=== PATIENT | female | born 1950 | race Caucasian/White ===

== ENCOUNTER → 2017-07-07 10:45 | Outpatient (CLI) | payer MEDICARE, OTHER, SELFPAY ==
--- NOTE | 2017-07-07 10:50 | MM_ITS ---
MM Dig screening mamm BI w/CAD CAD Screening COMPARISON: Digital mammograms 05/13/2015 and 05/27/2016 INDICATION: There is a history of breast cancer in patient's mother diagnosed after menopause. There has been previous biopsy right breast for benign disease. TECHNIQUE: Standard CC and MLO images were obtained. R2 CAD reviewed. FINDINGS: Moderate fibroglandular densities are seen in the subareolar regions of both breast and the findings are bilateral and symmetrical. There is a biopsy clip right breast. There is a mole marker right breast along with a benign-appearing calcification. Again noted are prominent hyperdense nodes in both axilla and these are stable and unchanged from previous exams. There is no suspicious lesion and no suspicious microcalcifications. IMPRESSION: Stable exam with no suspicious lesion seen BI-RADS Category: 2 Benign Finding(s) RECOMMENDED FOLLOW-UP: 1YR - 1 YEAR FOLLOW-UP (A letter has been sent to the patient regarding results of the study.)
== END ==
PROVIDERS: Family Provider Internal Medicine Adolescent Medicine; PCP Nurse Practitioner Family; Visit Provider Nurse Practitioner Family
DX: Z12.31 Encounter for screening mammogram for malignant neoplasm of breast (principal)
CPT/HCPCS: 77067

== ENCOUNTER → 2018-03-23 12:40 | Outpatient (CLI) | payer MEDICARE, OTHER, SELFPAY ==
--- NOTE | 2018-03-23 12:44 | XR_ITS ---
XR DEXA axial skeleton HISTORY: ITS.REASON: POST MENOPAUSAL ORDERING PHYSICIAN: Radha Tapia PATIENT AGE: 68 years COMPARISON: 02/05/2010 FINDINGS: The BMD measured at the Right femoral neck is 0.942 g/cm squared with a T score of -0.7. This is considered Normal according to the World Health Organization criteria. Fracture risk is Low. Treatment is advised. The L1 L4 density has a T score of -0.2 which is within normal limits. Ill-defined density has decreased by 3% and the hip density has decreased by 7% compared to the previous study IMPRESSION: Normal bone density, recommend follow-up exam March 2020
== END ==
PROVIDERS: Family Provider Internal Medicine Adolescent Medicine; PCP Nurse Practitioner Family; Visit Provider Nurse Practitioner Family
DX: Z13.820 Encounter for screening for osteoporosis (principal); Z78.0 Asymptomatic menopausal state
CPT/HCPCS: 77080

== ENCOUNTER → 2018-04-20 13:02 | Outpatient (CLI) | payer MEDICARE, OTHER, SELFPAY ==
--- NOTE | 2018-04-20 13:07 | XR_ITS ---
XR chest 2V HISTORY: ITS.REASON: SOB ORDERING PHYSICIAN: Radha Tapia PATIENT AGE: 68 years COMPARISON: None FINDINGS: The cardiomediastinal silhouette and pulmonary vascularity are within normal limits. The lungs are clear without infiltrates, suspicious nodules, or pleural effusions. No acute bony abnormalities. IMPRESSION: Negative chest, no acute finding
[2018-04-20 13:56] LABS: Basophils # 0.1 K/mm3 (0-0.2); Basophils % 0.7 % (0.1-2.0); Eosinophils # 0.2 K/mm3 (0.0-0.4); Hematocrit 41.3 % (37.0-47.0); Hemoglobin 13.4 g/dL (12.2-16.2); Lymphocytes # 2.4 K/mm3 (0.7-4.5); Lymphocytes % 22.7 % (10-50); Mean Corpuscular HGB Conc 32.4 g/dL (31.8-35.4); Mean Corpuscular Hemoglobin 30.2 pg (27.0-31.2); Mean Platelet Volume 6.7 fl (7.4-10.4); Monocytes # 0.6 K/mm3 (0.1-1.0); Monocytes % 5.5 % (1.7-9.3); Neutrophils # 7.3 K/mm3 (1.8-7.8); Neutrophils % 69.1 % (37.0-80.0); Platelet Count 296 K/mm3 (142-424); Red Blood Count 4.44 M/mm3 (4.20-5.40); Red Cell Distribution Width 14.1 % (11.5-17.5); White Blood Count 10.6 K/mm3 (4.8-10.8)
[2018-04-20 16:09] LABS: Alanine Aminotransferase 63 U/L (12-78); Albumin Level 3.8 gm/dL (3.4-5.0); Albumin/Globulin Ratio 0.9 (1.1-1.8); Alkaline Phosphatase 81 U/L (46-116); Anion Gap 0.9 mEq/L (5-15); Aspartate Amino Transferase 58 U/L (15-37); Bilirubin,Total 0.4 mg/dL (0.2-1.0); Blood Urea Nitrogen 18 mg/dL (7-18); Calcium 9.1 mg/dL (8.5-10.1); Carbon Dioxide 28 mmol/L (21.0-32.0); Chloride 106 mmol/L (98-107); Creatinine,Serum 0.92 mg/dL (0.55-1.02); Estimated Glomerular Filt Rate 60 ml/min (>60); GFR (African American) 73 ML/MIN (>60); Globulin 4.2 gm/dl (1.3-3.2); Glucose 163 mg/dL (74-106); Potassium 3.9 mmoL/L (3.5-5.1); Sodium 131 mmol/L (136-145)
== END ==
PROVIDERS: PCP Nurse Practitioner Family; Visit Provider Nurse Practitioner Family
DX: R06.02 Shortness of breath (principal)
CPT/HCPCS: 36415; 71046; 80053; 85025

== ENCOUNTER → 2018-07-20 10:20 | Outpatient (CLI) | payer MEDICARE, OTHER, SELFPAY ==
--- NOTE | 2018-07-20 10:26 | MM_ITS ---
MM Dig screening mamm BI w/CAD CAD Screening COMPARISON: Digital mammograms with CAD 07/07/2017 and 05/27/2016 INDICATION: There is a history of breast cancer in patient's mother diagnosed after menopause. There has been previous biopsy right breast for benign disease. TECHNIQUE: Standard CC and MLO images were obtained. R2 CAD reviewed. FINDINGS: Moderate scattered fibroglandular densities are seen in the central portions and subareolar regions of both breasts. There is a mole marker right breast along with a biopsy clip lower central portion of the breast at the 6:00 position. There is a benign-appearing calcification right breast. There is no new or suspicious lesion in either breast and there are no suspicious microcalcifications. There are multiple nodes in both axilla which were noted previously. IMPRESSION: Stable exam with moderate breast density no suspicious lesion seen BI-RADS Category: 2 Benign Finding(s) RECOMMENDED FOLLOW-UP: 1YR - 1 YEAR FOLLOW-UP (A letter has been sent to the patient regarding results of the study.)
== END ==
PROVIDERS: PCP Nurse Practitioner Family; Visit Provider Nurse Practitioner Family
DX: Z12.31 Encounter for screening mammogram for malignant neoplasm of breast (principal)
CPT/HCPCS: 77067

== ENCOUNTER → 2018-09-28 11:42 | Outpatient (CLI) | payer MEDICARE, OTHER, SELFPAY ==
--- NOTE | 2018-09-28 11:48 | XR_ITS ---
XR chest 2V HISTORY: Cough ITS.REASON: PERSISTENT ASTHMA ORDERING PHYSICIAN: Radha Tapia PATIENT AGE: 68 years COMPARISON: 04/20/2018 FINDINGS: The cardiomediastinal silhouette and pulmonary vascularity are within normal limits. There are increased markings in the right lower lobe consistent with pneumonia. Remaining lungs are clear. No acute bony findings. IMPRESSION: Right lower lobe pneumonia
[2018-09-28 12:51] LABS: Basophils # 0.1 K/mm3 (0-0.2); Basophils % 0.4 % (0.1-2.0); Eosinophils # 0.2 K/mm3 (0.0-0.4); Eosinophils % 1.8 % (0.1-12.0); Hematocrit 37.8 % (37.0-47.0); Hemoglobin 12.1 g/dL (12.2-16.2); Lymphocytes # 2.1 K/mm3 (0.7-4.5); Lymphocytes % 19.8 % (10-50); Mean Corpuscular HGB Conc 31.9 g/dL (31.8-35.4); Mean Corpuscular Hemoglobin 29.3 pg (27.0-31.2); Mean Corpuscular Volume 91.8 fl (81-99); Mean Platelet Volume 6.9 fl (7.4-10.4); Monocytes # 0.5 K/mm3 (0.1-1.0); Monocytes % 4.4 % (1.7-9.3); Neutrophils # 7.8 K/mm3 (1.8-7.8); Neutrophils % 73.6 % (37.0-80.0); Platelet Count 272 K/mm3 (142-424); Red Blood Count 4.12 M/mm3 (4.20-5.40); Red Cell Distribution Width 14.7 % (11.5-17.5); White Blood Count 10.7 K/mm3 (4.8-10.8)
[2018-09-28 15:45] LABS: Alanine Aminotransferase 39 U/L (12-78); Albumin Level 3.8 gm/dL (3.4-5.0); Alkaline Phosphatase 71 U/L (46-116); Anion Gap 11.7 mEq/L (5-15); Aspartate Amino Transferase 41 U/L (15-37); Bilirubin,Total 0.4 mg/dL (0.2-1.0); Blood Urea Nitrogen 15 mg/dL (7-18); Carbon Dioxide 29 mmol/L (21.0-32.0); Chloride 102 mmol/L (98-107); Creatinine,Serum 0.79 mg/dL (0.55-1.02); Estimated Glomerular Filt Rate 72 ml/min (>60); GFR (African American) 87 ML/MIN (>60); Globulin 3.7 gm/dl (1.3-3.2); Glucose 278 mg/dL (74-106); Potassium 4.7 mmoL/L (3.5-5.1); Sodium 138 mmol/L (136-145); Thyroid Stimulating Hormone 6.53 uIU/ml (0.358-3.740); Total Protein,Serum 7.5 gm/dL (6.4-8.2)
== END ==
PROVIDERS: PCP Nurse Practitioner Family; Visit Provider Nurse Practitioner Family
DX: R53.1 Weakness (principal); E03.4 Atrophy of thyroid (acquired); J45.41 Moderate persistent asthma with (acute) exacerbation
CPT/HCPCS: 36415; 71046; 80053; 84443; 85025

== ENCOUNTER → 2018-10-25 17:27 | Outpatient (CLI) | payer MEDICARE, OTHER, SELFPAY ==
--- NOTE | 2018-10-25 17:40 | XR_ITS ---
XR chest 2V HISTORY: ITS.REASON: BRONCHOPNEUMONIA ORDERING PHYSICIAN: Radha Tapia PATIENT AGE: 68 years COMPARISON: 09/28/2018 FINDINGS: The cardiomediastinal silhouette and pulmonary vascularity are within normal limits. There are increased markings in the right lower lobe suggesting right lower lobe pneumonia is somewhat worse compared to the previous exam.. The remaining lungs are clear. No acute bony anomalies. IMPRESSION: Worsening right lower lobe airspace disease
== END ==
PROVIDERS: PCP Nurse Practitioner Family; Visit Provider Nurse Practitioner Family
DX: J18.0 Bronchopneumonia, unspecified organism (principal)
CPT/HCPCS: 71046

== ENCOUNTER 2018-11-09 13:00 | Outpatient (RCR) | payer MEDICARE, OTHER, SELFPAY | END 2018-12-07 10:14 | disposition home or self-care (01) | LOC: PT.CARL 13:00 | PROVIDERS: Visit Provider Nurse Practitioner Family | DX: R53.1 Weakness (principal); R29.6 Repeated falls; J45.41 Moderate persistent asthma with (acute) exacerbation | CPT/HCPCS: 97110; 97112; 97116; 97163 ==

== ENCOUNTER → 2019-06-13 08:33 | Outpatient (CLI) | payer MEDICARE, OTHER, SELFPAY ==
--- NOTE | 2019-06-13 08:43 | CT_ITS ---
PROCEDURE: CT ABDOMEN PELVIS W CON CLINICAL INDICATION: ABD PAIN Lower abdominal pain COMPARISON: No exams were available for comparison TECHNIQUE: IV Contrast: 75ML OPTIRAY 350 Oral Contrast 20ml Gastroview Axial images obtained with sagittal and coronal reformats. All CT scans at the facility use one or more dose reduction, viz: automated exposure control, ma/kV adjustment per patient size (including targeted exams where dose is matched to indication, i.e. head), or iterative reconstruction technique. FINDINGS: LOWER THORAX: Old granulomatous disease. Calcification noted of the aortic root. Coronary artery calcification also noted. ABDOMEN & PELVIS: Within the left lobe of the liver on the initial enhanced images there is a small focal area of enhancement with a surrounding area of decreased attenuation. This measures 11 mm and is not demonstrated on the delayed images. There are multiple gallstones with questionable thickening of the gallbladder wall. The spleen, adrenal glands, and pancreas have an unremarkable appearance. There are some scattered small lymph nodes in the celiac region and portal area. Small amount of gas is present within the distal esophagus with mild thickening of the distal esophagus which could be due to esophagitis. There is a mild amount of retained colonic feces. No evidence of appendicitis. There is mild thickening of the ascending colon and hepatic flexure as well as thickening of the sigmoid colon and rectosigmoid region with minimal stranding of the pericolic fat at the rectosigmoid junction. Colitis is considered. No evidence of small-bowel obstruction or free air. There are scattered diverticula of the colon but no evidence of diverticulitis. There are degenerative changes of the lumbar spine with subcortical cystic changes of the femoral neck on both sides. IMPRESSION: 1. Cholelithiasis. There was questionable thickening of the gallbladder wall. Gallbladder ultrasound may be of further value. 2. Mild thickening of the colon as described above which may be related to colitis. 3. No evidence of appendicitis or diverticulitis. Dictated by: Kevin Quinteros MD 06/14/2019 11:06 Electronically signed by Kevin Quinteros MD in [place] 06/14/2019 11:06
[2019-06-13 09:01] LABS: Blood Urea Nitrogen 10 mg/dL (7-18); Creatinine,Serum 0.71 mg/dL (0.55-1.02); Estimated Glomerular Filt Rate 81 ml/min (>60); GFR (African American) 98 ML/MIN (>60)
== END ==
PROVIDERS: PCP Nurse Practitioner Family; Visit Provider Nurse Practitioner Family
DX: R10.30 Lower abdominal pain, unspecified (principal)
CPT/HCPCS: 36415; 74177; 82565; 84520; Q9967

== ENCOUNTER → 2019-06-21 08:33 | Outpatient (CLI) | payer MEDICARE, OTHER, SELFPAY ==
--- NOTE | 2019-06-21 08:34 | US_ITS ---
PROCEDURE: US ABDOMEN LIMITED CLINICAL INDICATION: chronic calculous choleycystitis,left hepatic lobe COMPARISON: No exams were available for comparison FINDINGS: PANCREAS: Unremarkable. No obvious mass or abnormal fluid collection. No ductal dilatation LIVER: There is a nonspecific lesion in the left liver measuring up to 10.6 x 12.5 x 10.2 millimeters with internal hypoechogenicity and peripheral hyper echogenicity. A necrotic neoplasm benign or malignant should be considered. Post contrast CT of the abdomen and pelvis is recommended to further evaluate. RIGHT KIDNEY: Unremarkable. Normal size and echogenicity. No hydronephrosis GALLBLADDER: Multiple gallstones are noted with thickened gallbladder wall to 8 millimeters. There is no biliary ductal dilatation common bile duct 3.8 millimeters IMPRESSION: 1. Cholelithiasis with gallbladder wall thickening. Acute versus chronic cholecystitis should be considered. 2. Space-occupying liver lesion. Postcontrast CT is recommended to further evaluate. Dictated by: Boyd Irwin 06/21/2019 10:50 Electronically signed by Boyd Irwin in [facility] 06/21/2019 10:50
[2019-06-21 09:55] LABS: Basophils % 0.5 % (0.1-2.0); Eosinophils % 0.1 % (0.1-12.0); Hematocrit 34.7 % (37.0-47.0); Hemoglobin 10.6 g/dL (12.2-16.2); Lymphocytes # 1.9 K/mm3 (0.7-4.5); Lymphocytes % 33.2 % (10-50); Mean Corpuscular HGB Conc 30.5 g/dL (31.8-35.4); Mean Corpuscular Hemoglobin 25.1 pg (27.0-31.2); Mean Corpuscular Volume 82.2 fl (81-99); Mean Platelet Volume 8.1 fl (7.4-10.4); Monocytes # 0.5 K/mm3 (0.1-1.0); Monocytes % 9.3 % (1.7-9.3); Neutrophils # 3.2 K/mm3 (1.8-7.8); Platelet Count 176 K/mm3 (142-424); Red Blood Count 4.22 M/mm3 (4.20-5.40); Red Cell Distribution Width 15.7 % (11.5-17.5); White Blood Count 5.7 K/mm3 (4.8-10.8)
[2019-06-21 12:31] LABS: Alanine Aminotransferase 22 U/L (12-78); Albumin Level 3.4 gm/dL (3.4-5.0); Albumin/Globulin Ratio 1.1 (1.1-1.8); Alkaline Phosphatase 77 U/L (46-116); Anion Gap 12.4 mEq/L (5-15); Aspartate Amino Transferase 32 U/L (15-37); Bilirubin,Total 0.3 mg/dL (0.2-1.0); Blood Urea Nitrogen 9 mg/dL (7-18); Calcium 8.7 mg/dL (8.5-10.1); Carbon Dioxide 28 mmol/L (21.0-32.0); Chloride 100 mmol/L (98-107); Creatinine,Serum 0.65 mg/dL (0.55-1.02); Estimated Glomerular Filt Rate 90 ml/min (>60); GFR (African American) 109 ML/MIN (>60); Glucose 262 mg/dL (74-106); Potassium 4.4 mmoL/L (3.5-5.1); Sodium 136 mmol/L (136-145); Total Protein,Serum 6.4 gm/dL (6.4-8.2)
== END ==
PROVIDERS: PCP Nurse Practitioner Family; Visit Provider Surgery
DX: R10.11 Right upper quadrant pain (principal); K80.10 Calculus of gallbladder with chronic cholecystitis without obstruction
CPT/HCPCS: 36415; 76705; 80053; 85025

== ENCOUNTER → 2019-06-21 09:28 | Outpatient (CLI) | payer MEDICARE, OTHER, SELFPAY ==
--- NOTE | 2019-06-21 09:47 | ECG_ITS ---
APPROVED REPORT Exam: Resting ECG HR:58 bpm ECG Measurements Heart Rate 58 AXES OH 174 P 37 QRSd 82 QRS -64 QT 452 T 23 QTc 443 <Conclusion> Sinus bradycardia RSR' or QR pattern in V1 suggests right ventricular conduction delay Left anterior fascicular block Nonspecific ST-T wave abnormalities Abnormal ECG Electronically signed by : Abdulaziz Mcmahan, 06/21/2019 16:58:32
== END ==
PROVIDERS: Visit Provider Surgery
DX: Z01.818 Encounter for other preprocedural examination (principal); K80.10 Calculus of gallbladder with chronic cholecystitis without obstruction
CPT/HCPCS: 36415; 76705; 80053; 85025; 93005

== ENCOUNTER → 2019-10-11 10:57 | Outpatient (CLI) | payer MEDICARE, OTHER, SELFPAY ==
--- NOTE | 2019-10-11 11:03 | MM_ITS ---
PROCEDURE: MM DIG SCREENING MAMM BI W/CAD Digital Breast Tomosynthesis Included CLINICAL INDICATION: SCREENING There is a history of breast cancer patient's mother diagnosed after menopause. There has been a previous biopsy right breast for benign disease. COMPARISON: [facility] MM Dig screening mamm BI w/CAD from 07/07/2017 DEXAAX XR DEXA axial skeleton from 03/23/2018 [facility] MM Dig screening mamm BI w/CAD from 07/20/2018 TECHNIQUE: Standard CC and MLO images and 3D Tomosynthesis was obtained. R2 CAD reviewed. FINDINGS: Moderate diffuse fibroglandular densities are seen in the central portions of both breasts somewhat more prominent right breast than left. There is a biopsy clip right breast and a benign appearing calcification. There are several normal appearing nodes in both axilla. There is no suspicious lesion and no suspicious microcalcifications. IMPRESSION: Moderate breast density with no suspicious lesions seen BI-RAD Category: 2 Benign Finding(s) FOLLOW-UP: 1YR 1 Year Follow-up (A letter has been sent to the patient regarding results of the study.) Dictated by: Dr. Camron Mason MD 10/12/2019 13:[address] Camron Mason MD in [place] 10/12/2019 13:27
== END ==
PROVIDERS: PCP Nurse Practitioner Family; Visit Provider Nurse Practitioner Family
DX: Z12.31 Encounter for screening mammogram for malignant neoplasm of breast (principal)
CPT/HCPCS: 77063; 77067

== ENCOUNTER → 2019-10-25 08:25 | Outpatient (CLI) | payer MEDICARE, OTHER, SELFPAY ==
--- NOTE | 2019-10-25 08:45 | CT_ITS ---
PROCEDURE: CT ABDOMEN WO/W CON CLINICAL HISTORY: left hepatic lobe lesion Follow-up left hepatic lobe lesion, right-sided abdominal pain COMPARISON: CT ABDOMEN PELVIS W CON from 06/13/2019 TECHNIQUE: Images are obtained without and with contrast with dynamic post enhanced images Axial images obtained with sagittal and coronal reformats. All CT scans at the facility use one or more dose reduction, viz: automated exposure control, ma/kV adjustment per patient size (including targeted exams where dose is matched to indication, i.e. head), or iterative reconstruction technique. FINDINGS: Unenhanced images demonstrates a vague hypodense lesion in the left hepatic lobe at 11 mm the in the upper aspect of segment 3. On the arterial phase and portal venous phases there is a central area of enhancement. This is similar when compared to the previous exam. This lesion is essentially nondetectable on the 5 minutes delayed images. The. This pattern of enhancement matches the blood pool on every sequence and may represent an atypical hemangioma. Incidental note is made of cholelithiasis. No additional liver lesions are evident. There are multiple nonobstructing right renal calculi measuring up to 3 mm in the upper pole. No ureteral calculi. No hydronephrosis. There is scattered small retroperitoneal and peritoneal lymph nodes. IMPRESSION: Stable appearance of the enhancing lesion in the left hepatic lobe segment 3. There is central enhancement with filling in of the lesion having same degree of enhancement as the blood pool on every sequence which is compatible with a hemangioma. Suggest 6 month follow-up to confirm interval stability. Cholelithiasis Dictated by: Kevin Quinteros MD 10/26/2019 10:09 Electronically signed by Kevin Quinteros MD in [place] 10/26/2019 10:09
[2019-10-25 08:47] LABS: Blood Urea Nitrogen 11 mg/dl (7-17); Estimated Glomerular Filt Rate 122 ml/min (>60); GFR (African American) 147 ML/MIN (>60)
== END ==
PROVIDERS: PCP Nurse Practitioner Family; Visit Provider Surgery
DX: K82.9 Disease of gallbladder, unspecified (principal)
CPT/HCPCS: 36415; 74160; 74170; 82565; 84520; Q9967

== ENCOUNTER → 2019-11-02 09:36 | Outpatient (CLI) | payer MEDICARE, OTHER, SELFPAY ==
[2019-11-02 10:15] LABS: Basophils % 0.7 % (0.1-2.0); Eosinophils % 0.1 % (0.1-12.0); Hematocrit 34.1 % (37.0-47.0); Hemoglobin 10.7 g/dL (12.2-16.2); Lymphocytes # 2.2 K/mm3 (0.7-4.5); Lymphocytes % 40.4 % (10-50); Mean Corpuscular HGB Conc 31.3 g/dL (31.8-35.4); Mean Corpuscular Hemoglobin 24.8 pg (27.0-31.2); Mean Corpuscular Volume 79.3 fl (81-99); Mean Platelet Volume 7.5 fl (7.4-10.4); Monocytes # 0.4 K/mm3 (0.1-1.0); Monocytes % 7.3 % (1.7-9.3); Neutrophils # 2.9 K/mm3 (1.8-7.8); Neutrophils % 51.5 % (37.0-80.0); Platelet Count 183 K/mm3 (142-424); Red Cell Distribution Width 15.7 % (11.5-17.5); White Blood Count 5.6 K/mm3 (4.8-10.8)
[2019-11-02 10:41] LABS: Chloride 102 mmol/L (98-107)
[2019-11-02 10:42] LABS: Sodium 138 mmol/L (136-145)
[2019-11-02 10:44] LABS: Alanine Aminotransferase 22 U/L (12-78); Alkaline Phosphatase 80 U/L (38-126); Aspartate Amino Transferase 37 U/L (14-36); Bilirubin,Total 0.7 mg/dl (0.2-1.3); Blood Urea Nitrogen 8 mg/dl (7-17); Carbon Dioxide 31 mmol/L (22.0-30.0); Estimated Glomerular Filt Rate 99 ml/min (>60); GFR (African American) 119 ML/MIN (>60)
[2019-11-02 10:45] LABS: Albumin Level 3.8 g/dl (3.5-5.0); Albumin/Globulin Ratio 1.3 (1.1-1.8); Total Protein,Serum 6.8 g/dl (6.3-8.2)
[2019-11-02 10:50] LABS: Calcium 9.1 mg/dl (8.4-10.2)
[2019-11-02 11:01] LABS: Glucose 307 mg/dl (74-100)
[2019-11-02 11:10] LABS: Coronavirus 19 IgG Antibody Negative (Negative); Coronavirus 19 IgM Antibody Negative (Negative)
== END ==
PROVIDERS: Visit Provider Surgery
DX: K82.9 Disease of gallbladder, unspecified (principal); Z01.818 Encounter for other preprocedural examination
CPT/HCPCS: 36415; 80053; 85025; 86328

== ENCOUNTER 2019-11-03 06:15 | Day surgery (SDC) | payer MEDICARE, OTHER, SELFPAY ==
--- NOTE | 2019-11-01 15:40 | SUR.PREOP ---
11/01/2019 @ 5979--PHONE CALL MADE TO PATIENT. PATIENT UNDERSTANDS THAT LAB WORK AND COVID TESTING NEEDS TO BE COMPLETED @ 845 ON 11/02/2019. PATIENT UNDERSTANDS IF LAB WORK AND COVID-19 TESTS ARE NOT COMPLETED BY 12PM ON THAT DATE, THE SURGERY SCHEDULED WILL BE CANCELLED AND RESCHEDULED FOR ANOTHER TIME.
[2019-11-03] VITALS (14 sets, daily range): BP systolic 155–186; BP diastolic 68–88; PULSE 81–93; RESP 12–24; TEMP 36.6–43; O2SAT 92–98
--- NOTE | 2019-11-03 07:48 | HMH.ANESCL ---
[facility] Anesthesia Checklist - Structural Data Admitted From: Home Planned Operative Procedure/s: carolina baca Consent for Planned Operative Procedure(s) Verified: Yes - Additional verifications Anesthesia Reactions: No Hx Blood Transfusions: Yes Blood Transfusion Reaction: No - Airway Assessment C-Spine Mobility Assessed: Yes TMJ Mobility Assessed: Yes Dentition: Dentures-good fit - Neurological Assessment Level of Consciousness: Awake, Alert, Appropriate - Anesthesia Plan Anesthesia Risk discussed: Yes Anesthesia Plan: Verified ASA Class: III Anesthesia Type: General [facility] History I have reviewed the patient's past medical history: Yes Medical History: Reports:: Anxiety, Diabetes Mellitus Type 1, Diabetes Mellitus Type 2, Hypertension Denies:: Cancer, Internal Pacemaker, MRSA, Seizures *Have you ever received a pneumonia vaccine?: Yes *Have you received a flu vaccine this season?: Yes Other Medical History: Denies: Blood Transfusion Reaction Anesthesia experience/problems:: none Laterality Cases: Right: Breast Biopsy Other Surgeries: Yes: Colonoscopy, Tubal Ligation, Other. No: Pacemaker Amputation: No Fractures: No - *Social History Educational Level: Completed College Smoking Status: Former smoker Alcohol Intake: never Substance Use Type: denies use *Occupational Status:: employed Housing: house Household Members: none *Travel in the last 8 weeks: None - Psychiatric History Pschychiatric History:: Reports:: Anxiety Family Hx:: Diabetes, Heart Attack, Thyroid Disorder
--- NOTE | 2019-11-03 08:53 | SUR.OPER ---
[id number]-family updated at this time
[2019-11-03 08:57] LABS: POC Glucose,Bedside 353 (70-110)
--- NOTE | 2019-11-03 09:04 | P.OP_ITS ---
Date of procedure: 11/03/19 Pre-op Diagnosis:: Chronic calculus cholecystitis Post-op Diagnosis:: Same Procedure performed:: Laparoscopic cholecystectomy Surgeon:: John Sims MD HOT DIP TINNING SUPERVISOR:: Segundo Daley Anesthesia: GETA Estimated blood loss (mL): 25 Operative findings:: Severe chronic inflammatory changes Severe pericholecystic fat stranding Severe gallbladder wall thickening Multiple large stones Fairly enlarged liver Enmanuel-Mccullough drains placed in gallbladder fossa Operative note:: After informed consent was obtained, the patient was taken to the operating room and placed in the supine position. General anesthesia was induced and the abdomen was prepped and draped in a sterile fashion. After infiltration with l ocal anesthetic an infraumbilical incision was made. A Veress needle was placed in position. The abdomen was insufflated. A 5 mm optical trocar was placed in position. Under direct visualization, a 12 mm trocar was placed in the subxiphoid position and 2 additional 5 mm trocars were placed in the right upper quadrant. The gallbladder was elevated. Maneuvering was very difficult secondary to severe chronic cholecystitis and moderate hepatomegaly. Severe thickening of the wall and pericholecystic fat stranding noted. The tissue around the cystic duct was carefully dissected. 3 clips were placed proximally and the duct was transected with harmonic benjamin. Harmonic benjamin were then utilized to dissect the gallbladder away from the liver margin with careful attention to the control of the cystic artery. The gallbladder was placed in a retrieval bag and removed through the subxiphoid trocar site. The right upper quadrant was thoroughly irrigated. No active bleeding or bile leak was noted. 2 flat #10 Enmanuel-Mccullough drains were placed in the gallbladder fossa and exited through the right upper quadrant trocar sites. Fascia at the subxiphoid trocar site was reapproximated utilizing 0 Ethibond. The remaining trocars were removed. All wounds were irrigated and skin was closed with 4-0 Monocryl in a subcuticular fashion. Steri-Strips were applied. The patient's anesthetic agents were reversed and extubation was completed prior to transfer to recovery in stable condition. Condition: stable Disposition: PACU Specimens:: Gallbladder Complications:: No immediate
--- NOTE | 2019-11-03 09:14 | HMH.ANESI ---
[facility] Anesthesia Record Part I Intake, IV Amount: 1,400 Estimated blood loss (mL): 0 Urine output (mL): 0 Blood Pressure: 172/85 SaO2: 95 Pulse Rate: 87 Respiratory Rate: 12 Temperature: 98.5 F Patient is:: Awake, Stable Stable to PACU at:: 09:10
[2019-11-03 09:30] LABS: POC Glucose,Bedside 348 (70-110)
--- NOTE | 2019-11-03 14:37 | PC.NURSE ---
Pt has 2 CHRIS drains and was instructed on use. Reinforced dressing on middle drain
--- NOTE | 2019-11-03 17:17 | HMH.ANESII ---
[facility] Anesthesia Record Part II Discharge Time: 09:40 [facility] assessment reviewed?: Yes Patient Condition:: Good Anesthesia Complications:: None Swallowing reflex intact?: Yes Cyanosis?: No Blood Pressure: 155/82 Pulse Rate: 93 Temperature: 98.1 F Mental Status: Alert & Oriented Pain level:: 0 Nausea and/or vomitting:: None Intake, IV Amount: 1,500
--- NOTE | 2019-11-03 18:42 | SUR.PHASEI ---
FSBS 348 at 0921-no action taken per [place] [employer] INFORMATION CLERK
== END 2019-11-03 11:15 | disposition home or self-care (01) ==
LOC: OR 06:18
PROVIDERS: PCP Nurse Practitioner Family; Visit Provider Surgery
PROC: 0FT44ZZ Resection of Gallbladder, Percutaneous Endoscopic Approach (ICD-10-PCS; CPT 47562; principal; 2019-11-03 07:30)
DX: K80.44 Calculus of bile duct with chronic cholecystitis without obstruction; K76.0 Fatty (change of) liver, not elsewhere classified; Z79.84 Long term (current) use of oral hypoglycemic drugs; Z79.899 Other long term (current) drug therapy; I10 Essential (primary) hypertension; E10.9 Type 1 diabetes mellitus without complications; F41.9 Anxiety disorder, unspecified; E03.9 Hypothyroidism, unspecified
CPT/HCPCS: 47562; 82962; 88304; 96374; J2405

== ENCOUNTER 2019-11-06 18:18 | Inpatient (IN) | payer MEDICARE, OTHER, SELFPAY ==
[2019-11-06] VITALS (10 sets, daily range): BP systolic 135–200; BP diastolic 66–101; PULSE 90–136; RESP 16–19; TEMP 37.1–38.7; O2SAT 90–97; BMI 25.3; BMI 24.6
--- NOTE | 2019-11-06 18:40 | XR_ITS ---
PROCEDURE: XR CHEST PORTABLE CLINICAL HISTORY: post op Nausea and vomiting, recent cholecystectomy COMPARISON: CXR2V XR chest 2V from 04/20/2018 CXR2V XR chest 2V from 09/28/2018 CT ABDOMEN PELVIS W CON from 11/06/2019 FINDINGS: The cardiomediastinal silhouette and pulmonary vascularity are within normal limits. The lungs are clear without infiltrates, suspicious nodules, or pleural effusions. No acute bony abnormalities. IMPRESSION: No acute findings. Dictated by: Kevin Quinteros MD 11/07/2019 06:40 Electronically signed by Kevin Quinteros MD in [place] 11/07/2019 06:40
--- NOTE | 2019-11-06 19:05 | CT_ITS ---
PROCEDURE: CT ABDOMEN PELVIS W CON CLINICAL INDICATION: abd. pain Generalized abdominal pain. Recent gallbladder surgery, drainage around the surgical site with increasing pain COMPARISON: CT ABDOMEN WO/W CON from 10/25/2019 TECHNIQUE: IV Contrast: 75ML OPTIRAY 350 Oral Contrast none Axial images obtained with sagittal and coronal reformats. All CT scans at the facility use one or more dose reduction, viz: automated exposure control, ma/kV adjustment per patient size (including targeted exams where dose is matched to indication, i.e. head), or iterative reconstruction technique. FINDINGS: LOWER THORAX: No acute finding. There is mild dilatation of the ascending aorta at 4.2 cm ABDOMEN & PELVIS: There are post cholecystectomy changes. There are [address] 1 0 which lies in the gallbladder fossa and is exiting anteriorly on the left. A 2nd drain is placed laterally and lies inferior to the right hepatic lobe and extends superiorly toward the hilum of the liver. There is a small amount of fluid in the gallbladder fossa as to be expected from the recent postsurgical state. There is moderate amount of stranding of the fat in the region of the gallbladder fossa and along the right hepatic lobe in the right upper quadrant. The spleen, pancreas, and adrenal glands are unremarkable. Hypodense lesion once again noted involving the left lobe of the liver at 11 mm with central enhancement not significantly changed possibly due to an atypical hemangioma there is a small hiatal hernia suspected. There are several punctate right renal calculi measuring up to 3 mm. No hydronephrosis. No ureteral calculus. There are few scattered small nodes in the retroperitoneum and periportal region not significantly changed.. There is thickening of the hepatic flexure of the colon which is adjacent to the postsurgical changes in the right upper quadrant and could be related to colitis or reactive wall thickening. There is diverticulosis of the descending colon but no evidence of diverticulitis. No pelvic mass abnormal fluid collection or focal inflammatory change evident. No acute bony findings. There are mild degenerative changes of the spine and hips with some sub chondral cystic changes of the hips. There postsurgical changes of the abdominal wall in the right upper quadrant IMPRESSION: 1. Evidence of recent cholecystectomy with inflammatory stranding in the right upper quadrant and a small amount of fluid in the gallbladder fossa. No localized fluid collections are evident. If there is suspicion for bile leak then, hepatobiliary scan may provide further evaluation. 2. Short-segment wall thickening in the hepatic flexure which could be due to reactive thickening from the recent surgery or mild colitis 3. Right nephrolithiasis 4. Other incidental findings as detailed above. Dictated by: Kevin Quinteros MD 11/07/2019 06:32 Electronically signed by Kevin Quinteros MD in [place] 11/07/2019 06:32
[2019-11-06 19:16] LABS: Microscopic, Urine URINE MICROSCOPIC (MICROSCOPIC)
[2019-11-06 19:21] LABS: Basophils # 0.1 K/mm3 (0-0.2); Basophils % 0.9 % (0.1-2.0); Hematocrit 37.4 % (37.0-47.0); Hemoglobin 11.5 g/dL (12.2-16.2); Lymphocytes # 1.8 K/mm3 (0.7-4.5); Lymphocytes % 16.8 % (10-50); Mean Corpuscular HGB Conc 30.8 g/dL (31.8-35.4); Mean Corpuscular Hemoglobin 25.1 pg (27.0-31.2); Mean Corpuscular Volume 81.5 fl (81-99); Mean Platelet Volume 7.9 fl (7.4-10.4); Monocytes # 0.6 K/mm3 (0.1-1.0); Monocytes % 5.4 % (1.7-9.3); Neutrophils # 8.1 K/mm3 (1.8-7.8); Neutrophils % 76.9 % (37.0-80.0); Platelet Count 295 K/mm3 (142-424); Red Blood Count 4.59 M/mm3 (4.20-5.40); Red Cell Distribution Width 16.1 % (11.5-17.5); White Blood Count 10.6 K/mm3 (4.8-10.8)
[2019-11-06 19:22] LABS: Chloride 95 mmol/L (98-107); Potassium 3.5 mmoL/L (3.5-5.1); Sodium 132 mmol/L (136-145)
--- NOTE | 2019-11-06 19:24 | HMH.EDNVD ---
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: unspecified correction insulin use status Diabetes mellitus complication status: with other specified complication Qualified Code(s): E11.69 - Type 2 diabetes mellitus with other specified complication Disposition: Admitted as Observation Condition on Discharge: Good Instructions: DI for Acute Abdomen Referrals: Radha Tapia [Primary Care Provider] - - Critical Care Critical Care Time: No Attestation: On 11/06/19, the high probability of a clinically significant, sudden or life threatening deterioration of the following system(s) required my full and direct attention, intervention and personal management. The time I documented below is in addition to time spent performing reported procedures but includes the following listed in this critical care notation. Medical Decision Making - Medical Records Medical records reviewed: Yes: I reviewed the patient's medical records. - Binu Inquiry Pt receiving controlled substance: No Vital Signs: 11/06/19 18:20 11/06/19 19:01 11/06/19 20:38 Temperature 100.7 F H 101.7 F H Temperature Source Oral Oral Pulse Rate [Left Radial] 110 H 109 H Respiratory Rate 18 Blood Pressure [Right Radial Artery] 197/89 H 158/86 H Blood Pressure Mean [Right Radial Artery] 125 110 Blood Pressure Source [Right Radial Artery] Automatic Cuff Blood Pressure Position [Right Radial Artery] Sitting Sitting 02 Sat by Pulse Oximetry 92 L 93 L Oxygen Delivery Method Room Air Room Air 11/06/19 20:58 Temperature Temperature Source Pulse Rate [Left Radial] 136 H Respiratory Rate 18 Blood Pressure [Right Radial Artery] 200/100 H Blood Pressure Mean [Right Radial Artery] 133 Blood Pressure Source [Right Radial Artery] Manual Cuff/ Auscultation Blood Pressure Position [Right Radial Artery] 02 Sat by Pulse Oximetry 97 Oxygen Delivery Method Room Air - Lab Data Lab results reviewed: Yes: I reviewed the patient's lab results. Lab Results 11/06/19 19:00: WBC 10.6, RBC 4.59, Hgb 11.5 L, Hct 37.4, MCV 81.5, MCH 25.1 L, MCHC 30.8 L, RDW 16.1, Plt Count 295, MPV 7.9, Neut % (Auto) 76.9, Lymph % (Auto) 16.8, [place] % (Auto) 5.4, Eos % (Auto) 0.0 L, Baso % (Auto) 0.9, Neut # (Auto) 8.1 H, Lymph # (Auto) 1.8, [place] # (Auto) 0.6, Eos # (Auto) 0.0, Baso # (Auto) 0.1 11/06/19 19:00: Sodium 132 L, Potassium 3.5, Chloride 95 L, Carbon Dioxide 29, Anion Gap 11.5, BUN 9, Creatinine 0.70, Estimated Creat Clear 60, Estimated GFR 82, Est GFR ( Amer) 100, Glucose 416 H*, Calcium 8.9, Total Bilirubin 0.6, AST 35, ALT 30, Alkaline Phosphatase 83, Total Protein 7.6, Albumin 4.1, Globulin 3.5 H, Albumin/Globulin Ratio 1.2 11/06/19 19:00: Lactate 1.9 11/06/19 19:00: Urine Color Yellow, Urine Appearance Clear, Urine pH 7.0, Ur Specific [place] 1.015, Urine Protein Negative, Urine Glucose (UA) 3+, Urine Ketones 1+, Urine Blood Trace-i, Urine Nitrate Positive, Urine Bilirubin Negative, Urine Urobilinogen 0.2, Ur Leukocyte Esterase Negative, Urine RBC 3-5, Urine WBC 3-5, Ur Squamous Epith Cells 5-10, Urine Bacteria Trace Result diagrams: 11/06/19 19:00 11/06/19 19:00 Orders (Tests/Meds): ED MEDICATIONS Generic Name Dose Route Start Last Admin Trade Name Freq PRN Reason Stop Dose Admin Sodium Chloride 1,000 mls @ 999 mls/hr 11/06/19 18:45 11/06/19 19:03 Sod Chlor 0.9% 1000ml Bag IV 11/06/19 19:45 999 mls/hr .Q1H1M DONAVAN Administration Piperacillin Sod/Tazobactam 50 mls @ 100 mls/hr 11/06/19 21:30 Sod 3.375 gm/ Sodium Chloride IV 11/20/19 21:29 Q6H DONAVAN Protocol Discontinued Medications Generic Name Dose Route Start Last Admin Trade Name Freq PRN Reason Stop Dos
[2019-11-06 19:25] LABS: Alanine Aminotransferase 30 U/L (12-78); Albumin Level 4.1 g/dl (3.5-5.0); Albumin/Globulin Ratio 1.2 (1.1-1.8); Alkaline Phosphatase 83 U/L (38-126); Anion Gap 11.5 mEq/L (5-15); Aspartate Amino Transferase 35 U/L (14-36); Bilirubin,Total 0.6 mg/dl (0.2-1.3); Blood Urea Nitrogen 9 mg/dl (7-17); Calcium 8.9 mg/dl (8.4-10.2); Carbon Dioxide 29 mmol/L (22.0-30.0); Creatinine Clearance Estimated 60 mL/min (50-200); Estimated Glomerular Filt Rate 82 ml/min (>60); GFR (African American) 100 ML/MIN (>60); Globulin 3.5 g/dL (1.3-3.2); Lactic Acid 1.9 mmol/L (0.7-2.1); Total Protein,Serum 7.6 g/dl (6.3-8.2)
[2019-11-06 19:26] LABS: Appearance,Urine CLEAR (Clear); Bilirubin,Urine Negative (Negative); Blood, Urine TRACE-I (Negative); Color,Urine YELLOW (Yellow); Glucose,Urine (UA) 3+ (Negative); Ketones,Urine 1+ (Negative); Leukocyte Esterase,Urine Negative (Negative); Nitrate,Urine POSITIVE (Negative); Protein,Urine Negative (Negative); Specific Gravity, Urine 1.015 (1.005-1.030); Urobilinogen,Urine 0.2 EU/dl (0.2)
--- NOTE | 2019-11-06 19:37 | PC.NURSE ---
pt to rad
[2019-11-06 19:48] LABS: Glucose 416 mg/dl (74-100)
[2019-11-06 19:55] LABS: Bacteria,Urine Trace /lpf
--- NOTE | 2019-11-06 20:46 | ECG_ITS ---
APPROVED REPORT Exam: Resting ECG HR:138 bpm ECG Measurements Heart Rate 138 AXES MO 156 P 75 QRSd 74 QRS -78 QT 268 T 77 QTc 406 <Conclusion> Sinus tachycardia with premature atrial complexes Left anterior fascicular block Nonspecific ST and T wave abnormality Abnormal ECG Electronically signed by : Raleigh Kimble, 11/07/2019 15:48:43
--- NOTE | 2019-11-06 21:06 | PC.NURSE ---
speaking with Dr. Norman
--- NOTE | 2019-11-06 21:16 | PC.NURSE ---
spoke with moris from pharmacy he recommended 3.375gm q6h
[2019-11-06 21:19] LABS: C-Reactive Protein 70.9 mg/L (0-4)
[2019-11-06 21:36] LABS: Troponin I < 0.01 ng/ml (0.00-0.034)
[2019-11-06 21:37] LABS: Erythrocyte Sedimentation Rate 131 mm/hr (0-30)
--- NOTE | 2019-11-06 22:00 | PC.NURSE ---
report called to [facility]
--- NOTE | 2019-11-06 22:15 | PC.NURSE ---
pt transported via stretcher by med/surg staff
--- NOTE | 2019-11-06 22:24 | PC.NURSE ---
PT ARRIVED TO THE FLOOR VIA STRETCHER FROM ED @ [phone]
--- NOTE | 2019-11-06 23:10 | PC.NURSE ---
PHOTO CONSENT, AND PHOTOS OBTAINED OF CHRIS DRAIN SITES ON ADMISSION. FOLLOWING OBTAINING PHOTOS FOR CHART, DRESSING APPLIED AT THE CHRIS DRAIN SITES. TELFA AND TEGADERM APPLIED.
[2019-11-07] VITALS (10 sets, daily range): BP systolic 115–160; BP diastolic 62–84; PULSE 80–113; RESP 18–19; TEMP 36.6–37.8; O2SAT 90–92; BMI 24.7
[2019-11-07 00:04] LABS: Troponin I 0.07 ng/ml (0.00-0.034)
[2019-11-07 03:22] LABS: Troponin I 0.05 ng/ml (0.00-0.034)
--- NOTE | 2019-11-07 04:12 | PC.NURSE ---
A&OX4. PT HAS TOLERATED 1L NC WELL THROUGHOUT SHIFT. LUNG SOUNDS BILATERALLY CLEAR. RESPIRATIONS REGULAR AND UNLABORED. NO COUGH NOTED. SINUS TACH NOTED ON TELE. ACTIVE BOWEL SOUNDS HEARD IN ALL 4 QUADRANTS. NO BM NOTED THIS SHIFT. ABDOMEN SOFT AND NONTENDER EXCEPT AROUND SURGICAL INCISION R/T LAPCHOLE, IT IS FIRM. 3 INCISIONS NOTED TO ABDOMEN. SITE IS RED AND OOZING SEROUS DRAINAGE. 2 CHRIS DRAINS NOTED. THE ONE CLOSEST TO THE MID EPIGASTRIC REGION IS DRAINING SANGUINEOUS FLUID. THE ONE CLOSEST TO HER SIDE IS NOTED TO HAVE SEROUS DRAINAGE. TUBING WAS STRIPPED Q 4 HOURS. PT WAS ASSISTED TO THE RESTROOM BY STAFF WITH STANDBY ASSISTANCE. PT TOLERATED WELL. PT RECEIVED A BATH BY THE [employer]. PT HAS HAD PAIN INTERMITTENTLY THROUGHOUT SHIFT. MORPHINE AND TYLENOL ADMINISTERED PER AUG. ATTEMPTING TO CALL DR BLAKE AT THIS TIME REGARDING PT'S PAIN AND ELEVATED TROPONIN. PAGED AT [phone] AND [phone]. AWAITING CALL BACK. HAND FIELD CONTACT PERSON EQUAL. +2 PULSES NOTED THROUGHOUT. SINCE ADMISSION, PT HAS REMAINED AFEBRILE. NO EDEMA NOTED. NS INFUSING AT 75ML/HR. PT RESTING COMFORTABLY IN BED. BED IN LOWEST POSITION. CALL LIGHT WITHIN REACH. VSS. NO CONCERNS AT THIS TIME. WILL CONTINUE TO MONITOR.
[2019-11-07 06:24] LABS: POC Glucose,Bedside 453 (70-110)
[2019-11-07 06:26] LABS: Basophils # 0.1 K/mm3 (0-0.2); Lymphocytes # 1.6 K/mm3 (0.7-4.5); Mean Corpuscular Hemoglobin 25.2 pg (27.0-31.2); Monocytes # 0.8 K/mm3 (0.1-1.0); Red Cell Distribution Width 16.3 % (11.5-17.5)
[2019-11-07 06:34] LABS: Chloride 99 mmol/L (98-107)
[2019-11-07 06:35] LABS: Potassium 3.5 mmoL/L (3.5-5.1); Sodium 134 mmol/L (136-145)
[2019-11-07 06:38] LABS: Anion Gap 13.5 mEq/L (5-15); Blood Urea Nitrogen 10 mg/dl (7-17); Calcium 8.1 mg/dl (8.4-10.2); Carbon Dioxide 25 mmol/L (22.0-30.0); Creatinine Clearance Estimated 58 mL/min (50-200); Estimated Glomerular Filt Rate 82 ml/min (>60); GFR (African American) 100 ML/MIN (>60)
--- NOTE | 2019-11-07 06:40 | HMH.GSHP ---
HPI HPI: Patient is a 69-year-old female from [facility] under the care of Radha Tapia who had symptoms consistent with chronic calculus cholecystitis for several months characterized by some abdominal pain with nausea and occasional vomiting. She had a CT scan which revealed gallstones which was confirmed by ultrasound. She had seen Dr. Sims in the office and scheduled for cholecystectomy which was performed on 11/02/19. She underwent laparoscopic cholecystectomy and was found to have Severe chronic inflammatory changes, Severe pericholecystic fat stranding, Severe gallbladder wall thickening, Multiple large stones, Fairly enlarged liver . She did have a couple of Enmanuel-Mccullough drains placed. She was able to be discharged and managed as an outpatient. She presented to the emergency department late last night mainly with concerns for drainage around the drain sites. However, she was noted to have appreciable tachycardia and fever of 101.7 Fahrenheit. She was found to have markedly elevated glucose. Her CBC, liver function tests, lactate were within reasonable limits. Drain output is serous and nonbilious and nonpurulent. CT scan preliminarily reveals only expected postoperative changes. Arrangements were made for admission for inpatient management. [facility] History I have reviewed the patient's past medical history: Yes Medical History: Reports:: Anxiety, Diabetes Mellitus Type 2, Hypertension Denies:: Cancer, Diabetes Mellitus Type 1, Internal Pacemaker, MRSA, Seizures *Have you ever received a pneumonia vaccine?: Yes *Have you received a flu vaccine this season?: Yes Other Medical History: Reports: Thyroid Disease. Denies: Blood Transfusion Reaction Laterality Cases: Right: Breast Biopsy Other Surgeries: Yes: Colonoscopy, Tubal Ligation, Other. No: Pacemaker Amputation: No Fractures: No - *Social History Educational Level: Completed College Smoking Status: Former smoker Alcohol Intake: current Alcohol Intake Frequency:: holidays/special occasions only Substance Use Type: denies use *Occupational Status:: employed Housing: other Household Members: none *Travel in the last 8 weeks: None - Psychiatric History Pschychiatric History:: Reports:: Anxiety Family Hx:: Cancer, Diabetes, Hypertension, Thyroid Disorder, Mental illness Review of Systems - Review of Systems Review of systems:: pertinent systems reviewed and negative unless documented below - *Neurologic Reports weakness, Denies localized weakness, Denies headache(s), Denies seizure-like activity Meds Home Medications Medication Instructions Recorded Confirmed Type Levothyroxine Sodium 200 mcg PO DAILY 11/16/18 11/06/19 History [Levothyroxine 200mcg (0.2mg) Tab] Losartan Potassium 50 mg PO DAILY 11/16/18 11/06/19 History Metformin HCl [Metformin 1000mg 1,000 mg PO BID 11/16/18 11/06/19 History Tablets] Metoprolol Succinate 25 mg PO DAILY 11/16/18 11/06/19 History Montelukast Sodium [Montelukast 10 mg PO DAILY 11/16/18 11/06/19 History 10mg Tab] Simvastatin 20 mg PO DAILY 11/16/18 11/06/19 History glipiZIDE [Glucotrol] 5 mg PO DAILY 11/16/18 11/06/19 History lamoTRIgine [Lamotrigine] 200 mg PO DAILY 11/16/18 11/06/19 History Insulin Glargine,Hum.rec.anlog 15 unit SQ DAILY 11/02/19 11/06/19 History [Basaglar Kwikpen U-100] Hydrocod/Acet 5/325 mg [[place] 1 - 2 tab PO Q6HP PRN #23 tab 11/03/19 11/06/19 Rx 5/325mg tablet] Allergies Allergy/AdvReac Type Severity Reaction Status Date / Time No Known Allergies Allergy Verified 11/06/19 23:23 Exam Vital signs and Labs for Last 24 Hours: Temp Pulse Resp BP Pulse Ox 98.9 F 100 H 18 160/76 H 92 L 11/07/19 03:16 11/07/19 04:00 11/07/19 03:16 11/07/19 03:16 11/07/19 03:16 Laboratory Results - last 24 hr 11/06/19 19:00: WBC 10.6, RBC 4.59, Hgb 11.5 L, Hct 37.4, MCV 81.5, MCH 25.1 L, MCHC 30.8 L, RDW 16.1, Plt Count 295, MPV 7.9, Neut % (Auto) 76.9, Lymph % (Auto) 16
[2019-11-07 06:44] LABS: Basophils % 0.5 % (0.1-2.0); Eosinophils % 0.1 % (0.1-12.0); Hematocrit 32.8 % (37.0-47.0); Lymphocytes % 12.5 % (10-50); Mean Corpuscular HGB Conc 30.7 g/dL (31.8-35.4); Mean Corpuscular Volume 82.1 fl (81-99); Mean Platelet Volume 8.2 fl (7.4-10.4); Monocytes % 6.4 % (1.7-9.3); Neutrophils # 10.1 K/mm3 (1.8-7.8); Neutrophils % 80.5 % (37.0-80.0); Platelet Count 188 K/mm3 (142-424); White Blood Count 12.6 K/mm3 (4.8-10.8)
[2019-11-07 06:48] LABS: Hemoglobin 10.1 g/dL (12.2-16.2)
[2019-11-07 07:07] LABS: Glucose 438 mg/dl (74-100)
--- NOTE | 2019-11-07 07:24 | HMH.CONS ---
*Admission Date: 11/06/19 *Reason for consult:: Fever, tachycardia *History of present illness: 69-year-old female presented to the emergency department yesterday evening with concerns about drainage from around her Enmanuel-Mccullough drain sites located in the abdomen after having a recent cholecystectomy performed on November [address] Sims. This morning patient denies having any other concerns such as cough, fever, shortness of breath. She admits to urinary frequency but states that was present prior to her surgery. Nonetheless in the emergency department the Enmanuel-Mccullough drain sites look well but patient was found to have fever of 101.7 and was tachycardic. Labs were unremarkable except for nitrate positive urine and hyperglycemia.. CT scan of the abdomen and pelvis showed postoperative changes from recent cholecystectomy. Chest x-ray showed no infiltrates. Surgical service was contacted by the ER for admission and patient is been admitted for observation and further work-up of her postoperative fever. Past medical history is significant for hypertension and diabetes mellitus. Patient's last A1c was in September and recalls it was greater than 10. Review of systems is negative as above and also includes being negative for dysuria, urinary urgency, hematuria. Patient denies diarrhea both prior to and after surgery. She denies any rashes. [facility] History I have reviewed the patient's past medical history: Yes Medical History: Reports:: Anxiety, Diabetes Mellitus Type 2, Hypertension Denies:: Cancer, Diabetes Mellitus Type 1, Internal Pacemaker, MRSA, Seizures *Have you ever received a pneumonia vaccine?: Yes *Have you received a flu vaccine this season?: Yes Other Medical History: Reports: Thyroid Disease. Denies: Blood Transfusion Reaction Laterality Cases: Right: Breast Biopsy Other Surgeries: Yes: Colonoscopy, Tubal Ligation, Other. No: Pacemaker Amputation: No Fractures: No - *Social History Educational Level: Completed College Smoking Status: Former smoker Alcohol Intake: current Alcohol Intake Frequency:: holidays/special occasions only Substance Use Type: denies use *Occupational Status:: employed Housing: other Household Members: none *Travel in the last 8 weeks: None - Psychiatric History Pschychiatric History:: Reports:: Anxiety Family Hx:: Cancer, Diabetes, Hypertension, Thyroid Disorder, Mental illness Review of Systems - Review of Systems Review of systems:: pertinent systems reviewed and negative unless documented below - *Neurologic Reports weakness, Denies localized weakness, Denies headache(s), Denies seizure-like activity Meds Home Medications Medication Instructions Recorded Confirmed Type Levothyroxine Sodium 200 mcg PO DAILY 11/16/18 11/06/19 History [Levothyroxine 200mcg (0.2mg) Tab] Losartan Potassium 50 mg PO DAILY 11/16/18 11/06/19 History Metformin HCl [Metformin 1000mg 1,000 mg PO BID 11/16/18 11/06/19 History Tablets] Metoprolol Succinate 25 mg PO DAILY 11/16/18 11/06/19 History Montelukast Sodium [Montelukast 10 mg PO DAILY 11/16/18 11/06/19 History 10mg Tab] Simvastatin 20 mg PO DAILY 11/16/18 11/06/19 History glipiZIDE [Glucotrol] 5 mg PO DAILY 11/16/18 11/06/19 History lamoTRIgine [Lamotrigine] 200 mg PO DAILY 11/16/18 11/06/19 History Insulin Glargine,Hum.rec.anlog 15 unit SQ DAILY 11/02/19 11/06/19 History [Basaglar Kwikpen U-100] Hydrocod/Acet 5/325 mg [[place] 1 - 2 tab PO Q6HP PRN #23 tab 11/03/19 11/06/19 Rx 5/325mg tablet] Allergies Allergy/AdvReac Type Severity Reaction Status Date / Time No Known Allergies Allergy Verified 11/06/19 23:23 Exam Vital signs and Labs for Last 24 Hours: Temp Pulse Resp BP Pulse Ox 98.9 F 100 H 18 160/76 H 92 L 11/07/19 03:16 11/07/19 04:00 11/07/19 03:16 11/07/19 03:16 11/07/19 03:16 Laboratory Results - last 24 hr 11/06/19 19:00: WBC 10.6, RBC 4.59, Hgb 11.5 L, Hct 37.4, MCV 81.5, MCH 25.1 L, MCHC 30.8 L,
--- NOTE | 2019-11-07 07:27 | P.CONPHA_ITS ---
[facility] Pharmacy VTE Monitoring - Patient Demographics Admission date: 11/06/19 Report Date: 11/07/19 Time: 07:27 Allergies/Adverse Reactions: Patient Allergies No Known Allergies Allergy (Verified 11/06/19 23:23) Height: 1.7 m Weight: 71.441 kg Patient Problems: Current Active Problems Hypothyroidism (Acute) Postsurgical fever (Acute) SIRS (systemic inflammatory response syndrome) (Acute) Diabetes (Acute) - VTE Risk Labs: VTE Related Lab Results Hgb 10.1 g/dL (12.2-16.2) L D 11/07/19 06:14 Hct 32.8 % (37.0-47.0) L 11/07/19 06:14 Plt Count 188 K/mm3 (142-424) D 11/07/19 06:14 BUN 10 mg/dl (7-17) 11/07/19 06:14 Creatinine 0.70 mg/dl (0.52-1.04) 11/07/19 06:14 Estimated Creat Clear 58 mL/min (50-200) 11/07/19 06:14 Was VTE Risk Assessment Performed: Yes VTE Score: 2 VTE Risk Level: Very Low Risk Clinical Trial Participant: No - Prophylaxis VTE Prophylaxis Ordered?: Yes Types of VTE Prophylaxis: TEDS Knee High
--- NOTE | 2019-11-07 07:36 | HMH.PHAINT ---
HOME MEDICATION RECONCILIATION COMPLETED USING LIST FROM PT PHARMACY.
[2019-11-07 08:37] LABS: Hemoglobin A1C 10.1 % (4.0-6.0); Thyroid Stimulating Hormone 0.34 uIU/mL (0.465-4.68)
[2019-11-07 10:57] LABS: POC Glucose,Bedside 351 (70-110)
[2019-11-07 16:52] LABS: POC Glucose,Bedside 311 (70-110)
--- NOTE | 2019-11-07 16:56 | PC.NURSE ---
pt has done well this shift. she did report she knew when she had to use the bathroom but could not feel when she was going. md is aware. did c/o pain x1 this shift, prn med given with relief. [place] [facility] [place] remains on [place]. sats sitting around 90%. sinus tach noted on tele. 3 sites to abd post lapchole, dressings have dried drainage present. two CHRIS drains present and emptied. vss. will cont. to monitor.
[2019-11-07 22:25] LABS: POC Glucose,Bedside 293 (70-110)
[2019-11-08] VITALS (12 sets, daily range): BP systolic 101–142; BP diastolic 48–74; PULSE 70–100; RESP 16–18; TEMP 36.6–37.3; O2SAT 94–99; BMI 25.9
--- NOTE | 2019-11-08 04:40 | PC.NURSE ---
A&OX4. PT TOLERATING 1LNC T/O SHIFT. PT HAS C/O PAIN T/O ABD X1 THIS SHIFT, TREATED WITH PRN PAIN PER MAR. ON REASSESSMENT, PT RESTING IN BED. 2 CHRIS DRAINS PRESENT, DRAINING LIGHT YELLOW DRAINAGE. 3 INCISIONS PRESENT, DRESSINGS CDI. NO DRAINAGE PRESENT AROUND DRESSINGS. NO OTHER COMPLAINTS T/O THIS SHIFT, VSS WILL CONTINUE TO MONITOR.
[2019-11-08 05:41] LABS: POC Glucose,Bedside 261 (70-110)
--- NOTE | 2019-11-08 07:08 | CT_ITS ---
PROCEDURE: CT ANGIO CHEST CLINCIAL INDICATION: pleuritic chest pain, post op COMPARISON: CT ABDOMEN PELVIS W CON from 11/06/2019 TECHNIQUE: IV Contrast: 70ML OPTIRAY 350 Axial images obtained with sagittal and coronal reformats. All CT scans at the facility use one or more dose reduction, viz: automated exposure control, ma/kV adjustment per patient size (including targeted exams where dose is matched to indication, i.e. head), or iterative reconstruction technique. FINDINGS: HEART AND MEDIASTINAL STRUCTURES: No evidence of pulmonary embolus, aortic aneurysm, or aortic dissection. There is mild ectasia the ascending aorta at 4 cm. There is mild prominence of the main pulmonary artery with a pulmonary artery aorta ratio of 1. Coronary artery calcifications are noted. The LUNGS AND PLEURAL SPACES: Changes of COPD. The there is a small right pleural effusion mild right basilar atelectasis. There is some mild scarring in the lung apices with scattered subpleural opacities in the upper lobes nonspecific. No suspicious pulmonary nodules evident. Atelectasis or scarring is noted in the left upper lobe and lingula. Calcified granuloma is present in the right lower lobe. BONY STRUCTURES: No acute bony abnormalities apparent. UPPER ABDOMEN: There is a small amount of perihepatic fluid. There is mild prominence of the left lobe of the liver . ADDITIONAL FINDINGS: Scattered small nodes are present in the axilla IMPRESSION: 1. No evidence of pulmonary embolus. 2. Mild prominence of the ascending aorta at 4 cm.. Mild prominence of the main pulmonary artery which may be seen with pulmonary arterial hypertension. 3. COPD with scattered areas of scarring Dictated by: Kevin Quinteros MD 11/08/2019 15:52 Electronically signed by Kevin Quinteros MD in [place] 11/08/2019 15:52
--- NOTE | 2019-11-08 07:08 | HMH.ACPN2 ---
Internal Medicine - PN: Subj *Date: 11/08/19 *Time: 07:09 Interval history: Patient complains of pain in the right shoulder area this morning. The pain is similar in quality to the pain in her right upper quadrant. This pain also is reproducible with deep breathing. This pain is developed over the last 24 hours. She has not had any fever since yesterday morning. She denies cough. She is having some urinary difficulties and that the patient is unable to recognize when she is urinating. Exam Vital signs and Labs for Last 24 Hours: Temp Pulse Resp BP Pulse Ox 99.1 F 90 16 142/64 H 95 11/08/19 03:45 11/08/19 04:00 11/08/19 03:45 11/08/19 03:45 11/08/19 03:45 Laboratory Results - last 24 hr 11/07/19 06:14: Hemoglobin A1c 10.1 H 11/07/19 06:14: TSH 0.34 L 11/07/19 10:48: POC Glucose 351 H* 11/07/19 16:34: POC Glucose 311 H* 11/07/19 20:38: POC Glucose 293 H 11/08/19 05:34: POC Glucose 261 H I & O for Last 24 hours: Intake & Output 11/05/19 11/06/19 11/07/19 11/08/19 11:59 11:59 11:59 11:59 Intake Total 894 / 894 2686 / 2686 Output Total 555 / 555 538 / 538 Balance 339 / 339 2148 / 2148 Weight 157 lb 8 oz 165 lb 7 oz Microbiology Reports for the Last 24 Hours: Microbiology 11/06/19 19:03 Urine,Clean Catch Urine Culture - Preliminary Narrative: Patient looks comfortable. Lungs remain clear. Heart rate is slightly tachycardic. Abdomen is soft with right upper quadrant tenderness to palpation. Bowel sounds are present. 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 insulin use: unspecified chcf insulin use status Diabetes mellitus complication status: with hyperglycemia Qualified Code(s): E11.65 - Type 2 diabetes mellitus with hyperglycemia Category: Medical Code(s): E11.9 - Type 2 diabetes mellitus without complications (4) Hypothyroidism Current visit: Yes Status: Acute Qualifiers: Hypothyroidism type: acquired Qualified Code(s): E03.9 - Hypothyroidism, unspecified Category: Medical Code(s): E03.9 - Hypothyroidism, unspecified (5) Anemia Current visit: No Status: Chronic Qualifiers: Anemia type: unspecified type Qualified Code(s): D64.9 - Anemia, unspecified Category: Medical Code(s): D64.9 - Anemia, unspecified - Assessment and plan all Dx Assessment and Plan for all problems:: 1. CT scan of the chest today to rule out pulmonary embolism due to pleuritic pain patient is experiencing as well as her postoperative status 2. Continue antibiotics while awaiting cultures 3. Patient's basal insulin will be increased 4. Levothyroxine will be decreased 5. At times patient has mild sinus tachycardia. This was present prior to patient's surgery as well. Her beta-khari will be increased to twice daily.
[2019-11-08 07:09] LABS: Chloride 101 mmol/L (98-107)
[2019-11-08 07:10] LABS: Sodium 135 mmol/L (136-145)
[2019-11-08 07:12] LABS: Basophils % 0.4 % (0.1-2.0); Eosinophils % 0.1 % (0.1-12.0); Hematocrit 30.3 % (37.0-47.0); Hemoglobin 9.4 g/dL (12.2-16.2); Lymphocytes # 2.1 K/mm3 (0.7-4.5); Mean Corpuscular HGB Conc 30.9 g/dL (31.8-35.4); Mean Corpuscular Hemoglobin 24.9 pg (27.0-31.2); Mean Corpuscular Volume 80.5 fl (81-99); Monocytes # 0.6 K/mm3 (0.1-1.0); Neutrophils # 8.8 K/mm3 (1.8-7.8); Neutrophils % 76.5 % (37.0-80.0); Platelet Count 203 K/mm3 (142-424); Red Blood Count 3.77 M/mm3 (4.20-5.40); Red Cell Distribution Width 16.5 % (11.5-17.5); White Blood Count 11.5 K/mm3 (4.8-10.8)
[2019-11-08 07:13] LABS: Anion Gap 9.7 mEq/L (5-15); Blood Urea Nitrogen 19 mg/dl (7-17); Calcium 7.8 mg/dl (8.4-10.2); Carbon Dioxide 27 mmol/L (22.0-30.0); Creatinine Clearance Estimated 61 mL/min (50-200); Estimated Glomerular Filt Rate 71 ml/min (>60); GFR (African American) 86 ML/MIN (>60); Glucose 248 mg/dl (74-100)
[2019-11-08 07:26] LABS: Potassium 2.7 mmoL/L (3.5-5.1)
--- NOTE | 2019-11-08 08:10 | HMH.GSPN ---
Subjective Narrative: Pain radiating to the right shoulder Exam Vital signs and Labs for Last 24 Hours: Temp Pulse Resp BP Pulse Ox 98.8 F 96 H 18 119/54 L 95 11/08/19 08:00 11/08/19 08:00 11/08/19 08:00 11/08/19 08:00 11/08/19 08:00 Laboratory Results - last 24 hr 11/07/19 06:14: Hemoglobin A1c 10.1 H 11/07/19 06:14: TSH 0.34 L 11/07/19 10:48: POC Glucose 351 H* 11/07/19 16:34: POC Glucose 311 H* 11/07/19 20:38: POC Glucose 293 H 11/08/19 05:34: POC Glucose 261 H 11/08/19 06:33: WBC 11.5 H, RBC 3.77 L, Hgb 9.4 L, Hct 30.3 L, MCV 80.5 L, MCH 24.9 L, MCHC 30.9 L, RDW 16.5, Plt Count 203, MPV 8.0, Neut % (Auto) 76.5, Lymph % (Auto) 18.0, [place] % (Auto) 5.0, Eos % (Auto) 0.1, Baso % (Auto) 0.4, Neut # (Auto) 8.8 H, Lymph # (Auto) 2.1, [place] # (Auto) 0.6, Eos # (Auto) 0.0, Baso # (Auto) 0.0 11/08/19 06:33: Sodium 135 L, Potassium 2.7 L* D, Chloride 101, Carbon Dioxide 27, Anion Gap 9.7, BUN 19 H D, Creatinine 0.80, Estimated Creat Clear 61, Estimated GFR 71, Est GFR ( Amer) 86, Glucose 248 H, Calcium 7.8 L I & O for Last 24 hours: Intake & Output 11/05/19 11/06/19 11/07/19 11/08/19 11:59 11:59 11:59 11:59 Intake Total 894 / 894 2686 / 2686 Output Total 555 / 555 538 / 538 Balance 339 / 339 2148 / 2148 Weight 157 lb 8 oz 165 lb 7 oz Microbiology Reports for the Last 24 Hours: Microbiology 11/06/19 19:03 Urine,Clean Catch Urine Culture - Preliminary Gram Negative Rods - Constitutional no acute distress - *Routine Respiratory Exam Absent: respiratory distress - *Routine Cardiovascular Exam Present: RRR - *Routine Abdominal Exam Present: soft Comments: CHRIS drains in place. No obvious bilious drainage. Incisions are without erythema. Progress Note: A&P (1) Postsurgical fever Status: Acute Assessment and plan: Currently improved. Possibly secondary to systemic reaction postoperatively/cholecystitis. Possibly secondary to perioperative urinary tract infection. Continue antibiotics for now Current Visit: Yes (2) SIRS (systemic inflammatory response syndrome) Status: Acute Current Visit: Yes (3) Diabetes Status: Acute Current Visit: Yes (4) Hypothyroidism Status: Acute Current Visit: Yes (5) Anemia Status: Chronic Current Visit: No (6) Right shoulder pain Status: Acute Assessment and plan: Toradol has been started for possible post-cholecystectomy inflammatory change/ air pocket Current Visit: Yes (7) Right-sided chest pain Status: Acute Assessment and plan: CT of chest (PE protocol) pending as per PCP Current Visit: Yes (8) Hypokalemia Status: Acute Assessment and plan: Replacement ordered (IV replacement ordered as she is currently n.p.o. for chest CT) Current Visit: Yes
--- NOTE | 2019-11-08 11:16 | SW/DCPLANNER ---
PATIENT ADMITTED TO [facility] WITH CHRONIC CALCULUS CHOLECYSTITIS ASSOCIATED WITH NAUSEA, OCCASIONAL VOMITING AND ABDOMINAL PAIN....SHE RESIDES AT HOME AND IS GOING TO HAVE A CT SCAN TO FURTHER INVESTIGATE WHY SHE IS STILL HAVING PAIN... DISPOSITION COULD BE SOON IN THE AM PENDING NO OTHER TESTING IS NECESSARY.. AT THIS TIME THERE ARE NO ORDERS FOR ANY HOME CARE NEEDED..
[2019-11-08 12:01] LABS: POC Glucose,Bedside 244 (70-110)
--- NOTE | 2019-11-08 15:24 | PC.NURSE ---
Pt has been pleasant and cooperative this shift. A&O X4. No complaints of pain or SOA. 3 surgical abdominal dressings c/d/i. 1 CHRIS drain noted to the RT abdomen draining large amounts of yellow, cloudy drainage (30 ML thus far this shift). 1 CHRIS drain noted to RT medial abdomen draining minimal amounts of blood. Pt refused Prozac this AM and states that she is no longer taking that medication. Pt is receiving O2 via NC @ 1 LPM with sats >94%. FSBS result @ 1130 was 244 and required 4 units of insulin per MAR. Pt ambulates with a stand-by assist to the BSC and back to bed. Urine noted to be clear and yellow. Bilateral CYN hose in place to the lower extremities with non-skid socks on top. New 20 G peripheral IV inserted to the RT AC due to chest CTA is patent and SL. 20 G peripheral IV remains in place to the LT forearm patent and SL. IVF DC'd this shift. Shower and total linen change performed. Lungs CTA. VSS. Call light within reach. Will continue to monitor.
[2019-11-08 16:47] LABS: POC Glucose,Bedside 108 (70-110)
--- NOTE | 2019-11-08 19:08 | PC.NURSE ---
report given to suha
[2019-11-08 21:21] LABS: POC Glucose,Bedside 354 (70-110)
[2019-11-09] VITALS: PULSE 70
--- NOTE | 2019-11-09 02:26 | PC.NURSE ---
Pt's room air sat at rest = 94%.
[2019-11-09 03:41] VITALS: BP 137/72; PULSE 77; RESP 18; TEMP 36.7; O2SAT 97
[2019-11-09 04:00] VITALS: PULSE 70
[2019-11-09 05:00] VITALS: BMI 25.9
--- NOTE | 2019-11-09 06:26 | PC.NURSE ---
Pt did well overnight. No complaints reported to staff. Abdomen slightly tender upon palpitation. Drsg's remain C/D/I. CHRIS drain #1 w/ scant amount of drainage. CHRIS #2 w/ 50cc of slightly cloudy, watery, yellowish drainage. Pt using BSC independently w/ some degree of urge incontinence noted. VSS. Will continue to monitor.
--- NOTE | 2019-11-09 06:34 | HMH.GSPN ---
Subjective Patient reports: no new complaints, feels better Exam Vital signs and Labs for Last 24 Hours: Temp Pulse Resp BP Pulse Ox 98.1 F 77 18 137/72 97 11/09/19 03:41 11/09/19 03:41 11/09/19 03:41 11/09/19 03:41 11/09/19 03:41 Laboratory Results - last 24 hr 11/08/19 06:33: WBC 11.5 H, RBC 3.77 L, Hgb 9.4 L, Hct 30.3 L, MCV 80.5 L, MCH 24.9 L, MCHC 30.9 L, RDW 16.5, Plt Count 203, MPV 8.0, Neut % (Auto) 76.5, Lymph % (Auto) 18.0, [place] % (Auto) 5.0, Eos % (Auto) 0.1, Baso % (Auto) 0.4, Neut # (Auto) 8.8 H, Lymph # (Auto) 2.1, [place] # (Auto) 0.6, Eos # (Auto) 0.0, Baso # (Auto) 0.0 11/08/19 06:33: Sodium 135 L, Potassium 2.7 L* D, Chloride 101, Carbon Dioxide 27, Anion Gap 9.7, BUN 19 H D, Creatinine 0.80, Estimated Creat Clear 61, Estimated GFR 71, Est GFR ( Amer) 86, Glucose 248 H, Calcium 7.8 L 11/08/19 11:29: POC Glucose 244 H 11/08/19 16:23: POC Glucose 108 11/08/19 21:11: POC Glucose 354 H* I & O for Last 24 hours: Intake & Output 11/06/19 11/07/19 11/08/19 11/09/19 11:59 11:59 11:59 11:59 Intake Total 994 / 994 2686 / 2686 1625 / 1625 Output Total 555 / 555 668 / 668 705 / 705 Balance 439 / 439 2017 920 / 920 Weight 157 lb 8 oz 165 lb 7 oz 165 lb 2 oz Microbiology Reports for the Last 24 Hours: Microbiology 11/06/19 19:00 Blood Blood Culture - Preliminary NO GROWTH AFTER 48 HOURS 11/06/19 19:00 Blood Blood Culture - Preliminary NO GROWTH AFTER 48 HOURS 11/06/19 19:03 Urine,Clean Catch Urine Culture - Preliminary Gram Negative Rods - Constitutional no acute distress - *Routine Respiratory Exam Absent: respiratory distress - *Routine Cardiovascular Exam Present: RRR - *Routine Abdominal Exam Present: soft Progress Note: A&P (1) Postsurgical fever Status: Resolved Current Visit: Yes (2) SIRS (systemic inflammatory response syndrome) Status: Acute Assessment and plan: overall, improving OK from surgical standpoint for d/c home with outpatient follow-up Current Visit: Yes (3) Diabetes Status: Acute Current Visit: Yes (4) Hypothyroidism Status: Acute Current Visit: Yes (5) Anemia Status: Chronic Current Visit: No (6) Right shoulder pain Status: Acute Current Visit: Yes (7) Right-sided chest pain Status: Acute Assessment and plan: improved Current Visit: Yes (8) Hypokalemia Status: Acute Assessment and plan: f/u AM labs Current Visit: Yes
[2019-11-09 06:42] LABS: Basophils % 0.3 % (0.1-2.0); Eosinophils % 0.2 % (0.1-12.0); Hemoglobin 9.2 g/dL (12.2-16.2); Lymphocytes # 1.8 K/mm3 (0.7-4.5); Lymphocytes % 20.2 % (10-50); Mean Corpuscular HGB Conc 30.8 g/dL (31.8-35.4); Mean Corpuscular Volume 81.1 fl (81-99); Monocytes # 0.6 K/mm3 (0.1-1.0); Monocytes % 6.9 % (1.7-9.3); Neutrophils # 6.4 K/mm3 (1.8-7.8); Neutrophils % 72.5 % (37.0-80.0); Platelet Count 218 K/mm3 (142-424); Red Blood Count 3.69 M/mm3 (4.20-5.40); Red Cell Distribution Width 16.5 % (11.5-17.5); White Blood Count 8.9 K/mm3 (4.8-10.8)
[2019-11-09 06:44] LABS: Chloride 105 mmol/L (98-107); Sodium 137 mmol/L (136-145)
[2019-11-09 06:45] LABS: Potassium 3.4 mmoL/L (3.5-5.1)
[2019-11-09 06:47] LABS: Blood Urea Nitrogen 20 mg/dl (7-17); Creatinine Clearance Estimated 61 mL/min (50-200); Estimated Glomerular Filt Rate 71 ml/min (>60); GFR (African American) 86 ML/MIN (>60)
[2019-11-09 06:48] LABS: Anion Gap 10.4 mEq/L (5-15); Carbon Dioxide 25 mmol/L (22.0-30.0); Glucose 158 mg/dl (74-100)
[2019-11-09 07:14] LABS: POC Glucose,Bedside 162 (70-110)
--- NOTE | 2019-11-09 07:28 | HMH.DCSUM ---
General - General Admission date:: 11/08/19 Discharge date: 11/09/19 HPI HPI: Patient is a 69-year-old female from [facility] under the care of Radha Tapia who had symptoms consistent with chronic calculus cholecystitis for several months characterized by some abdominal pain with nausea and occasional vomiting. She had a CT scan which revealed gallstones which was confirmed by ultrasound. She had seen Dr. Sims in the office and scheduled for cholecystectomy which was performed on 11/02/19. She underwent laparoscopic cholecystectomy and was found to have Severe chronic inflammatory changes, Severe pericholecystic fat stranding, Severe gallbladder wall thickening, Multiple large stones, Fairly enlarged liver . She did have a couple of Enmanuel-Mccullough drains placed. She was able to be discharged and managed as an outpatient. She presented to the emergency department late last night mainly with concerns for drainage around the drain sites. However, she was noted to have appreciable tachycardia and fever of 101.7 Fahrenheit. She was found to have markedly elevated glucose. Her CBC, liver function tests, lactate were within reasonable limits. Drain output is serous and nonbilious and nonpurulent. CT scan preliminarily reveals only expected postoperative changes. Arrangements were made for admission for inpatient management. Hospital Course Hospital Course: Patient was admitted and started on Zosyn. She was initially admitted to the surgical service due to her recent laparoscopic cholecystectomy. Patient had some mild tenderness in the right upper quadrant consistent with recent surgery. There were no signs of infection coming from or around her surgical site and CHRIS drains. Patient had fevers for the first 24 hours of hospitalization. Urine was abnormal on admission. Levaquin was added to the patient's antibiotic regimen. Patient was continued on IV fluids for the first 36 hours of admission. Ultimately blood cultures returned negative and urine culture grew Citrobacter that was sensitive to multiple antibiotics. At discharge patient will be placed on additional 5 days of levofloxacin 250 mg p.o. daily. Patient did complain of some right periscapular and shoulder pain worse with deep inspiration on the morning of November 07. CT angiogram of the chest was performed to rule out pulmonary embolism. There was no sign of pulmonary embolism. Patient's pain was treated with IV Toradol. Patient had mild hypokalemia develop and was corrected with oral potassium replacement. Patient has diabetes that is not controlled. A1c in the hospital was 10. I increased her insulin dosing during hospitalization and she will continue 25 units of her Basaglar at night. Continue metformin and sulfonylurea at this time and follow-up with PCP regarding her hyperglycemia. Patient has hypothyroidism. TSH was suppressed and her levothyroxine was reduced from 200 mcg daily to 175. Objective Vital signs: Temp Pulse Resp BP Pulse Ox 98.1 F 70 18 137/72 97 11/09/19 03:41 11/09/19 04:00 11/09/19 03:41 11/09/19 03:41 11/09/19 03:41 no acute distress - *Routine Respiratory Exam Present: CTA bilaterally - *Routine Cardiovascular Exam Present: RRR - *Routine Abdominal Exam Present: soft, normoactive bowel sounds Results Labs on day of discharge: Labs from last 24 hours 11/09/19 11/09/19 11/09/19 06:18 06:18 06:17 WBC 8.9 RBC 3.69 L Hgb 9.2 L Hct 30.0 L MCV 81.1 MCH 25.0 L MCHC 30.8 L RDW 16.5 Plt Count 218 MPV 8.0 Neut % (Auto) 72.5 Lymph % (Auto) 20.2 [place] % (Auto) 6.9 Eos % (Auto) 0.2 Baso % (Auto) 0.3 Neut # (Auto) 6.4 Lymph # (Auto) 1.8 [place] # (Auto) 0.6 Eos # (Auto) 0.0 Baso # (Auto) 0.0 Sodium 137 Potassium 3.4 L D Chloride 105 Carbon Dioxide 25 Anion Gap 10.4 BUN 20 H Creatinine 0.80 Estimated Creat Michael
[2019-11-09 07:30] VITALS: PULSE 85; RESP 18; O2SAT 96
[2019-11-09 07:58] VITALS: BP 135/64; PULSE 85; RESP 18; TEMP 37.1; O2SAT 96
--- NOTE | 2019-11-09 10:58 | HMH.PHAINT ---
DISCHARGE COUNSELING COMPLETED ON PATIENT. NEW PRESCRIPTIONS FOR LEVOFLOXACIN AND LEVOTHYROXINE (DOSE DECREASE FROM 200MCG TO 175MCG). THESE PRESCRIPTIONS WERE SENT TO [facility] IN [place]. PATIENT'S INSULIN GLARGINE DOSE ALSO CHANGED FROM 15 UNITS DAILY TO 25 UNITS DAILY. PATIENT IS TO CONTINUE ALL OTHER HOME MEDICATIONS. PATIENT VERBALIZED UNDERSTANDING AND HAD NO QUESTIONS AT THIS TIME. -VIVEK HENDRICKS, RAMONAD
== END 2019-11-09 11:08 | disposition home or self-care (01) | DRG 641 ==
LOC: ER 21:30 → 2ND 22:20
PROVIDERS: Surgery; Admitting Provider Surgery; Emergency Provider Emergency Medicine; PCP Family Medicine; Visit Provider Family Medicine
DX: R65.10 Systemic inflammatory response syndrome (SIRS) of non-infectious origin without acute organ dysfunction (principal); E87.6 Hypokalemia; N39.0 Urinary tract infection, site not specified; R50.82 Postprocedural fever; D64.9 Anemia, unspecified; E11.65 Type 2 diabetes mellitus with hyperglycemia; Z79.4 Long term (current) use of insulin
CPT/HCPCS: 36415; 71045; 71275; 74177; 80048; 80053; 81001; 82962; 83036; 83605; 84443; 84484; 85025; 85651; 86140; 87040; 87086; 87088; 87186; 93005; 94761; 96365; 96367; 96375; 99285; G0378; J1956; J2405; J2543; Q9967

== ENCOUNTER → 2020-06-08 11:38 | Outpatient (CLI) | payer MEDICARE, OTHER, SELFPAY ==
[2020-06-08 12:56] LABS: Coronavirus 19 IgG Antibody Negative (Negative); Coronavirus 19 IgM Antibody Negative (Negative)
== END ==
PROVIDERS: Visit Provider Internal Medicine Gastroenterology
DX: Z01.812 Encounter for preprocedural laboratory examination (principal)
CPT/HCPCS: 36415; 86328

== ENCOUNTER 2020-06-10 08:54 | Day surgery (SDC) | payer MEDICARE, OTHER, SELFPAY ==
[2020-06-04 10:08] VITALS: BMI 25.8
[2020-06-10 09:12] VITALS: BP 191/75; PULSE 85; RESP 18; TEMP 36.2; O2SAT 96
[2020-06-10 09:26] LABS: POC Glucose,Bedside 177 (70-110)
--- NOTE | 2020-06-10 09:44 | HMH.PROC ---
[facility] Procedure Note Procedure Note:: Colonoscopy Procedure Report: Colonoscopy with cold snare polypectomy and cold biopsies Endoscopist: Jeremie Solorio II, MD Referring physician: RAFAEL Deleon Date of Procedure: June 10, 2020 Equipment: Olympus 180 variable stiffness pediatric colonoscope Sedation: MAC sedation Indication: Mrs. Hidalgo is a 70-year-old female who is here for diagnostic colonoscopy secondary to a positive Cologuard test. The patient does report longstanding postprandial diarrhea which is loose or watery. She did have cholecystectomy in October 2019 and this did not change her diarrhea. Over the last couple of months, she has had some mild lower abdominal discomfort. She reports no rectal bleeding, weight loss or family history of colon cancer. She reports no gassiness or bloating. This is her first colonoscopy. Procedure: Prior to the procedure, a history and physical exam was performed, and patient's medications and allergies were reviewed. The risks, benefits and alternatives of the sedation and procedure were discussed with the patient. All questions were answered and informed consent was obtained. The patient was brought to the procedure room. Patient identification and proposed procedure were verified by the physician and the nurse. The patient was placed in a left lateral decubitus position and the scope was passed under direct vision. Throughout the procedure, the patient's blood pressure, pulse, and oxygen saturations were monitored continuously. The colonoscopy was accomplished without difficulty. The patient tolerated the procedure well. Findings: On digital rectal examination there was normal rectal tone. There were no external hemorrhoids. The colonoscope was introduced through the anal canal to the rectum and advanced to the cecum. The ileocecal valve and appendiceal orifice were identified. The scope was advanced a short distance into the ileum which appeared grossly normal. The scope was then withdrawn into the colon. There were a total of 5 colon polyps. There were 3 polyps in the cecum (3 and 6 mm polyps placed in cecal jar #1 and a larger flat 25 mm cecal polyp along the fold of the ileocecal valve removed in piecemeal snare polypectomy) and these were removed via cold snare polypectomy. There were 2 additional polyps (descending x1 (4 mm) and sigmoid x1 (3 mm) which were removed via cold snare polypectomy. Cold biopsies were taken from the right colon to rule out microscopic colitis. There were scattered diverticuli throughout the descending and sigmoid colon (LEFT colon). The rectum itself was normal. Upon retroflexion within the rectum there were grade 1-2 internal hemorrhoids. The preparation was excellent throughout with [place] Preparation Score of 9. The cecal time was 14 minutes. Impression: 1. Large cecal colon polyp (25 mm) 2. 4 additional diminutive colon polyps 3. Left-sided diverticulosis 4. Grade 1-2 internal hemorrhoids Plan: Based upon the size and adenomatous nature of the larger cecal polyp, I would recommend repeat surveillance colonoscopy in 6 to 12 months to ensure that there is no residual or recurrent advanced adenomatous polyp. I will discuss this with the patient and family. I will follow-up the biopsies to rule out microscopic (collagenous or lymphocytic) colitis. If these are normal, I would recommend Colestid plus bulk fiber. I would also consider Levsin/hyoscyamine.
--- NOTE | 2020-06-10 09:45 | P.PN_ITS ---
[facility] Anesthesia Checklist - Patient Identification Patient Identification: Arm Band - Structural Data Admitted From: Home Planned Operative Procedure/s: colonoscopy Consent for Planned Operative Procedure(s) Verified: Yes Verified Documents: Surgical Consent, History and Physical - NPO Status Verified Time NPO: 00:00 - Additional verifications Anesthesia Reactions: No Hx Blood Transfusions: Yes Blood Transfusion Reaction: No - Airway Assessment C-Spine Mobility Assessed: Yes (mp2) TMJ Mobility Assessed: Yes Dentition: Dentures-good fit - Neurological Assessment Level of Consciousness: Awake, Alert - Anesthesia Plan Anesthesia Risk discussed: Yes Anesthesia Plan: Verified ASA Class: III Anesthesia Type: MAC [facility] History I have reviewed the patient's past medical history: Yes Medical History: Reports:: Anxiety, Diabetes Mellitus Type 2, Hyperlipidemia, Hypertension Denies:: Cancer, Diabetes Mellitus Type 1, Internal Pacemaker, MRSA, Seizures *Have you ever received a pneumonia vaccine?: Yes *Have you received a flu vaccine this season?: No Other Medical History: Reports: Thyroid Disease. Denies: Blood Transfusion Reaction Anesthesia experience/problems:: nac Laterality Cases: Right: Breast Biopsy Other Surgeries: Yes: Cholecystectomy, Colonoscopy, Tubal Ligation, Other. No: Pacemaker Amputation: No Fractures: No - *Social History Last grade of school completed: Some college Smoking Status: Former smoker Alcohol Intake: current Alcohol Intake Frequency:: holidays/special occasions only Substance Use Type: denies use *Occupational Status:: employed Housing: other Household Members: none *Travel in the last 8 weeks: None - Psychiatric History Pschychiatric History:: Reports:: Anxiety Family Hx:: Cancer, Diabetes, Hypertension, Thyroid Disorder, Mental illness
[2020-06-10 09:48] VITALS: O2SAT 97
[2020-06-10 10:10] VITALS: BP 108/56; PULSE 81; RESP 12; TEMP 36.6; O2SAT 91
[2020-06-10 10:20] VITALS: BP 123/54; PULSE 77; RESP 12; O2SAT 94
[2020-06-10 10:30] VITALS: BP 182/85; PULSE 78; RESP 16; O2SAT 97
[2020-06-10 10:40] VITALS: BP 182/84; PULSE 78; RESP 16; TEMP 36.6; O2SAT 98
== END 2020-06-10 10:43 | disposition home or self-care (01) ==
LOC: OUTP 08:56
PROVIDERS: PCP Family Medicine; Visit Provider Internal Medicine Gastroenterology
PROC: 0DJD8ZZ Inspection of Lower Intestinal Tract, Via Natural or Artificial Opening Endoscopic (ICD-10-PCS; CPT 45378; principal; 2020-06-10 10:00)
DX: R19.5 Other fecal abnormalities (principal); D12.0 Benign neoplasm of cecum; D12.4 Benign neoplasm of descending colon; D12.5 Benign neoplasm of sigmoid colon; R19.7 Diarrhea, unspecified; K64.1 Second degree hemorrhoids; K57.30 Diverticulosis of large intestine without perforation or abscess without bleeding; I10 Essential (primary) hypertension; E78.5 Hyperlipidemia, unspecified; J45.909 Unspecified asthma, uncomplicated; F31.9 Bipolar disorder, unspecified; E11.9 Type 2 diabetes mellitus without complications; E03.9 Hypothyroidism, unspecified; Z83.3 Family history of diabetes mellitus; Z90.49 Acquired absence of other specified parts of digestive tract; Z87.891 Personal history of nicotine dependence; Z79.890 Hormone replacement therapy; Z79.4 Long term (current) use of insulin; Z79.899 Other long term (current) drug therapy
CPT/HCPCS: 45380; 45385; 82962; 88305

== ENCOUNTER → 2020-07-31 10:31 | Outpatient (CLI) | payer MEDICARE, OTHER, SELFPAY ==
[2020-07-31 10:45] VITALS: BP 143/107; PULSE 74; RESP 18; TEMP 36.4; O2SAT 97
[2020-07-31 11:33] VITALS: BP 193/85; PULSE 75; RESP 18
--- NOTE | 2020-07-31 11:33 | PC.NURSE ---
1133-pt states she feels fine; takes her bp meds at night and will talk to .
== END ==
PROVIDERS: Visit Provider Nurse Practitioner Family
DX: D50.9 Iron deficiency anemia, unspecified (principal)
CPT/HCPCS: 96365; J1439

== ENCOUNTER 2020-08-07 10:22 | Outpatient (CLI) | payer MEDICARE, OTHER, SELFPAY ==
[2020-08-07 10:44] VITALS: BP 167/77; PULSE 98; RESP 18; TEMP 36.2; O2SAT 98
[2020-08-07 11:14] VITALS: BP 173/78; PULSE 100; RESP 18; O2SAT 99
[2020-08-07 11:25] VITALS: BP 169/74; PULSE 95; RESP 18; O2SAT 98
== END 2020-08-07 11:25 | disposition home or self-care (01) ==
LOC: INF 10:22
PROVIDERS: Visit Provider Nurse Practitioner Family
DX: D50.9 Iron deficiency anemia, unspecified (principal)
CPT/HCPCS: 96365; J1439

== ENCOUNTER → 2020-10-16 13:36 | Outpatient (CLI) | payer MEDICARE, OTHER, SELFPAY ==
--- NOTE | 2020-10-16 13:39 | CT_ITS ---
PROCEDURE: CT ANGIO CHEST CLINCIAL INDICATION: THORACIC AORTIC ANEURYSM W/O RUPTURE COMPARISON: CT CT ANGIO CHEST from 11/08/2019 TECHNIQUE: IV Contrast: 70ML Isovue 370 Axial images obtained with sagittal and coronal reformats. All CT scans at the facility use one or more dose reduction, viz: automated exposure control, ma/kV adjustment per patient size (including targeted exams where dose is matched to indication, i.e. head), or iterative reconstruction technique. FINDINGS: HEART AND MEDIASTINAL STRUCTURES: Aneurysmal ascending thoracic aorta is noted measuring 4.1 centimeters in anteroposterior diameter. The descending thoracic aorta is normal in caliber. Atherosclerotic vascular calcification is noted at the arch. Prominence of the pulmonary trunk is noted measuring 3.8 centimeters. The right main pulmonary artery is mildly enlarged measuring 2.6 centimeters. The coronary arteries are unremarkable. The heart size is normal. Atherosclerotic vascular calcification of the thoracic aorta and coronary arteries LUNGS AND PLEURAL SPACES: No focal consolidation, pleural effusions or pneumothorax. Minor tree-in-bud appearance is noted in the lingula, may represent minor infection/inflammation. No suspicious lung nodules are noted. Calcified granuloma in the right lower lobe. The central tracheobronchial tree is patent. No suspicious lung nodules are noted. BONY STRUCTURES: Multilevel degenerative changes of the thoracic spine are noted. UPPER ABDOMEN: The visualized upper abdominal solid organs are unremarkable allowing for the phase of IV contrast. Small to moderate hiatus hernia is noted. ADDITIONAL FINDINGS: No other significant abnormalities. IMPRESSION: Aneurysmal ascending thoracic aorta is noted measuring 4.1 centimeters. Enlarged pulmonary trunk and right main pulmonary artery. No other acute intrathoracic abnormality. Dictated by: Jessie Houston 10/16/2020 16:11 Jessie Houston in [facility] 10/16/2020 16:11
--- NOTE | 2020-10-16 13:40 | MM_ITS ---
PROCEDURE: MM DIG SCREENING MAMM BI W/CAD Digital Breast Tomosynthesis Included CLINICAL INDICATION: SCREENING COMPARISON: MG MM DIG SCREENING MAMM BI W/CAD from 10/11/2019 TECHNIQUE: Standard CC and MLO images and 3D Tomosynthesis was obtained. R2 CAD reviewed. FINDINGS: The breasts are heterogeneously dense, may obscure small masses. No dominant mass lesion, suspicious calcification or architectural distortion. Biopsy marker noted in the right lower central breast. Bilateral benign appearing calcifications. Bilateral axillary normal morphology lymph nodes are partially visualized. IMPRESSION: No dominant lesions or suspicious findings. BI-RAD Category: 2 Benign Finding(s) FOLLOW-UP: 1YR 1 Year Follow-up (A letter has been sent to the patient regarding results of the study.) Dictated by: Jessie Houston 10/18/2020 08:56 Jessie Houston in [facility] 10/18/2020 08:56
== END ==
PROVIDERS: PCP Surgery; Visit Provider Nurse Practitioner Family
DX: Z12.31 Encounter for screening mammogram for malignant neoplasm of breast (principal); I71.2 Thoracic aortic aneurysm, without rupture
CPT/HCPCS: 71275; 77063; 77067; Q9967

== ENCOUNTER → 2020-12-31 07:40 | Outpatient (CLI) | payer MEDICARE, OTHER, SELFPAY ==
[2020-12-31] VITALS (7 sets, daily range): BP systolic 158–168; BP diastolic 64–72; PULSE 61–67; RESP 14–19; TEMP 36.8–36.9; O2SAT 97–98
== END ==
PROVIDERS: PCP Nurse Practitioner Family; Visit Provider Nurse Practitioner Family
DX: U07.1 COVID-19 (principal)
CPT/HCPCS: 96365

== ENCOUNTER 2021-02-28 08:55 | Day surgery (SDC) | payer MEDICARE, OTHER, SELFPAY ==
[2021-02-26 10:32] VITALS: BMI 26.3
[2021-02-28 10:11] VITALS: BP 172/75; PULSE 72; RESP 18; TEMP 36.6; O2SAT 94
[2021-02-28 10:32] LABS: POC Glucose,Bedside 98 (70-110)
[2021-02-28 11:06] VITALS: O2SAT 98
--- NOTE | 2021-02-28 11:06 | HMH.ANESCL ---
[facility] Anesthesia Checklist - Patient Identification Patient Identification: Arm Band - Structural Data Admitted From: Home Planned Operative Procedure/s: Colonoscopy Consent for Planned Operative Procedure(s) Verified: Yes - NPO Status Verified Time NPO: 00:00 - Additional verifications Anesthesia Reactions: No Hx Blood Transfusions: Yes Blood Transfusion Reaction: No - Airway Assessment C-Spine Mobility Assessed: Yes TMJ Mobility Assessed: Yes Dentition: Edentulous - Neurological Assessment Level of Consciousness: Awake Hx Seizures: No Numbness or tingling in extremities: No - Anesthesia Plan Anesthesia Risk discussed: Yes Anesthesia Plan: Verified ASA Class: III Anesthesia Type: MAC [facility] History I have reviewed the patient's past medical history: Yes Medical History: Reports:: Anxiety, Diabetes Mellitus Type 2, Heart Murmur, Hyperlipidemia, Hypertension Denies:: Cancer, Diabetes Mellitus Type 1, Internal Pacemaker, MRSA, Seizures *Have you ever received a pneumonia vaccine?: Yes *Have you received a flu vaccine this season?: No Other Medical History: Reports: Hypothyroidism, Thyroid Disease. Denies: Blood Transfusion Reaction Anesthesia experience/problems:: None Laterality Cases: Right: Breast Biopsy Other Surgeries: Yes: Cholecystectomy, Colonoscopy, Tubal Ligation, Other. No: Pacemaker Amputation: No Fractures: No - *Social History Last grade of school completed: Advanced degree Smoking Status: Former smoker Alcohol Intake: never Alcohol Intake Frequency:: holidays/special occasions only Substance Use Type: marijuana *Occupational Status:: retired Housing: house Household Members: none *Travel in the last 8 weeks: None - Psychiatric History Pschychiatric History:: Reports:: Anxiety Family Hx:: Cancer, Diabetes, Heart Attack, Thyroid Disorder
--- NOTE | 2021-02-28 11:24 | P.PCN_ITS ---
[facility] Procedure Note Procedure Note:: Colonoscopy Procedure Report: Colonoscopy with cold biopsies Endoscopist: Jeremie Solorio II, MD Referring physician: RAFAEL Deleon Date of Procedure: February 28, 2021 Equipment: Olympus 190 variable stiffness pediatric colonoscope Sedation: MAC sedation Indication: Mrs. Hidalgo is a 71-year-old female who is here for follow-up surveillance secondary to advanced adenomatous colon polyp. Previously, she did have a prior positive Cologuard and colonoscopy on June 10, 2020 showed a 25 mm advanced adenoma along the fold of the ileocecal valve that was removed. There were 4 additional diminutive adenomatous polyps (3 to 6 mm size) removed. The patient continues to have some chronic diarrhea which is watery. She reports no rectal bleeding, abdominal pain, weight loss or change in bowel habits. She reports no family history of colon cancer. Procedure: Prior to the procedure, a history and physical exam was performed, and patient's medications and allergies were reviewed. The risks, benefits and alternatives of the sedation and procedure were discussed with the patient. All questions were answered and informed consent was obtained. The patient was brought to the procedure room. Patient identification and proposed procedure were verified by the physician and the nurse. The patient was placed in a left lateral decubitus position and the scope was passed under direct vision. Throughout the procedure, the patient's blood pressure, pulse, and oxygen saturations were girma tored continuously. The colonoscopy was accomplished without difficulty. The patient tolerated the procedure well. Findings: On digital rectal examination there was normal rectal tone. There were no external hemorrhoids. The colonoscope was introduced through the anal canal to the rectum and advanced to the cecum. The ileocecal valve and appendiceal orifice were identified. The scope was advanced a short distance into the ileum which appeared grossly normal. The scope was then withdrawn into the colon. The cecum, ascending and transverse colon and mucosa were grossly normal. Cold biopsies were taken from the right colon to rule out microscopic colitis. There were scattered diverticuli throughout the descending and sigmoid colon (LEFT colon). The rectum itself was normal. Upon retroflexion within the rectum there were grade 1-2 internal hemorrhoids. The preparation was excellent throughout with [place] Preparation Score of 9. The cecal time was 12 minutes. Impression: 1. Left-sided diverticulosis 2. Grade 1-2 internal hemorrhoids Plan: There was no evidence of any residual polyp. Based upon the size and advanced nature, I would still recommend surveillance colonoscopy in 3 years to ensure that there is no recurrence of adenomatous polyps based upon prior advanced adenoma. I will follow-up the biopsies. If she does have microscopic colitis, I will treat accordingly. She did not have any response to Colestid. We will discuss treatment options of her chronic diarrhea.
[2021-02-28 11:29] VITALS: BP 139/70; PULSE 68; RESP 18; TEMP 36.3; O2SAT 93
[2021-02-28 11:39] VITALS: BP 145/76; PULSE 68; RESP 18; O2SAT 94
[2021-02-28 11:49] VITALS: BP 191/85; PULSE 63; RESP 18; O2SAT 95
[2021-02-28 11:59] VITALS: BP 194/83; PULSE 68; RESP 18; TEMP 36.3; O2SAT 93
== END 2021-02-28 12:09 | disposition home or self-care (01) ==
LOC: OUTP 08:57
PROVIDERS: PCP Surgery; Visit Provider Internal Medicine Gastroenterology
PROC: 0DJD8ZZ Inspection of Lower Intestinal Tract, Via Natural or Artificial Opening Endoscopic (ICD-10-PCS; CPT 45378; principal; 2021-02-28 10:00)
DX: Z86.010 Personal history of colon polyps; K57.32 Diverticulitis of large intestine without perforation or abscess without bleeding; K64.0 First degree hemorrhoids; F41.9 Anxiety disorder, unspecified; E11.9 Type 2 diabetes mellitus without complications; I10 Essential (primary) hypertension; E03.9 Hypothyroidism, unspecified; Z90.49 Acquired absence of other specified parts of digestive tract; Z87.891 Personal history of nicotine dependence; F12.90 Cannabis use, unspecified, uncomplicated; Z80.9 Family history of malignant neoplasm, unspecified; Z82.3 Family history of stroke
CPT/HCPCS: 45380; 82962; 88305

== ENCOUNTER 2021-08-18 09:57 | Outpatient (RCR) | payer MEDICARE, OTHER, SELFPAY | END 2021-09-30 08:59 | disposition home or self-care (01) | LOC: PT.CARL 09:57 | PROVIDERS: PCP Nurse Practitioner Family; Visit Provider Nurse Practitioner Family | DX: R53.1 Weakness (principal); R42 Dizziness and giddiness | CPT/HCPCS: 97112; 97163 ==

== ENCOUNTER → 2021-10-21 10:12 | Outpatient (CLI) | payer MEDICARE, OTHER, SELFPAY ==
--- NOTE | 2021-10-21 10:17 | MM_ITS ---
PROCEDURE INFORMATION: Exam: MG Bilateral Screening 3D Mammography Exam date and time: 10/21/2021 10:20 AM Age: 71 years old Clinical indication: Screening examination TECHNIQUE: Imaging protocol: Bilateral Screening tomosynthesis and 2D mammography including computer-aided detection (CAD) when performed. COMPARISON: 1. MG MM DIG SCREENING MAMM BI W/CAD 10/16/2020 2:25 PM 2. MG MM DIG SCREENING MAMM BI W/CAD 10/11/2019 11:05 AM FINDINGS: MAMMOGRAPHY: Breast composition: There are scattered areas of fibroglandular density. Mass: None. Architectural distortion: None. Calcifications: No suspicious calcifications. Asymmetric density: None. Skin thickening: None. Axillary adenopathy: None. IMPRESSION: No mammographic evidence of malignancy. Annual screening is recommended unless otherwise clinically indicated. ASSESSMENT: BI-RADS Category 1: Negative
== END ==
PROVIDERS: PCP Nurse Practitioner Family; Visit Provider Nurse Practitioner Family
DX: Z12.31 Encounter for screening mammogram for malignant neoplasm of breast (principal)
CPT/HCPCS: 77063; 77067

== ENCOUNTER → 2022-02-04 09:23 | Outpatient (CLI) | payer MEDICARE, OTHER, SELFPAY ==
--- NOTE | 2022-02-04 09:32 | CT_ITS ---
FINAL REPORT CLINICAL HISTORY: THORACICANEURYSM,WITOUT RUPTURE COMPARISON: October 16, 2020 FINDINGS: Thin section axial CT images of the chest were obtained with contrast. 3D reformatted images were also obtained. This study was performed with techniques to keep radiation doses as low as reasonably achievable (ALARA). Individualized dose reduction techniques using automated exposure control or adjustment of mA and/or kV according to the patient's size were employed. There is no evidence of pulmonary embolism. There is stable ectasia of the ascending aorta up to 40 mm. There is enlargement of the main pulmonary artery and right main pulmonary artery. The right pulmonary artery measures up to 27 mm in diameter. There is no evidence of dissection. There is no evidence of mediastinal or hilar mass or adenopathy. There is mild bibasilar atelectasis or scarring. There is due patchy ground-glass opacity greatest in the upper lobes. There are several calcified granulomas in the right lung. Limited images of the upper abdomen demonstrate several less than 3 mm nonobstructing right renal stones. IMPRESSION: Stable ectasia of the ascending thoracic aorta. No dissection. New patchy ground-glass opacities may represent edema, alveolitis, or possibly pneumonia. Reviewed, Interpreted and Dictated by Shabbir Goel III, MD Transcribed by Suleman Mckinnon Authenticated and [facility]
== END ==
PROVIDERS: PCP Nurse Practitioner Family; Visit Provider Nurse Practitioner Family
DX: I71.2 Thoracic aortic aneurysm, without rupture (principal)
CPT/HCPCS: 71275; Q9967

== ENCOUNTER 2022-02-26 13:51 | Inpatient (IN) | payer MEDICARE, OTHER, SELFPAY ==
[2022-02-26] VITALS (13 sets, daily range): BP systolic 147–194; BP diastolic 66–97; PULSE 72–82; RESP 17–20; TEMP 36.6–36.9; O2SAT 90–97; BMI 25.0; BMI 24.2
--- NOTE | 2022-02-26 13:46 | ECG_ITS ---
APPROVED REPORT Exam: Resting ECG HR:76 bpm ECG Measurements Heart Rate 76 AXES WY 155 P 55 QRSd 92 QRS -65 QT 317 T 31 QTc 347 Conclusion SINUS RHYTHM WITH OCCASIONAL VENTRICULAR PREMATURE COMPLEXES PATTERN CONSISTENT WITH PULMONARY DISEASE INCOMPLETE RIGHT BUNDLE BRANCH BLOCK [90+ ms QRS DURATION, TERMINAL R IN V1/V2, 40+ ms S IN I/aVL/V4/V5/V6] LEFT ANTERIOR FASCICULAR BLOCK [QRS AXIS <= -45, QR IN I, RS IN II] NONSPECIFIC T-WAVE ABNORMALITY ABNORMAL ECG UNCONFIRMED REPORT Electronically signed by : Raleigh Kimble MD 02/28/2022 06:58:34
--- NOTE | 2022-02-26 14:07 | XR_ITS ---
FINAL REPORT CLINICAL HISTORY: cough COMPARISON: November 06, 2019 FINDINGS: The heart size is normal. The mediastinum is normal. Mild chronic changes in the lung bases are stable. There are no pleural effusions. There is no pneumothorax. There is no osseous abnormality. IMPRESSION: No acute cardiopulmonary process Reviewed, Interpreted and Dictated by Eladio Cronin MD Transcribed by Suleman Mckinnon Authenticated and [facility]
[2022-02-26 14:15] LABS: Chloride 101 mmol/L (98-107); Potassium 4.3 mmoL/L (3.5-5.1); Sodium 140 mmol/L (136-145)
[2022-02-26 14:16] LABS: Basophils # 0.1 K/mm3 (0-0.2); Basophils % 1.2 % (0.1-2.0); Eosinophils # 0.3 K/mm3 (0.0-0.4); Hematocrit 40.8 % (37.0-47.0); Hemoglobin 13.9 g/dL (12.2-16.2); Lymphocytes % 29.8 % (10-50); Mean Corpuscular Hemoglobin 31.5 pg (27.0-31.2); Mean Corpuscular Volume 92.5 fl (81-99); Mean Platelet Volume 7.5 fl (7.4-10.4); Monocytes # 0.6 K/mm3 (0.1-1.0); Monocytes % 9.8 % (1.7-9.3); Neutrophils # 3.6 K/mm3 (1.8-7.8); Neutrophils % 55.2 % (37.0-80.0); Platelet Count 150 K/mm3 (142-424); Red Blood Count 4.41 M/mm3 (4.20-5.40); Red Cell Distribution Width 12.8 % (11.5-17.5); White Blood Count 6.6 K/mm3 (4.8-10.8)
[2022-02-26 14:18] LABS: Anion Gap 12.3 mEq/L (5-15); Blood Urea Nitrogen 11 mg/dl (7-17); Calcium 8.8 mg/dl (8.4-10.2); Carbon Dioxide 31 mmol/L (22.0-30.0); Creatinine Clearance Estimated 57 mL/min (50-200); Estimated Glomerular Filt Rate 98 ml/min (>60); GFR (African American) 118 ML/MIN (>60); Glucose 142 mg/dl (74-100)
--- NOTE | 2022-02-26 14:22 | PC.NURSE ---
XRAY at bedside.
--- NOTE | 2022-02-26 14:25 | HMH.EDGENADL ---
Discharge Plan Disposition Patient Disposition: Admitted As Inpatient Condition: Fair Prescriptions Prescriptions: No Action losartan 50 MG tablet 50 mg PO DAILY lamotrigine 200 MG tablet 100 mg PO DAILY simvastatin 20 MG tablet 20 mg PO DAILY metformin 1,000 MG tablet 1,000 mg PO BID montelukast 10 MG tablet 10 mg PO DAILY cetirizine 10 MG tablet 10 mg PO DAILY glipizide 10 MG tablet extended release 24hr 10 mg PO DAILY ergocalciferol (vitamin D2) 50,000 UNIT capsule 50,000 unit PO WEEKLY metoprolol tartrate 25 MG tablet 25 mg PO DAILY levothyroxine 175 MCG tablet 175 mcg PO DAILY insulin glargine 100 UNIT/ML insulin pen 35 unit SQ DAILY fluoxetine 40 MG capsule 30 mg PO DAILY Referrals Follow up/Referrals: Radha Tapia [Primary Care Provider] - See instructions Clinical Impressions Clinical Impression: CAP (community acquired pneumonia), Hypoxia, Vertigo, Headache, Vomiting, Abdominal pain Discharge ED Provider: Rogelio Olivares General Adult HPI General Chief complaint: Dizziness Stated complaint: Dizziness Time Seen by Provider: 02/26/22 14:25 Mode of Arrival: EMS Source of Information: Patient and EMS Limitations: No Limitations Description of Symptoms (Recalled from ER Triage Doc. by RN): PT STATES SHE HAS HAD DIZZINESS, NAUSEA, VOMITING, AND COUGHING FOR 10 DAYS, SHE ALSO REPORTS SOB FOR 10 DAYS, DENIES DIARRHEA, DENIES FALLING, DENIES FEVER History of Present Illness HPI narrative: Patient brought in by ambulance. History obtained from patient and sister. She has numerous complaints. States that she started last Wednesday, 8 days ago, with vertigo. She has had vertigo in the past and has been on meclizine in the past but is not currently on any medications for it. The vertigo has been coming and going but today was more severe. She has had abdominal pain. She says that she also had vomiting of bile today. She has had diarrhea. She has had headaches, frontal today and occipital yesterday. She felt generally very weak. She has had a cough. She has had shortness of breath. She has a history of asthma. She is on inhalers. She is not on oxygen at home. States she does not have COPD. She is a former smoker but quit in the s. Denies numbness of the extremities, denies focal weakness, denies visual disturbance. Sister states that she has a history of frequent falling. Related Data Home Medications Medication Instructions Recorded Confirmed lamotrigine 200 mg tablet 100 mg PO DAILY bipolar 11/16/18 02/28/21 losartan 50 mg tablet 50 mg PO DAILY Hypertension 11/16/18 02/28/21 metformin 1,000 mg tablet 1,000 mg PO BID Diabetes 11/16/18 02/28/21 montelukast 10 mg tablet 10 mg PO DAILY allergies 11/16/18 02/28/21 simvastatin 20 mg tablet 20 mg PO DAILY Cholesterol 11/16/18 02/28/21 cetirizine 10 mg tablet 10 mg PO DAILY ALLERGIES 11/07/19 02/28/21 ergocalciferol (vitamin D2) 1,250 50,000 unit PO WEEKLY Supplement 11/07/19 02/28/21 mcg (50,000 unit) capsule glipizide 10 mg tablet, extended 10 mg PO DAILY Diabetes 11/07/19 02/28/21 release 24 hr metoprolol tartrate 25 mg tablet 25 mg PO DAILY BLOOD PRESSURE 11/07/19 02/28/21 insulin glargine 100 unit/mL (3 35 unit SQ DAILY Diabetes 06/04/20 02/28/21 mL) subcutaneous pen levothyroxine 175 mcg tablet 175 mcg PO DAILY thyroid 06/04/20 02/28/21 fluoxetine 40 mg capsule 30 mg PO DAILY Depression 02/26/21 02/28/21 Allergies Allergy/AdvReac Type Severity Reaction Status Date / Time No Known Allergies Allergy Verified 02/26/22 14:27 PFSH PFSH Social History Smoking Status: Former smoker second hand exposure: No alcohol intake: never substance use type: marijuana current occupational status: retired Travel in the last 8 weeks: None household members: none housing: house current occupation: [employer] current occupational exposures/haz
--- NOTE | 2022-02-26 14:27 | PC.NURSE ---
AYAAN CUENCA at bedside.
[2022-02-26 14:31] LABS: Troponin I < 0.01 ng/ml (0.00-0.034)
--- NOTE | 2022-02-26 14:37 | CT_ITS ---
FINAL REPORT TECHNIQUE: Thin section axial CT images were obtained from the lung apices to the upper abdomen. IV contrast was administered. MIP 3-D reformats were obtained. This study was performed with techniques to keep radiation doses as low as reasonably achievable (ALARA). Individualized dose reduction techniques using automated exposure control or adjustment of mA and/or kV according to the patient's size were employed. CLINICAL HISTORY: soa, low O2 sat FINDINGS: The mediastinal vasculature is well opacified. The heart size is normal. There is no adenopathy. There is no filling defect to suggest PE. There is no aortic dissection. There is no pericardial effusion. There is mild chronic scarring in both upper lobes. There is patchy ground-glass opacity in both lungs probably due to nonspecific pneumonitis. No pleural effusion. Limited images of the upper abdomen demonstrate no acute abnormality. IMPRESSION: No pulmonary embolism or aortic dissection. Patchy ground-glass opacity bilaterally probably due to nonspecific pneumonitis. Reviewed, Interpreted and Dictated by Eladio Cronin MD Transcribed by Suleman Mckinnon Authenticated and [facility]
--- NOTE | 2022-02-26 14:37 | CT_ITS ---
FINAL REPORT TECHNIQUE: Axial CT images were performed through the head. Coronal reformatted images were submitted. This study was performed with techniques to keep radiation doses as low as reasonably achievable (ALARA). Individualized dose reduction techniques using automated exposure control or adjustment of mA and/or kV according to the patient's size were employed. CLINICAL HISTORY: headaches, vertigo FINDINGS: There is moderate cortical atrophy. There is extensive decreased attenuation in the deep white matter. There are calcifications in the basal ganglia bilaterally. The ventricles are normal in size. There is no evidence of hemorrhage. There is no mass or edema identified. There is no abnormal extra-axial fluid seen. There is lobular mucoperiosteal thickening in the left cell of the frontal sinus. IMPRESSION: Atrophy and chronic changes. No acute intracranial process. Reviewed, Interpreted and Dictated by Eladio Cronin MD Transcribed by Suleman Mckinnon Authenticated and [facility]
--- NOTE | 2022-02-26 14:38 | CT_ITS ---
FINAL REPORT TECHNIQUE: After the administration of intravenous contrast, axial images were obtained through the abdomen and pelvis by computed tomography. The study was performed with techniques to keep radiation dose as low as reasonably achievable, (ALARA). Individual dose reduction techniques using automated exposure control or adjustment of mA and/or kV according to the patient's size were employed. CLINICAL HISTORY: abdo pain, vomiting bile. Do CTA chest first COMPARISON: November 06, 2019 FINDINGS: Abdomen: There is chronic scarring in the lung bases. There is a 1.2 cm complex low-attenuation focus in the lateral segment of the left lobe of the liver. This is entirely stable from 2 years prior. The gallbladder is absent. There has been interval removal of the 2 previous surgical drains. The previously seen inflammatory reaction has near completely resolved. There is persistent, moderate portal and retroperitoneal adenopathy of unclear significance. Adenopathy is similar in size and distribution. The liver is enlarged up to 19 cm. The spleen is enlarged up to 14 cm. The pancreas and adrenals are unremarkable. There are small nonobstructing stones in the right renal collecting system measuring up to 3 mm. The aorta is normal in caliber. Pelvis: The appendix is normal. The urinary bladder is unremarkable. There is no free fluid or adenopathy. IMPRESSION: Interval removal of surgical drains with resolving inflammatory reaction presumed to be postoperative. Mild to moderate hepatosplenomegaly associated with portal and retroperitoneal adenopathy of uncertain significance. Underlying hematopoietic disorder cannot be excluded. Reviewed, Interpreted and Dictated by Eladio Cronin MD Transcribed by Suleman Mckinnon Authenticated and [facility]
--- NOTE | 2022-02-26 14:53 | PC.NURSE ---
Pt transported to radiology via stretcher.
[2022-02-26 14:56] LABS: Coronavirus 19, PCR Not Detected (NotDetected); Influenza A, PCR Not Detected (NotDetected); Influenza B, PCR Not Detected (NotDetected)
[2022-02-26 14:58] LABS: NT Pro Brain Natriuretic Pep. 335 pg/mL (0-125)
[2022-02-26 15:00] LABS: Alanine Aminotransferase 22 U/L (12-78); Albumin Level 3.9 g/dl (3.5-5.0); Alkaline Phosphatase 98 U/L (38-126); Aspartate Amino Transferase 42 U/L (14-36); Bilirubin,Indirect 0.5 mg/dL (0.0-0.9); Bilirubin,Total 0.5 mg/dl (0.2-1.3); Bilirubin,Unconjugated 0.5 mg/dL (0.0-1.1); Lipase 156 U/L (23-300); Total Protein,Serum 7.3 g/dl (6.3-8.2)
--- NOTE | 2022-02-26 15:30 | PC.NURSE ---
Renetta RN went into patient's room and placed pt on 2L NC due to O2 noted 84% on RA.
--- NOTE | 2022-02-26 15:41 | PC.NURSE ---
Updated pt. Family at bedside. No concerns voiced at this time. States medication did help her.
--- NOTE | 2022-02-26 16:25 | PC.NURSE ---
paged service doctor for
[2022-02-26 17:06] LABS: Lactic Acid 1.1 mmol/L (0.7-2.1)
[2022-02-26 18:18] LABS: Troponin I < 0.01 ng/ml (0.00-0.034)
--- NOTE | 2022-02-26 18:54 | PC.NURSE ---
pt to br with 2 person assist
[2022-02-26 18:57] LABS: Thyroid Stimulating Hormone < 0.02 uIU/mL (0.465-4.68)
--- NOTE | 2022-02-26 19:01 | PC.NURSE ---
Called report to Juana HERNDON.
[2022-02-26 21:36] LABS: POC Glucose,Bedside 149 (70-110)
[2022-02-27] VITALS: BP 141/72; PULSE 70; RESP 18; TEMP 36.5; O2SAT 97
[2022-02-27 03:50] VITALS: BP 141/60; PULSE 74; RESP 18; TEMP 36.7; O2SAT 96
[2022-02-27 05:00] VITALS: BMI 24.2
--- NOTE | 2022-02-27 05:04 | PC.NURSE ---
Pt aox4. Has not voiced any complaints to staff. Pt was desatting to 87-88% while asleep. 2 L nc applied, pt now sats >90%. Bilateral lower lobes diminished. Call light within reach.
[2022-02-27 06:16] LABS: POC Glucose,Bedside 254 (70-110)
[2022-02-27 08:00] VITALS: BP 157/71; PULSE 91; RESP 16; TEMP 36.9; O2SAT 95; O2SAT 96
--- NOTE | 2022-02-27 08:18 | EXP.PHA.VTE ---
[facility] Pharmacy VTE Monitoring Patient Demographics Admission date: 02/26/22 Report Date: 02/27/22 Time: 08:18 Patient Allergies No Known Allergies Allergy (Verified 02/26/22 14:27) Height: 1.7 m Weight: 69.91 kg Current Active Problems (Updated 02/26/22 @ 17:06 by Rogelio Olivares MD) CAP (community acquired pneumonia) (Acute) Hypoxia (Acute) Vertigo (Acute) Headache (Acute) Vomiting (Acute) Abdominal pain (Acute) VTE Risk Labs: VTE Related Lab Results Hgb 13.9 g/dL (12.2-16.2) 02/26/22 14:05 Hct 40.8 % (37.0-47.0) 02/26/22 14:05 Plt Count 150 K/mm3 (142-424) 02/26/22 14:05 BUN 11 mg/dl (7-17) 02/26/22 14:05 Creatinine 0.60 mg/dl (0.52-1.04) 02/26/22 14:05 Estimated Creat Clear 57 mL/min (50-200) 02/26/22 14:05 VTE Risk Level: Very Low Risk Prophylaxis VTE Prophylaxis Ordered?: Yes Types of VTE Prophylaxis: TEDS Knee High Location of Applied Device: Bilateral Lower Extremeties
--- NOTE | 2022-02-27 08:58 | HMH.PHAINT1 ---
Pharmacy Intervention Comments: MEDICATION RECONCILIATION COMPLETED ON PATIENT USING EXTERNAL FILL HISTORY FROM PHARMACY. -VIVEK HENDRICKS, RAMONAD
--- NOTE | 2022-02-27 09:24 | EXP.HP ---
History of Present Illness *Admission Date: 02/26/22 *Reason for visit:: SOA, weakness *History of present illness: History obtained from patient and sister.? She has numerous complaints.? States that she started last Wednesday, 8 days ago, with vertigo.? She has had vertigo in the past and has been on meclizine in the past but is not currently on any medications for it.? The vertigo has been coming and going but today was more severe.? She has had abdominal pain. ? She says that she also had vomiting of bile today.? She has had diarrhea.? She has had headaches, frontal today and occipital yesterday.? She felt generally very weak.? She has had a cough.? She has had shortness of breath.? She has a history of asthma.? She is on inhalers.? She is not on oxygen at home.? States she does not have COPD.? She is a former smoker but quit in the s. ? Denies numbness of the extremities, denies focal weakness, denies visual disturbance.? Sister states that she has a history of frequent falling. (above as per ER physician) The patient's oxygen when she arrived in the ER was 89 to 90% on room air. It did drop as low as 83% on room air while she was in the emergency room. She was placed on oxygen. A CTA in the ER showed a pneumonitis and she was therefore admitted. [facility] Medical History (Updated 02/27/22 @ 09:39 by DEB Sahu) Diabetes History of mastoiditis History of seizures Hypertension Hypothyroidism Mixed hyperlipidemia Vertigo Surgical History (Updated 02/27/22 @ 09:31 by DEB Sahu) History of cholecystectomy History of colonoscopy History of tubal ligation Family History (Updated 02/27/22 @ 09:32 by DEB Sahu) COPD (chronic obstructive pulmonary disease) Cancer Hypertension Social History Smoking Status: Former smoker second hand exposure: No alcohol intake: never substance use type: marijuana current occupational status: retired Travel in the last 8 weeks: None household members: none housing: house current occupation: [employer] current occupational exposures/hazards: No caffeine: Yes Review of Systems Constitutional Constitutional: Reports frequent falls, Reports headache(s) and Reports weakness Eyes Eyes: Denies blurry vision and Denies diplopia ENT Ears, Nose, Mouth, and Throat: Reports headache(s), Denies nasal congestion and Reports vertigo *Cardiovascular Cardiovascular: Denies chest pain and Reports dyspnea *Respiratory Respiratory: Reports cough and Reports dyspnea *Gastrointestinal Gastrointestinal: Denies loose stools, Reports nausea and Reports vomiting *Genitourinary Genitourinary: Denies difficulty voiding and Denies dysuria *Musculoskeletal Musculoskeletal: Denies myalgias and Denies numbness *Neurologic Neurologic: Denies localized weakness, Reports frequent falls, Reports headache(s), Denies numbness, Reports vertigo and Reports weakness Meds Home Medications and Allergies Home Medications Medication Instructions Recorded Confirmed Type losartan 50 mg tablet 50 mg PO DAILY Hypertension 11/16/18 02/26/22 History metformin 1,000 mg tablet 1,000 mg PO BIDWMEAL Diabetes 11/16/18 02/27/22 History montelukast 10 mg tablet 10 mg PO PM allergies 11/16/18 02/27/22 History simvastatin 20 mg tablet 20 mg PO HS Cholesterol 11/16/18 02/27/22 History cetirizine 10 mg tablet 10 mg PO DAILY ALLERGIES 11/07/19 02/26/22 History ergocalciferol (vitamin D2) 1,250 50,000 unit PO WEEKLY Supplement 11/07/19 02/26/22 History mcg (50,000 unit) capsule glipizide 10 mg tablet, extended 10 mg PO DAILY Diabetes 11/07/19 02/26/22 History release 24 hr metoprolol tartrate 25 mg tablet 25 mg PO DAILY Hypertension 11/07/19 02/26/22 History insulin glargine 100 unit/mL (3 30 unit SQ HS Diabetes 06/04/20 02/27/22 History mL) subcutaneous pen fluoxetine 10 mg capsule 10 mg PO DAILY MOOD 02/27/22 02/27/22 History fluoxetine 20 mg capsule 20 mg PO DAILY MOOD 02/27/2202/27
--- NOTE | 2022-02-27 09:30 | HMH.PTEV ---
Physical Therapy Evaluation Rehab PT IP Evaluation Start: 02/27/22 09:23 Freq: ONCE Status: Active Protocol: Document 02/27/22 09:27 PHOBEHZAD (Rec: 02/27/22 09:30 PHORNE [id number]) Subjective/History History History 72 yowf adm to [facility] with PNA. She reports feeling mildly dizzy at times, but better today. She reports she lives alone, 15 steps to enter the home with handrail, uses a cane primarily for ambulation, but does have a walker as well. Generally she is independent with all ADLs Subjective Subjective Pt with no c/o this am. Rehab PT IP Eval Objective Appearance Patient Behavior Appropriate Patient Orientation Person,Place,Time Difficulty following instructions none Speech Pattern Clear Ambulation Patient Able to Ambulate Yes Ambulation Observation IP General Gait Pattern Observation No Deviations/Normal Ambulation Distance (feet) 35 Ambulation Assistive Device None Ambulation Ability Supervision/Stand by Balance Ability to Arise Able, uses arms to help Sitting Balance Steady, safe Standing Balance Steady, wide stance Dynamic Sitting Balance Ability Good Dynamic Standing Balance Ability Good Transfers Bed Transfer Ability Supervision/Stand by Chair Transfer Ability Supervision/Stand by Sit to Stand Bed Transfer Ability Supervision/Stand by Sit to Stand Chair Transfer Ability Supervision/Stand by ROM All Extremities PT ROM Status WFL MMT All Extremities PT MMT WFL Rehab PT IP prob,goals,plan Problems Date of Evaluation: 02/27/22 Discharge Plan PT Discharge Plan Pt presents at baseline for all mobility at this time, she is appropriate to return home once medically stable. No current inpatient therapy needs. G -code Required No Eval Complexity Eval Charge Codes 59747 - Moderate Complexity PHYSICIAN CERTIFICATION: I certify the specified therapy services for Sweetie Hidalgo are required, authorized, and reviewed every 30 days.
--- NOTE | 2022-02-27 09:47 | HMH.OTEV ---
OT Inpatient Evaluation Rehab OT IP Evaluation Start: 02/27/22 09:23 Freq: ONCE Status: Complete Protocol: Document 02/27/22 09:39 [facility] (Rec: 02/27/22 09:44 [facility] [id number]) Rehab OT IP Assessment Subjective History Pt oriented x 3 on arrival. Pt agreeable to engage in therapy session. Pt was admitted via ED on 02/26/22 for SOB, weakness, and vertigo. Prior to being in the hospital , pt lived at home alone. Pt claimed she was independent with all ADLs. She was independent with most IADL such as cleaning and cooking. Pt's sister would complete her grocery shopping for her and check on her often. Pt did use a walker or cane during ambulation. She also has a shower chair she uses in the shower. She does have 16 steps at home she must climb, but normally she does not have difficulty with this task . Subjective I am hoping to go home soon. Objective Patient Orientation Person,Place,Birthday,Year Upper Extremity Gross ROM WFL Bed Mobility bed mobility-scooting,bed mobility - supine/sit,bed mobility - rolling Assist Level Independent Transfer Training Sit/Stand Transfer Assist Level Supervision/Stand by Chair Transfer Ability Supervision/Stand by Chair Transfer Technique Sit to/from Ambulatory Lower Body Dressing Ability Standby Assistance Performing Toilet Hygiene Ability Standby Assistance Overall Commode/Toilet Transfer Ability Standby Assistance Commode/Toilet Transfer Technique Sit to/from Ambulatory decrease in endurance No Rehab OT IP prob,goals,plan Problems Date of Evaluation: 02/27/22 Rehab Potential Rehab Potential Innapropriate for Skilled Therapy Discharge Plan OT Discharge Plan At this time, pt appears to be at her baseline for ADL independence and functional transfers. Pt can return home once medically stable per physician. Eval Complexity Eval Lorraine
[2022-02-27 12:00] VITALS: BP 157/72; BP 160/63; PULSE 66; PULSE 68; RESP 18; TEMP 36.8; TEMP 36.9; O2SAT 95; O2SAT 96
[2022-02-27 14:29] VITALS: BMI 24.2
[2022-02-27 16:00] VITALS: BP 182/81; PULSE 68; RESP 18; TEMP 36.8; O2SAT 97
--- NOTE | 2022-02-27 16:39 | PC.NURSE ---
PT IS AOX4, ABLE TO MAKE NEEDS KNWON TO STAFF. CURRENTLY TOLERATING 2LNC FOR O2 SUPPORT WITH O2 SATURATION >90%. SHE HAS NOT C/O SOB. FAINT WHEEZING AUSCULTATED IN LUNG BASES. TOLERATING DIET WELL DENIES N/V/D. NO COMPLAINTS VOICED TO STAFF THIS SHIFT.
--- NOTE | 2022-02-27 17:31 | PC.NURSE ---
pt had 1 unmeasured void 1400
[2022-02-27 18:07] LABS: POC Glucose,Bedside 330 (70-110)
[2022-02-27 20:00] VITALS: BP 150/76; PULSE 66; RESP 17; TEMP 37; O2SAT 96
[2022-02-28] VITALS (7 sets, daily range): BP systolic 128–158; BP diastolic 68–81; PULSE 58–76; RESP 16–18; TEMP 36.8–37.1; O2SAT 92–95; BMI 24.3
[2022-02-28 04:19] LABS: POC Glucose,Bedside 377 (70-110)
--- NOTE | 2022-02-28 05:15 | PC.NURSE ---
pt has rested well this shift, A&OX4. ambulates to and from bathroom with standby assistance. no c/o pain this shift. O2 sats in 90s on 2L NC. FSBS 344 this am, insulin given per sliding scale on aug. CB in reach.
[2022-02-28 06:19] LABS: POC Glucose,Bedside 344 (70-110)
--- NOTE | 2022-02-28 08:46 | EXP.ACUTE.PN ---
Subjective *Date: 02/28/22 *Time: 09:12 Interval history: Patient is feeling better today. She states her cough has improved as has her shortness of breath. She is still on nasal oxygen at 2 L. She states she was not able to rest during the night but did eat some breakfast. She denies any pain. Medical Exam Vital signs and Labs for Last 24 Hours: Temp Pulse Resp BP Pulse Ox 98.6 F 61 16 128/68 94 L 02/28/22 04:00 02/28/22 04:00 02/28/22 04:00 02/28/22 04:00 02/28/22 04:00 Laboratory Results - last 24 hr 02/27/22 11:58: POC Glucose 330 H* 02/27/22 20:20: POC Glucose 377 H* 02/28/22 05:09: POC Glucose 344 H* I & O for Labs for Last 24 Hours: Intake & Output 02/25/22 02/26/22 02/27/22 02/28/22 11:59 11:59 11:59 11:59 Intake Total 360 / 360 1140 / 1140 Output Total 600 / 600 150 / 150 Balance -240 / -240 990 / 990 Weight 154 lb 2 oz 154 lb 8.846 oz Constitutional: Present no acute distress Respiratory: Present rales (bibasilar) Cardiac: Present Reg Rate and Rhythm GI: Present soft; Absent distention, tenderness or guarding Extremities: Absent edema Neuro: Present alert, awake and oriented x 3 Assessment and Plan *Assessment and plan (1) Pneumonitis: Status: Acute Category: Medical Code(s): J18.9 - Pneumonia, unspecified organism (2) Hypoxia: Status: Acute Category: Medical Code(s): R09.02 - Hypoxemia (3) Vertigo: Status: Acute Category: Medical Code(s): R42 - Dizziness and giddiness (4) Headache: Status: Acute Category: Medical Code(s): R51.9 - Headache, unspecified (5) Vomiting: Status: Acute Category: Medical Code(s): R11.10 - Vomiting, unspecified (6) Hypothyroidism: Status: Chronic Qualifiers: Hypothyroidism type: acquired Qualified Code(s): E03.9 - Hypothyroidism, unspecified Category: Medical Code(s): E03.9 - Hypothyroidism, unspecified (7) Diabetes: Status: Chronic Qualifiers: Diabetes mellitus complication status: with hyperglycemia Diabetes mellitus intermediate designer insulin use: unspecified skilled nursing insulin use status Diabetes mellitus type: type 2 Qualified Code(s): E11.65 - Type 2 diabetes mellitus with hyperglycemia Category: Medical Code(s): E11.9 - Type 2 diabetes mellitus without complications (8) Hypertension: Status: Chronic Category: Medical Code(s): I10 - Essential (primary) hypertension Plan We will continue antibiotics and steroids and try to wean oxygen today. Patient is improving. Dr. May entry - Saw patient, agree with above note.
[2022-02-28 12:58] LABS: POC Glucose,Bedside 407 (70-110)
--- NOTE | 2022-02-28 19:18 | PC.NURSE ---
Pt alert and oriented x 4. VSS. CB in reach and NAD. Meds per mar. Has been sitting up in bed and showered this shift. Lung sounds diminished. Have weaned pt to RA, sats remain mid 90's.
[2022-03-01 03:58] VITALS: BP 148/79; PULSE 67; RESP 16; TEMP 37.1; O2SAT 91; BMI 24.3
--- NOTE | 2022-03-01 04:14 | PC.NURSE ---
pt rested well t/o the night. A&OX4. ambulates to and from bathroom with standby assistance. tolerating RA well with sats >90%. no c/o pain or SOA this shift. CB in reach.
[2022-03-01 07:56] VITALS: BP 127/64; PULSE 73; RESP 16; TEMP 36.7; O2SAT 94
--- NOTE | 2022-03-01 10:51 | EXP.ACUTE.PN ---
Subjective *Date: 03/01/22 *Time: 12:49 Interval history: Patient states she is feeling better this morning. She actually rested last night and ate some of her breakfast today. She has been off of nasal oxygen with sats in the 90s on room air. She still has a cough. Medical Exam Vital signs and Labs for Last 24 Hours: Temp Pulse Resp BP Pulse Ox FiO2 98.1 F 73 16 127/64 94 L 28 03/01/22 07:56 03/01/22 07:56 03/01/22 07:56 03/01/22 07:56 03/01/22 07:56 02/28/22 17:58 Laboratory Results - last 24 hr 02/28/22 12:36: POC Glucose 407 H* I & O for Labs for Last 24 Hours: Intake & Output 02/26/22 02/27/22 02/28/22 03/01/22 11:59 11:59 11:59 11:59 Intake Total 360 / 360 1740 / 1740 1310 / 1310 Output Total 600 / 600 300 / 300 200 / 200 Balance -240 / -240 1440 / 1440 1110 / 1110 Weight 154 lb 2 oz 154 lb 8.846 oz 155 lb 6.814 oz Microbiology Reports for the Last 24 Hours: Microbiology 02/26/22 16:40 Blood Blood Culture - Preliminary NO GROWTH AFTER 48 HOURS 02/26/22 16:40 Blood Blood Culture - Preliminary NO GROWTH AFTER 48 HOURS Constitutional: Present no acute distress Respiratory: Present rales (bibasilar) Cardiac: Present Reg Rate and Rhythm GI: Present soft; Absent distention, tenderness or guarding Extremities: Absent edema Neuro: Present alert, awake and oriented x 3 Assessment and Plan *Assessment and plan (1) Pneumonitis: Status: Acute Category: Medical Code(s): J18.9 - Pneumonia, unspecified organism (2) Hypoxia: Status: Acute Category: Medical Code(s): R09.02 - Hypoxemia (3) Vertigo: Status: Acute Category: Medical Code(s): R42 - Dizziness and giddiness (4) Headache: Status: Acute Category: Medical Code(s): R51.9 - Headache, unspecified (5) Vomiting: Status: Acute Category: Medical Code(s): R11.10 - Vomiting, unspecified (6) Hypothyroidism: Status: Chronic Qualifiers: Hypothyroidism type: acquired Qualified Code(s): E03.9 - Hypothyroidism, unspecified Category: Medical Code(s): E03.9 - Hypothyroidism, unspecified (7) Diabetes: Status: Chronic Qualifiers: Diabetes mellitus complication status: with hyperglycemia Diabetes mellitus usp insulin use: unspecified termite renewal inspector insulin use status Diabetes mellitus type: type 2 Qualified Code(s): E11.65 - Type 2 diabetes mellitus with hyperglycemia Category: Medical Code(s): E11.9 - Type 2 diabetes mellitus without complications (8) Hypertension: Status: Chronic Category: Medical Code(s): I10 - Essential (primary) hypertension Plan Patient is improving. Glucose is high today likely from steroids. May be able to discharge today. Will discuss with Dr. May. Saw patient agree with above note. OK to discharge home today. With Cefdinir and Zithromax. F/U with Radha Tapia APRN, this week.
[2022-03-01 11:00] VITALS: BP 154/68; PULSE 59; RESP 17; TEMP 37; O2SAT 94
[2022-03-01 11:45] LABS: POC Glucose,Bedside 316 (70-110)
[2022-03-01 11:45] LABS: POC Glucose,Bedside 300 (70-110)
--- NOTE | 2022-03-01 13:17 | HMH.PHAINT1 ---
Pharmacy Intervention Comments: DISCHARGE MEDICATION COUNSELING PROVIDED. DISCUSSED SHORT-COURSE AZITHROMYCIN (3 DAYS) AND CEFDINIR (5 DAYS). WATCH FOR UPSET STOMACH, NAUSEA, DIARRHEA WITH BOTH. MAY WANT TO TAKE WITH FOOD, PROBIOTICS OR YOGURT WITH ACTIVE CULTURES CAN HELP WITH DIARRHEA. PATIENT STATES SHE WAS ON THE CEFDINIR PRIOR TO HOSPITALIZATION AND IS FAMILIAR. PATIENT VERBALIZED NO QUESTIONS AT THIS TIME.
--- NOTE | 2022-03-03 13:21 | CARE MANAGER ---
Called and spoke with Ms. Hidalgo regarding her post discharge status. Patient states that she is feeling better. 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 She plans to have it picked up today. I explained that the medication was very important and that she definitely needs to start it today. She states that she was very pleased with the care she received here. Has scheduled a f/u with her PCP on 02/07/2022.
--- NOTE | 2022-03-04 09:10 | EXP.DC.SUM ---
General Admission date:: 02/26/22 Discharge date: 03/01/22 HPI HPI HPI: History obtained from patient and sister.? She has numerous complaints.? States that she started last Wednesday, 8 days ago, with vertigo.? She has had vertigo in the past and has been on meclizine in the past but is not currently on any medications for it.? The vertigo has been coming and going but today was more severe.? She has had abdominal pain. ? She says that she also had vomiting of bile today.? She has had diarrhea.? She has had headaches, frontal today and occipital yesterday.? She felt generally very weak.? She has had a cough.? She has had shortness of breath.? She has a history of asthma.? She is on inhalers.? She is not on oxygen at home.? States she does not have COPD.? She is a former smoker but quit in the s. ? Denies numbness of the extremities, denies focal weakness, denies visual disturbance.? Sister states that she has a history of frequent falling. (above as per ER physician) The patient's oxygen when she arrived in the ER was 89 to 90% on room air. It did drop as low as 83% on room air while she was in the emergency room. She was placed on oxygen. A CTA in the ER showed a pneumonitis and she was therefore admitted. Hospital Course Hospital Course Hospital Course: Patient was admitted and started on oxygen as well as Zithromax and Rocephin. She was also started on steroids. She did improve throughout her stay. Her cough improved as did her shortness of breath. She was able to be weaned from nasal cannula to room air. She began resting better and began eating. Her blood cultures returned showing no growth. She was stable to be discharged home on cefdinir and Zithromax and will follow-up with Katie Tapia. Exam Data for Last 24 hours Vital signs and Labs for Last 24 Hours: Temp Pulse Resp BP Pulse Ox FiO2 98.6 F 59 L 17 154/68 H 94 L 28 03/01/22 11:00 03/01/22 11:00 03/01/22 11:00 03/01/22 11:00 03/01/22 11:00 02/28/22 17:58 I & O for Last 24 hours: Intake & Output 03/01/22 03/02/22 03/03/22 03/04/22 11:59 11:59 11:59 11:59 Intake Total 1310 / 1310 290 / 290 Output Total 200 / 200 0 / 0 Balance 1110 / 1110 290 / 290 Weight 155 lb 6.814 oz Microbiology Reports for the Last 24 Hours: Microbiology 02/26/22 16:40 Blood Blood Culture - Final NO GROWTH AFTER 5 DAYS 02/26/22 16:40 Blood Blood Culture - Final NO GROWTH AFTER 5 DAYS Narrative: Constitutional Constitutional: no acute distress *Routine HEENT Exam Head: Present normocephalic and atraumatic Eye: Present EOMI and PERRL ENT: Present mucous membranes dry *Routine Neck Exam Neck: Present supple and full ROM *Routine Respiratory Exam Respiratory: Present wheezes; Absent crackles *Routine Cardiovascular Exam Cardiovascular: Present RRR *Routine Abdominal Exam Abdominal: Present soft and normoactive bowel sounds; Absent tenderness *Routine Rectal Exam Rectal:: deferred *Routine Genitalia Exam Genitalia:: deferred *Routine Extremities Exam Extremities: Absent cyanosis, clubbing or edema *Routine Skin Exam Skin: Present intact; Absent erythema *Routine Neurological Exam Neurological: Present alert and oriented X3 DS: Diagnosis Discharge Diagnosis (1) Pneumonitis: Status: Acute (2) Hypoxia: Status: Acute (3) Vertigo: Status: Acute (4) Headache: Status: Acute (5) Vomiting: Status: Acute (6) Hypothyroidism: Status: Chronic (7) Diabetes: Status: Chronic (8) Hypertension: Status: Chronic Meds Home Medications and Allergies Home Medications Medication Instructions Recorded Confirmed Type losartan 50 mg tablet 50 mg PO DAILY Hypertension 11/16/18 02/26/22 History metformin 1,000 mg tablet 1,000 mg PO BIDWMEAL Diabetes 11/16/18 02/27/22 History montelukast 10 mg tablet 10 mg PO PM allergies 11/16/18 02/27/22
== END 2022-03-01 13:55 | disposition home or self-care (01) | DRG 195 ==
LOC: ER 17:06 → 2ND 17:35
PROVIDERS: Admitting Provider Family Medicine; Emergency Provider Emergency Medicine; PCP Nurse Practitioner Family; Visit Provider Family Medicine
DX: J18.9 Pneumonia, unspecified organism (principal); Z87.891 Personal history of nicotine dependence; E11.9 Type 2 diabetes mellitus without complications; I10 Essential (primary) hypertension; Z79.4 Long term (current) use of insulin; Z79.899 Other long term (current) drug therapy; E03.9 Hypothyroidism, unspecified; E78.5 Hyperlipidemia, unspecified; Z20.822 Contact with and (suspected) exposure to COVID-19
CPT/HCPCS: 70450; 71045; 71275; 74176; 80048; 80076; 82962; 83605; 83690; 83880; 84443; 84484; 85025; 87040; 93005; 97162; 97166; 99285; C9803; J0456; J0696; J2405; Q9967; U0003; U0005

== ENCOUNTER → 2022-06-17 09:50 | Outpatient (CLI) | payer MEDICARE, OTHER, SELFPAY ==
[2022-06-17 10:58] LABS: Chloride 103 mmol/L (98-107); Potassium 3.9 mmoL/L (3.5-5.1); Sodium 142 mmol/L (136-145)
[2022-06-17 11:01] LABS: Alanine Aminotransferase 16 U/L (12-78); Albumin Level 4.1 g/dl (3.5-5.0); Albumin/Globulin Ratio 1.5 (1.1-1.8); Alkaline Phosphatase 63 U/L (38-126); Anion Gap 12.9 mEq/L (5-15); Aspartate Amino Transferase 22 U/L (14-36); Bilirubin,Total 0.5 mg/dl (0.2-1.3); Blood Urea Nitrogen 16 mg/dl (7-17); Carbon Dioxide 30 mmol/L (22.0-30.0); Estimated Glomerular Filt Rate 98 ml/min (>60); GFR (African American) 118 ML/MIN (>60); Globulin 2.7 g/dL (1.3-3.2); Glucose 127 mg/dl (74-100); Total Protein,Serum 6.8 g/dl (6.3-8.2)
== END ==
PROVIDERS: PCP Nurse Practitioner Family; Visit Provider Internal Medicine Hospice and Palliative Medicine
DX: R59.1 Generalized enlarged lymph nodes (principal)
CPT/HCPCS: 36415; 80053

== ENCOUNTER → 2022-06-19 08:27 | Outpatient (CLI) | payer MEDICARE, OTHER, SELFPAY ==
--- NOTE | 2022-06-19 08:33 | CT_ITS ---
FINAL REPORT TECHNIQUE: After the administration of intravenous contrast, axial images were obtained through the abdomen and pelvis by computed tomography. This study was performed with technique to keep radiation doses as low as reasonably achievable, (ALARA). Individualized dose reduction techniques using automated exposure control or adjustment of the MA and/or KV according to the patient's size were employed. CLINICAL HISTORY: LYMPHADENOPATHY COMPARISON: 02/26/2022 FINDINGS: Abdomen: The lung bases demonstrate mild bibasilar atelectasis or scarring. Patient is status post cholecystectomy. There is mild irregularity of the hepatic contour, cirrhosis not excluded. A mass is seen in the lateral segment of the left hepatic lobe measuring 14 mm which is stable but of uncertain etiology. This could represent atypical hemangioma. The spleen is enlarged at 13.5 cm. The adrenals are normal. The pancreas is unremarkable. The kidneys enhance appropriately. The aorta is normal in caliber. There is a small amount of ascites. There has been partial interval improvement of multiple enlarged lymph nodes. For instance, of paracaval lymph node now measures 9 mm, previously measured 12 mm. Other lymph nodes are also smaller. Pelvis: The appendix is normal. There are scattered diverticula without evidence of diverticulitis. The urinary bladder is unremarkable. IMPRESSION: Stable appearance to the liver and spleen. Partially improved adenopathy. Stable hepatic mass which could represent atypical hemangioma. Reviewed, Interpreted and Dictated by Shabbir Goel III, MD Transcribed by Jesusita Alejandro Authenticated and [facility]
--- NOTE | 2022-06-19 08:33 | CT_ITS ---
FINAL REPORT CLINICAL HISTORY: LYMPHADENOPATHY COMPARISON: 02/26/2022 FINDINGS: Axial CT images of the chest were obtained with contrast. Coronal reformatted images were also obtained. This study was performed with techniques to keep radiation doses as low as reasonably achievable, (ALARA). Individualized dose reduction techniques using automated exposure control or adjustment of mA and/or KV according to the patient's size were employed. There are stable small mediastinal and hilar nodes. No axillary mass or adenopathy is identified. Note is made of mild scarring. There are new, multifocal bilateral ground-glass opacities and ground-glass nodules, most likely inflammatory but may represent multifocal pneumonia. There is a new, 5 mm cavitary nodule in the left upper lobe, likely inflammatory. IMPRESSION: New ground-glass opacities in ground-glass nodules, most likely inflammatory but may represent focal pneumonia. New, cavitary nodule in the left upper lobe, likely inflammatory. Follow-up chest CT in 3-6 months may be helpful. Reviewed, Interpreted and Dictated by Shabbir Goel III, MD Transcribed by Lucy Blanca Authenticated and [facility]
== END ==
PROVIDERS: PCP Nurse Practitioner Family; Visit Provider Internal Medicine Hospice and Palliative Medicine
DX: R59.0 Localized enlarged lymph nodes (principal)
CPT/HCPCS: 71260; 74177; Q9967

== ENCOUNTER → 2022-11-13 16:16 | Outpatient (CLI) | payer MEDICARE, OTHER, SELFPAY ==
--- NOTE | 2022-11-13 16:20 | MM_ITS ---
PROCEDURE INFORMATION: Exam: MG Bilateral Screening 3D Mammography Exam date and time: 11/13/2022 4:17 PM Age: 72 years old Clinical indication: Screening mammogram TECHNIQUE: Imaging protocol: Bilateral Screening tomosynthesis and 2D mammography including computer-aided detection (CAD) when performed. COMPARISON: 1. MG MM DIG SCREENING MAMM BI W/CAD 10/21/2021 10:20 AM 2. MG MM DIG SCREENING MAMM BI W/CAD 10/16/2020 2:25 PM 3. MG MM DIG SCREENING MAMM BI W/CAD 10/11/2019 11:05 AM 4. MG SCBI MM Dig screening mamm BI w/CAD 07/20/2018 10:37 AM FINDINGS: MAMMOGRAPHY: Breast composition: There are scattered areas of fibroglandular density. Mass: None. Architectural distortion: No new or suspicious architectural distortion. Calcifications: No new or suspicious calcifications are present Asymmetric density: No new or suspicious asymmetric density is present Skin thickening: None. Axillary adenopathy: None. IMPRESSION: No mammographic evidence of malignancy. Recommend annual screening mammography unless otherwise clinically indicated. ASSESSMENT: BI-RADS category 1: Negative
== END ==
PROVIDERS: PCP Nurse Practitioner Family; Visit Provider Nurse Practitioner Family
DX: Z12.31 Encounter for screening mammogram for malignant neoplasm of breast (principal)
CPT/HCPCS: 77063; 77067

== ENCOUNTER → 2022-11-16 08:38 | Outpatient (CLI) | payer MEDICARE, OTHER, SELFPAY ==
--- NOTE | 2022-11-16 08:42 | US_ITS ---
FINAL REPORT TECHNIQUE: Limited ultrasound imaging of the right upper quadrant was obtained. CLINICAL HISTORY: HEPATOMEGALY COMPARISON: 06/19/2022 FINDINGS: There is a 17 mm mass in the lateral left hepatic lobe, favor hemangioma, as seen on recent CT. Common duct is normal at 4 mm. Patient is status post cholecystectomy. IMPRESSION: 17 mm mass in the lateral left hepatic lobe, favor hemangioma. Reviewed, Interpreted and Dictated by Shabbir Goel III, MD Transcribed by Jesusita Alejandro Authenticated and [facility]
== END ==
PROVIDERS: PCP Nurse Practitioner Family; Visit Provider Nurse Practitioner Family
DX: R16.0 Hepatomegaly, not elsewhere classified (principal)
CPT/HCPCS: 76705

== ENCOUNTER → 2022-12-10 07:03 | Outpatient (CLI) | payer MEDICARE, OTHER, SELFPAY ==
[2022-12-10 07:30] LABS: Anion Gap 11.4 mEq/L (5-15); Blood Urea Nitrogen 15 mg/dl (7-17); Calcium 8.8 mg/dl (8.4-10.2); Carbon Dioxide 31 mmol/L (22.0-30.0); Chloride 101 mmol/L (98-107); Estimated Glomerular Filt Rate 70 ml/min (>60); GFR (African American) 85 ML/MIN (>60); Glucose 150 mg/dl (74-100); Phosphorous 3.4 mg/dl (2.5-4.5); Potassium 4.4 mmoL/L (3.5-5.1); Sodium 139 mmol/L (136-145)
--- NOTE | 2022-12-10 07:41 | MR_ITS ---
FINAL REPORT CLINICAL HISTORY: RIGHT UPPER QUADRANT ABDOMINAL SWELLING. COMPARISON: Ultrasound dated 11/16/2022, CT abdomen and pelvis dated 06/19/2022 FINDINGS: Multiplanar MR imaging of the abdomen was performed without and with contrast. There is a 13 mm mass in the lateral segment of the left hepatic lobe. This shows globular peripheral contrast-enhancement and has an appearance most consistent with a hemangioma. No other hepatic mass is seen. There is no evidence of biliary ductal dilatation. The patient is status postcholecystectomy. There is a less than 1 cm cyst in the upper pole of the right kidney No other mass or adenopathy is identified. No abnormal fluid collection is seen. IMPRESSION: Mass in the lateral segment of the left hepatic lobe has an appearance most consistent with a hemangioma. Reviewed, Interpreted and Dictated by Shabbir Goel III, MD Transcribed by Daphney Del Rosario Authenticated and [facility]
== END ==
PROVIDERS: PCP Nurse Practitioner Family; Visit Provider Nurse Practitioner Family
DX: R19.01 Right upper quadrant abdominal swelling, mass and lump (principal)
CPT/HCPCS: 36415; 74183; 80069; A9576

== ENCOUNTER 2023-12-03 17:46 | Emergency (ER) | payer MEDICARE, OTHER, SELFPAY ==
[2023-12-03] VITALS (7 sets, daily range): BP systolic 161–186; BP diastolic 71–84; PULSE 55–67; RESP 13–21; TEMP 36.6–36.7; O2SAT 90–98; BMI 25.0
--- NOTE | 2023-12-03 | CT_ITS ---
PROCEDURE INFORMATION: Exam: CTA Neck With Contrast Exam date and time: 12/03/2023 6:25 PM Age: 73 years old Clinical indication: Dizziness and giddiness TECHNIQUE: Imaging protocol: Computed tomographic angiography of the neck with contrast. Exam focused on the cervical segments of the vasculature. 3D rendering (Not supervised by radiologist): MIP and/or 3D reconstructed images were created by the technologist. Radiation optimization: All CT scans at this facility use at least one of these dose optimization techniques: automated exposure control; mA and/or kV adjustment per patient size (includes targeted exams where dose is matched to clinical indication); or iterative reconstruction. Contrast material: ISOVUE 370; Contrast volume: 100 ml; Contrast route: INTRAVENOUS (IV); COMPARISON: CT ANGIO NECK 12/03/2023 6:25 PM FINDINGS: Right common carotid artery: No stenosis. No dissection or occlusion. Right internal carotid artery: Mild stenosis at the origin of the right internal carotid artery estimated at 30%. Right external carotid artery: No occlusion or stenosis of the origin. Left common carotid artery: No stenosis. No dissection or occlusion. Left internal carotid artery: Mild stenosis at the origin of the left internal carotid artery estimated at 20%. Left external carotid artery: No occlusion or stenosis of the origin. Right vertebral artery: No stenosis. No dissection or occlusion. Left vertebral artery: No stenosis. No dissection or occlusion. Soft tissues: Normal. No significant soft tissue swelling. Bones/joints: No acute fracture. IMPRESSION: 1. Mild stenosis at the origin of the right internal carotid artery estimated at 30%. 2. Mild stenosis at the origin of the left internal carotid artery estimated at 20%. 3. No high-grade stenosis or occlusion. REFERENCES: NASCET CRITERIA. The degree of stenosis in the cervical segment of the internal carotid artery is based on NASCET criteria. Normal is no stenosis. Mild is less than 50% stenosis. Moderate is 50-69% stenosis. Severe is 70% to 99% stenosis. Total occlusion is no detectable patent lumen.
--- NOTE | 2023-12-03 17:51 | CT_ITS ---
PROCEDURE INFORMATION: Exam: CTA Head With Contrast, Arteriography Exam date and time: 12/03/2023 6:25 PM Age: 73 years old Clinical indication: Dizziness and giddiness; Additional info: Persistent dizziness and anisocoria TECHNIQUE: Imaging protocol: Computed tomographic angiography of the head with contrast. Exam focused on the arteries. 3D rendering (Not supervised by radiologist): MIP and/or 3D reconstructed images were created by the technologist. Radiation optimization: All CT scans at this facility use at least one of these dose optimization techniques: automated exposure control; mA and/or kV adjustment per patient size (includes targeted exams where dose is matched to clinical indication); or iterative reconstruction. Contrast material: ISOVUE 370; Contrast volume: 100 ml; Contrast route: INTRAVENOUS (IV); COMPARISON: CT HEAD/BRAIN WO CON 12/03/2023 6:25 PM FINDINGS: ANTERIOR CIRCULATION: Right internal carotid artery: Intracranial segment is patent with no significant stenosis. No aneurysm. Right middle cerebral artery: No occlusion or significant stenosis. No aneurysm. Right anterior cerebral artery: No occlusion or significant stenosis. No aneurysm. Left internal carotid artery: Intracranial segment is patent with no significant stenosis. No aneurysm. Left middle cerebral artery: No occlusion or significant stenosis. No aneurysm. Left anterior cerebral artery: No occlusion or significant stenosis. No aneurysm. POSTERIOR CIRCULATION: Right vertebral artery: No occlusion or significant stenosis. No aneurysm. Left vertebral artery: No occlusion or significant stenosis. No aneurysm. Basilar artery: No occlusion or significant stenosis. No aneurysm. Right posterior cerebral artery: No occlusion or significant stenosis. No aneurysm. Left posterior cerebral artery: No occlusion or significant stenosis. No aneurysm. Brain: No definite mass, mass effect, or midline shift. Cerebral ventricles: No ventriculomegaly. Bones/joints: Unremarkable. No acute fracture. Soft tissues: Unremarkable. IMPRESSION: No large vessel stenosis or occlusion.
--- NOTE | 2023-12-03 17:51 | CT_ITS ---
PROCEDURE INFORMATION: Exam: CT Head Without Contrast Exam date and time: 12/03/2023 6:25 PM Age: 73 years old Clinical indication: Dizziness; Additional info: Persistent dizziness and anisocoria TECHNIQUE: Imaging protocol: Computed tomography of the head without contrast. Radiation optimization: All CT scans at this facility use at least one of these dose optimization techniques: automated exposure control; mA and/or kV adjustment per patient size (includes targeted exams where dose is matched to clinical indication); or iterative reconstruction. COMPARISON: CT HEAD/BRAIN WO CON 02/26/2022 2:52 PM FINDINGS: Brain: There are severe bilateral periventricular low-attenuation white matter foci consistent with cerebral chronic small vessel disease. Cerebral ventricles: No ventriculomegaly. Paranasal sinuses: Mild mucosal thickening within the left frontal sinus. Mastoid air cells: Visualized mastoid air cells are well aerated. Bones: Unremarkable. No acute fracture. Soft tissues: Unremarkable. IMPRESSION: 1. No acute abnormalities are identified. 2. Senescent changes within the brain as discussed.
--- NOTE | 2023-12-03 17:52 | ECG_ITS ---
APPROVED REPORT Exam: Resting ECG HR:65 bpm ECG Measurements Heart Rate 65 AXES ND 201 P 78 QRSd 95 QRS -78 QT 426 T 74 QTc 437 Conclusion SINUS RHYTHM PATTERN CONSISTENT WITH PULMONARY DISEASE INCOMPLETE RIGHT BUNDLE BRANCH BLOCK [90+ ms QRS DURATION, TERMINAL R IN V1/V2, 40+ ms S IN I/aVL/V4/V5/V6] LEFT ANTERIOR FASCICULAR BLOCK [QRS AXIS <= -45, QR IN I, RS IN II] ABNORMAL ECG UNCONFIRMED REPORT Electronically signed by : GARRETT REGAN, 12/04/2023 06:50:43
[2023-12-03 18:02] LABS: Basophils # 0.1 K/mm3 (0-0.2); Basophils % 0.9 % (0.1-2.0); Eosinophils # 0.4 K/mm3 (0.0-0.4); Hematocrit 37.9 % (37.0-47.0); Hemoglobin 12.9 g/dL (12.2-16.2); Lymphocytes % 29.3 % (10-50); Mean Corpuscular Hemoglobin 32.3 pg (27.0-31.2); Mean Corpuscular Volume 95.1 fl (81-99); Mean Platelet Volume 7.8 fl (7.4-10.4); Monocytes # 0.4 K/mm3 (0.1-1.0); Monocytes % 6.2 % (1.7-9.3); Neutrophils # 3.8 K/mm3 (1.8-7.8); Neutrophils % 57.6 % (37.0-80.0); Platelet Count 170 K/mm3 (142-424); Red Blood Count 3.99 M/mm3 (4.20-5.40); Red Cell Distribution Width 14.3 % (11.5-17.5); White Blood Count 6.7 K/mm3 (4.8-10.8)
--- NOTE | 2023-12-03 18:04 | ED_ITS ---
Discharge Plan Disposition Patient Disposition: Home, Self-Care Prescriptions Prescriptions: New cefdinir 300 mg capsule 300 mg PO BID 5 Days Qty: 10 0RF No Action losartan 100 mg tablet 100 mg PO DAILY mirtazapine 30 mg tablet 30 mg PO DAILY Patient Comments: TAKE 1 TABLET BY MOUTH EVERY NIGHT AT BEDTIME insulin glargine [Basaglar KwikPen U-100 Insulin] 100 unit/mL (3 mL) insulin pen 30 unit SQ HS simvastatin 20 MG tablet 20 mg PO HS metformin 1,000 MG tablet 1,000 mg PO BIDWMEAL montelukast 10 MG tablet 10 mg PO PM glipizide 10 MG tablet extended release 24hr 10 mg PO DAILY metoprolol tartrate 25 MG tablet 25 mg PO DAILY fluoxetine 10 mg capsule 10 mg PO DAILY Patient Comments: TAKE 1 CAPSULE (10 MG) IN THE MORNING WITH 20MG CAPSULE FOR TOTAL DOSE OF 30MG levothyroxine 200 mcg tablet 200 mcg PO DAILY Patient Comments: TAKE 1 TABLET BY MOUTH ONCE DAILY ON AN EMPTY STOMACH 60 MINUTES BEFORE BREAKFAST fluoxetine 20 mg capsule 20 mg PO DAILY Patient Comments: TAKE 1 CAPSULE (20 MG) IN THE MORNING WITH 10MG TAB FOR TOTAL DOSE OF 30MG lamotrigine 100 mg tablet 100 mg PO DAILY Patient Comments: TAKE 1 TABLET BY MOUTH EVERY DAY hydroxyzine pamoate 25 mg capsule 25 - 50 mg PO Q6HP PRN (Reason: Anxiety) Patient Comments: TAKE 1-2 CAPSULES (25-50 MG) BY MOUTH EVERY 6 HOURS NEEDED FOR ANXIETY OR INSOMNIA Referrals Follow up/Referrals: Radha Tapia [Primary Care Provider] - See instructions Zbigniew Zaragoza PT [Physical Therapist] - See instructions (Vestibular therapy) Thelma Rivas MD [Staff Physician] - See instructions Activity Restrictions/Add. Instructions Additional Instructions/Restrictions: Call your family doctor to establish care for this visit to the emergency department and schedule follow-up within 48 hours to ensure improvement. If you have any worsening of your condition or any other concerning signs or symptoms, return to the emergency department or your primary care doctor for further evaluation. Take antibiotic twice daily for 5 days to treat UTI Clinical Impressions Clinical Impression: Acute UTI, Dizziness Instructions Patient Instructions: DI for Diarrhea and Traveler's Diarrhea -- Adult, DI for Diarrhea and Traveler's Diarrhea -- Child, DI for Nausea -- Adult, DI for Nausea -- Child Discharge ED Provider: Loulou,Ross A General Adult HPI General Chief complaint: Nausea/Vomiting/Diarrhea Stated complaint: low O2, weak, dizzy, abd pain Time Seen by Provider: 12/03/23 17:51 Mode of Arrival: Wheelchair Source of Information: Patient and Relative Limitations: No Limitations Description of Symptoms (Recalled from ER Triage Doc. by RN): pt presents to ED with c/o dizziness, nausea since wednesday. History of Present Illness HPI narrative: Please note that above description of symptoms, in this electronic medical record under categorization of recalled from ER triage doctor by RN are reflective of an initial nursing assessment, however, is not reflective of my full history and physical exam that was personally taken and clarified. Consequentially, this preceding description of symptoms, which may include the patient's categorized chief complaint in the EMR, do not reflect my personal clinical impression, and the ultimate description of history of present illness and patient stated complaints should be deferred to this section of the note. Unless stated otherwise or congruent with this section of the note, additional signs, symptoms, or incongruence should be interpreted as inaccurate with my clinical impression. Related Data Home Medications Medication Instructions Recorded Confirmed metformin 1,000 mg tablet 1,000 mg PO BIDWMEAL Diabetes 11/16/18 02/17/23 montelukast 10 mg tablet 10 mg PO PM allergies 11/16/18 02/17/23 simvastatin 20 mg tablet 20 mg PO HS Cholesterol 11/16/18 02/17/23 glipizide 10 mg tablet, extended 10 mg PO DAILY Diabetes 11/07/19 02/17/23 release 24 hr metoprolol tartrate 25 mg tablet 25 mg PO DAILY Hypertension 11/07/19 02/17/23 fluoxetine 10 mg capsule 10 mg PO DAILY MOOD 02/27/22 02/17/23 fluoxetine 20 mg capsule 20 mg PO DAILY MOOD 02/27/22 02/17/23 hydroxyzine pamoate 25 mg capsule 25 - 50 mg PO Q6HP PRN Anxiety 02/27/22 02/17/23 lamotrigine 100 mg tablet 100 mg PO DAILY SEIZURES 02/27/22 02/17/23 levothyroxine 200 mcg tablet 200 mcg PO DAILY THYROID 02/27/22 02/17/23 insulin glargine 100 unit/mL (3 30 unit SQ HS Diabetes 02/17/23 02/17/23 mL) subcutaneous pen (Basaglar KwikPen U-100 Insulin) losartan 100 mg tablet 100 mg PO DAILY HTN 02/17/23 02/17/23 mirtazapine 30 mg tablet 30 mg PO DAILY appetite 02/17/23 02/17/23 Previous Rx's Medication Instructions Recorded cefdinir 300 mg capsule 300 mg PO BID 5 days #10 caps 12/03/23 Allergies Allergy/AdvReac Type Severity Reaction Status Date / Time No Known Allergies Allergy Verified 02/17/23 09:40 [facility] Disclaimer: The information contained in this section may have been updated after the patient was seen, as this information can be updated by other users. Medical History (Updated 12/03/23 @ 19:49 by Salvatore Jaiml MD) Anxiety Bipolar 1 disorder History of seizures Hypertension Mixed hyperlipidemia History of mastoiditis Vertigo Diabetes Postsurgical fever Hypothyroidism Surgical History History of tubal ligation History of colonoscopy History of cholecystectomy Family History Other COPD (chronic obstructive pulmonary disease) Cancer Hypertension Social History Smoking Status: Former smoker second hand exposure: Yes alcohol intake: never substance use type: marijuana current occupational status: retired Travel in the last 8 weeks: None household members: none housing: house 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 current occupational exposures/hazards: No caffeine: Yes ROS Obtained: Yes All systems reviewed & no additional complaints except as documented Physical Exam General General appearance: alert and in no apparent distress Head Head exam: atraumatic and normocephalic Eye Eye exam: Present normal appearance, PERRL, EOMI and nystagmus (Fast beat nystagmus rightward) ENT ENT exam: Present mucous membranes moist Neck Neck exam: Present normal inspection, full ROM and trachea midline Respiratory Respiratory exam: Present normal lung sounds bilaterally; Absent respiratory distress, wheezes, stridor, accessory muscle use or prolonged expiratory phase Cardiovascular Cardiovascular exam: Present regular rate, normal rhythm and systolic murmur Abdominal Exam Abdominal exam: Present soft; Absent distention, tenderness, guarding, rebound or rigidity Extremities Exam Extremities exam: Present normal inspection; Absent edema Neurological Exam Neurological exam: Present alert, oriented X3, CN II-XII intact and other (Some difficulty on [id number] testing right lower extremity on keeping right heel on tibia. Minimal deviation); Absent motor sensory deficit Skin Skin exam: Present warm and dry; Absent diaphoresis or erythema Medical Decision Making Medical Records Medical records reviewed: Yes I reviewed the patient's medical records. Binu Inquiry Pt receiving controlled substance: No Binu was queried for this patient: No Vital Signs: 12/03/23 17:46 12/03/23 17:55 12/03/23 18:00 Temperature 97.8 F Temperature Source Oral Pulse Rate 66 66 Pulse Rate [Left Radial] 65 Respiratory Rate 13 Blood Pressure 163/74 H 186/84 H Blood Pressure [Right Arm] 161/80 H Blood Pressure Mean [Right Arm] 107 02 Sat by Pulse Oximetry 90 L 93 L 93 L Oxygen Delivery Method Room Air Room Air Room Air 12/03/23 18:31 Temperature Temperature Source Pulse Rate 67 Pulse Rate [Left Radial] Respiratory Rate 20 Blood Pressure 186/84 H Blood Pressure [Right Arm] Blood Pressure Mean [Right Arm] 02 Sat by Pulse Oximetry 95 Oxygen Delivery Method Room Air Lab Data Lab Results 12/03/23 17:50: WBC 6.7, RBC 3.99 L, Hgb 12.9, Hct 37.9, MCV 95.1, MCH 32.3 H, MCHC 34.0, RDW 14.3, Plt Count 170, MPV 7.8, Neut % (Auto) 57.6, Lymph % (Auto) 29.3, [place] % (Auto) 6.2, Eos % (Auto) 6.0, Baso % (Auto) 0.9, Neut # (Auto) 3.8, Lymph # (Auto) 2.0, [place] # (Auto) 0.4, Eos # (Auto) 0.4, Baso # (Auto) 0.1, PT 11.3, INR 1.01, APTT 26.6, Sodium 137, Potassium 4.2, Chloride 100, Carbon Dioxide 31 H, Anion Gap 10.2, BUN 12, Creatinine 0.90, Estimated Creat Clear 56, Estimated GFR 61, Est GFR ( Amer) 74, Glucose 210 H, Calcium 9.2, Total Bilirubin 0.5, AST 30, ALT 18, Alkaline Phosphatase 59, Troponin I < 0.01, Total Protein 7.5, Albumin 4.1, Globulin 3.4 H, Albumin/Globulin Ratio 1.2, T riglycerides 243 H, Cholesterol 140, LDL Cholesterol Direct 75.69 L, VLDL Cholesterol 49 H, HDL Cholesterol 28 L, Cholesterol/HDL Ratio 5.0 H 12/03/23 17:59: VBG pH 7.31, VBG pCO2 52.5 H, VBG pO2 31.9, VBG HCO3 26.0, VBG Total CO2 27.6 H, VBG O2 Saturation 57.2, VBG Base Excess -0.3, VBG Lactic Acid 1.8 12/03/23 18:14: Urine Color Yellow, Urine Appearance Cloudy, Urine pH 6.0, Ur Specific [place] >= 1.030, Urine Protein 2+, Urine Glucose (UA) Negative, Urine Ketones Negative, Urine Blood 3+, Urine Nitrate Negative, Urine Bilirubin 1+ A, Urine Urobilinogen 1.0, Ur Leukocyte Esterase 2+ A, Urine RBC Occasional, Urine WBC 50-100, Ur Squamous Epith Cells 3-5, Urine Bacteria 2+ 12/03/23 17:50 12/03/23 17:50 Orders (Tests/Meds): ED MEDICATIONS Generic Name Dose Route Start Last Admin Trade Name Freq PRN Reason Stop Dose Admin Ceftriaxone Sodium 1 gm/ 50 mls @ 100 mls/hr 12/03/23 19:15 12/03/23 19:02 Sodium Chloride IV 12/13/23 19:14 100 mls/hr Q24H DONAVAN Administration Sodium Chloride 10 ml 12/03/23 17:51 Sodium Chloride 0.9% 10ml Flush Syringe IV 01/02/24 17:50 NEEDED PRN Maintain IV Site Sodium Chloride 10 ml 12/03/23 18:24 12/03/23 18:25 Sodium Chloride 0.9% 10ml Syr (Rad Only) IV 01/02/24 18:23 10 ml NEEDED PRN Administration Maintain IV Site Discontinued Medications Generic Name Dose Route Start Last Admin Trade Name Freq PRN Reason Stop Dose Admin Ceftriaxone Sodium 1 gm/ 50 mls @ 100 mls/hr 12/03/23 18:54 12/03/23 19:02 Sodium Chloride IV 12/03/23 19:23 Not Given ONCE ONE Iopamidol 100 ml 12/03/23 18:24 12/03/23 18:25 Iopamidol-370 (76%);100ml Bottle IV 12/03/23 18:25 100 ml ONCE ONE Administration Sodium Chloride 50 ml 12/03/23 18:24 12/03/23 18:24 0.9 % Sodium Chloride 50 Ml Vial IV 12/03/23 18:25 50 ml ONCE ONE Administration ORDERS Category Date Time Status CT angio head Stat Cat Scan 12/03/23 17:[address] angio neck Routine Cat Scan 12/03/[address] head/brain wo con Stat Cat Scan 12/03/23 17:51 Taken Activated Partial Thrombo Time Stat Lab 12/03/23 17:50 Completed Complete Blood Count Auto Diff Stat Lab 12/03/23 17:50 Completed Comprehensive Metabolic Panel Stat Lab 12/03/23 17:50 Completed Lipid Panel Stat Lab 12/03/23 17:50 Completed Prothrombin Time INR Stat Lab 12/03/23 17:50 Completed Troponin I Q3H Lab 12/03/23 21:00 Ordered Troponin I Q3H Lab 12/04/23 00:00 Ordered Troponin I Stat Lab 12/03/23 17:50 Completed Urinalysis and Microscopic Stat Lab 12/03/23 18:14 Completed Urine Culture Stat Micro 12/03/23 18:14 Received VBG [Venous Blood Gas] Stat RT 12/03/23 17:59 Completed Medical Decision Narrative: 73-year-old female history of hypertension, hyperlipidemia, anxiety, positional vertigo, hypothyroidism presenting with concern for persistent dizziness from primary care physician's office. Patient states that for the past 3 to 4 days, she has been persistently dizzy. Usually her dizziness goes away. It is worse with changes in head movement, changes in position, better at rest, but still persistent despite improvement. Patient states that she feels she has been having more difficulty walking and more nausea secondary to the vomiting. After being prompted, she states she thinks she falls to the right side more commonly than the left. Unsure whether or not this is normal for her. No chest pain, shortness of breath, fevers or chills, vision changes, other strokelike symptoms, or any other concerns. History was obtained via conversation with patient and sister. On arrival, patient hemodynamically stable, alert, oriented x4, appropriate, GCS 15, moving all extremities spontaneously, pupils equal and reactive to light. Full physical exam performed and significant for NIHSS 0. Neuroexam significant only for right beating horizontal nystagmus and very slight deviation from midline on right lower extremity [id number] testing. Right upper extremity normal. Right upper sternal border systolic ejection murmur, likely aortic stenosis. No lower extremity edema, pulses equal and symmetric in upper and lower extremities. Differential includes dehydration, embolic stroke, hemorrhagic stroke, critical vascular stenosis, arrhythmia, among others. Workup independently interpreted and significant for nonactionable CBC or chemistry. Troponin negative. Urinalysis with concern for UTI. CT head without acute hemorrhage. CTA head and neck with distal right P3 segment narrowing, but no acute occlusion. See radiology read for full review of final results. Independent interpretation of EKG shows sinus rhythm 65 beats a minute without ST or T wave changes concerning for acute ischemia. VT 201, QRS 95, QTc 437. [place] rightward. Incomplete right bundle branch block morphology present. Patient was given 325 mg aspirin. Conversation was had with patient regarding admission for physical therapy and Occupational Therapy versus home-going with adding aspirin to her medication therapy and following up with neurology. She is opting for home-going at this time. I feel this is appropriate. I had a conversation with neurosurgery at [facility], recommended medical management as well. Because patient at baseline without signs or symptoms of clinical decompensation, deemed appropriate for discharge. Results were relayed to patient who voiced understanding and were agreeable to outpatient management and follow up. I discussed my clinical impression with patient and answered all questions. At this time, the evidence for any other entities in the differential is insufficient to warrant any further testing or ED observation. This was explained as well. Advisory was given that persistent or worsening symptoms require further evaluation. I confirmed the understanding of this discussion. [employer] disclaimer Much of this encounter note is an electronic time study engineer spoken language to printed text. Electronic time study engineer of the spoken language may permit errors. Although I have reviewed the note, some errors may still exist. Critical Care Critical Care Time Critical Care Time: No
[2023-12-03 18:05] LABS: Chloride 100 mmol/L (98-107)
[2023-12-03 18:06] LABS: Potassium 4.2 mmoL/L (3.5-5.1); Sodium 137 mmol/L (136-145)
[2023-12-03 18:07] LABS: Lactate Venous 1.8 mmol/L (0.4-2.0); VBG Base Excess -0.3 mmol/L (-2.4-2.3); VBG Oxygen Saturation 57.2 % (50-70); VBG PH 7.31 mmol/L (7.31-7.41); VBG PO2 31.9 mmol/L (28-40); VBG Total CO2 27.6 mmol/L (23-27)
[2023-12-03 18:08] LABS: Alanine Aminotransferase 18 U/L (12-78); Alkaline Phosphatase 59 U/L (38-126); Aspartate Amino Transferase 30 U/L (14-36); Bilirubin,Total 0.5 mg/dl (0.2-1.3); Blood Urea Nitrogen 12 mg/dl (7-17); Creatinine Clearance Estimated 56 mL/min (50-200); Estimated Glomerular Filt Rate 61 ml/min (>60); GFR (African American) 74 ML/MIN (>60)
[2023-12-03 18:08] LABS: VBG PCO2 52.5 mmol/L (35-51)
[2023-12-03 18:09] LABS: Albumin Level 4.1 g/dl (3.5-5.0); Albumin/Globulin Ratio 1.2 (1.1-1.8); Anion Gap 10.2 mEq/L (5-15); Calcium 9.2 mg/dl (8.4-10.2); Carbon Dioxide 31 mmol/L (22.0-30.0); Cholesterol 140 mg/dl (140-200); Globulin 3.4 g/dL (1.3-3.2); Glucose 210 mg/dl (74-100); HDL Cholesterol 28 mg/dl (40-60); Total Protein,Serum 7.5 g/dl (6.3-8.2); Triglycerides 243 mg/dl (30-150); VLDL Cholesterol 49 mg/dL (0-40)
[2023-12-03 18:13] LABS: Activated Partial Thrombo Time 26.6 seconds (22.8-30.6); INR 1.01 (0.9-1.1); Prothrombin Time 11.3 seconds (10.1-12.5)
[2023-12-03 18:20] LABS: Direct LDL Cholesterol 75.69 mg/dL (100-129)
[2023-12-03 18:23] LABS: Troponin I < 0.01 ng/ml (0.00-0.034)
[2023-12-03 18:24] LABS: Microscopic, Urine URINE MICROSCOPIC (MICROSCOPIC)
[2023-12-03] MEDS: 0.9 % SODIUM CHLORIDE 50 ML VIAL IV (18:24)
[2023-12-03] MEDS: IOPAMIDOL-370 (76%);100ML BOTTLE 100 ML IV (18:25)
[2023-12-03] MEDS: SODIUM CHLORIDE 0.9% 10ML SYR (RAD ONLY) 10 ML IV (18:25)
--- NOTE | 2023-12-03 18:30 | PC.NURSE ---
Pt back in room from CT
[2023-12-03 18:36] LABS: Blood, Urine 3+ (Negative); Color,Urine YELLOW (Yellow); Glucose,Urine (UA) Negative (Negative); Ketones,Urine Negative (Negative); Leukocyte Esterase,Urine 2+ (Negative); Nitrate,Urine Negative (Negative); Protein,Urine 2+ (Negative); Specific Gravity, Urine >= 1.030 (1.005-1.030)
[2023-12-03 18:48] LABS: Bilirubin,Urine 1+ (Negative)
[2023-12-03 18:49] LABS: Appearance,Urine Cloudy (Clear)
[2023-12-03] MEDS: CEFTRIAXONE 1 GM 1 GM in 0.9 % SODIUM CHLORIDE 50 ML IV (19:02)
[2023-12-03 19:06] LABS: Bacteria,Urine 2+ /lpf; RBC,Urine Occasional #/hpf (0-3); WBC,Urine 50-100 #/hpf (0-3)
--- NOTE | 2023-12-03 19:25 | PC.NURSE ---
Rounds completed on patient per TRN. Introduced self and updated on status of imaging. Informed that CTs are sent to radiologist and awaiting reads at this time. Informed that once imaging is read, doctor will be in to update on plan of care. Family and patient VU.
[2023-12-03] MEDS: ASPIRIN 325MG TABLET 325 MG PO (19:50)
--- NOTE | 2023-12-07 18:29 | PC.NURSE ---
urine culture discussed with , pt dc with cefdirin. NTD
== END 2023-12-03 19:55 | disposition home or self-care (01) ==
PROVIDERS: Emergency Provider Emergency Medicine; PCP Nurse Practitioner Family
DX: N39.0 Urinary tract infection, site not specified (principal); B96.4 Proteus (mirabilis) (morganii) as the cause of diseases classified elsewhere; B95.2 Enterococcus as the cause of diseases classified elsewhere; R42 Dizziness and giddiness; R11.0 Nausea; I10 Essential (primary) hypertension; E78.5 Hyperlipidemia, unspecified; E11.9 Type 2 diabetes mellitus without complications; E03.9 Hypothyroidism, unspecified; Z79.4 Long term (current) use of insulin; Z79.84 Long term (current) use of oral hypoglycemic drugs
CPT/HCPCS: 70450; 70496; 70498; 80053; 80061; 81001; 82803; 84484; 85025; 85610; 85730; 87086; 87088; 87186; 93005; 96365; 99285; J0696; Q9967

== ENCOUNTER 2023-12-26 09:55 | Emergency (ER) | payer MEDICARE, OTHER, SELFPAY ==
[2023-12-26] VITALS (9 sets, daily range): BP systolic 144–202; BP diastolic 62–96; PULSE 54–72; RESP 13–16; TEMP 36.6; O2SAT 93–96; BMI 34.8
--- NOTE | 2023-12-26 10:02 | ECG_ITS ---
APPROVED REPORT Exam: Resting ECG HR:57 bpm ECG Measurements Heart Rate 57 AXES ID 214 P 76 QRSd 94 QRS -76 QT 439 T 58 QTc 434 Conclusion SINUS BRADYCARDIA WITH FIRST DEGREE AV BLOCK PATTERN CONSISTENT WITH PULMONARY DISEASE LEFT ANTERIOR FASCICULAR BLOCK [QRS AXIS <= -45, QR IN I, RS IN II] ABNORMAL ECG Electronically signed by : DISHA REYES, 12/26/2023 14:18:22
--- NOTE | 2023-12-26 10:19 | CT_ITS ---
PROCEDURE INFORMATION: Exam: CTA Chest With Contrast Exam date and time: 12/26/2023 11:02 AM Age: 73 years old Clinical indication: Cough; Additional info: Cough, SOA TECHNIQUE: Imaging protocol: Computed tomographic angiography of the chest with contrast. Exam focused on the arteries. 3D rendering (Not supervised by radiologist): MIP and/or 3D reconstructed images were created by the technologist. Radiation optimization: All CT scans at this facility use at least one of these dose optimization techniques: automated exposure control; mA and/or kV adjustment per patient size (includes targeted exams where dose is matched to clinical indication); or iterative reconstruction. Contrast material: ISOVUE 370; Contrast volume: 75 ml; Contrast route: INTRAVENOUS (IV); COMPARISON: CT ANGIO CHEST PE PROTOCOL 02/26/2022 2:56 PM FINDINGS: Pulmonary arteries: Enlargement of the main pulmonary artery. Clinically correlate regarding pulmonary arterial hypertension. Findings unchanged. Prominence of the right main pulmonary artery again demonstrated. There is suboptimal opacification of pulmonary arteries due to contrast bolus timing. Aorta: Regions of atherosclerotic vascular calcification involving the aortic arch. Aneurysmal dilatation of the ascending aorta measuring up to 4 cm. Findings stable. Lungs: Bilateral ground-glass regions of opacification. Findings nonspecific however most likely reflect interstitial lung disease. Findings not significantly changed. Bibasilar atelectasis versus parenchymal scarring. Pleural spaces: Unremarkable. No pneumothorax. No pleural effusion. Heart: Unremarkable. No cardiomegaly. No pericardial effusion. Coronary arteries: No evidence of coronary artery calcification Lymph nodes: Calcified hilar lymph nodes Bones/joints: Unremarkable. No acute fracture. Soft tissues: Unremarkable. IMPRESSION: 1. No large or central pulmonary embolus. Evaluation of the peripheral pulmonary arteries is limited. 2. Aneurysmal dilatation of the ascending aorta measuring up to 4 cm. Findings stable. 3. Bilateral ground-glass regions of opacification. Findings nonspecific however most likely reflect interstitial lung disease. Findings not significantly changed.
--- NOTE | 2023-12-26 10:19 | CT_ITS ---
PROCEDURE INFORMATION: Exam: CT Abdomen And Pelvis With Contrast Exam date and time: 12/26/2023 11:02 AM Age: 73 years old Clinical indication: Nausea and vomiting; Additional info: Abdominal pain/nausea/vomiting TECHNIQUE: Imaging protocol: Computed tomography of the abdomen and pelvis with contrast. Radiation optimization: All CT scans at this facility use at least one of these dose optimization techniques: automated exposure control; mA and/or kV adjustment per patient size (includes targeted exams where dose is matched to clinical indication); or iterative reconstruction. Contrast material: ISOVUE; Contrast volume: 75 ml; Contrast route: IV; COMPARISON: MR ABDOMEN WO/W CON 12/10/2022 7:43 AM FINDINGS: Lungs: Bibasilar atelectasis versus parenchymal scarring. Liver: Decreased density throughout the liver compatible with hepatic steatosis. Subtle nodularity of the hepatic contour. Findings suggestive of cirrhosis. Persistent partially enhancing 13 mm lesion left hepatic lobe. Findings most compatible with a hemangioma. Gallbladder and biliary ducts: Cholecystectomy Pancreas: Pancreas unremarkable. Spleen: The spleen is unremarkable. Adrenal glands: Adrenal glands unremarkable. Kidneys and ureters: No hydronephrosis. Stomach and bowel: Colonic diverticulosis. No evidence of diverticulitis. Apparent wall thickening in the colon may be secondary to incomplete filling versus mild colitis. Clinically correlate. Appendix: No evidence of appendicitis. Intraperitoneal space: Mild stranding of the mesenteric fat at the root of the mesentery. Findings nonspecific, however may be inflammatory in etiology. Vasculature: Scattered regions of atherosclerotic vascular calcification within the abdominal aorta and common iliac arteries. Lymph nodes: The persistent retroperitoneal as well as scattered mesenteric lymph nodes. No evidence of enlargement compared with the previous study. Urinary bladder: Unremarkable as visualized. Reproductive: Unremarkable as visualized. Bones/joints: Lumbar spondylosis with multilevel disc degeneration. Soft tissues: Fat filled inguinal hernias. IMPRESSION: 1. Apparent wall thickening in the colon may be secondary to incomplete filling versus mild colitis. Clinically correlate. 2. Persistent retroperitoneal as well as scattered mesenteric lymph nodes. No evidence of enlargement compared with the previous study. 3. Please see above report for discussion of faye the mary jane douglass findings.
--- NOTE | 2023-12-26 10:19 | CT_ITS ---
PROCEDURE INFORMATION: Exam: CT Head Without Contrast Exam date and time: 12/26/2023 10:54 AM Age: 73 years old Clinical indication: Other: Vertigo; Additional info: Vertigo, R hand tingling TECHNIQUE: Imaging protocol: Computed tomography of the head without contrast. Radiation optimization: All CT scans at this facility use at least one of these dose optimization techniques: automated exposure control; mA and/or kV adjustment per patient size (includes targeted exams where dose is matched to clinical indication); or iterative reconstruction. COMPARISON: CT HEAD/BRAIN WO CON 12/03/2023 6:25 PM FINDINGS: Brain: Periventricular white matter tract changes demonstrated. Mild-moderate prominence of the cortical sulci. Basal ganglia calcifications again demonstrated. Cerebral ventricles: No ventriculomegaly. Paranasal sinuses: Visualized sinuses are unremarkable. No fluid levels. Mastoid air cells: Visualized mastoid air cells are well aerated. Bones: Unremarkable. No acute fracture. Soft tissues: Unremarkable. IMPRESSION: No evidence of acute intracranial abnormality.
--- NOTE | 2023-12-26 10:19 | CT_ITS ---
PROCEDURE INFORMATION: Exam: CTA Neck With Contrast Exam date and time: 12/26/2023 10:57 AM Age: 73 years old Clinical indication: Vertigo; Additional info: Vertigo, R hand tingling TECHNIQUE: Imaging protocol: Computed tomographic angiography of the neck with contrast. Exam focused on the cervical segments of the vasculature. 3D rendering (Not supervised by radiologist): MIP and/or 3D reconstructed images were created by the technologist. Radiation optimization: All CT scans at this facility use at least one of these dose optimization techniques: automated exposure control; mA and/or kV adjustment per patient size (includes targeted exams where dose is matched to clinical indication); or iterative reconstruction. Contrast material: ISOVUE 370; Contrast volume: 100 ml; Contrast route: INTRAVENOUS (IV); COMPARISON: CT ANGIO NECK 12/03/2023 6:25 PM FINDINGS: Right common carotid artery: 50% short-segment stenosis in the distal common carotid artery proximally 3 cm proximal to the bifurcation. No dissection or occlusion. Right internal carotid artery: Prominent atherosclerotic calcification at the bifurcation. Less than 50% stenosis of the proximal extracranial segment. No dissection or occlusion. Right external carotid artery: No occlusion or stenosis of the origin. Left common carotid artery: 50% short-segment stenosis in the distal common carotid artery, approximately 3 cm proximal to the bifurcation. No dissection or occlusion. Left internal carotid artery: Prominent atherosclerotic calcification at the bifurcation. Less than 50% stenosis of the proximal extracranial segment. No dissection or occlusion. Left external carotid artery: No occlusion or stenosis of the origin. Right vertebral artery: No stenosis. No dissection or occlusion. Left vertebral artery: No stenosis. No dissection or occlusion. Soft tissues: Normal. No significant soft tissue swelling. Bones/joints: No acute fracture. IMPRESSION: 50% short-segment stenosis in the distal common carotid arteries bilaterally. Less than 50% stenosis in the internal carotid arteries bilaterally. REFERENCES: NASCET CRITERIA. The degree of stenosis in the cervical segment of the internal carotid artery is based on NASCET criteria. Normal is no stenosis. Mild is less than 50% stenosis. Moderate is 50-69% stenosis. Severe is 70% to 99% stenosis. Total occlusion is no detectable patent lumen.
--- NOTE | 2023-12-26 10:19 | CT_ITS ---
PROCEDURE INFORMATION: Exam: CTA Head With Contrast, Arteriography Exam date and time: 12/26/2023 10:57 AM Age: 73 years old Clinical indication: Vertigo; Additional info: Vertigo, R hand tingling TECHNIQUE: Imaging protocol: Computed tomographic angiography of the head with contrast. Exam focused on the arteries. 3D rendering (Not supervised by radiologist): MIP and/or 3D reconstructed images were created by the technologist. Radiation optimization: All CT scans at this facility use at least one of these dose optimization techniques: automated exposure control; mA and/or kV adjustment per patient size (includes targeted exams where dose is matched to clinical indication); or iterative reconstruction. Contrast material: ISOVUE 370; Contrast volume: 100 ml; Contrast route: INTRAVENOUS (IV); COMPARISON: CT ANGIO HEAD 12/03/2023 6:25 PM FINDINGS: ANTERIOR CIRCULATION: Right internal carotid artery: Intracranial segment is patent with no significant stenosis. No aneurysm. Right middle cerebral artery: No occlusion or significant stenosis. No aneurysm. Right anterior cerebral artery: No occlusion or significant stenosis. No aneurysm. Left internal carotid artery: Intracranial segment is patent with no significant stenosis. No aneurysm. Left middle cerebral artery: No occlusion or significant stenosis. No aneurysm. Left anterior cerebral artery: No occlusion or significant stenosis. No aneurysm. POSTERIOR CIRCULATION: Right vertebral artery: No occlusion or significant stenosis. No aneurysm. Left vertebral artery: No occlusion or significant stenosis. No aneurysm. Basilar artery: No occlusion or significant stenosis. No aneurysm. Right posterior cerebral artery: No occlusion or significant stenosis. No aneurysm. Left posterior cerebral artery: No occlusion or significant stenosis. No aneurysm. Brain: No definite mass, mass effect, or midline shift. Microangiopathic ischemic changes. No acute hemorrhage. Cerebral ventricles: No ventriculomegaly. Bones/joints: Unremarkable. No acute fracture. Soft tissues: Unremarkable. IMPRESSION: No large vessel stenosis or occlusion.
[2023-12-26 10:30] LABS: Basophils # 0.1 K/mm3 (0-0.2); Basophils % 1.3 % (0.1-2.0); Eosinophils # 0.3 K/mm3 (0.0-0.4); Eosinophils % 5.5 % (0.1-12.0); Hematocrit 39.3 % (37.0-47.0); Hemoglobin 13.2 g/dL (12.2-16.2); Lymphocytes # 2.3 K/mm3 (0.7-4.5); Lymphocytes % 37.3 % (10-50); Mean Corpuscular HGB Conc 33.6 g/dL (31.8-35.4); Mean Corpuscular Volume 95.2 fl (81-99); Mean Platelet Volume 7.4 fl (7.4-10.4); Monocytes # 0.5 K/mm3 (0.1-1.0); Monocytes % 7.7 % (1.7-9.3); Neutrophils % 48.3 % (37.0-80.0); Platelet Count 145 K/mm3 (142-424); Red Blood Count 4.13 M/mm3 (4.20-5.40); White Blood Count 6.1 K/mm3 (4.8-10.8)
[2023-12-26] MEDS: ONDANSETRON 4MG/2ML VIAL 4 MG IV (10:31)
[2023-12-26] MEDS: ACETAMINOPHEN 1,000MG/100ML VIAL 1000 MG IV (10:31)
[2023-12-26] MEDS: LACTATED RINGERS 1000ML 1,000 ML 999 ML IV (10:31)
[2023-12-26 10:36] LABS: Chloride 107 mmol/L (98-107); Sodium 141 mmol/L (136-145)
[2023-12-26 10:37] LABS: Potassium 4.4 mmoL/L (3.5-5.1)
[2023-12-26 10:39] LABS: Alanine Aminotransferase 20 U/L (12-78); Albumin Level 3.9 g/dl (3.5-5.0); Albumin/Globulin Ratio 1.3 (1.1-1.8); Alkaline Phosphatase 50 U/L (38-126); Anion Gap 9.4 mEq/L (5-15); Aspartate Amino Transferase 32 U/L (14-36); Bilirubin,Total 0.6 mg/dl (0.2-1.3); Blood Urea Nitrogen 15 mg/dl (7-17); Calcium 9.3 mg/dl (8.4-10.2); Carbon Dioxide 29 mmol/L (22.0-30.0); Creatinine Clearance Estimated 56 mL/min (50-200); Estimated Glomerular Filt Rate 82 ml/min (>60); GFR (African American) 99 ML/MIN (>60); Glucose 123 mg/dl (74-100); Lipase 197 U/L (23-300); Total Protein,Serum 6.9 g/dl (6.3-8.2)
[2023-12-26 10:40] LABS: Magnesium 1.5 mg/dl (1.6-2.3)
[2023-12-26 10:40] LABS: Coronavirus 19, PCR Not Detected (NotDetected); Influenza A, PCR Not Detected (NotDetected); Influenza B, PCR Not Detected (NotDetected)
[2023-12-26 10:44] LABS: Microscopic, Urine URINE MICROSCOPIC (MICROSCOPIC)
[2023-12-26 10:44] LABS: Activated Partial Thrombo Time 24.5 seconds (22.8-30.6); Prothrombin Time 11.2 seconds (10.1-12.5)
[2023-12-26 10:47] LABS: Appearance,Urine CLEAR (Clear); Bilirubin,Urine Negative (Negative); Blood, Urine Negative (Negative); Color,Urine YELLOW (Yellow); Glucose,Urine (UA) Negative (Negative); Ketones,Urine Negative (Negative); Leukocyte Esterase,Urine TRACE (Negative); Nitrate,Urine Negative (Negative); Protein,Urine TRACE (Negative); Specific Gravity, Urine >= 1.030 (1.005-1.030); Urobilinogen,Urine 0.2 EU/dl (0.2)
--- NOTE | 2023-12-26 10:49 | PC.NURSE ---
patient gone to CT at this time.
[2023-12-26 10:57] LABS: T4 (Thyroxine) 10.8 ug/dl (5.53-11.0)
[2023-12-26 10:58] LABS: Bacteria,Urine Trace /lpf
[2023-12-26 11:04] LABS: Troponin I < 0.01 ng/ml (0.00-0.034)
--- NOTE | 2023-12-26 11:08 | HMH.EDGENADL ---
Discharge Plan Disposition Patient Disposition: Home, Self-Care Condition: Good Chief Complaint: Upper Respiratory Infection Prescriptions Prescriptions: New meclizine 25 mg tablet 25 mg PO TID PRN (Reason: dizziness) Qty: 20 0RF ondansetron 4 mg tablet,disintegrating 4 mg PO Q8H PRN (Reason: nausea and vomiting) 4 Days Qty: 12 0RF naproxen 500 mg tablet 500 mg PO BID Qty: 20 0RF No Action losartan 100 mg tablet 100 mg PO DAILY mirtazapine 30 mg tablet 30 mg PO DAILY Patient Comments: TAKE 1 TABLET BY MOUTH EVERY NIGHT AT BEDTIME insulin glargine [[employer] KwikPen U-100 Insulin] 100 unit/mL (3 mL) insulin pen 30 unit SQ HS simvastatin 20 MG tablet 20 mg PO HS metformin 1,000 MG tablet 1,000 mg PO BIDWMEAL montelukast 10 MG tablet 10 mg PO PM glipizide 10 MG tablet extended release 24hr 10 mg PO DAILY metoprolol tartrate 25 MG tablet 25 mg PO DAILY fluoxetine 10 mg capsule 10 mg PO DAILY Patient Comments: TAKE 1 CAPSULE (10 MG) IN THE MORNING WITH 20MG CAPSULE FOR TOTAL DOSE OF 30MG levothyroxine 200 mcg tablet 200 mcg PO DAILY Patient Comments: TAKE 1 TABLET BY MOUTH ONCE DAILY ON AN EMPTY STOMACH 60 MINUTES BEFORE BREAKFAST fluoxetine 20 mg capsule 20 mg PO DAILY Patient Comments: TAKE 1 CAPSULE (20 MG) IN THE MORNING WITH 10MG TAB FOR TOTAL DOSE OF 30MG lamotrigine 100 mg tablet 100 mg PO DAILY Patient Comments: TAKE 1 TABLET BY MOUTH EVERY DAY hydroxyzine pamoate 25 mg capsule 25 - 50 mg PO Q6HP PRN (Reason: Anxiety) Patient Comments: TAKE 1-2 CAPSULES (25-50 MG) BY MOUTH EVERY 6 HOURS NEEDED FOR ANXIETY OR INSOMNIA cefdinir 300 mg capsule 300 mg PO BID 5 Days Qty: 10 0RF Referrals Follow up/Referrals: Radha Tapia [Primary Care Provider] - See instructions Reyna Torres APRN [Nurse Practitioner] - See instructions Activity Restrictions/Add. Instructions Additional Instructions/Restrictions: You were evaluated in the emergency department today. At this time, your CT scans are reassuring with the exception of mild colitis, or inflammation of your colon. For this, I am prescribing you Zofran to have as needed for nausea and vomiting as well as naproxen to have as an anti-inflammatory to treat your abdominal pain. Please follow-up closely with your primary care provider for reassessment of this. For your vertigo, CT scans do not demonstrate stroke or obvious other cause, so I recommend close follow-up with ENT as well as your primary care provider. You may benefit from referral to neurology, which would have to be facilitated by your primary care provider. I have provided you with meclizine to treat your vertigo. Please make sure that you stay hydrated at home. Start with liquid diet and slowly advance until you are able to tolerate bland foods. Slowly progress diet as able. Return to the emergency department for new or worsening symptoms. Clinical Impressions Clinical Impression: Vertigo, Colitis, Nausea & vomiting Instructions Patient Instructions: DI for Colitis, DI for Vertigo Discharge ED Provider: Antonia Ford [facility] Adult HPI General Chief complaint: Upper Respiratory Infection Stated complaint: vomiting, dizzy, coughing, headache Time Seen by Provider: 12/26/23 09:59 Mode of Arrival: Ambulatory Source of Information: Patient and Relative Limitations: No Limitations Description of Symptoms (Recalled from ER Triage Doc. by RN): pt c/o a cough, lower back pain and WIGGINS that started this am. pt states her head is a 5/10 and dull. pt states her lower back pain is dull/aching and is a 5/10. pt also c/o nausea and dizziness since 12/02. History of Present Illness HPI narrative: This patient is a 73-year-old female with a history of hypertension, hyperlipidemia, hypothyroidism, diabetes, and CELIA presenting to the emergency department for evaluation with concern for multiple complaints. Patient states that since the end of November, she has been having dizziness/vertigo. She states that she feels the room spinning and experiences nausea as a result of this. She notes that this has been persistent and does not seem to let up. She also states that since last night, she started having some low back pain that is dull and aching, upper abdominal pain, cough, shortness of breath, as well as headache that started this morning. On review of systems, she also notes nausea and vomiting. She denies any changes in bowel movements or urinary symptoms. She also denies any chest pain. She states that her right hand feels kind of tingly, but she denies any numbness, tingling, or weakness otherwise. Related Data Home Medications Medication Instructions Recorded Confirmed metformin 1,000 mg tablet 1,000 mg PO BIDWMEAL Diabetes 11/16/18 02/17/23 montelukast 10 mg tablet 10 mg PO PM allergies 11/16/18 02/17/23 simvastatin 20 mg tablet 20 mg PO HS Cholesterol 11/16/18 02/17/23 glipizide 10 mg tablet, extended 10 mg PO DAILY Diabetes 11/07/19 02/17/23 release 24 hr metoprolol tartrate 25 mg tablet 25 mg PO DAILY Hypertension 11/07/19 02/17/23 fluoxetine 10 mg capsule 10 mg PO DAILY MOOD 02/27/22 02/17/23 fluoxetine 20 mg capsule 20 mg PO DAILY MOOD 02/27/22 02/17/23 hydroxyzine pamoate 25 mg capsule 25 - 50 mg PO Q6HP PRN Anxiety 02/27/22 02/17/23 lamotrigine 100 mg tablet 100 mg PO DAILY SEIZURES 02/27/22 02/17/23 levothyroxine 200 mcg tablet 200 mcg PO DAILY THYROID 02/27/22 02/17/23 insulin glargine 100 unit/mL (3 30 unit SQ HS Diabetes 02/17/23 02/17/23 mL) subcutaneous pen ([employer]aglar KwikPen U-100 Insulin) losartan 100 mg tablet 100 mg PO DAILY HTN 02/17/23 02/17/23 mirtazapine 30 mg tablet 30 mg PO DAILY appetite 02/17/23 02/17/23 Previous Rx's Medication Instructions Recorded cefdinir 300 mg capsule 300 mg PO BID 5 days #10 caps 12/03/23 meclizine 25 mg tablet 25 mg PO TID PRN dizziness #20 tabs 12/26/23 naproxen 500 mg tablet 500 mg PO BID #20 tabs 12/26/23 ondansetron 4 mg disintegrating 4 mg PO Q8H PRN nausea and 12/26/23 tablet vomiting 4 days #12 tabs Allergies Allergy/AdvReac Type Severity Reaction Status Date / Time No Known Allergies Allergy Verified 02/17/23 09:40 [facility] Disclaimer: The information contained in this section may have been updated after the patient was seen, as this information can be updated by other users. 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 current occupational exposures/hazards: No caffeine: Yes ROS Obtained: Yes All systems reviewed & no additional complaints except as documented Physical Exam General General appearance: alert and in no apparent distress Head Head exam: atraumatic and normocephalic Eye Eye exam: Present normal appearance, PERRL and EOMI ENT ENT exam: Present normal exam, normal oropharynx, mucous membranes moist and normal external ear exam Neck Neck exam: Present normal inspection, full ROM and trachea midline; Absent tenderness Chest Chest inspection: Present normal inspection and symmetric chest wall rise; Absent tenderness Respiratory Respiratory exam: Present normal lung sounds bilaterally; Absent respiratory distress, wheezes, stridor or accessory muscle use Cardiovascular Cardiovascular exam: Present regular rate and normal rhythm Abdominal Exam Abdominal exam: Present soft and tenderness (Upper abdomen); Absent distention, guarding, rebound or rigidity Extremities Exam Extremities exam: Present normal inspection, full ROM and normal capillary refill; Absent tenderness or edema Back Exam Back exam: Present normal inspection and full ROM; Absent tenderness Neurological Exam Neurological exam: Present alert, oriented X3, CN II-XII intact and normal gait; Absent motor sensory deficit Psychiatric Psychiatric exam: Present normal affect and normal mood Skin Skin exam: Present warm and dry Medical Decision Making Medical Records Medical records reviewed: Yes I reviewed the patient's medical records. Binu Inquiry Pt receiving controlled substance: No Vital Signs: 12/26/23 10:08 12/26/23 10:40 12/26/23 10:42 Temperature 97.8 F Temperature Source Oral Pulse Rate Pulse Rate [Left] 61 Pulse Rate [Orthostatic Lying Apical] Pulse Rate [Orthostatic Sitting Apical] Pulse Rate [Orthostatic Standing Apical] Respiratory Rate 13 16 Blood Pressure 176/77 H 169/66 H Blood Pressure [Orthostatic Lying Left Arm] Blood Pressure [Orthostatic Sitting Left Arm] Blood Pressure [Orthostatic Standing Left Arm] Blood Pressure [Right Arm] 202/96 H Blood Pressure Mean 110 Blood Pressure Mean [Right Arm] 131 Blood Pressure Source [Right Arm] Automatic Cuff Blood Pressure Position [Right Arm] Sitting 02 Sat by Pulse Oximetry 96 Oxygen Delivery Method Room Air 12/26/23 10:43 12/26/23 10:43 12/26/23 11:30 Temperature Temperature Source Pulse Rate 72 Pulse Rate [Left] Pulse Rate [Orthostatic Lying Apical] 57 L Pulse Rate [Orthostatic Sitting Apical] 65 Pulse Rate [Orthostatic Standing Apical] 64 Respiratory Rate 15 Blood Pressure 144/65 H Blood Pressure [Orthostatic Lying Left Arm] 176/77 H Blood Pressure [Orthostatic Sitting Left Arm] 169/66 H Blood Pressure [Orthostatic Standing Left Arm] 144/65 H Blood Pressure [Right Arm] Blood Pressure Mean Blood Pressure Mean [Right Arm] Blood Pressure Source [Right Arm] Blood Pressure Position [Right Arm] 02 Sat by Pulse Oximetry 94 L Oxygen Delivery Method 12/26/23 12:00 12/26/23 12:45 12/26/23 12:56 Temperature Temperature Source Pulse Rate 60 59 L 56 L Pulse Rate [Left] Pulse Rate [Orthostatic Lying Apical] Pulse Rate [Orthostatic Sitting Apical] Pulse Rate [Orthostatic Standing Apical] Respiratory Rate Blood Pressure 156/62 H Blood Pressure [Orthostatic Lying Left Arm] Blood Pressure [Orthostatic Sitting Left Arm] Blood Pressure [Orthostatic Standing Left Arm] Blood Pressure [Right Arm] Blood Pressure Mean Blood Pressure Mean [Right Arm] Blood Pressure Source [Right Arm] Blood Pressure Position [Right Arm] 02 Sat by Pulse Oximetry 95 94 L 94 L Oxygen Delivery Method Room Air Lab Data Lab results reviewed: Yes I reviewed the patient's lab results. Lab Results 12/26/23 10:14: WBC 6.1, RBC 4.13 L, Hgb 13.2, Hct 39.3, MCV 95.2, MCH 32.0 H, MCHC 33.6, RDW 14.0, Plt Count 145, MPV 7.4, Neut % (Auto) 48.3, Lymph % (Auto) 37.3, [place] % (Auto) 7.7, Eos % (Auto) 5.5, Baso % (Auto) 1.3, Neut # (Auto) 3.0, Lymph # (Auto) 2.3, [place] # (Auto) 0.5, Eos # (Auto) 0.3, Baso # (Auto) 0.1, PT 11.2, INR 1.00, APTT 24.5, Sodium 141, Potassium 4.4, Chloride 107, Carbon Dioxide 29, Anion Gap 9.4, BUN 15, Creatinine 0.70, Estimated Creat Clear 56, Estimated GFR 82, Est GFR ( Amer) 99, Glucose 123 H, Calcium 9.3, Magnesium 1.5 L, Total Bilirubin 0.6, AST 32, ALT 20, Alkaline Phosphatase 50, Troponin I < 0.01, Total Protein 6.9, Albumin 3.9, Globulin 3.0, Albumin/Globulin Ratio 1.3, Lipase 197, TSH 1.57, Thyroxine (T4) 10.8 12/26/23 10:24: SARS-CoV-2 (PCR) Not detected, Influenza A Untype (PCR) Not detected, Influenza Type B (PCR) Not detected 12/26/23 10:27: Urine Color Yellow, Urine Appearance Clear, Urine pH 6.0, Ur Specific Edwards >= 1.030, Urine Protein Trace, Urine Glucose (UA) Negative, Urine Ketones Negative, Urine Blood Negative, Urine Nitrate Negative, Urine Bilirubin Negative, Urine Urobilinogen 0.2, Ur Leukocyte Esterase Trace, Urine WBC 5-10, Ur Squamous Epith Cells 5-10, Urine Bacteria Trace 12/26/23 10:14 12/26/23 10:14 Orders (Tests/Meds): ED MEDICATIONS Generic Name Dose Route Start Last Admin Trade Name Freq PRN Reason Stop Dose Admin Sodium Chloride 10 ml 12/26/23 11:11 12/26/23 11:12 Sodium Chloride 0.9% 10ml Syr (Rad Only) IV 01/25/24 11:10 10 ml NEEDED PRN Administration Maintain IV Site Discontinued Medications Generic Name Dose Route Start Last Admin Trade Name Freq PRN Reason Stop Dose Admin Acetaminophen 1,000 mg 12/26/23 10:22 12/26/23 10:31 Acetaminophen 1,000mg/100ml Vial IV 12/26/23 10:23 1,000 mg ONCE ONE Administration Belladonna Alkaloids 60 ml 12/26/23 12:55 12/26/23 12:59 Belladonna Alkaloids 60 Ml Ml PO 12/26/23 12:56 60 ml ONCE ONE Administration Famotidine 20 mg 12/26/23 12:55 12/26/23 12:58 Famotidine 20mg Tablet PO 12/26/23 12:56 20 mg ONCE ONE Administration Lactated Ringer's 1,000 mls @ 999 mls/hr 12/26/23 10:22 12/26/23 10:31 Lactated Ringer's 1000 Ml Bag IV 12/26/23 11:22 999 mls/hr .Q1H1M ONE Administration Iopamidol 175 ml 12/26/23 11:11 12/26/23 11:12 Iopamidol-370 (76%);100ml Bottle IV 12/26/23 11:12 175 ml ONCE ONE Administration Meclizine HCl 25 mg 12/26/23 12:55 12/26/23 12:59 Meclizine 25mg Tablet PO 12/26/23 12:56 25 mg ONCE ONE Administration Ondansetron HCl 4 mg 12/26/23 10:22 12/26/23 10:31 Ondansetron 4mg/2ml Vial IV 12/26/23 10:23 4 mg ONCE ONE Administration Sodium Chloride 100 ml 12/26/23 11:11 12/26/23 11:12 0.9 % Sodium Chloride 50 Ml Vial IV 12/26/23 11:12 100 ml ONCE ONE Administration ORDERS Category Date Time Status CT abdomen pelvis w con Stat Cat Scan 12/26/23 10:[address] angio head Stat Cat Scan 12/26/23 10:[address] angio neck Stat Cat Scan 12/26/23 10:[address] head/brain wo con Stat Cat Scan 12/26/23 10:19 Completed CTA Chest [CT angio chest PE protocol] Stat Cat Scan 12/26/23 10:19 Completed Activated Partial Thrombo Time Stat Lab 12/26/23 10:14 Completed CBC w/Auto Diff [Complete Blood Count Auto Diff] Stat Lab 12/26/23 10:14 Completed CMP [Comprehensive Metabolic Panel] Stat Lab 12/26/23 10:14 Completed Lipase Stat Lab 12/26/23 10:14 Completed MAG [Magnesium] Stat Lab 12/26/23 10:14 Completed Prothrombin Time INR Stat Lab 12/26/23 10:14 Completed Rapid PCR Covid and Flu A/B Stat Lab 12/26/23 10:24 Completed T4 (Thyroxine) Stat Lab 12/26/23 10:14 Completed TSH [Thyroid Stimulating Hormone] Stat Lab 12/26/23 10:14 Completed Trop I [Troponin I] Stat Lab 12/26/23 10:14 Completed Troponin I Q3H Lab 12/26/23 13:30 Ordered Troponin I Q3H Lab 12/26/23 16:30 Ordered UA [Urinalysis and Microscopic] Stat Lab 12/26/23 10:27 Completed ECG Data Tracing #1: I reviewed this ECG and interpreted as documented below: Ventricular rate of 57 bpm. First-degree AV block with a FL interval of [address] changes concerning for ischemia. No significant changes noted from prior EKG. ECG initial impression date: 12/26/23 ECG initial impression time: 10:14 Medical Decision Narrative: In summary, this patient is a 73-year-old female presenting to the Emergency Department for evaluation of multiple complaints including headache, dizziness, nausea and vomiting, cough, shortness of breath, abdominal pain. Differential diagnoses considered include but are not limited to viral syndrome, pneumonia, ACS, dysrhythmia, GERD, pancreatitis, BPPV, CVA. Ruling out the most morbid conditions drove assessment. It should be noted patient's history includes hypertension, hyperlipidemia, CELIA, hypothyroidism, and diabetes which may or may not be at goal therapy. This complicates all aspects of care by increasing patient's risk for morbidity. I reviewed patient's past medical records and noted evaluation at the end of November for vertigo. On exam, the patient is resting comfortably. She is neurologically intact. Cardiopulmonary and abdominal exams demonstrate mild abdominal tenderness but otherwise reassuring. Vitals are reassuring on cardiac telemetry. Workup included CBC, CMP, lipase, troponin, TSH, T4, magnesium, PT, PTT, viral swab, urinalysis, CT head without contrast, CT angiogram of the head, neck, and chest as well as CT abdomen pelvis with IV contrast. EKG was obtained and is reassuring. Patient was given a bolus of IV fluids as well as IV Zofran and acetaminophen for symptomatic improvement. I independently interpreted CT scan prior to the radiologist read and noted no obvious large vessel stroke, no large focal consolidation concerning for pneumonia, and no obvious bowel obstruction. Please see their read for final interpretation. CT read is concerning for mild cerebral vasculature stenosis, which patient already is aware of based on prior medical record review, and also mild colitis. Labs were obtained that demonstrated no acutely concerning abnormalities with kidney function is around her baseline and no significant leukocytosis. Troponin is negative. Magnesium is slightly low but not significantly. Urine is not concerning for infection. Viral swabs negative. Orthostatics are reassuring with no orthostatic hypotension noted. On reassessment, patient had some improvement after administration of interventions above. She states she feels like food could potentially come up and she is still experiencing vertigo, so she was given meclizine. She was also given Pepcid and a GI cocktail with concerns for possible esophagitis in the setting of vomiting. She did not want a GI cocktail. Ultimately, the patient has been dealing with this vertigo for approximately a month and has had reassuring workup that does not point to central cause. She is able to ambulate to the restroom without difficulty. She also has had cough, abdominal pain, nausea, and vomiting with only findings concerning for possible mild colitis on CT scan. I do not feel the patient requires admission for further evaluation and management given that we have ruled out acute life-threatening pathology, and I do feel she can be discharged home with continued supportive management of vertigo as well as supportive management of mild colitis. I do feel she could benefit from further evaluation outpatient for the vertigo, so I advised that she could follow-up with ENT. I provided her with information for this. She may also benefit from neurology follow-up, however neurology does not except referrals from the ED. I advised that she follow-up closely with PCP for this. Ultimately given that the patient is neurologically intact with reassuring vital signs, is able to tolerate oral intake, and is ambulate without difficulty, I feel that she is appropriate for discharge home with prescriptions for meclizine and anti-inflammatories to treat mild colitis. I advised that she follow-up very closely outpatient and gave her strict return precautions. Patient was discharged after all questions were answered. Critical Care Critical Care Time Critical Care Time: No
[2023-12-26 11:10] LABS: Thyroid Stimulating Hormone 1.57 uIU/mL (0.465-4.68)
[2023-12-26] MEDS: 0.9 % SODIUM CHLORIDE 50 ML VIAL 100 ML IV (11:12)
[2023-12-26] MEDS: SODIUM CHLORIDE 0.9% 10ML SYR (RAD ONLY) 10 ML IV (11:12)
[2023-12-26] MEDS: IOPAMIDOL-370 (76%);100ML BOTTLE 175 ML IV (11:12)
--- NOTE | 2023-12-26 11:21 | PC.NURSE ---
patient back in room
[2023-12-26] MEDS: FAMOTIDINE 20MG TABLET 20 MG PO (12:58)
[2023-12-26] MEDS: MECLIZINE 25MG TABLET 25 MG PO (12:59)
[2023-12-26] MEDS: BELLADONNA ALKALOIDS 60 ML ML PO (12:59)
== END 2023-12-26 13:36 | disposition home or self-care (01) ==
PROVIDERS: Emergency Provider Emergency Medicine; PCP Nurse Practitioner Family
DX: R10.10 Upper abdominal pain, unspecified (principal); K52.9 Noninfective gastroenteritis and colitis, unspecified; R42 Dizziness and giddiness; R11.2 Nausea with vomiting, unspecified; R05.9 Cough, unspecified; R51.9 Headache, unspecified; I44.0 Atrioventricular block, first degree; E03.9 Hypothyroidism, unspecified; E78.5 Hyperlipidemia, unspecified; I10 Essential (primary) hypertension; E11.9 Type 2 diabetes mellitus without complications; Z79.4 Long term (current) use of insulin; Z79.84 Long term (current) use of oral hypoglycemic drugs
CPT/HCPCS: 70450; 70496; 70498; 71275; 74177; 80053; 81001; 83690; 83735; 84436; 84443; 84484; 85025; 85610; 85730; 87636; 93005; 96361; 96374; 96375; 99285; J0131; J2405; J7120; Q9967

== ENCOUNTER 2024-02-09 10:42 | Outpatient (CLI) | payer MEDICARE, OTHER, SELFPAY ==
--- NOTE | 2024-02-09 10:50 | MM_ITS ---
PROCEDURE INFORMATION: Exam: MG Bilateral Screening 3D Mammography Exam date and time: 02/09/2024 10:34 AM Age: 74 years old Clinical indication: Screening mammogram TECHNIQUE: Imaging protocol: Bilateral Screening tomosynthesis and 2D mammography including computer-aided detection (CAD) when performed. COMPARISON: 1. MG MM DIG SCREENING MAMM BI W/CAD 11/13/2022 4:17 PM 2. MG MM DIG SCREENING MAMM BI W/CAD 10/21/2021 10:20 AM 3. MG MM DIG SCREENING MAMM BI W/CAD 10/16/2020 2:25 PM 4. MG MM DIG SCREENING MAMM BI W/CAD 10/11/2019 11:05 AM FINDINGS: MAMMOGRAPHY: Breast composition: There are scattered areas of fibroglandular density. Mass: None. Architectural distortion: No new or suspicious architectural distortion. Calcifications: No new or suspicious calcifications are present Asymmetric density: No new or suspicious asymmetric density is present Skin thickening: None. Axillary adenopathy: None. IMPRESSION: No mammographic evidence of malignancy. Recommend annual screening mammography unless otherwise clinically indicated. ASSESSMENT: BI-RADS category 1: Negative.
== END 2024-02-09 23:59 | disposition home or self-care (01) ==
LOC: RAD 10:44
PROVIDERS: PCP Nurse Practitioner Family; Visit Provider Nurse Practitioner Family
DX: Z12.31 Encounter for screening mammogram for malignant neoplasm of breast (principal)
CPT/HCPCS: 77063; 77067

== ENCOUNTER 2024-04-24 19:10 | Observation (INO) | payer MEDICARE, OTHER, SELFPAY ==
[2024-04-24] VITALS (7 sets, daily range): BP systolic 181–267; BP diastolic 78–132; PULSE 65–113; RESP 16–20; TEMP 36.6–36.9; O2SAT 92–94; BMI 23.6
--- NOTE | 2024-04-24 19:39 | XR_ITS ---
PROCEDURE INFORMATION: Exam: XR Chest Exam date and time: 04/24/2024 8:04 PM Age: 74 years old Clinical indication: Dyspnea TECHNIQUE: Imaging protocol: Radiologic exam of the chest. Views: 1 view. COMPARISON: CT ANGIO CHEST PE PROTOCOL 12/26/2023 11:02 AM FINDINGS: Lungs: Imaging through the visualized lung romero demonstrates mild bibasilar subsegmental atelectasis. Pleural spaces: Unremarkable. No pleural effusion. No pneumothorax. Heart/Mediastinum: Unremarkable. No cardiomegaly. Bones/joints: Unremarkable. IMPRESSION: Mild bibasilar atelectasis without acute infiltrates or edema.
--- NOTE | 2024-04-24 19:40 | ECG_ITS ---
APPROVED REPORT Exam: Resting ECG HR:70 bpm ECG Measurements Heart Rate 70 AXES SD 201 P 75 QRSd 95 QRS -82 QT 424 T 55 QTc 446 Conclusion SINUS RHYTHM INCOMPLETE RIGHT BUNDLE BRANCH BLOCK [90+ ms QRS DURATION, TERMINAL R IN V1/V2, 40+ ms S IN I/aVL/V4/V5/V6] LEFT ANTERIOR FASCICULAR BLOCK [QRS AXIS <= -45, QR IN I, RS IN II] POSSIBLE ANTERIOR MYOCARDIAL INFARCTION , OF INDETERMINATE AGE [30 ms Q WAVE IN V3/V4, OR R < 0.2 mV IN V4] ABNORMAL ECG Electronically signed by : PHI CORDOVA, 04/27/2024 07:39:46
--- NOTE | 2024-04-24 19:42 | [facility].EDCP ---
Discharge Plan Disposition Patient Disposition: Admitted Condition: Fair Clinical Impressions Clinical Impression: Multiple falls, Adult failure to thrive Urinary tract infection Qualifiers: Urinary tract infection type: site unspecified Hematuria presence: with hematuria Qualified Code(s): N39.0 - Urinary tract infection, site not specified Discharge ED Provider: Salvatore Jamil HPI <DEB Perdomo - Last Filed: 04/25/24 15:03> General Chief Complaint: Weakness Stated Complaint: Unsteady gait,Difficulty breathing Time Seen by Provider: 04/24/24 19:42 History of Present Illness HPI narrative: Patient presents for evaluation of asthenia and failure to thrive. Patient at baseline lives independently and does all of her activities of daily living herself and ambulates without assistance. However since last Wednesday patient has been falling multiple times a day and gotten progressively weaker it is now to the point where she cannot even get out of bed without assistance much less walk. She also reports significant dyspnea on exertion but does not have a reported history of heart disease or lung disease according to her. 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 She denies any chest pain fever chills hemoptysis hematochezia melena nausea vomiting diarrhea. Related Data Home Medications ?Medication ?Instructions ?Recorded ?Confirmed montelukast 10 mg tablet 10 mg PO PM 11/16/18 04/25/24 simvastatin 20 mg tablet 20 mg PO PM 11/16/18 04/25/24 hydroxyzine pamoate 25 mg capsule 25 mg PO DAILYP PRN Anxiety 02/27/22 04/25/24 losartan 100 mg tablet 100 mg PO DAILY 02/17/23 04/25/24 fluoxetine 40 mg capsule 40 mg PO AM 04/25/24 04/25/24 insulin glargine 100 unit/mL (3 30 unit SQ HS 04/25/24 04/25/24 mL) subcutaneous pen (Basaglar KwgladysPen U-100 Insulin) lamotrigine 200 mg tablet 200 mg PO AM 04/25/24 04/25/24 levothyroxine 150 mcg tablet 150 mcg PO AM 04/25/24 04/25/24 meclizine 25 mg tablet 25 mg PO TIDP PRN Vertigo 04/25/24 04/25/24 ondansetron 4 mg disintegrating 4 mg PO Q6HP PRN Nausea And 04/25/24 04/25/24 tablet Vomiting Previous Rx's ?Medication ?Instructions ?Recorded levofloxacin 750 mg tablet 750 mg PO DAILY 2 days #2 tabs 04/26/24 metoprolol tartrate 25 mg tablet 25 mg PO BID 30 days #60 tabs 04/26/24 Allergies Allergy/AdvReac Type Severity Reaction Status Date / Time No Known Allergies Allergy Verified 02/17/23 09:40 PFS <DEB Perdomo - Last Filed: 04/25/24 15:03> [facility] Disclaimer: The information contained in this section may have been updated after the patient was seen, as this information can be updated by other users. Medical History (Updated 04/25/24 @ 00:36 by Sherif Osuna APRN) Anxiety Bipolar 1 disorder History of seizures Hypertension Mixed hyperlipidemia History of mastoiditis Vertigo Diabetes Postsurgical fever Hypothyroidism Surgical History History of tubal ligation History of colonoscopy History of cholecystectomy Family History (Updated 04/25/24 @ 00:13 by Magali Schmidt RN) Other COPD (chronic obstructive pulmonary disease) Cancer Hypertension Thyroid disorder Social History (Updated 04/25/24 @ 00:12 by Magali Schmidt RN) Smoking Status: Former smoker second hand exposure: Yes alcohol intake: never substance use type: marijuana current occupational status: retired household members: none housing: house 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 current occupational exposures/hazards: No caffeine: Yes Other Medical History Have you received the Flu Vaccine for this season: No Have you received the Pneumonia Vaccine: Yes <DEB Perdomo - Last Filed: 04/25/24 15:03> ROS Obtained: Yes Systems reviewed as appropriate & no additional complaints except as documented Physical Exam <DEB Perdomo - Last Filed: 04/25/24 15:03> General General appearance: alert and in no apparent distress Respiratory Respiratory exam: Present normal lung sounds bilaterally; Absent respiratory distress Cardiovascular Cardiovascular exam: Present regular rate Neurological Exam Neurological exam: Present alert, oriented X3 and CN II-XII intact HEART Score <DEB Perdomo Last Filed: 04/25/24 15:03> HEART Score HEART Score assessment performed?: No Critical Care <DEB Perdomo - Last Filed: 04/25/24 15:03> Critical Care Time Critical Care Time: No Medical Decision Making <DEB Perdomo - Last Filed: 04/25/24 15:03> Medical Records Medical records reviewed: Yes I reviewed the patient's medical records. Binu Inquiry Pt receiving controlled substance: No Vital Signs Vital Signs: 04/24/24 19:42 04/24/24 19:48 04/24/24 22:11 Temperature 98.4 F Temperature Source Oral Pulse Rate 65 Pulse Rate [Apical] 80 102 H Respiratory Rate 20 16 18 Blood Pressure 200/91 H Blood Pressure [Right Arm] 205/84 H Blood Pressure Mean [Right Arm] 124 02 Sat by Pulse Oximetry 94 L 94 L 94 L Oxygen Delivery Method Room Air Room Air Room Air 04/24/24 22:19 Temperature 98.0 F Temperature Source Pulse Rate 73 Pulse Rate [Apical] Respiratory Rate 20 Blood Pressure 199/78 H Blood Pressure [Right Arm] Blood Pressure Mean [Right Arm] 02 Sat by Pulse Oximetry Oxygen Delivery Method Room Air Lab Data Lab results reviewed: Yes I reviewed the patient's lab results. Labs: Lab Results 04/24/24 19:41: WBC 6.7, RBC 4.39, Hgb 13.4, Hct 39.5, MCV 89.9, MCH 30.5, MCHC 33.9, RDW 13.7, Plt Count 159, MPV 7.0 L, Neut % (Auto) 56.5, Lymph % (Auto) 29.7, [facility] % (Auto) 8.3, Eos % (Auto) 4.4, Baso % (Auto) 1.1, Neut # (Auto) 3.8, Lymph # (Auto) 2.0, [facility] # (Auto) 0.6, Eos # (Auto) 0.3, Baso # (Auto) 0.1, PT 11.4, INR 1.02, D-Dimer 1.05 H, Sodium 139, Potassium 3.2 L, Chloride 102, Carbon Dioxide 29, Anion Gap 11.2, BUN 8, Creatinine 0.70, Estimated Creat Clear 52, Estimated GFR 81, Est GFR ( Amer) 98, Glucose 201 H, Calcium 9.1, Magnesium 1.6, Total Bilirubin 0.8, AST 31, ALT 17, Alkaline Phosphatase 77, NT-Pro-B Natriuret Pep 495 H, Total Protein 7.1, Albumin 3.9, Globulin 3.2, Albumin/Globulin Ratio 1.2, Procalcitonin 0.048, Hepatitis C Antibody Non reactive, HIV 1&2 Antibody Rapid Nonreactive 04/24/24 19:52: SARS-CoV-2 (PCR) Not detected, Influenza A Untype (PCR) Not detected, Influenza Type B (PCR) Not detected 04/24/24 20:50: Urine Color Yellow, Urine Appearance Sl cloudy, Urine pH 6.0, Ur Specific Flushing 1.020, Urine Protein Negative, Urine Glucose (UA) Negative, Urine Ketones Negative, Urine Blood Negative, Urine Nitrate Negative, Urine Bilirubin Negative, Urine Urobilinogen 0.2, Ur Leukocyte Esterase 1+ A, Urine RBC None, Urine WBC 50-100, Ur Squamous Epith Cells 5-10, Urine Bacteria 4+ 04/26/24 05:54 04/26/24 05:54 Response Orders (Tests/Meds): ED MEDICATIONS Discontinued Medications Generic Name Dose Route Start Last Admin Trade Name Freq PRN Reason Stop Dose Admin Acetaminophen 650 mg 04/24/24 22:15 04/26/24 06:05 Acetaminophen 325mg Tab PO 05/24/24 22:14 650 mg Q4HP PRN Administration Fever or Mild Pain (1-3) Carvedilol 6.25 mg 04/26/24 09:00 04/26/24 08:29 Carvedilol 6.25mg Tablet PO 05/26/24 08:59 6.25 mg BID DONAVAN Administration Diphenhydramine HCl 50 mg 04/24/24 22:58 04/24/24 23:51 Diphenhydramine 50mg/Ml Vial IV 04/24/24 22:59 Not Given ONCE ONE Fluoxetine HCl 40 mg 04/25/24 09:10 04/26/24 08:29 Fluoxetine 20mg Capsule PO 05/25/24 09:09 40 mg DAILY DONAVAN Administration Ceftriaxone Sodium 1 gm/ 50 mls @ 100 mls/hr 04/24/24 22:00 04/25/24 21:39 Sodium Chloride IV 05/04/24 21:59 100 mls/hr Q24H DONAAVN Administration Magnesium Sulfate 2 gm in 50 mls @ 50 mls/hr 04/25/24 09:00 04/25/24 10:17 Magnesium Sulfate 2gm/50ml Premix IV 04/25/24 10:59 50 mls/hr Q1H DONAVAN Administration Levofloxacin/Dextrose 750 mg in 150 mls @ 100 mls/hr 04/26/24 10:00 04/26/24 09:59 Levofloxacin 750mg/150ml Premix IV 05/06/24 09:59 100 mls/hr 1100 DONAVAN Administration Insulin Glargine 30 unit 04/25/24 21:00 04/25/24 21:49 Insulin Glargine 100 Units/Ml 3ml Flexpen SUBCUT 05/25/24 20:59 30 units HS DONAVAN Administration Iopamidol 150 ml 04/24/24 22:52 04/24/24 23:14 Iopamidol-370 (76%);100ml Bottle IV 04/24/24 22:53 150 ml ONCE ONE Administration Irbesartan 150 mg 04/25/24 09:00 04/26/24 08:29 Irbesartan 150mg Tab PO 05/25/24 08:59 150 mg DAILY DONAVAN Administration Lamotrigine 200 mg 04/25/24 09:00 04/26/24 08:29 Lamotrigine 100mg Tablet PO 05/25/24 08:59 200 mg DAILY DONAVAN Administration Levothyroxine Sodium 150 mcg 04/25/24 07:30 04/26/24 06:04 Levothyroxine 150mcg (0.15mg)Tab PO 05/25/24 07:29 150 mcg DAILYDM DONAVAN Administration Metoprolol Tartrate 25 mg 04/25/24 09:00 04/25/24 09:08 Metoprolol Tartrate 25mg Tablet PO 05/25/24 08:59 25 mg DAILY DONAVAN Administration Nifedipine 10 mg 04/26/24 05:38 04/26/24 06:05 Nifedipine 10mg Capsule PO 04/26/24 05:39 10 mg ONCE ONE Administration Ondansetron HCl 4 mg 04/24/24 22:15 Ondansetron 4mg/2ml Vial IV 05/24/24 22:14 Q8HP PRN Nausea Ondansetron HCl 4 mg 04/24/24 22:58 04/24/24 23:49 Ondansetron 4mg/2ml Vial IV 04/24/24 22:59 Not Given ONCE ONE Ondansetron HCl 4 mg 04/24/24 23:02 04/24/24 23:50 Ondansetron 4mg/2ml Vial IV 04/24/24 23:03 Not Given ONCE ONE Pantoprazole Sodium 40 mg 04/25/24 21:00 04/25/24 21:39 Pantoprazole 40mg Tablet PO 05/25/24 20:59 40 mg HS DONAVAN Administration Potassium Chloride 40 meq 04/25/24 09:00 04/25/24 17:13 Potassium Chloride 20meq Tab PO 04/25/24 17:01 40 meq Q4H DONAVAN Administration Pravastatin Sodium 40 mg 04/25/24 21:00 04/25/24 21:39 Pravastatin 40mg Tab PO 05/25/24 20:59 40 mg HS DONAVAN Administration Promethazine HCl 6.25 mg 04/24/24 23:04 04/24/24 23:50 Promethazine Hcl 25mg/Ml 1ml Vial IV 04/24/24 23:05 Not Given ONCE ONE Sodium Chloride 50 ml 04/24/24 22:52 04/24/24 23:14 0.9 % Sodium Chloride 50 Ml Vial IV 04/24/24 22:53 50 ml ONCE ONE Administration Sodium Chloride 10 ml 04/24/24 22:52 04/24/24 23:14 Sodium Chloride 0.9% 10ml Syr (Rad Only) IV 04/24/24 22:53 10 ml ONCE ONE Administration Sodium Chloride 25 ml 04/24/24 23:03 Sodium Chloride 0.9% 25ml Bag IV 05/24/24 23:02 NEEDED PRN for Use with IV Promethazine ORDERS Category Date Time Status CT angio chest PE protocol Stat Cat Scan 04/24/24 21:[address] angio head Stat Cat Scan 04/24/24 21:[address] angio neck Stat Cat Scan 04/24/24 21:[address] head/brain wo con Stat Cat Scan 04/24/24 21:43 Completed Chest XR -- portable [XR chest portable] Stat Exams 04/24/24 19:39 Completed BNP [NT Pro Brain Natriuretic Pep.] Stat Lab 04/24/24 19:41 Completed CBC w/Auto Diff [Complete Blood Count Auto Diff] Stat Lab 04/24/24 19:41 Completed CMP [Comprehensive Metabolic Panel] Stat Lab 04/24/24 19:41 Completed Complete Blood Count Auto Diff AMLAB Lab 04/25/24 05:53 Completed Comprehensive Metabolic Panel AMLAB Lab 04/25/24 05:53 Completed D-Dimer Stat Lab 04/24/24 19:41 Completed HIV (1&2) Antibody Rapid Stat Lab 04/24/24 19:41 Completed Hep C Ab with Reflex to RNA Stat Lab 04/24/24 19:41 Completed INR [Prothrombin Time INR] Stat Lab 04/24/24 19:41 Completed Magnesium AMLAB Lab 04/25/24 05:53 Completed Magnesium Stat Lab 04/24/24 19:41 Completed Procalcitonin Stat Lab 04/24/24 19:41 Completed Rapid PCR Covid and Flu A/B Stat Lab 04/24/24 19:52 Completed UA [Urinalysis and Microscopic] Stat Lab 04/24/24 20:50 Completed Urine Culture Stat Micro 04/24/24 20:50 Completed MDM Narrative Medical Decision Narrative: In summary patient is a 74-year-old female who presents to the emergency department for evaluation of asthenia and dyspnea on exertion. Patient is initially hypertensive with a blood pressure of 205/84 satting at 94% on room air breathing 20 times a minute with a pulse of 80 upon arrival, afebrile. Physical exam is remarkable for no obvious dependent edema or volume overload, normal breath sounds with breath sounds heard to bases without adventitious sounds, normal heart sounds, normal sinus rhythm on the bedside monitor, no increased work of breathing, Glascow coma score 15 and patient is awake alert and oriented to person place and circumstance. NIH stroke score is 0 currently. Differential diagnosis includes occult infection versus heart failure versus failure to thrive. Patient is followed multiple times since last Wednesday. She does not however have any evidence of injury. Initial workup will be conducted with hematologic labs CT scan of the head neck and chest urinalysis. Initial interventions was considered however patient is currently hypertensive but asymptomatic I am going to allow permissive hypertension for now until we have some results of her workup. Initial workup reviewed by me shows that her white count is normal H&H is normal and there is no shift in her differential. INR is 1.02, D-dimer is elevated it would 0.05, chemistry significant for potassium of 3.2 and a glucose of 201, magnesium is 1.6, her NT proBNP is elevated at 495, her procalcitonin is detectable at 0.048 and her urinalysis shows negative blood negative protein positive leukocyte Estrace on the dipstick with microscopic exam showing no red blood cells 50-100 white cells 5-10 epithelial cells indicating a good specimen and 4+ bacteria, her COVID and flu swabs are negative. Given the functional decline I have contacted hospital medicine to discuss patient management and she will be admitted for further evaluation and care. <Salvatore Jamil MD - Last Filed: 04/29/24 07:25> Vital Signs Vital Signs: 04/24/24 19:42 04/24/24 19:48 04/24/24 22:11 Temperature 98.4 F Temperature Source Oral Pulse Rate 65 Pulse Rate [Apical] 80 102 H Respiratory Rate 20 16 18 Blood Pressure 200/91 H Blood Pressure [Right Arm] 205/84 H Blood Pressure Mean [Right Arm] 124 02 Sat by Pulse Oximetry 94 L 94 L 94 L Oxygen Delivery Method Room Air Room Air Room Air 04/24/24 22:19 Temperature 98.0 F Temperature Source Pulse Rate 73 Pulse Rate [Apical] Respiratory Rate 20 Blood Pressure 199/78 H Blood Pressure [Right Arm] Blood Pressure Mean [Right Arm] 02 Sat by Pulse Oximetry Oxygen Delivery Method Room Air Lab Data Labs: Lab Results 04/24/24 19:41: WBC 6.7, RBC 4.39, Hgb 13.4, Hct 39.5, MCV 89.9, MCH 30.5, MCHC 33.9, RDW 13.7, Plt Count 159, MPV 7.0 L, Neut % (Auto) 56.5, Lymph % (Auto) 29.7, [facility] % (Auto) 8.3, Eos % (Auto) 4.4, Baso % (Auto) 1.1, Neut # (Auto) 3.8, Lymph # (Auto) 2.0, [facility] # (Auto) 0.6, Eos # (Auto) 0.3, Baso # (Auto) 0.1, PT 11.4, INR 1.02, D-Dimer 1.05 H, Sodium 139, Potassium 3.2 L, Chloride 102, Carbon Dioxide 29, Anion Gap 11.2, BUN 8, Creatinine 0.70, Estimated Creat Clear 52, Estimated GFR 81, Est GFR ( Amer) 98, Glucose 201 H, Calcium 9.1, Magnesium 1.6, Total Bilirubin 0.8, AST 31, ALT 17, Alkaline Phosphatase 77, NT-Pro-B Natriuret Pep 495 H, Total Protein 7.1, Albumin 3.9, Globulin 3.2, Albumin/Globulin Ratio 1.2, Procalcitonin 0.048, Hepatitis C Antibody Non reactive, HIV 1&2 Antibody Rapid Nonreactive 04/24/24 19:52: SARS-CoV-2 (PCR) Not detected, Influenza A Untype (PCR) Not detected, Influenza Type B (PCR) Not detected 04/24/24 20:50: Urine Color Yellow, Urine Appearance Sl cloudy, Urine pH 6.0, Ur Specific Flushing 1.020, Urine Protein Negative, Urine Glucose (UA) Negative, Urine Ketones Negative, Urine Blood Negative, Urine Nitrate Negative, Urine Bilirubin Negative, Urine Urobilinogen 0.2, Ur Leukocyte Esterase 1+ A, Urine RBC None, Urine WBC 50-100, Ur Squamous Epith Cells 5-10, Urine Bacteria 4+ Response Orders (Tests/Meds): ED MEDICATIONS Discontinued Medications Generic Name Dose Route Start Last Admin Trade Name Freq PRN Reason Stop Dose Admin Acetaminophen 650 mg 04/24/24 22:15 04/26/24 06:05 Acetaminophen 325mg Tab PO 05/24/24 22:14 650 mg Q4HP PRN Administration Fever or Mild Pain (1-3) Carvedilol 6.25 mg 04/26/24 09:00 04/26/24 08:29 Carvedilol 6.25mg Tablet PO 05/26/24 08:59 6.25 mg BID DONAAVN Administration Diphenhydramine HCl 50 mg 04/24/24 22:58 04/24/24 23:51 Diphenhydramine 50mg/Ml Vial IV 04/24/24 22:59 Not Given ONCE ONE Fluoxetine HCl 40 mg 04/25/24 09:10 04/26/24 08:29 Fluoxetine 20mg Capsule PO 05/25/24 09:09 40 mg DAILY DONAVAN Administration Ceftriaxone Sodium 1 gm/ 50 mls @ 100 mls/hr 04/24/24 22:00 04/25/24 21:39 Sodium Chloride IV 05/04/24 21:59 100 mls/hr Q24H DONAVAN Administration Magnesium Sulfate 2 gm in 50 mls @ 50 mls/hr 04/25/24 09:00 04/25/24 10:17 Magnesium Sulfate 2gm/50ml Premix IV 04/25/24 10:59 50 mls/hr Q1H DONAVAN Administration Levofloxacin/Dextrose 750 mg in 150 mls @ 100 mls/hr 04/26/24 10:00 04/26/24 09:59 Levofloxacin 750mg/150ml Premix IV 05/06/24 09:59 100 mls/hr 1100 DONAVAN Administration Insulin Glargine 30 unit 04/25/24 21:00 04/25/24 21:49 Insulin Glargine 100 Units/Ml 3ml Flexpen SUBCUT 05/25/24 20:59 30 units HS DONAVAN Administration Iopamidol 150 ml 04/24/24 22:52 04/24/24 23:14 Iopamidol-370 (76%);100ml Bottle IV 04/24/24 22:53 150 ml ONCE ONE Administration Irbesartan 150 mg 04/25/24 09:00 04/26/24 08:29 Irbesartan 150mg Tab PO 05/25/24 08:59 150 mg DAILY DONAVAN Administration Lamotrigine 200 mg 04/25/24 09:00 04/26/24 08:29 Lamotrigine 100mg Tablet PO 05/25/24 08:59 200 mg DAILY DONAVAN Administration Levothyroxine Sodium 150 mcg 04/25/24 07:30 04/26/24 06:04 Levothyroxine 150mcg (0.15mg)Tab PO 05/25/24 07:29 150 mcg DAILYDM DONAVAN Administration Metoprolol Tartrate 25 mg 04/25/24 09:00 04/25/24 09:08 Metoprolol Tartrate 25mg Tablet PO 05/25/24 08:59 25 mg DAILY DONAVAN Administration Nifedipine 10 mg 04/26/24 05:38 04/26/24 06:05 Nifedipine 10mg Capsule PO 04/26/24 05:39 10 mg ONCE ONE Administration Ondansetron HCl 4 mg 04/24/24 22:15 Ondansetron 4mg/2ml Vial IV 05/24/24 22:14 Q8HP PRN Nausea Ondansetron HCl 4 mg 04/24/24 22:58 04/24/24 23:49 Ondansetron 4mg/2ml Vial IV 04/24/24 22:59 Not Given ONCE ONE Ondansetron HCl 4 mg 04/24/24 23:02 04/24/24 23:50 Ondansetron 4mg/2ml Vial IV 04/24/24 23:03 Not Given ONCE ONE Pantoprazole Sodium 40 mg 04/25/24 21:00 04/25/24 21:39 Pantoprazole 40mg Tablet PO 05/25/24 20:59 40 mg HS DONAVAN Administration Potassium Chloride 40 meq 04/25/24 09:00 04/25/24 17:13 Potassium Chloride 20meq Tab PO 04/25/24 17:01 40 meq Q4H DONAVAN Administration Pravastatin Sodium 40 mg 04/25/24 21:00 04/25/24 21:39 Pravastatin 40mg Tab PO 05/25/24 20:59 40 mg HS DONAVAN Administration Promethazine HCl 6.25 mg 04/24/24 23:04 04/24/24 23:50 Promethazine Hcl 25mg/Ml 1ml Vial IV 04/24/24 23:05 Not Given ONCE ONE Sodium Chloride 50 ml 04/24/24 22:52 04/24/24 23:14 0.9 % Sodium Chloride 50 Ml Vial IV 04/24/24 22:53 50 ml ONCE ONE Administration Sodium Chloride 10 ml 04/24/24 22:52 04/24/24 23:14 Sodium Chloride 0.9% 10ml Syr (Rad Only) IV 04/24/24 22:53 10 ml ONCE ONE Administration Sodium Chloride 25 ml 04/24/24 23:03 Sodium Chloride 0.9% 25ml Bag IV 05/24/24 23:02 NEEDED PRN for Use with IV Promethazine ORDERS Category Date Time Status CT angio chest PE protocol Stat Cat Scan 04/24/24 21:[address] angio head Stat Cat Scan 04/24/24 21:[address] angio neck Stat Cat Scan 04/24/24 21:[address] head/brain wo con Stat Cat Scan 04/24/24 21:43 Completed Chest XR -- portable [XR chest portable] Stat Exams 04/24/24 19:39 Completed BNP [NT Pro Brain Natriuretic Pep.] Stat Lab 04/24/24 19:41 Completed CBC w/Auto Diff [Complete Blood Count Auto Diff] Stat Lab 04/24/24 19:41 Completed CMP [Comprehensive Metabolic Panel] Stat Lab 04/24/24 19:41 Completed Complete Blood Count Auto Diff AMLAB Lab 04/25/24 05:53 Completed Comprehensive Metabolic Panel AMLAB Lab 04/25/24 05:53 Completed D-Dimer Stat Lab 04/24/24 19:41 Completed HIV (1&2) Antibody Rapid Stat Lab 04/24/24 19:41 Completed Hep C Ab with Reflex to RNA Stat Lab 04/24/24 19:41 Completed INR [Prothrombin Time INR] Stat Lab 04/24/24 19:41 Completed Magnesium AMLAB Lab 04/25/24 05:53 Completed Magnesium Stat Lab 04/24/24 19:41 Completed Procalcitonin Stat Lab 04/24/24 19:41 Completed Rapid PCR Covid and Flu A/B Stat Lab 04/24/24 19:52 Completed UA [Urinalysis and Microscopic] Stat Lab 04/24/24 20:50 Completed Urine Culture Stat Micro 04/24/24 20:50 Completed ECG Data Tracing #1: Attestation: I reviewed this ECG and interpreted as documented below: (Independent interpretation sinus rhythm ventricular rate 70. MT 201, QRS 95, QTc 446. Incomplete right bundle branch block morphology no acute ischemic change. Leftward axis) MDM Narrative Medical Decision Narrative: In summary patient is a 74-year-old female who presents to the emergency department for evaluation of asthenia and dyspnea on exertion. Patient is initially hypertensive with a blood pressure of 205/84 satting at 94% on room air breathing 20 times a minute with a pulse of 80 upon arrival, afebrile. Physical exam is remarkable for no obvious dependent edema or volume overload, normal breath sounds with breath sounds heard to bases without adventitious sounds, normal heart sounds, normal sinus rhythm on the bedside monitor, no increased work of breathing, Glascow coma score 15 and patient is awake alert and oriented to person place and circumstance. NIH stroke score is 0 currently. Differential diagnosis includes occult infection versus heart failure versus failure to thrive. Patient is followed multiple times since last Wednesday. She does not however have any evidence of injury. Initial workup will be conducted with hematologic labs CT scan of the head neck and chest urinalysis. Initial interventions was considered however patient is currently hypertensive but asymptomatic I am going to allow permissive hypertension for now until we have some results of her workup. Initial workup reviewed by me shows that her white count is normal H&H is normal and there is no shift in her differential. INR is 1.02, D-dimer is elevated it would 0.05, chemistry significant for potassium of 3.2 and a glucose of 201, magnesium is 1.6, her NT proBNP is elevated at 495, her procalcitonin is detectable at 0.048 and her urinalysis shows negative blood negative protein positive leukocyte Estrace on the dipstick with microscopic exam showing no red blood cells 50-100 white cells 5-10 epithelial cells indicating a good specimen and 4+ bacteria, her COVID and flu swabs are negative. Given the functional decline I have contacted hospital medicine to discuss patient management and she will be admitted for further evaluation and care. I was consulted by the NIMESH, and we discussed the complexity of the problems being addressed. I approved the treatment and management plan for this patient's care in the Emergency Department, thus performing a substantive portion of the medical decision making. Salvatore Jamil MD
[2024-04-24 19:56] LABS: Coronavirus 19, PCR Not Detected (NotDetected); Influenza A, PCR Not Detected (NotDetected); Influenza B, PCR Not Detected (NotDetected)
[2024-04-24 19:56] LABS: Basophils # 0.1 K/mm3 (0-0.2); Basophils % 1.1 % (0.1-2.0); Eosinophils # 0.3 K/mm3 (0.0-0.4); Eosinophils % 4.4 % (0.1-12.0); Hematocrit 39.5 % (37.0-47.0); Hemoglobin 13.4 g/dL (12.2-16.2); Lymphocytes % 29.7 % (10-50); Mean Corpuscular HGB Conc 33.9 g/dL (31.8-35.4); Mean Corpuscular Hemoglobin 30.5 pg (27.0-31.2); Mean Corpuscular Volume 89.9 fl (81-99); Monocytes # 0.6 K/mm3 (0.1-1.0); Monocytes % 8.3 % (1.7-9.3); Neutrophils # 3.8 K/mm3 (1.8-7.8); Neutrophils % 56.5 % (37.0-80.0); Platelet Count 159 K/mm3 (142-424); Red Blood Count 4.39 M/mm3 (4.20-5.40); Red Cell Distribution Width 13.7 % (11.5-17.5); White Blood Count 6.7 K/mm3 (4.8-10.8)
[2024-04-24 20:02] LABS: INR 1.02 (0.9-1.1); Prothrombin Time 11.4 seconds (10.1-12.5)
[2024-04-24 20:27] LABS: NT Pro Brain Natriuretic Pep. 495 pg/mL (0-450)
[2024-04-24 20:34] LABS: Procalcitonin 0.048 ng/mL (0.0-2.0)
[2024-04-24 20:47] LABS: Alanine Aminotransferase 17 U/L (12-78); Albumin Level 3.9 g/dl (3.5-5.0); Albumin/Globulin Ratio 1.2 (1.1-1.8); Alkaline Phosphatase 77 U/L (38-126); Anion Gap 11.2 mEq/L (5-15); Aspartate Amino Transferase 31 U/L (14-36); Bilirubin,Total 0.8 mg/dl (0.2-1.3); Blood Urea Nitrogen 8 mg/dl (7-17); Calcium 9.1 mg/dl (8.4-10.2); Carbon Dioxide 29 mmol/L (22.0-30.0); Chloride 102 mmol/L (98-107); Creatinine Clearance Estimated 52 mL/min (50-200); Estimated Glomerular Filt Rate 81 ml/min (>60); GFR (African American) 98 ML/MIN (>60); Globulin 3.2 g/dL (1.3-3.2); Glucose 201 mg/dl (74-100); Magnesium 1.6 mg/dl (1.6-2.3); Potassium 3.2 mmoL/L (3.5-5.1); Sodium 139 mmol/L (136-145); Total Protein,Serum 7.1 g/dl (6.3-8.2)
[2024-04-24 20:51] LABS: Microscopic, Urine URINE MICROSCOPIC (MICROSCOPIC)
[2024-04-24 21:05] LABS: Appearance,Urine SL CLOUDY (Clear); Bilirubin,Urine Negative (Negative); Blood, Urine Negative (Negative); Color,Urine YELLOW (Yellow); Glucose,Urine (UA) Negative (Negative); Ketones,Urine Negative (Negative); Leukocyte Esterase,Urine 1+ (Negative); Nitrate,Urine Negative (Negative); Protein,Urine Negative (Negative); Urobilinogen,Urine 0.2 EU/dl (0.2)
[2024-04-24 21:22] LABS: HIV (1&2) Antibody Rapid NONREACTIVE (NONREACTIVE)
--- NOTE | 2024-04-24 21:43 | CT_ITS ---
PROCEDURE INFORMATION: Exam: CT Head Without Contrast Exam date and time: 04/24/2024 10:46 PM Age: 74 years old Clinical indication: Injury or trauma; Fall; Blunt trauma (contusions or hematomas); Additional info: Multiple falls TECHNIQUE: Imaging protocol: Computed tomography of the head without contrast. Radiation optimization: All CT scans at this facility use at least one of these dose optimization techniques: automated exposure control; mA and/or kV adjustment per patient size (includes targeted exams where dose is matched to clinical indication); or iterative reconstruction. COMPARISON: CT ANGIO HEAD 12/26/2023 10:57 AM FINDINGS: Brain: Intracranial vascular calcification. Decreased attenuation of the supratentorial white matter is likely secondary to chronic microvascular ischemia. No acute intracranial hemorrhage. Cerebral ventricles: Ventricular and subarachnoid spaces are age appropriate. Paranasal sinuses: Mild paranasal sinus disease. Mastoid air cells: Visualized mastoid air cells are well aerated. Bones: Hyperostosis frontalis interna. No acute calvarial fracture. Soft tissues: Unremarkable. IMPRESSION: No acute intracranial abnormality.
[2024-04-24 21:45] LABS: D-Dimer 1.05 ug/mL (0.0-0.5)
--- NOTE | 2024-04-24 21:48 | CT_ITS ---
PROCEDURE INFORMATION: Exam: CTA Head With Contrast, Arteriography Exam date and time: 04/24/2024 10:49 PM Age: 74 years old Clinical indication: Injury or trauma; Fall; Blunt trauma; Head and neck; Additional info: Multiple falls TECHNIQUE: Imaging protocol: Computed tomographic angiography of the head with contrast. Exam focused on the arteries. 3D rendering (Not supervised by radiologist): MIP and/or 3D reconstructed images were created by the technologist. Radiation optimization: All CT scans at this facility use at least one of these dose optimization techniques: automated exposure control; mA and/or kV adjustment per patient size (includes targeted exams where dose is matched to clinical indication); or iterative reconstruction. Contrast material: ISO 370; Contrast volume: 80 ml; Contrast route: INTRAVENOUS (IV); COMPARISON: CT ANGIO HEAD 12/26/2023 10:57 AM FINDINGS: ANTERIOR CIRCULATION: Right internal carotid artery: Calcification involving the right carotid siphon without significant stenosis. Right middle cerebral artery: No occlusion or significant stenosis. No aneurysm. Right anterior cerebral artery: No occlusion or significant stenosis. No aneurysm. Left internal carotid artery: Calcification involving the left carotid siphon without significant stenosis. Left middle cerebral artery: No occlusion or significant stenosis. No aneurysm. Left anterior cerebral artery: No occlusion or significant stenosis. No aneurysm. POSTERIOR CIRCULATION: Right vertebral artery: No occlusion or significant stenosis. No aneurysm. Left vertebral artery: No occlusion or significant stenosis. No aneurysm. Basilar artery: No occlusion or significant stenosis. No aneurysm. Right posterior cerebral artery: No occlusion or significant stenosis. No aneurysm. Left posterior cerebral artery: No occlusion or significant stenosis. No aneurysm. IMPRESSION: No hemodynamically significant stenosis or large vessel occlusion.
--- NOTE | 2024-04-24 21:48 | CT_ITS ---
PROCEDURE INFORMATION: Exam: CTA Neck With Contrast Exam date and time: 04/24/2024 10:49 PM Age: 74 years old Clinical indication: Injury or trauma; Fall; Blunt trauma; Head and neck; Additional info: Multiple falls TECHNIQUE: Imaging protocol: Computed tomographic angiography of the neck with contrast. Exam focused on the cervical segments of the vasculature. 3D rendering (Not supervised by radiologist): MIP and/or 3D reconstructed images were created by the technologist. Radiation optimization: All CT scans at this facility use at least one of these dose optimization techniques: automated exposure control; mA and/or kV adjustment per patient size (includes targeted exams where dose is matched to clinical indication); or iterative reconstruction. Contrast material: ISO 370; Contrast volume: 80 ml; Contrast route: INTRAVENOUS (IV); COMPARISON: CT ANGIO NECK 12/26/2023 10:57 AM FINDINGS: Right common carotid artery: Calcification and plaquing involving the right common carotid artery. No hemodynamically significant stenosis. Right internal carotid artery: Calcification of the proximal right ICA. No significant stenosis. Right external carotid artery: No occlusion or stenosis of the origin. Left common carotid artery: Calcification involving the left common carotid artery. Mild stenosis measures less than 50%. Left internal carotid artery: Calcification of the proximal left ICA. No significant stenosis. Left external carotid artery: No occlusion or stenosis of the origin. Right vertebral artery: No stenosis. No dissection or occlusion. Left vertebral artery: No stenosis. No dissection or occlusion. Aorta: Aortic calcification. Thyroid: Previous thyroidectomy. Soft tissues: Normal. No significant soft tissue swelling. Bones/joints: There are degenerative changes involving the spine. Lungs: Scarring at the lung apices. IMPRESSION: No hemodynamically significant stenosis. REFERENCES: NASCET CRITERIA. The degree of stenosis in the cervical segment of the internal carotid artery is based on NASCET criteria. Normal is no stenosis. Mild is less than 50% stenosis. Moderate is 50-69% stenosis. Severe is 70% to 99% stenosis. Total occlusion is no detectable patent lumen.
--- NOTE | 2024-04-24 21:51 | CT_ITS ---
PROCEDURE INFORMATION: Exam: CTA Chest With Contrast Exam date and time: 04/24/2024 11:03 PM Age: 74 years old Clinical indication: Injury or trauma; Fall; Blunt trauma (contusions or hematomas); Additional info: Multiple falls, elevated d-dimer TECHNIQUE: Imaging protocol: Computed tomographic angiography of the chest with contrast. Exam focused on the arteries. 3D rendering (Not supervised by radiologist): MIP and/or 3D reconstructed images were created by the technologist. Total images: 276 Radiation optimization: All CT scans at this facility use at least one of these dose optimization techniques: automated exposure control; mA and/or kV adjustment per patient size (includes targeted exams where dose is matched to clinical indication); or iterative reconstruction. Contrast material: ISO 370; Contrast volume: 70 ml; Contrast route: INTRAVENOUS (IV); COMPARISON: CT ANGIO CHEST PE PROTOCOL 12/26/2023 11:02 AM FINDINGS: Pulmonary arteries: Adequate contrast opacification of the pulmonary arteries. No acute pulmonary emboli. Dilated main pulmonary artery at 4 cm implying pulmonary arterial hypertension, unchanged. Aorta: Ascending thoracic aorta is upper normal in caliber at 4 cm, unchanged. No focal aneurysm. No dissection. Mild atherosclerotic irregularity. Lungs: The trachea and main bronchi are patent. Chronic mixed interstitial and ground-glass airspace opacity. No acute superimposed infiltrate or airspace consolidation. No pulmonary mass. There are few stable scattered calcified and noncalcified bilateral pulmonary nodules, not exceeding 4 mm and requiring no strict follow-up. Pleural spaces: Unremarkable. No pneumothorax. No pleural effusion. Heart: Normal heart size. No pericardial effusion. Coronary arteries: No significant coronary artery calcifications. Esophagus: Mild esophageal dilatation with intraluminal ingested material compatible with reflux or dysmotility. Mediastinal space: No mediastinal mass or hematoma. Lymph nodes: No mediastinal or hilar lymphadenopathy. Partially calcified mediastinal and bilateral hilar lymph nodes compatible with remote granulomatous disease. Stable mildly prominent periportal and gastrohepatic ligament lymph nodes in the upper abdomen. Liver: Lobulated liver contour concerning for cirrhosis. Bones/joints: Mild osteopenia. Mild degenerative changes of the thoracic spine. Minor thoracic levocurvature. Soft tissues: Unremarkable. IMPRESSION: 1. No acute intrathoracic process. Specifically, no acute pulmonary emboli. 2. Stable chronic lung disease, unchanged from December 26, 2023. 3. Remote calcified granulomatous disease. 4. The ascending thoracic aorta is upper normal in caliber at 4 cm, unchanged. 5. Abnormal liver concerning for cirrhosis.
[2024-04-24 21:52] LABS: Bacteria,Urine 4+ /lpf; WBC,Urine 50-100 #/hpf (0-3)
[2024-04-24] MEDS: CEFTRIAXONE 1 GM 1 GM in 0.9 % SODIUM CHLORIDE 50 ML IV (22:02)
--- NOTE | 2024-04-24 22:25 | PC.NURSE ---
Pt is upstairs for CT
--- NOTE | 2024-04-24 22:38 | PC.NURSE ---
Pt is going to CT prior to going upstairs.
[2024-04-24] MEDS: 0.9 % SODIUM CHLORIDE 50 ML VIAL IV (23:14)
[2024-04-24] MEDS: SODIUM CHLORIDE 0.9% 10ML SYR (RAD ONLY) 10 ML IV (23:14)
[2024-04-24] MEDS: IOPAMIDOL-370 (76%);100ML BOTTLE 150 ML IV (23:14)
--- NOTE | 2024-04-24 23:15 | PC.NURSE ---
Patient arrived to floor via stretcher from Radiology at 23:13.
--- NOTE | 2024-04-24 23:30 | EXP.HP ---
History of Present Illness *Admission Date: 04/24/24 *Reason for visit:: Slowly progressive weakness *History of present illness: This patient who has multiple medical problems including psychiatric problems and on different psychiatric meds. Noted that over the past week she is becoming and progressively weak started falling down to the point she just cannot walk. She noted no change or any other illness or injury before this started. She said it was about a week ago but her relative with her said it was close to 3 weeks she had her Prozac increased and she was started on amitriptyline to help her sleep. Patient is noted that she still has a job and is working in some type of [employer] service. She also noted that she is on thyroid medicine and without that she does not do well. Her psychiatric problems she says her bipolar. Patient has come to the emergency, and has demonstrated she is not able to stand on her own. [facility] Disclaimer: The information contained in this section may have been updated after the patient was seen, as this information can be updated by other users. Medical History (Updated 04/25/24 @ 00:36 by Sherif Osuna APRN) Anxiety Bipolar 1 disorder History of seizures Hypertension Mixed hyperlipidemia History of mastoiditis Vertigo Diabetes Postsurgical fever Hypothyroidism Surgical History History of tubal ligation History of colonoscopy History of cholecystectomy Family History (Updated 04/25/24 @ 00:13 by Magali Schmidt RN) Other COPD (chronic obstructive pulmonary disease) Cancer Hypertension Thyroid disorder Social History (Updated 04/25/24 @ 00:12 by Magali Schmidt RN) Smoking Status: Former smoker second hand exposure: Yes alcohol intake: never substance use type: marijuana current occupational status: retired Travel in the last 8 weeks: None household members: none housing: house 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 current occupational exposures/hazards: No caffeine: Yes Other Medical History Have you received the Flu Vaccine for this season: Yes Have you received the Pneumonia Vaccine: No Review of Systems Review of Systems Review of systems:: pertinent systems reviewed and negative unless documented below Constitutional Constitutional: Reports as per HPI Comments: Patient is alert and oriented she does follow my commands on request she is able to move her legs and her hands, she does not appear in any distress at this time Eyes Eyes: Reports as per HPI Comments: Patient denies any changes in her vision ENT Ears, Nose, Mouth, and Throat: Reports system reviewed and no additional complaints, except as documented and Reports as per HPI Comments: Patient says she has a dry mouth but no other problems with the upper airway or sinuses, *Cardiovascular Cardiovascular: Reports as per HPI Comments: Patient denies any shortness of breath or chest pain *Respiratory Respiratory: Reports as per HPI Comments: Patient denied any type of respiratory problems says I cough every once in a while but nothing more *Gastrointestinal Gastrointestinal: Reports as per HPI Comments: Patient expressed that she did not have any abdominal pain *Genitourinary Genitourinary: Reports as per HPI Comments: Patient denied any dysuria, noting urine showed +1 leuks, *Musculoskeletal Musculoskeletal: Reports as per HPI, Reports abnormal gait and Reports muscle weakness Comments: Patient just says that her body is so weak she cannot walk Integumentary/Breasts Comments: Patient denies any chest wall issues, chest wall or chest pain or breast pain *Neurologic Neurologic: Reports abnormal gait, Reports localized weakness and Reports lack of coordination Psychiatric Psychiatric: Reports as per HPI and Reports mood swings Comments: Patient is diagnosed with bipolar 1. Noting she has had the increase in her Prozac year recently and started on trazodone for sleep. Unsure if this was a week ago or 3 weeks ago as I have 2 reports 1 from the patient and 1 from the relative with her Endocrine Endocrine: Reports as per HPI Hematologic/Lymphatic Hematologic/Lymphatic: Reports as per HPI Allergic/Immunologic Allergic/Immunologic: Reports as per HPI Meds Home Medications and Allergies Home Medications ?Medication ?Instructions ?Recorded ?Confirmed ?Type montelukast 10 mg tablet 10 mg PO PM 11/16/18 04/25/24 History simvastatin 20 mg tablet 20 mg PO PM 11/16/18 04/25/24 History metoprolol tartrate 25 mg tablet 25 mg PO DAILY 11/07/19 04/25/24 History hydroxyzine pamoate 25 mg capsule 25 mg PO DAILYP PRN Anxiety 02/27/22 04/25/24 History losartan 100 mg tablet 100 mg PO DAILY 02/17/23 04/25/24 History fluoxetine 40 mg capsule 40 mg PO AM 04/25/24 04/25/24 History insulin glargine 100 unit/mL (3 30 unit SQ HS 04/25/24 04/25/24 History mL) subcutaneous pen (Basaglar KwikPen U-100 Insulin) lamotrigine 200 mg tablet 200 mg PO AM 04/25/24 04/25/24 History levothyroxine 150 mcg tablet 150 mcg PO AM 04/25/24 04/25/24 History meclizine 25 mg tablet 25 mg PO TIDP PRN Vertigo 04/25/24 04/25/24 History ondansetron 4 mg disintegrating 4 mg PO Q6HP PRN Nausea And 04/25/24 04/25/24 History tablet Vomiting trazodone 50 mg tablet 50 - 150 mg PO HSP PRN Insomnia 04/25/24 04/25/24 History New Prescriptions to Start Prescriptions: Allergies Allergy/AdvReac Type Severity Reaction Status Date / Time No Known Allergies Allergy Verified 02/17/23 09:40 Exam Data for Last 24 hours Vital signs and Labs for Last 24 Hours: Temp Pulse Resp BP Pulse Ox O2 Del Method 97.8 F 105 H 16 229/131 H 92 L Room Air 04/24/24 23:48 04/24/24 23:58 04/24/24 23:48 04/24/24 23:58 04/24/24 23:48 04/24/24 23:48 Laboratory Results - last 24 hr 04/24/24 19:41: WBC 6.7, RBC 4.39, Hgb 13.4, Hct 39.5, MCV 89.9, MCH 30.5, MCHC 33.9, RDW 13.7, Plt Count 159, MPV 7.0 L, Neut % (Auto) 56.5, Lymph % (Auto) 29.7, Powell % (Auto) 8.3, Eos % (Auto) 4.4, Baso % (Auto) 1.1, Neut # (Auto) 3.8, Lymph # (Auto) 2.0, Powell # (Auto) 0.6, Eos # (Auto) 0.3, Baso # (Auto) 0.1, PT 11.4, INR 1.02, D-Dimer 1.05 H, Sodium 139, Potassium 3.2 L, Chloride 102, Carbon Dioxide 29, Anion Gap 11.2, BUN 8, Creatinine 0.70, Estimated Creat Clear 52, Estimated GFR 81, Est GFR ( Amer) 98, Glucose 201 H, Calcium 9.1, Magnesium 1.6, Total Bilirubin 0.8, AST 31, ALT 17, Alkaline Phosphatase 77, NT-Pro-B Natriuret Pep 495 H, Total Protein 7.1, Albumin 3.9, Globulin 3.2, Albumin/Globulin Ratio 1.2, Procalcitonin 0.048, HIV 1&2 Antibody Rapid Nonreactive 04/24/24 19:52: SARS-CoV-2 (PCR) Not detected, Influenza A Untype (PCR) Not detected, Influenza Type B (PCR) Not detected 04/24/24 20:50: Urine Color Yellow, Urine Appearance Sl cloudy, Urine pH 6.0, Ur Specific Chinle 1.020, Urine Protein Negative, Urine Glucose (UA) Negative, Urine Ketones Negative, Urine Blood Negative, Urine Nitrate Negative, Urine Bilirubin Negative, Urine Urobilinogen 0.2, Ur Leukocyte Esterase 1+ A, Urine RBC None, Urine WBC 50-100, Ur Squamous Epith Cells 5-10, Urine Bacteria 4+ I & O for Last 24 hours: Intake & Output 04/22/24 04/23/24 04/24/24 04/25/24 05:59 05:59 05:59 05:59 Weight 152 lb 9.6 oz Radiology Reports for the Last 24 Hours: Examination of the scans and x-rays of the patient showed no acute fractures no acute changes no signs of stroke Constitutional Constitutional: mild distress Comments: Patient is rather stoic she talks about this and, does not seem to be that concerned she knows it is a problem , patient noted she just kind of hurts all over from falling *Routine HEENT Exam Head: Present normocephalic and atraumatic Eye: Present EOMI, PERRL and normal accommodation ENT: Present mucous membranes dry *Routine Neck Exam Neck: Present supple and full ROM Comments: Thyroid is normal exam Routine Chest/Breast/Axilla Exam Comments: Found no tenderness to the chest wall, no sign of injuries equal expansion when breathing *Routine Respiratory Exam Respiratory: Present CTA bilaterally, normal respiratory effort, able to speak in complete sentences and symmetric chest movement Comments: Examination of the Renetta system was perfectly normal no crackles no abnormal sounds *Routine Cardiovascular Exam Cardiovascular: Present RRR, Normal S1, Normal S2 and tachycardia *Routine Abdominal Exam Abdominal: Present soft and normoactive bowel sounds Comments: There was no tenderness on exam the abdomen abdomen was flat *Routine Rectal Exam Rectal:: deferred *Routine Genitalia Exam Genitalia:: deferred *Routine Extremities Exam Extremities: Present full ROM, pulses intact and normal capillary refill Comments: Patient is stiff but when asked to she is able to move both her upper and lower extremities with good range of motion in all joints no signs of edema skin color is normal Routine Back/Spine/Pelvis Exam Comments: I did not have the patient sit up did not turn her but she expressed she was having no pain to her back in any specific spot, examination of the skin found no abnormal bruising *Routine Skin Exam Skin: Present intact, dry and warm Comments: Could not find any abnormal bruising *Routine Neurological Exam Neurological: Present alert, oriented X3, CN II-XII intact, normal tone and normal speech Comments: Noted that the patient is kind of stiff as she speaks more in a monotone voice also noted some tongue movement as if there might be some early tar dive dyskinesia may be related to medications, Routine Psychiatric Exam Psychiatric: Present normal affect, normal thought process, cooperative, good insight and good judgment Comments: Patient was quite easy to take care of she was informative, very cooperative and easy to speak with H&P: Result Impressions 1. Abnormal fatigue with new onset of fallin. Minimal urinary tract infection Imaging and Cardiology CT scan - head: Status: image reviewed by me Additional comments: Besides mild age related changes no acute problems were found Chest x-ray: Status: image reviewed by me Additional comments: May be some mild atelectasis at most CT scan - abdomen: Status: image reviewed by me Additional comments: No acute findings CT scan - chest: Status: image reviewed by me Additional comments: CT of the chest was read with no acute findings but placed a concern about cirrhosis for the liver., It was not noted on the CT of the abdomen. Also her lab work is perfectly normal AST ALT's, hold back in history and they have been normal for quite some time Assessment and Plan *Assessment and plan (1) Acute UTI: Status: Acute Category: Medical Code(s): N39.0 - Urinary tract infection, site not specified (2) Adult failure to thrive: Status: Acute Category: Medical Code(s): R62.7 - Adult failure to thrive (3) Multiple falls: Status: Acute Category: Medical Code(s): R29.6 - Repeated falls (4) Bipolar 1 disorder: Status: Acute Category: Medical Code(s): F31.9 - Bipolar disorder, unspecified (5) Vertigo: Status: Acute Category: Medical Code(s): R42 - Dizziness and giddiness (6) Dizziness: Status: Acute Category: Medical Code(s): R42 - Dizziness and giddiness (7) Nausea & vomiting: Status: Acute Qualifiers: Vomiting type: unspecified Qualified Code(s): R11.2 - Nausea with vomiting, unspecified Category: Medical Code(s): R11.2 - Nausea with vomiting, unspecified (8) Hypertension: Status: Chronic Qualifiers: Hypertension type: primary hypertension Qualified Code(s): I10 - Essential (primary) hypertension Category: Medical Code(s): I10 - Essential (primary) hypertension (9) Hypothyroidism: Status: Chronic Qualifiers: Hypothyroidism type: acquired Qualified Code(s): E03.9 - Hypothyroidism, unspecified Category: Medical Code(s): E03.9 - Hypothyroidism, unspecified (10) Diabetes: Status: Chronic Qualifiers: Diabetes mellitus complication status: with hyperglycemia Diabetes mellitus manager long term care insulin use: unspecified manager long term care insulin use status Diabetes mellitus type: type 2 Qualified Code(s): E11.65 - Type 2 diabetes mellitus with hyperglycemia Category: Medical Code(s): E11.9 - Type 2 diabetes mellitus without complications Plan 74-year-old female with worsening functional decline. Increased dizziness and weakness since initiating trazodone and increasing her Prozac. Discussed case with ER physician, request admission for treatment of UTI, therapy eval, possible placement needs. Medicine agreed to admit for further management. Problems addressed as follows: UTI: Urinalysis grossly abnormal. Urine negative for nitrate, positive leuk esterase, 4+ bacteria. Received empiric antibiotics in the ER. Continue ceftriaxone 1 g daily. Urine culture pending. Failure to thrive Frequent falls Vertigo/dizziness - Sudden onset of falling with weakness and dizziness, patient has been worked up and has not found any significant injury to her physically no fractured bones no significant bruising. Cause of weakness is unknown she has had some medication changes of increased Prozac adding. as a do not for sleep unsure if either 1 of these would be causing her problems. -Resume Prozac. Hold trazodone. Monitor for improvement in symptoms. PT and OT evaluating patient for possible placement versus home health. Bipolar 1: -has been on medication for quite some time had just recently had some advanced is increased Prozac and added trazodone for sleep; adjustments made to meds as above -Continue Lamictal 200 mg daily Hypothyroid: TSH ordered and pending. Long history of hypothyroid. Continue low rocks and 150 mcg daily hypertension: Currently elevated; continue with metoprolol tartrate 25 mg daily and losartan 100 mg daily (irbesartan formulary conversion 150 mg daily) Diabetes: Continue Lantus 30 unit nightly; continue scale insulin with fingersticks ACHS. A1c pending. DNR/DNI Diabetic diet Rounded on patient after nurse practitioner. Personally examined and interviewed patient. Agree with exam findings and care plan as documented.
[2024-04-25] VITALS (7 sets, daily range): BP systolic 140–155; BP diastolic 59–86; PULSE 57–83; RESP 16–18; TEMP 36.5–36.9; O2SAT 91–93; BMI 23.9; BMI 24.0
--- NOTE | 2024-04-25 01:44 | PC.NURSE ---
Patient expressed DNR wishes during admission. DNR wish form has been signed by the patient, bracelet has been applied, and form was witnessed by me (Jarrod Schmidt RN).
[2024-04-25] MEDS: ACETAMINOPHEN 325MG TAB 650 MG PO (01:45)
--- NOTE | 2024-04-25 04:47 | PC.NURSE ---
Addendum entered by Magali Schmidt RN 04/25/24 06:18: Patient's fingerstick blood glucose this morning (for 06:00) was 147; no insulin coverage required at this time. Original Note: Ms Sweetie Hidalgo was newly admitted last night on behalf of the documented diagnoses of failure to thrive, a UTI, and falls. She reports having as much as about 8 falls at home this year. She also has a history of hypertension, bipolar I disorder, hyperlipidemia, vertigo, hypothyroidism, etc. (see list). Patient is alert and oriented x4. A friend/family member has remained at bedside throughout the night. Since arrival to the floor, she was observed to have eyes closed, respirations even and unlabored on room air, and no apparent distress throughout the night. She has not had any complaints of further nausea and/or vomiting since her CT scans. She reports needing assistance with ambulation due to her increased weakness and history of frequent falls. She stated that she usually uses a cane at home, but is skeptical and cautious about her current ambulation status. She has not gotten out of bed thus far. A purewick has remained in place this shift per patient's request. She was given 2 tablets of Tylenol per MAR for a headache; patient was able to rest after receiving. Admission and home medication reconciliation were completed by me this shift. Upon auscultation, patient's lung sounds were clear but diminished, S1/S2 heart sounds could be heard, and bowel sounds were active. Mild tardive dyskinesia was noted (tongue movements). Since arrival to ER/2nd floor, the patient's blood pressures have been very hypertensive (Enrrique OLSON is aware); however, at 04:00, patient's blood pressure decreased from the 200/100s range to 152/86. Patient has not had any further complaints this shift. At this time, she is currently resting supine in bed. No acute changes noted thus far. Bed alarm on. Call light within reach.
[2024-04-25 06:24] LABS: POC Glucose,Bedside 147 (70-110)
[2024-04-25 06:48] LABS: Basophils # 0.1 K/mm3 (0-0.2); Basophils % 0.8 % (0.1-2.0); Eosinophils # 0.2 K/mm3 (0.0-0.4); Eosinophils % 2.3 % (0.1-12.0); Hematocrit 38.6 % (37.0-47.0); Hemoglobin 13.4 g/dL (12.2-16.2); Lymphocytes # 2.2 K/mm3 (0.7-4.5); Lymphocytes % 28.6 % (10-50); Mean Corpuscular HGB Conc 34.7 g/dL (31.8-35.4); Mean Corpuscular Hemoglobin 30.9 pg (27.0-31.2); Mean Platelet Volume 6.9 fl (7.4-10.4); Monocytes # 0.7 K/mm3 (0.1-1.0); Monocytes % 9.1 % (1.7-9.3); Neutrophils # 4.6 K/mm3 (1.8-7.8); Neutrophils % 59.2 % (37.0-80.0); Platelet Count 161 K/mm3 (142-424); Red Blood Count 4.33 M/mm3 (4.20-5.40); Red Cell Distribution Width 13.8 % (11.5-17.5); White Blood Count 7.7 K/mm3 (4.8-10.8)
[2024-04-25 07:03] LABS: Alanine Aminotransferase 16 U/L (12-78); Albumin/Globulin Ratio 1.3 (1.1-1.8); Alkaline Phosphatase 74 U/L (38-126); Anion Gap 8.9 mEq/L (5-15); Aspartate Amino Transferase 32 U/L (14-36); Bilirubin,Total 0.8 mg/dl (0.2-1.3); Blood Urea Nitrogen 7 mg/dl (7-17); Calcium 9.1 mg/dl (8.4-10.2); Carbon Dioxide 29 mmol/L (22.0-30.0); Chloride 105 mmol/L (98-107); Creatinine Clearance Estimated 52 mL/min (50-200); Estimated Glomerular Filt Rate 97 ml/min (>60); GFR (African American) 118 ML/MIN (>60); Glucose 157 mg/dl (74-100); Magnesium 1.6 mg/dl (1.6-2.3); Sodium 140 mmol/L (136-145)
--- NOTE | 2024-04-25 07:49 | HMH.PHAINT1 ---
Pharmacy Intervention Comments: HOME MEDICATIONS VERIFIED VIA OUTPATIENT PHARMACY AND PATIENT INTERVIEW
[2024-04-25 07:52] LABS: Potassium 2.9 mmoL/L (3.5-5.1)
[2024-04-25] MEDS: LEVOTHYROXINE 150MCG (0.15MG)TAB 150 MCG PO (08:05)
[2024-04-25] MEDS: IRBESARTAN 150MG TAB 150 MG PO (09:07)
[2024-04-25] MEDS: MAGNESIUM SULFATE IN WATER 2 GM/50 ML PIGGYBACK IV ×2 (09:07→10:17)
[2024-04-25] MEDS: POTASSIUM CHLORIDE 20MEQ TAB 40 MEQ PO ×3 (09:07→17:13)
[2024-04-25] MEDS: METOPROLOL TARTRATE 25MG TABLET 25 MG PO (09:08)
[2024-04-25] MEDS: lamoTRIgine 100MG TABLET 200 MG PO (09:08)
[2024-04-25] MEDS: FLUOXETINE 20MG CAPSULE 40 MG PO (09:25)
--- NOTE | 2024-04-25 09:39 | HMH.PTEV ---
Physical Therapy Evaluation Rehab PT IP Evaluation Start: 04/25/24 07:39 Freq: ONCE Status: Active Protocol: Document 04/25/24 09:34 [place] (Rec: 04/25/24 09:39 [place] [id number]) Subjective/History History History Per H&P: This patient who has multiple medical problems including psychiatric problems and on different psychiatric meds. Noted that over the past week she is becoming and progressively weak started falling down to the point she just cannot walk. She noted no change or any other illness or injury before this started . She said it was about a week ago but her relative with her said it was close to 3 weeks she had her Prozac increased and she was started on amitriptyline to help her sleep. 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 She also noted that she is on thyroid medicine and without that she does not do well. Her psychiatric problems she says her bipolar. Patient has come to the emergency, and has demonstrated she is not able to stand on her own. Subjective Subjective Pt's sister in room and assisted with providing history. Pt lives at home alone and was IND with mobility without an AD. Pt owns a RW, cane, and rollator. Pt with plans to d/c home with sister so her sister can provide 28/12 assistance. Pt's sister lives in an apartment without steps. New diagnosis of cancer in past 12 No months? Rehab PT IP Eval Objective Appearance Patient Behavior Appropriate,Cooperative Patient Orientation Person,Place,Situation Difficulty following instructions none Speech Pattern Clear Ambulation Patient Able to Ambulate Yes Ambulation Observation IP General Gait Pattern Observation No Deviations/Normal Ambulation Distance (feet) 20 Ambulation Assistive Device Rolling Walker Ambulation Ability Contact Guard/Hand Hold Balance Ability to Arise Able, uses arms to help Sitting Balance Steady, safe Standing Balance Steady, wide stance Dynamic Sitting Balance Ability Good Dynamic Standing Balance Ability Fair Transfers Bed Transfer Ability Supervision/Stand by Sit to Stand Bed Transfer Ability Contact Guard/Hand Hold Rehab PT IP prob,goals,plan Problems Date of Evaluation: 04/25/24 PT IP Problems Bed Mobility,Transfers,Gait, Balance Rehab Potential Rehab Potential Good Equipment Needs Assistive Devices Rolling / Wheeled Walker Plan PT Intervention Plan Bed Mobility,Transfers,Gait, Balance Other Intervention Plan 1-2 times daily Duration LOS Discharge Goals Bed Transfer Ability Independent Sit to Stand Chair Transfer Ability Independent Ambulation Distance (feet) 100 Discharge Plan PT Discharge Plan Pt able to d/c home with / care by sister. PT recommending PT services and for pt to use RW for all ambulation tasks. Pt would benefit from skilled PT while at [facility] to address deficits. Eval Complexity Eval Charge Codes 89633 - Moderate Complexity PHYSICIAN CERTIFICATION: I certify the specified therapy services for Sweetie Hidalgo are required, authorized, and reviewed every 30 days.
--- NOTE | 2024-04-25 09:48 | HMH.OTEV ---
OT Inpatient Evaluation Rehab OT IP Evaluation Start: 04/25/24 07:39 Freq: ONCE Status: Active Protocol: Document 04/25/24 09:[address] [facility] (Rec: 04/25/24 09:47 [facility] [id number]) Rehab OT IP Assessment Subjective History Pt oriented x 3 on arrival and agreeable to engage in therapy evaluation. Pt's sister present and supportive of evaluation. Pt admitted on 04/24/24 due to failure to thrive, UTI, and falls. History and physical report: This patient who has multiple medical problems including psychiatric problems and on different psychiatric meds. Noted that over the past week she is becoming and progressively weak started falling down to the point she just cannot walk. She noted no change or any other illness or injury before this started . She said it was about a week ago but her relative with her said it was close to 3 weeks she had her Prozac increased and she was started on amitriptyline to help her sleep. 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 She also noted that she is on thyroid medicine and without that she does not do well. Her psychiatric problems she says her bipolar. Patient has come to the emergency, and has demonstrated she is not able to stand on her own. Subjective I just feel weak. Pt reports prior to being in the hospital, she lived at home alone. Pt claims normally she is independent with all ADLs such as dressing , bathing and feeding. However, she is dependent upon family (sister) to complete all IADLs such as cooking, cleaning, grocery shopping, etc. Pt does use a cane during functional transfers, but she also has rolling walkers at home. Pt's sister is her next door neighbor. Once discharged from hospital, pt plans to return home with sister for continued assistance. Objective Patient Orientation Person,Place,Birthday Right Upper Extremity Gross ROM WFL Left Upper Extremity Gross ROM WFL Bed Mobility bed mobility-scooting,bed mobility - supine/sit Assist Level Contact Guard/Hand Hold Transfer Training Sit/Stand Transfer Assist Level Contact Guard/Hand Hold Chair Transfer Ability Contact Guard/Hand Hold Chair Transfer Technique Sit to/from Ambulatory Chair Transfer Assistive Devices Rolling Walker Rehab OT IP prob,goals,plan Problems Date of Evaluation: 04/25/24 Rehab Potential Rehab Potential Good Equipment Needs Assistive Devices Rolling / Wheeled Walker Plan OT intervention Plan Bed Mobility,Transfers,Balance ,Self care,Safety,Therapeutic Exercise OT Plan Frequency Daily Duration LOS Discharge Goals Bed Mobility Ability Standby Assistance Sit to Stand Chair Transfer Ability Supervision/Stand by Chair Transfer Ability Supervision/Stand by Chair Transfer Technique Sit to/from Ambulatory Chair Transfer Assistive Devices Rolling Walker Lower Body Dressing Ability Minimal Assistance Upper Body Dressing Ability Standby Assistance Bathing Ability Moderate Assistance Performing Toilet Hygiene Ability Moderate Assistance Overall Commode/Toilet Transfer Ability Standby Assistance,Contact Guard Commode/Toilet Transfer Technique Sit to/from Ambulatory Commode/Toilet Transfer Assistive Grab Bars Devices Oral Care Assist Minimal Assistance Decrease in Endurance Yes Discharge Plan OT Discharge Plan Pt will continue to be seen for OT services while at [facility]. Pt can return home with sister and 28/12 assistance once she is medically stable per physician. Sister is also agreeable with this plan. Therapist does recommends OT evaluation upon return home for continued skilled therapy services. Continued skilled therapy services are important in order for patient to improve strength, safety, endurance, ADL independence, and functional transfers to reach PLOF. Eval Complexity Eval Charge Codes 91488 - Moderate Complexity PHYSICIAN CERTIFICATION: I certify the specified therapy services for Sweetie Hidalgo are required, authorized, and reviewed every 30 days.
--- NOTE | 2024-04-25 10:22 | SW/DCPLANNER ---
Addendum entered by Mary Lloyd 04/26/24 10:43: Patient information/order has been faxed to [facility]uced[facility]/ [facility]. Patient will discharge home today. Original Note: I spoke w/ this patient regarding plans once medically stable for discharge. PT/OT evaluated patient and recommended returning home w/ home health services. Patient stated that she plans to move in w/ her sister (same apartment complex [address]) at time of discharge. Patient and sister are agreeable to home health services w/ no preference. I will set up home health at time of discharge. Patient stated that she has a rolling walker and rollator walker at home. Discharge date is unknown at this time.
[2024-04-25 11:20] LABS: POC Glucose,Bedside 174 (70-110)
--- NOTE | 2024-04-25 17:09 | P.PN_ITS ---
Subjective *Date: 04/25/24 *Time: 17:09 Interval history: Patient states she feels a little bit better today. Awaiting therapy eval. Stable on room air. No nausea or vomiting. Blood better rolled on the. Denies any chest pain or shortness of breath Medical Exam Vital signs and Labs for Last 24 Hours: Vital Signs Temp Pulse Pulse Resp BP BP Pulse Ox 04/25/24 16:00 98.5 F 64 18 155/69 H 04/25/24 15:00 04/25/24 13:00 04/25/24 12:00 98.0 F 57 L 18 142/69 H 93 L 04/25/24 11:00 04/25/24 09:00 04/25/24 08:00 04/25/24 08:00 97.8 F 83 16 152/80 H 92 L 04/25/24 06:40 04/25/24 05:00 04/25/24 04:00 98.5 F 76 16 152/86 H 92 L 04/25/24 03:00 04/25/24 01:00 04/24/24 23:50 113 H 181/104 H 04/24/24 23:49 105 H 229/131 H 04/24/24 23:48 97.8 F 101 H 16 267/132 H 92 L 04/24/24 23:00 04/24/24 22:19 98.0 F 73 20 199/78 H 04/24/24 22:11 102 H 18 94 L 04/24/24 19:48 65 16 200/91 H 94 L 04/24/24 19:42 98.4 F 80 20 205/84 H 94 L O2 Del Method 04/25/24 16:00 Room Air 04/25/24 15:00 Room Air 04/25/24 13:00 Room Air 04/25/24 12:00 Room Air 04/25/24 11:00 Room Air 04/25/24 09:00 Room Air 04/25/24 08:00 Room Air 04/25/24 08:00 Room Air 04/25/24 06:40 Room Air 04/25/24 05:00 Room Air 04/25/24 04:00 Room Air 04/25/24 03:00 Room Air 04/25/24 01:00 Room Air 04/24/24 23:50 04/24/24 23:49 04/24/24 23:48 Room Air 04/24/24 23:00 Room Air 04/24/24 22:19 Room Air 04/24/24 22:11 Room Air 04/24/24 19:48 Room Air 04/24/24 19:42 Room Air Intake and Output 04/25/24 04/25/24 04/25/24 07:59 15:59 23:59 Intake Total 120 / 960 840 / 960 Output Total 750 / 750 0 / 750 Balance -630 / 210 840 / 210 Intake: Intake, Oral Amount 120 / 960 840 / 960 Output: Output, Urine Amount 750 / 750 0 / 750 Other: Number of Unmeasured Voids 0 1 Number of Bowel Movements 1 Weight 69.428 kg Patient Weight 04/25/24 23:59 Weight 69.428 kg Laboratory Results - last 24 hr 04/24/24 19:41: WBC 6.7, RBC 4.39, Hgb 13.4, Hct 39.5, MCV 89.9, MCH 30.5, MCHC 33.9, RDW 13.7, Plt Count 159, MPV 7.0 L, Neut % (Auto) 56.5, Lymph % (Auto) 29.7, [place] % (Auto) 8.3, Eos % (Auto) 4.4, Baso % (Auto) 1.1, Neut # (Auto) 3.8, Lymph # (Auto) 2.0, [place] # (Auto) 0.6, Eos # (Auto) 0.3, Baso # (Auto) 0.1, PT 11.4, INR 1.02, D-Dimer 1.05 H, Sodium 139, Potassium 3.2 L, Chloride 102, Carbon Dioxide 29, Anion Gap 11.2, BUN 8, Creatinine 0.70, Estimated Creat Clear 52, Estimated GFR 81, Est GFR ( Amer) 98, Glucose 201 H, Calcium 9.1, Magnesium 1.6, Total Bilirubin 0.8, AST 31, ALT 17, Alkaline Phosphatase 77, NT-Pro-B Natriuret Pep 495 H, Total Protein 7.1, Albumin 3.9, Globulin 3.2, Albumin/Globulin Ratio 1.2, Procalcitonin 0.048, HIV 1&2 Antibody Rapid Nonreactive 04/24/24 19:52: SARS-CoV-2 (PCR) Not detected, Influenza A Untype (PCR) Not detected, Influenza Type B (PCR) Not detected 04/24/24 20:50: Urine Color Yellow, Urine Appearance Sl cloudy, Urine pH 6.0, Ur Specific [place] 1.020, Urine Protein Negative, Urine Glucose (UA) Negative, Urine Ketones Negative, Urine Blood Negative, Urine Nitrate Negative, Urine Pa irubin Negative, Urine Urobilinogen 0.2, Ur Leukocyte Esterase 1+ A, Urine RBC None, Urine WBC 50-100, Ur Squamous Epith Cells 5-10, Urine Bacteria 4+ 04/25/24 05:53: WBC 7.7, RBC 4.33, Hgb 13.4, Hct 38.6, MCV 89.0, MCH 30.9, MCHC 34.7, RDW 13.8, Plt Count 161, MPV 6.9 L, Neut % (Auto) 59.2, Lymph % (Auto) 28.6, [place] % (Auto) 9.1, Eos % (Auto) 2.3, Baso % (Auto) 0.8, Neut # (Auto) 4.6, Lymph # (Auto) 2.2, [place] # (Auto) 0.7, Eos # (Auto) 0.2, Baso # (Auto) 0.1, Sodium 140, Potassium 2.9 L*, Chloride 105, Carbon Dioxide 29, Anion Gap 8.9, BUN 7, Creatinine 0.60, Estimated Creat Clear 52, Estimated GFR 97, Est GFR ( Amer) 118 D, Glucose 157 H D, Calcium 9.1, Magnesium 1.6, Total Bilirubin 0.8, AST 32, ALT 16, Alkaline Phosphatase 74, Total Protein 7.0, Albumin 4.0, Globulin 3.0, Albumin/Globulin Ratio 1.3, TSH 3.50 04/25/24 06:17: POC Glucose 147 H 04/25/24 11:10: POC Glucose 174 H I & O for Labs for Last 24 Hours: Intake & Output 04/22/24 04/23/24 04/24/24 04/25/24 23:59 23:59 23:59 23:59 Intake Total 960 / 960 Output Total 0 / 0 750 / 750 Balance 0 / 120 210 / 210 Weight 68.353 kg 69.428 kg Microbiology Reports for the Last 24 Hours: Microbiology 04/24/24 20:50 Urine,Clean Catch Urine Culture - Preliminary Gram Negative Rods Constitutional: Present no acute distress, average body habitus, chronically ill appearing and cooperative Head: Present atraumatic and normocephalic ENT: Present normal exam Respiratory: Present prolonged expiratory phase; Absent respiratory distress, rhonchi, wheezes or crackles Cardiac: Present Reg Rate and Rhythm GI: Present soft; Absent distention or tenderness Skin: Present intact; Absent cyanosis Neuro: Present Grossly Intact, alert, awake, oriented x 3 and moves all extremities Assessment and Plan *Assessment and plan (1) Acute UTI: Status: Acute Category: Medical Code(s): N39.0 - Urinary tract infection, site not specified (2) Adult failure to thrive: Status: Acute Category: Medical Code(s): R62.7 - Adult failure to thrive (3) Multiple falls: Status: Acute Category: Medical Code(s): R29.6 - Repeated falls (4) Bipolar 1 disorder: Status: Acute Category: Medical Code(s): F31.9 - Bipolar disorder, unspecified (5) Vertigo: Status: Acute Category: Medical Code(s): R42 - Dizziness and giddiness (6) Dizziness: Status: Acute Category: Medical Code(s): R42 - Dizziness and giddiness (7) Nausea & vomiting: Status: Acute Qualifiers: Vomiting type: unspecified Qualified Code(s): R11.2 - Nausea with vomiting, unspecified Category: Medical Code(s): R11.2 - Nausea with vomiting, unspecified (8) Hypertension: Status: Chronic Qualifiers: Hypertension type: primary hypertension Qualified Code(s): I10 - Essential (primary) hypertension Category: Medical Code(s): I10 - Essential (primary) hypertension (9) Hypothyroidism: Status: Chronic Qualifiers: Hypothyroidism type: acquired Qualified Code(s): E03.9 - Hypothyroidism, unspecified Category: Medical Code(s): E03.9 - Hypothyroidism, unspecified (10) Diabetes: Status: Chronic Qualifiers: Diabetes mellitus complication status: with hyperglycemia Diabetes mellitus retirement insulin use: unspecified retirement insulin use status Diabetes mellitus type: type 2 Qualified Code(s): E11.65 - Type 2 diabetes mellitus with hyperglycemia Category: Medical Code(s): E11.9 - Type 2 diabetes mellitus without complications Plan 74-year-old female with worsening functional decline. Increased dizziness and weakness since initiating trazodone and increasing her Prozac. Discussed case with ER physician, request admission for treatment of UTI, therapy eval, possible placement needs. Medicine agreed to admit for further management. Problems addressed as follows: UTI Hypokalemia Hypomagnesemia - urinalysis grossly abnormal. Urine negative for nitrate, positive leuk esterase, 4+ bacteria. -Continue ceftriaxone 1 g daily -Urine culture with 100,000 gram-negative rods, awaiting speciation and s ensitivity. -Kidney function normal with BUN 7, creatinine 0.6. Electrolyte disturbances with potassium 2.9, magnesium 1.6. Replacing per protocol both oral and IV Failure to thrive Frequent falls Vertigo/dizziness - Sudden onset of falling with weakness and dizziness, patient has been worked up and has not found any significant injury to her physically no fractured bones no significant bruising. Cause of weakness is unknown she has had some medication changes of increased Prozac adding. as a do not for sleep unsure if either 1 of these would be causing her problems. -Continue Prozac 40 mg daily, Hold trazodone. Monitor for improvement in symptoms. PT and OT evaluating patient for possible placement versus home health. Bipolar 1: -has been on medication for quite some time had just recently had some advanced is increased Prozac and added trazodone for sleep; adjustments made to meds as above -Continue Lamictal 200 mg daily Hypothyroid: TSH normal at 3.5 continue levothyroxine at 150 mcg daily hypertension: continue with metoprolol tartrate 25 mg daily and irbesartan formulary conversion 150 mg daily Diabetes: Continue Lantus 30 unit nightly; continue scale insulin with fingersticks ACHS. A1c pending. DNR/DNI Diabetic diet
--- NOTE | 2024-04-25 17:53 | PC.NURSE ---
added pts sister Antoine Childers to her contact list per her request. pt has done well with x1 assist and a walker with ambulating. up for all meals in the chair at bs with a decent appetite. sister antoine has been at bs majority of the day, helping her as needed. pt has had multiple bms this shift stating this is my usual . pt remains a&o x4 and appears tired but otherwise has done well. no needs at this time, call christopher within reach pt is requesting a shower prior to going to bed tonight, will pass this along to the oncoming shift.
[2024-04-25] MEDS: PANTOPRAZOLE 40MG TABLET 40 MG PO (21:39)
[2024-04-25] MEDS: CEFTRIAXONE 1 GM 1 GM in 0.9 % SODIUM CHLORIDE 50 ML IV (21:39)
[2024-04-25] MEDS: PRAVASTATIN 40MG TAB 40 MG PO (21:39)
[2024-04-25] MEDS: INSULIN GLARGINE 100 UNITS/ML 3ML FLEXPEN 30 UNIT SUBCUT (21:49)
[2024-04-25 23:04] LABS: POC Glucose,Bedside 142 (70-110)
[2024-04-26 04:00] VITALS: BP 202/106; PULSE 78; RESP 16; TEMP 36.4; O2SAT 91; BMI 28.2
--- NOTE | 2024-04-26 04:41 | PC.NURSE ---
Addendum entered by Magali Schmidt RN 04/26/24 06:15: Patient's fingerstick blood glucose at 21:00 was 142. At 06:00 this morning, her blood glucose at the bedside was 174. Patient has not had any short-acting insulin ordered/given since her stay, and she stated that she does not normally take a short-acting insulin at home. Patient takes Basaglar at home and has been receiving Lantus during this hospital visit. Enrrique OLSON was paged at this time to inquire about giving any insulin coverage for the reading. He reported that it will not be necessary at this time. Patient is considerable for discharge today. Original Note: Patient is alert and oriented x4. Patient was observed to have eyes closed, respirations even and unlabored on room air, and no apparent distress throughout the night. Patient has been self-turning in bed; she also got up to the side of the bed to drink a Starry soda and eat an orange sherbet ice cream for a bedtime snack. She has been ambulating fairly to the bathroom with assistance via walker. Patient has been recommended home health vs placement per MD/PT/OT reports. She has not had any complaints this shift. She has received her scheduled medications and glargine insulin per AUG. Upon auscultation, patient's lung sounds were clear but slightly diminished, S1/S2 heart sounds could be heard, and bowel sounds were active. Blood pressures have been slightly elevated this shift; other vital signs have remained relatively stable. Electrolyte protocol ongoing. At this time, the patient is resting in bed. No acute changes noted. Call light within reach.
--- NOTE | 2024-04-26 05:32 | PC.NURSE ---
Addendum entered by Magali Schmidt RN 04/26/24 06:03: Patient will also be given 2 tablets of PRN Tylenol per AUG due to reports of a headache. Addendum entered by Magali Schmidt RN 04/26/24 05:43: A new order for nifedipine 10 mg PO ONCE was obtained. Original Note: This morning, the patient's blood pressures were found to be highly elevated with an automatic reading of 215/93 and a manual reading of 202/106. Patient was resting in bed during her vital sign assessment without any complaints. Enrrique OLSON was paged at this time to inform him about the hypertensive readings. He stated that he will analyze her charts again and come up with an intervention.
--- NOTE | 2024-04-26 05:39 | EXP.EVENT.NO ---
Problem: Nurse called from the floor to let me know she is checking regular vital signs of the patient's done well all night and systolic blood pressure greater than 200 on manual and cuff.. exam: She reported the patient was doing well asymptomatic, plan: The patient is on 2 blood pressure medicines now had been doing well with the beta-khari. That was added, question whether or not it is lasting long enough it is due again at approximately 9 AM this morning., Will give 1 dose in the feta pain 10 mg, to see if this will have any effect on the blood pressure and at least get a closer to 170 instead of being above 200 patient is asymptomatic at this present time.
[2024-04-26] MEDS: LEVOTHYROXINE 150MCG (0.15MG)TAB 150 MCG PO (06:04)
[2024-04-26] MEDS: ACETAMINOPHEN 325MG TAB 650 MG PO (06:05)
[2024-04-26] MEDS: NIFEdipine 10MG CAPSULE 10 MG PO (06:05)
[2024-04-26 06:32] LABS: Alanine Aminotransferase 14 U/L (12-78); Albumin Level 3.7 g/dl (3.5-5.0); Albumin/Globulin Ratio 1.3 (1.1-1.8); Alkaline Phosphatase 67 U/L (38-126); Anion Gap 9.8 mEq/L (5-15); Aspartate Amino Transferase 30 U/L (14-36); Bilirubin,Total 0.7 mg/dl (0.2-1.3); Blood Urea Nitrogen 10 mg/dl (7-17); Calcium 8.9 mg/dl (8.4-10.2); Carbon Dioxide 28 mmol/L (22.0-30.0); Chloride 105 mmol/L (98-107); Creatinine Clearance Estimated 53 mL/min (50-200); Estimated Glomerular Filt Rate 81 ml/min (>60); GFR (African American) 98 ML/MIN (>60); Globulin 2.9 g/dL (1.3-3.2); Glucose 155 mg/dl (74-100); Magnesium 2.1 mg/dl (1.6-2.3); Potassium 4.8 mmoL/L (3.5-5.1); Sodium 138 mmol/L (136-145); Total Protein,Serum 6.6 g/dl (6.3-8.2)
[2024-04-26 06:57] LABS: Basophils # 0.1 K/mm3 (0-0.2); Eosinophils # 0.3 K/mm3 (0.0-0.4); Eosinophils % 5.1 % (0.1-12.0); Hematocrit 38.1 % (37.0-47.0); Lymphocytes # 1.8 K/mm3 (0.7-4.5); Lymphocytes % 31.9 % (10-50); Mean Corpuscular Hemoglobin 30.3 pg (27.0-31.2); Mean Corpuscular Volume 88.9 fl (81-99); Mean Platelet Volume 6.9 fl (7.4-10.4); Monocytes # 0.5 K/mm3 (0.1-1.0); Monocytes % 8.2 % (1.7-9.3); Neutrophils # 3.1 K/mm3 (1.8-7.8); Neutrophils % 53.8 % (37.0-80.0); Platelet Count 153 K/mm3 (142-424); Red Blood Count 4.28 M/mm3 (4.20-5.40); White Blood Count 5.7 K/mm3 (4.8-10.8)
[2024-04-26 07:14] LABS: HCV Ab Non Reactive (Non Reactive)
[2024-04-26 08:00] VITALS: BP 160/61; PULSE 71; RESP 16; TEMP 36.5; O2SAT 92
[2024-04-26] MEDS: FLUOXETINE 20MG CAPSULE 40 MG PO (08:29)
[2024-04-26] MEDS: CARVEDILOL 6.25MG TABLET 6.25 MG PO (08:29)
[2024-04-26] MEDS: lamoTRIgine 100MG TABLET 200 MG PO (08:29)
[2024-04-26] MEDS: IRBESARTAN 150MG TAB 150 MG PO (08:29)
[2024-04-26 08:32] LABS: Hemoglobin A1C 6.2 % (4.0-6.0)
--- NOTE | 2024-04-26 09:29 | P.DS_ITS ---
General Admission date:: 04/24/24 Discharge date: 04/26/24 HPI HPI HPI: This patient who has multiple medical problems including psychiatric problems and on different psychiatric meds. Noted that over the past week she is becoming and progressively weak started falling down to the point she just cannot walk. She noted no change or any other illness or injury before this started. She said it was about a week ago but her relative with her said it was close to 3 weeks she had her Prozac increased and she was started on amitriptyline to help her sleep. Patient is noted that she still has a job and is working in some type of [employer] service. She also noted that she is on thyroid medicine and without that she does not do well. Her psychiatric problems she says her bipolar. Patient has come to the emergency, and has demonstrated she is not able to stand on her own. Hospital Course Hospital Course Hospital Course: 74-year-old female with worsening functional decline. Increased dizziness and weakness since initiating trazodone and increasing her Prozac. Discussed case with ER physician, request admission for treatment of UTI, therapy eval, possible placement needs. Medicine agreed to admit for further management. Patient did well during admission. Therapy evaluated, stable to discharge home with assistance from her sister and home health. Continue management of infection as below. Overall doing well. Stable to discharge home. Problems addressed as follows: UTI Hypokalemia Hypomagnesemia - urinalysis grossly abnormal. Urine negative for nitrate, positive leuk esterase, 4+ bacteria. Initiated on ceftriaxone. Urine culture positive for Proteus. Will transition to levofloxacin to complete 5 days total of antibiotics. Kidney function normal on day of discharge and BUN of 10, creatinine 0.7. Electrolytes improved during admission with potassium and magnesium along with sodium normal. White count normal at 5.7. Failure to thrive Frequent falls Vertigo/dizziness - Sudden onset of falling with weakness and dizziness, patient has been worked up and has not found any significant injury to her physically no fractured bones no significant bruising. Cause of weakness is unknown she has had some medication changes of increased Prozac and addition of trazodone for sleep. Will hold trazodone. Vertigo persistent but longstanding. More stable on feet. Therapy working with patient during admission. Will discharge home with home health. Bipolar 1: -has been on medication for quite some time had just recently had some advanced is increased Prozac and added trazodone for sleep; adjustments made to meds as above. Will continue Prozac. Discontinue trazodone. Continue Lamictal 200 mg daily Hypothyroid: TSH normal at 3.5 continue levothyroxine at 150 mcg daily hypertension: continue with metoprolol tartrate 25 mg daily and irbesartan formulary conversion 150 mg daily Diabetes: Continue Lantus 30 unit nightly; A1c improved at 6.2. Stable to discharge home. Referred to home health for further management after discharge. Exam Data for Last 24 hours Vital signs and Labs for Last 24 Hours: Temp Pulse Resp BP Pulse Ox O2 Del Method 97.7 F 71 16 160/61 H 92 L Room Air 04/26/24 08:00 04/26/24 08:00 04/26/24 08:00 04/26/24 08:00 04/26/24 08:00 04/26/24 08:00 Laboratory Results - last 24 hr 04/24/24 19:41: Hepatitis C Antibody Non reactive 04/24/24 20:50: Urine Color Yellow, Urine Appearance Sl cloudy, Urine pH 6.0, Ur Specific [place] 1.020, Urine Protein Negative, Urine Glucose (UA) Negative, Urine Ketones Negative, Urine Blood Negative, Urine Nitrate Negative, Urine Bilirubin Negative, Urine Urobilinogen 0.2, Ur Leukocyte Esterase 1+ A, Urine RBC None, Urine WBC 50-100, Ur Squamous Epith Cells 5-10, Urine Bacteria 4+ 04/25/24 11:10: POC Glucose 174 H 04/25/24 21:50: POC Glucose 142 H 04/26/24 05:54: WBC 5.7 D, RBC 4.28, Hgb 13.0, Hct 38.1, MCV 88.9, MCH 30.3, MCHC 34.0, RDW 14.0, Plt Count 153, MPV 6.9 L, Neut % (Auto) 53.8, Lymph % (Auto) 31.9, [place] % (Auto) 8.2, Eos % (Auto) 5.1, Baso % (Auto) 1.0, Neut # (Auto) 3.1, Lymph # (Auto) 1.8, [place] # (Auto) 0.5, Eos # (Auto) 0.3, Baso # (Auto) 0.1, Sodium 138, Potassium 4.8 D, Chloride 105, Carbon Dioxide 28, Anion Gap 9.8, BUN 10 D, Creatinine 0.70, Estimated Creat Clear 53, Estimated GFR 81, Est GFR ( Amer) 98, Glucose 155 H, Hemoglobin A1c 6.2 H, Calcium 8.9, Magnesium 2.1 D, Total Bilirubin 0.7, AST 30, ALT 14, Alkaline Phosphatase 67, Total Protein 6.6, Albumin 3.7, Globulin 2.9, Albumin/Globulin Ratio 1.3 I & O for Last 24 hours: Intake & Output 04/23/24 04/24/24 04/25/24 04/26/24 23:59 23:59 23:59 23:59 Intake Total 1320 / 1592 632 / 632 Output Total 0 / 0 750 / 750 Balance 0 / 120 570 / 842 632 / 632 Weight 68.353 kg 69.428 kg 69.57 kg Microbiology Reports for the Last 24 Hours: Microbiology 04/24/24 20:50 Urine,Clean Catch Urine Culture - Final Proteus mirabilis Constitutional Constitutional: no acute distress, average body habitus, chronically ill appearing and cooperative *Routine HEENT Exam Head: Present normocephalic Eye: Present EOMI and PERRL ENT: Present mucous membranes moist *Routine Neck Exam Neck: Present supple; Absent lymphadenopathy *Routine Respiratory Exam Respiratory: Present CTA bilaterally; Absent rhonchi, wheezes or crackles *Routine Cardiovascular Exam Cardiovascular: Present RRR *Routine Abdominal Exam Abdominal: Present soft and normoactive bowel sounds; Absent tenderness *Routine Rectal Exam Patient deferred: visual exam *Routine Exam Patient deferred: external exam *Routine Extremities Exam Extremities: Absent cyanosis, clubbing or edema *Routine Skin Exam Skin: Present intact and warm; Absent rash *Routine Neurological Exam Neurological: Present alert, oriented X3 and moving all extremities; Absent altered mental status Results Data Completed and Pending Labs on day of discharge: Labs from last 24 hours 04/26/24 04/25/24 04/25/24 05:54 21:50 11:10 WBC 5.7 D RBC 4.28 Hgb 13.0 Hct 38.1 MCV 88.9 MCH 30.3 MCHC 34.0 RDW 14.0 Plt Count 153 MPV 6.9 L Neut % (Auto) 53.8 Lymph % (Auto) 31.9 [place] % (Auto) 8.2 Eos % (Auto) 5.1 Baso % (Auto) 1.0 Neut # (Auto) 3.1 Lymph # (Auto) 1.8 [place] # (Auto) 0.5 Eos # (Auto) 0.3 Baso # (Auto) 0.1 Sodium 138 Potassium 4.8 D Chloride 105 Carbon Dioxide 28 Anion Gap 9.8 BUN 10 D Creatinine 0.70 Estimated Creat Clear 53 Estimated GFR 81 Est GFR ( Amer) 98 Glucose 155 H POC Glucose 142 H 174 H Hemoglobin A1c 6.2 H Calcium 8.9 Magnesium 2.1 D Total Bilirubin 0.7 AST 30 ALT 14 Alkaline Phosphatase 67 Total Protein 6.6 Albumin 3.7 Globulin 2.9 Albumin/Globulin Ratio 1.3 Urine Color Urine Appearance Urine pH Ur Specific [place] Urine Protein Urine Glucose (UA) Urine Ketones Urine Blood Urine Nitrate Urine Bilirubin Urine Urobilinogen Ur Leukocyte Esterase Urine RBC Urine WBC Ur Squamous Epith Cells Urine Bacteria Hepatitis C Antibody 04/24/24 04/24/24 20:50 19:41 WBC RBC Hgb Hct MCV MCH MCHC RDW Plt Count MPV Neut % (Auto) Lymph % (Auto) [place] % (Auto) Eos % (Auto) Baso % (Auto) Neut # (Auto) Lymph # (Auto) [place] # (Auto) Eos # (Auto) Baso # (Auto) Sodium Potassium Chloride Carbon Dioxide Anion Gap BUN Creatinine Estimated Creat Clear Estimated GFR Est GFR ( Amer) Glucose POC Glucose Hemoglobin A1c Calcium Magnesium Total Bilirubin AST ALT Alkaline Phosphatase Total Protein Albumin Globulin Albumin/Globulin Ratio Urine Color Yellow Urine Appearance Sl cloudy Urine pH 6.0 Ur Specific [place] 1.020 Urine Protein Negative Urine Glucose (UA) Negative Urine Ketones Negative Urine Blood Negative Urine Nitrate Negative Urine Bilirubin Negative Urine Urobilinogen 0.2 Ur Leukocyte Esterase 1+ A Urine RBC None Urine WBC 50-100 Ur Squamous Epith Cells 5-10 Urine Bacteria 4+ Hepatitis C Antibody Non reactive DS: Diagnosis Discharge Diagnosis (1) Acute UTI: Status: Acute Code(s): N39.0 - Urinary tract infection, site not specified (2) Adult failure to thrive: Status: Acute Code(s): R62.7 - Adult failure to thrive (3) Multiple falls: Status: Acute Code(s): R29.6 - Repeated falls (4) Bipolar 1 disorder: Status: Acute Code(s): F31.9 - Bipolar disorder, unspecified (5) Vertigo: Status: Acute Code(s): R42 - Dizziness and giddiness (6) Dizziness: Status: Acute Code(s): R42 - Dizziness and giddiness (7) Nausea & vomiting: Status: Acute Code(s): R11.2 - Nausea with vomiting, unspecified Qualifiers: Vomiting type: unspecified Qualified Code(s): R11.2 - Nausea with vomiting, unspecified (8) Hypertension: Status: Chronic Code(s): I10 - Essential (primary) hypertension Qualifiers: Hypertension type: primary hypertension Qualified Code(s): I10 - Essential (primary) hypertension (9) Hypothyroidism: Status: Chronic Code(s): E03.9 - Hypothyroidism, unspecified Qualifiers: Hypothyroidism type: acquired Qualified Code(s): E03.9 - Hypothyroidism, unspecified (10) Diabetes: Status: Chronic Code(s): E11.9 - Type 2 diabetes mellitus without complications Qualifiers: Diabetes mellitus complication status: with hyperglycemia 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 use: unspecified long-term insulin use status Diabetes mellitus type: type 2 Qualified Code(s): E11.65 - Type 2 diabetes mellitus with hyperglycemia Meds Home Medications and Allergies Home Medications ?Medication ?Instructions ?Recorded ?Confirmed ?Type montelukast 10 mg tablet 10 mg PO PM 11/16/18 04/25/24 History simvastatin 20 mg tablet 20 mg PO PM 11/16/18 04/25/24 History hydroxyzine pamoate 25 mg capsule 25 mg PO DAILYP PRN Anxiety 02/27/22 04/25/24 History losartan 100 mg tablet 100 mg PO DAILY 02/17/23 04/25/24 History fluoxetine 40 mg capsule 40 mg PO AM 04/25/24 04/25/24 History insulin glargine 100 unit/mL (3 30 unit SQ HS 04/25/24 04/25/24 History mL) subcutaneous pen (Basaglar KwikPen U-100 Insulin) lamotrigine 200 mg tablet 200 mg PO AM 04/25/24 04/25/24 History levothyroxine 150 mcg tablet 150 mcg PO AM 04/25/24 04/25/24 History meclizine 25 mg tablet 25 mg PO TIDP PRN Vertigo 04/25/24 04/25/24 History ondansetron 4 mg disintegrating 4 mg PO Q6HP PRN Nausea And 04/25/24 04/25/24 History tablet Vomiting levofloxacin 750 mg tablet 750 mg PO DAILY 2 days #2 tabs 04/26/24 Rx metoprolol tartrate 25 mg tablet 25 mg PO BID 30 days #60 tabs 04/26/24 Rx New Prescriptions to Start Prescriptions: Alfonso Castro metoprolol tartrate Alfonso Mercado Allergies Allergy/AdvReac Type Severity Reaction Status Date / Time No Known Allergies Allergy Verified 02/17/23 09:40 Discharge Plan Disposition Patient Disposition: Home Health Service Discharge Order Discharge Orders: Discharge Order (Routine); Ordered 04/26/24 Ordered By: Alfonso Mercado Follow up Plan Follow up with: Radha Tapia [Primary Care Provider] - 05/09/24 11:00 am Prescriptions/Medication Reconciliation: New levofloxacin 750 mg tablet 750 mg PO DAILY 2 Days Qty: 2 0RF Rx Instructions: first dose 04/27/24 Continued losartan 100 mg tablet 100 mg PO DAILY simvastatin 20 MG tablet 20 mg PO PM montelukast 10 MG tablet 10 mg PO PM hydroxyzine pamoate 25 mg capsule 25 mg PO DAILYP PRN (Reason: Anxiety) Patient Comments: TAKE 1-2 CAPSULES (25-50 MG) BY MOUTH EVERY 6 HOURS NEEDED FOR ANXIETY OR INSOMNIA fluoxetine 40 mg capsule 40 mg PO AM Patient Comments: TAKE 1 CAPSULE BY MOUTH EVERY DAY IN THE MORNING levothyroxine 150 mcg tablet 150 mcg PO AM Patient Comments: TAKE 1 TABLET BY MOUTH EVERY DAY IN THE MORNING lamotrigine 200 mg tablet 200 mg PO AM Patient Comments: TAKE 1 TABLET EVERY DAY BY ORAL ROUTE IN THE MORNING. insulin glargine [Basaglar KwikPen U-100 Insulin] 100 unit/mL (3 mL) insulin pen 30 unit SQ HS Patient Comments: INJECT 30 UNITS SUBCUTANEOUSLY EVERY NIGHT AT BEDTIME meclizine 25 mg tablet 25 mg PO TIDP PRN (Reason: Vertigo) Patient Comments: TAKE ONE TABLET BY MOUTH THREE TIMES DAILY NEEDED FOR vertigo ondansetron 4 mg tablet,disintegrating 4 mg PO Q6HP PRN (Reason: Nausea And Vomiting) Patient Comments: dissolve ONE tablet in MOUTH every SIX TO EIGHT hours as needed FOR nausea Rx Instructions: DISSOLVE ONE TABLET BY MOUTH EVERY SIX TO EIGHT HOURS NEEDED FOR NAUSEA Changed metoprolol tartrate 25 MG tablet 25 mg PO BID 30 Days Qty: 60 0RF Discontinued trazodone 50 mg tablet 50 - 150 mg PO HSP PRN (Reason: Insomnia) Patient Comments: TAKE 1 TO 3 TABLETS BY MOUTH AT BEDTIME NEEDED FOR INSOMNIA Problem Reconciliation Problems Reviewed?: Yes Patient Discharge Instructions ACTIVITY: Continue current activity DIET: continue same diet Patient Instructions: How to Prevent Falls, DI for Failure to Thrive Print Language: Upper Sorbian Providers Primary Care Provider: Radha Tapia Admit Provider: Nigel Herrera Attending Provider: Nigel Herrera
[2024-04-26] MEDS: LEVOFLOXACIN/D5W 750 MG/150 ML 750 MG/150 ML PIGGYBACK 100 MG IV (09:59)
--- NOTE | 2024-04-28 10:37 | SW/DCPLANNER ---
Called Patient x2 and was not able to leave a message each time. Connor BLANC Mold Capper
[2024-04-28 13:42] LABS: POC Glucose,Bedside 174 (70-110)
== END 2024-04-26 13:08 | disposition home health service (06) ==
LOC: ER 21:56 → 2ND 22:22
PROVIDERS: Internal Medicine Adolescent Medicine; Nurse Practitioner Family; Physician Assistant; Admitting Provider Student in an Organized Health Care Education/Training Program; Emergency Provider Emergency Medicine; PCP Nurse Practitioner Family; Visit Provider Student in an Organized Health Care Education/Training Program
DX: N39.0 Urinary tract infection, site not specified (principal); R62.7 Adult failure to thrive; R29.6 Repeated falls; F31.9 Bipolar disorder, unspecified; R42 Dizziness and giddiness; R11.2 Nausea with vomiting, unspecified; I10 Essential (primary) hypertension; E03.9 Hypothyroidism, unspecified; E11.65 Type 2 diabetes mellitus with hyperglycemia; Z60.2 Problems related to living alone; Z87.891 Personal history of nicotine dependence; E87.6 Hypokalemia; Z79.4 Long term (current) use of insulin; Z79.899 Other long term (current) drug therapy
CPT/HCPCS: 36415; 70450; 70496; 70498; 71045; 71275; 80053; 81001; 82962; 83036; 83735; 83880; 84145; 84443; 85025; 85378; 85610; 86803; 87086; 87088; 87186; 87389; 87636; 93005; 97162; 97166; 97530; 99285; G0378; J0696; J1956; J3475; Q9967

== ENCOUNTER 2024-05-06 17:59 | Inpatient (IN) | payer MEDICARE, OTHER, SELFPAY ==
[2024-05-06] VITALS (11 sets, daily range): BP systolic 139–217; BP diastolic 57–99; PULSE 101–117; RESP 16–25; TEMP 36.7–36.8; O2SAT 88–99; BMI 23.8; BMI 23.9
--- NOTE | 2024-05-06 | ECG_ITS ---
APPROVED REPORT Exam: Resting ECG HR:96 bpm ECG Measurements Heart Rate 96 AXES ID 208 P 83 QRSd 87 QRS -76 QT 369 T 49 QTc 423 Conclusion SINUS RHYTHM PATTERN CONSISTENT WITH PULMONARY DISEASE POSSIBLE RIGHT VENTRICULAR CONDUCTION DELAY [RSR (QR) IN V1/V2] LEFT ANTERIOR FASCICULAR BLOCK [QRS AXIS <= -45, QR IN I, RS IN II] ABNORMAL ECG No STEMI Electronically signed by : GUILLERMINA VALENCIA, 05/09/2024 06:34:54
--- NOTE | 2024-05-06 18:05 | PC.NURSE ---
Dr. Cee & Phillip Swanson APRN at bedside. Family brought back
--- NOTE | 2024-05-06 18:11 | XR_ITS ---
PROCEDURE INFORMATION: Exam: XR Chest Exam date and time: 05/06/2024 6:20 PM Age: 74 years old Clinical indication: Cough; Additional info: Cough wheeze TECHNIQUE: Imaging protocol: Radiologic exam of the chest. Views: 2 views. COMPARISON: CT ANGIO CHEST PE PROTOCOL 04/24/2024 11:03 PM FINDINGS: Lungs: There is mild coarsening of the bronchovascular markings with hyperinflation suggesting underlying obstructive airways disease. Pleural spaces: No large effusion or pneumothorax. Heart/Mediastinum: Stable cardiac and mediastinal contours. Bones/joints: No evidence of acute osseous abnormalities within the visualized portions of the thoracic spine and ribs. Osseous structures appear appropriate for patient age. IMPRESSION: No dense parenchymal consolidation, pleural effusion, or pneumothorax.
--- NOTE | 2024-05-06 18:13 | ED_ITS ---
Discharge Plan Disposition Patient Disposition: Home, Self-Care Clinical Impressions Clinical Impression: Atypical pneumonia Discharge ED Provider: Timothy Cee General Adult HPI <Marlon Swanson ([facility]), LATEX RIB[employer] MACHINE OPERATOR - Last Filed: 05/06/24 20:31> General Chief complaint: Upper Respiratory Infection Stated complaint: Cough Time Seen by Provider: 05/06/24 18:00 Mode of Arrival: EMS Source of Information: Patient and EMS Limitations: No Limitations Description of Symptoms (Recalled from ER Triage Doc. by RN): cough,congestion. History of Present Illness HPI narrative: 74-year-old female presents via EMS for complaints of coughing, nasal congestion. Patient states she was just discharged from the hospital for a UTI. Related Data Home Medications ?Medication ?Instructions ?Recorded ?Confirmed montelukast 10 mg tablet 10 mg PO PM 11/16/18 04/25/24 simvastatin 20 mg tablet 20 mg PO PM 11/16/18 04/25/24 hydroxyzine pamoate 25 mg capsule 25 mg PO DAILYP PRN Anxiety 02/27/22 04/25/24 losartan 100 mg tablet 100 mg PO DAILY 02/17/23 04/25/24 fluoxetine 40 mg capsule 40 mg PO AM 04/25/24 04/25/24 insulin glargine 100 unit/mL (3 30 unit SQ HS 04/25/24 04/25/24 mL) subcutaneous pen (Basaglar KwikPen U-100 Insulin) lamotrigine 200 mg tablet 200 mg PO AM 04/25/24 04/25/24 levothyroxine 150 mcg tablet 150 mcg PO AM 04/25/24 04/25/24 meclizine 25 mg tablet 25 mg PO TIDP PRN Vertigo 04/25/24 04/25/24 ondansetron 4 mg disintegrating 4 mg PO Q6HP PRN Nausea And 04/25/24 04/25/24 tablet Vomiting Previous Rx's ?Medication ?Instructions ?Recorded levofloxacin 750 mg tablet 750 mg PO DAILY 2 days #2 tabs 04/26/24 metoprolol tartrate 25 mg tablet 25 mg PO BID 30 days #60 tabs 04/26/24 doxycycline hyclate 100 mg capsule 100 mg PO BID pneumonia 7 days #14 05/06/24 caps prednisone 50 mg tablet 50 mg PO DAILY 4 days #4 tabs 05/06/24 Allergies Allergy/AdvReac Type Severity Reaction Status Date / Time No Known Allergies Allergy Verified 02/17/23 09:40 PFS <[facility] LAT[employer] MACHINE OPERATOR - Last Filed: 05/06/24 20:31> [facility] Disclaimer: The information contained in this section may have been updated after the patient was seen, as this information can be updated by other users. Medical History , LATEX R[employer] MACHINE OPERATOR) Anxiety Bipolar 1 disorder History of seizures Hypertension Mixed hyperlipidemia History of mastoiditis Vertigo Diabetes Postsurgical fever Hypothyroidism Surgical History , LATEX R[employer] MACHINE OPERATOR) History of tubal ligation History of colonoscopy History of cholecystectomy Family History , LATEX RIB[employer] MACHINE OPERATOR) COPD (chronic obstructive pulmonary disease) Cancer Hypertension Thyroid disorder Social History , LAT[employer] R[employer] MACHINE OPERATOR) Smoking Status: Never smoker second hand exposure: Yes alcohol intake: never substance use type: marijuana current occupational status: retired household members: none housing: house 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 current occupational exposures/hazards: No caffeine: Yes Other Medical History Have you received the Flu Vaccine for this season: No Have you received the Pneumonia Vaccine: No <[facility] LATEX RIB[employer] MACHINE OPERATOR - Last Filed: 05/06/24 20:31> ROS Obtained: Yes Systems reviewed as appropriate & no additional complaints except as documented ENT Ears, Nose, Mouth, and Throat: Reports system reviewed and no additional complaints, except as documented, Reports as per HPI, Reports nasal congestion, Reports nasal discharge and Reports post nasal drip Respiratory Respiratory: Reports system reviewed and no additional complaints, except as documented, Reports as per HPI, Reports cough and Reports non-productive cough Physical Exam <[facility] LATEX R[employer] MACHINE OPERATOR - Last Filed: 05/06/24 20:31> General General appearance: alert and in no apparent distress Eye Eye exam: Present normal appearance ENT ENT exam: Present normal exam Respiratory Respiratory exam: Present wheezes Cardiovascular Cardiovascular exam: Present regular rate and normal rhythm Abdominal Exam Abdominal exam: Present soft and normal bowel sounds Neurological Exam Neurological exam: Present alert and oriented X3 Skin Skin exam: Present warm and intact Medical Decision Making <Sabrinainashon Patelcorinne ([facility]), LATEX RIB[employer] MACHINE OPERATOR - Last Filed: 05/06/24 20:31> Medical Records Medical records reviewed: Yes I reviewed the patient's medical records. Screening: Per USPSTF and CDC recommendations, given the prevalence of disease in our region, it is our hospital?s policy to screen for HIV and viral Hepatitis for all patients aged 18 and over and those with ongoing risk factors. Binu Inquiry Pt receiving controlled substance: No Binu was queried for this patient: No Vital Signs: 05/06/24 17:59 05/06/24 19:00 05/06/24 19:30 Temperature 98.2 F Temperature Source Oral Pulse Rate 110 H 110 H Pulse Rate [Right] 101 H Respiratory Rate 22 20 23 Blood Pressure 178/71 H 158/60 H Blood Pressure [Right Arm] 217/99 H Blood Pressure Mean 124 115 Blood Pressure Mean [Right Arm] 138 02 Sat by Pulse Oximetry 95 99 98 Oxygen Delivery Method Room Air Room Air Room Air 05/06/24 20:00 05/06/24 20:30 05/06/24 21:00 Temperature Temperature Source Pulse Rate 111 H 106 H 109 H Pulse Rate [Right] Respiratory Rate 16 20 22 Blood Pressure 139/62 154/64 H 152/57 H Blood Pressure [Right Arm] Blood Pressure Mean 87 Blood Pressure Mean [Right Arm] 02 Sat by Pulse Oximetry 97 97 97 Oxygen Delivery Method Room Air 05/06/24 21:19 05/06/24 21:30 Temperature Temperature Source Pulse Rate 103 H 116 H Pulse Rate [Right] Respiratory Rate 20 Blood Pressure 159/65 H Blood Pressure [Right Arm] Blood Pressure Mean Blood Pressure Mean [Right Arm] 02 Sat by Pulse Oximetry 89 L Oxygen Delivery Method Lab Data Lab Results 05/06/24 18:12: VBG pH 7.46 H, VBG pCO2 38.5, VBG pO2 112.5 H, VBG HCO3 27.0, V BG Total CO2 28.1 H, VBG O2 Saturation 98.3 H, VBG Base Excess 3.2 H, VBG Lactic Acid 1.9 05/06/24 18:25: WBC 9.0, RBC 4.42, Hgb 13.4, Hct 38.7, MCV 87.5, MCH 30.3, MCHC 34.7, RDW 14.0, Plt Count 122 L, MPV 7.6, Neut % (Auto) 72.5, Lymph % (Auto) 18.1, Walsh % (Auto) 6.3, Eos % (Auto) 2.1, Baso % (Auto) 1.0, Neut # (Auto) 6.5, Lymph # (Auto) 1.6, Walsh # (Auto) 0.6, Eos # (Auto) 0.2, Baso # (Auto) 0.1, Sodium 137, Potassium 3.3 L, Chloride 102, Carbon Dioxide 29, Anion Gap 9.3, BUN 5 L, Creatinine 0.60, Estimated Creat Clear 52, Estimated GFR 97, Est GFR ( Amer) 118, Glucose 175 H, Calcium 8.9, Total Bilirubin 1.2, AST 36, ALT 18, Alkaline Phosphatase 79, Troponin I < 0.01, NT-Pro-B Natriuret Pep 770 H, Total Protein 7.3, Albumin 4.0, Globulin 3.3 H, Albumin/Globulin Ratio 1.2 05/06/24 18:40: SARS-CoV-2 (PCR) Not detected, Influenza A Untype (PCR) Not detected, Influenza Type B (PCR) Not detected 05/06/24 18:25 05/06/24 18:25 Orders (Tests/Meds): ED MEDICATIONS Discontinued Medications Generic Name Dose Route Start Last Admin Trade Name Freq PRN Reason Stop Dose Admin Acetaminophen 1,000 mg 05/06/24 18:51 05/06/24 19:06 Acetaminophen 500mg Tab PO 05/06/24 18:52 1,000 mg ONCE ONE Administration Albuterol Sulfate 20 mg 05/06/24 19:48 05/06/24 21:18 Albuterol 0.083% 2.5 Mg/3 Ml Neb 05/06/24 19:49 20 mg ONCE ONE Administration Albuterol/Ipratropium 9 ml 05/06/24 18:11 05/06/24 18:49 Ipratropium/Albuterol 3 Ml Neb 05/06/24 18:12 9 ml ONCE ONE Administration Magnesium Sulfate 2 gm in 50 mls @ 50 mls/hr 05/06/24 18:11 05/06/24 18:49 Magnesium Sulfate 2gm/50ml Premix IV 05/06/24 19:10 50 mls/hr ONCE ONE Administration Azithromycin 500 mg/ Sodium 250 mls @ 250 mls/hr 05/06/24 18:15 05/06/24 19:45 Chloride IV 05/06/24 18:16 250 mls/hr ONCE ONE Administration Potassium Chloride/Water 100 mls @ 50 mls/hr 05/06/24 19:48 05/06/24 20:03 Potassium Chloride 20meq/100ml Ivpb IV 05/06/24 21:47 50 mls/hr ONCE ONE Administration Irbesartan 150 mg 05/06/24 18:12 05/06/24 19:04 Irbesartan 150mg Tab PO 05/06/24 18:13 150 mg ONCE ONE Administration Methylprednisolone Sodium Succinate 125 mg 05/06/24 18:11 05/06/24 18:49 Methylprednisolone Sod Succ 125mg Vial IV 05/06/24 18:12 125 mg ONCE ONE Administration Ondansetron HCl 4 mg 05/06/24 19:39 05/06/24 19:45 Ondansetron 4mg/2ml Vial IV 05/06/24 19:40 4 mg ONCE ONE Administration Potassium Chloride 40 meq 05/06/24 18:53 05/06/24 19:51 Potassium Chloride 20meq/15ml Udc PO 05/06/24 18:54 Not Given ONCE ONE Potassium Chloride 40 meq 05/06/24 19:08 05/06/24 19:51 Potassium Chloride 20meq Tab PO 05/06/24 19:09 Not Given ONCE ONE Sodium Chloride 100 ml 05/06/24 20:02 05/06/24 20:04 Sodium Chloride 0.9% 100ml Bag IV 05/06/24 20:03 100 ml ONCE ONE Administration ORDERS Category Date Time Status CXR 2 view (NOT portable) [XR chest 2V] Stat Exams 05/06/24 18:11 Completed BNP [NT Pro Brain Natriuretic Pep.] Stat Lab 05/06/24 18:25 Completed CBC w/Auto Diff [Complete Blood Count Auto Diff] Stat Lab 05/06/24 18:25 Completed CMP [Comprehensive Metabolic Panel] Stat Lab 05/06/24 18:25 Completed Full Resp Panel w/COVID ([facility]) Routine Lab 05/06/24 18:40 Received HIV (1&2) Antibody Rapid Stat Lab 05/06/24 18:53 Ordered Hep C Ab with Reflex to RNA Stat Lab 05/06/24 18:53 Ordered Rapid PCR Covid and Flu A/B Stat Lab 05/06/24 18:40 Completed Trop I [Troponin I] Stat Lab 05/06/24 18:25 Completed VBG [Venous Blood Gas] Stat RT 05/06/24 18:12 Completed EKG Request [ECG Request] Stat Y 05/06/24 18:11 Ordered ECG Data Tracing #1: I reviewed this ECG and interpreted as documented below: Medical Decision Narrative: In summary patient is a 74-year-old female who presents to the emergency department for evaluation of nasal congestion and a cough. Patient is hemodynamically stable upon arrival, afebrile. Blood pressure elevated (patient states she forgot to take her blood pressure pills today) wheezing noted.. Differential diagnosis includes viral infection, pneumonia. Initial workup will be conducted with labs show low potassium supplement given. Initial inventions include potassium p.o which patient vomited back up immediately. Was given IV. Zofran for nausea, IV Zithromax and breathing treatments. Initial workup reviewed by me potassium 3.3. Upon repeat evaluation 750 reassessed patient still wheezing in the lower bases-continuous albuterol neb given,unable to tolerate p.o. potassium, IV supplement given.Blood pressure improved-139/62. Given this [patient was appropriate for discharge at this time and will be discharged with a prescription for? This case was discussed with hospital medicine regarding management? They will meet the patient to their service for continued evaluation at this time? Etc.] production broacher shows normal sinus rhythm with a rate 97 <Timothy Cee MD - Last Filed: 05/06/24 22:02> Vital Signs: 05/06/24 17:59 05/06/24 19:00 05/06/24 19:30 Temperature 98.2 F Temperature Source Oral Pulse Rate 110 H 110 H Pulse Rate [Right] 101 H Respiratory Rate 22 20 23 Blood Pressure 178/71 H 158/60 H Blood Pressure [Right Arm] 217/99 H Blood Pressure Mean 124 115 Blood Pressure Mean [Right Arm] 138 02 Sat by Pulse Oximetry 95 99 98 Oxygen Delivery Method Room Air Room Air Room Air 05/06/24 20:00 05/06/24 20:30 05/06/24 21:00 Temperature Temperature Source Pulse Rate 111 H 106 H 109 H Pulse Rate [Right] Respiratory Rate 16 20 22 Blood Pressure 139/62 154/64 H 152/57 H Blood Pressure [Right Arm] Blood Pressure Mean 87 Blood Pressure Mean [Right Arm] 02 Sat by Pulse Oximetry 97 97 97 Oxygen Delivery Method Room Air 05/06/24 21:19 05/06/24 21:30 Temperature Temperature Source Pulse Rate 103 H 116 H Pulse Rate [Right] Respiratory Rate 20 Blood Pressure 159/65 H Blood Pressure [Right Arm] Blood Pressure Mean Blood Pressure Mean [Right Arm] 02 Sat by Pulse Oximetry 89 L Oxygen Delivery Method Lab Data Lab Results 05/06/24 18:12: VBG pH 7.46 H, VBG pCO2 38.5, VBG pO2 112.5 H, VBG HCO3 27.0, V BG Total CO2 28.1 H, VBG O2 Saturation 98.3 H, VBG Base Excess 3.2 H, VBG Lactic Acid 1.9 05/06/24 18:25: WBC 9.0, RBC 4.42, Hgb 13.4, Hct 38.7, MCV 87.5, MCH 30.3, MCHC 34.7, RDW 14.0, Plt Count 122 L, MPV 7.6, Neut % (Auto) 72.5, Lymph % (Auto) 18.1, Walsh % (Auto) 6.3, Eos % (Auto) 2.1, Baso % (Auto) 1.0, Neut # (Auto) 6.5, Lymph # (Auto) 1.6, Walsh # (Auto) 0.6, Eos # (Auto) 0.2, Baso # (Auto) 0.1, Sodium 137, Potassium 3.3 L, Chloride 102, Carbon Dioxide 29, Anion Gap 9.3, BUN 5 L, Creatinine 0.60, Estimated Creat Clear 52, Estimated GFR 97, Est GFR ( Amer) 118, Glucose 175 H, Calcium 8.9, Total Bilirubin 1.2, AST 36, ALT 18, Alkaline Phosphatase 79, Troponin I < 0.01, NT-Pro-B Natriuret Pep 770 H, Total Protein 7.3, Albumin 4.0, Globulin 3.3 H, Albumin/Globulin Ratio 1.2 05/06/24 18:40: SARS-CoV-2 (PCR) Not detected, Influenza A Untype (PCR) Not detected, Influenza Type B (PCR) Not detected Orders (Tests/Meds): ED MEDICATIONS Discontinued Medications Generic Name Dose Route Start Last Admin Trade Name Trung PRN Reason Stop Dose Admin Acetaminophen 1,000 mg 05/06/24 18:51 05/06/24 19:06 Acetaminophen 500mg Tab PO 05/06/24 18:52 1,000 mg ONCE ONE Administration Albuterol Sulfate 20 mg 05/06/24 19:48 05/06/24 21:18 Albuterol 0.083% 2.5 Mg/3 Ml [facility] 05/06/24 19:49 20 mg ONCE ONE Administration Albuterol/Ipratropium 9 ml 05/06/24 18:11 05/06/24 18:49 Ipratropium/Albuterol 3 Ml [facility] 05/06/24 18:12 9 ml ONCE ONE Administration Magnesium Sulfate 2 gm in 50 mls @ 50 mls/hr 05/06/24 18:11 05/06/24 18:49 Magnesium Sulfate 2gm/50ml Premix IV 05/06/24 19:10 50 mls/hr ONCE ONE Administration Azithromycin 500 mg/ Sodium 250 mls @ 250 mls/hr 05/06/24 18:15 05/06/24 19:45 Chloride IV 05/06/24 18:16 250 mls/hr ONCE ONE Administration Potassium Chloride/Water 100 mls @ 50 mls/hr 05/06/24 19:48 05/06/24 20:03 Potassium Chloride 20meq/100ml Ivpb IV 05/06/24 21:47 50 mls/hr ONCE ONE Administration Irbesartan 150 mg 05/06/24 18:12 05/06/24 19:04 Irbesartan 150mg Tab PO 05/06/24 18:13 150 mg ONCE ONE Administration Methylprednisolone Sodium Succinate 125 mg 05/06/24 18:11 05/06/24 18:49 Methylprednisolone Sod Succ 125mg Vial IV 05/06/24 18:12 125 mg ONCE ONE Administration Ondansetron HCl 4 mg 05/06/24 19:39 05/06/24 19:45 Ondansetron 4mg/2ml Vial IV 05/06/24 19:40 4 mg ONCE ONE Administration Potassium Chloride 40 meq 05/06/24 18:53 05/06/24 19:51 Potassium Chloride 20meq/15ml Udc PO 05/06/24 18:54 Not Given ONCE ONE Potassium Chloride 40 meq 05/06/24 19:08 05/06/24 19:51 Potassium Chloride 20meq Tab PO 05/06/24 19:09 Not Given ONCE ONE Sodium Chloride 100 ml 05/06/24 20:02 05/06/24 20:04 Sodium Chloride 0.9% 100ml Bag IV 05/06/24 20:03 100 ml ONCE ONE Administration ORDERS Category Date Time Status CXR 2 view (NOT portable) [XR chest 2V] Stat Exams 05/06/24 18:11 Completed BNP [NT Pro Brain Natriuretic Pep.] Stat Lab 05/06/24 18:25 Completed CBC w/Auto Diff [Complete Blood Count Auto Diff] Stat Lab 05/06/24 18:25 Completed CMP [Comprehensive Metabolic Panel] Stat Lab 05/06/24 18:25 Completed Full Resp Panel w/COVID ([facility]) Routine Lab 05/06/24 18:40 Received HIV (1&2) Antibody Rapid Stat Lab 05/06/24 18:53 Ordered Hep C Ab with Reflex to RNA Stat Lab 05/06/24 18:53 Ordered Rapid PCR Covid and Flu A/B Stat Lab 05/06/24 18:40 Completed Trop I [Troponin I] Stat Lab 05/06/24 18:25 Completed VBG [Venous Blood Gas] Stat RT 05/06/24 18:12 Completed EKG Request [ECG Request] Stat Y 05/06/24 18:11 Ordered ECG Data Tracing #1: Independently turned by me rate is 96, rhythm is regular, axis is rightward deviated, no ST elevation in anatomical contiguous leads, QTc 423. Medical Decision Narrative: In summary patient is a 74-year-old female who presents to the emergency department for evaluation of nasal congestion and a cough. Patient is hemodynamically stable upon arrival, afebrile. Blood pressure elevated (patient states she forgot to take her blood pressure pills today) wheezing noted.. Differential diagnosis includes viral infection, pneumonia. Initial workup will be conducted with labs show low potassium supplement given. Initial inventions include potassium p.o which patient vomited back up immediately. Was given IV. Zofran for nausea, IV Zithromax and breathing treatments. Initial workup reviewed by me potassium 3.3. Upon repeat evaluation 750 reassessed patient still wheezing in the lower bases-continuous albuterol neb given,unable to tolerate p.o. potassium, IV supplement given.Blood pressure improved-139/62. production broacher shows normal sinus rhythm with a rate 97 I was consulted by the NIMESH, and we discussed the complexity of the problems being addressed. I approved the treatment and management plan for this patient's care in the emergency department, thus performing a substantive portion of the medical decision making. Patient showed up with biphasic wheezing and shortness of breath, ultimately got 3 DuoNebs, IV magnesium sulfate, methylprednisolone, azithromycin. X-ray informally interpreted by me shows interstitial pneumonia, no dense lobar opacities. Upon repeat evaluation patient had persistent wheezing although improved air movement for which we will start continuous albuterol for an hour, her VBG is remarkably compensated and her hematologic labs are largely nonactionable with the exception of potassium which will be repleted orally. Ambulatory oxygen saturation after continuous albuterol for an hour 85%. Given age patient will benefit from admission for continued evaluation at this time. The case was discussed with hospital medicine regarding management of admit the patient to her service for continued evaluation at this time. Full viral swab obtained prior to admission. Timothy Cee MD Critical Care <Marlon Swanson ([facility]), LATEX R[employer]ON MACHINE OPERATOR - Last Filed: 05/06/24 20:31> Critical Care Time Critical Care Time: No
[2024-05-06 18:37] LABS: Basophils # 0.1 K/mm3 (0-0.2); Eosinophils # 0.2 K/mm3 (0.0-0.4); Eosinophils % 2.1 % (0.1-12.0); Hematocrit 38.7 % (37.0-47.0); Hemoglobin 13.4 g/dL (12.2-16.2); Lymphocytes # 1.6 K/mm3 (0.7-4.5); Lymphocytes % 18.1 % (10-50); Mean Corpuscular HGB Conc 34.7 g/dL (31.8-35.4); Mean Corpuscular Hemoglobin 30.3 pg (27.0-31.2); Mean Corpuscular Volume 87.5 fl (81-99); Mean Platelet Volume 7.6 fl (7.4-10.4); Monocytes # 0.6 K/mm3 (0.1-1.0); Monocytes % 6.3 % (1.7-9.3); Neutrophils # 6.5 K/mm3 (1.8-7.8); Neutrophils % 72.5 % (37.0-80.0); Platelet Count 122 K/mm3 (142-424); Red Blood Count 4.42 M/mm3 (4.20-5.40)
[2024-05-06 18:40] LABS: Chloride 102 mmol/L (98-107); Potassium 3.3 mmoL/L (3.5-5.1); Sodium 137 mmol/L (136-145)
[2024-05-06 18:42] LABS: Lactate Venous 1.9 mmol/L (0.4-2.0); VBG Base Excess 3.2 mmol/L (-2.4-2.3); VBG Oxygen Saturation 98.3 % (50-70); VBG PCO2 38.5 mmol/L (35-51); VBG PH 7.46 mmol/L (7.31-7.41); VBG PO2 112.5 mmol/L (28-40); VBG Total CO2 28.1 mmol/L (23-27)
[2024-05-06 18:43] LABS: Alanine Aminotransferase 18 U/L (12-78); Albumin/Globulin Ratio 1.2 (1.1-1.8); Alkaline Phosphatase 79 U/L (38-126); Anion Gap 9.3 mEq/L (5-15); Aspartate Amino Transferase 36 U/L (14-36); Bilirubin,Total 1.2 mg/dl (0.2-1.3); Blood Urea Nitrogen 5 mg/dl (7-17); Calcium 8.9 mg/dl (8.4-10.2); Carbon Dioxide 29 mmol/L (22.0-30.0); Creatinine Clearance Estimated 52 mL/min (50-200); Estimated Glomerular Filt Rate 97 ml/min (>60); GFR (African American) 118 ML/MIN (>60); Globulin 3.3 g/dL (1.3-3.2); Glucose 175 mg/dl (74-100); Total Protein,Serum 7.3 g/dl (6.3-8.2)
[2024-05-06 18:49] LABS: Coronavirus 19, PCR Not Detected (NotDetected); Influenza A, PCR Not Detected (NotDetected); Influenza B, PCR Not Detected (NotDetected)
[2024-05-06] MEDS: MAGNESIUM SULFATE IN WATER 2 GM/50 ML PIGGYBACK IV (18:49)
[2024-05-06] MEDS: METHYLPREDNISOLONE SOD SUCC 125MG VIAL 125 MG IV (18:49)
[2024-05-06] MEDS: IPRATROPIUM/ALBUTEROL 3 ML NEB 9 ML IH (18:49)
[2024-05-06 18:53] LABS: NT Pro Brain Natriuretic Pep. 770 pg/mL (0-450)
[2024-05-06 18:56] LABS: Troponin I < 0.01 ng/ml (0.00-0.034)
[2024-05-06] MEDS: IRBESARTAN 150MG TAB 150 MG PO (19:04)
[2024-05-06] MEDS: ACETAMINOPHEN 500MG TAB 1000 MG PO (19:06)
--- NOTE | 2024-05-06 19:38 | PC.NURSE ---
Pt to ultrasound via wheelchair
[2024-05-06] MEDS: AZITHROMYCIN 500 MG in 0.9 % SODIUM CHLORIDE 250 ML 250 MG IV (19:45)
[2024-05-06] MEDS: ONDANSETRON 4MG/2ML VIAL 4 MG IV (19:45)
[2024-05-06] MEDS: KCl 20mEq/100ml 100 ML 50 MEQ IV (20:03)
[2024-05-06] MEDS: SODIUM CHLORIDE 0.9% 100ML BAG 100 ML IV (20:04)
[2024-05-06] MEDS: ALBUTEROL 0.083% 2.5 MG/3 ML NEB 20 MG IH (21:18)
--- NOTE | 2024-05-06 21:42 | PC.NURSE ---
Tova HERNDON ambulating patient at this time to check an ambulatory O2 sat.
[2024-05-06 21:53] LABS: Adenovirus,PCR Not Detected (NotDetected); Bordetella Pertussis Not Detected (NotDetected); Chlamydophila Pneumoniae, PCR Not Detected (NotDetected); Coronavirus 19, PCR Not Detected (NotDetected); Coronavirus 229E Not Detected (NotDetected); Coronavirus NL63 Not Detected (NotDetected); Coronavirus OC43 Not Detected (NotDetected); Coronovirus HKU1,PCR Not Detected (NotDetected); Human Metapneumovirus Not Detected (NotDetected); Influenza A, PCR Not Detected (NotDetected); Influenza AH1, 2009 Not Detected (NotDetected); Influenza AH1, PCR Not Detected (NotDetected); Influenza AH3,PCR Not Detected (NotDetected); Influenza B, PCR Not Detected (NotDetected); Mycoplasma Pneumoniae, PCR Not Detected (NotDetected); Parainfluenza 1, PCR Not Detected (NotDetected); Parainfluenza 2, PCR Not Detected (NotDetected); Parainfluenza 3, PCR Not Detected (NotDetected); Parainfluenza 4, PCR Not Detected (NotDetected); Rhinovirus/Enterovirus Not Detected (NotDetected)
--- NOTE | 2024-05-06 22:02 | PC.NURSE ---
Report called to Amira HERNDON
[2024-05-06 23:09] LABS: Respiratory Syncytial Virus Detected (NotDetected)
[2024-05-06] MEDS: CEFTRIAXONE 1 GM 1 GM in 0.9 % SODIUM CHLORIDE 50 ML IV (23:52)
[2024-05-07] VITALS (10 sets, daily range): BP systolic 139–151; BP diastolic 61–80; PULSE 77–98; RESP 16–20; TEMP 36.7–37.2; O2SAT 90–97; BMI 24.3
--- NOTE | 2024-05-07 00:38 | EXP.HP ---
History of Present Illness *Admission Date: 05/06/24 *Reason for visit:: Respiratory failure needing oxygen *History of present illness: This patient which I know well from her last admission.. Today got to where she could not breathing came to the emergency room finding out O2 saturations were as low as 84% on room air while walking. Patient placed up on oxygen breathing treatments that last and had a considerable period of time also given Solu-Medrol by the ER physician.. Patient has improved but on room air while talking lying in bed relaxing saturations will still drop to 87%. Patient noted that she has been around multiple people since her discharge from the hospital approximately 2 weeks ago, she noted no one has been particularly ill. Talk to her about exposure if she to had her flu and COVID shots which she has she thinks she has had a pneumonia shot a long time ago but is never had an RSV vaccine.. Patient is relaxed able to talk freely with oxygen on in the emergency room setting. But I do agree with the ER physician that she will need to be admitted due to the oxygen need. And to continue to evaluate for pulmonary toileting. I had already decided she need to be admitted when labs returned showing that she was positive for RSV. And I do agree after conferring with the ER provider that we must put her in and so she is being placed upon the second floor. [facility] Disclaimer: The information contained in this section may have been updated after the patient was seen, as this information can be updated by other users. Medical History (Updated 05/07/24 @ 13:07 by Alfonso Mercado MD) Anxiety Bipolar 1 disorder Hypertension History of mastoiditis Vertigo Diabetes Postsurgical fever Hypothyroidism Surgical History History of tubal ligation History of colonoscopy History of cholecystectomy Family History (Reviewed 05/06/24 @ 20:23 by Marlon Swanson ([facility] MATERIALS ASSISTANT) COPD (chronic obstructive pulmonary disease) Cancer Hypertension Thyroid disorder Social History (Updated 05/06/24 @ 23:07 by Vijaya Downs RN) Smoking Status: Former smoker second hand exposure: Yes alcohol intake: never substance use type: marijuana current occupational status: retired Travel in the last 8 weeks: None household members: none housing: house 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 current occupational exposures/hazards: No caffeine: Yes Other Medical History Have you received the Flu Vaccine for this season: Yes Have you received the Pneumonia Vaccine: Yes Review of Systems Review of Systems Review of systems:: pertinent systems reviewed and negative unless documented below Constitutional Constitutional: Reports as per HPI, Reports lethargy, Reports malaise and Reports weight loss Eyes Eyes: Reports as per HPI ENT Ears, Nose, Mouth, and Throat: Reports as per HPI Comments: Patient denies postnasal drip but notes she does have a cough *Cardiovascular Cardiovascular: Reports as per HPI, Reports dyspnea and Reports dyspnea on exertion *Respiratory Respiratory: Reports as per HPI, Reports change in phlegm color, Reports cough, Reports dyspnea, Reports dyspnea on exertion and Reports wheezing *Gastrointestinal Gastrointestinal: Reports as per HPI *Genitourinary Genitourinary: Reports as per HPI *Musculoskeletal Musculoskeletal: Reports as per HPI Integumentary/Breasts Skin/Breast: Reports as per HPI *Neurologic Neurologic: Reports as per HPI Comments: Noting that I had taken care of the patient on her last admission she is much more bright and alert today than she was just 2 weeks ago Psychiatric Psychiatric: Reports as per HPI Comments: Patient notes she has a history of bipolar Endocrine Endocrine: Reports as per HPI Hematologic/Lymphatic Hematologic/Lymphatic: Reports as per HPI Allergic/Immunologic Allergic/Immunologic: Reports as per HPI and Reports wheezing Meds Home Medications and Allergies Home Medications ?Medication ?Instructions ?Recorded ?Confirmed ?Type montelukast 10 mg tablet 10 mg PO PM 11/16/18 05/06/24 History simvastatin 20 mg tablet 20 mg PO PM 11/16/18 05/06/24 History hydroxyzine pamoate 25 mg capsule 25 mg PO DAILYP PRN Anxiety 02/27/22 05/06/24 History losartan 100 mg tablet 100 mg PO DAILY 02/17/23 05/06/24 History fluoxetine 40 mg capsule 40 mg PO AM 04/25/24 05/06/24 History lamotrigine 200 mg tablet 200 mg PO AM 04/25/24 05/06/24 History levothyroxine 150 mcg tablet 150 mcg PO AM 04/25/24 05/06/24 History meclizine 25 mg tablet 25 mg PO TIDP PRN Vertigo 04/25/24 05/06/24 History ondansetron 4 mg disintegrating 4 mg PO Q6HP PRN Nausea And 04/25/24 05/06/24 History tablet Vomiting metoprolol tartrate 25 mg tablet 25 mg PO BID 30 days #60 tabs 04/26/24 05/06/24 Rx insulin degludec 200 unit/mL (3 30 unit SQ HS 05/07/24 05/07/24 History mL) subcutaneous pen (Tresiba FlexTouch U-200 insulin) New Prescriptions to Start Prescriptions: Allergies Allergy/AdvReac Type Severity Reaction Status Date / Time No Known Allergies Allergy Verified 02/17/23 09:40 Exam Data for Last 24 hours Vital signs and Labs for Last 24 Hours: Temp Pulse Resp BP Pulse Ox O2 Del Method O2 Flow Rate 98.0 F 113 H 25 H 157/67 H 91 L Nasal Cannula 2 05/06/24 22:43 05/06/24 22:43 05/06/24 22:43 05/06/24 22:43 05/06/24 22:43 05/06/24 22:43 05/06/24 22:43 Laboratory Results - last 24 hr 05/06/24 18:12: VBG pH 7.46 H, VBG pCO2 38.5, VBG pO2 112.5 H, VBG HCO3 27.0, VBG Total CO2 28.1 H, VBG O2 Saturation 98.3 H, VBG Base Excess 3.2 H, VBG Lactic Acid 1.9 05/06/24 18:25: WBC 9.0, RBC 4.42, Hgb 13.4, Hct 38.7, MCV 87.5, MCH 30.3, MCHC 34.7, RDW 14.0, Plt Count 122 L, MPV 7.6, Neut % (Auto) 72.5, Lymph % (Auto) 18.1, [place] % (Auto) 6.3, Eos % (Auto) 2.1, Baso % (Auto) 1.0, Neut # (Auto) 6.5, Lymph # (Auto) 1.6, [place] # (Auto) 0.6, Eos # (Auto) 0.2, Baso # (Auto) 0.1, Sodium 137, Potassium 3.3 L, Chloride 102, Carbon Dioxide 29, Anion Gap 9.3, BUN 5 L, Creatinine 0.60, Estimated Creat Clear 52, Estimated GFR 97, Est GFR ( Amer) 118, Glucose 175 H, Calcium 8.9, Total Bilirubin 1.2, AST 36, ALT 18, Alkaline Phosphatase 79, Troponin I < 0.01, NT-Pro-B Natriuret Pep 770 H, Total Protein 7.3, Albumin 4.0, Globulin 3.3 H, Albumin/Globulin Ratio 1.2 05/06/24 18:40: Chlamy pneumoniae PCR Not detected, Adenovirus (PCR) Not detected, B. pertussis DNA (PCR) Not detected, Coronavirus OC43 (PCR) Not detected, Coronavirus HKU1 (PCR) Not detected, Coronavirus 229E (PCR) Not detected, SARS-CoV-2 (PCR) Not detected 05/06/24 18:40: SARS-CoV-2 (PCR) Not detected, Coronavirus NL63 (PCR) Not detected, Human Metapneumovir PCR Not detected, Influenza A (H1) PCR Not detected, Influ A (H1N1/09) PCR Not detected, Influenza A (H3) PCR Not detected, Influenza Type A (PCR) Not detected, Influenza A Untype (PCR) Not detected, Influenza Type B (PCR) Not detected 05/06/24 18:40: Influenza Type B (PCR) Not detected, M. pneumoniae (PCR) Not detected, Parainfluenza 1 (PCR) Not detected, Parainfluenza 2 (PCR) Not detected, Parainfluenza 3 (PCR) Not detected, Parainfluenza 4 (PCR) Not detected, RSV (PCR) Detected A, Entero/Rhino (PCR) Not detected I & O for Last 24 hours: Intake & Output 05/04/24 05/05/24 05/06/24 05/07/24 05:59 05:59 05:59 05:59 Weight 152 lb 11.2 oz Radiology Reports for the Last 24 Hours: Atypical pattern of possible pneumonia/bronchitis on chest x-ray Constitutional Constitutional: moderate distress, thin and chronically ill appearing Comments: Patient is not in distress being on oxygen after receiving multiple breathing treatment *Routine HEENT Exam Head: Present normocephalic and atraumatic Eye: Present EOMI, PERRL and normal accommodation ENT: Present mucous membranes moist *Routine Neck Exam Neck: Present supple and full ROM Comments: No lymphadenopathy found Routine Chest/Breast/Axilla Exam Comments: No chest wall tenderness noted patient is able to breathe equal expansion on both sides showing no discomfort or pain with deep respiration *Routine Respiratory Exam Respiratory: Present decreased breath sounds, wheezes, diminished air movement, normal respiratory effort and able to speak in complete sentences Comments: Normal respiratory effort is noted after receiving several breathing treatments and being on oxygen *Routine Cardiovascular Exam Cardiovascular: Present RRR, Normal S1, Normal S2, murmur and tachycardia Comments: There is a regular rate normal S1-S2 but with kind of a holistic murmur both systolic and diastolic., This does not radiate to the carotids questioning O2 saturation since lung sounds so good whether this is a combination of cardiac and respiratory need *Routine Abdominal Exam Abdominal: Present soft and normoactive bowel sounds *Routine Rectal Exam Rectal:: deferred *Routine Genitalia Exam Genitalia:: deferred *Routine Extremities Exam Extremities: Present full ROM and normal capillary refill Comments: Patient is able to stand up and walk without assistance, only limitation is her generalized malaise with her respiratory status Routine Back/Spine/Pelvis Exam Comments: No signs of injury or discomfort with movement being able to stand walk sit up *Routine Skin Exam Skin: Present intact, dry, warm and normal turgor *Routine Neurological Exam Neurological: Present alert, oriented X3, CN II-XII intact, normal tone, vision grossly intact, hearing grossly intact and normal speech Routine Psychiatric Exam Psychiatric: Present normal affect, normal thought process, cooperative, good insight and good judgment Comments: Talked with the patient about her CODE STATUS and she decided she wanted to be a DNR stating she would never want to be intubated, she has a friend in the emergency room with her and the friends that I note that and that I have heard her tell me that is what she wants, nursing will be notified to fill out proper paperwork H&P: Result Impressions 1. Respiratory failure with oxygen supplemental needed now. Also noting positive RSV on testing. 2. Cardiovascular heart sounds murmurs both systolic and diastolic, after seeing the patient 2 weeks ago I do not remember her heart sounding like that 3. Weakness and malaise related to present condition. Imaging and Cardiology Chest x-ray: Additional comments: Chest x-ray does not look terrible question may be some atypical pneumonia but very light findings on chest x-ray Assessment and Plan *Assessment and plan (1) RSV (acute bronchiolitis due to respiratory syncytial virus): Status: Acute Category: Medical Code(s): J21.0 - Acute bronchiolitis due to respiratory syncytial virus (2) Atypical pneumonia: Status: Acute Category: Medical Code(s): J18.9 - Pneumonia, unspecified organism (3) Supplemental oxygen dependent: Status: Acute Category: Medical Code(s): Z99.81 - Dependence on supplemental oxygen (4) Weakness generalized: Status: Acute Category: Medical Code(s): R53.1 - Weakness (5) Bipolar 1 disorder: Status: Acute Category: Medical Code(s): F31.9 - Bipolar disorder, unspecified Plan 1. After speaking with the ER physician and going over everything he did to try to be able to have her improved to be able to be treated at home I do agree that she is now oxygen dependent and needs to be admitted related to this positive RSV finding. She will be placed on the second floor and monitored while we continue the breathing treatments also continue steroids will do a pulmonary consult. I do believe by my exam at this time that she should be able to recover from this over a period of a couple of weeks.. Noted that we did talk about immunizations and RSV was in immunization she did not receive 2. Cardiovascular murmur, the heart sounds that the heart is struggling at this point in time it may just be to the fact that her cardiac rate is up related to the infection it is going on and how hard she is having to work. But will also consult cardiology to evaluate for any valvular or cardiac deficit that may be compounding this problem 3. History of bipolar: Will continue the patient's regular home medications for controlling this I find that her mental status right now even though she is ill is much better than her last hospital admission she is actually very pleasant and has full understanding of what is going on. Rounded on patient after nurse practitioner. Personally examined and interviewed patient. Agree with exam findings and care plan as documented. Acute hypoxemic respiratory failure secondary to RSV. CBC, CMP, magnesium ordered for the morning. Continue antibiotics, steroids, breathing treatments every 6 hours. Necessitating inpatient management.
[2024-05-07] MEDS: humaLOG 100 UNITS/ML 10ML VIAL (SSI) SUBCUT ×6 (01:03→21:00)
--- NOTE | 2024-05-07 02:09 | P.EN_ITS ---
Hyperglycemia status post IV steroids: Patient blood sugar above 400 when checked on the floor.. This was a problem last time she was in the hospital we had to keep rising up her insulin, and then the condition improved as we change medications around. Due to her respiratory status and O2 sats being placed carious will continue to need IV steroids for the next few days. So have adj usted up to medium sliding scale at this point in time and added a as needed fingerstick as needed per the nurses instead of just before meals and at bedtime alone. 02:15,. nurse noted that her O2 saturation was dropping and respiratory called to meet with me and the patient., .Noted that one of the prongs of the nasal cannula was removed for going to place that back in patient is comfortable may not be able to continue with 93% sat but will tolerate 91% or better., If need be may add CPAP. The patient was noted as having a CPAP machine in the past at home but it was recalled and never received a new one She stated this last hospitalization and noted the patient is trying to set up a sleep study so she can qualify for another machine. order place dto set up outpatient sleep study Patient will have a pulmonary consult here see if were able to set something up for evaluation of sleep study that she may qualify for CPAP at home. This may be needed on top of supplemental oxygen depending on how her respiratory status does has with having this RSV over the next weeks.
[2024-05-07 04:18] LABS: POC Glucose,Bedside 367 (70-110)
[2024-05-07 06:07] LABS: Basophils % 0.2 % (0.1-2.0); Hematocrit 35.3 % (37.0-47.0); Hemoglobin 12.2 g/dL (12.2-16.2); Lymphocytes % 11.5 % (10-50); Mean Corpuscular HGB Conc 34.7 g/dL (31.8-35.4); Mean Corpuscular Hemoglobin 30.8 pg (27.0-31.2); Mean Platelet Volume 7.5 fl (7.4-10.4); Monocytes # 0.4 K/mm3 (0.1-1.0); Monocytes % 4.4 % (1.7-9.3); Neutrophils # 7.2 K/mm3 (1.8-7.8); Neutrophils % 83.8 % (37.0-80.0); Platelet Count 119 K/mm3 (142-424); Red Blood Count 3.97 M/mm3 (4.20-5.40); White Blood Count 8.6 K/mm3 (4.8-10.8)
[2024-05-07 06:13] LABS: Potassium 3.3 mmoL/L (3.5-5.1)
[2024-05-07 06:14] LABS: Albumin Level 3.9 g/dl (3.5-5.0); Chloride 101 mmol/L (98-107); Sodium 136 mmol/L (136-145)
[2024-05-07 06:15] LABS: Blood Urea Nitrogen 11 mg/dl (7-17); Creatinine Clearance Estimated 53 mL/min (50-200); Estimated Glomerular Filt Rate 70 ml/min (>60); GFR (African American) 84 ML/MIN (>60)
[2024-05-07 06:16] LABS: Alkaline Phosphatase 66 U/L (38-126); Anion Gap 15.3 mEq/L (5-15); Aspartate Amino Transferase 39 U/L (14-36); Bilirubin,Total 0.5 mg/dl (0.2-1.3); Carbon Dioxide 23 mmol/L (22.0-30.0)
[2024-05-07 06:17] LABS: Alanine Aminotransferase 28 U/L (12-78); Albumin/Globulin Ratio 1.3 (1.1-1.8); Calcium 8.9 mg/dl (8.4-10.2); Globulin 2.9 g/dL (1.3-3.2); Glucose 314 mg/dl (74-100); Total Protein,Serum 6.8 g/dl (6.3-8.2)
[2024-05-07 06:21] LABS: Lactic Acid 4.1 mmol/L (0.7-2.1)
[2024-05-07] MEDS: LEVALBUTEROL 1.25MG/3ML NEB 1.25 MG IH ×4 (06:22→19:37)
[2024-05-07 07:02] LABS: POC Glucose,Bedside 270 (70-110)
--- NOTE | 2024-05-07 07:24 | PC.NURSE ---
05/07/24 Pt. was admitted overnight for atypical pneumonia. Pt. is alert and orientated x 4. Pt. on 4 liters [place] oxygen. Pt. is diabetic. Blood sugar was 450 when she was admitted. covered with sliding scale. Sherif Osuna aware. Pt's granddaughter at bedside. VSS personal items and call christopher in reach.
--- NOTE | 2024-05-07 08:58 | HMH.PHAINT1 ---
Pharmacy Intervention Comments: MEDICATION RECONCILIATION COMPLETED ON PATIENT USING EXTERNAL FILL HISTORY FROM PHARMACY AND DISCHARGE SUMMARY FROM PREVIOUS ADMISSION. -VIVEK HENDRICKS, RAMONAD
[2024-05-07 09:35] LABS: HIV (1&2) Antibody Rapid NONREACTIVE (NONREACTIVE)
[2024-05-07] MEDS: ENOXAPARIN 40MG/0.4ML SYRINGE 40 MG SUBCUT (09:35)
[2024-05-07] MEDS: ACETAMINOPHEN 325MG TAB 650 MG PO ×2 (09:35→20:01)
[2024-05-07] MEDS: guaiFENesin 600 MG TAB.ER.12H PO ×2 (09:35→20:03)
[2024-05-07] MEDS: METHYLPREDNISOLONE SOD SUCC 40MG VIAL 40 MG IV (09:36)
[2024-05-07 09:59] LABS: Reflex Lactic Add Lactic Reflex
[2024-05-07 10:44] LABS: POC Glucose,Bedside 270 (70-110)
[2024-05-07 12:15] LABS: Reflex Lactic (2 hrs) Add Lactic Reflex
--- NOTE | 2024-05-07 13:06 | EXP.ACUTE.PN ---
Subjective *Date: 05/07/24 *Time: 13:06 Interval history: Feeling marginally this morning, still necessitating 2 L nasal cannula oxygen. Weaning as tolerated. Tolerating p.o. intake. Denies chest pain. No nausea or vomiting. Medical Exam Vital signs and Labs for Last 24 Hours: Vital Signs Temp Pulse Pulse Resp BP BP Pulse Ox 05/07/24 13:00 05/07/24 12:00 98.9 F 91 H 18 144/70 H 96 05/07/24 10:39 05/07/24 09:43 90 05/07/24 09:43 85 05/07/24 09:43 90 L 05/07/24 09:00 05/07/24 08:00 05/07/24 08:00 98.4 F 97 H 18 147/80 H 96 05/07/24 07:00 05/07/24 06:22 92 H 05/07/24 06:22 96 H 05/07/24 06:22 96 05/07/24 05:00 05/07/24 04:00 98.0 F 93 H 20 151/62 H 97 05/07/24 03:00 05/07/24 02:17 05/07/24 01:00 05/07/24 00:00 98.0 F 77 16 144/61 H 93 L 05/06/24 23:00 05/06/24 22:45 05/06/24 22:43 98.0 F 113 H 25 H 157/67 H 91 L 05/06/24 22:02 98.2 F 117 H 24 154/69 H 05/06/24 22:00 116 H 24 154/69 H 88 L 05/06/24 21:30 116 H 20 159/65 H 89 L 05/06/24 21:19 103 H 05/06/24 21:00 109 H 22 152/57 H 97 05/06/24 20:30 106 H 20 154/64 H 97 05/06/24 20:00 111 H 16 139/62 97 05/06/24 19:30 110 H 23 158/60 H 98 05/06/24 19:00 110 H 20 178/71 H 99 05/06/24 17:59 98.2 F 101 H 22 217/99 H 95 O2 Del Method O2 Flow Rate 05/07/24 13:00 Nasal Cannula 2 05/07/24 12:00 Nasal Cannula 2 05/07/24 10:39 Nasal Cannula 2 05/07/24 09:43 05/07/24 09:43 05/07/24 09:43 Nasal Cannula 2 05/07/24 09:00 Nasal Cannula 4 05/07/24 08:00 Nasal Cannula 4 05/07/24 08:00 Nasal Cannula 3 05/07/24 07:00 Room Air 05/07/24 06:22 05/07/24 06:22 05/07/24 06:22 Nasal Cannula 4 05/07/24 05:00 Nasal Cannula 4 05/07/24 04:00 Nasal Cannula 4 05/07/24 03:00 Non-Rebreather 4 05/07/24 02:17 Nasal Cannula 4 05/07/24 01:00 Nasal Cannula 4 05/07/24 00:00 Nasal Cannula 2 05/06/24 23:00 Nasal Cannula 2 05/06/24 22:45 Nasal Cannula 2 05/06/24 22:43 Nasal Cannula 2 05/06/24 22:02 Nasal Cannula 2 05/06/24 22:00 05/06/24 21:30 05/06/24 21:19 05/06/24 21:00 05/06/24 20:30 05/06/24 20:00 Room Air 05/06/24 19:30 Room Air 05/06/24 19:00 Room Air 05/06/24 17:59 Room Air Intake and Output 05/06/24 05/07/24 05/07/24 23:59 07:59 15:59 Intake Total 510 / 510 Output Total 0 / 0 0 / 0 Balance 0 / 510 510 / 510 Intake: Intake, Oral Amount 510 / 510 Output: Output, Urine Amount 0 / 0 0 / 0 Other: Number of Unmeasured Voids 1 1 Number of Bowel Movements 1 Weight 69.264 kg 70.307 kg Patient Weight 05/07/24 23:59 Weight 70.307 kg Laboratory Results - last 24 hr 05/06/24 18:12: VBG pH 7.46 H, VBG pCO2 38.5, VBG pO2 112.5 H, VBG HCO3 27.0, VBG Total CO2 28.1 H, VBG O2 Saturation 98.3 H, VBG Base Excess 3.2 H, VBG Lactic Acid 1.9 05/06/24 18:25: WBC 9.0, RBC 4.42, Hgb 13.4, Hct 38.7, MCV 87.5, MCH 30.3, MCHC 34.7, RDW 14.0, Plt Count 122 L, MPV 7.6, Neut % (Auto) 72.5, Lymph % (Auto) 18.1, [place] % (Auto) 6.3, Eos % (Auto) 2.1, Baso % (Auto) 1.0, Neut # (Auto) 6.5, Lymph # (Auto) 1.6, [place] # (Auto) 0.6, Eos # (Auto) 0.2, Baso # (Auto) 0.1, Sodium 137, Potassium 3.3 L, Chloride 102, Carbon Dioxide 29, Anion Gap 9.3, BUN 5 L, Creatinine 0.60, Estimated Creat Clear 52, Estimated GFR 97, Est GFR ( Amer) 118, Glucose 175 H, Calcium 8.9, Total Bilirubin 1.2, AST 36, ALT 18, Alkaline Phosphatase 79, Troponin I < 0.01, NT-Pro-B Natriuret Pep 770 H, Total Protein 7.3, Albumin 4.0, Globulin 3.3 H, Albumin/Globulin Ratio 1.2 05/06/24 18:40: Chlamy pneumoniae PCR Not detected, Adenovirus (PCR) Not detected, B. pertussis DNA (PCR) Not detected, Coronavirus OC43 (PCR) Not detected, Coronavirus HKU1 (PCR) Not detected, Coronavirus 229E (PCR) Not detected, SARS-CoV-2 (PCR) Not detected 05/06/24 18:40: SARS-CoV-2 (PCR) Not detected, Coronavirus NL63 (PCR) Not detected, Human Metapneumovir PCR Not detected, Influenza A (H1) PCR Not detected, Influ A (H1N1/09) PCR Not detected, Influenza A (H3) PCR Not detected, Influenza Type A (PCR) Not detected, Influenza A Untype (PCR) Not detected, Influenza Type B (PCR) Not detected 05/06/24 18:40: Influenza Type B (PCR) Not detected, M. pneumoniae (PCR) Not detected, Parainfluenza 1 (PCR) Not detected, Parainfluenza 2 (PCR) Not detected, Parainfluenza 3 (PCR) Not detected, Parainfluenza 4 (PCR) Not detected, RSV (PCR) Detected A, Entero/Rhino (PCR) Not detected 05/07/24 04:10: POC Glucose 367 H* 05/07/24 05:50: WBC 8.6, RBC 3.97 L, Hgb 12.2, Hct 35.3 L, MCV 89.0, MCH 30.8, MCHC 34.7, RDW 14.0, Plt Count 119 L, MPV 7.5, Neut % (Auto) 83.8 H, Lymph % (Auto) 11.5, [place] % (Auto) 4.4, Eos % (Auto) 0.0 L, Baso % (Auto) 0.2, Neut # (Auto) 7.2, Lymph # (Auto) 1.0, [place] # (Auto) 0.4, Eos # (Auto) 0.0, Baso # (Auto) 0.0, Sodium 136, Potassium 3.3 L, Chloride 101, Carbon Dioxide 23, Anion Gap 15.3 H, BUN 11 D, Creatinine 0.80 D, Estimated Creat Clear 53, Estimated GFR 70, Est GFR ( Amer) 84 D, Glucose 314 H D, Lactate 4.1 H, Calcium 8.9, Magnesium 2.0, Total Bilirubin 0.5, AST 39 H, ALT 28 D, Alkaline Phosphatase 66, Total Protein 6.8, Albumin 3.9, Globulin 2.9, Albumin/Globulin Ratio 1.3, HIV 1&2 Antibody Rapid Nonreactive 05/07/24 06:54: POC Glucose 270 H 05/07/24 10:10: Lactate 4.0 H 05/07/24 10:35: POC Glucose 270 H I & O for Labs for Last 24 Hours: Intake & Output 05/04/24 05/05/24 05/06/24 05/07/24 23:59 23:59 23:59 23:59 Intake Total 510 / 510 Output Total 0 / 0 Balance 510 / 510 Weight 69.264 kg 70.307 kg Constitutional: Present no acute distress, average body habitus, chronically ill appearing and cooperative Head: Present atraumatic and normocephalic ENT: Present normal exam Respiratory: Present prolonged expiratory phase and wheezes (Diffuse); Absent respiratory distress, rhonchi or crackles Cardiac: Present Reg Rate and Rhythm GI: Present soft; Absent distention or tenderness Skin: Present intact; Absent cyanosis Neuro: Present Grossly Intact, alert, awake, oriented x 3 and moves all extremities Assessment and Plan *Assessment and plan (1) Acute hypoxemic respiratory failure: Status: Acute Category: Medical Code(s): J96.01 - Acute respiratory failure with hypoxia (2) RSV (acute bronchiolitis due to respiratory syncytial virus): Status: Acute Category: Medical Code(s): J21.0 - Acute bronchiolitis due to respiratory syncytial virus (3) Atypical pneumonia: Status: Acute Category: Medical Code(s): J18.9 - Pneumonia, unspecified organism (4) Supplemental oxygen dependent: Status: Acute Category: Medical Code(s): Z99.81 - Dependence on supplemental oxygen (5) Weakness generalized: Status: Acute Category: Medical Code(s): R53.1 - Weakness (6) Bipolar 1 disorder: Status: Acute Category: Medical Code(s): F31.9 - Bipolar disorder, unspecified Plan 74-year-old female with worsening functional decline, recently admitted for UTI and failure to thrive. Was discharged home with home health. Per to the ER with worsening shortness of breath. Found to have RSV and new oxygen requirement. Continues to require inpatient management. Weaning oxygen as tolerated. Problems addressed as follows: Acute hypoxemic respiratory failure RSV respiratory infection - Treating with azithromycin and ceftriaxone daily IV. -Continue supplemental oxygen as needed for goal sats greater 90%, wean to 2 L today -Transition to prednisone 40 mg p.o. daily -DuoNebs every 6 hours scheduled. -Respiratory panel positive for RSV Kidney function normal with BUN 11, creatinine 0.8. Potassium slightly low at 3.3. Repeat CBC, CMP, magnesium ordered for the morning. Failure to thrive Frequent falls Vertigo/dizziness -Falls doing better since stopping trazodone after last admission. Still having some weakness however. Will discharge home with home health when stable to discharge. Bipolar 1: -has been on medication for quite some time; continue Prozac 40 mg daily - Continue Lamictal 200 mg daily Hypothyroid: TSH normal at 3.5 at last visit earlier this month. Continue levothyroxine at 150 mcg daily hypertension: continue with metoprolol tartrate 25 mg daily and irbesartan formulary conversion 150 mg daily Diabetes: Continue Lantus 30 unit nightly; A1c earlier this month improved at 6.2. Sliding scale insulin with fingersticks ACHS DNR Diabetic diet
--- NOTE | 2024-05-07 15:38 | PC.NURSE ---
pt started shift on 4L nc. pt is currently on 3L nc and has been maintaining o2 sats above 90%. pt has had no complaints this shift. pt blood sugars have been slightly elevated, aware and contributed her elevated glucose to steroid use. pt is on high intensity sliding scale. family member at bedside. no new orders at this time. call light within reach.
[2024-05-07 16:24] LABS: POC Glucose,Bedside 325 (70-110)
[2024-05-07] MEDS: MONTELUKAST SODIUM 10MG TAB 10 MG PO (17:25)
[2024-05-07] MEDS: METOPROLOL TARTRATE 25MG TABLET 25 MG PO (20:03)
[2024-05-07] MEDS: CEFTRIAXONE 1 GM 1 GM in 0.9 % SODIUM CHLORIDE 50 ML IV (20:03)
[2024-05-07 22:27] LABS: POC Glucose,Bedside 228 (70-110)
[2024-05-08] VITALS (13 sets, daily range): BP systolic 142–182; BP diastolic 64–96; PULSE 60–97; RESP 14–18; TEMP 36.4–37.2; O2SAT 91–98; BMI 24.5
[2024-05-08] MEDS: ACETAMINOPHEN 325MG TAB 650 MG PO (01:50)
[2024-05-08] MEDS: LEVALBUTEROL 1.25MG/3ML NEB 1.25 MG IH ×4 (06:02→23:44)
[2024-05-08] MEDS: humaLOG 100 UNITS/ML 10ML VIAL (SSI) SUBCUT ×4 (06:24→21:46)
[2024-05-08 06:34] LABS: POC Glucose,Bedside 172 (70-110)
[2024-05-08 07:15] LABS: Albumin Level 3.6 g/dl (3.5-5.0); Chloride 103 mmol/L (98-107)
[2024-05-08 07:16] LABS: Potassium 3.8 mmoL/L (3.5-5.1); Sodium 139 mmol/L (136-145)
[2024-05-08 07:18] LABS: Alanine Aminotransferase 16 U/L (12-78); Albumin/Globulin Ratio 1.3 (1.1-1.8); Alkaline Phosphatase 59 U/L (38-126); Anion Gap 8.8 mEq/L (5-15); Aspartate Amino Transferase 32 U/L (14-36); Bilirubin,Total 0.4 mg/dl (0.2-1.3); Blood Urea Nitrogen 15 mg/dl (7-17); Carbon Dioxide 31 mmol/L (22.0-30.0); Creatinine Clearance Estimated 53 mL/min (50-200); Estimated Glomerular Filt Rate 70 ml/min (>60); GFR (African American) 84 ML/MIN (>60); Globulin 2.8 g/dL (1.3-3.2); Total Protein,Serum 6.4 g/dl (6.3-8.2)
[2024-05-08 07:19] LABS: Calcium 8.9 mg/dl (8.4-10.2); Glucose 168 mg/dl (74-100); Magnesium 1.8 mg/dl (1.6-2.3)
[2024-05-08 07:24] LABS: Basophils # 0.1 K/mm3 (0-0.2); Basophils % 0.4 % (0.1-2.0); Eosinophils # 0.1 K/mm3 (0.0-0.4); Eosinophils % 0.4 % (0.1-12.0); Hematocrit 35.4 % (37.0-47.0); Hemoglobin 12.2 g/dL (12.2-16.2); Lymphocytes # 3.1 K/mm3 (0.7-4.5); Lymphocytes % 22.4 % (10-50); Mean Corpuscular HGB Conc 34.3 g/dL (31.8-35.4); Mean Corpuscular Volume 90.4 fl (81-99); Mean Platelet Volume 7.2 fl (7.4-10.4); Monocytes # 0.8 K/mm3 (0.1-1.0); Monocytes % 5.6 % (1.7-9.3); Neutrophils # 9.9 K/mm3 (1.8-7.8); Neutrophils % 71.2 % (37.0-80.0); Platelet Count 149 K/mm3 (142-424); Red Blood Count 3.92 M/mm3 (4.20-5.40); Red Cell Distribution Width 14.1 % (11.5-17.5); White Blood Count 13.9 K/mm3 (4.8-10.8)
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
--- OUTSIDE RECORDS SUMMARY | 2024-05-08 07:28 | XMS_ITS | Encounter Summary ---
Author Organization [employer] Address [address] [place] [address] Care Team Providers Care Painter Rough Name Role Phone Unavailable Primary Care Provider Unavailabl e Reason for Visit * Reason Onset Date Comments APPT CANCELLED 04/20/2022 PER PT ADVOCATE CW PT WANTS TO CANCEL APPT ON 04/21/22 Encounter Details Date Type Department Care Team (Late st Contact Info) Description 04/20/2022 Telephone [facility] - [place] [address] [place] [address] Don Morales MD [address] [address] APPT CANCELLED (PER PT ADVOCATE CW PT WANTS TO CANCEL APPT ON 04/21/22) Social History Tobacco Use Types Packs/Day Years Used Date Smoking Tobacco: Former Cigarettes Q uit: 2014 Smokeless Tobacco: Never Alcohol Use Standard Drinks/Week Comments Never 0 (1 standard drink = 0.6 oz pur e alcohol) Comments Unknown Sex and Gender Information Value Date Recorded Sex Assigned at Not on file Legal Sex Female 7:26 AM CDT Gender Identity Not on file Sexual Orientation Not on file Occupation Industry Job Start Date 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 Not on file Not on file Not on file documented as of this encounter Miscellaneous Notes * Telephone Encounter - Karmen Bagley - 04/20/2022 1:59 PM ESTSummary: APPT CANCELLED PER PT ADVOCATE CW PT WANTS TO CANCEL APPT ON 04/21/22 [employer] documented in this encounter Plan of Treatment Not on file documented as of this encounter Visit Diagnoses Not on filedocumented in this encounter
--- OUTSIDE RECORDS SUMMARY | 2024-05-08 07:28 | XMS_ITS | Encounter Summary ---
Author Organization [facility] [employer] Address [address] [place] [address] Care Team Providers Care Travel Pta Name Role Phone Jessie Fine MD Unavailable [phone] Encounter Details Date Type Department Care Team (Late st Contact Info) Description 10/14/2022 Telephone [facility] - [address] [place] [address] [facility] [place] Social History Tobacco Use Types Packs/Day Years [...] on file documented as of this encounter Plan of Treatment Not on file documented as of this encounter Visit Diagnoses Not on filedocumented in this encounter Care Teams Travel Pta Relationship Specialty Start Date End Date Jessie Fine MD [address] [place] [address] Referring Physician Hematology and Oncology 10/16/22 documented as of this encounter
--- OUTSIDE RECORDS SUMMARY | 2024-05-08 07:28 | XMS_ITS | Encounter Summary ---
Author Organization [facility] [employer] Address [address] [place] [address] Care Team Providers Care Physician Representative Name Role Phone Unavailable Primary Care Provider Unavailabl e Encounter Details Date Type Department Care Team (Late st Contact Info) Description 06/11/2022 Orders Only [facility] - [address] [place] [address] Jessie Fine MD [address] [place] [phone] Lymphadenopathy (Primary Dx) Social History Tobacco Use Types Packs/Day Years [...] as of this encounter Visit Diagnoses Diagnosis Lymphadenopathy- Primary Enlargement of lymph nodes documented in this encounter
--- OUTSIDE RECORDS SUMMARY | 2024-05-08 07:28 | XMS_ITS | Encounter Summary ---
Author Organization [facility] [employer] Address [address] [facility] [place] [address] Care Team Providers Care Curb Supervisor Name Role Phone Jessie Fine MD Primary Care Provider [phone] Encounter Details Date Type Department Care Team (Late st Contact Info) Description 05/14/2022 Abstract [facility] Health Information Management [address] [place] [address] Renetta Macario Social History Tobacco Use Types Packs/Day Years [...] on file documented as of this encounter Progress Notes * Lynne Mehta - 05/14/2022 2:49 PM EST Subjective Review of Systems Objective Last Recorded Vitals There were no vitals taken for this visit. Physical Exam Labs: No results found for this visit on 05/14/22 (from the past 24 hour(s)). No image results found. Assessment @ASSESSMENTTEXT@ Plan @PLANTEXT@ Discharge Planning: documented in this encounter Plan of Treatment Not on file documented as of this encounter Visit Diagnoses Not on filedocumented in this encounter Care Teams Curb Supervisor Relationship Specialty Start Date End Date Jessie Fine MD [address] [place] [address] PCP - General Hematology and Oncology 05/04/2206/10/ 3 documented as of this encounter
--- OUTSIDE RECORDS SUMMARY | 2024-05-08 07:28 | XMS_ITS | Encounter Summary ---
Author Organization [employer] Address [address] [place] [address] Care Team Providers Care Chief Credit Officer Name Role Phone Jessie Hurtado MD Primary Care Provider [phone] Reason for Visit * Reason Comments new pt consult lymphadema Encounter Details Date Type Department Care Team (Latest Contact Info) Description 05/04/2022 11:00 AM EST Office Visit [facility] Oncology - [address] [place] [address] Jessie Hurtado MD [address] [place] [phone] Lymphadenopathy (Primary Dx); Localized enlarged lymph nodes Social History Tobacco Use Types Packs/Day Years [...] Sign Reading Time Taken Comments Blood Pressure 151/69 05/04/2022 10:59 AM EST Pulse 66 05/04/2022 10:59 AM EST Temperature 36.6 ??C (97.8 ??F) 05/04/2022 1 0:59 AM EST Respiratory Rate 18 05/04/2022 10:5 9 AM EST Oxygen Saturation 97% 05/04/2022 10: 59 AM EST Inhaled Oxygen Concentration - - Weight 72.9 kg (160 lb 11.5 oz) 022 10:59 AM EST Height 170.2 cm (5' 7 ) 05/04/2022 10:5 9 AM EST Body Mass Index 25.17 05/04/2022 10:59 AM EST documented in this encounter Progress Notes * Jessie Hurtado MD - 05/04/2022 11:00 AM EST Chief Complaint: Fatigue History of Present Illness: Sweetie Hidalgo is a 72 y.o. female who presents today for evaluation of lymphadenopathy. She was in her normal state of health until 02/26 when she was admitted to [facility] for pneumonia. She had CT scans performed during that admission which showed some adenopathy in her abdomen.She has not noticed any palpable adenopathy. Her weight is stable and she denies fevers, chills, night sweats. She has no history of malignancy or hematologic disorders. Her fatigue has been present for a number of years. Past Medical History: Diagnosis Date ??? Asthma [...] CHOLECYSTECTOMY 11/2019 ??? MASTOIDECTOMY ??? TUBAL LIGATION Social History Socioeconomic History ??? Marital status: Spouse name: None ??? Number of children: None ??? Years of education: None ??? Highest education level: None Occupational History ??? 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 Smoking status: Former Smoker Quit date: 2014 Years since quittin.9 ??? Smokeless tobacco: Never Used Substance and Sexual Activity ??? Alcohol use: Never ??? Drug use: Never ??? Sexual activity: None Other Topics Concern ??? None Social History Narrative ??? None Social Determinants of Health Financial Resource Strain: Not on file Food Insecurity: Not on file Transportation Needs: Not on file Physical Activity: Not on file Stress: Not on file Social Connections: Not on file Intimate Partner Violence: Not on file Family History Problem Relation Age of Onset ??? Breast cancer Mother ??? Diabetes Mother ??? Cancer Mother ??? Anxiety disorder Sister ??? Cancer Father Allergies: Bupropion Medications: Current Outpatient Medications on File Prior to Visit Medication Sig Dispense Refill ??? Valdez Allen U-100 Insulin 100 unit/mL (3 mL) InPn Inject subcutaneously. ??? busPIRone (BUSPAR) 5 MG tablet Take 5 mg by mouth 3 (three) times daily. ??? fLUoxetine (PROzac) 20 MG capsule Take 30 mg by mouth daily. ??? rrseyohqsyu-byfgvtoth-hxdwtaii (Trelegy Ellipta) 100-62.5-25 mcg DsDv Inhale by [...] for fatigue. HENT: Negative. Eyes: Negative. Respiratory: Positive for wheezing. Cardiovascular: Negative. Gastrointestinal: Negative. Genitourinary: Negative. Musculoskeletal: Negative. Neurological: Negative. Hematological: Negative. Psychiatric/Behavioral: Positive for sleep disturbance. Vitals Vitals: 05/04/22 1059 BP: (!) 151/69 Pulse: 66 Resp: 18 Temp: 97.8 ??F (36.6 ??C) SpO2: 97% Physical Exam Vitals reviewed. Constitutional: Appearance: Normal appearance. She is normal weight. HENT: Head: Normocephalic and atraumatic. Mouth/Throat: Mouth: Mucous membranes are moist. Pharynx: Oropharynx is clear. Eyes: Extraocular Movements: Extraocular movements intact. Conjunctiva/sclera: Conjunctivae normal. Pupils: Pupils are equal, round, and reactive to light. Cardiovascular: Rate and Rhythm: Normal rate and regular rhythm. Heart sounds: Normal heart sounds. Pulmonary: Effort: Pulmonary effort is normal. Breath sounds: Normal breath sounds. Abdominal: General: Abdomen is flat. Bowel sounds are normal. Palpations: Abdomen is soft. Lymphadenopathy: Head: Right side of head: No submental, submandibular, preauricular, posterior auricular or occipital adenopathy. Left side of head: Occipital adenopathy present. No submental, submandibular, preauricular or posterior auricular adenopathy. Cervical: No cervical adenopathy. Upper Body: Right upper body: No supraclavicular or axillary adenopathy. Left upper body: No supraclavicular or axillary adenopathy. Neurological: Mental Status: She is alert. Relevant Results: No results found for any previous visit. CBC - 02/26 - [facility] - WBC 6.6; HGB 13.9; HCT 40.8; Platelets 150,000. Radiology Results (last 7 days) Procedure Component Value Units Date/Time CT abdomen/pelvis with IV contrast [[id number]] Order Status: Sent CT chest with IV contrast [[id number]] Order Status: Sent CT chest - 02/26/22 - nonspecific pneumonitis, no mass or adenopathy - [facility] CT abdomen and pelvis - 02/26 - stable liver lesion, absent gallbladder, moderate portal and retroperitoneal adenopathy, liver enlarged up to 19 cm, spleen enlarged up to 14 cm. Pancreas and adrenals are unremarkable. - [facility]. Plan: Ms. Hidalgo appears to have benign lymphadenopathy in her abdomen. It would be reasonable to repeat CT scans 4 months from the previous scans to assess stability of these nodes. Her CBC is normal and I see no hematologic reason for her fatigue. I will see her back with results of her scans. Signed: Electronically signed by JESSIE HURTADO MD 05/04/22 12:11 PM EST CAD DRAFTSMAN documented in this encounter Plan of Treatment Not on file documented as of this encounter Visit Diagnoses Diagnosis Lymphadenopathy- Primary Enlargement of lymph nodes Localized enlarged lymph nodes documented in this encounter Care Teams Chief Credit Officer Relationship Specialty Start Date End Date Jessie Hurtado MD [address] [place] [address] PCP - General Hematology and Oncology 05/04/2206/10/ 3 documented as of this encounter
--- OUTSIDE RECORDS SUMMARY | 2024-05-08 07:28 | XMS_ITS | Data Portability ---
Author Organization [facility] Marvin serrano, [facility] CLOSED Address [address] [place] [address] Care Team Providers Care Hand Launderer Name Role Phone FRANK DAVIS Primary Care Provider Assessment Encounter Date Assessment Date Assessment LastModified by Organization Details LastModified Time 10/13/2016 10/13/2016 1. Rare episodes visual hallucination , without recurrence, etiology not evident 2. Transient episodes of memory loss, etiology not evident 3. Brain MRI revealed mild cerebral atrophy per patient's report (MRI disc would not play images) Plan 1. Blood test today, CBC, CMP, B12, TSH, T4 2. no further tests or scans needed except blood tests as listed. 3. Follow up in May; sooner if symptoms recur or if new symptoms arise. [email or web address] Not available 10/13/2016 22:54:56 Plan of Treatment Reminders Order Date Submit Date Provider Last Modified By Organization Details Last Modified Time Details Appointments None recorded. Lab CBC w/ auto diff 2016 017 [facility], [address] [place] [address], [id number], 7 15:22:16 CMP, serum or plasma 2016 017 [facility], [address] [place] [address], [address], 7 15:19:54 TSH, serum or plasma 2016 017 [facility], [address] [place] [address], [address], 7 15:29:53 T4, free, serum 2016 017 [facility], [address] [place] [address], [address], 7 15:28:09 vitamin B1 (thiamine), blood 2016 017 [facility], [address] [place] [address], [address], 7 09:19:46 vitamin B12, serum 2016 017 [facility], [address] [place] [address], [address], 7 15:39:29 CK (creatine kinase), total, serum 2018 019 [facility], [address] [place] [address], [address], 9 11:29:04 C reactive protein, QN, serum or plasma 2018 019 [facility], [address] [place] [address], [address], 9 11:29:06 ESR (erythrocyt e sedimentati on rate), blood 2018 019 [facility], [address] [place] [address], [address], 9 12:49:03 PRISCILLA (antinuclea r antibodies) panel, serum 2018 019 [facility], [address] [place] [address], [address], 9 15:01:11 Referral None recorded. Procedures None recorded. Surgeries None recorded. Imaging XR, hip, bilateral, 2 view 2018 019 [facility], [address] [place] [address], [address], 9 11:04:26 XR, knee, 3 view 2018 019 [facility], [address] [place] [address], [id number], 9 11:03:46 Medication Orders None recorded. Patient TargetsNo targets recorded. Patient Instructions Encounter Date Encounter Id Patient Instructions Last Modified By Organization Details Last Modified Time 04/17/2019 [id number] osteoarthritis: care instructions Not available 04/17/2019 10:28:04 06/05/2019 [id number] osteoarthritis: care instructions Not available 06/05/2019 15:55:19 Reason for Referral None Reported. Results Created Date Observation Date Name Description Value Unit Range Abnormal Flag Note LastModifiedBy Organization Detail LastModifiedTime 10/14/19 17 10/13/2016 CMP, serum or plasm a glucose 97 mg/dL 74-100 normal Not Available [facility] [address] [place] [address], [address], 10/13/2016 15:19:54 10/14/19 17 10/13/2016 CMP, serum or plasm a blood urea nitrogen 9 mg/dL 6-20 normal Not Available [facility] [address] [place] [address], [address], 10/13/2016 15:19:54 10/14/19 17 10/13/2016 CMP, serum or plasm a creatinine 0.65 mg/dL 0.50-0 .95 normal Not Available [facility] [address] [place] [address], [address], 10/13/2016 15:19:54 10/14/19 17 10/13/2016 CMP, serum or plasm a BUN/creatini ne ratio 14 (calc ) 10-20 normal Not Available [facility] [address] [place] [address], [address], 10/13/2016 15:19:54 10/14/19 17 10/13/2016 CMP, serum or plasm a 105 >= 60 normal Not Available [facility] [address] [place], [address], 10/13/2016 15:19:54 10/14/19 17 10/13/2016 CMP, serum or plasm a non- 91 >= 60 normal NOT E NEW calcu latio n for GFR is based on the Natio nal Kidne y Found ation CKD-E PI equat ion and allow s for repor ting GFR value s great er than 60 mL/mi n/1.7 3 m2. This calcu latio n has not been valid ated for patie nts less than 18 yrs., pregn ant women and Hispa nics. Chron ic kidne y disea se is defin ed as kidne y damag e or GFR less than 60 mL/mi n/1.7 3 m2 for 3 month s or longe r. . Not Available [facility] [address] [place] [address], [address], 10/13/2016 15:19:54 10/14/19 17 10/13/2016 CMP, serum or plasm a sodium 139 mmol/ L 136-14 5 normal Not Available [facility] [address] [place] [address], [address], 10/13/2016 15:19:54 10/14/19 17 10/13/2016 CMP, serum or plasm a potassium 3.8 mmol/ L 3.4-5. 0 normal Not Available [facility] [address] [place], [address], 10/13/2016 15:19:54 10/14/19 17 10/13/2016 CMP, serum or plasm a chloride 99 mmol/ L 98-107 normal Not Available [facility] [address] [place], [address], 10/13/2016 15:19:54 10/14/19 17 10/13/2016 CMP, serum or plasm a carbon dioxide 27 mmol/ L 20-32 normal Not Available [facility] [address] [place], [address], 10/13/2016 15:19:54 10/14/19 17 10/13/2016 CMP, serum or plasm a anion gap 13 (calc ) 7-19 normal Not Available [facility] [address] [place] [address], [address], 10/13/2016 15:19:54 10/14/19 17 10/13/2016 CMP, serum or plasm a calcium 9.1 mg/dL 8.6-10 .2 normal Not Available [facility] [address] [place] [address], [address], 10/13/2016 15:19:54 10/14/19 17 10/13/2016 CMP, serum or plasm a total protein 7.8 g/dL 6.4-8. 3 normal Not Available [facility] [address] [place] [address], [address], 10/13/2016 15:19:54 10/14/19 17 10/13/2016 CMP, serum or plasm a albumin 4.0 g/dL 3.5-5. 2 normal Not Available [facility] [address] [place] [address], [address], 10/13/2016 15:19:54 10/14/19 17 10/13/2016 CMP, serum or plasm a globulin 3.8 g/dL_ calc 1.5-4. 5 normal Not Available [facility] [address] [place] [address], [address], 10/13/2016 15:19:54 10/14/19 17 10/13/2016 CMP, serum or plasm a albumin/glob ulin ratio 1.1 calc 1.1-2. 5 normal Not Available [facility] [address] [place] [address], [address], 10/13/2016 15:19:54 10/14/19 17 10/13/2016 CMP, serum or plasm a bilirubin, total 0.3 mg/dL 0.1-1. 2 normal Not Available [facility] [address] [place], [address], 10/13/2016 15:19:54 10/14/19 17 10/13/2016 CMP, serum or plasm a alkaline phosphatase 51 U/L 35-105 normal Not Available [facility] [address] [place] [address], [address], 10/13/2016 15:19:54 10/14/19 17 10/13/2016 CMP, serum or plasm a AST 17 U/L 0-32 normal Not Available [facility] [address] [place] [address], [address], 10/13/2016 15:19:54 10/14/19 17 10/13/2016 CMP, serum or plasm a ALT 11 U/L 0-33 normal Not Available [facility] [address] [place] [address], [address], 10/13/2016 15:19:54 10/14/19 17 10/13/2016 CBC w/ auto diff white blood cells 11.1 K/uL 3.8-10 .8 high Not Available [facility] [address] [place] [address], [address], 10/13/2016 15:22:16 10/14/19 17 10/13/2016 CBC w/ auto diff red blood cells 4.15 M/uL 3.80-5 .20 normal Not Available [facility] [address] [place] [address], [address], 10/13/2016 15:22:16 10/14/19 17 10/13/2016 CBC w/ auto diff hemoglobin 13.0 g/dL 12.0-1 6.0 normal Not Available [facility] [address] [place] [address], [address], 10/13/2016 15:22:16 10/14/19 17 10/13/2016 CBC w/ auto diff hematocrit 37.7 % 35.0-4 7.0 normal Not Available [facility] [address] [place], [address], 10/13/2016 15:22:16 10/14/19 17 10/13/2016 CBC w/ auto diff MCV 91 fL 80-100 normal Not Available [facility] [address] [place] [address], [address], 10/13/2016 15:22:16 10/14/19 17 10/13/2016 CBC w/ auto diff MCH 31 pg 26-35 normal Not Available [facility] [address] [place] [address], [address], 10/13/2016 15:22:16 10/14/19 17 10/13/2016 CBC w/ auto diff MCHC 35 g/dL 32-36 normal Not Available [facility] [address] [place] [address], [address], 10/13/2016 15:22:16 10/14/19 17 10/13/2016 CBC w/ auto diff RDW 12.8 % 11.0-1 5.0 normal Not Available [facility] [address] [place] [address], [address], 10/13/2016 15:22:16 10/14/19 17 10/13/2016 CBC w/ auto diff MPV 7.2 fL 6.2-10 .5 normal Not Available [facility] [address] [place] [address], [address], 10/13/2016 15:22:16 10/14/19 17 10/13/2016 CBC w/ auto diff platelet count 216 K/uL 130-40 0 normal Not Available [facility] [address] [place] [address], [address], 10/13/2016 15:22:16 10/14/19 17 10/13/2016 CBC w/ auto diff neutrophil,a bsolute 5.3 K/uL 1.6-8. 4 normal Not Available [facility] [address] [place] [address], [address], 10/13/2016 15:22:16 10/14/19 17 10/13/2016 CBC w/ auto diff lymphocyte,a bsolute 4.2 K/uL 0.4-5. 1 normal Not Available [facility] [address] [place] [address], [address], 10/13/2016 15:22:16 10/14/19 17 10/13/2016 CBC w/ auto diff monocyte,abs olute 0.9 K/uL 0.0-1. 2 normal Not Available [facility] [address] [place] [address], [address], 10/13/2016 15:22:16 10/14/19 17 10/13/2016 CBC w/ auto diff eosinophil,a bsolute 0.6 K/uL 0.0-0. 8 normal Not Available [facility] [address] [place] [address], [address], 10/13/2016 15:22:16 10/14/19 17 10/13/2016 CBC w/ auto diff basophil,abs olute 0.1 K/uL 0.0-0. 3 normal Not Available [facility] [address] [place] [address], [address], 10/13/2016 15:22:16 10/14/19 17 10/13/2016 CBC w/ auto diff % neutrophils 48.0 % 42.0-7 8.0 normal Not Available [facility] [address] [place] [address], [address], 10/13/2016 15:22:16 10/14/19 17 10/13/2016 CBC w/ auto diff % lymphocytes 37.7 % 11.0-4 7.0 normal Not Available [facility] [address] [place] [address], [address], 10/13/2016 15:22:16 10/14/19 17 10/13/2016 CBC w/ auto diff % monocytes 8.4 % 0.0-11 .0 normal Not Available [facility] [address] [place] [address], [address], 10/13/2016 15:22:16 10/14/19 17 10/13/2016 CBC w/ auto diff % eosinophils 5.3 % 0.0-7. 0 normal Not Available [facility] [address] [place] [address], [address], 10/13/2016 15:22:16 10/14/19 17 10/13/2016 CBC w/ auto diff % basophils 0.6 % 0.0-3. 0 normal Not Available [facility] [address] [place] [address], [address], 10/13/2016 15:22:16 10/14/19 17 10/13/2016 CBC w/ auto diff nucleated red cells 0.0 % 0.0-0. 9 normal Not Available [facility] [address] [place] [address], [address], 10/13/2016 15:22:16 10/14/19 17 10/13/2016 CBC w/ auto diff nucleated RBCs, absolute 0.00 K/uL not estab. normal Not Available [facility] [address] [place] [address], [address], 10/13/2016 15:22:16 10/14/19 17 10/13/2016 T4, free, serum T4,free 1.22 NG/dL 0.93-1 .70 normal Not Available [facility] [address] [place] [address], [address], 10/13/2016 15:28:09 10/14/19 17 10/13/2016 TSH, serum or plasm a TSH 11.140 uIU/m L 0.290- 5.500 high Not Available [facility] [address] [place] [address], [address], 10/13/2016 15:29:53 10/14/19 17 10/13/2016 vitam in B12, serum vitamin B12 221 pg/mL 211-94 6 normal Not Available [facility] [address] [place], [address], 10/13/2016 15:39:29 10/14/19 17 10/17/2016 vitam in B1 (thia mine) , blood vitamin B1 159 nmol/ L 78-185 normal Vitam in suppl ement ation withi n 24 hours prior to blood draw may affec t the accur acy of resul ts. This test was devel oped and its mervat tical perfo rmanc e jerry cteri stics have been deter mined by [facility]. It has not been clear ed or appro young by FDA. This assay has been valid ated pursu ant to the CLIA regul ation s and is used for clini durga purpo ses. TEST PERFO RMED AT: [facility] [address] [facility] [place] [address] [facility] RADHA WILKINS MD ,FCAP Not Available [facility] [address] [place], [address], 10/17/2016 09:19:46 04/17/20 19 04/17/2019 CK (crea fariha kinas e), total , serum creatine kinase 32 U/L 0-169 normal Not Available [facility] [address] [place], [address], 04/17/2019 11:29:04 04/17/2004/17/2019 C react danny prote in, QN, serum or plasm a C reactive protein 0.67 mg/dL 0.00-0 .50 high Jackie ntrat ions of < 1 mg/dL exclu de many acute infla mmato ry disea ses but do not speci fical ly exclu de infla mmato ry proce sses. [place] kallie jackie ntrat ions of < 5 mg/dL in acute disea se occur in the prese nce of sligh t to moder ate infla mmato ry proce sses. Value s > 5 mg/dL indic ate high and exten sive infla mmato ry activ ity. Not Available [facility] [address] [place], [address], 04/17/2019 11:29:06 04/17/20 19 04/17/2019 ESR (eryt hrocy te sedim entat ion rate) , blood ESR, automated 20 mm/HR 0-29 normal Not Available [facility] [address] [place], [address], 04/17/2019 12:49:03 04/17/20 19 04/20/2019 PRISCILLA (anti nucle ar antib odies ) panel , serum PRISCILLA screen POSITI VE negati ve abnormal PRISCILLA IFA is a first line scree n for detec ting the prese nce of up to appro ximat bhumi 150 autoa ntibo dies in vario us autoi mmune disea ses. A posit danny PRISCILLA IFA resul t is sugge stive of autoi mmune disea se and refle xes to titer and [place]honny beach. Furth er labor atory testi ng may be consi dered if clini genaro indic ated. For addit ional infor alden anderson e refer to http: //[facility] meet vazquez.Que stDia gnost ics.c om/fa q/FAQ 177 (This link is being provi ded for infor idris strickland/ educa peggy l purpo ses only. ) TEST PERFO RMED AT: [facility] [place] [address] [place] [address] YOJANA Baez MD Not Available [facility] [address] [place], [address], 04/20/2019 15:01:11 04/17/20 19 04/20/2019 PRISCILLA (anti nucle ar antib odies ) panel , serum PRISCILLA titer 1:80 titer high A low level PRISCILLA titer may be prese nt in pre-c linic al autoi mmune disea ses and jose l indiv idual s. Refer ence Range <1:40 Negat danny 1:40- 1:80 Low Antib flory Level >1:80 [place] kallie Antib flory Level Not Available [facility] [address] [place] [address], [address], 04/20/2019 15:01:11 04/17/20 19 04/20/2019 PRISCILLA (anti nucle ar antib odies ) panel , serum PRISCILLA pattern SEE BELOW abnormal Nucle ar, Speck led Speck led patte rn is assoc iated with mixed conne ctive tissu e disea se (MCTD ), syste tenisha lupus eryth emato yajaira (SLE) , Sjogr en's syndr ome, derma tomyo sitis , and syste tenisha scler osis/ polym yosit is overl ap. AC-2, 4,5,2 9: Speck led Inter natio nal Conse nsus on PRISCILLA Patte rns (http s://d oi.or g/10. 2175/ [facility]- 2018- 0052) TEST PERFO RMED AT: [facility] [place] [address] [place] [address] YOJANA Baez MD Not Available [facility] [address] [place] [address], [address], 04/20/2019 15:01:11 04/17/20 19 04/20/2019 PRISCILLA refle x testi ng C3 179 mg/dL 83-193 normal TEST PERFO RMED AT: [facility] [place] [address] [place] [address] YOJANA Baez MD Not Available [facility] [address] [place] [address], [address], 04/20/2019 17:00:28 04/17/20 19 04/20/2019 PRISCILLA refle x testi ng C4 32 mg/dL 15-57 normal TEST PERFO RMED AT: [facility] [place] [address] [place] [address] YOJANA Baez MD Not Available [facility] [address] [place] [address], [address], 04/20/2019 17:00:28 04/17/20 19 04/20/2019 PRISCILLA refle x testi ng C3 179 mg/dL 83-193 normal TEST PERFO RMED AT[facility] [place] [address] [facility] [place] [address] YOJANA Baez MD Not Available [facility] [address] [place] [address], [address], 04/21/2019 16:36:37 04/17/20 19 04/20/2019 PRISCILLA refle x testi ng C4 32 mg/dL 15-57 normal TEST PERFO RMED AT: [facility] [place] [address] [facility] [place] [place] [address] YOJANA Baez MD Not Available [facility] [address] [place] [address], [address], 04/21/2019 16:36:37 04/17/20 19 04/21/2019 PRISCILLA refle x testi ng sm antibody <1.0 NEG ai <1.0 neg normal Not Available [facility] [address] [place] [address], [address], 04/21/2019 16:36:37 04/17/20 19 04/21/2019 PRISCILLA refle x testi ng sm/digital developer Ab <1.0 NEG ai <1.0 neg normal TEST PERFO RMED AT: [facility] [address] [facility] [place] [address] YOJANA Baez MD Not Available [facility] [address] [place] [address], [address], 04/21/2019 16:36:37 04/17/20 19 04/21/2019 PRISCILLA refle x testi ng ss-A Ab >8.0 POS ai <1.0 neg abnormal Not Available [facility] [address] [place] [address], [address], 04/21/2019 16:36:37 04/17/20 19 04/21/2019 PRISCILLA refle x testi ng ss-B Ab 1.0 POS ai <1.0 neg abnormal TEST PERFO RMED AT: [facility] [place] [address] [place] [address] YOJANA Baez MD Not Available [facility] [address] [place] [address], [address], 04/21/2019 16:36:37 04/17/20 19 04/21/2019 PRISCILLA refle x testi ng scleroderma Ab <1.0 NEG ai <1.0 neg normal TEST PERFO RMED AT: [facility] [place] [address] [place] [address] YOJANA Baez MD Not Available [facility] [address] [place] [address], [address], 04/21/2019 16:36:37 04/17/20 19 04/20/2019 PRISCILLA refle x testi ng C3 179 mg/dL 83-193 normal TEST PERFO RMED AT: [facility] [place] [address] [facility] [place] [address] YOJANA Baez MD Not Available [facility] [address] [place] [address], [address], 04/22/2019 12:16:10 04/17/20 19 04/20/2019 PRISCILLA refle x testi ng C4 32 mg/dL 15-57 normal TEST PERFO RMED AT: [facility] [place] [address] [place] [address] YOJANA Baez MD Not Available [facility] [address] [place] [address], [address], 04/22/2019 12:16:10 04/17/20 19 04/21/2019 PRISCILLA refle x testi ng sm antibody <1.0 NEG ai <1.0 neg normal Not Available [facility] [address] [place] [address], [address], 04/22/2019 12:16:10 04/17/20 19 04/21/2019 PRISCILLA refle x testi ng sm/digital developer Ab <1.0 NEG ai <1.0 neg normal TEST PERFO RMED AT: [facility] [place] [address] [place] [address] YOJANA Baez MD Not Available [facility] [address] [place] [address], [address], 04/22/2019 12:16:10 04/17/20 19 04/21/2019 PRISCILLA refle x testi ng ss-A Ab >8.0 POS ai <1.0 neg abnormal Not Available [facility] [address] [place] [address], [address], 04/22/2019 12:16:10 04/17/20 19 04/21/2019 PRISCILLA refle x testi ng ss-B Ab 1.0 POS ai <1.0 neg abnormal TEST PERFO RMED AT: [facility] [place] [address] [facility] [place] [address] YOJANA Baez MD Not Available [facility] [address] [place] [address], [address], 04/22/2019 12:16:10 04/17/20 19 04/21/2019 PRISCILLA refle x testi ng scleroderma Ab <1.0 NEG ai <1.0 neg normal TEST PERFO RMED AT: [facility] [place] [address] [place] [address] YOJANA Baez MD Not Available [facility] [address] [place] [address], [address], 04/22/2019 12:16:10 04/17/20 19 04/22/2019 PRISCILLA refle x testi ng DNA (ds) Ab NEGATI VE negati ve normal TEST PERFO RMED AT: [facility] [place] [address] [place] [address] YOJANA Baez MD Not Available [facility] [address] [place] [address], [address], 04/22/2019 12:16:10 04/17/20 19 04/17/2019 XR, knee, [address] [address] [place] Name: SWEETIE ayala : [phone] Mayra t Orderi ng Provid er: TERRISHORE EXAM DATE: 2018 EXAM: XR [place] KNEES 3 VIEWS HISTOR Y: Bilate ral knee pain. COMPAR LORA: None. FINDIN GS: There are mild osteoa rthrit ic change s. There is mild margin al osteop hytic spurri ng. There is mild loss of joint space in the medial femoro tibial compar tment. There is no eviden ce of fractu re. IMPRES ESTELITA: 1. There are mild osteoa rthrit ic change s in both knees. Interp reted By: Isamar flores MD Electr onical ly Signed By: Isamar flores MD on 2018 10:58 AM [email or web address] [facility] [address], [address], 05/01/2019 12:10:41 04/17/20 19 04/17/2019 XR, hip, bilat eral, [address] [place] [address] [place]le t Name: SWEETIE ayala : [phone] Mayra t Orderi ng Provid er: TERRISHORE EXAM DATE: 2018 EXAM: XR [place] HIPS, 2 VWS COMPAR LORA: None. HISTOR Y: Bilate ral hip pain. FINDIN GS: There are mild degene rative change s in both hips. There is mild margin al spurri ng. The joint space appear s normal . There are subcor tical cystic change s along the femora l necks. There are mild degene rative change s in the SI joints . There is no acute fractu re. IMPRES ESTELITA: 1. There are mild degene rative change s in the hips and pelvis . Interp reted By: Isaamr flores MD Electr onical ly Signed By: Isamar flores MD on 2018 10:[address], [address], 05/01/2019 12:10:41 Result Notes None recorded. Problems Name Problem SNOMED Code Status Onset Date Resolution Date Notes Provider Name and Address Organization Details Recorded Time Transient memory loss Active [facility] Problem Notes None recorded. Procedures Surgical History Date Name Laterality Status Provider Name and Address Organization Details Recorded Time Other completed Ryley Orozco [facility] 10/13/2016 13:04:37 Imaging Results Imaging Date Name Status LastModified by Organiz ation Details LastModified Time 04/17/2019 XR, knee, 3 view completed [address], [address], 05/01/2019 12:10:41 04/17/2019 XR, hip, bilateral, 2 view completed [address] [place], [address], 05/01/2019 12:10:41 Procedure Notes None recorded. Medical Equipment None Reported. Allergies No known drug allergies Medications Name Sig Start Date Stop Date Status Note LastModified by Organization Details LastModified Time losartan 50 mg tablet once daily active Not Available Not Available No t Available fluoxetin e 40 mg capsule once daily active Not Available Not Available No t Available furosemid e 40 mg tablet 04/17 completed Not Available Not Available Not Available metformin 500 mg tablet Two times a day 04/17 completed Not Available Not Available Not Available cetirizin e 10 mg tablet Take 1 tablet every day by oral route. 04/17 completed Not Available Not Available Not Available azithromy lea 250 mg tablet 04/17 completed Not Available Not Available Not Available lisinopri l 20 mg tablet Bedtime 10/13 completed Duration : 30 days;Arun quency: hs;Medic ation Descript ion: lisinopr il; Dosage:1 ; Route:or al; refills: 5; Quantity :30 tablet Not Available Not Available Not Available ondansetr on HCl 4 mg tablet active Not Available Not Available No t Available prednison e 20 mg tablet 04/17 completed Not Available Not Available Not Available glipizide ER 5 mg tablet, extended release 24 hr before breakfas t active Not Available Not Available No t Available lamotrigi ne 25 mg tablet 04/17 completed Not Available Not Available Not Available doxycycli ne monohydra te 50 mg tablet 10/13 completed Not Available Not Available Not Available Celexa 20 mg tablet Daily 10/13 completed Frequenc y: daily;Me dication Descript ion: citalopr am; Dosage:1 ; Route:or al; refills: 5; Quantity :30 tablet Not Available Not Available Not Available meclizine 25 mg tablet 04/17 completed Not Available Not Available Not Available doxycycli ne monohydra te 100 mg capsule 04/17 completed Not Available Not Available Not Available simvastat in 20 mg tablet Daily active Not Available Not Available Not Available metformin 1,000 mg tablet active Not Available Not Available Not Available lisinopri l 10 mg tablet 04/17 completed Not Available Not Available Not Available levothyro xine 150 mcg tablet 04/17 completed Not Available Not Available Not Available monteluka st 10 mg tablet active Not Available Not Available Not Available levothyro xine 200 mcg tablet Daily active Not Available Not Available Not Available aspirin 81 mg tablet Daily 10/13 completed Duration : 30 days;Arun quency: daily;Me dication Descript ion: aspirin; Dosage:1 ; refills: 0; Quantity :30 Not Available Not Available Not Available furosemid e 20 mg tablet Take 1 tablet every day by oral route. active Not Available Not Available No t Available metoprolo l succinate ER 25 mg tablet,ex tended release 24 hr active Not Available Not Available Not Available hydroxych loroquine 200 mg tablet As Directed 06/05 completed Not Available Not Available Not Available levofloxa lea 500 mg tablet 04/17 completed Not Available Not Available Not Available cefdinir 300 mg capsule 04/17 completed Not Available Not Available Not Available fluoxetin e 20 mg capsule once daily active Not Available Not Available No t Available lamotrigi ne 100 mg tablet active Not Available Not Available Not Available amoxicill in 875 mg-potass ium clavulana te 125 mg tablet 10/13 completed Not Available Not Available Not Available amoxicill in 500 mg-potass ium clavulana te 125 mg tablet 10/13 completed Not Available Not Available Not Available azithromy lea 500 mg tablet 04/17 completed Not Available Not Available Not Available bupropion HCl XL 150 mg 24 hr tablet, extended release 04/17 completed Not Available Not Available Not Available metoprolo l tartrate 25 mg tablet active Not Available Not Available Not Available Calcium-V itamin D Daily 10/13 completed Frequenc y: daily;Me dication Descript ion: calcium- vitamin D; Route:or al; refills: 0 Not Available Not Available Not Available Fish Oil 300 mg-1,000 mg capsule,d elayed release Daily 10/13 completed Frequenc y: daily;Me dication Descript ion: omega-3 polyunsa turated fatty acids; Dosage:a s directed ; Route:or al; refills: 0 Not Available Not Available Not Available Tradjenta 5 mg tablet active Not Available Not Available Not Available Vitals Date Recorded Body height Body weight Body mass index (BMI) Systolic blood pressure Diastolic blood pressure Provider Name and Address Organization Details Last Updated DateTime 10/13/2016 170.18 cm 55244.63 g 28.2 kg/m2 120 mm[Hg] 78 mm[Hg] Bess Whiting [facility] 7 13:10:44 Date Recorded Body height Body mass index (BMI) Body weight Heart rate Systolic blood pressure Diastolic blood pressure Provider Name and Address Organization Details Last Updated DateTime 9 170.18 cm 25.5 kg/m2 32506.5 6 g 63 /min 154 mm[Hg] 66 mm[Hg] Isaac Isaac Faye [facility] 9 10:02:20 Date Recorded Body height Body mass index (BMI) Body weight Respiratory rate Heart rate Systolic blood pressure Diastolic blood pressure Provider Name and Address Organization Details Last Updated DateTime 9 170.18 cm 25.8 kg/m2 94999.7 4 g 18 /min 68 /min 158 mm[Hg] 65 mm[Hg] Katie Ballard [facility] 9 15:48:33 Social History Question Answer Notes LastModified by Organizat ion Details LastModified Time Tobacco Smoking Status [facility]/13/2016 13:03:32 What Is Your Level Of Alcohol Consumption? Occasional Information not available 10/13/2016 What Is Your Level Of Caffeine Consumption? Moderate [email or web address] Information not available 10/13/2016 How Much Tobacco Do You Chew? None [email or web address] Information not available 06/05/2019 Do You Or Have You Ever Used E-cigarettes Or Vape? 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 06/05/2019 [email or web address] Information not available 06/05/2019 Do You Or Have You Ever Used Smokeless Tobacco? Never Used Smokeless Tobacco Information not available 04/17/2019 How Much Tobacco Do You Smoke? No Information not available 04/17/2019 How Many Years Have You Smoked Tobacco? 0 [email or web address] Information not available 06/05/2019 Sex: Unknown Functional Status None recorded. Mental Status None recorded. Family History Relationship Description Onset Age of this Age Resolved Age Notes LastModified by Organization Details LastModified Time Mother Hypertensive disorder [email or web address] Not available 2016 13:02:18 Mother Family history of stroke [email or web address] Not available 2016 13:02:35 Mother Arthritis Not available 04/17/2019 10:00:31 Sister Hypertensive disorder [email or web address] Not available 2016 13:02:18 Sister Heart disease Not available 2016 13:02:28 Sister Diabetes mellitus Not available 2016 13:02:52 Sister Obesity [email or web address] Not available 10/13/2016 13:03:09 Sister Disorder of thyroid gland [email or web address] Not available 2016 13:03:17 Father Family history of malignant neoplasm [email or web address] Not available 2016 13:02:41 Brother Diabetes mellitus [email or web address] Not available 2016 13:02:52 Brother Obesity Not availabl e 10/13/2016 13:03:09 Medical History No medical history recorded. Gynecological HistoryNo gynecological history recorded. Obstetrics History GPAL:G 0 P 0 0 0 0 Immunizations Vaccine Type Date Status Provider Name and Address Organization Details Recorded Time Influenza, split virus, quadrivalent, preservative 04/14/2019 [facility] 04/17/2019 10:00:05 Past Encounters Encounter ID Performer Location Encounter Start Date Encounter Closed Date Diagnosis/Indication Diagnosis SNOMED-CT Code Diagnosis ICD10 Code [id number] JONATHAN GARCIA MD NEUROLOGY JOSE CLOSED [address] [place] [id number] 10/13/2016 12:56:25 10/13/2016 14:12:45 Visual hallucinations 16633375 R44.1 Amnesia 37470749 R41.3 Formed vis ual hallucinations 216230081 R44.1 Transient memory loss 30 6479269 R41.3 Cerebral atrophy 2299079 00 G31.9 [id number] MEÑ[place] [address] [place] [address] 04/17/2019 09:43:59 04/18/2019 08:55:04 Degenerative joint disease involving multiple joints 206145797 M15.9 Muscle pain 85413304 M79 .10 [id number] MEÑO DEMPSEY MD [address] [place] [address] 06/05/2019 15:17:32 06/06/2019 09:57:40 Degenerative joint disease involving multiple joints 083858735 M15.9 Muscle pain 23428174 M79 .10 Primary Sj ??gren's syndrome 010141396 M35.00 Health Concerns Section Related Observation LastModified by Organization Detai ls LastModified Time None Recorded Concern Status LastModified by Organization Details LastModified Time None Recorded Advance Directives Directive None Recorded Payers Encounter Date Sequence Insurance Name Policy Number Policy Handy Covered Member ID Handy Member ID Guarantor Name 10/13/2016 1 [place] Sweetie L Amburgey [id number] 3 Sweetie L Amburgey 10/13/2016 2 [employer] - MEDICARE SELECT - PLAN F (MEDICARE SUPPLEMENT) Sweetie L Amburgey [id number] Sweetie L Amburgey 04/17/2019 1 [place] Sweetie L Amburgey [id number] Sweetie L Amburgey 04/17/2019 2 [employer] - MEDICARE SELECT - PLAN F (MEDICARE SUPPLEMENT) Sweetie L Amburgey [id number] Sweetie L Amburgey 06/05/2019 1 [place] Sweetie L Amburgey [id number] 3 Sweetie L Amburgey 06/05/2019 2 [employer] SUPPLEMENTAL - [employer]URANCE (MEDICARE SUPPLEMENT) PLAN G Sweetie L Amburgey [id number] Sweetie L Amburgey Notes Date Note Type Note Provider Name and Address Organization Details Recorded Time 10/13/2016 text/html 66 year old wocrystal n from [place] [facility] hallucination/memor y loss She has some memory trouble. She forgets names. She states she was talking to someone this week and about a mutual friend. She voices she went to rehearse that conversation later on and could not remember the person she was talking to. She states she has had episodes of visual hallucination. Brain MRI revealed; age related changes. No family history of memory impairment JONATHAN GARCIA MD [facility] [place], [address], [facility] 10/13/2016 22:55:39 04/17/2019 text/html New patient. Seen for evaluation of elevated ESR 55 mm/hr. In August 2018, she felt extreme weakness and felt unsteady and had falls. Evaluations during that time, including multiple studies, MRI examination but failed to show any real reasons for her weakness and falls. she had some thyroid dysfunction, and her thyroid medication dose was adjusted. she has chronic well controlled diabetes though at times goes up. Last A1C was at 8.3%. since the initial fall, she denies any recurrence of the falls. She is ambulating without support. She denies any headaches, jaw pain, double vision blurry vision. She does have pain and stiffness in the knee joints. Has classic gelling. Hematologic she has chronic diabetes but denies any significant numbness and tingling in her extremities. MEÑO DEMPSEY MD [address] [place] [address], [address], [facility] 04/17/2019 13:24:03 06/05/2019 text/html follow-up for osteoarthritis, muscle pain and primary Sjogren's. Denies any acute complaints. In fact her muscle pains are significantly improved or resolved. She is now here to discuss her lab studies as well as the x-rays. MEÑO DEMP[facility] [place] [place], [address], [facility] 06/05/2019 16:08:52 OBGyn Episode No OBEpisode recorded.
--- OUTSIDE RECORDS SUMMARY | 2024-05-08 07:28 | XMS_ITS | Clinical Summary ---
Author Organization [employer] Address [address] [place] [address] Care Team Providers Care Waiter/Waitress Bar Name Role Phone Jessie Fine MD Unavailable [phone] Allergies Active Allergy Reactions Criticality Noted Date Comments Bupropion 04/20/2022 Medications fLUoxetine (PROzac) 20 MG capsule Take 30 mg by mouth daily. 04/27/2022 Active glipiZIDE (GLUCOTROL XL) 10 MG 24 hr tablet Take 10 mg by mouth every morning. 03/21/2022 Active Basaglar KwikPen U-100 Insulin 100 unit/mL (3 mL) InPn Inject subcutaneous ly. 04/18/2022 Active lamoTRIgine (LaMICtal) 100 MG tablet Take 100 mg by mouth daily. 01/31/2022 Active levothyroxine (SYNTHROID, LEVOTHROID) 200 MCG tablet Take 200 mcg by mouth every morning. 02/06/2022 Active losartan (COZAAR) 100 MG tablet Take 100 mg by mouth daily. 04/28/2022 Active metFORMIN (GLUCOPHAGE) 1000 MG tablet SMARTSI Tablet(s) By Mouth Morning-Even ing 04/28/2022 Active metoprolol tartrate (LOPRESSOR) 25 MG tablet Take 25 mg by mouth daily. 04/28/2022 Active montelukast (SINGULAIR) 10 mg tablet SMARTSI Tablet(s) By Mouth Every Evening 04/28/2022 Active simvastatin (ZOCOR) 20 MG tablet SMARTSI Tablet(s) By Mouth Every Evening 04/28/2022 Active busPIRone (BUSPAR) 5 MG tablet Take 5 mg by mouth 3 (three) times daily. Active fluticasone-ume clidin-vilanter (Trelegy Ellipta) 100-62.5-25 mcg DsDv Inhale by mouth via inhaler. Active melatonin 10 mg Cap Take 20 mg by mouth. Active multivitamin per tablet Take 1 tablet by mouth daily. Active Family History Medical History Relation Name Comments Cancer Father Breast cancer Mother Cancer Mother Diabetes Mother Anxiety disorder Sister Relation Name Status Comments Father Mother Sister Social History Tobacco Use Types Packs/Day Years Used Date Smoking Tobacco: Former Cigarettes Q uit: 2013 Smokeless Tobacco: Never Alcohol Use Standard Drinks/Week Comments Never 0 (1 standard drink = 0.6 oz pur e alcohol) Interpersonal Safety Answer Date Record ed Family or friends hurt you Not on file 06/16 Family or friends insult you Not on file 03/2024 Family or friends threaten you Not on file 0 06/16/2023 Family or friends scream or curse at you Not on file 06/16/2023 Housing Stability Answer Date Recorded Living situation today Not on file Living situation problems Not on file 2023 Food Insecurity Answer Date Recorded Food run out past 12 months Not on file 06/07 Food did not last past 12 months Not on file 06/16/2023 Employment Answer Date Recorded Help finding and keeping a job Not on file 0 06/16/2023 Family and Community Support Answer Dominick e Recorded Help with Day to Day Activities Not on file 06/16/2023 Feeling Lonely or Isolated Not on file 06/16 Educational Attainment Answer Date Kt rded Speak language other than Georgian at home Not on file 06/16/2023 Want help with school or training Not on file 06/16/2023 Depression Answer Date Recorded PHQ-2 Risk Not on file 06/16/2023 Disabilities Answer Date Recorded Difficulty concentrating Not on file 024 Difficulty doing errands alone Not on file 0 06/16/2023 Substance Use Answer Date Recorded Used prescription meds for non-medical reasons N ot on file 06/16/2023 Used illegal drugs past 12 months Not on file 06/16/2023 Comments No Sex and Gender Information Value Date Recorded Sex Assigned at Not on file Legal Sex Female 7:26 AM CDT Gender Identity Not on file Sexual Orientation Not on file Occupation Industry Job Start Date 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 Not on file Not on file Not on file Last Filed Vital Signs Vital Sign Reading Time Taken Comments Blood Pressure 126/65 06/23/2022 11:07 AM EST Pulse 75 06/23/2022 11:07 AM EST Temperature 36.4 ??C (97.5 ??F) 06/23/2022 11:[address] Respiratory Rate 18 06/23/2022 11:07 AM EST Oxygen Saturation 95% 06/23/2022 11:07 AM EST Inhaled Oxygen Concentration - - Weight 74.4 kg (164 lb) 06/23/2022 11:07 AM EST Height 170.2 cm (5' 7 ) 05/04/2022 10:59 AM EST Body Mass Index 25.69 05/04/2022 10:59 AM EST Plan of Treatment Health Maintenance Due Date Last Done Comments DXA SCAN 1950 Depression Screening (12+) 1960 Hepatitis C Screening 01/16/1966 Shingles Vaccine (Zoster) (1 of 2) 01/16/1998 DTAP/TDAP/TD VACCINES (2 - Td or Tdap) 12/02/2009 Medicare Initial AWV [id number] 01/06/2014 Respiratory Syncytial Virus (RSV) Adult or (1 - 1-dose 75+ series) 01/16/2023 Falls Risk Screening 06/07/2023 Tobacco Cessation Counseling and Screening (12+) 06/23/2023 06/23/2022 COVID-19 VACCINE (3 - season) 02/06/202407/2020, 08/15/2020 Influenza Vaccine (#1) 2024 04/14/2019, 2018 Pneumococcal 65+ years Completed 04/07/2016, 2014 Insurance MEDICARE PART A B [facility] [place] SU[facility] Care Teams Waiter/Waitress Bar Relationship Specialty Start Date End Date Jessie Fine MD [address] [place] [address] Referring Physician Hematology and Oncology 10/16/22
--- OUTSIDE RECORDS SUMMARY | 2024-05-08 07:28 | XMS_ITS | Encounter Summary ---
Author Organization [facility] [employer] Address [address] [place] [address] Care Team Providers Care Supervisor Braiding Name Role Phone Unavailable Primary Care Provider Unavailabl e Encounter Details Date Type Department Care Team (Late st Contact Info) Description 09/28/2022 Orders Only [facility] - [address] [place] [address] [place] [address] [place] [phone] Pulmonary nodule (Primary Dx) Social History Tobacco Use Types [...] as of this encounter Visit Diagnoses Diagnosis Pulmonary nodule- Primary Other diseases of lung, not elsewhere classified documented in this encounter
--- OUTSIDE RECORDS SUMMARY | 2024-05-08 07:28 | XMS_ITS | Referral Summary ---
Author Organization [employer] Address [address] [place] [address] Care Team Providers Care Trimmer Machine Operator Name Role Phone Jessie Fine MD Unavailable [phone] Allergies Active Allergy Reactions Criticality Noted [...] Take 1 tablet by mouth daily. Active Social History Tobacco Use Types Packs/Day Years [...] Date Kt rded Speak language other than Argentine at home Not on file 06/16/2023 Want [...] 05/04/2022 10:59 AM EST Plan of Treatment Not on file Insurance MEDICARE PART A B [facility] Care Teams Trimmer Machine Operator Relationship Specialty Start Date End Date Jessie Fine MD [address] [place] [address] Referring Physician Hematology and Oncology 10/16/22
--- OUTSIDE RECORDS SUMMARY | 2024-05-08 07:28 | XMS_ITS | Encounter Summary ---
Author Organization [employer] Address [address] [place] [address] Care Team Providers Care Senior Principal Software Engineer Name Role Phone Unavailable Primary Care Provider Unavailabl e Reason for Visit * Reason Onset Date Comments APPT R/S 04/21/2022 PT CALLED TO R/S APPT [facility] 05/05/22 @ 2:00. Encounter Details Date Type Department Care Team (Late st Contact Info) Description 04/21/2022 Telephone [facility] - [address] [place] [address] Jessie Fien MD [address] [address] APPT R/S (PT CALLED TO R/S APPT FROM [facility] TO [facility] 05/05/22 @ 2:00.) Social History Tobacco Use Types Packs/Day Years [...] Miscellaneous Notes * Telephone Encounter - Karmen Mancera Viars - 04/21/2022 11:59 AM ESTSummary: APPT R/S PT CALLED TO R/S APPT FROM [facility] TO [facility] 05/05/22 @ 2:00. 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
--- NOTE | 2024-05-08 07:38 | PC.NURSE ---
05/08/24 Pt. is alert and orientated x 4. Pt. on 2-4 liters of oxygen overnight. Pt. congested and coughing a lot..Pt. c/o headache overnight and got medicated with Tylenol for headache. Pt. O2 sats seem to decrease after breathing treatments. Family at bedside. Pt. vital sings stable. Personal items and call christopher in reach.
[2024-05-08] MEDS: LEVOTHYROXINE 150MCG (0.15MG)TAB 150 MCG PO (08:06)
[2024-05-08] MEDS: lamoTRIgine 100MG TABLET 200 MG PO (08:06)
[2024-05-08] MEDS: ENOXAPARIN 40MG/0.4ML SYRINGE 40 MG SUBCUT (08:06)
[2024-05-08] MEDS: guaiFENesin 600 MG TAB.ER.12H PO ×2 (08:06→21:28)
[2024-05-08] MEDS: FLUOXETINE 20MG CAPSULE 40 MG PO (08:07)
[2024-05-08] MEDS: METOPROLOL TARTRATE 25MG TABLET 25 MG PO ×2 (08:07→21:28)
[2024-05-08] MEDS: predniSONE 20MG TAB 40 MG PO (08:07)
[2024-05-08] MEDS: IRBESARTAN 150MG TAB 150 MG PO ×2 (08:07→16:56)
--- NOTE | 2024-05-08 08:25 | PC.NURSE ---
pt o2 sat 86% on room air at rest. 2L nc applied. pt now satting 93% on 2L.
--- NOTE | 2024-05-08 09:32 | EXP.PULM.CON ---
History of Present Illness History of present illness: Ms. Hidalgo is a 74 year-old female presented with worsening respiratory distress and hypoxia needing increasing oxygen requirements and pulmonary was called for further evaluation and management. Patient admits progressively worsening respiratory distress along with worsening wheezing and productive phlegm. Around [id number] smoking history, last moved around 1993. Admits personal history of asthma. [facility] Disclaimer: The information contained in this section may have been updated after the patient was seen, as this information can be updated by other users. Medical History (Updated 05/08/24 @ 11:15 by Jonas Topete MD) Asthma exacerbation Anxiety Bipolar 1 disorder Hypertension History of mastoiditis Vertigo Diabetes Postsurgical fever Hypothyroidism Surgical History History of tubal ligation History of colonoscopy History of cholecystectomy Family History , DIAMOND CUTTER) COPD (chronic obstructive pulmonary disease) Cancer Hypertension Thyroid disorder Social History (Updated 05/06/24 @ 23:07 by Vijaya Downs RN) Smoking Status: Former smoker second hand exposure: Yes alcohol intake: never substance use type: marijuana current occupational status: retired Travel in the last 8 weeks: None household members: none housing: house 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 current occupational exposures/hazards: No caffeine: Yes Review of Systems Constitutional Constitutional: Reports anorexia, Reports body ache(s) and Reports fatigue Eyes Eyes: Denies eye discharge, Denies dry eyes, Denies irritation and Denies itchy eyes ENT Ears, Nose, Mouth, and Throat: Denies epistaxis, Denies facial pain, Denies lip swelling and Denies throat swelling *Cardiovascular Cardiovascular: Reports dyspnea and Reports dyspnea on exertion *Respiratory Respiratory: Reports change in phlegm color, Reports chest congestion, Reports cough, Reports dyspnea, Reports dyspnea on exertion, Reports excessive phlegm production and Reports wheezing *Gastrointestinal Gastrointestinal: Denies abdominal pain, Denies belching and Denies cramping *Musculoskeletal Musculoskeletal: Reports back pain, Reports myalgias and Reports other (No small joint swelling or Pain) *Neurologic Neurologic: Reports as per HPI Psychiatric Psychiatric: Denies homicidal ideation and Denies suicidal ideation Endocrine Endocrine: Reports fatigue and Denies heat intolerance Hematologic/Lymphatic Hematologic/Lymphatic: Denies easy bleeding and Denies lymphadenopathy Allergic/Immunologic Allergic/Immunologic: Denies itchy eyes, Denies lip swelling, Denies throat swelling and Reports wheezing Pulmonology Exam Inpatient Vital signs and Labs for Last 24 Hours: Temp Pulse Resp BP Pulse Ox O2 Del Method O2 Flow Rate 97.9 F 72 18 143/65 H 94 L Nasal Cannula 2 05/08/24 08:00 05/08/24 08:00 05/08/24 08:00 05/08/24 08:00 05/08/24 08:00 05/08/24 08:44 05/08/24 08:44 Laboratory Results - last 24 hr 05/07/24 05:50: HIV 1&2 Antibody Rapid Nonreactive 05/07/24 10:10: Lactate 4.0 H 05/07/24 10:35: POC Glucose 270 H 05/07/24 16:17: POC Glucose 325 H* 05/07/24 20:51: POC Glucose 228 H 05/08/24 06:18: POC Glucose 172 H 05/08/24 06:30: WBC 13.9 H D, RBC 3.92 L, Hgb 12.2, Hct 35.4 L, MCV 90.4, MCH 31.0, MCHC 34.3, RDW 14.1, Plt Count 149 D, MPV 7.2 L, Neut % (Auto) 71.2, Lymph % (Auto) 22.4, [place] % (Auto) 5.6, Eos % (Auto) 0.4, Baso % (Auto) 0.4, Neut # (Auto) 9.9 H, Lymph # (Auto) 3.1, [place] # (Auto) 0.8, Eos # (Auto) 0.1, Baso # (Auto) 0.1, Sodium 139, Potassium 3.8, Chloride 103, Carbon Dioxide 31 H, Anion Gap 8.8, BUN 15 D, Creatinine 0.80, Estimated Creat Clear 53, Estimated GFR 70, Est GFR ( Amer) 84, Glucose 168 H, Calcium 8.9, Magnesium 1.8, Total Bilirubin 0.4, AST 32, ALT 16 D, Alkaline Phosphatase 59, Total Protein 6.4, Albumin 3.6, Globulin 2.8, Albumin/Globulin Ratio 1.3 I & O for Labs for Last 24 Hours: Intake & Output 05/05/24 05/06/24 05/07/24 05/08/24 23:59 23:59 23:59 23:59 Intake Total 1350 / 1350 600 / 600 Output Total 0 / 0 700 / 700 Balance 1350 / 1350 -100 / -100 Weight 152 lb 11.2 oz 155 lb 155 lb 14.4 oz Constitutional: Present moderate distress Head: Present normocephalic and atraumatic ENT: Present normal exam, normal oropharynx and mucous membranes moist Neck: Present normal inspection and full ROM Respiratory: Present prolonged expiratory phase, respiratory distress, wheezes, diminished air movement and able to speak in complete sentences Cardiac: Present S1/S2, Tachycardia and radial pulses present GI: Present soft and distention; Absent tenderness or guarding Rectal (female): Present deferred (female): Present deferred Skin: Present intact; Absent cyanosis or jaundice Neuro: Present alert, awake and oriented x 3 Extremities: Present normal inspection; Absent clubbing or cyanosis Psychiatric: Present normal affect and cooperative Meds Home Medications and Allergies Home Medications ?Medication ?Instructions ?Recorded ?Confirmed ?Type montelukast 10 mg tablet 10 mg PO PM 11/16/18 05/06/24 History simvastatin 20 mg tablet 20 mg PO PM 11/16/18 05/06/24 History hydroxyzine pamoate 25 mg capsule 25 mg PO DAILYP PRN Anxiety 02/27/22 05/06/24 History losartan 100 mg tablet 100 mg PO DAILY 02/17/23 05/06/24 History fluoxetine 40 mg capsule 40 mg PO AM 04/25/24 05/06/24 History lamotrigine 200 mg tablet 200 mg PO AM 04/25/24 05/06/24 History levothyroxine 150 mcg tablet 150 mcg PO AM 04/25/24 05/06/24 History meclizine 25 mg tablet 25 mg PO TIDP PRN Vertigo 04/25/24 05/06/24 History ondansetron 4 mg disintegrating 4 mg PO Q6HP PRN Nausea And 04/25/24 05/06/24 History tablet Vomiting metoprolol tartrate 25 mg tablet 25 mg PO BID 30 days #60 tabs 04/26/24 05/06/24 Rx insulin degludec 200 unit/mL (3 30 unit SQ HS 05/07/24 05/07/24 History mL) subcutaneous pen (Tresiba FlexTouch U-200 insulin) New Prescriptions to Start Prescriptions: Allergies Allergy/AdvReac Type Severity Reaction Status Date / Time No Known Allergies Allergy Verified 02/17/23 09:40 Results Laboratory Findings 05/08/24 06:30 05/08/24 06:30 Abnormal lab findings: Abnormal Labs 05/06/24 05/06/24 05/06/24 18:12 18:25 18:40 WBC RBC Hct Plt Count 122 L MPV Neut % (Auto) Eos % (Auto) Neut # (Auto) VBG pH 7.46 H VBG pO2 112.5 H VBG Total CO2 28.1 H VBG O2 Saturation 98.3 H VBG Base Excess 3.2 H Potassium 3.3 L Carbon Dioxide Anion Gap BUN 5 L Glucose 175 H POC Glucose Lactate AST NT-Pro-B Natriuret Pep 770 H Globulin 3.3 H RSV (PCR) Detected A 05/07/24 05/07/24 05/07/24 04:10 05:50 06:54 WBC RBC 3.97 L Hct 35.3 L Plt Count 119 L MPV Neut % (Auto) 83.8 H Eos % (Auto) 0.0 L Neut # (Auto) VBG pH VBG pO2 VBG Total CO2 VBG O2 Saturation VBG Base Excess Potassium 3.3 L Carbon Dioxide Anion Gap 15.3 H BUN Glucose 314 H D POC Glucose 367 H* 270 H Lactate 4.1 H AST 39 H NT-Pro-B Natriuret Pep Globulin RSV (PCR) 05/07/24 05/07/24 05/07/24 10:10 10:35 16:17 WBC RBC Hct Plt Count MPV Neut % (Auto) Eos % (Auto) Neut # (Auto) VBG pH VBG pO2 VBG Total CO2 VBG O2 Saturation VBG Base Excess Potassium Carbon Dioxide Anion Gap BUN Glucose POC Glucose 270 H 325 H* Lactate 4.0 H AST NT-Pro-B Natriuret Pep Globulin RSV (PCR) 05/07/24 05/08/24 05/08/24 20:51 06:18 06:30 WBC 13.9 H D RBC 3.92 L Hct 35.4 L Plt Count MPV 7.2 L Neut % (Auto) Eos % (Auto) Neut # (Auto) 9.9 H VBG pH VBG pO2 VBG Total CO2 VBG O2 Saturation VBG Base Excess Potassium Carbon Dioxide 31 H Anion Gap BUN Glucose 168 H POC Glucose 228 H 172 H Lactate AST NT-Pro-B Natriuret Pep Globulin RSV (PCR) Assessment and Plan *Assessment and plan (1) Acute hypoxemic respiratory failure: Status: Acute Category: Medical Code(s): J96.01 - Acute respiratory failure with hypoxia (2) RSV (acute bronchiolitis due to respiratory syncytial virus): Status: Acute Category: Medical Code(s): J21.0 - Acute bronchiolitis due to respiratory syncytial virus (3) Asthma exacerbation: Status: Acute Category: Medical Code(s): J45.901 - Unspecified asthma with (acute) exacerbation Plan Ms. Hidalgo is a 74 year-old female presented with worsening respiratory distress and hypoxia needing increasing oxygen requirements and pulmonary was called for further evaluation and management. Patient admits progressively worsening respiratory distress along with worsening wheezing and productive phlegm. Around [id number] smoking history, last moved around 1993. Admits personal history of asthma. No evidence of significant leukocytosis upon admission, worsening, receiving high-dose steroids. Venous blood gas upon admission did not show any evidence of hypercarbic respiratory failure, pH of 7.46 with a pCO2 of 38.5. Respiratory alkalosis noted. Respiratory viral PCR positive for RSV. CTA chest on this admission personally reviewed, no evidence of pulmonary embolism. No significant emphysematous changes noted. Upper lobe groundglass and septal thickening concerning for volume overload. These findings were also noted on her CT from December 2023, slightly improved. No effusions noted. On initial examination patient appeared to be in moderate respiratory distress. Mild expiratory wheezing noted on auscultation. On 1 to 2 L saturation 90% and above. Not using any oxygen supplementation at baseline. Only using nebulization therapies second higher co-pay with inhaler therapy. Etiology of patient's current worsening respiratory status likely from her possible asthma exacerbation in setting of her RSV pneumonia. The noted upper lobe groundglass opacity and septal thickening are concerning and likely from diastolic heart failure/ILD. Will give Lasix 40 mg IV once today. Plan: -Initiate Advair 500 twice daily -Continue ceftriaxone azithromycin, can be weaned to cefdinir upon discharge to complete total of 5-day course -Continue prednisone 40 mg daily to complete a total of 5-day course -Lasix 40 mg IV once -Continue oxygen supplementation at 1 to 2 L to maintain O2 saturation goal of 90% and above -DuoNebs 4 times daily as needed -Patient noted to increasing oxygen supplementation during night. Will evaluate for sleep apnea as an outpatient basis. ABG on this admission did not show any evidence of hypercarbia # Thank you for involving pulmonary in this patient care. Will continue to follow.
--- NOTE | 2024-05-08 10:53 | P.CONCA_ITS ---
History of Present Illness History of Present Illness Consult date: 05/08/24 Requesting physician: Alfonso Mercado Consult reason: shortness of breath Chief complaint: SOA Additional Medical History:: 1. DM, treated for at least 10 yrs A. Hemoglobin A1c 6.2, 04/2024 2. Ex smoker, stopped in 1993 A. COPD 3. Hypertension A. Echocardiogram, 05-30 4. Hyperlipidemia A. LDL 75 in November 2019, on statin therapy 5. History of bipolar disorder History of present illness: This patient which I know well from her last admission.. Today got to where she could not breathing came to the emergency room finding out O2 saturations were as low as 84% on room air while walking. Patient placed up on oxygen breathing treatments that last and had a considerable period of time also given Solu- Medrol by the ER physician.. Patient has improved but on room air while talking lying in bed relaxing saturations will still drop to 87%. Patient noted that she has been around multiple people since her discharge from the hospital approximately 2 weeks ago, she noted no one has been particularly ill. Talk to her about exposure if she to had her flu and COVID shots which she has she thinks she has had a pneumonia shot a long time ago but is never had an RSV vaccine.. Patient is relaxed able to talk freely with oxygen on in the emergency room setting. But I do agree with the ER physician that she will need to be admitted due to the oxygen need. And to continue to evaluate for pulmonary toileting. I had already decided she need to be admitted when labs returned showing that she was positive for RSV. And I do agree after conferring with the ER provider that we must put her in and so she is being placed upon the second floor. The above per Dr. Mercado Cardiology consulted for elevated BNP and concern for CHF. Preliminary echo shows preserved EF. Pt states no prior history of ND or CHF. Occasional LE edema noted but not worrisome. [facility] Disclaimer: The information contained in this section may have been updated after the patient was seen, as this information can be updated by other users. Medical History (Updated 05/08/24 @ 11:15 by Jonas Topete MD) Asthma exacerbation Anxiety Bipolar 1 disorder Hypertension History of mastoiditis Vertigo Diabetes Postsurgical fever Hypothyroidism Surgical History History of tubal ligation History of colonoscopy History of cholecystectomy Family History , MEASUREMENT COORDINATOR) COPD (chronic obstructive pulmonary disease) Cancer Hypertension Thyroid disorder Social History (Updated 05/06/24 @ 23:07 by Vijaya Downs RN) Smoking Status: Former smoker second hand exposure: Yes alcohol intake: never substance use type: marijuana current occupational status: retired Travel in the last 8 weeks: None household members: none housing: house 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 current occupational exposures/hazards: No caffeine: Yes Review of Systems Review of Systems Review of systems:: pertinent systems reviewed and negative unless documented below *Cardiovascular Cardiovascular: Denies chest pain and Reports dyspnea *Respiratory Respiratory: Reports dyspnea *Neurologic Neurologic: Reports as per HPI Exam Data for Last 24 hours Vital signs and Labs for Last 24 Hours: Temp Pulse Resp BP Pulse Ox O2 Del Method O2 Flow Rate 97.9 F 72 18 143/65 H 94 L Nasal Cannula 2 05/08/24 08:00 05/08/24 08:00 05/08/24 08:00 05/08/24 08:00 05/08/24 08:00 05/08/24 10:42 05/08/24 10:42 Laboratory Results - last 24 hr 05/07/24 16:17: POC Glucose 325 H* 05/07/24 20:51: POC Glucose 228 H 05/08/24 06:18: POC Glucose 172 H 05/08/24 06:30: WBC 13.9 H D, RBC 3.92 L, Hgb 12.2, Hct 35.4 L, MCV 90.4, MCH 31.0, MCHC 34.3, RDW 14.1, Plt Count 149 D, MPV 7.2 L, Neut % (Auto) 71.2, Lymph % (Auto) 22.4, [place] % (Auto) 5.6, Eos % (Auto) 0.4, Baso % (Auto) 0.4, Neut # (Auto) 9.9 H, Lymph # (Auto) 3.1, [place] # (Auto) 0.8, Eos # (Auto) 0.1, Baso # (Auto) 0.1, Sodium 139, Potassium 3.8, Chloride 103, Carbon Dioxide 31 H, Anion Gap 8.8, BUN 15 D, Creatinine 0.80, Estimated Creat Clear 53, Estimated GFR 70, Est GFR ( Amer) 84, Glucose 168 H, Calcium 8.9, Magnesium 1.8, Total Bilirubin 0.4, AST 32, ALT 16 D, Alkaline Phosphatase 59, Total Protein 6.4, Albumin 3.6, Globulin 2.8, Albumin/Globulin Ratio 1.3 I & O for Last 24 hours: Intake & Output 05/05/24 05/06/24 05/07/24 05/08/24 11:59 11:59 11:59 11:59 Intake Total 510 / 510 1440 / 1440 Output Total 0 / 0 700 / 700 Balance 510 / 510 740 / 740 Weight 155 lb 155 lb 14.4 oz Constitutional Constitutional: mild distress *Routine Respiratory Exam Respiratory: Present rhonchi; Absent wheezes *Routine Cardiovascular Exam Cardiovascular: Present RRR; Absent murmur, gallop or rubs *Routine Extremities Exam Extremities: Absent edema *Routine Neurological Exam Neurological: Present alert, oriented X3 and CN II-XII intact Meds Home Medications and Allergies Home Medications ?Medication ?Instructions ?Recorded ?Confirmed ?Type montelukast 10 mg tablet 10 mg PO PM 11/16/18 05/06/24 History simvastatin 20 mg tablet 20 mg PO PM 11/16/18 05/06/24 History hydroxyzine pamoate 25 mg capsule 25 mg PO DAILYP PRN Anxiety 02/27/22 05/06/24 History losartan 100 mg tablet 100 mg PO DAILY 02/17/23 05/06/24 History fluoxetine 40 mg capsule 40 mg PO AM 04/25/24 05/06/24 History lamotrigine 200 mg tablet 200 mg PO AM 04/25/24 05/06/24 History levothyroxine 150 mcg tablet 150 mcg PO AM 04/25/24 05/06/24 History meclizine 25 mg tablet 25 mg PO TIDP PRN Vertigo 04/25/24 05/06/24 History ondansetron 4 mg disintegrating 4 mg PO Q6HP PRN Nausea And 04/25/24 05/06/24 History tablet Vomiting metoprolol tartrate 25 mg tablet 25 mg PO BID 30 days #60 tabs 04/26/24 05/06/24 Rx insulin degludec 200 unit/mL (3 30 unit SQ HS 05/07/24 05/07/24 History mL) subcutaneous pen (Tresiba FlexTouch U-200 insulin) New Prescriptions to Start Prescriptions: Allergies Allergy/AdvReac Type Severity Reaction Status Date / Time No Known Allergies Allergy Verified 02/17/23 09:40 Assessment and Plan *Assessment and plan (1) Acute hypoxemic respiratory failure: Status: Acute Category: Medical Code(s): J96.01 - Acute respiratory failure with hypoxia (2) Weakness generalized: Status: Acute Category: Medical Code(s): R53.1 - Weakness (3) Supplemental oxygen dependent: Status: Acute Category: Medical Code(s): Z99.81 - Dependence on supplemental oxygen (4) RSV (acute bronchiolitis due to respiratory syncytial virus): Status: Acute Category: Medical Code(s): J21.0 - Acute bronchiolitis due to respiratory syncytial virus (5) Hypertension: Status: Chronic Qualifiers: Hypertension type: primary hypertension Qualified Code(s): I10 - Essential (primary) hypertension Category: Medical Code(s): I10 - Essential (primary) hypertension (6) Diabetes: Status: Chronic Qualifiers: Diabetes mellitus complication status: with hyperglycemia Diabetes mellitus long-term insulin use: unspecified buttermaker helper insulin use status Diabetes mellitus type: type 2 Qualified Code(s): E11.65 - Type 2 diabetes mellitus with hyperglycemia Category: Medical Code(s): E11.9 - Type 2 diabetes mellitus without complications (7) Bipolar 1 disorder: Status: Acute Category: Medical Code(s): F31.9 - Bipolar disorder, unspecified (8) Ex-smoker for more than 1 year: Status: Acute Category: Social Hx Code(s): Z87.891 - Personal history of nicotine dependence Plan 1. RSV infection with acute hypoxemic resp failure -on supplemental oxygen -on antibiotics and prednisone 2. Elevated BNP -echo EF preserved -possible HFpEF due to pulmonary issues -Troponins normal -Patient is on metoprolol and Avapro (losartan at home) -Add spironolactone and as needed Lasix as well as Farxiga or Jardiance for GDMT treatment of suspected HFpEF 3. Ex smoker -COPD 4. Diabetes -per PCP -Hgb A1c 6.2 in April/2024 5. Possible liver cirrhosis on chest CTA, 04/24/2024 -LFTs normal Dose of Lasix today Start spironolactone 25 mg daily and Jardiance 10 mg daily for GDMT of HFpEF Follow-up in our office in 2 weeks for consideration of outpatient stress testing due to cardiac risk factors Home med recommendations: Metoprolol tartrate 25 mg BID spironolactone 25 mg daily jardiance 10 mg daily avapro 150 mg daily Lasix 40 mg daily PRN swelling Follow up in 2 wks.
--- NOTE | 2024-05-08 11:25 | HMH.PTEV ---
Physical Therapy Evaluation Rehab PT IP Evaluation Start: 05/08/24 08:54 Freq: ONCE Status: Active Protocol: Document 05/08/24 10:45 PHORNE (Rec: 05/08/24 11:25 PHORNE [id number]) Subjective/History History History Pt is a 74 yo female who presents to [facility] due to difficulty breathing. Pt states she lives in an apartment that is only 1 floor w/o stairs. She reports having a walker and cane at home, but mainly uses the walker for ambulation. She denies using O2 at home. Additionally, pt reports multiple falls recently but no serious injuries. Pt states she was previously independent w/ all ADLs and ambulation before admission to [facility]. Subjective Subjective Pt presents sitting in the bedside chair w/ family in the room this morning. Pt is alert and oriented x3 and consents to therapy services this date. Rehab PT IP Eval Objective Appearance Patient Behavior Appropriate,Cooperative Patient Orientation Person,Place,Birthday Difficulty following instructions none Speech Pattern Clear,Appropriate,Coherent Ambulation Patient Able to Ambulate Yes Ambulation Observation IP General Gait Pattern Observation Shuffling Step Ambulation Distance (feet) 30 Ambulation Assistive Device Rolling Walker Ambulation Ability Supervision/Stand by Balance Ability to Arise Able, uses arms to help Sitting Balance Steady, safe Standing Balance Steady, wide stance Dynamic Sitting Balance Ability Good Dynamic Standing Balance Ability Fair Transfers Sit to Stand Chair Transfer Ability Supervision/Stand by Rehab PT IP prob,goals,plan Problems Date of Evaluation: 05/08/24 PT IP Problems Gait,Balance Rehab Potential Rehab Potential Good Plan PT Intervention Plan Gait,Balance,Therapeutic Exercise PT Plan Frequency BID Duration LOS Discharge Goals Bed Transfer Ability Independent Sit to Stand Chair Transfer Ability Independent Ambulation Assistive Device Rolling Walker Ambulation Distance (feet) 60 Discharge Plan PT Discharge Plan Currently, pt is most appropriate for home health once medically stable for d/c. Pt demonstrates decreased step length ELIZA during ambulation. Pt demonstrates good static sitting and standing balance; however, due to pt's history of falls and gait observation, pt would benefit from improving her dynamic standing balance. Pt performed all therapeutic activities this date w/ O2 delivery via nasal cannula. Pt O2 was 92% at the conclusion of PT evaluation. PT services are indicated to increase endurance and balance to return to PLOF and reduce fall risk. Eval Complexity Eval Charge Codes 71277 - High Complexity PHYSICIAN CERTIFICATION: I certify the specified therapy services for [facility] are required, authorized, and reviewed every 30 days.
--- NOTE | 2024-05-08 11:28 | HMH.OTEV ---
OT Inpatient Evaluation Rehab OT IP Evaluation Start: 05/08/24 08:54 Freq: ONCE Status: Active Protocol: Document 05/08/24 11:21 [email or web address] (Rec: 05/08/24 11:28 ADALBERTOLAKIA [id number]) Rehab OT IP Assessment Subjective History This patient which I know well from her last admission.. Today got to where she could not breathing came to the emergency room finding out O2 saturations were as low as 84% on room air while walking. Patient placed up on oxygen breathing treatments that last and had a considerable period of time also given Solu- Medrol by the ER physician.. Patient has improved but on room air while talking lying in bed relaxing saturations will still drop to 87%. Patient noted that she has been around multiple people since her discharge from the hospital approximately 2 weeks ago, she noted no one has been particularly ill. Talk to her about exposure if she to had her flu and COVID shots which she has she thinks she has had a pneumonia shot a long time ago but is never had an RSV vaccine.. Patient is relaxed able to talk freely with oxygen on in the emergency room setting. But I do agree with the ER physician that she will need to be admitted due to the oxygen need. And to continue to evaluate for pulmonary toileting. I had already decided she need to be admitted when labs returned showing that she was positive for RSV. And I do agree after conferring with the ER provider that we must put her in and so she is being placed upon the second floor. Patient lives alone in 1 story apt on the first floor. Independent with ADLs prior. Family and friends lives close by. Hx of falling. no 02 at home. Subjective I can try to get up. Instructed Patient on proper hand and foot placement to complete bed mobility, transfers, fx'l mobility and LB drsg with SBA. No LOB noted . Family reported this was an improvement since last week where patient was unable to stand. Assisted Patient back to bed with needs met at end of session with needs met. Objective Patient Orientation Person,Place,Name,Age,Birthday Right Upper Extremity Gross ROM WNL Left Upper Extremity Gross ROM WNL Shoulder ROM Limitations Bony Restriction Bed Mobility bed mobility-scooting Assist Level Supervision/Stand by Transfer Training Sit/Stand/Pivot Transfer Assist Level Supervision/Stand by Chair Transfer Ability Supervision/Stand by Chair Transfer Technique Sit to/from Ambulatory Chair Transfer Assistive Devices Rolling Walker Rehab OT IP prob,goals,plan Problems Date of Evaluation: 05/08/24 OT IP Problems Bed Mobility,Transfers,Gait, Balance,Self care,Safety Rehab Potential Rehab Potential Good Equipment Needs Assistive Devices Rolling / Wheeled Walker Plan OT intervention Plan Bed Mobility,Transfers,Gait, Balance,Self care,Safety, Therapeutic Exercise OT Plan Frequency Daily Duration LOS Discharge Goals Bed Mobility Ability Independent Sit to Stand Chair Transfer Ability Independent Chair Transfer Ability Independent Chair Transfer Technique Sit to/from Ambulatory Lower Body Dressing Ability Independent Discharge Plan OT Discharge Plan Patient will continue to be seen here at [facility] in order to improve endurance, safety and fx'l mobility prior to returning home. REcommend services after medical d/c. Eval Complexity Eval Charge Codes 35810 - Low Complexity PHYSICIAN CERTIFICATION: I certify the specified therapy services for Sweetie Hidalgo are required, authorized, and reviewed every 30 days.
--- NOTE | 2024-05-08 11:48 | SW/DCPLANNER ---
Addendum entered by Mary Lloyd 05/09/24 13:40: [facility]/ [facility] stated that services will be resumed this week. Addendum entered by Mary [place] 05/09/24 11:12: Patient information/order has been faxed to [email or web address]. Per MD patient will discharge home today. Addendum entered by Mary Lloyd 05/08/24 11:53: Patient is agreeable to use [facility] if home O2 is needed at discharge. Original Note: I spoke w/ this patient regarding plans once medically stable for discharge. PT/OT evaluated patient and recommended returning home w/ home health services. Patient is currently established w/ [facility] and prefers to resume services. I will fax updated information to [facility]/ [email or web address] once patient is medically stable for discharge. Per MD patient will discharge home tomorrow pending no setbacks.
[2024-05-08] MEDS: SPIRONOLACTONE 25MG TABLET 25 MG PO (11:52)
[2024-05-08] MEDS: FUROSEMIDE 40MG/4ML VIAL 40 MG IV (11:52)
[2024-05-08] MEDS: MAGNESIUM SULFATE IN WATER 2 GM/50 ML PIGGYBACK IV (11:52)
[2024-05-08] MEDS: SODIUM CHLORIDE 3% 15ML NEB 3 ML IH (13:36)
--- NOTE | 2024-05-08 15:49 | PC.NURSE ---
pt has remained alert and oriented this shift. pt started shift on 4L nc. pt is now on 2L nc and satting 90% or above. pt has had no complaints throughout shift. pt has been ambulating to bathroom x1 assistance. pt is anticipated to be dc home tomorrow. pt had echocardiogram performed this morning. cardiology and pulmonolgy both saw pt today ( see their notes for further eval.). no new orders at this time. call light within reach.
--- NOTE | 2024-05-08 15:52 | P.PN_ITS ---
Subjective *Date: 05/08/24 *Time: 16:11 Interval history: He was quite weak today. Weaning oxygen as tolerated. Room air saturation of 86% at rest. No nausea or vomiting. Tolerating p.o. intake. Medical Exam Vital signs and Labs for Last 24 Hours: Vital Signs Temp Pulse Pulse Resp BP Pulse Ox O2 Del Method 05/08/24 15:00 Nasal Cannula 05/08/24 13:37 80 18 05/08/24 13:37 80 05/08/24 13:37 80 05/08/24 13:00 Nasal Cannula 05/08/24 12:00 98.2 F 64 18 142/67 H 91 L Room Air 05/08/24 10:42 Nasal Cannula 05/08/24 08:44 Nasal Cannula 05/08/24 08:00 Nasal Cannula 05/08/24 08:00 97.9 F 72 18 143/65 H 94 L Room Air 05/08/24 07:00 Nasal Cannula 05/08/24 06:02 89 05/08/24 06:02 97 H 05/08/24 06:02 93 L Nasal Cannula 05/08/24 05:00 Nasal Cannula 05/08/24 03:55 97.6 F 70 16 154/89 H 98 Nasal Cannula 05/08/24 03:00 Room Air 05/08/24 01:00 Nasal Cannula 05/08/24 00:00 99.0 F 72 14 152/77 H 96 Nasal Cannula 05/07/24 23:02 Nasal Cannula 05/07/24 23:02 88 05/07/24 23:01 87 05/07/24 23:00 Nasal Cannula 05/07/24 21:00 Nasal Cannula 05/07/24 20:00 Nasal Cannula 05/07/24 19:54 98.6 F 97 H 18 139/71 92 L Nasal Cannula 05/07/24 18:45 Nasal Cannula 05/07/24 16:58 Nasal Cannula 05/07/24 16:00 98.2 F 98 H 18 151/75 H 97 Nasal Cannula O2 Flow Rate 05/08/24 15:00 2 05/08/24 13:37 05/08/24 13:37 05/08/24 13:37 05/08/24 13:00 2 05/08/24 12:00 05/08/24 10:42 2 05/08/24 08:44 2 05/08/24 08:00 2 05/08/24 08:00 05/08/24 07:00 4 05/08/24 06:02 05/08/24 06:02 05/08/24 06:02 3 05/08/24 05:00 4 05/08/24 03:55 3 05/08/24 03:00 05/08/24 01:00 3 05/08/24 00:00 3 05/07/24 23:02 2 05/07/24 23:02 05/07/24 23:01 05/07/24 23:00 3 05/07/24 21:00 3 05/07/24 20:00 3 05/07/24 19:54 3 05/07/24 18:45 3 05/07/24 16:58 3 05/07/24 16:00 2 Intake and Output 05/07/24 05/08/24 05/08/24 23:59 07:59 15:59 Intake Total 480 / 1350 600 / 600 Output Total 0 / 700 700 / 700 Balance 480 / 1350 0 / -100 -100 / -100 Intake: Intake, Oral Amount 480 / 1350 600 / 600 Output: Output, Urine Amount 0 / 700 700 / 700 Other: Number of Unmeasured Voids 1 1 Number of Bowel Movements 1 Weight 70.715 kg Patient Weight 05/08/24 23:59 Weight 70.715 kg Laboratory Results - last 24 hr 05/07/24 16:17: POC Glucose 325 H* 05/07/24 20:51: POC Glucose 228 H 05/08/24 06:18: POC Glucose 172 H 05/08/24 06:30: WBC 13.9 H D, RBC 3.92 L, Hgb 12.2, Hct 35.4 L, MCV 90.4, MCH 31.0, MCHC 34.3, RDW 14.1, Plt Count 149 D, MPV 7.2 L, Neut % (Auto) 71.2, Lymph % (Auto) 22.4, [place] % (Auto) 5.6, Eos % (Auto) 0.4, Baso % (Auto) 0.4, Neut # (Auto) 9.9 H, Lymph # (Auto) 3.1, [place] # (Auto) 0.8, Eos # (Auto) 0.1, Baso # (Auto) 0.1, Sodium 139, Potassium 3.8, Chloride 103, Carbon Dioxide 31 H, Anion Gap 8.8, BUN 15 D, Creatinine 0.80, Estimated Creat Clear 53, Estimated GFR 70, Est GFR ( Amer) 84, Glucose 168 H, Calcium 8.9, Magnesium 1.8, Total Bilirubin 0.4, AST 32, ALT 16 D, Alkaline Phosphatase 59, Total Protein 6.4, Albumin 3.6, Globulin 2.8, Albumin/Globulin Ratio 1.3 I & O for Labs for Last 24 Hours: Intake & Output 05/05/24 05/06/24 05/07/24 05/08/24 23:59 23:59 23:59 23:59 Intake Total 1350 / 1350 600 / 600 Output Total 0 / 0 700 / 700 Balance 1350 / 1350 -100 / -100 Weight 69.264 kg 70.307 kg 70.715 kg Constitutional: Present no acute distress, average body habitus, chronically ill appearing and cooperative Head: Present atraumatic and normocephalic ENT: Present normal exam Respiratory: Present prolonged expiratory phase and wheezes (Diffuse); Absent respiratory distress, rhonchi or crackles Cardiac: Present Reg Rate and Rhythm GI: Present soft; Absent distention or tenderness Skin: Present intact; Absent cyanosis Neuro: Present Grossly Intact, alert, awake, oriented x 3 and moves all extremities Assessment and Plan *Assessment and plan (1) Acute hypoxemic respiratory failure: Status: Acute Category: Medical Code(s): J96.01 - Acute respiratory failure with hypoxia (2) RSV (acute bronchiolitis due to respiratory syncytial virus): Status: Acute Category: Medical Code(s): J21.0 - Acute bronchiolitis due to respiratory syncytial virus (3) Atypical pneumonia: Status: Acute Category: Medical Code(s): J18.9 - Pneumonia, unspecified organism (4) Supplemental oxygen dependent: Status: Acute Category: Medical Code(s): Z99.81 - Dependence on supplemental oxygen (5) Weakness generalized: Status: Acute Category: Medical Code(s): R53.1 - Weakness (6) Bipolar 1 disorder: Status: Acute Category: Medical Code(s): F31.9 - Bipolar disorder, unspecified Plan 74-year-old female with worsening functional decline, recently admitted for UTI and failure to thrive. Was discharged home with home health. Per to the ER with worsening shortness of breath. Found to have RSV and new oxygen requirement. Continues to require inpatient management. Weaning oxygen as tolerated. Anticipate discharge tomorrow. Problems addressed as follows: Acute hypoxemic respiratory failure RSV respiratory infection - Treating with azithromycin and ceftriaxone daily IV. - Discussed case with pulmonology, recommend initiating Advair 500 twice daily, wean antibiotics to cefdinir at discharge to complete 5 days total along with prednisone 40 mg for 5 days total. Will administer Lasix 40 mg IV once today for pulmonary edema component. -Continue supplemental oxygen as needed for goal sats greater 90%, wean to 2 L today -DuoNebs every 6 hours scheduled. -Respiratory panel positive for RSV Kidney function normal with BUN 15, creatinine 0.8. Potassium improved to 3.8, magnesium 1.8. Repeat CBC, CMP, magnesium ordered for the morning. Failure to thrive Frequent falls Vertigo/dizziness -Falls doing better since stopping trazodone after last admission. Still having some weakness however. Will discharge home with home health when stable to discharge. Bipolar 1: - has been on medication for quite some time; continue Prozac 40 mg daily - Continue Lamictal 200 mg daily Hypothyroid: TSH normal at 3.5 at last visit earlier this month. Continue l evothyroxine at 150 mcg daily hypertension: continue with metoprolol tartrate 25 mg daily and irbesartan formulary conversion 150 mg daily Diabetes: Continue Lantus 30 unit nightly; A1c earlier this month improved at 6.2. Sliding scale insulin with fingersticks ACHS; morning glucose 168 DNR Diabetic diet
--- NOTE | 2024-05-08 16:38 | PC.NURSE ---
Addendum entered by Chetna Villela RN 05/08/24 17:49: bp recheck was 147/72. no new orders at this time. call light within reach. Original Note: SRNA informed this nurse at 1600 vital signs that pt's blood pressure was elevated at 175/73. manual blood pressure was taken by this nurse and new blood pressure finding was 182/96. hospitalist (shanice) was called and made aware. ordered 150mg irbesartan PO now and upped pt morning dose from 150mg to 300mg. after med. administration, blood pressure will be checked to evaluate medication results. call light within reach.
[2024-05-08] MEDS: MONTELUKAST SODIUM 10MG TAB 10 MG PO (16:59)
[2024-05-08] MEDS: FLUTICASONE/SALMETEROL 500/50MCG DISKUS 1 PUFF IH (18:19)
[2024-05-08] MEDS: CEFTRIAXONE 1 GM 1 GM in 0.9 % SODIUM CHLORIDE 50 ML IV (21:29)
[2024-05-08 21:58] LABS: POC Glucose,Bedside 278 (70-110)
--- NOTE | 2024-05-08 22:22 | CA_ITS ---
APPROVED REPORT EXAM: Comprehensive 2D, Doppler, and color-flow Echocardiogram Custom Shoemaker: Lizzie Obrien RT(R) Ht: 5 ft 7 in Wt: 152lbs BSA: 1.80 BP: 157/67 mmHg Indications: RSV, resp distress, SOA, HTN, ex smoker, hyperlipidemia, DM 2D Dimensions Left Atrium 3.33 cm F: 2.7 - 3.8 LVEF (Montano's) 52.90 % F: 54 - 74 LVOT 1.86 cm (M/F) 1.5-2.5 LV Volume 77.00 mL F: 46 - 106 LV Volume Index 42.8 mL/m2 F: 29 - 61 LA Volume 30.50 mL LA Volume Index 16.94 mL/m2 (M/F) 16-34 EF AP4 49.50 % EF AP2 53.7 % EF BP 52.9 % GL Strain -17.8 % M-Mode Dimensions RVDd 2.38 cm (0.9-2.6) LVDd 3.91 cm (3.5-5.7) Ao Diam 2.83 cm (2.0-3.7) LVDs 2.53 cm (3.5-5.7) IVSd 0.91 cm (0.6-1.1) PWd 0.91 cm (0.6-1.1) EF (Teich) 65.30% FS 35.30% EDV (Teich) 66.30 mL ESV (Teich) 23.00 mL LV Diastology E Decel Time 175 (160-240 msec) E/A Ratio 0.8 MED E' 6.4 (>= 7 cm/sec) E'/MED E' Ratio 11.13 (<= 14) LAT E' 6.8 (>= 10 cm/sec) E/LAT E' Ratio 10.47 (<= 14) Mitral Valve MV E Max Reilly. 71.0 (40-130 cm/s) MV A Velocity 89.0 (40-130 cm/s) E/A Ratio 0.80 MV Decel. Time 175 (160-240 ms) Tricuspid Valve TR P. Velocity 301.00 cm/s RAP Estimate 10.00 mmHg RVSP 46.30 mmHg Left Ventricle The left ventricle is normal size. The left ventricular systolic function is normal. The left ventricular ejection fraction is within the normal range. There is increased LV wall thickness. There is normal LV segmental wall motion. Transmitral Doppler flow pattern suggests impaired LV relaxation. LVEF is 55%. Right Ventricle Right ventricle is mildly dilated. The right ventricular systolic function is normal. Atria The left atrium size is normal. The right atrium size is normal. There is no Doppler evidence of interatrial shunt. Aortic Valve The aortic valve is mildly thickened. There is no aortic valvular stenosis. Trace aortic regurgitation. Mitral Valve The mitral valve is mildly thickened. No evidence of mitral valve stenosis. Mild mitral regurgitation. Tricuspid Valve The tricuspid valve leaflets are thin and pliable. Mild tricuspid regurgitation. RVSP is 30-35 mmHg. Pulmonic Valve The pulmonary valve is normal in structure. Mild pulmonic regurgitation. Great Vessels The aortic root is normal in size. The ascending aorta is not well-visualized. IVC is normal in size and collapses >50% with inspiration. Pericardium There is no pericardial effusion. Other Information Study Quality: Fair Conclusion Normal biventricular systolic function. Mild LV dilation. Mild MR, mild TR, mild PI. Electronically signed by : Marilyn Griffiths MD 05/08/2024 12:07:02
[2024-05-09] VITALS: BP 122/52; PULSE 61; RESP 18; TEMP 36.6; O2SAT 94
[2024-05-09 04:00] VITALS: BP 130/56; PULSE 55; RESP 18; TEMP 36.4; O2SAT 95; BMI 23.5
--- NOTE | 2024-05-09 04:38 | PC.NURSE ---
05/09/24 Pt. is alert and orientated x 4. Pt. was admitted with Pneumonia and Positive RSV> . Pt. on 2 liters NC oxygen. Pt. gettting IV antibiotics. and resp Neb TX's. Pt. has a congested cough. Pt. is feeling a little better tonight. Pt's family at bedside overnight. Vital signs stable. Personal items and call christopher in reach.
[2024-05-09 05:11] LABS: HCV Ab Non Reactive (Non Reactive)
[2024-05-09] MEDS: FLUTICASONE/SALMETEROL 500/50MCG DISKUS 1 PUFF IH (06:28)
[2024-05-09] MEDS: LEVALBUTEROL 1.25MG/3ML NEB 1.25 MG IH ×2 (06:28→10:42)
[2024-05-09 06:29] VITALS: PULSE 82; PULSE 88; O2SAT 96
[2024-05-09 06:36] LABS: POC Glucose,Bedside 141 (70-110)
[2024-05-09 06:54] LABS: Albumin Level 3.7 g/dl (3.5-5.0); Chloride 100 mmol/L (98-107); Sodium 137 mmol/L (136-145)
[2024-05-09 06:57] LABS: Alanine Aminotransferase 15 U/L (12-78); Albumin/Globulin Ratio 1.3 (1.1-1.8); Alkaline Phosphatase 62 U/L (38-126); Aspartate Amino Transferase 30 U/L (14-36); Bilirubin,Total 0.4 mg/dl (0.2-1.3); Blood Urea Nitrogen 28 mg/dl (7-17); Carbon Dioxide 33 mmol/L (22.0-30.0); Creatinine Clearance Estimated 51 mL/min (50-200); Estimated Glomerular Filt Rate 61 ml/min (>60); GFR (African American) 74 ML/MIN (>60); Globulin 2.9 g/dL (1.3-3.2); Total Protein,Serum 6.6 g/dl (6.3-8.2)
[2024-05-09 06:58] LABS: Glucose 146 mg/dl (74-100)
[2024-05-09 07:06] LABS: Basophils # 0.1 K/mm3 (0-0.2); Basophils % 0.7 % (0.1-2.0); Eosinophils # 0.1 K/mm3 (0.0-0.4); Eosinophils % 0.6 % (0.1-12.0); Hematocrit 37.4 % (37.0-47.0); Hemoglobin 12.5 g/dL (12.2-16.2); Lymphocytes # 3.9 K/mm3 (0.7-4.5); Lymphocytes % 32.8 % (10-50); Mean Corpuscular HGB Conc 33.5 g/dL (31.8-35.4); Mean Corpuscular Hemoglobin 30.3 pg (27.0-31.2); Mean Corpuscular Volume 90.4 fl (81-99); Mean Platelet Volume 7.4 fl (7.4-10.4); Monocytes # 0.9 K/mm3 (0.1-1.0); Monocytes % 7.1 % (1.7-9.3); Neutrophils % 58.8 % (37.0-80.0); Platelet Count 167 K/mm3 (142-424); Red Blood Count 4.14 M/mm3 (4.20-5.40); Red Cell Distribution Width 14.4 % (11.5-17.5)
[2024-05-09 07:37] VITALS: BP 153/66; PULSE 66; RESP 18; TEMP 36.5; O2SAT 93
[2024-05-09 07:44] LABS: Magnesium 2.2 mg/dl (1.6-2.3)
[2024-05-09] MEDS: ENOXAPARIN 40MG/0.4ML SYRINGE 40 MG SUBCUT (08:04)
[2024-05-09] MEDS: LEVOTHYROXINE 150MCG (0.15MG)TAB 150 MCG PO (08:05)
[2024-05-09] MEDS: EMPAGLIFLOZIN 10MG TABLET 10 MG PO (08:05)
[2024-05-09] MEDS: lamoTRIgine 100MG TABLET 200 MG PO (08:05)
[2024-05-09] MEDS: METOPROLOL TARTRATE 25MG TABLET 25 MG PO (08:06)
[2024-05-09] MEDS: guaiFENesin 600 MG TAB.ER.12H PO (08:06)
[2024-05-09] MEDS: predniSONE 20MG TAB 40 MG PO (08:06)
[2024-05-09] MEDS: SPIRONOLACTONE 25MG TABLET 25 MG PO (08:06)
[2024-05-09] MEDS: FLUOXETINE 20MG CAPSULE 40 MG PO (08:06)
[2024-05-09] MEDS: IRBESARTAN 300MG TABLET 300 MG PO (08:06)
--- NOTE | 2024-05-09 09:35 | P.PN_ITS ---
Subjective *Date: 05/09/24 *Time: 12:57 Interval history: No acute respiratory events overnight. Patient admits continued improvement in her respiratory symptoms. Pulmonology Exam Inpatient Vital signs and Labs for Last 24 Hours: Temp Pulse Resp BP Pulse Ox O2 Del Method O2 Flow Rate 97.7 F 66 18 153/66 H 93 L Room Air 2 05/09/24 07:37 05/09/24 07:37 05/09/24 07:37 05/09/24 07:37 05/09/24 07:37 05/09/24 09:00 05/09/24 07:37 Laboratory Results - last 24 hr 05/07/24 05:50: Hepatitis C Antibody Non reactive 05/08/24 21:26: POC Glucose 278 H 05/09/24 06:09: WBC 12.0 H, RBC 4.14 L, Hgb 12.5, Hct 37.4, MCV 90.4, MCH 30.3, MCHC 33.5, RDW 14.4, Plt Count 167, MPV 7.4, Neut % (Auto) 58.8, Lymph % (Auto) 32.8, [place] % (Auto) 7.1, Eos % (Auto) 0.6, Baso % (Auto) 0.7, Neut # (Auto) 7.0, Lymph # (Auto) 3.9, [place] # (Auto) 0.9, Eos # (Auto) 0.1, Baso # (Auto) 0.1, Sodium 137, Potassium 4.0, Chloride 100, Carbon Dioxide 33 H, Anion Gap 8.0, BUN 28 H D, Creatinine 0.90, Estimated Creat Clear 51, Estimated GFR 61, Est GFR ( Amer) 74, Glucose 146 H, Calcium 9.0, Magnesium 2.2 D, Total Bilirubin 0.4, AST 30, ALT 15, Alkaline Phosphatase 62, Total Protein 6.6, Albumin 3.7, Globulin 2.9, Albumin/Globulin Ratio 1.3 05/09/24 06:24: POC Glucose 141 H Temp Pulse Resp BP Pulse Ox O2 Del Method O2 Flow Rate 97.9 F 72 18 143/65 H 94 L Nasal Cannula 2 05/08/24 08:00 05/08/24 08:00 05/08/24 08:00 05/08/24 08:00 05/08/24 08:00 05/08/24 08:44 05/08/24 08:44 Laboratory Results - last 24 hr 05/07/24 05:50: HIV 1&2 Antibody Rapid Nonreactive 05/07/24 10:10: Lactate 4.0 H 05/07/24 10:35: POC Glucose 270 H 05/07/24 16:17: POC Glucose 325 H* 05/07/24 20:51: POC Glucose 228 H 05/08/24 06:18: POC Glucose 172 H 05/08/24 06:30: WBC 13.9 H D, RBC 3.92 L, Hgb 12.2, Hct 35.4 L, MCV 90.4, MCH 31.0, MCHC 34.3, RDW 14.1, Plt Count 149 D, MPV 7.2 L, Neut % (Auto) 71.2, Lymph % (Auto) 22.4, [place] % (Auto) 5.6, Eos % (Auto) 0.4, Baso % (Auto) 0.4, Neut # (Auto) 9.9 H, Lymph # (Auto) 3.1, [place] # (Auto) 0.8, Eos # (Auto) 0.1, Baso # (Auto) 0.1, Sodium 139, Potassium 3.8, Chloride 103, Carbon Dioxide 31 H, Anion Gap 8.8, BUN 15 D, Creatinine 0.80, Estimated Creat Clear 53, Estimated GFR 70, Est GFR ( Amer) 84, Glucose 168 H, Calcium 8.9, Magnesium 1.8, Total Bilirubin 0.4, AST 32, ALT 16 D, Alkaline Phosphatase 59, Total Protein 6.4, Albumin 3.6, Globulin 2.8, Albumin/Globulin Ratio 1.3 I & O for Labs for Last 24 Hours: Intake & Output 05/06/24 05/07/24 05/08/24 05/09/24 23:59 23:59 23:59 23:59 Intake Total 1350 / 1350 1440 / 1440 420 / 420 Output Total 0 / 0 700 / 700 500 / 500 Balance 1350 / 1350 740 / 740 -80 / -80 Weight 152 lb 11.2 oz 155 lb 155 lb 14.4 oz 149 lb 14.4 oz Intake & Output 05/05/24 05/06/24 05/07/24 05/08/24 23:59 23:59 23:59 23:59 Intake Total 1350 / 1350 600 / 600 Output Total 0 / 0 700 / 700 Balance 1350 / 1350 -100 / -100 Weight 152 lb 11.2 oz 155 lb 155 lb 14.4 oz Constitutional: Present moderate distress Head: Present normocephalic and atraumatic ENT: Present normal exam, normal oropharynx and mucous membranes moist Neck: Present normal inspection and full ROM Respiratory: Present prolonged expiratory phase, respiratory distress, wheezes, diminished air movement and able to speak in complete sentences Cardiac: Present S1/S2, Tachycardia and radial pulses present GI: Present soft and distention; Absent tenderness or guarding Rectal (female): Present deferred (female): Present deferred Skin: Present intact; Absent cyanosis or jaundice Neuro: Present alert, awake and oriented x 3 Extremities: Present normal inspection; Absent clubbing or cyanosis Psychiatric: Present normal affect and cooperative Assessment and Plan *Assessment and plan (1) Acute hypoxemic respiratory failure: Status: Acute Category: Medical Code(s): J96.01 - Acute respiratory failure with hypoxia (2) RSV (acute bronchiolitis due to respiratory syncytial virus): Status: Acute Category: Medical Code(s): J21.0 - Acute bronchiolitis due to respiratory syncytial virus (3) Asthma exacerbation: Status: Acute Category: Medical Code(s): J45.901 - Unspecified asthma with (acute) exacerbation Plan Ms. Hidalgo is a 74 year-old female presented with worsening respiratory distress and hypoxia needing increasing oxygen requirements and pulmonary was called for further evaluation and management. Patient admits progressively worsening respiratory distress along with worsening wheezing and productive phlegm. Around [id number] smoking history, last moved around 1993. Admits personal history of asthma. No evidence of significant leukocytosis upon admission, worsening, receiving high-dose steroids. Venous blood gas upon admission did not show any evidence of hypercarbic respiratory failure, pH of 7.46 with a pCO2 of 38.5. Respiratory alkalosis not ed. Respiratory viral PCR positive for RSV. CTA chest on this admission personally reviewed, no evidence of pulmonary embolism. No significant emphysematous changes noted. Upper lobe groundglass a nd septal thickening concerning for volume overload. These findings were also noted on her CT from December 2023, slightly improved. No effusions noted. On initial examination patient appeared to be in moderate respiratory distress. Mild expiratory wheezing noted on auscultation. On 1 to 2 L saturation 90% and above. Not using any oxygen supplementation at baseline. Only using nebulization therapies second higher co-pay with inhaler therapy. Etiology of patient's current worsening respiratory status likely from her possible asthma exacerbation in setting of her RSV pneumonia. The noted upper lobe groundglass opacity and septal thickening are concerning and likely from diastolic heart failure/ILD. Interval update: No acute respiratory vents overnight. Received 1 dose of Lasix yesterday. Improving oxygen requirements. Echo showed normal EF with diastolic dysfunction. Plan: -Initiate Advair 500 twice daily -Continue ceftriaxone azithromycin, can be weaned to cefdinir upon discharge to complete total of 5-day course -Continue prednisone 40 mg daily to complete a total of 5-day course -Volume optimization as per primary team and cardiology. -Continue oxygen supplementation. On 2 L saturating 96%. Weaned to 1 L. Continue to wean as tolerated. -DuoNebs 4 times daily as needed -Patient noted to increasing oxygen supplementation during night. Will evaluate for sleep apnea as an outpatient basis. ABG on this admission did not show any evidence of hypercarbia # Thank you for involving pulmonary in this patient care. Will follow the patient in 1 to 2 weeks postdischarge.
[2024-05-09] MEDS: humaLOG 100 UNITS/ML 10ML VIAL (SSI) SUBCUT (11:07)
[2024-05-09 11:16] LABS: POC Glucose,Bedside 219 (70-110)
--- NOTE | 2024-05-09 11:17 | PC.NURSE ---
o2 room air sat dropped to 88%-90% while sitting in chair.
--- NOTE | 2024-05-09 11:35 | EXP.DC.SUM ---
General Admission date:: 05/06/24 HPI HPI HPI: This patient which I know well from her last admission.. Today got to where she could not breathing came to the emergency room finding out O2 saturations were as low as 84% on room air while walking. Patient placed up on oxygen breathing treatments that last and had a considerable period of time also given Solu-Medrol by the ER physician.. Patient has improved but on room air while talking lying in bed relaxing saturations will still drop to 87%. Patient noted that she has been around multiple people since her discharge from the hospital approximately 2 weeks ago, she noted no one has been particularly ill. Talk to her about exposure if she to had her flu and COVID shots which she has she thinks she has had a pneumonia shot a long time ago but is never had an RSV vaccine.. Patient is relaxed able to talk freely with oxygen on in the emergency room setting. But I do agree with the ER physician that she will need to be admitted due to the oxygen need. And to continue to evaluate for pulmonary toileting. I had already decided she need to be admitted when labs returned showing that she was positive for RSV. And I do agree after conferring with the ER provider that we must put her in and so she is being placed upon the second floor. Hospital Course Hospital Course Hospital Course: 74-year-old female with worsening functional decline, recently admitted for UTI and failure to thrive. Was discharged home with home health. Per to the ER with worsening shortness of breath. Found to have RSV and new oxygen requirement. Continues to require inpatient management. Weaning oxygen as tolerated. Anticipate discharge tomorrow. Problems addressed as follows: #Acute hypoxemic respiratory failure #RSV respiratory infection ? Clinically improved with ceftriaxone, azithromycin (for possible superimposed bacterial infection), steroids, breathing treatments, and starting Advair. ? Pulmonology consulted, assisted with care as above. ? Weaned to 2 L nasal cannula. Patient is saturating 88% on room air at rest. ? Discharged with cefdinir and prednisone for 3 more days, Advair. #HFpEF ? ECHO showed normal biventricular function. However, patient had pulmonary edema and elevated BNP with improved with diuresis. ? Discharged with Lasix 40 mg as needed, spironolactone 25 mg, Jardiance 10 mg. #Frequent falls #Vertigo/dizziness - Falls doing better since stopping trazodone after last admission. Will discharge home with home health when stable to discharge. Bipolar 1: - has been on medication for quite some time; continue Prozac 40 mg daily - Continue Lamictal 200 mg daily Hypothyroid: TSH normal at 3.5 at last visit earlier this month. Continue levothyroxine at 150 mcg daily Hypertension: continue with metoprolol tartrate 25 mg daily and irbesartan formulary conversion 150 mg daily Diabetes: Continue Lantus 30 unit nightly; A1c earlier this month improved at 6.2. Sliding scale insulin with fingersticks ACHS; morning glucose 168 Exam Data for Last 24 hours Vital signs and Labs for Last 24 Hours: Temp Pulse Resp BP Pulse Ox O2 Del Method O2 Flow Rate 97.7 F 66 18 153/66 H 93 L Room Air 2 05/09/24 07:37 05/09/24 07:37 05/09/24 07:37 05/09/24 07:37 05/09/24 07:37 05/09/24 11:00 05/09/24 07:37 Laboratory Results - last 24 hr 05/07/24 05:50: Hepatitis C Antibody Non reactive 05/08/24 21:26: POC Glucose 278 H 05/09/24 06:09: WBC 12.0 H, RBC 4.14 L, Hgb 12.5, Hct 37.4, MCV 90.4, MCH 30.3, MCHC 33.5, RDW 14.4, Plt Count 167, MPV 7.4, Neut % (Auto) 58.8, Lymph % (Auto) 32.8, [place] % (Auto) 7.1, Eos % (Auto) 0.6, Baso % (Auto) 0.7, Neut # (Auto) 7.0, Lymph # (Auto) 3.9, [place] # (Auto) 0.9, Eos # (Auto) 0.1, Baso # (Auto) 0.1, Sodium 137, Potassium 4.0, Chloride 100, Carbon Dioxide 33 H, Anion Gap 8.0, BUN 28 H D, Creatinine 0.90, Estimated Creat Clear 51, Estimated GFR 61, Est GFR ( Amer) 74, Glucose 146 H, Calcium 9.0, Magnesium 2.2 D, Total Bilirubin 0.4, AST 30, ALT 15, Alkaline Phosphatase 62, Total Protein 6.6, Albumin 3.7, Globulin 2.9, Albumin/Globulin Ratio 1.3 05/09/24 06:24: POC Glucose 141 H 05/09/24 11:03: POC Glucose 219 H I & O for Last 24 hours: Intake & Output 05/06/24 05/07/24 05/08/24 05/09/24 23:59 23:59 23:59 23:59 Intake Total 1350 / 1350 1440 / 1440 420 / 420 Output Total 0 / 0 700 / 700 500 / 500 Balance 1350 / 1350 740 / 740 -80 / -80 Weight 69.264 kg 70.307 kg 70.715 kg 67.993 kg Constitutional Constitutional: no acute distress *Routine HEENT Exam Head: Present normocephalic Eye: Present EOMI and PERRL ENT: Present mucous membranes moist *Routine Neck Exam Neck: Present supple; Absent lymphadenopathy *Routine Respiratory Exam Respiratory: Present CTA bilaterally *Routine Cardiovascular Exam Cardiovascular: Present RRR *Routine Abdominal Exam Abdominal: Present soft and normoactive bowel sounds; Absent tenderness *Routine Extremities Exam Extremities: Absent cyanosis, clubbing or edema *Routine Skin Exam Skin: Present warm; Absent rash *Routine Neurological Exam Neurological: Present alert and oriented X3 Results Data Completed and Pending Labs on day of discharge: Labs from last 24 hours 05/09/24 05/09/24 05/09/24 11:03 06:24 06:09 WBC 12.0 H RBC 4.14 L Hgb 12.5 Hct 37.4 MCV 90.4 MCH 30.3 MCHC 33.5 RDW 14.4 Plt Count 167 MPV 7.4 Neut % (Auto) 58.8 Lymph % (Auto) 32.8 [place] % (Auto) 7.1 Eos % (Auto) 0.6 Baso % (Auto) 0.7 Neut # (Auto) 7.0 Lymph # (Auto) 3.9 [place] # (Auto) 0.9 Eos # (Auto) 0.1 Baso # (Auto) 0.1 Sodium 137 Potassium 4.0 Chloride 100 Carbon Dioxide 33 H Anion Gap 8.0 BUN 28 H D Creatinine 0.90 Estimated Creat Clear 51 Estimated GFR 61 Est GFR ( Amer) 74 Glucose 146 H POC Glucose 219 H 141 H Calcium 9.0 Magnesium 2.2 D Total Bilirubin 0.4 AST 30 ALT 15 Alkaline Phosphatase 62 Total Protein 6.6 Albumin 3.7 Globulin 2.9 Albumin/Globulin Ratio 1.3 Hepatitis C Antibody 05/08/24 05/07/24 21:26 05:50 WBC RBC Hgb Hct MCV MCH MCHC RDW Plt Count MPV Neut % (Auto) Lymph % (Auto) [place] % (Auto) Eos % (Auto) Baso % (Auto) Neut # (Auto) Lymph # (Auto) [place] # (Auto) Eos # (Auto) Baso # (Auto) Sodium Potassium Chloride Carbon Dioxide Anion Gap BUN Creatinine Estimated Creat Clear Estimated GFR Est GFR ( Amer) Glucose POC Glucose 278 H Calcium Magnesium Total Bilirubin AST ALT Alkaline Phosphatase Total Protein Albumin Globulin Albumin/Globulin Ratio Hepatitis C Antibody Non reactive DS: Diagnosis Discharge Diagnosis (1) Acute hypoxemic respiratory failure: Status: Acute Code(s): J96.01 - Acute respiratory failure with hypoxia (2) RSV (acute bronchiolitis due to respiratory syncytial virus): Status: Acute Code(s): J21.0 - Acute bronchiolitis due to respiratory syncytial virus (3) Asthma exacerbation: Status: Acute Code(s): J45.901 - Unspecified asthma with (acute) exacerbation (4) Dyspnea: Status: Acute Code(s): R06.00 - Dyspnea, unspecified Meds Home Medications and Allergies Home Medications ?Medication ?Instructions ?Recorded ?Confirmed ?Type montelukast 10 mg tablet 10 mg PO PM 11/16/18 05/06/24 History simvastatin 20 mg tablet 20 mg PO PM 11/16/18 05/06/24 History hydroxyzine pamoate 25 mg capsule 25 mg PO DAILYP PRN Anxiety 02/27/22 05/06/24 History losartan 100 mg tablet 100 mg PO DAILY 02/17/23 05/06/24 History fluoxetine 40 mg capsule 40 mg PO AM 04/25/24 05/06/24 History lamotrigine 200 mg tablet 200 mg PO AM 04/25/24 05/06/24 History levothyroxine 150 mcg tablet 150 mcg PO AM 04/25/24 05/06/24 History meclizine 25 mg tablet 25 mg PO TIDP PRN Vertigo 04/25/24 05/06/24 History ondansetron 4 mg disintegrating 4 mg PO Q6HP PRN Nausea And 04/25/24 05/06/24 History tablet Vomiting metoprolol tartrate 25 mg tablet 25 mg PO BID 30 days #60 tabs 04/26/24 05/06/24 Rx insulin degludec 200 unit/mL (3 30 unit SQ HS 05/07/24 05/07/24 History mL) subcutaneous pen (Tresiba FlexTouch U-200 insulin) cefdinir 300 mg capsule 300 mg PO BID 3 days #6 caps 05/09/24 Rx empagliflozin 10 mg tablet 10 mg PO DAILY 30 days #30 tabs 05/09/24 Rx (Jardiance) fluticasone 500 mcg-salmeterol 50 1 inh inhalation BIDRT 30 days #60 05/09/24 Rx mcg/dose blistr powdr for ea inhalation (Advair Diskus) furosemide 40 mg tablet (Lasix) 40 mg PO DAILY PRN Leg edema #30 05/09/24 Rx tabs prednisone 20 mg tablet 40 mg (2 x 20 mg) PO DAILY 2 days 05/09/24 Rx #4 tabs spironolactone 25 mg tablet 25 mg PO DAILY 30 days #30 tabs 05/09/24 Rx New Prescriptions to Start Prescriptions: rejiir Nigel Herrera empagliflozin [Jardiance] Javier,Nigel fluticasone propion-salmeterol [Advair Diskus] Javier,Nigel furosemide [Lasix] Javier,Nigel prednisone Javier,Nigel spironolactone Nigel Herrera Allergies Allergy/AdvReac Type Severity Reaction Status Date / Time No Known Allergies Allergy Verified 02/17/23 09:40 Discharge Plan Disposition Patient Disposition: Home Health Service Discharge Order Discharge Orders: Discharge Order (Routine); Ordered 05/09/24 Ordered By: Nigel Herrera Follow up Plan Follow up with: Radha Tapia [Primary Care Provider] - 05/15/24 1:00 pm Darien Traylor PA [Physician Advertising Statistical Clerk] - 05/24/24 10:45 am Jonas Topete MD [Physician] - 05/16/24 1:00 pm Prescriptions/Medication Reconciliation: New prednisone 20 mg Tablet 40 mg PO DAILY 2 Days Qty: 4 0RF spironolactone 25 mg Tablet 25 mg PO DAILY 30 Days Qty: 30 0RF fluticasone propion-salmeterol [Advair Diskus] 500-50 mcg/dose Blister With Device 1 inh inhalation BIDRT 30 Days Qty: 60 0RF Jardiance 10 mg Tablet 10 mg PO DAILY 30 Days Qty: 30 0RF furosemide [Lasix] 40 mg tablet 40 mg PO DAILY PRN (Reason: Leg edema) Qty: 30 0RF cefdinir 300 mg capsule 300 mg PO BID 3 Days Qty: 6 0RF Continued losartan 100 mg tablet 100 mg PO DAILY simvastatin 20 MG tablet 20 mg PO PM montelukast 10 MG tablet 10 mg PO PM hydroxyzine pamoate 25 mg capsule 25 mg PO DAILYP PRN (Reason: Anxiety) Patient Comments: TAKE 1-2 CAPSULES (25-50 MG) BY MOUTH EVERY 6 HOURS NEEDED FOR ANXIETY OR INSOMNIA fluoxetine 40 mg capsule 40 mg PO AM Patient Comments: TAKE 1 CAPSULE BY MOUTH EVERY DAY IN THE MORNING levothyroxine 150 mcg tablet 150 mcg PO AM Patient Comments: TAKE 1 TABLET BY MOUTH EVERY DAY IN THE MORNING lamotrigine 200 mg tablet 200 mg PO AM Patient Comments: TAKE 1 TABLET EVERY DAY BY ORAL ROUTE IN THE MORNING. meclizine 25 mg tablet 25 mg PO TIDP PRN (Reason: Vertigo) Patient Comments: TAKE ONE TABLET BY MOUTH THREE TIMES DAILY NEEDED FOR vertigo ondansetron 4 mg tablet,disintegrating 4 mg PO Q6HP PRN (Reason: Nausea And Vomiting) Patient Comments: dissolve ONE tablet in MOUTH every SIX TO EIGHT hours as needed FOR nausea metoprolol tartrate 25 MG tablet 25 mg PO BID 30 Days Qty: 60 0RF insulin degludec [Tresiba FlexTouch U-200] 200 unit/mL (3 mL) insulin pen 30 unit SQ HS Patient Comments: TAKE 30 UNITS SUBCUTANEOUSLY EVERY NIGHT AT BEDTIME Problem Reconciliation Problems Reviewed?: Yes Patient Discharge Instructions Patient Instructions: DI for Respiratory Syncytial Virus -- Adults, DI for Atypical Pneumonia Print Language: Macedonian Providers Primary Care Provider: Radha Tapia Admit Provider: Alfonso Mercado Attending Provider: Alfonso Mercado
--- NOTE | 2024-05-11 10:37 | SW/DCPLANNER ---
Spoke with patient on the phone. Patient stated she is doing alot better. Patient stated that she is aware of her upcoming appointments and that she was able to get all of her medicine filled at the pharmacy before she left. Patient stated she has no concerns or questions at this time. Connor Estrella
== END 2024-05-09 14:12 | disposition home health service (06) | DRG 189 ==
LOC: ER 21:35 → 2ND 22:03
PROVIDERS: Nurse Practitioner Family; Admitting Provider Internal Medicine Adolescent Medicine; Emergency Provider Emergency Medicine; PCP Nurse Practitioner Family; Visit Provider Internal Medicine Adolescent Medicine
DX: J96.01 Acute respiratory failure with hypoxia (principal); J18.9 Pneumonia, unspecified organism; J21.0 Acute bronchiolitis due to respiratory syncytial virus; I50.30 Unspecified diastolic (congestive) heart failure; Z99.81 Dependence on supplemental oxygen; F31.9 Bipolar disorder, unspecified; E11.65 Type 2 diabetes mellitus with hyperglycemia; Z79.899 Other long term (current) drug therapy; Z79.4 Long term (current) use of insulin; R29.6 Repeated falls; E03.9 Hypothyroidism, unspecified; Z87.891 Personal history of nicotine dependence; E78.5 Hyperlipidemia, unspecified
CPT/HCPCS: 36415; 71046; 80053; 82803; 82962; 83605; 83735; 83880; 84484; 85025; 86803; 87389; 87633; 87636; 93005; 93306; 94640; 94760; 97163; 97165; 97530; 99285; J0456; J0696; J1650; J1940; J2405; J2919; J3475; J7050; J7613; J7614; J7620

== ENCOUNTER 2024-05-15 10:51 | Emergency (ER) | payer MEDICARE, OTHER, SELFPAY ==
[2024-05-15] VITALS (8 sets, daily range): BP systolic 137–179; BP diastolic 67–106; PULSE 64–76; RESP 16–18; TEMP 36.8; O2SAT 97–99; BMI 23.9
--- NOTE | 2024-05-15 10:50 | ECG_ITS ---
APPROVED REPORT Exam: Resting ECG HR:72 bpm ECG Measurements Heart Rate 72 AXES WY 170 P 83 QRSd 82 QRS -79 QT 416 T 64 QTc 440 Conclusion SINUS RHYTHM LEFT ANTERIOR FASCICULAR BLOCK [QRS AXIS <= -45, QR IN I, RS IN II] ABNORMAL ECG UNCONFIRMED REPORT Electronically signed by : Vinay Contreras, 05/15/2024 14:56:26
--- NOTE | 2024-05-15 11:01 | PC.NURSE ---
DR VILLALOBOS AT BEDSIDE
--- NOTE | 2024-05-15 11:04 | XR_ITS ---
FINAL REPORT CLINICAL HISTORY: SOB COMPARISON: 04/24/2024 FINDINGS: Two views of the chest were obtained. The heart size and pulmonary vascularity are within normal limits. The mediastinum is normal. Mild bronchial wall thickening is consistent with bronchitis. There is no pneumothorax. The bony thorax is intact. IMPRESSION: Bronchitis Reviewed, Interpreted and Dictated by Shabbir Goel III, MD Transcribed by Nela Lou Authenticated and [facility]
--- NOTE | 2024-05-15 11:05 | ED_ITS ---
Discharge Plan Disposition Patient Disposition: Home, Self-Care Prescriptions Prescriptions: New azithromycin 250 mg tablet See Rx Instructions .ROUTE .COMPLEX Qty: 6 0RF Rx Instructions: For 250 mg dose pack: take 500 mg today (day 1), then 250 mg for 4 days (days 2-5) No Action losartan 100 mg tablet 100 mg PO DAILY simvastatin 20 MG tablet 20 mg PO PM montelukast 10 MG tablet 10 mg PO PM hydroxyzine pamoate 25 mg capsule 25 mg PO DAILYP PRN (Reason: Anxiety) Patient Comments: TAKE 1-2 CAPSULES (25-50 MG) BY MOUTH EVERY 6 HOURS NEEDED FOR ANXIETY OR INSOMNIA fluoxetine 40 mg capsule 40 mg PO AM Patient Comments: TAKE 1 CAPSULE BY MOUTH EVERY DAY IN THE MORNING levothyroxine 150 mcg tablet 150 mcg PO AM Patient Comments: TAKE 1 TABLET BY MOUTH EVERY DAY IN THE MORNING lamotrigine 200 mg tablet 200 mg PO AM Patient Comments: TAKE 1 TABLET EVERY DAY BY ORAL ROUTE IN THE MORNING. meclizine 25 mg tablet 25 mg PO TIDP PRN (Reason: Vertigo) Patient Comments: TAKE ONE TABLET BY MOUTH THREE TIMES DAILY NEEDED FOR vertigo ondansetron 4 mg tablet,disintegrating 4 mg PO Q6HP PRN (Reason: Nausea And Vomiting) Patient Comments: dissolve ONE tablet in MOUTH every SIX TO EIGHT hours as needed FOR nausea metoprolol tartrate 25 MG tablet 25 mg PO BID 30 Days Qty: 60 0RF insulin degludec [Tresiba FlexTouch U-200] 200 unit/mL (3 mL) insulin pen 30 unit SQ HS Patient Comments: TAKE 30 UNITS SUBCUTANEOUSLY EVERY NIGHT AT BEDTIME prednisone 20 mg Tablet 40 mg PO DAILY 2 Days Qty: 4 0RF spironolactone 25 mg Tablet 25 mg PO DAILY 30 Days Qty: 30 0RF fluticasone propion-salmeterol [Advair Diskus] 500-50 mcg/dose Blister With Device 1 inh inhalation BIDRT 30 Days Qty: 60 0RF Jardiance 10 mg Tablet 10 mg PO DAILY 30 Days Qty: 30 0RF furosemide [Lasix] 40 mg tablet 40 mg PO DAILY PRN (Reason: Leg edema) Qty: 30 0RF cefdinir 300 mg capsule 300 mg PO BID 3 Days Qty: 6 0RF Referrals Follow up/Referrals: Radha Tapia [Primary Care Provider] - See instructions Activity Restrictions/Add. Instructions Additional Instructions/Restrictions: Take azithromycin for bronchitis. Use albuterol as needed at home. Follow-up with primary care doctor. Please return emerged part with any new, concerning, worsening symptoms Clinical Impressions Clinical Impression: Shortness of breath Print Language Print Language: Luxembourgish Discharge ED Provider: Vinay Contreras General Adult HPI General Chief complaint: Shortness of Breath/Dyspnea Stated complaint: SHORTNESS OF BREATH Time Seen by Provider: 05/15/24 10:54 Mode of Arrival: EMS Source of Information: Patient Limitations: No Limitations Description of Symptoms (Recalled from ER Triage Doc. by RN): pt c/o SOA, nonproductive cough, and weakness. pt was diagnosed with RSV here last week. She was d/c home with oxygen 2LNC. Pt states she has an appointment with pulmonology to see if the O2 can be d/c. pt is 97% on RA. History of Present Illness HPI narrative: This is a 74-year-old female with a past medical history of asthma, heart failure with preserved ejection fraction, bipolar 1 disorder, hypothyroidism, hypertension, diabetes who presents with shortness of breath. States that she was recently discharged from the hospital last Wednesday for hospitalization for acute hypoxic respiratory failure in the setting of RSV. States that she does not necessarily feel worse than she did at the point of discharge, however does not feel any better. Was discharged with home oxygen. States she had a fall yesterday with worsening shortness of breath since then. Lives alone however has a friend that lives directly above her that assist her and one of her children next-door. Denies history of blood clots. Related Data Home Medications ?Medication ?Instructions ?Recorded ?Confirmed montelukast 10 mg tablet 10 mg PO PM 11/16/18 05/06/24 simvastatin 20 mg tablet 20 mg PO PM 11/16/18 05/06/24 hydroxyzine pamoate 25 mg capsule 25 mg PO DAILYP PRN Anxiety 02/27/22 05/06/24 losartan 100 mg tablet 100 mg PO DAILY 02/17/23 05/06/24 fluoxetine 40 mg capsule 40 mg PO AM 04/25/24 05/06/24 lamotrigine 200 mg tablet 200 mg PO AM 04/25/24 05/06/24 levothyroxine 150 mcg tablet 150 mcg PO AM 04/25/24 05/06/24 meclizine 25 mg tablet 25 mg PO TIDP PRN Vertigo 04/25/24 05/06/24 ondansetron 4 mg disintegrating 4 mg PO Q6HP PRN Nausea And 04/25/24 05/06/24 tablet Vomiting insulin degludec 200 unit/mL (3 30 unit SQ HS 05/07/24 05/07/24 mL) subcutaneous pen (Tresiba FlexTouch U-200 insulin) Previous Rx's ?Medication ?Instructions ?Recorded metoprolol tartrate 25 mg tablet 25 mg PO BID 30 days #60 tabs 04/26/24 cefdinir 300 mg capsule 300 mg PO BID 3 days #6 caps 05/09/24 empagliflozin 10 mg tablet 10 mg PO DAILY 30 days #30 tabs 05/09/24 (Jardiance) fluticasone 500 mcg-salmeterol 50 1 inh inhalation BIDRT 30 days #60 05/09/24 mcg/dose blistr powdr for ea inhalation (Advair Diskus) furosemide 40 mg tablet (Lasix) 40 mg PO DAILY PRN Leg edema #30 05/09/24 tabs prednisone 20 mg tablet 40 mg (2 x 20 mg) PO DAILY 2 days 05/09/24 #4 tabs spironolactone 25 mg tablet 25 mg PO DAILY 30 days #30 tabs 05/09/24 azithromycin 250 mg tablet See Rx Instructions PO .COMPLEX #6 05/15/24 tabs Allergies Allergy/AdvReac Type Severity Reaction Status Date / Time No Known Allergies Allergy Verified 02/17/23 09:40 [facility] Disclaimer: The information contained in this section may have been updated after the patient was seen, as this information can be updated by other users. Medical History (Updated 05/15/24 @ 13:28 by Vinay Contreras MD) Vertigo Dizziness Acute UTI Asthma exacerbation Anxiety Bipolar 1 disorder Hypertension History of mastoiditis Vertigo Diabetes Postsurgical fever Hypothyroidism Surgical History History of tubal ligation History of colonoscopy History of cholecystectomy Family History , STUDENT [employer]ISTRI[employer]) COPD (chronic obstructive pulmonary disease) Cancer Hypertension Thyroid disorder Social History (Updated 05/06/24 @ 23:07 by Vijaya Downs RN) Smoking Status: Never smoker second hand exposure: Yes alcohol intake: never substance use type: marijuana current occupational status: retired Travel in the last 8 weeks: None household members: none housing: house 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 current occupational exposures/hazards: No caffeine: Yes Other Medical History Have you received the Flu Vaccine for this season: No Have you received the Pneumonia Vaccine: No ROS Obtained: Yes All systems reviewed & no additional complaints except as documented Physical Exam General General appearance: alert and in no apparent distress Comment: Chronically ill Eye Eye exam: Present normal appearance, PERRL and EOMI Respiratory Respiratory exam: Present normal lung sounds bilaterally; Absent respiratory distress Cardiovascular Cardiovascular exam: Present regular rate and normal rhythm Abdominal Exam Abdominal exam: Present soft and distention; Absent tenderness, guarding or rebound Extremities Exam Extremities exam: Present normal inspection Neurological Exam Neurological exam: Present alert and oriented X3 Skin Skin exam: Present warm and dry Medical Decision Making Medical Records Medical records reviewed: Yes I reviewed the patient's medical records. Screening: Per USPSTF and CDC recommendations, given the prevalence of disease in our region, it is our hospital?s policy to screen for HIV and viral Hepatitis for all patients aged 18 and over and those with ongoing risk factors. MR Comment: Reviewed discharge summary from 05/09/2024 notable for admission with acute hypoxic respiratory failure secondary to RSV. Saturating 88% at rest on room air and discharged with home oxygen, prednisone, and cefdinir. Patient discharged with home health. Binu Inquiry Pt receiving controlled substance: No Vital Signs: 05/15/24 10:57 05/15/24 11:00 05/15/24 11:30 Temperature 98.2 F Temperature Source Oral Pulse Rate 76 70 Pulse Rate [Left] 75 Respiratory Rate 16 Blood Pressure 151/83 H 149/78 H Blood Pressure [Right Arm] 140/106 H Blood Pressure Mean 104 Blood Pressure Mean [Right Arm] 117 Blood Pressure Source Blood Pressure Source [Right Arm] Automatic Cuff Blood Pressure Position Blood Pressure Position [Right Arm] Sitting 02 Sat by Pulse Oximetry 97 97 97 Oxygen Delivery Method Room Air Room Air Room Air Oxygen Flow Rate (LPM) 05/15/24 11:59 05/15/24 12:01 05/15/24 12:30 Temperature Temperature Source Pulse Rate 68 66 64 Pulse Rate [Left] Respiratory Rate Blood Pressure 149/78 H 179/67 H 165/68 H Blood Pressure [Right Arm] Blood Pressure Mean 104 100 Blood Pressure Mean [Right Arm] Blood Pressure Source Blood Pressure Source [Right Arm] Blood Pressure Position Blood Pressure Position [Right Arm] 02 Sat by Pulse Oximetry 97 99 97 Oxygen Delivery Method Oxygen Flow Rate (LPM) 05/15/24 13:01 05/15/24 13:30 Temperature 98.2 F Temperature Source Oral Pulse Rate 65 68 Pulse Rate [Left] Respiratory Rate 18 Blood Pressure 137/73 160/87 H Blood Pressure [Right Arm] Blood Pressure Mean 94 Blood Pressure Mean [Right Arm] Blood Pressure Source Automatic Cuff Blood Pressure Source [Right Arm] Blood Pressure Position Sitting Blood Pressure Position [Right Arm] 02 Sat by Pulse Oximetry 97 Oxygen Delivery Method Nasal Cannula Oxygen Flow Rate (LPM) 2 Lab Data Lab Results 05/15/24 11:00: WBC 11.6 H, RBC 4.56, Hgb 13.7, Hct 40.8, MCV 89.4, MCH 30.1, MCHC 33.6, RDW 13.9, Plt Count 222, MPV 7.2 L, Neut % (Auto) 66.4, Lymph % (Auto) 24.1, Shannon % (Auto) 6.8, Eos % (Auto) 1.8, Baso % (Auto) 0.8, Neut # (Auto) 7.7, Lymph # (Auto) 2.8, Shannon # (Auto) 0.8, Eos # (Auto) 0.2, Baso # (Auto) 0.1, D-Dimer 1.14 H, Sodium 137, Potassium 3.5, Chloride 102, Carbon Dioxide 27, Anion Gap 11.5, BUN 22 H, Creatinine 0.90, Estimated Creat Clear 52, Estimated GFR 61, Est GFR ( Amer) 74, Glucose 146 H, Calcium 9.4, Total Bilirubin 0.9, AST 32, ALT 19, Alkaline Phosphatase 67, Troponin I < 0.01, NT-Pro-B Natriuret Pep 299, Total Protein 6.8, Albumin 4.0, Globulin 2.8, Albumin/Globulin Ratio 1.4 05/15/24 11:03: VBG pH 7.58 H, VBG pCO2 29.1 L, VBG pO2 53.2 H, VBG HCO3 26.8, V BG Total CO2 27.7 H, VBG O2 Saturation 91.2 H, VBG Base Excess 4.9 H, VBG Lactic Acid 2.0 05/15/24 11:00 05/15/24 11:00 Orders (Tests/Meds): ED MEDICATIONS Discontinued Medications Generic Name Dose Route Start Last Admin Trade Name Trung PRN Reason Stop Dose Admin Iopamidol 70 ml 05/15/24 12:04 05/15/24 12:05 Iopamidol-370 (76%);100ml Bottle IV 05/15/24 12:05 70 ml ONCE ONE Administration Sodium Chloride 50 ml 05/15/24 12:04 05/15/24 12:05 0.9 % Sodium Chloride 50 Ml Vial IV 05/15/24 12:05 50 ml ONCE ONE Administration ORDERS Category Date Time Status CTA Chest [CT angio chest PE protocol] Stat Cat Scan 05/15/24 11:33 Completed Chest XR 2 view (NOT portable) [XR chest 2V] Stat Exams 05/15/24 11:04 Completed BNP [NT Pro Brain Natriuretic Pep.] Stat Lab 05/15/24 11:00 Completed CBC w/Auto Diff [Complete Blood Count Auto Diff] Stat Lab 05/15/24 11:00 Completed CMP [Comprehensive Metabolic Panel] Stat Lab 05/15/24 11:00 Completed D-Dimer Stat Lab 05/15/24 11:00 Completed Troponin I Stat Lab 05/15/24 11:00 Completed VBG [Venous Blood Gas] Stat RT 05/15/24 11:03 Completed ECG Data Tracing #1: I reviewed this ECG and interpreted as documented below: Normal sinus rhythm at a rate of 72, QTc 440, normal axis, no STEMI Medical Decision Narrative: In summary, this 74-year-old female with a history of asthma, heart failure with preserved ejection fraction, frequent falls, bipolar 1 disorder, hypothyroidism, hypertension, diabetes, recent hospitalization for RSV infection and acute hypoxic respiratory failure presents to the emergency department today with shortness of breath. On initial evaluation patient is afebrile, chronically ill- appearing, no acute distress, nontachycardic, normotensive, satting 96% on room air. Differential diagnosis includes but is not limited to asthma exacerbation, heart failure exacerbation, pneumonia, PE. Based on these concerns, I ordered CBC, CMP, VBG, D-dimer, troponin, EKG, chest x-ray. ECG personally interpreted as noted above. Labs personally reviewed demonstrate undetectable troponin, downtrending white blood cell count at 11 from 12 6 days ago, positive D-dimer at 1.14, respiratory alkalosis with venous pH of 7.58 and pCO2 29, unremarkable CMP. XR personally interpreted demonstrates no acute cardiopulmonary pathology. Radiology reports possible bronchitis. CT imaging personally interpreted demonstrates no acute pulmonary embolism. On reassessment in stable condition and in no acute distress. On 2 L nasal cannula which she was using at home. Appropriate for discharge at this time, however hospitalization was considered. Does not have any worsening respiratory failure and is appropriate for outpatient follow-up. Critical Care Critical Care Time Critical Care Time: No
[2024-05-15 11:10] LABS: VBG Base Excess 4.9 mmol/L (-2.4-2.3); VBG HCO3 26.8 mmol/L (23-30); VBG Oxygen Saturation 91.2 % (50-70); VBG PCO2 29.1 mmol/L (35-51); VBG PO2 53.2 mmol/L (28-40); VBG Total CO2 27.7 mmol/L (23-27)
[2024-05-15 11:12] LABS: VBG PH 7.58 mmol/L (7.31-7.41)
[2024-05-15 11:18] LABS: Basophils # 0.1 K/mm3 (0-0.2); Basophils % 0.8 % (0.1-2.0); Eosinophils # 0.2 K/mm3 (0.0-0.4); Eosinophils % 1.8 % (0.1-12.0); Hematocrit 40.8 % (37.0-47.0); Hemoglobin 13.7 g/dL (12.2-16.2); Lymphocytes # 2.8 K/mm3 (0.7-4.5); Lymphocytes % 24.1 % (10-50); Mean Corpuscular HGB Conc 33.6 g/dL (31.8-35.4); Mean Corpuscular Hemoglobin 30.1 pg (27.0-31.2); Mean Corpuscular Volume 89.4 fl (81-99); Mean Platelet Volume 7.2 fl (7.4-10.4); Monocytes # 0.8 K/mm3 (0.1-1.0); Monocytes % 6.8 % (1.7-9.3); Neutrophils # 7.7 K/mm3 (1.8-7.8); Neutrophils % 66.4 % (37.0-80.0); Platelet Count 222 K/mm3 (142-424); Red Blood Count 4.56 M/mm3 (4.20-5.40); Red Cell Distribution Width 13.9 % (11.5-17.5); White Blood Count 11.6 K/mm3 (4.8-10.8)
[2024-05-15 11:23] LABS: Alanine Aminotransferase 19 U/L (12-78); Albumin/Globulin Ratio 1.4 (1.1-1.8); Alkaline Phosphatase 67 U/L (38-126); Anion Gap 11.5 mEq/L (5-15); Aspartate Amino Transferase 32 U/L (14-36); Bilirubin,Total 0.9 mg/dl (0.2-1.3); Blood Urea Nitrogen 22 mg/dl (7-17); Calcium 9.4 mg/dl (8.4-10.2); Carbon Dioxide 27 mmol/L (22.0-30.0); Chloride 102 mmol/L (98-107); Creatinine Clearance Estimated 52 mL/min (50-200); Estimated Glomerular Filt Rate 61 ml/min (>60); GFR (African American) 74 ML/MIN (>60); Globulin 2.8 g/dL (1.3-3.2); Glucose 146 mg/dl (74-100); Potassium 3.5 mmoL/L (3.5-5.1); Sodium 137 mmol/L (136-145); Total Protein,Serum 6.8 g/dl (6.3-8.2)
[2024-05-15 11:28] LABS: D-Dimer 1.14 ug/mL (0.0-0.5)
--- NOTE | 2024-05-15 11:33 | CT_ITS ---
FINAL REPORT TECHNIQUE: Then section axial CT images of the chest were obtained with contrast. Three-D reformatted images were also obtained.This study was performed with techniques to keep radiation doses as low as reasonably achievable (ALARA). Individualized dose reduction techniques using automated exposure control or adjustment of mA and/or kV according to the patient''s size were employed. CLINICAL HISTORY: + D dimer COMPARISON: 04/24/2024 FINDINGS: There is no evidence of pulmonary embolism. There is no evidence of thoracic aortic aneurysm or dissection. There is no evidence of mediastinal or hilar mass or adenopathy. There is borderline enlargement of the ascending aorta measuring 41 mm, stable. There is no evidence of pulmonary mass or suspicious nodule. Mild scarring is noted. No localized inflammatory process is seen within the lungs. Limited images of the upper abdomen demonstrate irregularity of the hepatic contour, cirrhosis not excluded. IMPRESSION: No evidence of pulmonary embolism. Stable borderline enlargement of ascending aorta. Irregular hepatic contour, cirrhosis not excluded. Reviewed, Interpreted and Dictated by Shabbir Goel III, MD Transcribed by Nela Lou Authenticated and [facility]
[2024-05-15 11:36] LABS: NT Pro Brain Natriuretic Pep. 299 pg/mL (0-450)
[2024-05-15 11:38] LABS: Troponin I < 0.01 ng/ml (0.00-0.034)
[2024-05-15] MEDS: 0.9 % SODIUM CHLORIDE 50 ML VIAL IV (12:05)
[2024-05-15] MEDS: IOPAMIDOL-370 (76%);100ML BOTTLE 70 ML IV (12:05)
== END 2024-05-15 13:30 | disposition home or self-care (01) ==
PROVIDERS: Emergency Provider Student in an Organized Health Care Education/Training Program; PCP Nurse Practitioner Family
DX: R06.02 Shortness of breath (principal); R05.8 Other specified cough; R53.1 Weakness
CPT/HCPCS: 71046; 71275; 80053; 82803; 83880; 84484; 85025; 85378; 93005; 99285; Q9967

== ENCOUNTER 2024-05-21 19:46 | Emergency (ER) | payer MEDICARE, OTHER, SELFPAY ==
[2024-05-21 19:50] VITALS: BP 160/68; PULSE 69; RESP 17; TEMP 36.7; O2SAT 99; BMI 22.2
--- NOTE | 2024-05-21 20:00 | CT_ITS ---
PROCEDURE INFORMATION: Exam: CT Abdomen And Pelvis Without Contrast Exam date and time: 05/21/2024 8:07 PM Age: 74 years old Clinical indication: Nausea and vomiting; Additional info: Nausea, vom, no bm TECHNIQUE: Imaging protocol: Computed tomography of the abdomen and pelvis without contrast. Radiation optimization: All CT scans at this facility use at least one of these dose optimization techniques: automated exposure control; mA and/or kV adjustment per patient size (includes targeted exams where dose is matched to clinical indication); or iterative reconstruction. COMPARISON: CT ABDOMEN PELVIS W CON 12/26/2023 11:02 AM FINDINGS: Lungs: Dependent bilateral lung base opacities favor atelectasis. Diaphragm: A small sliding hiatal hernia is present. Liver: Nodular contours of the liver compatible with cirrhosis. Gallbladder and biliary ducts: There are surgical clips within the gallbladder fossa. Pancreas: Inflammatory stranding and fluid at the pancreatic head and descending duodenum is consistent with groove pancreatitis. Spleen: Multiple benign-appearing calcific densities of the spleen. Adrenal glands: Normal. No mass. Kidneys and ureters: Normal. No hydronephrosis. Stomach and bowel: Perirectal inflammatory changes may represent proctitis. Diverticula are scattered throughout the colon without inflammatory changes. Mild thickening inflammatory changes of the cecum may represent colitis. Appendix: No evidence of appendicitis. Intraperitoneal space: Unremarkable. No free air. No significant fluid collection. Vasculature: Moderate calcific atherosclerotic disease of the abdominal aorta without aneurysmal dilatation is present. Nonspecific inflammatory changes of the fat surrounding the MARICRUZ. Lymph nodes: Unremarkable. No enlarged lymph nodes. Urinary bladder: Unremarkable as visualized. Reproductive: Unremarkable as visualized. Bones/joints: Moderate loss of intervertebral disc space with degenerative changes at L3 through S1. Soft tissues: Normal. IMPRESSION: 1. Inflammatory stranding and fluid at the pancreatic head and descending duodenum is consistent with groove pancreatitis. No pseudocyst, abscess, vascular compromise or pancreatic necrosis. 2. Nodular contours of the liver compatible with cirrhosis. 3. Nonspecific inflammatory changes of the fat surrounding the MARICRUZ. 4. Perirectal inflammatory changes may represent proctitis. 5. Mild thickening inflammatory changes of the cecum may represent colitis.
--- NOTE | 2024-05-21 20:06 | PC.NURSE ---
Labs drawn and sent to lab
[2024-05-21] MEDS: ONDANSETRON 4MG/2ML VIAL 4 MG IV (20:17)
[2024-05-21] MEDS: SODIUM CHLORIDE 0.9% 10ML FLUSH SYRINGE 10 ML IV (20:17)
--- NOTE | 2024-05-21 20:23 | ED_ITS ---
Discharge Plan Disposition Patient Disposition: Home, Self-Care Condition: Good Prescriptions Prescriptions: New ondansetron 4 mg tablet,disintegrating 4 mg PO Q8H PRN (Reason: nausea and vomiting) 4 Days Qty: 12 0RF No Action losartan 100 mg tablet 100 mg PO DAILY bupropion HCl 150 mg tablet sustained-release 12 hr 150 mg PO HS Patient Comments: TAKE 1 TABLET BY MOUTH EVERY DAY IN THE MORNING simvastatin 20 MG tablet 20 mg PO PM montelukast 10 MG tablet 10 mg PO PM levothyroxine 150 mcg tablet 150 mcg PO AM Patient Comments: TAKE 1 TABLET BY MOUTH EVERY DAY IN THE MORNING lamotrigine 200 mg tablet 200 mg PO AM Patient Comments: TAKE 1 TABLET EVERY DAY BY ORAL ROUTE IN THE MORNING. metoprolol tartrate 25 MG tablet 25 mg PO BID 30 Days Qty: 60 0RF spironolactone 25 mg Tablet 25 mg PO DAILY 30 Days Qty: 30 0RF Jardiance 10 mg Tablet 10 mg PO DAILY 30 Days Qty: 30 0RF furosemide [Lasix] 40 mg tablet 40 mg PO DAILY PRN (Reason: Leg edema) Qty: 30 0RF aspirin 81 mg Capsule 81 mg PO DAILY Hair, Skin and Nails (biotin) 10,000 mcg Tablet,Chewable 10,000 mcg PO DAILY Centrum Adults 12 mcg Tablet,Chewable 1 tab PO DAILY insulin glargine [Basaglar KwikPen U-100 Insulin] 100 unit/mL (3 mL) Insulin Pen 30 unit SQ HS Referrals Follow up/Referrals: Radha Tapia [Primary Care Provider] - See instructions Activity Restrictions/Add. Instructions Additional Instructions/Restrictions: You were evaluated in the emergency department today. At this time, you are found to have findings concerning for inflammation of your pancreas as well as colitis. These things can cause nausea, vomiting, abdominal pain. I recommend bowel rest, so eat a very bland diet. Slowly advance your diet as able. supervisor [employer] your prescription for Zofran to take as needed for nausea and vomiting. Take Tylenol and ibuprofen at home as needed for pain. Follow-up closely with your primary care provider over the next 48 hours. Return to the emergency department for new or worsening symptoms. Please note that your urine has some white blood cells, so we are sending it for culture. We will call you if anything comes back positive and indicates need for antibiotics for your urine. Clinical Impressions Clinical Impression: Acute inflammation of the pancreas, Colitis, Hypokalemia Instructions Patient Instructions: DI for Diarrhea and Traveler's Diarrhea -- Adult, DI for Nausea -- Adult Print Language Print Language: Telugu Discharge ED Provider: Antonia Ford [facility] Adult HPI General Chief complaint: Nausea/Vomiting/Diarrhea Stated complaint: weakness Time Seen by Provider: 05/21/24 19:46 Mode of Arrival: EMS Source of Information: Patient Limitations: No Limitations History of Present Illness HPI narrative: This patient is a 74-year-old female with a history of type 2 diabetes, hypertension, hyperlipidemia, hypothyroidism, interstitial lung disease on home oxygen, prior tobacco use, progressive functional decline presented to the emergency department for evaluation with concern for nausea and vomiting. Patient states that since being discharged from the hospital, she has been taking her medications at home as instructed. She has a bottle of doxycycline with her that she reports she was taken off of when she was discharged on other antibiotics. Lysik she was discharged on cefdinir and azithromycin, which she reports compliance with. She states she has had some nausea for the last week, but no abdominal pain or fever. She states the vomiting really got bad today. She states that she is actually having trouble having bowel movement with last bowel movement being earlier today. No other concerns noted at this time. Related Data Home Medications ?Medication ?Instructions ?Recorded ?Confirmed montelukast 10 mg tablet 10 mg PO PM 11/16/18 05/16/24 simvastatin 20 mg tablet 20 mg PO PM 11/16/18 05/16/24 losartan 100 mg tablet 100 mg PO DAILY 02/17/23 05/16/24 lamotrigine 200 mg tablet 200 mg PO AM 04/25/24 05/16/24 levothyroxine 150 mcg tablet 150 mcg PO AM 04/25/24 05/16/24 bupropion HCl 150 mg tablet,12 hr 150 mg PO HS 05/16/24 05/16/24 sustained-release aspirin 81 mg capsule 81 mg PO DAILY Heart Disease 05/21/24 05/21/24 biotin 10,000 mcg chewable tablet 10,000 mcg PO DAILY Supplement 05/21/24 05/21/24 (Hair, Skin and Nails (biotin)) insulin glargine 100 unit/mL (3 30 unit SQ HS Diabetes 05/21/24 05/21/24 mL) subcutaneous pen (Basaglar KwikPen U-100 Insulin) multivitamin with minerals-folic 1 tab PO DAILY Supplement 05/21/24 05/21/24 acid 12 mcg chewable tablet (Centrum Adults) Previous Rx's ?Medication ?Instructions ?Recorded metoprolol tartrate 25 mg tablet 25 mg PO BID 30 days #60 tabs 04/26/24 empagliflozin 10 mg tablet 10 mg PO DAILY 30 days #30 tabs 05/09/24 (Jardiance) furosemide 40 mg tablet (Lasix) 40 mg PO DAILY PRN Leg edema #30 05/09/24 tabs spironolactone 25 mg tablet 25 mg PO DAILY 30 days #30 tabs 05/09/24 ondansetron 4 mg disintegrating 4 mg PO Q8H PRN nausea and 05/21/24 tablet vomiting 4 days #12 tabs Allergies Allergy/AdvReac Type Severity Reaction Status Date / Time No Known Allergies Allergy Verified 05/21/24 20:00 [facility] Disclaimer: The information contained in this section may have been updated after the patient was seen, as this information can be updated by other users. Medical History History of smoking 10-25 pack years ILD (interstitial lung disease) Asthma Vertigo Dizziness Acute UTI Asthma exacerbation Anxiety Bipolar 1 disorder Hypertension History of mastoiditis Vertigo Diabetes Postsurgical fever Hypothyroidism Surgical History History of tubal ligation History of colonoscopy History of cholecystectomy Family History Other COPD (chronic obstructive pulmonary disease) Cancer Hypertension Thyroid disorder Social History Smoking Status: Former smoker years smoked: 14 smoking status stop date: 1993 second hand exposure: Yes alcohol intake: never substance use type: marijuana current occupational status: retired Travel in the last 8 weeks: None household members: none housing: house 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 current occupational exposures/hazards: No caffeine: Yes Have you lived/traveled outside [place] in past 30 days?: No Contact w/someone who lives/traveled outside [place] past 30 days?: No Exposure to someone with infectious disease in past 14 days?: No Do you have a fever (greater than 100.4 F or 38 C)?: No Have you tested positive for COVID-19: No Exposed to someone with COVID-19 in past 14 days?: No Do you have a sore throat?: No Do you have a cough?: No Do you have any weakness?: No Do you have any diarrhea?: No Are you experiencing any unusual bleeding?: No Do you have any muscle aches/pain?: No Do you have any abdominal pain?: No Are you experiencing loss of taste or smell?: No Other Medical History Have you received the Flu Vaccine for this season: No Have you received the Pneumonia Vaccine: No ROS Obtained: Yes All systems reviewed & no additional complaints except as documented Physical Exam General General appearance: alert and in no apparent distress Head Head exam: atraumatic and normocephalic Eye Eye exam: Present normal appearance, PERRL and EOMI ENT ENT exam: Present normal exam, normal oropharynx, mucous membranes moist and normal external ear exam Neck Neck exam: Present normal inspection, full ROM and trachea midline; Absent tenderness Chest Chest inspection: Present normal inspection and symmetric chest wall rise; Absent tenderness Respiratory Respiratory exam: Present normal lung sounds bilaterally; Absent respiratory distress, wheezes, stridor or accessory muscle use Cardiovascular Cardiovascular exam: Present regular rate and normal rhythm Abdominal Exam Abdominal exam: Present soft; Absent distention, tenderness or guarding Extremities Exam Extremities exam: Present normal inspection, full ROM and normal capillary refill; Absent tenderness or edema Back Exam Back exam: Present normal inspection and full ROM; Absent tenderness Neurological Exam Neurological exam: Present alert, oriented X3, CN II-XII intact and normal gait; Absent motor sensory deficit Psychiatric Psychiatric exam: Present normal affect and normal mood Skin Skin exam: Present warm and dry Medical Decision Making Medical Records Medical records reviewed: Yes I reviewed the patient's medical records. Screening: Per USPSTF and CDC recommendations, given the prevalence of disease in our region, it is our hospital?s policy to screen for HIV and viral Hepatitis for all patients aged 18 and over and those with ongoing risk factors. Binu Inquiry Pt receiving controlled substance: No Vital Signs: 05/21/24 19:50 05/21/24 23:00 Temperature 98.0 F 98 F Temperature Source Oral Pulse Rate 80 Pulse Rate [Right Brachial] 69 Respiratory Rate 17 20 Blood Pressure 143/76 H Blood Pressure [Left Arm] 160/68 H Blood Pressure Mean [Left Arm] 98 Blood Pressure Source [Left Arm] Automatic Cuff Blood Pressure Position [Left Arm] Sitting 02 Sat by Pulse Oximetry 99 Oxygen Delivery Method Room Air Room Air Lab Data Lab results reviewed: Yes I reviewed the patient's lab results. Lab Results 05/21/24 20:04: WBC 13.3 H, RBC 4.57, Hgb 14.2, Hct 40.6, MCV 88.8, MCH 31.1, MCHC 35.0, RDW 14.2, Plt Count 260, MPV 7.4, Neut % (Auto) 61.6, Lymph % (Auto) 30.2, [place] % (Auto) 6.5, Eos % (Auto) 1.0, Baso % (Auto) 0.7, Neut # (Auto) 8.2 H, Lymph # (Auto) 4.0, [place] # (Auto) 0.9, Eos # (Auto) 0.1, Baso # (Auto) 0.1, Sodium 137, Potassium 3.3 L, Chloride 103, Carbon Dioxide 25, Anion Gap 12.3, B UN 18 H, Creatinine 1.00, Estimated Creat Clear 49, Estimated GFR 54 L, Est GFR ( Amer) 65, Glucose 205 H, Calcium 9.3, Total Bilirubin 0.9, AST 39 H, ALT 28, Alkaline Phosphatase 57, Total Protein 6.7, Albumin 4.0, Globulin 2.7, Albumin/Globulin Ratio 1.5, Lipase 223 05/21/24 20:30: Urine Color Yellow, Urine Appearance Clear, Urine pH 7.0, Ur Specific [place] 1.010, Urine Protein Negative, Urine Glucose (UA) 3+, Urine Ketones Negative, Urine Blood Negative, Urine Nitrate Negative, Urine Bilirubin Negative, Urine Urobilinogen 0.2, Ur Leukocyte Esterase Negative, Urine RBC None, Urine WBC 20-50, Ur Squamous Epith Cells Occasional, Urine Bacteria Trace 05/21/24 20:04 05/21/24 20:04 Orders (Tests/Meds): ED MEDICATIONS Discontinued Medications Generic Name Dose Route Start Last Admin Trade Name Freq PRN Reason Stop Dose Admin Ondansetron HCl 4 mg 05/21/24 20:00 05/21/24 20:17 Ondansetron 4mg/2ml Vial IV 05/21/24 20:01 4 mg ONCE ONE Administration Potassium Chloride 40 meq 05/21/24 22:01 05/21/24 22:08 Potassium Chloride 20meq Tab PO 05/21/24 22:02 40 meq ONCE ONE Administration Sodium Chloride 10 ml 05/21/24 19:58 05/21/24 20:17 Sodium Chloride 0.9% 10ml Flush Syringe IV 06/20/24 19:57 10 ml NEEDED PRN Administration Maintain IV Site ORDERS Category Date Time Status CT abdomen pelvis wo con Stat Cat Scan 05/21/24 20:00 Completed Complete Blood Count Auto Diff Stat Lab 05/21/24 20:04 Completed Comprehensive Metabolic Panel Stat Lab 05/21/24 20:04 Completed Lipase Stat Lab 05/21/24 20:04 Completed UA [Urinalysis and Microscopic] Stat Lab 05/21/24 20:30 Completed Urine Culture Stat Micro 05/21/24 20:30 Received Medical Decision Narrative: In summary, this patient is a 74-year-old female presenting to the Emergency Department for evaluation of nausea, vomiting, constipation. Differential diagnoses considered include but are not limited to constipation, bowel obstruction, gastroenteritis, colitis, ileus, dehydration, CANDIDO, urinary tract infection. Ruling out the most morbid conditions drove assessment. It should be noted patient's history includes progressive functional decline, interstitial lung disease on home oxygen, hypertension, hyperlipidemia, hypothyroidism, diabetes which may or may not be at goal therapy. This complicates all aspects of care by increasing patient's risk for morbidity. I reviewed patient's past medical records and noted multiple recent hospitalizations for respiratory failure in the setting of upper respiratory infection and progressive functional decline. Also noted pulmonology follow-up after discharge from ED. On exam, the patient is sitting in bed in no acute distress with reassuring exam. Abdominal exam is benign. Vitals are reassuring on cardiac telemetry on her home oxygen. Workup included CBC, CMP, lipase, urinalysis, and CT abdomen pelvis without IV contrast. She was given IV Zofran for symptomatic improvement of nausea and vomiting. CT scan concerning for inflammatory stranding at the pancreatic head, duodenum, inflammation of the colon, possible proctitis. Labs were obtained that demonstrated very mild leukocytosis, which is nonspecific. Could be leukemoid reaction from vomiting. Chemistry is reassuring and around the patient's baseline. Lipase is negative and abdominal exam is benign with no significant pain. Patient does have hypokalemia for which oral replacement was ordered. She tolerated this well. She did tolerate p.o. intake without issue. Her urine was positive for white blood cells but no significant leukocyte esterase or nitrates. Will avoid antibiotics at this time as she has had multiple recent antibiotics. I am sending urine culture to see if she could have a urinary tract fraction. On reassessment, patient had great improvement after administration of Zofran. She is tolerating oral intake and vitals and abdominal exam are benign and reassuring. At this time, I feel she is appropriate for discharge home. She is noted of all CT scan findings and was given instructions for close outpatient follow-up for reassessment. She was given instruction for supportive management, prescription for Zofran, and strict return precautions. She was discharged after all questions were answered. Critical Care Critical Care Time Critical Care Time: No
[2024-05-21 20:30] LABS: Chloride 103 mmol/L (98-107); Potassium 3.3 mmoL/L (3.5-5.1); Sodium 137 mmol/L (136-145)
[2024-05-21 20:32] LABS: Basophils # 0.1 K/mm3 (0-0.2); Basophils % 0.7 % (0.1-2.0); Blood Urea Nitrogen 18 mg/dl (7-17); Creatinine Clearance Estimated 49 mL/min (50-200); Eosinophils # 0.1 K/mm3 (0.0-0.4); Estimated Glomerular Filt Rate 54 ml/min (>60); GFR (African American) 65 ML/MIN (>60); Hematocrit 40.6 % (37.0-47.0); Hemoglobin 14.2 g/dL (12.2-16.2); Lymphocytes % 30.2 % (10-50); Mean Corpuscular Hemoglobin 31.1 pg (27.0-31.2); Mean Corpuscular Volume 88.8 fl (81-99); Mean Platelet Volume 7.4 fl (7.4-10.4); Monocytes # 0.9 K/mm3 (0.1-1.0); Monocytes % 6.5 % (1.7-9.3); Neutrophils # 8.2 K/mm3 (1.8-7.8); Neutrophils % 61.6 % (37.0-80.0); Platelet Count 260 K/mm3 (142-424); Red Blood Count 4.57 M/mm3 (4.20-5.40); Red Cell Distribution Width 14.2 % (11.5-17.5); White Blood Count 13.3 K/mm3 (4.8-10.8)
[2024-05-21 20:33] LABS: Alanine Aminotransferase 28 U/L (12-78); Albumin/Globulin Ratio 1.5 (1.1-1.8); Alkaline Phosphatase 57 U/L (38-126); Anion Gap 12.3 mEq/L (5-15); Aspartate Amino Transferase 39 U/L (14-36); Bilirubin,Total 0.9 mg/dl (0.2-1.3); Carbon Dioxide 25 mmol/L (22.0-30.0); Globulin 2.7 g/dL (1.3-3.2); Lipase 223 U/L (23-300); Total Protein,Serum 6.7 g/dl (6.3-8.2)
[2024-05-21 20:34] LABS: Calcium 9.3 mg/dl (8.4-10.2); Glucose 205 mg/dl (74-100)
[2024-05-21 20:35] LABS: Microscopic, Urine URINE MICROSCOPIC (MICROSCOPIC)
[2024-05-21 20:54] LABS: Appearance,Urine CLEAR (Clear); Bilirubin,Urine Negative (Negative); Blood, Urine Negative (Negative); Color,Urine YELLOW (Yellow); Glucose,Urine (UA) 3+ (Negative); Ketones,Urine Negative (Negative); Leukocyte Esterase,Urine Negative (Negative); Nitrate,Urine Negative (Negative); Protein,Urine Negative (Negative); Urobilinogen,Urine 0.2 EU/dl (0.2)
[2024-05-21 21:34] LABS: Bacteria,Urine Trace /lpf; Squamous Epithelial Cell,Urine Occasional #/hpf (0-5); WBC,Urine 20-50 #/hpf (0-3)
[2024-05-21] MEDS: POTASSIUM CHLORIDE 20MEQ TAB 40 MEQ PO (22:08)
[2024-05-21 23:00] VITALS: BP 143/76; PULSE 80; RESP 20; TEMP 36.6; O2SAT 98
== END 2024-05-21 23:09 | disposition home or self-care (01) ==
PROVIDERS: Emergency Provider Emergency Medicine; PCP Nurse Practitioner Family
DX: E87.6 Hypokalemia (principal); K52.9 Noninfective gastroenteritis and colitis, unspecified; K85.90 Acute pancreatitis without necrosis or infection, unspecified; R11.2 Nausea with vomiting, unspecified; R53.1 Weakness; K59.00 Constipation, unspecified
CPT/HCPCS: 74176; 80053; 81001; 83690; 85025; 87086; 96374; 99284; J2405

== ENCOUNTER 2024-12-02 20:37 | Inpatient (IN) | payer MEDICARE, OTHER, SELFPAY ==
--- OUTSIDE RECORDS SUMMARY | 2024-10-25 20:00 | XMS_ITS | Clinical Summary ---
Author Organization Unknown Care Team Providers Care Cloud Operations Engineer Name Role Phone SUSAN SPIRITUAL CARE COORDINATOR, FRANK Unavailable Unavailable ALISON PT, PEREZ Unavailable Unavailable TAM RN, AKI Unavailable Unavailable LAURA WILLIAMSONN, DOLLY Unavailable Unavaileric LERNER SAW BOSS, SHANE Unavailable Unavailable PAOLA OT, PRICILA Unavailable Unavailable ELSA RN, NAY Unavailable Unavailable TIM VALADEZ/CHELE, BLAKE Unavailable Un available Payers Payer Name Policy Type Policy Number Effective Date Expira tion Date MEDICARE.[facility] [id number] Problems Condition Name Condition Details Condition Category Status Onset Date Resolution Date Last Treatment Date Treating Clinician Comments HYPERTENSIVE HEART DISEASE WITH HEART FAILURE Active 06-27 00:00: 00 UNSPECIFIED DIASTOLIC (CONGESTIVE) HEART FAILURE Active 06-07 00:00: 00 TYPE 2 DIABETES MELLITUS WITHOUT COMPLICATION S Active 06-07 00:00: 00 UNSPECIFIED ASTHMA WITH (ACUTE) EXACERBATION Active 2023-06 00:00: 00 BIPOLAR DISORDER, UNSPECIFIED Active 06-07 00:00: 00 ANXIETY DISORDER, UNSPECIFIED Active 06-07 00:00: 00 HYPOTHYROIDI SM, UNSPECIFIED Active 06-07 00:00: 00 MIXED HYPERLIPIDEM IA Active 06-07 00:00: 00 UNSPECIFIED CONVULSIONS Active 06-07 00:00: 00 ADULT FAILURE TO THRIVE Active 2023-06 00:00: 00 REPEATED FALLS Active 2023-06 00:00: 00 GROUP HOME (CURRENT) USE OF INSULIN Active 06-07 00:00: 00 PERSONAL HISTORY OF NICOTINE DEPENDENCE Active 06-07 00:00: 00 HISTORY OF FALLING Active 06-07 00:00: 00 DEPENDENCE ON SUPPLEMENTAL OXYGEN Active 2023-06 00:00: 00 PERSONAL HISTORY OF URINARY (TRACT) INFECTIONS Active 06-07 00:00: 00 Allergies, Adverse Reactions, Alerts Allergy Name Allergy Type Status Severity Reaction(s) Onset Date Inactive Date Treating Clinician Comments NO KNOWN ALLERGIES Propensity to adverse reactions Active 2023-06 13:13: 48 Medications Ordered Medication Name Filled Medication Name Start Date Stop Date Current Medication? Ordering Clinician Indication Dosage Frequency Signature (SIG) Comments Components levofloxaci n 750 mg tablet 2023-06 00:00: 00 05-08 23:59 :00 No [id number] INFECTION 1 tablet DAILY 1 tablet DAILY (route: oral) Med Classific ation: Anti-Infe ctive Agents trazodone 50 mg tablet 2023-06 00:00: 00 05-12 23:59 :00 No [id number] SLEEP 1 tablet AT BEDTIME NEEDED 1 tablet AT BEDTIME NEEDED (route: oral) Med Classific ation: Central Nervous System Agents metoprolol tartrate 25 mg tablet 2023-06 00:00: 00 Yes [id number] CARDIAC 1 tablet 2 TIMES DAILY 1 tablet 2 TIMES DAILY (route: oral) Med Classific ation: Cardiovas cular Therapy Agents montelukast 10 mg tablet 2023-06 00:00: 00 Yes [id number] ALLERGIES 1 tablet DAILY 1 tablet DAILY (route: oral) Med Classific ation: Respirato ry Therapy Agents simvastatin 20 mg tablet 2023-06 00:00: 00 Yes [id number] HDL 1 tablet DAILY 1 tablet DAILY (route: oral) Med Classific ation: Cardiovas cular Therapy Agents fluoxetine 40 mg capsule 2023-06 00:00: 00 Yes [id number] DEPRESSION 1 capsule EVERY DAY 1 capsule EVERY DAY (route: oral) Med Classific ation: Central Nervous System Agents lamotrigine 200 mg tablet 2023-06 00:00: 00 Yes [id number] PAINTER AND DECORATOR 1 tablet DAILY 1 tablet DAILY (route: oral) Med Classific ation: Central Nervous System Agents Basaglar KwikPen U-100 Insulin 100 unit/mL (3 mL) subcutaneou s 2023-06 0- 00:00: 00 Yes [id number] DM 30 unit SUBCUTANEO USLY EVERY NIGHT AT BEDTIME 30 unit SUBCUTANEO USLY EVERY NIGHT AT BEDTIME (route: subcutaneo us) Med Classific ation: Endocrine levothyroxi ne 150 mcg tablet 2023-06 00:00: 00 Yes [id number] HYPOTHYROID ISM 1 tablet DAILY 1 tablet DAILY (route: oral) Med Classific ation: Endocrine losartan 100 mg tablet 2023-06 00:00: 00 Yes [id number] HTN 1 tablet DAILY 1 tablet DAILY (route: oral) Med Classific ation: Cardiovas cular Therapy Agents meclizine 25 mg tablet 2023-06 00:00: 00 Yes [id number] VERTIGO 1 tablet 3 TIMES DAILY 1 tablet 3 TIMES DAILY (route: oral) Med Classific ation: Gastroint estinal Therapy Agents ondansetron 4 mg disintegrat ing tablet 2023-06 00:00: 00 Yes [id number] NAUSEA 1 tablet EVERY 6 HOURS 1 tablet EVERY 6 HOURS (route: oral) Med Classific ation: Gastroint estinal Therapy Agents Advair Diskus 500 mcg-50 mcg/dose powder for inhalation 2023-06 00:00: 00 Yes [id number] ASTHMA, BREATHING 1 inhalat ion 2 TIMES DAILY 1 inhalation 2 TIMES DAILY (route: inhalation ) Med Classific ation: Respirato ry Therapy Agents furosemide 40 mg tablet 2023-06 00:00: 00 Yes [id number] EDEMA, WT GAIN 1 tablet NEEDED 1 tablet NEEDED (route: oral) Med Classific ation: Cardiovas cular Therapy Agents hydroxyzine HCl 25 mg tablet 2022-06 00:00: 00 Yes [id number] ANXIETY 1 tablet DAILY 1 tablet DAILY (route: oral) Med Classific ation: Central Nervous System Agents Jardiance 10 mg tablet 2023-06 2 00:00: 00 Yes [id number] BS 1 tablet DAILY 1 tablet DAILY (route: oral) Med Classific ation: Endocrine prednisone 20 mg tablet 2023-06 00:00: 00 05-18 23:59 :00 No [id number] BREATHING 2 tablet DAILY 2 tablet DAILY (route: oral) Med Classific ation: Endocrine spironolact one 25 mg tablet 2023-06 2 00:00: 00 Yes [id number] HEART 1 tablet DAILY 1 tablet DAILY (route: oral) Med Classific ation: Cardiovas cular Therapy Agents azithromyci n 250 mg tablet 2023-06 00:00: 00 05-21 23:59 :00 No [id number] BRONCHITIS 2 tablet DIRECTED 2 tablet DIRECTED (route: oral) Med Classific ation: Anti-Infe ctive Agents albuterol sulfate 0.63 mg/3 mL solution for nebulizatio n 2022-06 00:00: 00 Yes [id number] SOA Per instruc tions NEEDED Per instructio ns NEEDED (route: inhalation ) Med Classific ation: Respirato ry Therapy Agents bupropion HCl 75 mg tablet 09-26 00:00: 00 Yes [id number] DEPRESSION 1 tablet DAILY 1 tablet DAILY (route: oral) Med Classific ation: Central Nervous System Agents Vital Signs Vital Name Observation Time Observation Value Commen ts Temperature 2024-10-26 12:08:00.000 97.3 [degF] Temperature 2024-10-18 11:03:00.000 98 [degF] Temperature 2024-10-12 10:26:00.000 98.1 [degF] Temperature 2024-10-05 10:44:00.000 98.5 [degF] Temperature 2024-09-26 13:43:00.000 97.6 [degF] Temperature 2024-09-22 13:25:00.000 98 [degF] Temperature 2024-09-13 10:51:00.000 98.1 [degF] Temperature 2024-09-06 10:11:00.000 98.1 [degF] Temperature 2024-09-01 10:15:00.000 98.1 [degF] Pulse 2024-10-26 12:08:00.000 62 /min Pulse 2024-10-18 11:03:00.000 64 /min Pulse 2024-10-12 10:26:00.000 76 /min Pulse 2024-10-05 10:44:00.000 75 /min Pulse 2024-09-26 13:43:00.000 60 /min Pulse 2024-09-22 13:25:00.000 60 /min Pulse 2024-09-13 10:51:00.000 62 /min Pulse 2024-09-06 10:11:00.000 67 /min Pulse 2024-09-01 10:15:00.000 62 /min O2 Saturation (%) 2024-10-26 12:08:00.000 95 % O2 Saturation (%) 2024-10-18 11:03:00.000 94 % O2 Saturation (%) 2024-10-12 10:26:00.000 96 % O2 Saturation (%) 2024-10-05 10:44:00.000 95 % O2 Saturation (%) 2024-09-26 13:43:00.000 97 % O2 Saturation (%) 2024-09-22 13:25:00.000 95 % O2 Saturation (%) 2024-09-13 10:51:00.000 94 % O2 Saturation (%) 2024-09-06 10:11:00.000 95 % O2 Saturation (%) 2024-09-01 10:15:00.000 96 % Respirations 2024-10-26 12:08:00.000 18 /min Respirations 2024-10-18 11:03:00.000 20 /min Respirations 2024-10-12 10:26:00.000 18 /min Respirations 2024-10-05 10:44:00.000 18 /min Respirations 2024-09-26 13:43:00.000 20 /min Respirations 2024-09-22 13:25:00.000 18 /min Respirations 2024-09-13 10:51:00.000 18 /min Respirations 2024-09-06 10:11:00.000 18 /min Respirations 2024-09-01 10:15:00.000 18 /min Weight (lbs) 2024-10-26 12:10:00.000 160 [lb_av] Weight (lbs) 2024-10-18 11:03:00.000 160 [lb_av] Weight (lbs) 2024-10-12 10:26:00.000 157 [lb_av] Weight (lbs) 2024-10-05 10:45:00.000 159.2 [lb_av] Weight (lbs) 2024-09-26 13:43:00.000 162 [lb_av] Weight (lbs) 2024-09-22 13:26:00.000 161 [lb_av] Weight (lbs) 2024-09-13 10:51:00.000 161 [lb_av] Weight (lbs) 2024-09-06 10:11:00.000 162 [lb_av] Weight (lbs) 2024-09-01 10:15:00.000 163 [lb_av] Systolic Blood Pressure 2024-10-26 12:08:00.000 120 mm [Hg] Systolic Blood Pressure 2024-10-18 11:03:00.000 132 mm [Hg] Systolic Blood Pressure 2024-10-12 10:26:00.000 126 mm [Hg] Systolic Blood Pressure 2024-10-05 10:44:00.000 142 mm [Hg] Systolic Blood Pressure 2024-09-26 13:43:00.000 126 mm [Hg] Systolic Blood Pressure 2024-09-22 13:25:00.000 104 mm [Hg] Systolic Blood Pressure 2024-09-13 10:51:00.000 124 mm [Hg] Systolic Blood Pressure 2024-09-06 10:11:00.000 124 mm [Hg] Systolic Blood Pressure 2024-09-01 10:15:00.000 138 mm [Hg] Diastolic Blood Pressure 2024-10-26 12:08:00.000 82 mm [Hg] Diastolic Blood Pressure 2024-10-18 11:03:00.000 88 mm [Hg] Diastolic Blood Pressure 2024-10-12 10:26:00.000 82 mm [Hg] Diastolic Blood Pressure 2024-10-05 10:44:00.000 88 mm [Hg] Diastolic Blood Pressure 2024-09-26 13:43:00.000 78 mm [Hg] Diastolic Blood Pressure 2024-09-22 13:25:00.000 68 mm [Hg] Diastolic Blood Pressure 2024-09-13 10:51:00.000 76 mm [Hg] Diastolic Blood Pressure 2024-09-06 10:11:00.000 76 mm [Hg] Diastolic Blood Pressure 2024-09-01 10:15:00.000 64 mm [Hg] Plan of Treatment Planned Activity Planned Date Details Comments Future Scheduled Test RN TO OBSE RVE, ASSESS, EVALUATE, AND DEVELOP AN INDIVIDUALIZED PLAN OF CARE. AGENCY MAY ACCEPT ORDERS FROM CONSULTING PHYSICIANS FRANK DAVIS NP RN TO OBSERVE AND ASSESS, BALLASTER/TEST DECK SUPERVISOR TO OBSERVE FOR RISK FOR FALLS AND INSTRUCT IN FALL PREVENTION, HOME SAFETY, MEDICATION MANAGEMENT, INFECTION PREVENTION, AND NUTRITION MANAGEMENT. RN/BALLASTER/TEST DECK SUPERVISOR NURSE MAY PERFORM O2 SATURATION LEVEL ON ADMISSION AND PRN FOR DESAT FOR RN TO ASSESS/BALLASTER TO OBSERVE PATIENT, WITH NOTIFICATION TO THE PHYSICIAN IF SATURATION IS 90% IN THE ABSENCE OF MORE SPECIFIC PARAMETERS FROM THE PHYSICIAN. AGENCY MAY PERFORM A RESUMPTION OF CARE VISIT FOLLOWING ANY HOSPITAL ADMISSION. RN/BALLASTER/TEST DECK SUPERVISOR TO MONITOR CO-MORBID CONDITIONS LISTED ON THE PLAN OF CARE AND ANY NEW CONDITIONS THAT PRESENT THEMSELVES DURING THIS EPISODE TO IDENTIFY CHANGES AND INTERVENE TO MINIMIZE COMPLICATIONS. [code = RN TO OBSERVE, ASSESS, EVALUATE, AND DEVELOP AN INDIVIDUALIZED PLAN OF CARE. AGENCY MAY ACCEPT ORDERS FROM CONSULTING PHYSICIANS FRANK DAVIS SPIRITUAL CARE COORDINATOR RN TO OBSERVE AND ASSESS, BALLASTER/TEST DECK SUPERVISOR TO OBSERVE FOR RISK FOR FALLS AND INSTRUCT IN FALL PREVENTION, HOME SAFETY, MEDICATION MANAGEMENT, INFECTION PREVENTION, AND NUTRITION MANAGEMENT. RN/BALLASTER/TEST DECK SUPERVISOR NURSE MAY PERFORM O2 SATURATION LEVEL ON ADMISSION AND PRN FOR DESAT FOR RN TO ASSESS/BALLASTER TO OBSERVE PATIENT, WITH NOTIFICATION TO THE PHYSICIAN IF SATURATION IS 90% IN THE ABSENCE OF MORE SPECIFIC PARAMETERS FROM THE PHYSICIAN. AGENCY MAY PERFORM A RESUMPTION OF CARE VISIT FOLLOWING ANY HOSPITAL ADMISSION. RN/BALLASTER/TEST DECK SUPERVISOR TO MONITOR CO-MORBID CONDITIONS LISTED ON THE PLAN OF CARE AND ANY NEW CONDITIONS THAT PRESENT THEMSELVES DURING THIS EPISODE TO IDENTIFY CHANGES AND INTERVENE TO MINIMIZE COMPLICATIONS.] Future Scheduled Test RISK FOR H OSPITALIZATION; RN TO ASSESS/TEACH, TEST DECK SUPERVISOR/BALLASTER TO OBSERVE/TEACH PATIENT/CAREGIVER ON RISK FOR HOSPITALIZATION/EMERGENCY ROOM VISITS, TEACH SIGNS AND SYMPTOMS THAT PUT PATIENT AT RISK, WHEN TO NOTIFY NURSE/PHYSICIAN OF COMPLICATIONS/DECLINE, AND WHEN TO CALL 911. [code = RISK FOR HOSPITALIZATION; RN TO ASSESS/TEACH, TEST DECK SUPERVISOR/BALLASTER TO OBSERVE/TEACH PATIENT/CAREGIVER ON RISK FOR HOSPITALIZATION/EMERGENCY ROOM VISITS, TEACH SIGNS AND SYMPTOMS THAT PUT PATIENT AT RISK, WHEN TO NOTIFY NURSE/PHYSICIAN OF COMPLICATIONS/DECLINE, AND WHEN TO CALL 911.] Future Scheduled Test CARDIOVASC ULAR SYSTEM; RN TO ASSESS/TEACH, BALLASTER/TEST DECK SUPERVISOR TO OBSERVE/TEACH RELATED TO ALTERED CARDIOVASCULAR STATUS TO MINIMIZE COMPLICATIONS AND REDUCE HOSPITALIZATION. [code = CARDIOVASCULAR SYSTEM; RN TO ASSESS/TEACH, BALLASTER/TEST DECK SUPERVISOR TO OBSERVE/TEACH RELATED TO ALTERED CARDIOVASCULAR STATUS TO MINIMIZE COMPLICATIONS AND REDUCE HOSPITALIZATION.] Future Scheduled Test HEART FAIL URE; RN TO ASSESS/TEACH, BALLASTER/TEST DECK SUPERVISOR TO OBSERVE/TEACH CARDIOPULMONARY SYSTEM TO IDENTIFY SIGNS OF DECOMPENSATION AND INTERVENE TO MINIMIZE THE SEVERITY OF FLUID OVERLOAD. OBSERVE PATIENT ABILITY TO MONITOR AND RECORD DAILY WEIGHTS AND VITAL SIGNS, INCLUDING PULSE AND BLOOD PRESSURE; RECORD PATIENT REPORTED WEIGHT, OR WEIGH PATIENT NEEDED. REPORT INCREASED EDEMA OR WEIGHT GAIN OF >2 LBS IN 1 DAY OR >5 LBS IN 1 WEEK OR 5LBS OR MORE OVER TARGET WEIGHT. MAY MEASURE ABDOMINAL GIRTH IF UNABLE TO WEIGH. SCALES AND BP MONITOR TO BE PROVIDED IF NEEDED. [code = HEART FAILURE; RN TO ASSESS/TEACH, BALLASTER/TEST DECK SUPERVISOR TO OBSERVE/TEACH CARDIOPULMONARY SYSTEM TO IDENTIFY SIGNS OF DECOMPENSATION AND INTERVENE TO MINIMIZE THE SEVERITY OF FLUID OVERLOAD. OBSERVE PATIENT ABILITY TO MONITOR AND RECORD DAILY WEIGHTS AND VITAL SIGNS, INCLUDING PULSE AND BLOOD PRESSURE; RECORD PATIENT REPORTED WEIGHT, OR WEIGH PATIENT NEEDED. REPORT INCREASED EDEMA OR WEIGHT GAIN OF >2 LBS IN 1 DAY OR >5 LBS IN 1 WEEK OR 5LBS OR MORE OVER TARGET WEIGHT. MAY MEASURE ABDOMINAL GIRTH IF UNABLE TO WEIGH. SCALES AND BP MONITOR TO BE PROVIDED IF NEEDED.] Future Scheduled Test RESPIRATOR Y SYSTEM MANAGEMENT; RN TO ASSESS AND TEACH, BALLASTER/TEST DECK SUPERVISOR TO OBSERVE AND TEACH RELATED TO ALTERED RESPIRATORY STATUS TO MINIMIZE COMPLICATIONS AND REDUCE HOSPITALIZATION. [code = RESPIRATORY SYSTEM MANAGEMENT; RN TO ASSESS AND TEACH, BALLASTER/TEST DECK SUPERVISOR TO OBSERVE AND TEACH RELATED TO ALTERED RESPIRATORY STATUS TO MINIMIZE COMPLICATIONS AND REDUCE HOSPITALIZATION.] Future Scheduled Test ASTHMA MAN AGEMENT; RN TO ASSESS AND TEACH, BALLASTER/TEST DECK SUPERVISOR TO OBSERVE AND TEACH ASTHMA MANAGEMENT AND PROVIDE EARLY INTERVENTIONS TO MINIMIZE RISK OF HOSPITALIZATION [code = ASTHMA MANAGEMENT; RN TO ASSESS AND TEACH, BALLASTER/TEST DECK SUPERVISOR TO OBSERVE AND TEACH ASTHMA MANAGEMENT AND PROVIDE EARLY INTERVENTIONS TO MINIMIZE RISK OF HOSPITALIZATION] Future Scheduled Test DIABETES M ANAGEMENT; RN TO ASSESS AND TEACH, TEST DECK SUPERVISOR/BALLASTER TO OBSERVE AND TEACH INSTRUCTIONS OF DIABETIC CARE TO INCLUDE: DIET DIABETIC SKIN CARE, SIGNS AND SYMPTOMS OF HYPO/HYPERGLYCEMIA, PROPER ADMINISTRATION OF DIABETIC MEDICATION. RN/TEST DECK SUPERVISOR/BALLASTER TO INSTRUCT ON DIABETIC FOOT CARE AND MONITOR FOR SKIN LESIONS ON LOWER EXTREMITIES. BLOOD GLUCOSE TESTING TID FREQ. RN TO ASSESS AND TEACH, TEST DECK SUPERVISOR/BALLASTER TO OBSERVE AND TEACH PATIENT/CAREGIVER ABILITY TO PERFORM AND RECORD BLOOD GLUCOSE TESTING ORDERED AND TO REPORT ABNORMAL FINDINGS TO PHYSICIAN. RN/TEST DECK SUPERVISOR/BALLASTER MAY PERFORM BLOOD GLUCOSE TEST NEEDED. RN/TEST DECK SUPERVISOR/BALLASTER TO REPORT TO PHYSICIAN BLOOD GLUCOSE READINGS GREATER THAN 60 OR LESS THAN 300 RN/TEST DECK SUPERVISOR/BALLASTER TO INSTRUCT PATIENT ON IMPORTANCE OF HGBA1C MONITORING, KIDNEY FUNCTION TEST, EYE AND FOOT EXAMS. [code = DIABETES MANAGEMENT; RN TO ASSESS AND TEACH, TEST DECK SUPERVISOR/BALLASTER TO OBSERVE AND TEACH INSTRUCTIONS OF DIABETIC CARE TO INCLUDE: DIET DIABETIC SKIN CARE, SIGNS AND SYMPTOMS OF HYPO/HYPERGLYCEMIA, PROPER ADMINISTRATION OF DIABETIC MEDICATION. RN/TEST DECK SUPERVISOR/BALLASTER TO INSTRUCT ON DIABETIC FOOT CARE AND MONITOR FOR SKIN LESIONS ON LOWER EXTREMITIES. BLOOD GLUCOSE TESTING TID FREQ. RN TO ASSESS AND TEACH, TEST DECK SUPERVISOR/BALLASTER TO OBSERVE AND TEACH PATIENT/CAREGIVER ABILITY TO PERFORM AND RECORD BLOOD GLUCOSE TESTING ORDERED AND TO REPORT ABNORMAL FINDINGS TO PHYSICIAN. RN/TEST DECK SUPERVISOR/BALLASTER MAY PERFORM BLOOD GLUCOSE TEST NEEDED. RN/TEST DECK SUPERVISOR/BALLASTER TO REPORT TO PHYSICIAN BLOOD GLUCOSE READINGS GREATER THAN 60 OR LESS THAN 300 RN/TEST DECK SUPERVISOR/BALLASTER TO INSTRUCT PATIENT ON IMPORTANCE OF HGBA1C MONITORING, KIDNEY FUNCTION TEST, EYE AND FOOT EXAMS.] Future Scheduled Test FALL REDUC TION MANAGEMENT; RN TO ASSESS AND OBSERVE, BALLASTER/TEST DECK SUPERVISOR TO OBSERVE FALL RISK FACTORS AND EDUCATE PATIENT/CAREGIVER ON STRATEGIES TO MINIMIZE THE RISK OF FALLING. [code = FALL REDUCTION MANAGEMENT; RN TO ASSESS AND OBSERVE, BALLASTER/TEST DECK SUPERVISOR TO OBSERVE FALL RISK FACTORS AND EDUCATE PATIENT/CAREGIVER ON STRATEGIES TO MINIMIZE THE RISK OF FALLING.] Future Scheduled Test PRN VISITS ; NUMBER OF RN/BALLASTER/TEST DECK SUPERVISOR VISITS: 2 RN/BALLASTER/TEST DECK SUPERVISOR TO PERFORM: ASSESSMENT FOR THE FOLLOWING REASONS: EXACERBATION OF HF INCLUDING WEIGHT GAIN, SOB [code = PRN VISITS; NUMBER OF RN/BALLASTER/TEST DECK SUPERVISOR VISITS: 2 RN/BALLASTER/TEST DECK SUPERVISOR TO PERFORM: ASSESSMENT FOR THE FOLLOWING REASONS: EXACERBATION OF HF INCLUDING WEIGHT GAIN, SOB] Goal 2024-05-16 Patient Goal - TO KEEP FROM FALLING. Goal 2024-08-26 Patient Goal - TO KEEP FROM FALLING. Goal 2024-10-26 Patient Goal - TO KEEP FROM FALLING. Goal 2024-06-27 Patient Goal - TO KEEP FROM FALLING. Goal Provider Goal - A PLAN OF CARE WILL BE ESTABLISHED THAT MEETS THE PATIENTS NEEDS. PATIENT WILL DEMONSTRATE OXYGEN SATURATION WITHIN NORMAL LIMITS OR PATIENTS OPTIMAL LEVEL ESTABLISHED BY THE PHYSICIAN THROUGHOUT CARE. CHANGES TO CO-MORBID CONDITIONS AND ANY NEW CONDITIONS WILL BE IDENTIFIED AND REPORTED TO THE PHYSICIAN. Goal Provider Goal - PATIENT/CAREGIVER WILL VERBALIZE UNDERSTANDING OF SIGNS AND SYMPTOMS THAT PUT THE PATIENT AT RISK FOR HOSPITALIZATION /EMERGENCY ROOM VISITS, WHEN TO NOTIFY NURSE/PHYSICIAN OF COMPLICATIONS/DECLINE AND WHEN TO CALL 911. Goal Provider Goal - PATIENT / CAREGIVER WILL VERBALIZE/DEMONSTRATE UNDERSTANDING OF MEASURES TO MANAGE ALTERED CARDIOVASCULAR STATUS BY 10/28/24. Goal Provider Goal - PATIENT / CAREGIVER WILL VERBALIZE/DEMONSTRATE AN ABILITY TO ADHERE TO SELF-MANAGEMENT OF HF TO MINIMIZE COMPLICATIONS AND AVOID HOSPITALIZATION BY 5..25. Goal Provider Goal - PATIENT / CAREGIVER WILL VERBALIZE/DEMONSTRATE UNDERSTANDING OF MEASURES TO MANAGE ALTERED RESPIRATORY STATUS BY 5..25. Goal Provider Goal - PATIENT/CAREGIVER WILL VERBALIZE/ DEMONSTRATE AN ABILITY TO ADHERE TO SELF-MANAGEMENT OF ASTHMA TO MINIMIZE COMPLICATIONS AND AVOID HOSPITALIZATIONS BY 5..25. Goal Provider Goal - PATIENT / CAREGIVER WILL VERBALIZE / DEMONSTRATE AN ABILITY TO ADHERE TO SELF-MANAGEMENT OF DIABETES MANAGEMENT BY 10/28/24. Goal Provider Goal - PATIENT/CAREGIVER WILL VERBALIZE/DEMONSTRATE UNDERSTANDING OF FALL RISK FACTORS AND IMPLEMENT STRATEGIES TO MINIMIZE FALL RISK. PATIENT/CAREGIVER WILL VERBALIZE/DEMONSTRATE AN ABILITY TO ADHERE TO FALL REDUCTION SELF-MANAGEMENT AND LIFE-STYLE CHANGES BY 10/28/24 Goal Provider Goal - Reason for Visit INDEPENDENT IN THE COMMUNITY Encounters Start Date/Time End Date/Time Encounter Type Admission Type Attending [facility] Care Facility Care Department Encounter ID Discharge Date Discharge Status Discharge Condition Discharge Reason Percent Goals Met 2024-08-30 00:00:00 2024-10-26 00:00:00 Outpatient RECERTIFIC ATION [facility] [id number] 2024-10-26 00:00:00 DISCHARGE TO HOME OR SELF CARE INDEPENDEN T IN THE COMMUNITY HH OR [facility]- GOALS MET 100.00
--- OUTSIDE RECORDS SUMMARY | 2024-10-25 20:00 | XMS_ITS | Clinical Summary ---
Author Organization Unknown Care Team Providers Care White Sugar Syrup Operator Name Role Phone SUSAN ASPHALT STILL OPERATOR, FRANK Unavailable Unavailable ALISON PT, PEREZ Unavailable Unavailable TAM RN, AKI Unavailable Unavailable LAURA WILLIAMSONN, DOLLY Unavailable Unavaileric LERNER AUTO SERVICE REPRESENTATIVE, SHANE Unavailable Unavailable PAOLA OT, PRICILA Unavailable Unavailable ELSA RN, NAY Unavailable Unavailable TIM VALADEZ/CHELE, BLAKE Unavailable Un available Payers Payer Name Policy Type Policy Number Effective Date Expira tion Date MEDICARE.[facility].[facility] [id number] Problems Condition Name Condition Details Condition Category [...] 00 REPEATED FALLS Active 2023-06 00:00: 00 [place] (CURRENT) USE OF INSULIN Active 06-07 00:00: [...] 2023-06 00:00: 00 05-08 23:59 :00 No [id number] INFECTION 1 tablet DAILY 1 tablet DAILY (route: oral) Med Classific ation: Anti-Infe ctive Agents trazodone 50 mg tablet 2023-06 00:00: 00 05-12 23:59 :00 No [id number] SLEEP 1 tablet AT BEDTIME NEEDED 1 tablet AT BEDTIME NEEDED (route: oral) Med Classific ation: Central Nervous System Agents metoprolol tartrate 25 mg tablet 2023-06 00:00: 00 Yes [id number] CARDIAC 1 tablet 2 TIMES DAILY 1 tablet 2 TIMES DAILY (route: oral) Med Classific ation: Cardiovas cular Therapy Agents montelukast 10 mg tablet 2023-06 00:00: 00 Yes [id number] ALLERGIES 1 tablet DAILY 1 tablet DAILY (route: oral) Med Classific ation: Respirato ry Therapy Agents simvastatin 20 mg tablet 2023-06 00:00: 00 Yes [id number] HDL 1 tablet DAILY 1 tablet DAILY (route: oral) Med Classific ation: Cardiovas cular Therapy Agents fluoxetine 40 mg capsule 2023-06 00:00: 00 Yes [id number] DEPRESSION 1 capsule EVERY DAY 1 capsule EVERY DAY (route: oral) Med Classific ation: Central Nervous System Agents lamotrigine 200 mg tablet 2023-06 00:00: 00 Yes [id number] MACHINE FILLER 1 tablet DAILY 1 tablet DAILY (route: oral) Med Classific ation: Central Nervous System Agents Basaglar KwikPen U-100 Insulin 100 unit/mL (3 mL) subcutaneou s 2023-06 0- 00:00: 00 Yes [id number] DM 30 unit SUBCUTANEO USLY EVERY NIGHT AT BEDTIME 30 unit SUBCUTANEO USLY EVERY NIGHT AT BEDTIME (route: subcutaneo us) Med Classific ation: Endocrine levothyroxi ne 150 mcg tablet 2023-06 00:00: 00 Yes [id number] HYPOTHYROID ISM 1 tablet DAILY 1 tablet DAILY (route: oral) Med Classific ation: Endocrine losartan 100 mg tablet 2023-06 00:00: 00 Yes [id number] HTN 1 tablet DAILY 1 tablet DAILY (route: oral) Med Classific ation: Cardiovas cular Therapy Agents meclizine 25 mg tablet 2023-06 00:00: 00 Yes [id number] VERTIGO 1 tablet 3 TIMES DAILY 1 tablet 3 TIMES DAILY (route: oral) Med Classific ation: Gastroint estinal Therapy Agents ondansetron 4 mg disintegrat ing tablet 2023-06 00:00: 00 Yes [id number] NAUSEA 1 tablet EVERY 6 HOURS 1 tablet EVERY 6 HOURS (route: oral) Med Classific ation: Gastroint estinal Therapy Agents Advair Diskus 500 mcg-50 mcg/dose powder for inhalation 2023-06 00:00: 00 Yes [id number] ASTHMA, BREATHING 1 inhalat ion 2 TIMES DAILY 1 inhalation 2 TIMES DAILY (route: inhalation ) Med Classific ation: Respirato ry Therapy Agents furosemide 40 mg tablet 2023-06 00:00: 00 Yes [id number] EDEMA, WT GAIN 1 tablet NEEDED 1 tablet NEEDED (route: oral) Med Classific ation: Cardiovas cular Therapy Agents hydroxyzine HCl 25 mg tablet 2022-06 00:00: 00 Yes [id number] ANXIETY 1 tablet DAILY 1 tablet DAILY (route: oral) Med Classific ation: Central Nervous System Agents Jardiance 10 mg tablet 2023-06 2 00:00: 00 Yes [id number] BS 1 tablet DAILY 1 tablet DAILY (route: oral) Med Classific ation: Endocrine prednisone 20 mg tablet 2023-06 00:00: 00 05-18 23:59 :00 No [id number] BREATHING 2 tablet DAILY 2 tablet DAILY (route: oral) Med Classific ation: Endocrine spironolact one 25 mg tablet 2023-06 2 00:00: 00 Yes [id number] HEART 1 tablet DAILY 1 tablet DAILY (route: oral) Med Classific ation: Cardiovas cular Therapy Agents azithromyci n 250 mg tablet 2023-06 00:00: 00 05-21 23:59 :00 No [id number] BRONCHITIS 2 tablet DIRECTED 2 tablet DIRECTED (route: oral) Med Classific ation: Anti-Infe ctive Agents albuterol sulfate 0.63 mg/3 mL solution for nebulizatio n 2022-06 00:00: 00 Yes [id number] SOA Per instruc tions NEEDED Per instructio ns NEEDED (route: inhalation ) Med Classific ation: Respirato ry Therapy Agents bupropion HCl 75 mg tablet 09-26 00:00: 00 Yes [id number] DEPRESSION 1 tablet DAILY 1 tablet DAILY [...] DAVIS NP RN TO OBSERVE AND ASSESS, LINING CASER/HAT CHECKER TO OBSERVE FOR RISK FOR FALLS AND INSTRUCT IN FALL PREVENTION, HOME SAFETY, MEDICATION MANAGEMENT, INFECTION PREVENTION, AND NUTRITION MANAGEMENT. RN/LINING CASER/HAT CHECKER NURSE MAY PERFORM O2 SATURATION LEVEL ON ADMISSION AND PRN FOR DESAT FOR RN TO ASSESS/LINING CASER TO OBSERVE PATIENT, WITH NOTIFICATION TO THE PHYSICIAN IF SATURATION IS 90% IN THE ABSENCE OF MORE SPECIFIC PARAMETERS FROM THE PHYSICIAN. AGENCY MAY PERFORM A RESUMPTION OF CARE VISIT FOLLOWING ANY HOSPITAL ADMISSION. RN/LINING CASER/HAT CHECKER TO MONITOR CO-MORBID CONDITIONS LISTED ON THE PLAN OF CARE AND ANY NEW CONDITIONS THAT PRESENT THEMSELVES DURING THIS EPISODE TO IDENTIFY CHANGES AND INTERVENE TO MINIMIZE COMPLICATIONS. [code = RN TO OBSERVE, ASSESS, EVALUATE, AND DEVELOP AN INDIVIDUALIZED PLAN OF CARE. AGENCY MAY ACCEPT ORDERS FROM CONSULTING PHYSICIANS FRANK DAVIS ASPHALT STILL OPERATOR RN TO OBSERVE AND ASSESS, LINING CASER/HAT CHECKER TO OBSERVE FOR RISK FOR FALLS AND INSTRUCT IN FALL PREVENTION, HOME SAFETY, MEDICATION MANAGEMENT, INFECTION PREVENTION, AND NUTRITION MANAGEMENT. RN/LINING CASER/HAT CHECKER NURSE MAY PERFORM O2 SATURATION LEVEL ON ADMISSION AND PRN FOR DESAT FOR RN TO ASSESS/LINING CASER TO OBSERVE PATIENT, WITH NOTIFICATION TO THE PHYSICIAN IF SATURATION IS 90% IN THE ABSENCE OF MORE SPECIFIC PARAMETERS FROM THE PHYSICIAN. AGENCY MAY PERFORM A RESUMPTION OF CARE VISIT FOLLOWING ANY HOSPITAL ADMISSION. RN/LINING CASER/HAT CHECKER TO MONITOR CO-MORBID CONDITIONS LISTED ON THE PLAN OF CARE AND ANY NEW CONDITIONS THAT PRESENT THEMSELVES DURING THIS EPISODE TO IDENTIFY CHANGES AND INTERVENE TO MINIMIZE COMPLICATIONS.] Future Scheduled Test RISK FOR H OSPITALIZATION; RN TO ASSESS/TEACH, HAT CHECKER/LINING CASER TO OBSERVE/TEACH PATIENT/CAREGIVER ON RISK FOR HOSPITALIZATION/EMERGENCY ROOM VISITS, TEACH SIGNS AND SYMPTOMS THAT PUT PATIENT AT RISK, WHEN TO NOTIFY NURSE/PHYSICIAN OF COMPLICATIONS/DECLINE, AND WHEN TO CALL 911. [code = RISK FOR HOSPITALIZATION; RN TO ASSESS/TEACH, HAT CHECKER/LINING CASER TO OBSERVE/TEACH PATIENT/CAREGIVER ON RISK FOR HOSPITALIZATION/EMERGENCY ROOM VISITS, TEACH SIGNS AND SYMPTOMS THAT PUT PATIENT AT RISK, WHEN TO NOTIFY NURSE/PHYSICIAN OF COMPLICATIONS/DECLINE, AND WHEN TO CALL 911.] Future Scheduled Test CARDIOVASC ULAR SYSTEM; RN TO ASSESS/TEACH, LINING CASER/HAT CHECKER TO OBSERVE/TEACH RELATED TO ALTERED CARDIOVASCULAR STATUS TO MINIMIZE COMPLICATIONS AND REDUCE HOSPITALIZATION. [code = CARDIOVASCULAR SYSTEM; RN TO ASSESS/TEACH, LINING CASER/HAT CHECKER TO OBSERVE/TEACH RELATED TO ALTERED CARDIOVASCULAR STATUS TO MINIMIZE COMPLICATIONS AND REDUCE HOSPITALIZATION.] Future Scheduled Test HEART FAIL URE; RN TO ASSESS/TEACH, LINING CASER/HAT CHECKER TO OBSERVE/TEACH CARDIOPULMONARY SYSTEM TO IDENTIFY SIGNS [...] [code = HEART FAILURE; RN TO ASSESS/TEACH, LINING CASER/HAT CHECKER TO OBSERVE/TEACH CARDIOPULMONARY SYSTEM TO IDENTIFY SIGNS [...] SYSTEM MANAGEMENT; RN TO ASSESS AND TEACH, LINING CASER/HAT CHECKER TO OBSERVE AND TEACH RELATED TO ALTERED RESPIRATORY STATUS TO MINIMIZE COMPLICATIONS AND REDUCE HOSPITALIZATION. [code = RESPIRATORY SYSTEM MANAGEMENT; RN TO ASSESS AND TEACH, LINING CASER/HAT CHECKER TO OBSERVE AND TEACH RELATED TO ALTERED RESPIRATORY STATUS TO MINIMIZE COMPLICATIONS AND REDUCE HOSPITALIZATION.] Future Scheduled Test ASTHMA MAN AGEMENT; RN TO ASSESS AND TEACH, LINING CASER/HAT CHECKER TO OBSERVE AND TEACH ASTHMA MANAGEMENT AND PROVIDE EARLY INTERVENTIONS TO MINIMIZE RISK OF HOSPITALIZATION [code = ASTHMA MANAGEMENT; RN TO ASSESS AND TEACH, LINING CASER/HAT CHECKER TO OBSERVE AND TEACH ASTHMA MANAGEMENT AND PROVIDE EARLY INTERVENTIONS TO MINIMIZE RISK OF HOSPITALIZATION] Future Scheduled Test DIABETES M ANAGEMENT; RN TO ASSESS AND TEACH, HAT CHECKER/LINING CASER TO OBSERVE AND TEACH INSTRUCTIONS OF DIABETIC CARE TO INCLUDE: DIET DIABETIC SKIN CARE, SIGNS AND SYMPTOMS OF HYPO/HYPERGLYCEMIA, PROPER ADMINISTRATION OF DIABETIC MEDICATION. RN/HAT CHECKER/LINING CASER TO INSTRUCT ON DIABETIC FOOT CARE AND MONITOR FOR SKIN LESIONS ON LOWER EXTREMITIES. BLOOD GLUCOSE TESTING TID FREQ. RN TO ASSESS AND TEACH, HAT CHECKER/LINING CASER TO OBSERVE AND TEACH PATIENT/CAREGIVER ABILITY TO PERFORM AND RECORD BLOOD GLUCOSE TESTING ORDERED AND TO REPORT ABNORMAL FINDINGS TO PHYSICIAN. RN/HAT CHECKER/LINING CASER MAY PERFORM BLOOD GLUCOSE TEST NEEDED. RN/HAT CHECKER/LINING CASER TO REPORT TO PHYSICIAN BLOOD GLUCOSE READINGS GREATER THAN 60 OR LESS THAN 300 RN/HAT CHECKER/LINING CASER TO INSTRUCT PATIENT ON IMPORTANCE OF HGBA1C MONITORING, KIDNEY FUNCTION TEST, EYE AND FOOT EXAMS. [code = DIABETES MANAGEMENT; RN TO ASSESS AND TEACH, HAT CHECKER/LINING CASER TO OBSERVE AND TEACH INSTRUCTIONS OF DIABETIC CARE TO INCLUDE: DIET DIABETIC SKIN CARE, SIGNS AND SYMPTOMS OF HYPO/HYPERGLYCEMIA, PROPER ADMINISTRATION OF DIABETIC MEDICATION. RN/HAT CHECKER/LINING CASER TO INSTRUCT ON DIABETIC FOOT CARE AND MONITOR FOR SKIN LESIONS ON LOWER EXTREMITIES. BLOOD GLUCOSE TESTING TID FREQ. RN TO ASSESS AND TEACH, HAT CHECKER/LINING CASER TO OBSERVE AND TEACH PATIENT/CAREGIVER ABILITY TO PERFORM AND RECORD BLOOD GLUCOSE TESTING ORDERED AND TO REPORT ABNORMAL FINDINGS TO PHYSICIAN. RN/HAT CHECKER/LINING CASER MAY PERFORM BLOOD GLUCOSE TEST NEEDED. RN/HAT CHECKER/LINING CASER TO REPORT TO PHYSICIAN BLOOD GLUCOSE READINGS GREATER THAN 60 OR LESS THAN 300 RN/HAT CHECKER/LINING CASER TO INSTRUCT PATIENT ON IMPORTANCE OF HGBA1C MONITORING, KIDNEY FUNCTION TEST, EYE AND FOOT EXAMS.] Future Scheduled Test FALL REDUC TION MANAGEMENT; RN TO ASSESS AND OBSERVE, LINING CASER/HAT CHECKER TO OBSERVE FALL RISK FACTORS AND EDUCATE PATIENT/CAREGIVER ON STRATEGIES TO MINIMIZE THE RISK OF FALLING. [code = FALL REDUCTION MANAGEMENT; RN TO ASSESS AND OBSERVE, LINING CASER/HAT CHECKER TO OBSERVE FALL RISK FACTORS AND EDUCATE PATIENT/CAREGIVER ON STRATEGIES TO MINIMIZE THE RISK OF FALLING.] Future Scheduled Test PRN VISITS ; NUMBER OF RN/LINING CASER/HAT CHECKER VISITS: 2 RN/LINING CASER/HAT CHECKER TO PERFORM: ASSESSMENT FOR THE FOLLOWING REASONS: EXACERBATION OF HF INCLUDING WEIGHT GAIN, SOB [code = PRN VISITS; NUMBER OF RN/LINING CASER/HAT CHECKER VISITS: 2 RN/LINING CASER/HAT CHECKER TO PERFORM: ASSESSMENT FOR THE FOLLOWING REASONS: [...] End Date/Time Encounter Type Admission Type [facility] Care Department Encounter ID Discharge Date Discharge Status Discharge Condition Discharge Reason Percent Goals Met 2024-08-30 00:00:00 2024-10-26 00:00:00 Outpatient RECERTIFIC ATION NAY HUNTER [facility] [id number] 2024-10-26 00:00:00 DISCHARGE TO HOME OR SELF CARE INDEPENDEN T IN THE COMM[facility]ITY HH OR [facility]- GOALS MET 100.00
--- OUTSIDE RECORDS SUMMARY | 2024-10-25 20:00 | XMS_ITS | Clinical Summary ---
Author Organization Unknown Care Team Providers Care Reconstructive Dentist Name Role Phone SUSAN CDL TEAM TRUCK DRIVER, FRANK Unavailable Unavailable ALISON PT, PEREZ Unavailable Unavailable TAM RN, AKI Unavailable Unavailable TIM VALADEZ/CHELE, BLAKE Unavailable Un available PAOLA OT, PRICILA Unavailable Unavailable LAURA STOCK HANDLER FLOORPERSON, DOLLY Unavailable Unavaileric NICHOLSONN GLOVE EXAMINER, SHANE Unavailable Unavailable ELSA RN, NAY Unavailable Unavailable Payers Payer Name Policy Type Policy Number Effective Date Expira tion Date MEDICARE.[facility] [id number] Problems Condition Name Condition Details Condition Category [...] 00 REPEATED FALLS Active 2023-06 00:00: 00 CUSTODIAL (CURRENT) USE OF INSULIN Active 06-07 00:00: [...] 2023-06 00:00: 00 05-08 23:59 :00 No [id number] INFECTION 1 tablet DAILY 1 tablet DAILY (route: oral) Med Classific ation: Anti-Infe ctive Agents trazodone 50 mg tablet 2023-06 00:00: 00 05-12 23:59 :00 No [id number] SLEEP 1 tablet AT BEDTIME NEEDED 1 tablet AT BEDTIME NEEDED (route: oral) Med Classific ation: Central Nervous System Agents metoprolol tartrate 25 mg tablet 2023-06 00:00: 00 Yes [id number] CARDIAC 1 tablet 2 TIMES DAILY 1 tablet 2 TIMES DAILY (route: oral) Med Classific ation: Cardiovas cular Therapy Agents montelukast 10 mg tablet 2023-06 00:00: 00 Yes [id number] ALLERGIES 1 tablet DAILY 1 tablet DAILY (route: oral) Med Classific ation: Respirato ry Therapy Agents simvastatin 20 mg tablet 2023-06 00:00: 00 Yes [id number] HDL 1 tablet DAILY 1 tablet DAILY (route: oral) Med Classific ation: Cardiovas cular Therapy Agents fluoxetine 40 mg capsule 2023-06 00:00: 00 Yes [id number] DEPRESSION 1 capsule EVERY DAY 1 capsule EVERY DAY (route: oral) Med Classific ation: Central Nervous System Agents lamotrigine 200 mg tablet 2023-06 00:00: 00 Yes [id number] 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 1 tablet DAILY 1 tablet DAILY (route: oral) Med Classific ation: Central Nervous System Agents Basaglar KwikPen U-100 Insulin 100 unit/mL (3 mL) subcutaneou s 2023-06 0- 00:00: 00 Yes [id number] DM 30 unit SUBCUTANEO USLY EVERY NIGHT AT BEDTIME 30 unit SUBCUTANEO USLY EVERY NIGHT AT BEDTIME (route: subcutaneo us) Med Classific ation: Endocrine levothyroxi ne 150 mcg tablet 2023-06 00:00: 00 Yes [id number] HYPOTHYROID ISM 1 tablet DAILY 1 tablet DAILY (route: oral) Med Classific ation: Endocrine losartan 100 mg tablet 2023-06 00:00: 00 Yes [id number] HTN 1 tablet DAILY 1 tablet DAILY (route: oral) Med Classific ation: Cardiovas cular Therapy Agents meclizine 25 mg tablet 2023-06 00:00: 00 Yes [id number] VERTIGO 1 tablet 3 TIMES DAILY 1 tablet 3 TIMES DAILY (route: oral) Med Classific ation: Gastroint estinal Therapy Agents ondansetron 4 mg disintegrat ing tablet 2023-06 00:00: 00 Yes [id number] NAUSEA 1 tablet EVERY 6 HOURS 1 tablet EVERY 6 HOURS (route: oral) Med Classific ation: Gastroint estinal Therapy Agents Advair Diskus 500 mcg-50 mcg/dose powder for inhalation 2023-06 00:00: 00 Yes [id number] ASTHMA, BREATHING 1 inhalat ion 2 TIMES DAILY 1 inhalation 2 TIMES DAILY (route: inhalation ) Med Classific ation: Respirato ry Therapy Agents furosemide 40 mg tablet 2023-06 00:00: 00 Yes [id number] EDEMA, WT GAIN 1 tablet NEEDED 1 tablet NEEDED (route: oral) Med Classific ation: Cardiovas cular Therapy Agents hydroxyzine HCl 25 mg tablet 2022-06 00:00: 00 Yes [id number] ANXIETY 1 tablet DAILY 1 tablet DAILY (route: oral) Med Classific ation: Central Nervous System Agents Jardiance 10 mg tablet 2023-06 2 00:00: 00 Yes [id number] BS 1 tablet DAILY 1 tablet DAILY (route: oral) Med Classific ation: Endocrine prednisone 20 mg tablet 2023-06 00:00: 00 05-18 23:59 :00 No [id number] BREATHING 2 tablet DAILY 2 tablet DAILY (route: oral) Med Classific ation: Endocrine spironolact one 25 mg tablet 2023-06 2 00:00: 00 Yes [id number] HEART 1 tablet DAILY 1 tablet DAILY (route: oral) Med Classific ation: Cardiovas cular Therapy Agents azithromyci n 250 mg tablet 2023-06 00:00: 00 05-21 23:59 :00 No [id number] BRONCHITIS 2 tablet DIRECTED 2 tablet DIRECTED (route: oral) Med Classific ation: Anti-Infe ctive Agents albuterol sulfate 0.63 mg/3 mL solution for nebulizatio n 2022-06 00:00: 00 Yes [id number] SOA Per instruc tions NEEDED Per instructio ns NEEDED (route: inhalation ) Med Classific ation: Respirato ry Therapy Agents bupropion HCl 75 mg tablet 09-26 00:00: 00 Yes [id number] DEPRESSION 1 tablet DAILY 1 tablet DAILY [...] DAVIS NP RN TO OBSERVE AND ASSESS, STOCK HANDLER FLOORPERSON/MAP DRAFTER TO OBSERVE FOR RISK FOR FALLS AND INSTRUCT IN FALL PREVENTION, HOME SAFETY, MEDICATION MANAGEMENT, INFECTION PREVENTION, AND NUTRITION MANAGEMENT. RN/STOCK HANDLER FLOORPERSON/MAP DRAFTER NURSE MAY PERFORM O2 SATURATION LEVEL ON ADMISSION AND PRN FOR DESAT FOR RN TO ASSESS/STOCK HANDLER FLOORPERSON TO OBSERVE PATIENT, WITH NOTIFICATION TO THE PHYSICIAN IF SATURATION IS 90% IN THE ABSENCE OF MORE SPECIFIC PARAMETERS FROM THE PHYSICIAN. AGENCY MAY PERFORM A RESUMPTION OF CARE VISIT FOLLOWING ANY HOSPITAL ADMISSION. RN/STOCK HANDLER FLOORPERSON/MAP DRAFTER TO MONITOR CO-MORBID CONDITIONS LISTED ON THE PLAN OF CARE AND ANY NEW CONDITIONS THAT PRESENT THEMSELVES DURING THIS EPISODE TO IDENTIFY CHANGES AND INTERVENE TO MINIMIZE COMPLICATIONS. [code = RN TO OBSERVE, ASSESS, EVALUATE, AND DEVELOP AN INDIVIDUALIZED PLAN OF CARE. AGENCY MAY ACCEPT ORDERS FROM CONSULTING PHYSICIANS FRANK DAVIS CDL TEAM TRUCK DRIVER RN TO OBSERVE AND ASSESS, STOCK HANDLER FLOORPERSON/MAP DRAFTER TO OBSERVE FOR RISK FOR FALLS AND INSTRUCT IN FALL PREVENTION, HOME SAFETY, MEDICATION MANAGEMENT, INFECTION PREVENTION, AND NUTRITION MANAGEMENT. RN/STOCK HANDLER FLOORPERSON/MAP DRAFTER NURSE MAY PERFORM O2 SATURATION LEVEL ON ADMISSION AND PRN FOR DESAT FOR RN TO ASSESS/STOCK HANDLER FLOORPERSON TO OBSERVE PATIENT, WITH NOTIFICATION TO THE PHYSICIAN IF SATURATION IS 90% IN THE ABSENCE OF MORE SPECIFIC PARAMETERS FROM THE PHYSICIAN. AGENCY MAY PERFORM A RESUMPTION OF CARE VISIT FOLLOWING ANY HOSPITAL ADMISSION. RN/STOCK HANDLER FLOORPERSON/MAP DRAFTER TO MONITOR CO-MORBID CONDITIONS LISTED ON THE PLAN OF CARE AND ANY NEW CONDITIONS THAT PRESENT THEMSELVES DURING THIS EPISODE TO IDENTIFY CHANGES AND INTERVENE TO MINIMIZE COMPLICATIONS.] Future Scheduled Test RISK FOR H OSPITALIZATION; RN TO ASSESS/TEACH, MAP DRAFTER/STOCK HANDLER FLOORPERSON TO OBSERVE/TEACH PATIENT/CAREGIVER ON RISK FOR HOSPITALIZATION/EMERGENCY ROOM VISITS, TEACH SIGNS AND SYMPTOMS THAT PUT PATIENT AT RISK, WHEN TO NOTIFY NURSE/PHYSICIAN OF COMPLICATIONS/DECLINE, AND WHEN TO CALL 911. [code = RISK FOR HOSPITALIZATION; RN TO ASSESS/TEACH, MAP DRAFTER/STOCK HANDLER FLOORPERSON TO OBSERVE/TEACH PATIENT/CAREGIVER ON RISK FOR HOSPITALIZATION/EMERGENCY ROOM VISITS, TEACH SIGNS AND SYMPTOMS THAT PUT PATIENT AT RISK, WHEN TO NOTIFY NURSE/PHYSICIAN OF COMPLICATIONS/DECLINE, AND WHEN TO CALL 911.] Future Scheduled Test CARDIOVASC ULAR SYSTEM; RN TO ASSESS/TEACH, STOCK HANDLER FLOORPERSON/MAP DRAFTER TO OBSERVE/TEACH RELATED TO ALTERED CARDIOVASCULAR STATUS TO MINIMIZE COMPLICATIONS AND REDUCE HOSPITALIZATION. [code = CARDIOVASCULAR SYSTEM; RN TO ASSESS/TEACH, STOCK HANDLER FLOORPERSON/MAP DRAFTER TO OBSERVE/TEACH RELATED TO ALTERED CARDIOVASCULAR STATUS TO MINIMIZE COMPLICATIONS AND REDUCE HOSPITALIZATION.] Future Scheduled Test HEART FAIL URE; RN TO ASSESS/TEACH, STOCK HANDLER FLOORPERSON/MAP DRAFTER TO OBSERVE/TEACH CARDIOPULMONARY SYSTEM TO IDENTIFY SIGNS [...] [code = HEART FAILURE; RN TO ASSESS/TEACH, STOCK HANDLER FLOORPERSON/MAP DRAFTER TO OBSERVE/TEACH CARDIOPULMONARY SYSTEM TO IDENTIFY SIGNS [...] SYSTEM MANAGEMENT; RN TO ASSESS AND TEACH, STOCK HANDLER FLOORPERSON/MAP DRAFTER TO OBSERVE AND TEACH RELATED TO ALTERED RESPIRATORY STATUS TO MINIMIZE COMPLICATIONS AND REDUCE HOSPITALIZATION. [code = RESPIRATORY SYSTEM MANAGEMENT; RN TO ASSESS AND TEACH, STOCK HANDLER FLOORPERSON/MAP DRAFTER TO OBSERVE AND TEACH RELATED TO ALTERED RESPIRATORY STATUS TO MINIMIZE COMPLICATIONS AND REDUCE HOSPITALIZATION.] Future Scheduled Test ASTHMA MAN AGEMENT; RN TO ASSESS AND TEACH, STOCK HANDLER FLOORPERSON/MAP DRAFTER TO OBSERVE AND TEACH ASTHMA MANAGEMENT AND PROVIDE EARLY INTERVENTIONS TO MINIMIZE RISK OF HOSPITALIZATION [code = ASTHMA MANAGEMENT; RN TO ASSESS AND TEACH, STOCK HANDLER FLOORPERSON/MAP DRAFTER TO OBSERVE AND TEACH ASTHMA MANAGEMENT AND PROVIDE EARLY INTERVENTIONS TO MINIMIZE RISK OF HOSPITALIZATION] Future Scheduled Test DIABETES M ANAGEMENT; RN TO ASSESS AND TEACH, MAP DRAFTER/STOCK HANDLER FLOORPERSON TO OBSERVE AND TEACH INSTRUCTIONS OF DIABETIC CARE TO INCLUDE: DIET DIABETIC SKIN CARE, SIGNS AND SYMPTOMS OF HYPO/HYPERGLYCEMIA, PROPER ADMINISTRATION OF DIABETIC MEDICATION. RN/MAP DRAFTER/STOCK HANDLER FLOORPERSON TO INSTRUCT ON DIABETIC FOOT CARE AND MONITOR FOR SKIN LESIONS ON LOWER EXTREMITIES. BLOOD GLUCOSE TESTING TID FREQ. RN TO ASSESS AND TEACH, MAP DRAFTER/STOCK HANDLER FLOORPERSON TO OBSERVE AND TEACH PATIENT/CAREGIVER ABILITY TO PERFORM AND RECORD BLOOD GLUCOSE TESTING ORDERED AND TO REPORT ABNORMAL FINDINGS TO PHYSICIAN. RN/MAP DRAFTER/STOCK HANDLER FLOORPERSON MAY PERFORM BLOOD GLUCOSE TEST NEEDED. RN/MAP DRAFTER/STOCK HANDLER FLOORPERSON TO REPORT TO PHYSICIAN BLOOD GLUCOSE READINGS GREATER THAN 60 OR LESS THAN 300 RN/MAP DRAFTER/STOCK HANDLER FLOORPERSON TO INSTRUCT PATIENT ON IMPORTANCE OF HGBA1C MONITORING, KIDNEY FUNCTION TEST, EYE AND FOOT EXAMS. [code = DIABETES MANAGEMENT; RN TO ASSESS AND TEACH, MAP DRAFTER/STOCK HANDLER FLOORPERSON TO OBSERVE AND TEACH INSTRUCTIONS OF DIABETIC CARE TO INCLUDE: DIET DIABETIC SKIN CARE, SIGNS AND SYMPTOMS OF HYPO/HYPERGLYCEMIA, PROPER ADMINISTRATION OF DIABETIC MEDICATION. RN/MAP DRAFTER/STOCK HANDLER FLOORPERSON TO INSTRUCT ON DIABETIC FOOT CARE AND MONITOR FOR SKIN LESIONS ON LOWER EXTREMITIES. BLOOD GLUCOSE TESTING TID FREQ. RN TO ASSESS AND TEACH, MAP DRAFTER/STOCK HANDLER FLOORPERSON TO OBSERVE AND TEACH PATIENT/CAREGIVER ABILITY TO PERFORM AND RECORD BLOOD GLUCOSE TESTING ORDERED AND TO REPORT ABNORMAL FINDINGS TO PHYSICIAN. RN/MAP DRAFTER/STOCK HANDLER FLOORPERSON MAY PERFORM BLOOD GLUCOSE TEST NEEDED. RN/MAP DRAFTER/STOCK HANDLER FLOORPERSON TO REPORT TO PHYSICIAN BLOOD GLUCOSE READINGS GREATER THAN 60 OR LESS THAN 300 RN/MAP DRAFTER/STOCK HANDLER FLOORPERSON TO INSTRUCT PATIENT ON IMPORTANCE OF HGBA1C MONITORING, KIDNEY FUNCTION TEST, EYE AND FOOT EXAMS.] Future Scheduled Test FALL REDUC TION MANAGEMENT; RN TO ASSESS AND OBSERVE, STOCK HANDLER FLOORPERSON/MAP DRAFTER TO OBSERVE FALL RISK FACTORS AND EDUCATE PATIENT/CAREGIVER ON STRATEGIES TO MINIMIZE THE RISK OF FALLING. [code = FALL REDUCTION MANAGEMENT; RN TO ASSESS AND OBSERVE, STOCK HANDLER FLOORPERSON/MAP DRAFTER TO OBSERVE FALL RISK FACTORS AND EDUCATE PATIENT/CAREGIVER ON STRATEGIES TO MINIMIZE THE RISK OF FALLING.] Future Scheduled Test PRN VISITS ; NUMBER OF RN/STOCK HANDLER FLOORPERSON/MAP DRAFTER VISITS: 2 RN/STOCK HANDLER FLOORPERSON/MAP DRAFTER TO PERFORM: ASSESSMENT FOR THE FOLLOWING REASONS: EXACERBATION OF HF INCLUDING WEIGHT GAIN, SOB [code = PRN VISITS; NUMBER OF RN/STOCK HANDLER FLOORPERSON/MAP DRAFTER VISITS: 2 RN/STOCK HANDLER FLOORPERSON/MAP DRAFTER TO PERFORM: ASSESSMENT FOR THE FOLLOWING REASONS: [...] End Date/Time Encounter Type Admission Type Attending [facility] Care Facility Care Department Encounter ID Discharge Date Discharge Status Discharge Condition Discharge Reason Percent Goals Met 2024-08-30 00:00:00 2024-10-26 00:00:00 Outpatient RECERTIFIC ATION [facility] [id number] 2024-10-26 00:00:00 DISCHARGE TO HOME OR SELF CARE INDEPENDEN T IN THE COMMUNITY HH OR [facility]- GOALS MET 100.00
[2024-12-02] VITALS (10 sets, daily range): BP systolic 131–167; BP diastolic 67–82; PULSE 83–109; RESP 14–16; TEMP 36.6–37.4; O2SAT 91–95; BMI 25.3; BMI 24.4
--- OUTSIDE RECORDS SUMMARY | 2024-12-02 20:42 | XMS_ITS | Clinical Summary ---
Author Organization [employer] Address [address] [place] [address] Care Team Providers Care Manager Clinical Informatics Name Role Phone Jessie Fine MD Unavailable [phone] Allergies Active Allergy Reactions Criticality Noted [...] drink = 0.6 oz pur e alcohol) Food Insecurity Answer Date Recorded Food run [...] Date Kt rded Speak language other than Kitt[place] at home Not on file 06/16/2023 Want help with school or training Not on file 06/16/2023 Substance Use Answer Date Recorded Used [...] 75 06/23/2022 11:07 AM EST Temperature 36.4 C (97.5 F) 06/23/2022 11:07 AM EST Respiratory Rate 18 06/23/2022 11:07 AM EST Oxygen Saturation 95% 06/23/2022 11:07 AM EST Inhaled Oxygen Concentration - - Weight 74.4 kg (164 lb) 06/23/2022 11:07 AM EST Height 170.2 cm (5' 7 ) 05/04/2022 10:59 AM EST Body Mass Index 25.69 05/04/2022 10:59 AM EST Plan of Treatment Health Maintenance Due Date Last Done Comments Medicare Initial AWV [id number] DXA SCAN 1950 Depression Screening (12+) 1960 Hepatitis C Screening 01/16/1966 Shingles Vaccine (Zoster) (1 of 2) 01/16/1998 DTAP/TDAP/TD VACCINES (2 - Td or Tdap) 12/02/2009 Respiratory Syncytial Virus (RSV) Adult or (1 - 1-dose 75+ series) 01/16/2023 Tobacco Cessation Counseling and Screening (12+) 06/23/2023 06/23/2022 COVID-19 VACCINE ( season) 02/06/202407/2020, 08/15/2020 Falls Risk Screening 06/07/2024 Influenza Vaccine (Season Ended) 2025 04/14/20 19, 04/14/2019 Pneumococcal 50+ years Completed 04/07/2016, 2014 Insurance MEDICARE PART A B Care Teams Manager Clinical Informatics Relationship Specialty Start Date End Date Jessie Fine MD [address] [place] [address] [place] [phone] Referring Physician Hematology and Oncology 10/16/22
--- OUTSIDE RECORDS SUMMARY | 2024-12-02 20:42 | XMS_ITS | Data Portability ---
Author Organization [facility], [facility] [place] [facility] Address [address] [facility] [address] [place] [address] Care Team Providers Care Batter Mixer Name Role Phone FRANK DAVIS Primary Care [...] symptoms recur or if new symptoms arise. Not available 10/13/2016 22:54:56 Plan of Treatment Reminders Order Date Submit Date Provider Last Modified By Organization Details Last Modified Time Details Appointments None recorded. Lab CK (creatine kinase), total, serum 2018 019 [facility], [address] [place] [address], [phone], 9 11:29:04 C reactive protein, QN, serum or plasma 2018 019 [facility], [address] [place] [address], [id number], 9 11:29:06 ESR (erythrocyt e sedimentati on rate), blood 2018 019 [facility], [address] [place] [address], [address], 9 12:49:03 PRISCILLA (antinuclea r antibodies) panel, serum 2018 019 [facility], [address] [place] [address], [address], 9 15:01:11 CBC w/ auto diff 2016 017 [facility], [address] [place] [address], [address], 7 15:22:16 CMP, serum or plasma 2016 017 [facility], [address] [place] [address], [address], 7 15:19:54 TSH, serum or plasma 2016 017 [facility], [address] [place] [address], [address], 7 15:29:53 T4, free, serum 2016 017 [facility], [address] [place] [address], [address], 7 15:28:09 vitamin B1 (thiamine), blood 2016 017 [facility], [address] [place] [address], [address], 7 09:19:46 vitamin B12, serum 2016 017 [facility], [address] [place] [address], [address], 7 15:39:29 Referral None recorded. Procedures None recorded. Surgeries None recorded. Imaging XR, hip, bilateral, 2 view 2018 019 [facility], [address] [place] [address], [place], [address], 9 11:04:26 XR, knee, 3 view 2018 019 [facility], [address] [place], [address], 9 11:03:46 Medication Orders None recorded. Patient TargetsNo targets recorded. Patient Instructions Encounter Date Encounter Id Patient Instructions Last Modified By Organization Details Last Modified Time 04/17/2019 [id number] osteoarthritis: care instructions Not available 04/17/2019 10:28:04 06/05/2019 [id number] osteoarthritis: care instructions Not available 06/05/2019 15:55:19 Reason for Referral None Reported. Results Created Date Observation Date Name Description Value Unit Range Abnormal Flag Note LastModifiedBy Organization Detail LastModifiedTime 10/14/19 17 10/13/2016 CMP, serum or plasm a glucose 97 mg/dL 74-100 normal Not Available [facility] [address] [place] [address], [phone], 10/13/2016 15:19:54 10/14/19 17 10/13/2016 CMP, serum or plasm a blood urea nitrogen 9 mg/dL 6-20 normal Not Available [facility] [address] [place] [address], [address], 10/13/2016 15:19:54 10/14/19 17 10/13/2016 CMP, serum or plasm a creatinine 0.65 mg/dL 0.50-0 .95 normal Not Available [facility] [address] [place] [address], [address], 10/13/2016 15:19:54 10/14/19 17 10/13/2016 CMP, serum or plasm a BUN/creatini ne ratio 14 (calc ) 10-20 normal Not Available [facility] [address] [place] [address], [address], 10/13/2016 15:19:54 10/14/19 17 10/13/2016 CMP, serum or plasm a 105 >= 60 normal Not Available [facility] [address] [place] [address], [phone], 10/13/2016 15:19:54 10/14/19 17 10/13/2016 CMP, serum [...] s or longe r. . Not Available [facility] [address] [place] [address], [address], 10/13/2016 15:19:54 10/14/19 17 10/13/2016 CMP, serum or plasm a sodium 139 mmol/ L 136-14 5 normal Not Available [facility] [address] [place] [address], [address], 10/13/2016 15:19:54 10/14/19 17 10/13/2016 CMP, serum or plasm a potassium 3.8 mmol/ L 3.4-5. 0 normal Not Available [facility] [address] [place] [address], [address], 10/13/2016 15:19:54 10/14/19 17 10/13/2016 CMP, serum or plasm a chloride 99 mmol/ L 98-107 normal Not Available [facility] [address] [place] [address], [address], 10/13/2016 15:19:54 10/14/19 17 10/13/2016 CMP, serum or plasm a carbon dioxide 27 mmol/ L 20-32 normal Not Available [facility] [address] [place] [address], [address], 10/13/2016 15:19:54 10/14/19 17 10/13/2016 CMP, serum or plasm a anion gap 13 (calc ) 7-19 normal Not Available [facility] [address] [place] [address], [address], 10/13/2016 15:19:54 10/14/19 17 10/13/2016 CMP, serum or plasm a calcium 9.1 mg/dL 8.6-10 .2 normal Not Available [facility] [address] [place] [address], [address], 10/13/2016 15:19:54 10/14/19 17 10/13/2016 CMP, serum or plasm a total protein 7.8 g/dL 6.4-8. 3 normal Not Available [facility] [address] [place] [address], [address], 10/13/2016 15:19:54 10/14/19 17 10/13/2016 CMP, serum or plasm a albumin 4.0 g/dL 3.5-5. 2 normal Not Available [facility] [address] [place] [address], [address], 10/13/2016 15:19:54 10/14/19 17 10/13/2016 CMP, serum or plasm a globulin 3.8 g/dL_ calc 1.5-4. 5 normal Not Available [facility] [address] [place] [address], [address], 10/13/2016 15:19:54 10/14/19 17 10/13/2016 CMP, serum or plasm a albumin/glob ulin ratio 1.1 calc 1.1-2. 5 normal Not Available [facility] [address] [place] [address], [address], 10/13/2016 15:19:54 10/14/19 17 10/13/2016 CMP, serum or plasm a bilirubin, total 0.3 mg/dL 0.1-1. 2 normal Not Available [facility] [address] [place] [address], [address], 10/13/2016 15:19:54 10/14/19 17 10/13/2016 CMP, serum or plasm a alkaline phosphatase 51 U/L 35-105 normal Not Available [facility] [address] [place] [address], [address], 10/13/2016 15:19:54 10/14/19 17 10/13/2016 CMP, serum or plasm a AST 17 U/L 0-32 normal Not Available [facility] [address] [place] [address], [address], 10/13/2016 15:19:54 10/14/19 17 10/13/2016 CMP, serum or plasm a ALT 11 U/L 0-33 normal Not Available [facility] [address] [place] [address], [address], 10/13/2016 15:19:54 10/14/19 17 10/13/2016 CBC w/ auto diff white blood cells 11.1 K/uL 3.8-10 .8 high Not Available [facility] [address] [place] [address], [address], 10/13/2016 15:22:16 10/14/19 17 10/13/2016 CBC w/ auto diff red blood cells 4.15 M/uL 3.80-5 .20 normal Not Available [facility] [address] [place] [address], [address], 10/13/2016 15:22:16 10/14/19 17 10/13/2016 CBC w/ auto diff hemoglobin 13.0 g/dL 12.0-1 6.0 normal Not Available [facility] [address] [place] [address], [address], 10/13/2016 15:22:16 10/14/19 17 10/13/2016 CBC w/ auto diff hematocrit 37.7 % 35.0-4 7.0 normal Not Available [facility] [address] [place] [address], [address], 10/13/2016 15:22:16 10/14/19 17 10/13/2016 CBC w/ auto diff MCV 91 fL 80-100 normal Not Available [facility] [address] [place] [address], [address], 10/13/2016 15:22:16 10/14/19 17 10/13/2016 CBC w/ auto diff MCH 31 pg 26-35 normal Not Available [facility] [address] [place] [address], [address], 10/13/2016 15:22:16 10/14/19 17 10/13/2016 CBC w/ auto diff MCHC 35 g/dL 32-36 normal Not Available [facility] [address] [place] [address], [address], 10/13/2016 15:22:16 10/14/19 17 10/13/2016 CBC w/ auto diff RDW 12.8 % 11.0-1 5.0 normal Not Available [facility] [address] [place] [address], [address], 10/13/2016 15:22:16 10/14/19 17 10/13/2016 CBC w/ auto diff MPV 7.2 fL 6.2-10 .5 normal Not Available [facility] [address] [place] [address], [address], 10/13/2016 15:22:16 10/14/19 17 10/13/2016 CBC w/ auto diff platelet count 216 K/uL 130-40 0 normal Not Available [facility] [address] [place] [address], [address], 10/13/2016 15:22:16 10/14/19 17 10/13/2016 CBC w/ auto diff neutrophil,a bsolute 5.3 K/uL 1.6-8. 4 normal Not Available [facility] [address] [place] [address], [address], 10/13/2016 15:22:16 10/14/19 17 10/13/2016 CBC w/ auto diff lymphocyte,a bsolute 4.2 K/uL 0.4-5. 1 normal Not Available [facility] [address] [place] [address], [address], 10/13/2016 15:22:16 10/14/19 17 10/13/2016 CBC w/ auto diff monocyte,abs olute 0.9 K/uL 0.0-1. 2 normal Not Available [facility] [address] [place] [address], [address], 10/13/2016 15:22:16 10/14/19 17 10/13/2016 CBC w/ auto diff eosinophil,a bsolute 0.6 K/uL 0.0-0. 8 normal Not Available [facility] [address] [place] [address], [address], 10/13/2016 15:22:16 10/14/19 17 10/13/2016 CBC w/ auto diff basophil,abs olute 0.1 K/uL 0.0-0. 3 normal Not Available [facility] [address] [place] [address], [address], 10/13/2016 15:22:16 10/14/19 17 10/13/2016 CBC w/ auto diff % neutrophils 48.0 % 42.0-7 8.0 normal Not Available [facility] [address] [place] [address], [address], 10/13/2016 15:22:16 10/14/19 17 10/13/2016 CBC w/ auto diff % lymphocytes 37.7 % 11.0-4 7.0 normal Not Available [facility] [address] [place] [address], [address], 10/13/2016 15:22:16 10/14/19 17 10/13/2016 CBC w/ auto diff % monocytes 8.4 % 0.0-11 .0 normal Not Available [facility] [address] [place] [address], [address], 10/13/2016 15:22:16 10/14/19 17 10/13/2016 CBC w/ auto diff % eosinophils 5.3 % 0.0-7. 0 normal Not Available [facility] [address] [place] [address], [address], 10/13/2016 15:22:16 10/14/19 17 10/13/2016 CBC w/ auto diff % basophils 0.6 % 0.0-3. 0 normal Not Available [facility] [address] [place] [address], [address], 10/13/2016 15:22:16 10/14/19 17 10/13/2016 CBC w/ auto diff nucleated red cells 0.0 % 0.0-0. 9 normal Not Available [facility] [address] [place] [address], [address], 10/13/2016 15:22:16 10/14/19 17 10/13/2016 CBC w/ auto diff nucleated RBCs, absolute 0.00 K/uL not estab. normal Not Available [facility] [address] [place] [address], [address], 10/13/2016 15:22:16 10/14/19 17 10/13/2016 T4, free, serum T4,free 1.22 NG/dL 0.93-1 .70 normal Not Available [facility] [address] [place] [address], [address], 10/13/2016 15:28:09 10/14/19 17 10/13/2016 TSH, serum or plasm a TSH 11.140 uIU/m L 0.290- 5.500 high Not Available [facility] [address] [place] [address], [address], 10/13/2016 15:29:53 10/14/19 17 10/13/2016 vitam in B12, serum vitamin B12 221 pg/mL 211-94 6 normal Not Available [facility] [address] [place], [address], 10/13/2016 15:39:29 10/14/19 17 10/17/2016 vitam in B1 (thia mine) , blood vitamin B1 159 nmol/ L 78-185 normal Vitam in suppl ement ation withi n 24 hours prior to blood draw may affec t the accur acy of [facility] ts. This test was devel oped and its mervat tical perfo rmanc e jerry cteri stics have been deter mined by [facility]. It has not been clear ed or appro young by FDA. This assay has been valid ated pursu ant to the CLIA regul ation s and is used for clini durga purpo ses. TEST PERFO RMED AT: [facility] [address] [place] [address] [facility] RADHA WILKINS MD ,FCAP Not Available [facility] [address] [place], [address], 10/17/2016 09:19:46 04/17/20 19 04/17/2019 CK (crea fariha kinas e), total , serum creatine kinase 32 U/L 0-169 normal Not Available [facility] [address] [place], [address], 04/17/2019 11:29:04 04/17/20 19 04/17/2019 C react danny prote in, QN, serum or plasm a C reactive protein 0.67 mg/dL 0.00-0 .50 high Jackie ntrat ions of < 1 mg/dL exclu de many acute infla mmato ry disea ses but do not speci fical ly exclu de infla mmato ry proce sses. Elmore kallie jackie ntrat ions of < 5 mg/dL in acute disea se occur in the prese nce of sligh t to moder ate infla mmato ry proce sses. Value s > 5 mg/dL indic ate high and exten sive infla mmato ry activ ity. Not Available [facility] [address] [place], [address], 04/17/2019 11:29:06 04/17/20 19 04/17/2019 ESR (eryt hrocy te sedim entat ion rate) , blood ESR, automated 20 mm/HR 0-29 normal Not Available [facility] [address] [place], [address], 04/17/2019 12:49:03 04/17/20 19 04/20/2019 PRISCILLA (anti [...] and refle xes to titer and jhonny rn. Furth er labor atory testi ng may be consi dered if clini genaro indic ated. For addit ional infor alden anderson e refer to http: //[facility] meet vazquez.Que stDia gnost ics.c om/fa q/FAQ 177 (This link is being provi ded for infor idris strickland/ educa peggy l purpo ses only. ) TEST PERFO RMED AT: [facility] [place] [address] [place] [address] YOJANA Baez MD Not Available [facility] [address] [place], [address], 04/20/2019 15:01:11 04/17/20 19 04/20/2019 PRISCILLA (anti nucle ar antib odies ) panel , serum PRISCILLA titer 1:80 titer high A low level PRISCILLA titer may be prese nt in pre-c linic al autoi mmune disea ses and jose l indiv idual s. Refer ence Range <1:40 Negat danny 1:40- 1:80 Low Antib flory Level >1:80 Elmore kallie Antib flory Level Not Available [facility] [address] [place] [address], [address], 04/20/2019 15:01:11 04/17/20 19 04/20/2019 PRISCILLA (anti [...] PRISCILLA Patte rns (http s://d oi.or g/10. 6425/ [facility]- 2017- 0052) TEST PERFO RMED AT: [facility] [place] [address] [facility] [address] YOJANA Baez MD Not Available [facility] [address] [place] [address], [address], 04/20/2019 15:01:11 04/17/20 19 04/20/2019 PRISCILLA refle x testi ng C3 179 mg/dL 83-193 normal TEST PERFO RMED AT: [facility] [place] [facility] [address] [facility] [address] YOJANA Baez MD Not Available [facility] [address] [place] [address], [address], 04/20/2019 17:00:28 04/17/20 19 04/20/2019 PRISCILLA refle x testi ng C4 32 mg/dL 15-57 normal TEST PERFO RMED AT: [facility] [place] [address] [place] [address] YOJANA Baez MD Not Available [facility] [address] [place] [address], [address], 04/20/2019 17:00:28 04/17/20 19 04/20/2019 PRISCILLA refle x testi ng C3 179 mg/dL 83-193 normal TEST PERFO RMED AT: [facility] [place] [address] [facility] [place] [address] YOJANA Baez MD Not Available [facility] [address] [place] [address], [address], 04/21/2019 16:36:37 04/17/20 19 04/20/2019 PRISCILLA refle x testi ng C4 32 mg/dL 15-57 normal TEST PERFO RMED AT: [facility] [place] [place] [address] [place] [address] YOJANA Baez MD Not Available [facility] [address] [place] [address], [address], 04/21/2019 16:36:37 04/17/20 19 04/21/2019 PRISCILLA refle x testi ng sm antibody <1.0 NEG ai <1.0 neg normal Not Available [facility] [address] [place] [address], [address], 04/21/2019 16:36:37 04/17/20 19 04/21/2019 PRISCILLA refle x testi ng sm/traffic rate clerk Ab <1.0 NEG ai <1.0 neg normal TEST PERFO RMED AT: [facility] [facility] [address] [place] [address] YOJANA Baez MD Not Available [facility] [address] [place] [address], [address], 04/21/2019 16:36:37 04/17/20 19 04/21/2019 PRISCILLA refle x testi ng ss-A Ab >8.0 POS ai <1.0 neg abnormal Not Available [facility] [address] [place] [address], [address], 04/21/2019 16:36:37 04/17/20 19 04/21/2019 PRISCILLA refle x testi ng ss-B Ab 1.0 POS ai <1.0 neg abnormal TEST PERFO RMED AT: [facility] [address] [facility] [place] [address] YOJANA Baez MD Not Available [facility] [address] [place] [address], [address], 04/21/2019 16:36:37 04/17/20 19 04/21/2019 PRISCILLA refle x testi ng scleroderma Ab <1.0 NEG ai <1.0 neg normal TEST PERFO RMED AT: [facility] [place] [address] [facility] [place] [address] YOJANA Baez MD Not Available [facility] [address] [place] [address], [address], 04/21/2019 16:36:37 04/17/20 19 04/20/2019 PRISCILLA refle x testi ng C3 179 mg/dL 83-193 normal TEST PERFO RMED AT: [facility] [place] [address] [facility] [place] [address] YOJANA Baez MD Not Available [facility] [address] [place] [address], [address], 04/22/2019 12:16:10 04/17/20 19 04/20/2019 PRISCILLA refle x testi ng C4 32 mg/dL 15-57 normal TEST PERFO RMED AT: [facility] [address] [facility] [place] [address] YOJANA Baez MD Not Available [facility] [address] [place] [address], [address], 04/22/2019 12:16:10 04/17/20 19 04/21/2019 PRISCILLA refle x testi ng sm antibody <1.0 NEG ai <1.0 neg normal Not Available [facility] [address] [place] [address], [address], 04/22/2019 12:16:10 04/17/20 19 04/21/2019 PRISCILLA refle x testi ng sm/traffic rate clerk Ab <1.0 NEG ai <1.0 neg normal TEST PERFO RMED AT: [facility] [place] [address] [place] [address] YOJANA Baez MD Not Available [facility] [address] [place] [address], [address], 04/22/2019 12:16:10 04/17/20 19 04/21/2019 PRISCILLA refle x testi ng ss-A Ab >8.0 POS ai <1.0 neg abnormal Not Available [facility] [address] [place] [address], [address], 04/22/2019 12:16:10 04/17/20 19 04/21/2019 PRISCILLA refle x testi ng ss-B Ab 1.0 POS ai <1.0 neg abnormal TEST PERFO RMED AT: [facility] [address] [place] [address] YOJANA Baez MD Not Available [facility] [address] [place] [address], [address], 04/22/2019 12:16:10 04/17/20 19 04/21/2019 PRISCILLA refle x testi ng scleroderma Ab <1.0 NEG ai <1.0 neg normal TEST PERFO RMED AT: [facility] [address] [place] [address] YOJANA Baez MD Not Available [facility] [address] [place] [address], [address], 04/22/2019 12:16:10 04/17/20 19 04/22/2019 PRISCILLA refle x testi ng DNA (ds) Ab NEGATI VE negati ve normal TEST PERFO RMED AT: [facility] [address] [place] [address] YOJANA Baez MD Not Available [facility] [address] [place] [address], [address], 04/22/2019 12:16:10 04/17/20 19 04/17/2019 XR, knee, [address] [place] [address] Patimichelle t Name: SWEETIE Nunez t : 89 Patimichelle t Orderi ng Provid er: [facility] EXAM DATE: 2018 EXAM: XR ELIZA KNEES [...] Isamar flores MD on 2018 10:58 AM [id number] [facility] [address] [place] [address], [address], 05/01/2019 12:10:41 04/17/20 19 04/17/2019 XR, hip, bilat eral, 2 view [place] [address] [place] [address] Patimichelle t Name: SWEETIE ayala : 946 Mayra t Orderi ng Provid er: [facility] EXAM DATE: 2018 EXAM: XR ELIZA HIPS, [...] hips and pelvis . Interp reted By: Isamar flores MD Electr onical ly Signed By: Isamar flores MD on 2018 10:59 AM [email or web address] [facility] [address] [place] [address], [address], 05/01/2019 12:10:41 Result Notes Documentation Provider Name and Address Organization Details Recorded Time Xr, Knee, 3 View : [place] [address] Patient Name: SWEETIE MORELOS Patient : 1950 Patient Ordering Provider: TERRI DEMPSEY EXAM DATE: 04/17/2019 EXAM: XR ELIZA KNEES 3 VIEWS HISTORY: Bilateral knee pain. COMPARISON: None. FINDINGS: There are mild osteoarthritic changes. There is mild marginal osteophytic spurring. There is mild loss of joint space in the medial femorotibial compartment. There is no evidence of fracture. IMPRESSION: 1. There are mild osteoarthritic changes in both knees. Interpreted By: Blayne Johnson MD [facility] 05/01/2019 12:10:41 Xr, Hip, Bilateral, 2 View : [address] [address] Patient Name: SWEETIE MORELOS Patient : 1950 Patient Ordering Provider: TERRI DEMPSEY EXAM DATE: 04/17/2019 EXAM: XR ELIZA HIPS, 2 VWS COMPARISON: None. HISTORY: Bilateral hip pain. FINDINGS: There are mild degenerative changes in both hips. There is mild marginal spurring. The joint space appears normal. There are subcortical cystic changes along the femoral necks. There are mild degenerative changes in the SI joints. There is no acute fracture. IMPRESSION: 1. There are mild degenerative changes in the hips and pelvis. Interpreted By: Blayne Johnson MD Rhea Norris [facility] 05/01/2019 12:10:41 Problems Name Problem SNOMED Code Status Onset Date Resolution Date Notes Provider Name and Address Organization Details Recorded Time Transient memory loss Active 017 Rhea [facility] 7 13:26:33 Problem Notes None recorded. Procedures Surgical History Date Name Laterality Status Provider Name and Address Organization Details Recorded Time Other completed Ryley Orozco [facility] 10/13/2016 13:04:37 Imaging Results None recorded. Procedure Notes None recorded. Medical Equipment None [...] Details Last Updated DateTime 10/13/2016 170.18 cm 41562.63 g 28.2 kg/m2 120 mm[Hg] 78 mm[Hg] Bess Johanne [facility] 7 13:10:44 Date Recorded Body height Body mass index (BMI) Body weight Heart rate Systolic blood pressure Diastolic blood pressure Provider Name and Address Organization Details Last Updated DateTime 9 170.18 cm 25.5 kg/m2 10773.5 6 g 63 /min 154 mm[Hg] 66 mm[Hg] Isaac Faye [facility] 9 10:02:20 Date Recorded Body height Body mass index (BMI) Body weight Respiratory rate Heart rate Systolic blood pressure Diastolic blood pressure Provider Name and Address Organization Details Last Updated DateTime 9 170.18 cm 25.8 kg/m2 41735.7 4 g 18 /min 68 /min 158 mm[Hg] 65 mm[Hg] Katie Ballard [facility] 9 15:48:33 Social History Question Answer Notes LastModified by Organizat ion Details LastModified Time Tobacco Smoking Status [facility]2016 13:03:32 What Is Your Level Of Caffeine Consumption? Moderate [email or web address] Information not available 10/13/2016 How Much Tobacco Do You Chew? None Information not available 06/05/2019 Education 2 Year College [email or web address] Information not available 10/13/2016 Marital Status [email or web address] Informatio n not available 10/13/2016 What Was The Date Of Your Most Recent Tobacco Screening? 06/05/2019 [email or web address] Information not available 06/05/2019 How Much Tobacco Do You Smoke? No Information not available 04/17/2019 How Many Years Have You Smoked Tobacco? 0 [email or web address] Information not available 06/05/2019 Sex: Unknown Functional Status Question Answer Note LastModified by Organizat ion Details LastModified Time What is your level of alcohol consumption? Occasional [email or web address] Information not available 10/13/2016 Do you or have you ever used smokeless tobacco? 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 Never used electronic cigarettes [email or web address] Information not available 06/05/2019 Mental Status None recorded. Family History Relationship Description Onset Age of this Age Resolved Age Notes LastModified by Organization Details LastModified Time Mother Hypertensive disorder Not available 2016 13:02:18 Mother Family history of stroke [email or web address] Not available 2016 13:02:35 Mother Arthritis Not available 04/17/2019 10:00:31 Sister Hypertensive disorder [email or web address] Not available 2016 13:02:18 Sister Heart disease [email or web address] Not available 2016 13:02:28 Sister Diabetes mellitus [email or web address] Not available 2016 13:02:52 Sister Obesity [email or web address] Not available 10/13/2016 13:03:09 Sister Disorder of thyroid gland [email or web address] Not available 2016 13:03:17 Father Family history of malignant neoplasm Not available 2016 13:02:41 Brother Diabetes mellitus [email or web address] Not available 2016 13:02:52 Brother Obesity [email or web address] Not availabl e 10/13/2016 13:03:09 Medical History No medical history recorded. Gynecological HistoryNo gynecological history recorded. Obstetrics History GPAL:G 0 P 0 0 0 0 Immunizations Vaccine Type Date Status Note Provider Nam e and Address Organization Details Recorded Time Influenza, split virus, quadrivalent, preservative 9 completed Isaac Gray [facility] 04/17/2019 10:00:05 Past Encounters Encounter ID Performer Location Encounter Start Date Encounter Closed Date Diagnosis/Indication Diagnosis SNOMED-CT Code Diagnosis ICD10 Code Diagnosis Note [id number] JONATHAN GARCIA MD NEUROLOGY [facility] [address] [place] [address] 10/13/2016 12:56:25 10/13/2016 14:12:45 Visual hallucinations 83381004 R44.1 Amnesia 07338814 R41.3 Formed vis ual hallucinations 786894066 R44.1 Transient memory loss 30 5562359 R41.3 Cerebral atrophy 6038517 00 G31.9 [id number] MEÑO DEMPSEY MD [facility] [address] [place] [address] 04/17/2019 09:43:59 04/18/2019 08:55:04 Generalized osteoarthritis 523648336 M15.9 69-year-ol d female with degenerati ve arthritis. Symptoms seems to be more pronounced in the lower extremitie s especially the hip and knee joints. She has bilateral knee valgus deformity with poor quadricep muscle strength. This would likely contribute to her gait abnormalit ies including unsteady gait with poor balance. I have discussed my findings and concerns with the patient. I have obtained x-rays of bilateral hip and knee joints. I will contact her after review of the x-rays. Muscle pain 49589748 M79 .10 she has had muscle pains and weakness which was extensivel y evaluated in the last several months. Except for modest elevation in the ESR at 55 mm per hour, rest of her studies were insignific ant or unremarkab le. As mentioned above, clinical examinatio n is consistent with generalize d osteoarthr itis with significan t involvemen t of the hip and knee joints. She does have chronic diabetes which can also cause her to have peripheral neuropathy along with muscle weakness. However, I did not see any strong clinical evidence of an inflammato ry muscle disease such as idiopathic inflammato ry myopathies or myositis. The polymyalgi a rheumatica is in the differenti al diagnosis but seems less likely especially as her symptoms are more pronounced in her legs as compared to the extremitie s. The corrected ESR for her age and gender is around 45 mm per hour which is not far from her recent ESR. As far as Sjogren syndrome is concerned, this is more of a glandular disease with chronic dry eyes and dry mouth. I do not see any extra-glan dular features like associated myopathy or painful peripheral neuropathy to suggest any Sjogren's activity. She does have chronic hypothyroi dism with some recent abnormalit ies in the thyroid function test which needs to be corrected as it can also contribute s to her muscle weakness and pain. All of my findings and concerns were reviewed with the patient. I suggested her to continue with the strict control of diabetes as well as maintain a normal thyroid profile. I would suggest to obtain baseline lab studies as detailed below. No medication s were initiated on this was. I will contact her after review of the lab studies for any further discussion s. [id number] MEÑO DEMPSEY MD R[facility]UMATOL [facility] [address] [place] [address] 06/05/2019 15:17:32 06/06/2019 09:57:40 Generalized osteoarthritis 347619470 M15.9 69-year-ol d female with degenerati ve arthritis. today, reviewed x-rays of bilateral knee joints as well as bilateral hip joints. She has only modest degenerati ve changes. No knee joint or hip joint instabilit y is noted. I suggested her to maintain nonpharmac ological modalities including regular walk, strength training as well as use of Tylenol Extra Strength for the pains. At present I do not see indication s for the intra-jaime cular steroid injections . she agrees with the plan. Muscle pain 51301037 M79 .10 for details, please see my initial notes. doing much better. In summary her clinical examinatio n is without evidence of any active inflammato ry joint disease or inflammato ry muscle disease. She does have chronic primary Sjogren's but without any evidence of myopathy or myositis. Her most recent complement s C3 and C4 are within normal limits. the ESR is also normal. creatinine kinase is also normal. As far as Sjogren syndrome is concerned, this is more of a glandular disease with chronic dry eyes and dry mouth. I do not see any extra-glan dular features like associated myopathy or painful peripheral neuropathy to suggest any Sjogren's activity. she has used hydroxychl oroquine in the past and I do not see her to reinitiate the disease modifying drugs. she is comfortabl e with the discussion . She will follow-up with me in a year. Sooner if needed. Primary Sj gren's syndrome 005202791 M35.00 chronic primary Sjogren's syndrome without any extra glandular disease. Asymptomat ic and at present no indication for disease modifying drugs. Health Concerns Section Related Observation LastModified by Organization Detai ls LastModified Time None Recorded Concern Status LastModified by Organization Details LastModified Time None Recorded Advance Directives Directive None Recorded Payers Insurance Date Sequence Insurance Name Policy Number Policy Handy Covered Member ID Handy Member ID Guarantor Name 05/11/2019 2 UNSPECIFIED REMIT PAYOR Sweetie Monurgey 05/11/2019 2 UNSPECIFIED REMIT PAYOR Sweetie Mancera Amburgey 06/06/2019 2 [employer] SU[employer] - [employer]UR[employer] (MEDICARE SUPPLEMENT) PLAN G Sweetie Monurgey [id number] Sweetie Monurgey 06/05/2019 1 [place] Sweetie Monurgey [id number] Sweetie Mancera Amburgey 06/06/2019 2 [employer] - MEDICARE SELECT - PLAN F (MEDICARE SUPPLEMENT) Sweetie Monurgey [id number] Sweetie Monurgey Notes Date Note Type Note Provider Name and Address Organization Details Recorded Time 10/13/2016 text/html 66 year old fatuma vazquez from [place] CC hallucination/memor y loss She has some [...] history of memory impairment JONATHAN GARCIA MD [facility] [place], [address], [facility] 10/13/2016 22:55:39 04/17/2019 text/html New patient. [...] tingling in her extremities. MEÑO DEMPSEY MD [facility] [place], [address], [facility] 04/17/2019 13:24:03 06/05/2019 text/html follow-up for osteoarthritis, muscle pain and primary Sjogren's. Denies any acute complaints. In fact her muscle pains are significantly improved or resolved. She is now here to discuss her lab studies as well as the x-rays[place], [address], [facility] 06/05/2019 16:08:52 OBGyn Episode No OBEpisode recorded.
--- OUTSIDE RECORDS SUMMARY | 2024-12-02 20:42 | XMS_ITS | Encounter Summary ---
Author Organization [facility] [employer] Address [address] [place] [address] Care Team Providers Care [employer]an [employer] Senior Specialist Name Role Phone eJssie Fine MD Unavailable [phone] Encounter Details Date Type Department Care Team (Late st Contact Info) Description 10/14/2022 Telephone [facility] - [address] [place] [address] [facility], [place] Social History Tobacco Use Types Packs/Day Years [...] on filedocumented in this encounter Care Teams Le[employer] Senior Specialist Relationship Specialty Start Date End Date Jessie Fine MD [address] [place] [address] Referring Physician Hematology and Oncology 10/16/22 documented as of this encounter
--- OUTSIDE RECORDS SUMMARY | 2024-12-02 20:42 | XMS_ITS | Referral Summary ---
Author Organization [employer] Address [address] [place] [address] Care Team Providers Care Mortgage Specialist Name Role Phone Jessie Fine MD Unavailable [phone] Allergies Active Allergy Reactions Criticality Noted [...] Date Kt rded Speak language other than Maltese at home Not on file 06/16/2023 Want [...] on file Insurance MEDICARE [place] [address] [place] [address] Care Teams Mortgage Specialist Relationship Specialty Start Date End Date Jessie Fine MD [address] [place] [address] Referring Physician Hematology and Oncology 10/16/22
--- NOTE | 2024-12-02 20:43 | ECG_ITS ---
APPROVED REPORT Exam: Resting ECG HR:105 bpm ECG Measurements Heart Rate [address] 207 P 68 QRSd 87 QRS -68 QT 335 T 28 QTc 396 Conclusion Sinus tachycardia Low voltage Incomplete right bundle branch block Left anterior fascicular block Electronically signed by : HILLARY WONG, 12/02/2024 22:43:04
[2024-12-02 20:48] LABS: Lactate Venous 1.3 mmol/L (0.4-2.0); VBG HCO3 25.2 mmol/L (23-30); VBG PCO2 39.2 mmol/L (35-51); VBG PH 7.43 mmol/L (7.31-7.41); VBG PO2 46.2 mmol/L (28-40)
--- NOTE | 2024-12-02 20:53 | CT_ITS ---
PROCEDURE INFORMATION: Exam: CTA Chest With Contrast Exam date and time: 12/02/2024 9:14 PM Age: 74 years old Clinical indication: Shortness of breath; Additional info: SOA, tachycardia TECHNIQUE: Imaging protocol: Computed tomographic angiography of the chest with contrast. Exam focused on the arteries. 3D rendering (Not supervised by radiologist): MIP and/or 3D reconstructed images were created by the technologist. Radiation optimization: All CT scans at this facility use at least one of these dose optimization techniques: automated exposure control; mA and/or kV adjustment per patient size (includes targeted exams where dose is matched to clinical indication); or iterative reconstruction. Contrast material: ISOVUE; Contrast volume: 70 ml; Contrast route: INTRAVENOUS (IV); COMPARISON: CT ANGIO CHEST PE PROTOCOL 05/15/2024 11:52 AM FINDINGS: Pulmonary arteries: No large central pulmonary emboli were identified. Assessment of the small peripheral subsegmental branches was nondiagnostic at multiple levels due to gross respiratory motion. Moderate dilatation of the central pulmonary arteries suggesting pulmonary arterial hypertension. Aorta: Aneurysmal dilatation of the ascending aortic segment measuring 4.1 cm diameter. No dissection or rupture. Mild aortic tortuosity with moderate calcific atherosclerosis. Thyroid: The visualized thyroid gland demonstrates no gross abnormality. Lungs: Moderate bilateral bronchial wall thickening suggesting bronchitis or bronchial edema. Bilateral peripheral subsegmental bronchial occlusions suggesting mucous plugging/secretions. Patchy bilateral alveolar opacities involving the right middle lobe lateral segment, lingula, lateral left lower lobe, lateral left upper lobe, and to a lesser degree the right upper lobe central apical distribution, with intermixed reticulonodular elements, concerning for multifocal atypical pneumonia. Pulmonary granulomatous calcifications. A 4 mm pulmonary nodule in the lateral left lower lobe is unchanged from 12/26/2023 and does not require further evaluation. Pleural spaces: Mild pleural-parenchymal fibrosis in the pulmonary apices. No pleural effusion. No pneumothorax. Heart: Heart size normal. No pericardial effusion. Coronary arteries: Mild coronary artery calcification. Esophagus: The esophagus is largely contracted but demonstrates no gross abnormality. Mediastinal space: No mediastinal hematoma. Lymph nodes: Mildly enlarged mediastinal nodes in the precarinal and subcarinal distribution. Mildly enlarged bilateral hilar nodes. Liver: Small right hepatic lobe with irregular contour suggesting cirrhosis. Bones/joints: No acute osseous abnormalities. Osteopenia. Mild thoracic spondylosis. Soft tissues: No acute soft tissue abnormalities. IMPRESSION: 1. No large central pulmonary emboli. Assessment of the segmental and subsegmental branches was nondiagnostic due to respiratory motion. 2. Multifocal bilateral alveolar opacities with intermixed reticulonodular elements, concerning for multifocal atypical pneumonia. 3. Moderate bronchial wall thickening suggesting bronchitis with scattered peripheral subsegmental bronchial occlusions consistent with mucous plugging/secretions. 4. Mild aneurysmal dilatation of the ascending aorta at 4.1 cm diameter. No dissection or rupture. 5. Mildly enlarged mediastinal and hilar nodes. 6. Hepatic cirrhosis. 7. Additional nonemergent findings detailed above.
[2024-12-02 21:06] LABS: Alanine Aminotransferase 12 U/L (12-78); Albumin Level 4.1 g/dl (3.5-5.0); Albumin/Globulin Ratio 1.2 (1.1-1.8); Alkaline Phosphatase 71 U/L (38-126); Anion Gap 11.8 mEq/L (5-15); Aspartate Amino Transferase 22 U/L (14-36); Bilirubin,Total 1.3 mg/dl (0.2-1.3); Blood Urea Nitrogen 12 mg/dl (7-17); Calcium 9.6 mg/dl (8.4-10.2); Carbon Dioxide 29 mmol/L (22.0-30.0); Chloride 95 mmol/L (98-107); Creatinine Clearance Estimated 56 mL/min (50-200); Creatinine,Serum 0.80 mg/dl (0.52-1.04); Estimated Glomerular Filt Rate 70 ml/min (>60); GFR (African American) 84 ML/MIN (>60); Globulin 3.4 g/dL (1.3-3.2); Glucose 175 mg/dl (74-100); Potassium 3.8 mmoL/L (3.5-5.1); Sodium 132 mmol/L (136-145); Total Protein,Serum 7.5 g/dl (6.3-8.2)
[2024-12-02 21:10] LABS: Hematocrit 35.8 % (37.0-47.0); Hemoglobin 12.3 g/dL (12.2-16.2); Immature Granulocytes % 0.6 %; Mean Corpuscular HGB Conc 34.4 g/dL (31.8-35.4); Mean Corpuscular Hemoglobin 30.3 pg (27.0-31.2); Mean Corpuscular Volume 88.2 fl (81-99); Nucleated Red Blood Cells % 0 %; Platelet Count 173 K/mm3 (142-424); Red Blood Count 4.06 M/mm3 (4.20-5.40); Red Cell Distribution Width-SD 42.7 fL; White Blood Count 9.7 K/mm3 (4.8-10.8)
[2024-12-02 21:17] LABS: NT Pro Brain Natriuretic Pep. 432 pg/mL (0-450)
[2024-12-02 21:21] LABS: Troponin I < 0.01 ng/ml (0.00-0.034)
[2024-12-02 21:23] LABS: T4 (Thyroxine) 9.5 ug/dl (5.53-11.0)
[2024-12-02] MEDS: IOPAMIDOL-370 (76%);100ML BOTTLE 70 ML IV (21:29)
[2024-12-02] MEDS: SODIUM CHLORIDE 0.9% 10ML SYR (RAD ONLY) 10 ML IV (21:29)
[2024-12-02] MEDS: 0.9 % SODIUM CHLORIDE 50 ML VIAL IV (21:29)
--- NOTE | 2024-12-02 21:32 | [facility].EDCP ---
Discharge Plan Disposition Patient Disposition: Home, Self-Care Clinical Impressions Clinical Impression: Multifocal pneumonia, Adult failure to thrive Discharge ED Provider: Salvatore Jamil General Chief Complaint: Shortness of Breath/Dyspnea Stated Complaint: SOA Time Seen by Provider: 12/02/24 20:50 Mode of Arrival: EMS Source of Information: Patient and EMS Description of Symptoms (Recalled from ER Triage Doc. by RN): Patient is feeling short of breath and having difficulty ambulating History of Present Illness HPI narrative: Please note that above description of symptoms, in this electronic medical record under categorization of recalled from ER triage doctor by RN are reflective of an initial nursing assessment, however, is not reflective of my full history and physical exam that was personally taken and clarified. Consequentially, this preceding description of symptoms, which may include the patient's categorized chief complaint in the EMR, do not reflect my personal clinical impression, and the ultimate description of history of present illness and patient stated complaints should be deferred to this section of the note. Unless stated otherwise or congruent with this section of the note, additional signs, symptoms, or incongruence should be interpreted as inaccurate with my clinical impression. Related Data Home Medications ?Medication ?Instructions ?Recorded ?Confirmed montelukast 10 mg tablet 10 mg PO PM 11/16/18 08/07/24 simvastatin 20 mg tablet 20 mg PO PM 11/16/18 08/07/24 losartan 100 mg tablet 100 mg PO DAILY 02/17/23 08/07/24 lamotrigine 200 mg tablet 200 mg PO AM 04/25/24 08/07/24 levothyroxine 150 mcg tablet 150 mcg PO AM 04/25/24 08/07/24 aspirin 81 mg capsule 81 mg PO DAILY Heart Disease 05/21/24 08/07/24 biotin 10,000 mcg chewable tablet 10,000 mcg PO DAILY Supplement 05/21/24 08/07/24 (Hair, Skin and Nails (biotin)) multivitamin with minerals-folic 1 tab PO DAILY Supplement 05/21/24 08/07/24 acid 12 mcg chewable tablet (Centrum Adults) fluoxetine 40 mg capsule 40 mg PO DAILY 08/07/24 08/07/24 fluticasone 250 mcg-salmeterol 50 1 inh inhalation BID 08/07/24 08/07/24 mcg/dose blistr powdr for inhalation (Wixela Inhub) hydroxyzine pamoate 25 mg capsule 25 mg PO 08/07/24 08/07/24 insulin degludec 200 unit/mL (3 30 unit SQ HS 08/07/24 08/07/24 mL) subcutaneous pen (Tresiba FlexTouch U-200 insulin) meclizine 25 mg tablet 25 mg PO PRN 08/07/24 08/07/24 Previous Rx's ?Medication ?Instructions ?Recorded metoprolol tartrate 25 mg tablet 25 mg PO BID 30 days #60 tabs 04/26/24 furosemide 40 mg tablet (Lasix) 40 mg PO DAILY PRN Leg edema #30 05/09/24 tabs spironolactone 25 mg tablet 25 mg PO DAILY 30 days #30 tabs 05/09/24 ondansetron 4 mg disintegrating 4 mg PO Q8H PRN nausea and 05/21/24 tablet vomiting 4 days #12 tabs fluticasone 250 mcg-salmeterol 50 1 inh inhalation BID 90 days #180 08/07/24 mcg/dose blistr powdr for ea inhalation (Wixela Inhub) albuterol sulfate 90 mcg/actuation 2 inh inhalation Q6H PRN shortness 11/15/24 aerosol inhaler of breath or wheezing 90 days #8.5 grams Allergies Allergy/AdvReac Type Severity Reaction Status Date / Time No Known Allergies Allergy Verified 08/07/24 14:21 [facility] Disclaimer: The information contained in this section may have been updated after the patient was seen, as this information can be updated by other users. Medical History History of smoking 10-25 pack years ILD (interstitial lung disease) Asthma Vertigo Dizziness Acute UTI Asthma exacerbation Anxiety Bipolar 1 disorder Hypertension History of mastoiditis Vertigo Diabetes Postsurgical fever Hypothyroidism Surgical History History of tubal ligation History of colonoscopy History of cholecystectomy Family History Other COPD (chronic obstructive pulmonary disease) Cancer Hypertension Thyroid disorder Social History Smoking Status: Never smoker years smoked: 14 smoking status stop date: 1993 second hand exposure: Yes alcohol intake: never substance use type: marijuana current occupational status: retired Travel in the last 8 weeks?: None household members: none housing: house 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 current occupational exposures/hazards: No caffeine: Yes Have you lived/traveled outside [place] in past 30 days?: No Contact w/someone who lives/traveled outside US past 30 days?: No Exposure to someone with infectious disease in past 14 days?: No Do you have a fever (greater than 100.4 F or 38 C)?: No Have you tested positive for COVID-19?: No Exposed to someone with COVID-19 in past 14 days?: No Do you have a sore throat?: No Do you have a cough?: No Do you have any weakness?: No Do you have any diarrhea?: No Are you experiencing any unusual bleeding?: No Do you have any muscle aches/pain?: No Do you have any abdominal pain?: No Are you experiencing loss of taste or smell?: No Other Medical History Have you received the Flu Vaccine for this season: No Have you received the Pneumonia Vaccine: Yes ROS Obtained: Yes All systems reviewed & no additional complaints except as documented Physical Exam General General appearance: alert, in no apparent distress and in distress Neck Neck exam: Present trachea midline Chest Chest inspection: Present normal inspection and symmetric chest wall rise Respiratory Respiratory exam: Present normal lung sounds bilaterally, prolonged expiratory phase and other (Tachypneic, breathing through pursed lips); Absent respiratory distress, wheezes, stridor or accessory muscle use Cardiovascular Cardiovascular exam: Present normal rhythm, tachycardia and other (Pulses equal and symmetric in upper and lower extremities) Abdominal Exam Abdominal exam: Present soft; Absent distention, tenderness or guarding Extremities Exam Extremities exam: Absent edema Neurological Exam Neurological exam: Present alert, oriented X3 and CN II-XII intact Skin Skin exam: Present warm and dry; Absent cyanosis, diaphoresis or pallor HEART Score HEART Score HEART Score assessment performed?: Yes History (anamnesis): Slightly suspicious ECG: Non-specific disturbance Age: >65 years Risk factors: 3 or more risk factors Troponin: </= normal limit HEART Score: 5 Critical Care Critical Care Time Critical Care Time: No Medical Decision Making Medical Records Medical records reviewed: Yes I reviewed the patient's medical records. Binu Inquiry Pt receiving controlled substance: No Binu was queried for this patient: No Vital Signs Vital Signs: 12/02/24 20:41 12/02/24 21:00 12/02/24 21:49 Temperature 97.9 F Temperature Source Oral Pulse Rate 101 H 89 Pulse Rate [Right Brachial] 109 H Respiratory Rate 16 Blood Pressure 152/69 H 131/75 Blood Pressure [Right Arm] 149/82 H Blood Pressure Mean [Right Arm] 104 Blood Pressure Source [Right Arm] Automatic Cuff Blood Pressure Position [Right Arm] Supine 02 Sat by Pulse Oximetry 92 L 95 94 L Oxygen Delivery Method Room Air 12/02/24 22:00 12/02/24 22:30 12/02/24 22:49 Temperature Temperature Source Pulse Rate 86 84 83 Pulse Rate [Right Brachial] Respiratory Rate Blood Pressure 157/76 H 143/67 H Blood Pressure [Right Arm] Blood Pressure Mean [Right Arm] Blood Pressure Source [Right Arm] Blood Pressure Position [Right Arm] 02 Sat by Pulse Oximetry 94 L 95 Oxygen Delivery Method Lab Data Labs: Lab Results 12/02/24 20:38: WBC 9.7, RBC 4.06 L, Hgb 12.3, Hct 35.8 L, MCV 88.2, MCH 30.3, MCHC 34.4, RDW 13.2, Plt Count 173, MPV 8.2, Neut % (Auto) 65.1, Lymph % (Auto) 17.9, [place] % (Auto) 14.7 H, Eos % (Auto) 1.3, Baso % (Auto) 0.4, Neut # (Auto) 6.3, Lymph # (Auto) 1.7, [place] # (Auto) 1.4 H, Eos # (Auto) 0.1, Baso # (Auto) 0.0, Sodium 132 L, Potassium 3.8, Chloride 95 L, Carbon Dioxide 29, Anion Gap 11.8, BUN 12, Creatinine 0.80, Estimated Creat Clear 56, Estimated GFR 70, Est GFR ( Amer) 84, Glucose 175 H, Calcium 9.6, Total Bilirubin 1.3, AST 22, ALT 12, Alkaline Phosphatase 71, Troponin I < 0.01, NT-Pro-B Natriuret Pep 432, Total Protein 7.5, Albumin 4.1, Globulin 3.4 H, Albumin/Globulin Ratio 1.2, TSH 6.27 H, Thyroxine (T4) 9.5 12/02/24 20:45: VBG pH 7.43 H, VBG pCO2 39.2, VBG pO2 46.2 H, VBG HCO3 25.2, VBG Total CO2 26.4, VBG O2 Saturation 81.6 H, VBG Base Excess 0.8, VBG Lactic Acid 1.3 12/02/24 20:38 12/02/24 20:38 Response Orders (Tests/Meds): ED MEDICATIONS Generic Name Dose Route Start Last Admin Trade Name Freq PRN Reason Stop Dose Admin Acetaminophen 650 mg 12/02/24 22:35 Acetaminophen 325mg Tab PO 01/01/25 22:34 Q4HP PRN Fever or Mild Pain (1-3) Hydrocodone Bitart/Acetaminophen 1 tab 12/02/24 22:35 Hydrocodone/Apap 5/325 Mg Tablet PO 01/01/25 22:34 Q4HP PRN Mild to Moderate Pain (1-6) Al Hydrox/Mg Hydrox/Simethicone 30 ml 12/02/24 22:35 Aluminum/Magnesium/Simethicone 30ml Udc PO 01/01/25 22:34 QIDP PRN Dyspepsia Enoxaparin Sodium 40 mg 12/03/24 09:00 Enoxaparin 40mg/0.4ml Syringe SUBCUT 01/02/25 08:59 DAILY [facility] Sodium Chloride 1,000 mls @ 100 mls/hr 12/02/24 22:45 Sod Chlor 0.9% 1000ml Bag IV 01/01/25 22:44 .Q10H [facility] Azithromycin 500 mg/ Sodium 250 mls @ 250 mls/hr 12/02/24 22:50 Chloride IV 12/02/24 22:51 ONCE ONE Ceftriaxone Sodium 2 gm/ 100 mls @ 200 mls/hr 12/02/24 22:50 Sodium Chloride IV 12/02/24 23:19 ONCE ONE Insulin Human Lispro 0 unit 12/03/24 06:00 Humalog 100 Units/Ml 10ml Vial ([facility]) SUBCUT 01/02/25 05:59 ACHS [facility] Protocol Ondansetron HCl 4 mg 12/02/24 22:35 Ondansetron 4mg/2ml Vial IV 01/01/25 22:34 Q8HP PRN Nausea Sodium Chloride 10 ml 12/02/24 21:28 12/02/24 21:29 Sodium Chloride 0.9% 10ml Syr (Rad Only) IV 01/01/25 21:27 10 ml NEEDED PRN Administration Maintain IV Site Discontinued Medications Generic Name Dose Route Start Last Admin Trade Name Trung PRN Reason Stop Dose Admin Albuterol/Ipratropium 9 ml 12/02/24 21:38 12/02/24 22:47 Ipratropium/Albuterol 3 Ml Neb IH 12/02/24 21:39 9 ml ONCE ONE Administration Iopamidol 70 ml 12/02/24 21:28 12/02/24 21:29 Iopamidol-370 (76%);100ml Bottle IV 12/02/24 21:29 70 ml ONCE ONE Administration Sodium Chloride 50 ml 12/02/24 21:28 12/02/24 21:29 0.9 % Sodium Chloride 50 Ml Vial IV 12/02/24 21:29 50 ml ONCE ONE Administration ORDERS Category Date Time Status CT angio chest PE protocol Stat Cat Scan 12/02/24 20:53 Completed Basic Metabolic Panel AMLAB Lab 12/03/24 06:00 Ordered CBC w/Auto Diff [Complete Blood Count Auto Diff] Stat Lab 12/02/24 20:38 Completed CMP [Comprehensive Metabolic Panel] Stat Lab 12/02/24 20:38 Completed Complete Blood Count Auto Diff AMLAB Lab 12/03/24 06:00 Ordered NT Pro Brain Natriuretic Pep. Stat Lab 12/02/24 20:38 Completed T4 (Thyroxine) Stat Lab 12/02/24 20:38 Completed TSH [Thyroid Stimulating Hormone] Stat Lab 12/02/24 20:38 Completed Trop I [Troponin I] Stat Lab 12/02/24 20:38 Completed Troponin I Q3H Lab 12/02/24 23:54 Ordered Troponin I Q3H Lab 12/03/24 02:54 Ordered VBG [Venous Blood Gas] Stat RT 12/02/24 20:45 Completed MDM Narrative Medical Decision Narrative: 74-year-old female history of interstitial lung disease, COPD, hypertension, hyperlipidemia, diabetes presenting with shortness of breath. She states she has had shortness of breath since the 1980s, but is gotten worse for the last 4 days. Dry cough that does not seem worse than usual, no lower extremity edema. No fevers or chills, abdominal pain, but she states that she has been short of breath and so weak that she can hardly walk. She has had 4 falls in the last couple of days and has had to call the ambulance multiple times for lift assist. Came in for further evaluation. History was obtained via conversation with patient and family. On arrival, patient hemodynamically stable, alert, oriented x4, appropriate, GCS 15, moving all extremities spontaneously, pupils equal and reactive to light. Full physical exam performed and significant for chronically ill-appearing female who is in no acute distress. Actually sleeping on my initial evaluation. On 2 L nasal cannula in the room, but she is not typically on oxygen. When turning off the nasal cannula oxygen, patient becomes tachypneic, progressively more tachycardic, and began breathing through pursed lips. Lung auscultation with clear lungs bilaterally, no overt abnormality on pulmonary auscultation. Cardiac exam with right upper sternal border murmur, but no gallops or rubs. No lower extremity edema and pulses are equal and symmetric in upper and lower extremities. Differential includes COPD exacerbation, bronchitis, pneumonia, CHF, ACS, SD, PE, pneumothorax, among others. Patient was given supplemental oxygen, DuoNebs for symptomatic management and correction of underlying abnormalities. Patient placed on continuous cardiac monitoring and continuous pulse ox with initial blood pressure 149/82, heart rate 109, saturation 92% on room air. Independent interpretation of EKG shows sinus tachycardia 105 beats per minute. Incomplete right bundle branch block. Nonspecific ST changes and no obvious elevations leftward axis. Workup independently interpreted and significant for nonactionable CBC or chemistry other than mild hyponatremia patient received fluids for this. Troponin negative, BNP negative. CT scan of the chest without PE, but she does have 4 cm ascending aortic aneurysm without signs of acute abnormality as well as patchy multifocal pneumonia. Given ceftriaxone azithromycin for this. Hospital medicine contacted and case was discussed at length, patient to be admitted for generalized weakness, failure to thrive in the setting of multifocal pneumonia. Because patient high risk for clinical decompensation, deemed appropriate for inpatient admission. Results were relayed to patient who voiced understanding and patient was agreeable to inpatient admission and management. Patient was admitted to the hospital for further definitive management. [facility] disclaimer Much of this encounter note is an electronic clinic licensed practical nurse spoken language to printed text. Electronic clinic licensed practical nurse of the spoken language may permit errors. Although I have reviewed the note, some errors may still exist.
[2024-12-02 21:37] LABS: Thyroid Stimulating Hormone 6.27 uIU/mL (0.465-4.68)
[2024-12-02] MEDS: IPRATROPIUM/ALBUTEROL 3 ML NEB 9 ML IH (22:47)
--- NOTE | 2024-12-02 23:02 | PC.NURSE ---
report given to Amira on med/surg. Tech in room now obtaining blood cultures
--- NOTE | 2024-12-02 23:48 | P.HP_ITS ---
<Statement entered by Alfonso Mercado MD - 12/03/24 15:56> Rounded on patient after nurse practitioner. Personally examined and interviewed patient. Agree with exam findings and care plan as documented. History of Present Illness *Admission Date: 12/02/24 *Reason for visit:: Dizziness *History of present illness: Ms. Hidalgo is a 74-year-old female presents ER with complaints of dizziness. Patient has a past medical history of asthma, vertigo, interstitial lung disease, bipolar disorder, hypertension, diabetes, and hypothyroidism. Patient states she has been dizzy off-and-on for months. She states she was diagnosed with vertigo and prescribed meclizine that she takes for her symptoms. She states she was more dizzy today and felt like she could not stand. She also reports dry cough, headache, lightheadedness, and shortness of breath worse from baseline. Patient reports some vomiting few days ago that has resolved. She also reports multiple falls and having to call for lift this 6 to 4-5 times this week. Reports she has not been eating and drinking very well. She denies home O2 use. Patient denies fever/chills, congestion, runny nose, chest pain, diarrhea, constipation, headache, or syncope. [facility] Disclaimer: The information contained in this section may have been updated after the patient was seen, as this information can be updated by other users. Medical History History of smoking 10-25 pack years ILD (interstitial lung disease) Asthma Vertigo Dizziness Acute UTI Asthma exacerbation Anxiety Bipolar 1 disorder Hypertension History of mastoiditis Vertigo Diabetes Postsurgical fever Hypothyroidism Surgical History History of tubal ligation History of colonoscopy History of cholecystectomy Family History Other COPD (chronic obstructive pulmonary disease) Cancer Hypertension Thyroid disorder Social History (Updated 12/03/24 @ 00:17 by Vijaya Downs RN) Smoking Status: Former smoker years smoked: 14 smoking status stop date: 1993 second hand exposure: Yes alcohol intake: never substance use type: marijuana current occupational status: retired Travel in the last 8 weeks?: None household members: none housing: house 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 current occupational exposures/hazards: No caffeine: Yes Have you lived/traveled outside [place] in past 30 days?: No Contact w/someone who lives/traveled outside US past 30 days?: No Exposure to someone with infectious disease in past 14 days?: No Do you have a fever (greater than 100.4 F or 38 C)?: No Have you tested positive for COVID-19?: No Exposed to someone with COVID-19 in past 14 days?: No Do you have a sore throat?: No Do you have a cough?: No Do you have any weakness?: No Are you experiencing any nausea/vomitting?: No Do you have any diarrhea?: No Are you experiencing any unusual bleeding?: No Do you have any muscle aches/pain?: No Do you have any abdominal pain?: No Are you experiencing loss of taste or smell?: No Other Medical History Have you received the Flu Vaccine for this season: No Have you received the Pneumonia Vaccine: Yes Review of Systems Constitutional Constitutional: Denies chills, Denies fever(s), Reports headache(s) and Reports weakness ENT Ears, Nose, Mouth, and Throat: Reports headache(s) and Reports vertigo *Cardiovascular Cardiovascular: Denies chest pain, Reports dyspnea and Reports lightheadedness *Respiratory Respiratory: Reports cough and Reports dyspnea *Gastrointestinal Gastrointestinal: Denies abdominal pain, Denies constipation, Reports nausea and Reports vomiting *Genitourinary Genitourinary: Reports system reviewed and no additional complaints, except as documented *Musculoskeletal Musculoskeletal: Reports system reviewed and no additional complaints, except as documented *Neurologic Neurologic: Reports headache(s), Reports vertigo and Reports weakness Allergic/Immunologic Allergic/Immunologic: Denies seasonal rhinorrhea Meds Home Medications and Allergies Home Medications ?Medication ?Instructions ?Recorded ?Confirmed ?Type montelukast 10 mg tablet 10 mg PO PM 11/16/18 5 History simvastatin 20 mg tablet 20 mg PO HS 11/16/18 5 History losartan 100 mg tablet 100 mg PO DAILY 02/17/23 History lamotrigine 200 mg tablet 200 mg PO AM 04/25/24 History levothyroxine 150 mcg tablet 150 mcg PO DAILYDM 12/03/24 History furosemide 40 mg tablet (Lasix) 40 mg PO DAILY PRN Leg edema #30 05/09/24 12/03/24 Rx tabs spironolactone 25 mg tablet 25 mg PO DAILY 30 days #30 tabs 05/09/24 12/03/24 Rx aspirin 81 mg capsule 81 mg PO DAILY 05/21/2411/06 History biotin 10,000 mcg chewable tablet 10,000 mcg PO DAILY Supplement 05/21/24 12/03/24 History (Hair, Skin and Nails (biotin)) multivitamin with minerals-folic 1 tab PO DAILY Supple ment 05/21/24 12/03/24 History acid 12 mcg chewable tablet (Centrum Adults) fluoxetine 40 mg capsule 40 mg PO DAILY 08/07/2411/06 History hydroxyzine pamoate 25 mg capsule 50 mg PO Q6HP PRN An xiety 08/07/24 12/03/24 History insulin degludec 200 unit/mL (3 30 unit SQ HS 08/07/24 12/03/24 History mL) subcutaneous pen (Tresiba FlexTouch U-200 insulin) meclizine 25 mg tablet 25 mg PO TIDP PRN Dizziness Or 08/07/24 12/03/24 History Vertigo albuterol sulfate 90 mcg/actuation 2 inh inhalation Q6 H PRN shortness 11/15/24 12/03/24 Rx aerosol inhaler of breath or wheezing 90 day s #8.5 grams bupropion HCl 150 mg tablet,12 hr 150 mg PO DAILY 11/0612/03/24 History sustained-release fluticasone 250 mcg-salmeterol 50 1 inh inhalation BID RT 12/03/24 12/03/24 History mcg/dose blistr powdr for inhalation (Wixela Inhub) metoprolol tartrate 25 mg tablet 25 mg PO DAILY 12/03/24 History ondansetron 4 mg disintegrating 4 mg PO Q8HP PRN nause a and 12/03/24 12/03/24 History tablet vomiting New Prescriptions to Start Prescriptions: Allergies Allergy/AdvReac Type Severity Reaction Status Date / Time No Known Allergies Allergy Verified 08/07/24 14:21 Exam Data for Last 24 hours Vital signs and Labs for Last 24 Hours: Temp Pulse Resp BP Pulse Ox O2 Del Method O2 Flow Rate 97.9 F 103 H 16 155/71 H 95 Nasal Cannula 2 12/02/24 23:03 12/02/24 23:03 12/02/24 23:03 12/02/24 23:03 12/02/24 23:00 12/02/24 23:03 12/02/24 23:03 Laboratory Results - last 24 hr 12/02/24 20:38: WBC 9.7, RBC 4.06 L, Hgb 12.3, Hct 35.8 L, MCV 88.2, MCH 30.3, MCHC 34.4, RDW 13.2, Plt Count 173, MPV 8.2, Neut % (Auto) 65.1, Lymph % (Auto) 17.9, [place] % (Auto) 14.7 H, Eos % (Auto) 1.3, Baso % (Auto) 0.4, Neut # (Auto) 6.3, Lymph # (Auto) 1.7, [place] # (Auto) 1.4 H, Eos # (Auto) 0.1, Baso # (Auto) 0.0, Sodium 132 L, Potassium 3.8, Chloride 95 L, Carbon Dioxide 29, Anion Gap 11.8, BUN 12, Creatinine 0.80, Estimated Creat Clear 56, Estimated GFR 70, Est GFR ( Amer) 84, Glucose 175 H, Calcium 9.6, Total Bilirubin 1.3, AST 22, ALT 12, Alkaline Phosphatase 71, Troponin I < 0.01, NT-Pro-B Natriuret Pep 432, Total Protein 7.5, Albumin 4.1, Globulin 3.4 H, Albumin/Globulin Ratio 1.2, TSH 6.27 H, Thyroxine (T4) 9.5 12/02/24 20:45: VBG pH 7.43 H, VBG pCO2 39.2, VBG pO2 46.2 H, VBG HCO3 25.2, VBG Total CO2 26.4, VBG O2 Saturation 81.6 H, VBG Base Excess 0.8, VBG Lactic Acid 1.3 I & O for Last 24 hours: Intake & Output 11/29/24 11/30/24 12/01/24 12/02/24 23:59 23:59 23:59 23:59 Weight 70.67 kg *Routine HEENT Exam Head: Present normocephalic and atraumatic Eye: Present EOMI and PERRL ENT: Present mucous membranes moist and oropharynx clear *Routine Neck Exam Neck: Present supple and full ROM *Routine Respiratory Exam Respiratory: Present rhonchi (Right lobe), normal respiratory effort, able to speak in complete sentences and symmetric chest movement; Absent respiratory distress *Routine Cardiovascular Exam Cardiovascular: Present RRR, Normal S1 and Normal S2 *Routine Abdominal Exam Abdominal: Present soft and normoactive bowel sounds; Absent tenderness or distended *Routine Rectal Exam Rectal:: deferred *Routine Genitalia Exam Genitalia:: deferred *Routine Extremities Exam Extremities: Present full ROM, pulses intact and normal capillary refill; Absent edema *Routine Skin Exam Skin: Present intact, dry and warm *Routine Neurological Exam Neurological: Present alert, oriented X3 and CN II-XII intact Assessment and Plan *Assessment and plan (1) Multifocal pneumonia: Status: Acute Category: Medical Code(s): J18.9 - Pneumonia, unspecified organism Plan: CT chest per my interpretation concerning for multifocal pneumonia, bronchitis, and mucous plugging Continue IV Rocephin 1 g daily Azithromycin 250 mg daily Encourage use of incentive spirometer every hour while awake (2) Acute hypoxemic respiratory failure: Status: Acute Category: Medical Code(s): J96.01 - Acute respiratory failure with hypoxia Plan: EKG per my evaluation significant for sinus tachycardia with heart rate of 105 and incomplete right bundle branch block Xopenex 0.63 mg 3 times daily Currently on 2.5 L nasal cannula No home O2 Supplemental oxygen gentian maintain SpO2 88 to 92% (3) Adult failure to thrive: Status: Acute Category: Medical Code(s): R62.7 - Adult failure to thrive Plan: NS at 100 mL an hour Consults placed with PT/OT Encourage p.o. intake (4) Shortness of breath: Status: Acute Category: Medical Code(s): R06.02 - Shortness of breath Plan: Xopenex 0.63 mg 3 times daily Supplemental oxygen gentian maintain SpO2 88 to 92% (5) Weakness generalized: Status: Acute Category: Medical Code(s): R53.1 - Weakness Plan: NS at 100 mL an hour Multiple falls this week Decreased p.o. intake Difficulty ambulating PT/OT consult (6) Diabetes: Status: Chronic Qualifiers: Diabetes mellitus complication status: with hyperglycemia Diabetes mellitus [facility] insulin use: unspecified [facility] insulin use status Diabetes mellitus type: type 2 Qualified Code(s): E11.65 - Type 2 diabetes mellitus with hyperglycemia Category: Medical Code(s): E11.9 - Type 2 diabetes mellitus without complications Plan: Blood glucose on admission 175 Monitor blood glucose before meals and at bedtime Sliding scale insulin ADA diet Plan Spoke with Boyd in the ER and patient. My decision to admit based on multifocal pneumonia, oxygen need, multiple falls at home, impaired mobility, and generalized weakness.
[2024-12-03] VITALS (11 sets, daily range): BP systolic 126–167; BP diastolic 57–78; PULSE 68–95; RESP 12–18; TEMP 36.3–37.4; O2SAT 91–99; BMI 25.3
[2024-12-03 00:15] LABS: Troponin I < 0.01 ng/ml (0.00-0.034)
[2024-12-03] MEDS: 0.9 % SODIUM CHLORIDE 1000ML 1,000 ML 100 ML IV ×2 (00:44→11:15)
[2024-12-03] MEDS: AZITHROMYCIN 500 MG in 0.9 % SODIUM CHLORIDE 250 ML 250 MG IV (00:48)
[2024-12-03 01:13] LABS: POC Glucose,Bedside 189 (70-110)
[2024-12-03] MEDS: ACETAMINOPHEN 325MG TAB 650 MG PO (03:54)
[2024-12-03 04:29] LABS: Troponin I < 0.01 ng/ml (0.00-0.034)
--- NOTE | 2024-12-03 05:52 | PC.NURSE ---
Pt has recieved ice water and bedside tablehas been cleaned off.
[2024-12-03] MEDS: humaLOG 100 UNITS/ML 10ML VIAL (SSI) SUBCUT ×4 (06:28→20:35)
[2024-12-03 06:50] LABS: POC Glucose,Bedside 175 (70-110)
[2024-12-03 07:15] LABS: Hematocrit 31.7 % (37.0-47.0); Immature Granulocytes % 0.6 %; Mean Corpuscular HGB Conc 33.1 g/dL (31.8-35.4); Mean Corpuscular Hemoglobin 29.6 pg (27.0-31.2); Mean Corpuscular Volume 89.3 fl (81-99); Nucleated Red Blood Cells % 0 %; Platelet Count 135 K/mm3 (142-424); Red Blood Count 3.55 M/mm3 (4.20-5.40); Red Cell Distribution Width-SD 43.5 fL; White Blood Count 9.1 K/mm3 (4.8-10.8)
[2024-12-03 07:22] LABS: Hemoglobin 10.6 g/dL (12.2-16.2)
[2024-12-03 07:25] LABS: Chloride 98 mmol/L (98-107); Sodium 134 mmol/L (136-145)
[2024-12-03 07:26] LABS: Potassium 3.6 mmoL/L (3.5-5.1)
[2024-12-03 07:28] LABS: Blood Urea Nitrogen 11 mg/dl (7-17); Creatinine Clearance Estimated 55 mL/min (50-200); Creatinine,Serum 0.70 mg/dl (0.52-1.04); Estimated Glomerular Filt Rate 81 ml/min (>60); GFR (African American) 98 ML/MIN (>60)
[2024-12-03 07:29] LABS: Anion Gap 12.6 mEq/L (5-15); Calcium 8.3 mg/dl (8.4-10.2); Carbon Dioxide 27 mmol/L (22.0-30.0); Glucose 175 mg/dl (74-100)
--- NOTE | 2024-12-03 08:00 | PC.NURSE ---
Pt. was admittted overnight from the ED with c/o Pneumonia and adult failure to thrive. Pt. is alert and orientated x 4. Pt. at baseline is room air. Pt. on oxygen 2 liters N/C. Pt. getting IVF's and IV antibiotics. Pt. states that she has had a lot of falls at home. Pt. lives by herself.Once admission steps completed Pt. slept most of the night. Personal items and call christopher in reach. safety measures in place.
[2024-12-03 08:30] LABS: Hepatitis C Ab Qual. W/ RFX NEGATIVE (Negative)
[2024-12-03] MEDS: ASPIRIN EC 81MG TABLET 81 MG PO (09:10)
[2024-12-03] MEDS: IRBESARTAN 150MG TAB 150 MG PO (09:10)
[2024-12-03] MEDS: FLUOXETINE 20MG CAPSULE 40 MG PO (09:10)
[2024-12-03] MEDS: LEVOTHYROXINE 150MCG (0.15MG)TAB 150 MCG PO (09:10)
[2024-12-03] MEDS: METOPROLOL TARTRATE 25MG TABLET 25 MG PO (09:11)
[2024-12-03] MEDS: AZITHROMYCIN 250MG TABLET 250 MG PO (09:17)
--- NOTE | 2024-12-03 09:26 | HMH.PHAINT1 ---
Pharmacy Intervention Comments: MEDICATION RECONCILIATION COMPLETE USING EXTERNAL PHARMACY FILL HISTORY, RECENT PULMONOLOGY OFFICE VISIT NOTE.
[2024-12-03 11:32] LABS: Adenovirus,PCR Not Detected (NotDetected); Chlamydophila Pneumoniae, PCR Not Detected (NotDetected); Coronavirus 19, PCR Not Detected (NotDetected); Coronovirus HKU1,PCR Not Detected (NotDetected); Influenza A, PCR Not Detected (NotDetected); Influenza AH1, 2009 Not Detected (NotDetected); Influenza AH1, PCR Not Detected (NotDetected); Influenza AH3,PCR Not Detected (NotDetected); Influenza B, PCR Not Detected (NotDetected); Mycoplasma Pneumoniae, PCR Not Detected (NotDetected); Parainfluenza 1, PCR Not Detected (NotDetected); Parainfluenza 2, PCR Not Detected (NotDetected); Parainfluenza 3, PCR Not Detected (NotDetected); Parainfluenza 4, PCR Not Detected (NotDetected)
[2024-12-03 12:14] LABS: POC Glucose,Bedside 218 (70-110)
--- NOTE | 2024-12-03 12:16 | PC.NURSE ---
86% on RA placed back on 2l nc
--- NOTE | 2024-12-03 15:42 | EXP.ACUTE.PN ---
Subjective *Date: 12/03/24 *Time: 15:55 Interval history: Feeling somewhat better this morning. Still quite weak. Eating well however. No nausea or vomiting. On L, afebrile. Medical Exam Vital signs and Labs for Last 24 Hours: Vital Signs Temp Pulse Pulse Resp BP BP Pulse Ox 12/03/24 12:16 76 12/03/24 12:16 76 12/03/24 12:16 92 L 12/03/24 12:00 97.6 F 68 16 132/69 97 12/03/24 11:00 12/03/24 09:00 12/03/24 08:00 97.4 F L 91 H 16 126/57 L 96 12/03/24 08:00 12/03/24 07:00 12/03/24 06:11 81 12/03/24 06:11 77 12/03/24 06:11 91 L 12/03/24 05:00 12/03/24 04:00 98.1 F 86 14 147/76 H 98 12/03/24 03:00 12/03/24 01:00 12/03/24 00:00 99.4 F 95 H 14 167/78 H 98 12/02/24 23:03 97.9 F 103 H 16 155/71 H 12/02/24 23:00 99.4 F 95 H 14 167/78 H 95 12/02/24 22:54 106 H 155/71 H 91 L 12/02/24 22:49 83 12/02/24 22:47 16 95 12/02/24 22:30 84 143/67 H 95 12/02/24 22:00 86 157/76 H 94 L 12/02/24 21:49 89 131/75 94 L 12/02/24 21:00 101 H 152/69 H 95 12/02/24 20:41 97.9 F 109 H 16 149/82 H 92 L O2 Del Method O2 Flow Rate 12/03/24 12:16 12/03/24 12:16 12/03/24 12:16 Nasal Cannula 2 12/03/24 12:00 Nasal Cannula 12/03/24 11:00 Nasal Cannula 3 12/03/24 09:00 Nasal Cannula 2 12/03/24 08:00 Nasal Cannula 12/03/24 08:00 Nasal Cannula 2 12/03/24 07:00 Nasal Cannula 2 12/03/24 06:11 12/03/24 06:11 12/03/24 06:11 Nasal Cannula 2.5 12/03/24 05:00 Nasal Cannula 2 12/03/24 04:00 Room Air 12/03/24 03:00 Nasal Cannula 2 12/03/24 01:00 Nasal Cannula 2 12/03/24 00:00 Room Air 12/02/24 23:03 Nasal Cannula 2 12/02/24 23:00 Room Air 2.5 12/02/24 22:54 12/02/24 22:49 12/02/24 22:47 Nasal Cannula 2 12/02/24 22:30 12/02/24 22:00 12/02/24 21:49 12/02/24 21:00 12/02/24 20:41 Room Air Intake and Output 12/02/24 12/03/24 12/03/24 23:59 07:59 15:59 Intake Total 100 / 1365 1265 / 1365 Output Total 75 / 75 Balance 25 / 1290 1265 / 1290 Intake: Intake, Oral Amount 360 / 360 Intake, Total IV Amount 100 / 1005 905 / 1005 0.9 % Sodium Chloride 1000ML 1, 905 / 905 000 ml @ 100 mls/hr IV .Q10H [facility] Rx#:[id number] Ceftriaxone Sodium 1 gm In 0.9 100 / 100 % Sodium Chloride 50 ml @ 100 mls/hr IV Q24H [facility] Rx#:[id number] Output: Output, Urine Amount 75 / 75 Other: Number of Unmeasured Voids 0 0 Weight 70.67 kg 73.164 kg Patient Weight 12/03/24 23:59 Weight 73.164 kg Laboratory Results - last 24 hr 12/02/24 20:38: WBC 9.7, RBC 4.06 L, Hgb 12.3, Hct 35.8 L, MCV 88.2, MCH 30.3, MCHC 34.4, RDW 13.2, Plt Count 173, MPV 8.2, Neut % (Auto) 65.1, Lymph % (Auto) 17.9, [place] % (Auto) 14.7 H, Eos % (Auto) 1.3, Baso % (Auto) 0.4, Neut # (Auto) 6.3, Lymph # (Auto) 1.7, [place] # (Auto) 1.4 H, Eos # (Auto) 0.1, Baso # (Auto) 0.0, Sodium 132 L, Potassium 3.8, Chloride 95 L, Carbon Dioxide 29, Anion Gap 11.8, BUN 12, Creatinine 0.80, Estimated Creat Clear 56, Estimated GFR 70, Est GFR ( Amer) 84, Glucose 175 H, Calcium 9.6, Total Bilirubin 1.3, AST 22, ALT 12, Alkaline Phosphatase 71, Troponin I < 0.01, NT-Pro-B Natriuret Pep 432, Total Protein 7.5, Albumin 4.1, Globulin 3.4 H, Albumin/Globulin Ratio 1.2, TSH 6.27 H, Thyroxine (T4) 9.5 12/02/24 20:45: VBG pH 7.43 H, VBG pCO2 39.2, VBG pO2 46.2 H, VBG HCO3 25.2, VBG Total CO2 26.4, VBG O2 Saturation 81.6 H, VBG Base Excess 0.8, VBG Lactic Acid 1.3 12/02/24 23:45: POC Glucose 189 H, Troponin I < 0.01 12/03/24 03:55: Troponin I < 0.01 12/03/24 06:22: POC Glucose 175 H 12/03/24 06:40: WBC 9.1, RBC 3.55 L, Hgb 10.6 L D, Hct 31.7 L, MCV 89.3, MCH 29.6, MCHC 33.1, RDW 13.3, Plt Count 135 L, MPV 8.5, Neut % (Auto) 59.4, Lymph % (Auto) 24.2, [place] % (Auto) 14.3 H, Eos % (Auto) 1.1, Baso % (Auto) 0.4, Neut # (Auto) 5.4, Lymph # (Auto) 2.2, [place] # (Auto) 1.3 H, Eos # (Auto) 0.1, Baso # (Auto) 0.0, Sodium 134 L, Potassium 3.6, Chloride 98, Carbon Dioxide 27, Anion Gap 12.6, BUN 11, Creatinine 0.70, Estimated Creat Clear 55, Estimated GFR 81, Est GFR ( Amer) 98, Glucose 175 H, Calcium 8.3 L, HCV Ab CHRISTIAN w/Rflx PCR Qn Negative 12/03/24 08:30: Chlamy pneumoniae PCR Not detected, Adenovirus (PCR) Not detected, B. pertussis DNA (PCR) Not detected, Coronavirus OC43 (PCR) Not detected, Coronavirus HKU1 (PCR) Not detected, Coronavirus 229E (PCR) Not detected, SARS-CoV-2 (PCR) Not detected, Coronavirus NL63 (PCR) Not detected, Human Metapneumovir PCR Not detected, Influenza A (H1) PCR Not detected, Influ A (H1N1/09) PCR Not detected, Influenza A (H3) PCR Not detected, Influenza Type A (PCR) Not detected, Influenza Type B (PCR) Not detected, M. pneumoniae (PCR) Not detected, Parainfluenza 1 (PCR) Not detected, Parainfluenza 2 (PCR) Not detected, Parainfluenza 3 (PCR) Not detected, Parainfluenza 4 (PCR) Not detected, RSV (PCR) Not detected, Entero/Rhino (PCR) Not detected 12/03/24 11:19: POC Glucose 218 H I & O for Labs for Last 24 Hours: Intake & Output 11/30/24 12/01/24 12/02/24 12/03/24 23:59 23:59 23:59 23:59 Intake Total 1365 / 1365 Output Total 75 / 75 Balance 1290 / 1290 Weight 70.67 kg 73.164 kg Assessment and Plan *Assessment and plan (1) Multifocal pneumonia: Status: Acute Category: Medical Code(s): J18.9 - Pneumonia, unspecified organism Plan: CT chest per my interpretation concerning for multifocal pneumonia, bronchitis, and mucous plugging Continue IV Rocephin 1 g daily Continue azithromycin 250 mg daily Encourage use of incentive spirometer every hour while awake Xopenex scheduled 3 times a day (2) Acute hypoxemic respiratory failure: Status: Acute Category: Medical Code(s): J96.01 - Acute respiratory failure with hypoxia Plan: Currently on 2.5 L nasal cannula, goal sats greater than 90% No home O2 (3) Adult failure to thrive: Status: Acute Category: Medical Code(s): R62.7 - Adult failure to thrive Plan: Tolerating p.o. intake. PT and OT consulted to evaluate. Awaiting placement recommendations versus home health (4) Shortness of breath: Status: Acute Category: Medical Code(s): R06.02 - Shortness of breath (5) Weakness generalized: Status: Acute Category: Medical Code(s): R53.1 - Weakness Plan: NS at 100 mL an hour Multiple falls this week Decreased p.o. intake Difficulty ambulating PT/OT consult (6) Diabetes: Status: Chronic Qualifiers: Diabetes mellitus complication status: with hyperglycemia Diabetes mellitus snf insulin use: unspecified terminal supervisor insulin use status Diabetes mellitus type: type 2 Qualified Code(s): E11.65 - Type 2 diabetes mellitus with hyperglycemia Category: Medical Code(s): E11.9 - Type 2 diabetes mellitus without complications Plan: Morning glucose 175, A1c ordered for the morning. Continue sliding scale insulin with fingersticks ACHS. -Diabetic diet -Continue long-acting insulin with Lantus 20 units nightly (7) Bipolar 1 disorder: Status: Acute Category: Medical Code(s): F31.9 - Bipolar disorder, unspecified (8) Hypertension: Status: Chronic Qualifiers: Hypertension type: primary hypertension Qualified Code(s): I10 - Essential (primary) hypertension Category: Medical Code(s): I10 - Essential (primary) hypertension (9) Hypothyroidism: Status: Chronic Qualifiers: Hypothyroidism type: acquired Qualified Code(s): E03.9 - Hypothyroidism, unspecified Category: Medical Code(s): E03.9 - Hypothyroidism, unspecified Plan White count improved to 9.1, hemoglobin 10.6. Kidney function normal BUN 11, creatinine 0.7. Repeat CBC, CMP, magnesium ordered for the morning. Continue levothyroxine 150 mcg daily for hypothyroid Continue Lamictal 200 mg daily for mood Continue Lasix 40 mg daily p.o. for hypertension and volume overload Resume Wixela daily Continue Wellbutrin 150 mg daily along with Prozac 40 mg daily for mood disorder Continue losartan 100 mg daily for hypertension Full code Diabetic
--- NOTE | 2024-12-03 16:12 | PC.NURSE ---
Pt is currently on 2L NC with O2 sats in lower 90s. She states she still feels weak and appetite is fair. She states she ate better at lunch. Trufack is in place. Pt states she had a BM today. VSS. Call light within reach.
[2024-12-03 16:27] LABS: POC Glucose,Bedside 176 (70-110)
[2024-12-03] MEDS: MULTIVITAMIN TABLET 1 EACH PO (17:06)
[2024-12-03] MEDS: MONTELUKAST SODIUM 10MG TAB 10 MG PO (17:06)
--- OUTSIDE RECORDS SUMMARY | 2024-12-03 18:31 | XMS_ITS | Referral Summary ---
Author Organization [employer] Address [address] [place] [address] Care Team Providers Care Stoker Mechanic Name Role Phone Jessie Fine MD Unavailable Allergies Active Allergy Reactions Criticality Noted Date [...] Date Kt rded Speak language other than Romanian at home Not on file 06/16/2023 Want [...] on file Insurance MEDICARE [place] [address] [address] [id number] Care Teams Stoker Mechanic Relationship Specialty Start Date End Date Jessie Fine MD [address] [place] [address] Referring Physician Hematology and Oncology 10/16/22
--- OUTSIDE RECORDS SUMMARY | 2024-12-03 18:31 | XMS_ITS | Clinical Summary ---
Author Organization [employer] Address [address] [place] [address] Care Team Providers Care Gray Mixing Operator Name Role Phone Jessie Fine MD Unavailable [phone] Allergies Active Allergy Reactions Criticality Noted [...] on file 06/16 Educational Attainment Answer Date Tk rded Speak language other than Palestinian at home Not on file 06/16/2023 Want [...] Insurance MEDICARE PART A B Care Teams Gray Mixing Operator Relationship Specialty Start Date End Date Jessie Fine MD [address] [place] [id number] Referring Physician Hematology and Oncology 10/16/22
--- OUTSIDE RECORDS SUMMARY | 2024-12-03 18:31 | XMS_ITS | Encounter Summary ---
Author Organization [facility] [employer] Address [address] [place] [address] Care Team Providers Care Lactation Specialist Name Role Phone Jessie Fine MD Unavailable [phone] Encounter Details Date Type Department Care Team (Late st Contact Info) Description 10/14/2022 Telephone [facility] - [address] [place] [address] [facility], [place] Social History Tobacco Use Types Packs/Day Years [...] on filedocumented in this encounter Care Teams Lactation Specialist Relationship Specialty Start Date End Date Jessie Fine MD [address] [place] [address] Referring Physician Hematology and Oncology 10/16/22 documented as of this encounter
--- NOTE | 2024-12-03 18:54 | PC.NURSE ---
Lab called for Blood Cx.
[2024-12-03] MEDS: PRAVASTATIN 40MG TAB 40 MG PO (20:34)
[2024-12-03] MEDS: INSULIN GLARGINE 100 UNITS/ML 3ML FLEXPEN 20 UNIT SUBCUT (20:35)
[2024-12-03 20:53] LABS: POC Glucose,Bedside 177 (70-110)
[2024-12-04] VITALS (7 sets, daily range): BP systolic 130–170; BP diastolic 56–99; PULSE 66–94; RESP 16–18; TEMP 36.6–36.9; O2SAT 91–99; BMI 25.4
[2024-12-04 06:09] LABS: POC Glucose,Bedside 116 (70-110)
[2024-12-04] MEDS: LEVOTHYROXINE 150MCG (0.15MG)TAB 150 MCG PO (06:20)
--- NOTE | 2024-12-04 06:34 | PC.NURSE ---
Patient alert and oriented throught out the night. patient is wearing 2l nasal cannula. patient has an order for a sputum culture but at this time patient isn't able to cough up anything. Patient has slept all night with no issues. Patient has used the incentive spirometer when awake.
[2024-12-04 07:38] LABS: Hematocrit 32.1 % (37.0-47.0); Hemoglobin 10.7 g/dL (12.2-16.2); Immature Granulocytes % 0.8 %; Mean Corpuscular HGB Conc 33.3 g/dL (31.8-35.4); Mean Corpuscular Hemoglobin 29.7 pg (27.0-31.2); Mean Corpuscular Volume 89.2 fl (81-99); Nucleated Red Blood Cells % 0 %; Platelet Count 148 K/mm3 (142-424); Red Blood Count 3.60 M/mm3 (4.20-5.40); Red Cell Distribution Width-SD 42.4 fL; White Blood Count 7.4 K/mm3 (4.8-10.8)
[2024-12-04 07:47] LABS: Albumin Level 3.6 g/dl (3.5-5.0); Chloride 97 mmol/L (98-107); Potassium 3.7 mmoL/L (3.5-5.1); Sodium 135 mmol/L (136-145)
[2024-12-04 07:49] LABS: Blood Urea Nitrogen 9 mg/dl (7-17); Creatinine Clearance Estimated 56 mL/min (50-200); Creatinine,Serum 0.70 mg/dl (0.52-1.04); Estimated Glomerular Filt Rate 81 ml/min (>60); GFR (African American) 98 ML/MIN (>60)
[2024-12-04 07:50] LABS: Alanine Aminotransferase 11 U/L (12-78); Albumin/Globulin Ratio 1.2 (1.1-1.8); Alkaline Phosphatase 67 U/L (38-126); Anion Gap 12.7 mEq/L (5-15); Aspartate Amino Transferase 20 U/L (14-36); Bilirubin,Total 0.6 mg/dl (0.2-1.3); Calcium 8.5 mg/dl (8.4-10.2); Carbon Dioxide 29 mmol/L (22.0-30.0); Globulin 2.9 g/dL (1.3-3.2); Glucose 126 mg/dl (74-100); Magnesium 1.7 mg/dl (1.6-2.3); Total Protein,Serum 6.5 g/dl (6.3-8.2)
[2024-12-04] MEDS: AZITHROMYCIN 250MG TABLET 250 MG PO (08:55)
[2024-12-04] MEDS: SPIRONOLACTONE 25MG TABLET 25 MG PO (08:56)
[2024-12-04] MEDS: IRBESARTAN 150MG TAB 150 MG PO (08:56)
[2024-12-04] MEDS: FLUOXETINE 20MG CAPSULE 40 MG PO (08:56)
[2024-12-04] MEDS: ASPIRIN EC 81MG TABLET 81 MG PO (08:56)
[2024-12-04] MEDS: METOPROLOL TARTRATE 25MG TABLET 25 MG PO (08:56)
--- NOTE | 2024-12-04 09:07 | HMH.OTEV ---
OT Inpatient Evaluation Rehab OT IP Evaluation Start: 12/02/24 22:35 Freq: ONCE Status: Active Protocol: Document 12/04/24 08:58 [email or web address] (Rec: 12/04/24 09:07 LAY [id number]) Rehab OT IP Assessment Subjective History Ms. Hidalgo is a 74-year-old female presents ER with complaints of dizziness. Patient has a past medical history of asthma, vertigo, interstitial lung disease, bipolar disorder, hypertension, diabetes, and hypothyroidism. Patient states she has been dizzy off- and-on for months. She states she was diagnosed with vertigo and prescribed meclizine that she takes for her symptoms. She states she was more dizzy today and felt like she could not stand. She also reports dry cough, headache, lightheadedness, and shortness of breath worse from baseline. Patient reports some vomiting few days ago that has resolved. She also reports multiple falls and having to call for lift this 6 to 4-5 times this week. Reports she has not been eating and drinking very well. She denies home O2 use. Patient denies fever/chills, congestion, runny nose, chest pain, diarrhea, constipation, headache, or syncope. I'm having a hard time at home getting ready. I am falling alot. Lives alone on [address]st floor apt. Independent with ADLs but reported having difficulty completing tasks. Neighbors assist with outside appts. Subjective I feel weak. Instructed Patient on proper hand and foot placement to complete bed mobility from supine->sit @ EOB->SPT to recliner with RW. Patient required Min A to complete all tasks. Left Patient sitting upright in recliner with needs met at end of session. Objective Patient Orientation Person,Place,Age,Birthday,Month,Year Right Upper WFL Extremity Gross ROM Left Upper Extremity WFL Gross ROM Bed Mobility bed mobility - supine/sit Assist Level Minimal x 1 (25% assist) Transfer Training Sit/Stand/Pivot Transfer Assist Level Minimal x 1 (25% assist) Chair Transfer Minimal x 1 (25% assist) Ability Chair Transfer Sit to/from Ambulatory Technique Chair Transfer Rolling Walker Assistive Devices Lower Body Dressing Maximum Assistance Ability Rehab OT IP prob,goals,plan Problems Date of Evaluation: 12/04/24 OT IP Problems Bed Mobility,Transfers,Balance,Self care,Safety Rehab Potential Rehab Potential Good Equipment Needs Assistive Devices Rolling / Wheeled Walker Plan OT intervention Plan Bed Mobility,Transfers,Balance,Self care,Safety, Therapeutic Exercise OT Plan Frequency Daily Duration LOS Discharge Goals Bed Mobility Ability Assistance x1 Sit to Stand Chair Contact Guard/Hand Hold Transfer Ability Chair Transfer Contact Guard/Hand Hold Ability Chair Transfer Sit to/from Ambulatory Technique Chair Transfer Rolling Walker Assistive Devices Discharge Plan OT Discharge Plan Patient to continue skilled OT IP services while here at [facility]. Recommend placement rehab after medical d/c in order to improve independence with ADLs and fx'l mobility. Eval Complexity Eval Charge Codes 02196 - Low Complexity PHYSICIAN CERTIFICATION: I certify the specified therapy services for Sweetie Alvarado Rocky are required, authorized, and reviewed every 30 days.
--- NOTE | 2024-12-04 09:12 | EXP.PULM.CON ---
History of Present Illness History of present illness: Ms. Hidalgo is a 74-year-old female with reported history of asthma interstitial lung disease hypertension diabetes hypothyroidism presented to the ER complaining of dizziness cough worsening shortness of breath and pulmonary was called for further evaluation and management. [facility] Disclaimer: The information contained in this section may have been updated after the patient was seen, as this information can be updated by other users. Medical History (Updated 12/04/24 @ 11:43 by Jonas Topete MD) Acute and chronic respiratory failure with hypoxia History of smoking 10-25 pack years ILD (interstitial lung disease) Asthma Vertigo Dizziness Acute UTI Asthma exacerbation Anxiety Bipolar 1 disorder Hypertension History of mastoiditis Vertigo Diabetes Postsurgical fever Hypothyroidism Surgical History History of tubal ligation History of colonoscopy History of cholecystectomy Family History Other COPD (chronic obstructive pulmonary disease) Cancer Hypertension Thyroid disorder Social History (Updated 12/03/24 @ 00:17 by Vijaya Downs RN) Smoking Status: Former smoker years smoked: 14 smoking status stop date: 1993 second hand exposure: Yes alcohol intake: never substance use type: marijuana current occupational status: retired Travel in the last 8 weeks?: None household members: none housing: house 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 current occupational exposures/hazards: No caffeine: Yes Have you lived/traveled outside [place] in past 30 days?: No Contact w/someone who lives/traveled outside [place] past 30 days?: No Exposure to someone with infectious disease in past 14 days?: No Do you have a fever (greater than 100.4 F or 38 C)?: No Have you tested positive for COVID-19?: No Exposed to someone with COVID-19 in past 14 days?: No Do you have a sore throat?: No Do you have a cough?: No Do you have any weakness?: No Are you experiencing any nausea/vomitting?: No Do you have any diarrhea?: No Are you experiencing any unusual bleeding?: No Do you have any muscle aches/pain?: No Do you have any abdominal pain?: No Are you experiencing loss of taste or smell?: No Review of Systems Constitutional Constitutional: Reports fatigue, Reports headache(s), Reports lethargy and Reports weakness Comments: Frequent falls Eyes Eyes: Denies eye discharge, Denies dry eyes, Denies irritation and Denies itchy eyes ENT Ears, Nose, Mouth, and Throat: Reports headache(s), Denies lip swelling, Denies throat swelling and Reports vertigo *Cardiovascular Cardiovascular: Reports dyspnea and Reports dyspnea on exertion *Respiratory Respiratory: Denies change in phlegm color, Reports chest congestion, Reports cough, Reports dyspnea, Reports dyspnea on exertion, Reports excessive phlegm production and Denies wheezing *Gastrointestinal Gastrointestinal: Denies abdominal pain, Denies belching and Denies cramping *Musculoskeletal Musculoskeletal: Reports back pain, Reports muscle weakness, Reports myalgias and Reports other (No small joint swelling or Pain) *Neurologic Neurologic: Reports headache(s), Reports vertigo and Reports weakness Psychiatric Psychiatric: Denies homicidal ideation and Denies suicidal ideation Endocrine Endocrine: Reports fatigue and Denies heat intolerance Hematologic/Lymphatic Hematologic/Lymphatic: Denies easy bleeding and Denies lymphadenopathy Allergic/Immunologic Allergic/Immunologic: Denies itchy eyes, Denies lip swelling, Denies throat swelling and Denies wheezing Pulmonology Exam Inpatient Vital signs and Labs for Last 24 Hours: Temp Pulse Resp BP Pulse Ox O2 Del Method O2 Flow Rate 98.5 F 86 17 152/99 H 96 Nasal Cannula 2 12/04/24 08:00 12/04/24 08:00 12/04/24 08:00 12/04/24 08:00 12/04/24 08:00 12/04/24 08:00 12/04/24 08:00 FiO2 28 12/03/24 20:11 Laboratory Results - last 24 hr 12/03/24 08:30: Chlamy pneumoniae PCR Not detected, Adenovirus (PCR) Not detected, B. pertussis DNA (PCR) Not detected, Coronavirus OC43 (PCR) Not detected, Coronavirus HKU1 (PCR) Not detected, Coronavirus 229E (PCR) Not detected, SARS-CoV-2 (PCR) Not detected, Coronavirus NL63 (PCR) Not detected, Human Metapneumovir PCR Not detected, Influenza A (H1) PCR Not detected, Influ A (H1N1/09) PCR Not detected, Influenza A (H3) PCR Not detected, Influenza Type A (PCR) Not detected, Influenza Type B (PCR) Not detected, M. pneumoniae (PCR) Not detected, Parainfluenza 1 (PCR) Not detected, Parainfluenza 2 (PCR) Not detected, Parainfluenza 3 (PCR) Not detected, Parainfluenza 4 (PCR) Not detected, RSV (PCR) Not detected, Entero/Rhino (PCR) Not detected 12/03/24 11:19: POC Glucose 218 H 12/03/24 16:10: POC Glucose 176 H 12/03/24 20:33: POC Glucose 177 H 12/04/24 05:57: POC Glucose 116 H 12/04/24 06:57: WBC 7.4, RBC 3.60 L, Hgb 10.7 L, Hct 32.1 L, MCV 89.2, MCH 29.7, MCHC 33.3, RDW 12.9, Plt Count 148, MPV 8.4, Neut % (Auto) 56.5, Lymph % (Auto) 25.4, [place] % (Auto) 12.6 H, Eos % (Auto) 4.3, Baso % (Auto) 0.4, Neut # (Auto) 4.2, Lymph # (Auto) 1.9, [place] # (Auto) 0.9, Eos # (Auto) 0.3, Baso # (Auto) 0.0, Sodium 135 L, Potassium 3.7, Chloride 97 L, Carbon Dioxide 29, Anion Gap 12.7, BUN 9, Creatinine 0.70, Estimated Creat Clear 56, Estimated GFR 81, Est GFR ( Amer) 98, Glucose 126 H, Calcium 8.5, Magnesium 1.7, Total Bilirubin 0.6, AST 20, ALT 11 L, Alkaline Phosphatase 67, Total Protein 6.5, Albumin 3.6 D, Globulin 2.9, Albumin/Globulin Ratio 1.2 I & O for Labs for Last 24 Hours: Intake & Output 12/01/24 12/02/24 12/03/24 12/04/24 23:59 23:59 23:59 23:59 Intake Total 2062 470 / 470 Output Total 200 / 200 550 / 550 Balance 1862 -80 / -80 Weight 155 lb 12.8 oz 161 lb 4.8 oz 162 lb 1.6 oz Constitutional: Present moderate distress Head: Present normocephalic and atraumatic ENT: Present normal exam, normal oropharynx and mucous membranes moist Neck: Present normal inspection and full ROM Respiratory: Present able to speak in complete sentences; Absent respiratory distress, wheezes or diminished air movement Cardiac: Present S1/S2, Tachycardia and radial pulses present GI: Present soft and distention; Absent tenderness or guarding Rectal (female): Present deferred (female): Present deferred Skin: Present intact; Absent cyanosis or jaundice Neuro: Present alert, awake and oriented x 3 Extremities: Present normal inspection; Absent clubbing or cyanosis Psychiatric: Present normal affect and cooperative Meds Home Medications and Allergies Home Medications ?Medication ?Instructions ?Recorded ?Confirmed ?Type montelukast 10 mg tablet 10 mg PO PM 11/16/18 12/03/24 History simvastatin 20 mg tablet 20 mg PO HS 11/16/18 12/03/24 History losartan 100 mg tablet 100 mg PO DAILY 02/17/23 12/03/24 History lamotrigine 200 mg tablet 200 mg PO AM 04/25/24 12/03/24 History levothyroxine 150 mcg tablet 150 mcg PO DAILYDM 04/25/24 12/03/24 History furosemide 40 mg tablet (Lasix) 40 mg PO DAILY PRN Leg edema #30 05/09/24 12/03/24 Rx tabs spironolactone 25 mg tablet 25 mg PO DAILY 30 days #30 tabs 05/09/24 12/03/24 Rx aspirin 81 mg capsule 81 mg PO DAILY 05/21/24 12/03/24 History biotin 10,000 mcg chewable tablet 10,000 mcg PO DAILY Supplement 05/21/24 12/03/24 History (Hair, Skin and Nails (biotin)) multivitamin with minerals-folic 1 tab PO DAILY Supplement 05/21/24 12/03/24 History acid 12 mcg chewable tablet (Centrum Adults) fluoxetine 40 mg capsule 40 mg PO DAILY 08/07/24 12/03/24 History hydroxyzine pamoate 25 mg capsule 50 mg PO Q6HP PRN Anxiety 08/07/24 12/03/24 History insulin degludec 200 unit/mL (3 30 unit SQ HS 08/07/24 12/03/24 History mL) subcutaneous pen (Tresiba FlexTouch U-200 insulin) meclizine 25 mg tablet 25 mg PO TIDP PRN Dizziness Or 08/07/24 12/03/24 History Vertigo albuterol sulfate 90 mcg/actuation 2 inh inhalation Q6H PRN shortness 11/15/24 12/03/24 Rx aerosol inhaler of breath or wheezing 90 days #8.5 grams bupropion HCl 150 mg tablet,12 hr 150 mg PO DAILY 12/03/24 12/03/24 History sustained-release fluticasone 250 mcg-salmeterol 50 1 inh inhalation BIDRT 12/03/24 12/03/24 History mcg/dose blistr powdr for inhalation (Wixela Inhub) metoprolol tartrate 25 mg tablet 25 mg PO DAILY 12/03/24 12/03/24 History ondansetron 4 mg disintegrating 4 mg PO Q8HP PRN nausea and 12/03/24 12/03/24 History tablet vomiting New Prescriptions to Start Prescriptions: Allergies Allergy/AdvReac Type Severity Reaction Status Date / Time No Known Allergies Allergy Verified 08/07/24 14:21 Results Laboratory Findings 12/04/24 06:57 12/04/24 06:57 Abnormal lab findings: Abnormal Labs 12/02/24 12/02/24 12/02/24 20:38 20:45 23:45 RBC 4.06 L Hgb Hct 35.8 L Plt Count [place] % (Auto) 14.7 H [place] # (Auto) 1.4 H VBG pH 7.43 H VBG pO2 46.2 H VBG O2 Saturation 81.6 H Sodium 132 L Chloride 95 L Glucose 175 H POC Glucose 189 H Calcium ALT Globulin 3.4 H TSH 6.27 H 12/03/24 12/03/24 12/03/24 06:22 06:40 11:19 RBC 3.55 L Hgb 10.6 L D Hct 31.7 L Plt Count 135 L [place] % (Auto) 14.3 H [place] # (Auto) 1.3 H VBG pH VBG pO2 VBG O2 Saturation Sodium 134 L Chloride Glucose 175 H POC Glucose 175 H 218 H Calcium 8.3 L ALT Globulin TSH 12/03/24 12/03/24 12/04/24 16:10 20:33 05:57 RBC Hgb Hct Plt Count [place] % (Auto) [place] # (Auto) VBG pH VBG pO2 VBG O2 Saturation Sodium Chloride Glucose POC Glucose 176 H 177 H 116 H Calcium ALT Globulin TSH 12/04/24 06:57 RBC 3.60 L Hgb 10.7 L Hct 32.1 L Plt Count [place] % (Auto) 12.6 H [place] # (Auto) VBG pH VBG pO2 VBG O2 Saturation Sodium 135 L Chloride 97 L Glucose 126 H POC Glucose Calcium ALT 11 L Globulin TSH Assessment and Plan *Assessment and plan (1) Acute and chronic respiratory failure with hypoxia: Status: Acute Category: Medical Code(s): J96.21 - Acute and chronic respiratory failure with hypoxia (2) CAP (community acquired pneumonia): Status: Resolved Category: Medical Code(s): J18.9 - Pneumonia, unspecified organism Plan Ms. Hidalgo is a 74-year-old female with reported history of asthma interstitial lung disease hypertension diabetes hypothyroidism presented to the ER complaining of dizziness cough worsening shortness of breath and pulmonary was called for further evaluation and management. Patient last seen in pulmonary clinic May 2020 for using Advair 500 inhaler and oxygen supplementation at night pending PFT walk testing evaluation, not done yet. CTA, no evidence of pulmonary embolism and central artery. Suboptimal study. Bilateral diffuse patchy airspace disease. Afebrile. Hemodynamically stable. No evidence of leukocytosis. Comprehensive respiratory viral PCR panel negative. Currently being managed for community-acquired pneumonia with ceftriaxone and azithromycin. On examination patient denies any prominent respiratory symptoms. Admits symptoms at baseline. Plan: Continue Advair 500 inhaler along with DuoNebs 4 times daily as needed Continue ceftriaxone azithromycin for community-acquired pneumonia pending sputum culture results Continue oxygen supplementation to maintain O2 saturation 90% and above, weaned to 1 L this morning. Will continue to wean as tolerated.
[2024-12-04 09:18] LABS: Hemoglobin A1C 8.9 % (4.0-6.0)
--- NOTE | 2024-12-04 10:10 | SW/DCPLANNER ---
Addendum entered by Mary Lloyd 12/04/24 12:34: [facility] stated that she can accept this patient tomorrow SNF level of care. Original Note: I spoke w/ patient regarding plans once medically stable for discharge. PT evaluated and recommended SNF level of care. Patient is agreeable to placement at this time and prefers [facility] location. Patient does not have an agency preference. I will fax information to [facility] and [facility]. Discharge date is unknown at this time. I will continue to follow up.
--- NOTE | 2024-12-04 10:40 | HMH.PTEV ---
Physical Therapy Evaluation Rehab PT IP Evaluation Start: 12/02/24 22:35 Freq: ONCE Status: Active Protocol: Document 12/04/24 10:34 ARGENTINA (Rec: 12/04/24 10:39 ARGENTINA [id number]) Subjective/History History History Per H&P: Ms. Hidalgo is a 74-year-old female presents ER with complaints of dizziness. Patient has a past medical history of asthma, vertigo, interstitial lung disease, bipolar disorder, hypertension, diabetes, and hypothyroidism. Patient states she has been dizzy off-and-on for months. She states she was diagnosed with vertigo and prescribed meclizine that she takes for her symptoms. She states she was more dizzy today and felt like she could not stand. She also reports dry cough, headache, lightheadedness, and shortness of breath worse from baseline. Patient reports some vomiting few days ago that has resolved. She also reports multiple falls and having to call for lift this 6 to 4-5 times this week. Reports she has not been eating and drinking very well. She denies home O2 use. Patient denies fever/ chills, congestion, runny nose, chest pain, diarrhea, constipation, headache, or syncope. Subjective Subjective PLOF: IND with mobility. half a dozen falls in the past month. Home: Lives alone in a single-story home with no DA. Available assistance: No 24/ assistance reported. Has a sister that she lives next to. [facility] How much help from another person do you currently need... Turning from your A little back to your side while in a flat bed without using bedrails? Moving from lying on A little back to sitting on the side of a flat bed without using bedrails? Moving to and from a A little bed to a chair ( including a wheelchair)? Standing up from a A little chair using your arms? (e.g., wheelchair, bedside chair) Walking in hospital A little room? Climbing 3-5 steps A lot with a railing? Mobility Score 17 Mobility Level Watt Sanchez Mobility 5 Stand (1 or more minutes) Mobility Calculator Rehab PT IP Eval Objective Appearance Patient Behavior Appropriate,Cooperative Patient Orientation Person,Place Difficulty following none instructions Speech Pattern Clear Ambulation Patient Able to No Ambulate Balance Ability to Arise Able, uses arms to help Sitting Balance Steady, safe Standing Balance Unsteady Dynamic Sitting Good Balance Ability Dynamic Standing Poor Balance Ability Transfers Bed Transfer Ability Minimal x 1 (25% assist) Chair Transfer Minimal x 1 (25% assist) Ability Sit to Stand Bed Minimal x 1 (25% assist) Transfer Ability Rehab PT IP prob,goals,plan Problems Date of Evaluation: 12/04/24 PT IP Problems Bed Mobility,Transfers,Gait,Balance,Self care,Safety Rehab Potential Rehab Potential Good Plan PT Intervention Plan Bed Mobility,Transfers,Gait,Balance,Self care,Safety, Therapeutic Exercise Other Intervention 1-2 times Plan PT Plan Frequency Daily Duration LOS Discharge Goals Bed Transfer Ability Supervision/Stand by Sit to Stand Chair Supervision/Stand by Transfer Ability Discharge Plan PT Discharge Plan Initial physical therapy evaluation performed. Patient presents below baseline at this time in functional mobility, transfers, and strength. Pt not safe to return home at this time d/t current level of functional mobility. PT recommending short-term rehabilitation stay upon d/c from [facility]. Pt would benefit from skilled PT while at [facility] to prevent further functional decline and maximize safety with mobility. Eval Complexity Eval Charge Codes 07684 - Moderate Complexity PHYSICIAN CERTIFICATION: I certify the specified therapy services for Sweetie Hidalgo are required, authorized, and reviewed every 30 days.
[2024-12-04] MEDS: humaLOG 100 UNITS/ML 10ML VIAL (SSI) SUBCUT ×2 (12:14→20:11)
[2024-12-04] MEDS: SODIUM CHLORIDE 3% 15ML NEB 3 ML IH (12:29)
[2024-12-04 12:34] LABS: POC Glucose,Bedside 254 (70-110)
--- NOTE | 2024-12-04 13:42 | P.PN_ITS ---
Subjective *Date: 12/04/24 *Time: 13:42 Interval history: Patient is somewhat better today. Stable on 2 L oxygen. Sats in the mid 90s. Denies nausea or vomiting. Cough nonproductive. Pulmonology evaluating today. Therapy evaluating, would benefit from placement. Medical Exam Vital signs and Labs for Last 24 Hours: Vital Signs Temp Pulse Pulse Resp BP Pulse Ox O2 Del Method 12/04/24 13:00 Nasal Cannula 12/04/24 12:31 18 12/04/24 11:00 Nasal Cannula 12/04/24 09:00 Nasal Cannula 12/04/24 08:00 98.5 F 86 17 152/99 H 96 Nasal Cannula 12/04/24 07:44 Nasal Cannula 12/04/24 06:33 Nasal Cannula 12/04/24 05:43 80 12/04/24 05:43 86 12/04/24 05:43 99 Nasal Cannula 12/04/24 05:00 Nasal Cannula 12/04/24 04:00 97.9 F 94 H 16 170/86 H 94 L Room Air 12/04/24 02:55 Nasal Cannula 12/04/24 01:00 Nasal Cannula 12/03/24 23:00 Nasal Cannula 12/03/24 21:00 Nasal Cannula 12/03/24 20:11 Nasal Cannula 12/03/24 20:11 73 12/03/24 20:10 71 12/03/24 20:00 98.7 F 87 12 150/78 H 96 Room Air 12/03/24 19:46 96 Nasal Cannula 12/03/24 18:53 Nasal Cannula 12/03/24 17:00 Nasal Cannula 12/03/24 16:00 98.3 F 75 18 154/75 H 99 Nasal Cannula 12/03/24 15:00 Nasal Cannula O2 Flow Rate FiO2 12/04/24 13:00 2 12/04/24 12:31 12/04/24 11:00 2 12/04/24 09:00 2 12/04/24 08:00 2 12/04/24 07:44 2 12/04/24 06:33 2 12/04/24 05:43 12/04/24 05:43 12/04/24 05:43 2 12/04/24 05:00 2 12/04/24 04:00 12/04/24 02:55 2 12/04/24 01:00 2 12/03/24 23:00 2 12/03/24 21:00 2 12/03/24 20:11 2 28 12/03/24 20:11 12/03/24 20:10 12/03/24 20:00 12/03/24 19:46 2 12/03/24 18:53 2 12/03/24 17:00 2 12/03/24 16:00 2 12/03/24 15:00 2 Intake and Output 12/03/24 12/04/24 12/04/24 23:59 07:59 15:59 Intake Total 698 / 2113 50 / 470 420 / 470 Output Total 125 / 200 550 / 550 Balance 573 / 1913 -500 / -80 420 / -80 Intake: Intake, Oral Amount 270 / 630 420 / 420 Intake, Total IV Amount 428 / 1483 50 / 50 0.9 % Sodium Chloride 1000ML 1, 428 / 1333 000 ml @ 100 mls/hr IV .Q10H [facility] Rx#:[id number] Ceftriaxone Sodium 1 gm In 0.9 50 / 50 % Sodium Chloride 50 ml @ 100 mls/hr IV Q24H [facility] Rx#:[id number] Output: Output, Urine Amount 125 / 200 550 / 550 Other: Number of Unmeasured Voids 0 0 Number of Bowel Movements 2 Weight 73.527 kg Patient Weight 12/04/24 23:59 Weight 73.527 kg Laboratory Results - last 24 hr 12/03/24 08:30: Chlamy pneumoniae PCR Not detected, Adenovirus (PCR) Not detected, B. pertussis DNA (PCR) Not detected, Coronavirus OC43 (PCR) Not detected, Coronavirus HKU1 (PCR) Not detected, Coronavirus 229E (PCR) Not detected, SARS-CoV-2 (PCR) Not detected, Coronavirus NL63 (PCR) Not detected, Human Metapneumovir PCR Not detected, Influenza A (H1) PCR Not detected, Influ A (H1N1/09) PCR Not detected, Influenza A (H3) PCR Not detected, Influenza Type A (PCR) Not detected, Influenza Type B (PCR) Not detected, M. pneumoniae (PCR) Not detected, Parainfluenza 1 (PCR) Not detected, Parainfluenza 2 (PCR) Not detected, Parainfluenza 3 (PCR) Not detected, Parainfluenza 4 (PCR) Not detected, RSV (PCR) Not detected, Entero/Rhino (PCR) Not detected 12/03/24 16:10: POC Glucose 176 H 12/03/24 20:33: POC Glucose 177 H 12/04/24 05:57: POC Glucose 116 H 12/04/24 06:57: WBC 7.4, RBC 3.60 L, Hgb 10.7 L, Hct 32.1 L, MCV 89.2, MCH 29.7, MCHC 33.3, RDW 12.9, Plt Count 148, MPV 8.4, Neut % (Auto) 56.5, Lymph % (Auto) 25.4, [place] % (Auto) 12.6 H, Eos % (Auto) 4.3, Baso % (Auto) 0.4, Neut # (Auto) 4.2, Lymph # (Auto) 1.9, [place] # (Auto) 0.9, Eos # (Auto) 0.3, Baso # (Auto) 0.0, Sodium 135 L, Potassium 3.7, Chloride 97 L, Carbon Dioxide 29, Anion Gap 12.7, BUN 9, Creatinine 0.70, Estimated Creat Clear 56, Estimated GFR 81, Est GFR ( Amer) 98, Glucose 126 H, Hemoglobin A1c 8.9 H, Calcium 8.5, Magnesium 1.7, Total Bilirubin 0.6, AST 20, ALT 11 L, Alkaline Phosphatase 67, Total Protein 6.5, Albumin 3.6 D, Globulin 2.9, Albumin/Globulin Ratio 1.2 12/04/24 12:10: POC Glucose 254 H I & O for Labs for Last 24 Hours: Intake & Output 12/01/24 12/02/24 12/03/24 12/04/24 23:59 23:59 23:59 23:59 Intake Total 2062 470 / 470 Output Total 200 / 200 550 / 550 Balance 1862 -80 / -80 Weight 70.67 kg 73.164 kg 73.527 kg Constitutional: Present no acute distress, average body habitus, chronically ill appearing and cooperative Head: Present atraumatic and normocephalic ENT: Present normal exam Respiratory: Present prolonged expiratory phase and wheezes (Diffuse); Absent respiratory distress, rhonchi or crackles Cardiac: Present Reg Rate and Rhythm GI: Present soft; Absent distention or tenderness Skin: Present intact; Absent cyanosis Neuro: Present Grossly Intact, alert, awake, oriented x 3 and moves all extremities Assessment and Plan *Assessment and plan (1) Multifocal pneumonia: Status: Acute Category: Medical Code(s): J18.9 - Pneumonia, unspecified organism (2) Acute hypoxemic respiratory failure: Status: Acute Category: Medical Code(s): J96.01 - Acute respiratory failure with hypoxia (3) Adult failure to thrive: Status: Acute Category: Medical Code(s): R62.7 - Adult failure to thrive Plan: Tolerating p.o. intake. PT and OT consulted to evaluate. 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 Continue sliding scale insulin fingersticks ACHS. -Diabetic diet -Continue long-acting insulin with Lantus 20 units nightly (7) Bipolar 1 disorder: Status: Acute Category: Medical Code(s): F31.9 - Bipolar disorder, unspecified (8) Hypertension: Status: Chronic Qualifiers: Hypertension type: primary hypertension Qualified Code(s): I10 - Essential (primary) hypertension Category: Medical Code(s): I10 - Essential (primary) hypertension (9) Hypothyroidism: Status: Chronic Qualifiers: Hypothyroidism type: acquired Qualified Code(s): E03.9 - Hypothyroidism, unspecified Category: Medical Code(s): E03.9 - Hypothyroidism, unspecified Plan Discussed case with pulmonology, recommends continuing Advair 500 inhaler along with DuoNebs 4 times a day. Continue current antibiotic regimen with ceftriaxone and azithromycin for community-acquired pneumonia. Continue supplemental O2 for goal sats greater than 90%. Weaned to 1 L on rounds. - Holding on steroids due to active infection -white count normal at 7.4, hemoglobin 10.7. Repeat CBC, CMP, magnesium ordered for the morning. Continue levothyroxine 150 mcg daily for hypothyroid Continue Lamictal 200 mg daily for mood Continue Lasix 40 mg daily p.o. for hypertension and volume overload Resume Wixela daily Continue Wellbutrin 150 mg daily along with Prozac 40 mg daily for mood disorder Continue losartan 100 mg daily for hypertension Full code Diabetic
[2024-12-04] MEDS: MAGNESIUM SULFATE IN WATER 2 GM/50 ML PIGGYBACK IV ×2 (14:45→15:28)
[2024-12-04] MEDS: MONTELUKAST SODIUM 10MG TAB 10 MG PO (17:20)
[2024-12-04] MEDS: MULTIVITAMIN TABLET 1 EACH PO (17:20)
[2024-12-04 17:28] LABS: POC Glucose,Bedside 95 (70-110)
--- NOTE | 2024-12-04 17:55 | PC.NURSE ---
Pt is A&O x4. She states she feels better today and is less weak. She has been up to the chair this shift with assistance from PT. Pt remains on 2L O2 NC. Was placed on RA this AM with resting O2 sats of 87% noted. O2 was placed back on pt where she remains. Electrolyte replacement order placed this shift. Magnesium 2 grams IV administered. Pt has voided using purewick this shift. Urine output is 900 ml. No BM this shift. Call light is within reach. Safety measures in place.
[2024-12-04] MEDS: INSULIN GLARGINE 100 UNITS/ML 3ML FLEXPEN 20 UNIT SUBCUT (20:11)
[2024-12-04] MEDS: PRAVASTATIN 40MG TAB 40 MG PO (20:12)
[2024-12-04 21:38] LABS: POC Glucose,Bedside 192 (70-110)
[2024-12-05 04:00] VITALS: BP 146/67; PULSE 80; RESP 16; TEMP 36.7; O2SAT 97; BMI 24.5
--- NOTE | 2024-12-05 05:13 | PC.NURSE ---
Pt A&OX4 and has tolerated 2L nasal cannula. VSS. She has received IV ABX. Purewick has remained in place. No complaints at this time, call light with reach.
[2024-12-05 05:52] VITALS: PULSE 71; PULSE 74; O2SAT 91
[2024-12-05] MEDS: LEVOTHYROXINE 150MCG (0.15MG)TAB 150 MCG PO (06:09)
[2024-12-05 06:16] LABS: POC Glucose,Bedside 130 (70-110)
[2024-12-05 06:32] LABS: Hematocrit 31.8 % (37.0-47.0); Hemoglobin 10.8 g/dL (12.2-16.2); Immature Granulocytes % 1.0 %; Mean Corpuscular HGB Conc 34.0 g/dL (31.8-35.4); Mean Corpuscular Hemoglobin 30.1 pg (27.0-31.2); Mean Corpuscular Volume 88.6 fl (81-99); Nucleated Red Blood Cells % 0 %; Platelet Count 153 K/mm3 (142-424); Red Blood Count 3.59 M/mm3 (4.20-5.40); Red Cell Distribution Width-SD 41.1 fL; White Blood Count 6.8 K/mm3 (4.8-10.8)
[2024-12-05 06:43] LABS: Alanine Aminotransferase 9 U/L (12-78); Albumin Level 3.5 g/dl (3.5-5.0); Albumin/Globulin Ratio 1.3 (1.1-1.8); Alkaline Phosphatase 65 U/L (38-126); Anion Gap 10.6 mEq/L (5-15); Aspartate Amino Transferase 19 U/L (14-36); Bilirubin,Total 0.6 mg/dl (0.2-1.3); Blood Urea Nitrogen 7 mg/dl (7-17); Calcium 9.0 mg/dl (8.4-10.2); Carbon Dioxide 30 mmol/L (22.0-30.0); Chloride 96 mmol/L (98-107); Creatinine Clearance Estimated 53 mL/min (50-200); Creatinine,Serum 0.70 mg/dl (0.52-1.04); Estimated Glomerular Filt Rate 81 ml/min (>60); GFR (African American) 98 ML/MIN (>60); Globulin 2.8 g/dL (1.3-3.2); Glucose 122 mg/dl (74-100); Potassium 3.6 mmoL/L (3.5-5.1); Sodium 133 mmol/L (136-145); Total Protein,Serum 6.3 g/dl (6.3-8.2)
[2024-12-05 06:55] LABS: Magnesium 2.0 mg/dl (1.6-2.3)
[2024-12-05 08:00] VITALS: BP 126/62; PULSE 80; RESP 20; TEMP 36.8; O2SAT 96
[2024-12-05] MEDS: METOPROLOL TARTRATE 25MG TABLET 25 MG PO (08:22)
[2024-12-05] MEDS: SPIRONOLACTONE 25MG TABLET 25 MG PO (08:22)
[2024-12-05] MEDS: ASPIRIN EC 81MG TABLET 81 MG PO (08:22)
[2024-12-05] MEDS: IRBESARTAN 150MG TAB 150 MG PO (08:22)
[2024-12-05] MEDS: FLUOXETINE 20MG CAPSULE 40 MG PO (08:22)
[2024-12-05] MEDS: AZITHROMYCIN 250MG TABLET 250 MG PO (08:22)
--- NOTE | 2024-12-05 11:00 | EXP.DC.SUM ---
General Admission date:: 12/02/24 Discharge date: 12/05/24 HPI HPI HPI: Ms. Hidalgo is a 74-year-old female presents ER with complaints of dizziness. Patient has a past medical history of asthma, vertigo, interstitial lung disease, bipolar disorder, hypertension, diabetes, and hypothyroidism. Patient states she has been dizzy off-and-on for months. She states she was diagnosed with vertigo and prescribed meclizine that she takes for her symptoms. She states she was more dizzy today and felt like she could not stand. She also reports dry cough, headache, lightheadedness, and shortness of breath worse from baseline. Patient reports some vomiting few days ago that has resolved. She also reports multiple falls and having to call for lift this 6 to 4-5 times this week. Reports she has not been eating and drinking very well. She denies home O2 use. Patient denies fever/chills, congestion, runny nose, chest pain, diarrhea, constipation, headache, or syncope. Hospital Course Hospital Course Hospital Course: 74-year-old female who presented with shortness of breath, found to have multifocal pneumonia. Initiated on empiric antibiotics. Pulmonology assisted with care. Showing significant improvement. Stable to discharge to rehab for further management due to weakness and need for skilled therapy. Problems addressed as follows: Multifocal pneumonia Acute on chronic hypoxemic respiratory failure Initiated on broad-spectrum antibiotics, did well with ceftriaxone and azithromycin for community acquired pneumonia. Pulmonology consulted to assist with care. Recommend continuing Advair 500 inhaler along with DuoNebs 4 times a day. Continue supplemental oxygen as needed for goal sats greater 90%. Tolerating 1 to 2 L at this time. Holding steroids due to active infection. White count normalized and has been normal for over 48 hours. 6.8 on day of discharge. Kidney function and electrolytes normal. Tolerating p.o. intake. Due to previous UTIs, multiple cultures in the past with various pathogens, will transition to Levaquin to complete 3 more days of therapy for her pneumonia. Urinalysis was obtained during admission, had multiple organisms mostly suspicious for contaminant. Continue levothyroxine 150 mcg daily for hypothyroid Continue Lamictal 200 mg daily for mood Continue Lasix 40 mg daily p.o. for hypertension and volume overload Resume Wixela (advair) daily Continue Wellbutrin 150 mg daily along with Prozac 40 mg daily for mood disorder Continue losartan 100 mg daily for hypertension Total time spent on discharge 32 minutes in counseling, documentation, chart review, and direct care with patient. Exam Data for Last 24 hours Vital signs and Labs for Last 24 Hours: Temp Pulse Resp BP Pulse Ox O2 Del Method O2 Flow Rate 98.2 F 80 20 126/62 96 Nasal Cannula 2 12/05/24 08:00 12/05/24 08:00 12/05/24 08:00 12/05/24 08:00 12/05/24 08:00 12/05/24 09:00 12/05/24 09:00 FiO2 28 12/03/24 20:11 Laboratory Results - last 24 hr 12/04/24 12:10: POC Glucose 254 H 12/04/24 17:17: POC Glucose 95 12/04/24 20:06: POC Glucose 192 H 12/05/24 05:44: WBC 6.8, RBC 3.59 L, Hgb 10.8 L, Hct 31.8 L, MCV 88.6, MCH 30.1, MCHC 34.0, RDW 12.7, Plt Count 153, MPV 8.6, Neut % (Auto) 58.1, Lymph % (Auto) 22.5, Parker % (Auto) 13.8 H, Eos % (Auto) 4.0, Baso % (Auto) 0.6, Neut # (Auto) 4.0, Lymph # (Auto) 1.5, Parker # (Auto) 0.9, Eos # (Auto) 0.3, Baso # (Auto) 0.0, Sodium 133 L, Potassium 3.6, Chloride 96 L, Carbon Dioxide 30, Anion Gap 10.6, BUN 7, Creatinine 0.70, Estimated Creat Clear 53, Estimated GFR 81, Est GFR ( Amer) 98, Glucose 122 H, Calcium 9.0, Magnesium 2.0 D, Total Bilirubin 0.6, AST 19, ALT 9 L, Alkaline Phosphatase 65, Total Protein 6.3, Albumin 3.5, Globulin 2.8, Albumin/Globulin Ratio 1.3 12/05/24 06:08: POC Glucose 130 H I & O for Last 24 hours: Intake & Output 06/28/25 06/29/25 06/30/25 07/01/25 23:59 23:59 23:59 23:59 Intake Total 2062 / 2112 1170 / 1220 290 / 290 Output Total 200 / 200 1100 / 1100 900 / 900 Balance 1863 / 1913 70 / 120 -610 / -610 Weight 70.67 kg 73.164 kg 73.527 kg 70.76 kg Microbiology Reports for the Last 24 Hours: Microbiology 12/02/24 23:07 Blood Blood Culture - Preliminary NO GROWTH AFTER 24 HOURS 12/02/24 23:07 Blood Blood Culture - Preliminary NO GROWTH AFTER 24 HOURS Constitutional Constitutional: no acute distress, average body habitus, chronically ill appearing and cooperative *Routine HEENT Exam Head: Present normocephalic Eye: Present EOMI and PERRL ENT: Present mucous membranes moist *Routine Neck Exam Neck: Present supple; Absent lymphadenopathy *Routine Respiratory Exam Respiratory: Present prolonged expiratory phase and wheezes; Absent respiratory distress, rhonchi or crackles *Routine Cardiovascular Exam Cardiovascular: Present RRR *Routine Abdominal Exam Abdominal: Present soft and normoactive bowel sounds; Absent tenderness *Routine Rectal Exam Patient deferred: visual exam *Routine Exam Patient deferred: external exam *Routine Extremities Exam Extremities: Absent cyanosis, clubbing or edema *Routine Skin Exam Skin: Present intact and warm; Absent rash *Routine Neurological Exam Neurological: Present alert, oriented X3 and moving all extremities; Absent altered mental status Routine Psychiatric Exam Psychiatric: Present normal affect Results Data Completed and Pending Labs on day of discharge: Labs from last 24 hours 12/05/24 12/05/24 12/04/24 06:08 05:44 20:06 WBC 6.8 RBC 3.59 L Hgb 10.8 L Hct 31.8 L MCV 88.6 MCH 30.1 MCHC 34.0 RDW 12.7 Plt Count 153 MPV 8.6 Neut % (Auto) 58.1 Lymph % (Auto) 22.5 Parker % (Auto) 13.8 H Eos % (Auto) 4.0 Baso % (Auto) 0.6 Neut # (Auto) 4.0 Lymph # (Auto) 1.5 Parker # (Auto) 0.9 Eos # (Auto) 0.3 Baso # (Auto) 0.0 Sodium 133 L Potassium 3.6 Chloride 96 L Carbon Dioxide 30 Anion Gap 10.6 BUN 7 Creatinine 0.70 Estimated Creat Clear 53 Estimated GFR 81 Est GFR ( Amer) 98 Glucose 122 H POC Glucose 130 H 192 H Calcium 9.0 Magnesium 2.0 D Total Bilirubin 0.6 AST 19 ALT 9 L Alkaline Phosphatase 65 Total Protein 6.3 Albumin 3.5 Globulin 2.8 Albumin/Globulin Ratio 1.3 12/04/24 12/04/24 17:17 12:10 WBC RBC Hgb Hct MCV MCH MCHC RDW Plt Count MPV Neut % (Auto) Lymph % (Auto) Parker % (Auto) Eos % (Auto) Baso % (Auto) Neut # (Auto) Lymph # (Auto) Parker # (Auto) Eos # (Auto) Baso # (Auto) Sodium Potassium Chloride Carbon Dioxide Anion Gap BUN Creatinine Estimated Creat Clear Estimated GFR Est GFR ( Amer) Glucose POC Glucose 95 254 H Calcium Magnesium Total Bilirubin AST ALT Alkaline Phosphatase Total Protein Albumin Globulin Albumin/Globulin Ratio Preliminary micro results at discharge 12/02/24 23:07 Blood Culture - Preliminary Blood NO GROWTH AFTER 24 HOURS 12/02/24 23:07 Blood Culture - Preliminary Blood NO GROWTH AFTER 24 HOURS DS: Diagnosis Discharge Diagnosis (1) Multifocal pneumonia: Status: Acute Code(s): J18.9 - Pneumonia, unspecified organism (2) Acute hypoxemic respiratory failure: Status: Acute Code(s): J96.01 - Acute respiratory failure with hypoxia (3) Adult failure to thrive: Status: Acute Code(s): R62.7 - Adult failure to thrive (4) Shortness of breath: Status: Acute Code(s): R06.02 - Shortness of breath (5) Weakness generalized: Status: Acute Code(s): R53.1 - Weakness (6) Diabetes: Status: Chronic Code(s): E11.9 - Type 2 diabetes mellitus without complications Qualifiers: Diabetes mellitus complication status: with hyperglycemia Diabetes mellitus senior living insulin use: 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 Diabetes mellitus type: type 2 Qualified Code(s): E11.65 - Type 2 diabetes mellitus with hyperglycemia (7) Bipolar 1 disorder: Status: Acute Code(s): F31.9 - Bipolar disorder, unspecified (8) Hypertension: Status: Chronic Code(s): I10 - Essential (primary) hypertension Qualifiers: Hypertension type: primary hypertension Qualified Code(s): I10 - Essential (primary) hypertension (9) Hypothyroidism: Status: Chronic Code(s): E03.9 - Hypothyroidism, unspecified Qualifiers: Hypothyroidism type: acquired Qualified Code(s): E03.9 - Hypothyroidism, unspecified Meds Home Medications and Allergies Home Medications ?Medication ?Instructions ?Recorded ?Confirmed ?Type montelukast 10 mg tablet 10 mg PO PM 11/16/18 12/03/24 History simvastatin 20 mg tablet 20 mg PO HS 11/16/18 12/03/24 History losartan 100 mg tablet 100 mg PO DAILY 02/17/23 12/03/24 History lamotrigine 200 mg tablet 200 mg PO AM 04/25/24 12/03/24 History levothyroxine 150 mcg tablet 150 mcg PO DAILYDM 04/25/24 12/03/24 History furosemide 40 mg tablet (Lasix) 40 mg PO DAILY PRN Leg edema #30 05/09/24 12/03/24 Rx tabs spironolactone 25 mg tablet 25 mg PO DAILY 30 days #30 tabs 05/09/24 12/03/24 Rx aspirin 81 mg capsule 81 mg PO DAILY 05/21/24 12/03/24 History biotin 10,000 mcg chewable tablet 10,000 mcg PO DAILY Supplement 05/21/24 12/03/24 History (Hair, Skin and Nails (biotin)) multivitamin with minerals-folic 1 tab PO DAILY Supplement 05/21/24 12/03/24 History acid 12 mcg chewable tablet (Centrum Adults) fluoxetine 40 mg capsule 40 mg PO DAILY 08/07/24 12/03/24 History hydroxyzine pamoate 25 mg capsule 50 mg PO Q6HP PRN Anxiety 08/07/24 12/03/24 History insulin degludec 200 unit/mL (3 30 unit SQ HS 08/07/24 12/03/24 History mL) subcutaneous pen (Tresiba FlexTouch U-200 insulin) meclizine 25 mg tablet 25 mg PO TIDP PRN Dizziness Or 08/07/24 12/03/24 History Vertigo albuterol sulfate 90 mcg/actuation 2 inh inhalation Q6H PRN shortness 11/15/24 12/03/24 Rx aerosol inhaler of breath or wheezing 90 days #8.5 grams bupropion HCl 150 mg tablet,12 hr 150 mg PO DAILY 12/03/24 12/03/24 History sustained-release fluticasone 250 mcg-salmeterol 50 1 inh inhalation BIDRT 12/03/24 12/03/24 History mcg/dose blistr powdr for inhalation (Lizxkiley Inhub) metoprolol tartrate 25 mg tablet 25 mg PO DAILY 12/03/24 12/03/24 History ondansetron 4 mg disintegrating 4 mg PO Q8HP PRN nausea and 12/03/24 12/03/24 History tablet vomiting levofloxacin 750 mg tablet 750 mg PO DAILY #3 tabs 12/05/24 Rx New Prescriptions to Start Prescriptions: Alfonso Castro Allergies Allergy/AdvReac Type Severity Reaction Status Date / Time No Known Allergies Allergy Verified 08/07/24 14:21 Discharge Plan Disposition Patient Disposition: [facility] Condition: Fair Discharge Order Discharge Orders: Discharge Order (Routine); Ordered 12/05/24 Ordered By: Alfonso Mercado Follow up Plan Follow up with: Jonas Topete MD [Physician, Pulmonology] - Enter time for follow up Prescriptions/Medication Reconciliation: New levofloxacin 750 mg tablet 750 mg PO DAILY Qty: 3 0RF Continued losartan 100 mg tablet 100 mg PO DAILY fluoxetine 40 mg capsule 40 mg PO DAILY Patient Comments: TAKE 1 CAPSULE BY MOUTH EVERY DAY IN THE MORNING insulin degludec [Tresiba FlexTouch U-200] 200 unit/mL (3 mL) insulin pen 30 unit SQ HS Patient Comments: TAKE 30 UNITS SUBCUTANEOUSLY EVERY NIGHT AT BEDTIME hydroxyzine pamoate 25 mg capsule 50 mg PO Q6HP PRN (Reason: Anxiety) Patient Comments: TAKE 1-2 CAPSULES (25-50 MG) BY MOUTH EVERY 6 HOURS NEEDED FOR ANXIETY OR INSOMNIA meclizine 25 mg tablet 25 mg PO TIDP PRN (Reason: Dizziness Or Vertigo) Patient Comments: TAKE ONE TABLET BY MOUTH THREE TIMES DAILY NEEDED for vertigo albuterol sulfate 90 mcg/actuation HFA aerosol inhaler 2 inh inhalation Q6H PRN (Reason: shortness of breath or wheezing) 90 Days Qty: 8.5 2RF simvastatin 20 MG tablet 20 mg PO HS montelukast 10 MG tablet 10 mg PO PM levothyroxine 150 mcg tablet 150 mcg PO DAILYDM Patient Comments: TAKE 1 TABLET BY MOUTH EVERY DAY IN THE MORNING lamotrigine 200 mg tablet 200 mg PO AM Patient Comments: TAKE 1 TABLET EVERY DAY BY ORAL ROUTE IN THE MORNING. bupropion HCl 150 mg tablet sustained-release 12 hr 150 mg PO DAILY Patient Comments: TAKE ONE TABLET BY MOUTH EVERY MORNING metoprolol tartrate 25 mg tablet 25 mg PO DAILY Patient Comments: TAKE 1 TABLET BY MOUTH EVERY DAY fluticasone propion-salmeterol [Wixela Inhub] 250-50 mcg/dose blister with device 1 inh inhalation BIDRT ondansetron 4 mg tablet,disintegrating 4 mg PO Q8HP PRN (Reason: nausea and vomiting) spironolactone 25 mg Tablet 25 mg PO DAILY 30 Days Qty: 30 0RF furosemide [Lasix] 40 mg tablet 40 mg PO DAILY PRN (Reason: Leg edema) Qty: 30 0RF aspirin 81 mg Capsule 81 mg PO DAILY Hair, Skin and Nails (biotin) 10,000 mcg Tablet,Chewable 10,000 mcg PO DAILY Centrum Adults 12 mcg Tablet,Chewable 1 tab PO DAILY Problem Reconciliation Problems Reviewed?: Yes Patient Discharge Instructions ACTIVITY: Continue current activity DIET: continue same diet Patient Instructions: DI for Failure to Thrive, Stop Light Pneumonia Print Language: Malawian Providers Primary Care Provider: Radha Tapia Admit Provider: Alfonso Mercado Attending Provider: Alfonso Mercado
[2024-12-05 12:16] LABS: POC Glucose,Bedside 153 (70-110)
--- NOTE | 2024-12-05 12:21 | PC.NURSE ---
pt refused ssi
[2024-12-05] MEDS: ONDANSETRON 4MG/2ML VIAL 4 MG IV (12:45)
== END 2024-12-05 12:58 | DRG 193 ==
LOC: ER 21:18 → 2ND 22:44
PROVIDERS: Nurse Practitioner Family; Admitting Provider Internal Medicine Adolescent Medicine; Emergency Provider Emergency Medicine; PCP Nurse Practitioner Family; Visit Provider Internal Medicine Adolescent Medicine
DX: J18.9 Pneumonia, unspecified organism (principal); J96.21 Acute and chronic respiratory failure with hypoxia; R62.7 Adult failure to thrive; R53.1 Weakness; E11.65 Type 2 diabetes mellitus with hyperglycemia; F31.9 Bipolar disorder, unspecified; I10 Essential (primary) hypertension; E03.9 Hypothyroidism, unspecified; J45.909 Unspecified asthma, uncomplicated; R29.6 Repeated falls; E87.70 Fluid overload, unspecified; Z79.82 Long term (current) use of aspirin; Z87.891 Personal history of nicotine dependence; Z79.4 Long term (current) use of insulin; Z79.890 Hormone replacement therapy; Z79.899 Other long term (current) drug therapy
CPT/HCPCS: 36415; 71275; 80048; 80053; 82803; 82962; 83036; 83735; 83880; 84436; 84443; 84484; 85025; 86803; 87040; 87633; 93005; 94640; 97162; 97165; 97530; J0456; J0696; J1650; J2405; J3475; J7030; J7050; Q9967

== ENCOUNTER 2024-12-10 20:47 | Emergency (ER) | payer MEDICARE, OTHER, SELFPAY ==
--- OUTSIDE RECORDS SUMMARY | 2024-10-25 20:00 | XMS_ITS | Clinical Summary ---
Author Organization Unknown Care Team Providers Care Lab Asst Name Role Phone SUSAN BARREL LATHE OPERATOR OUTSIDE, FRANK Unavailable Unavailable ALISON PT, PEREZ Unavailable Unavailable TAM RN, AKI Unavailable Unavailable LAURA WILLIAMSONN, DOLLY Unavailable Unavaileric LERNER SBA BUSINESS DEVELOPMENT OFFICER, SHANE Unavailable Unavailable PAOLA OT, PRICILA Unavailable Unavailable ELSA RN, NAY Unavailable Unavailable TIM VALADEZ/CHELE, BLAKE Unavailable Un available Payers Payer Name Policy Type Policy Number Effective Date Expira tion Date MEDICARE.[place] [id number] Problems Condition Name Condition Details Condition Category [...] 00 REPEATED FALLS Active 2023-06 00:00: 00 FDC (CURRENT) USE OF INSULIN Active 06-07 00:00: [...] 2023-06 00:00: 00 05-08 23:59 :00 No [id number] INFECTION 1 tablet DAILY 1 tablet DAILY (route: oral) Med Classific ation: Anti-Infe ctive Agents trazodone 50 mg tablet 2023-06 00:00: 00 05-12 23:59 :00 No [id number] SLEEP 1 tablet AT BEDTIME NEEDED 1 tablet AT BEDTIME NEEDED (route: oral) Med Classific ation: Central Nervous System Agents metoprolol tartrate 25 mg tablet 2023-06 00:00: 00 Yes [id number] CARDIAC 1 tablet 2 TIMES DAILY 1 tablet 2 TIMES DAILY (route: oral) Med Classific ation: Cardiovas cular Therapy Agents montelukast 10 mg tablet 2023-06 00:00: 00 Yes [id number] ALLERGIES 1 tablet DAILY 1 tablet DAILY (route: oral) Med Classific ation: Respirato ry Therapy Agents simvastatin 20 mg tablet 2023-06 00:00: 00 Yes [id number] HDL 1 tablet DAILY 1 tablet DAILY (route: oral) Med Classific ation: Cardiovas cular Therapy Agents fluoxetine 40 mg capsule 2023-06 00:00: 00 Yes [id number] DEPRESSION 1 capsule EVERY DAY 1 capsule EVERY DAY (route: oral) Med Classific ation: Central Nervous System Agents lamotrigine 200 mg tablet 2023-06 00:00: 00 Yes [id number] MUD TRUCKER 1 tablet DAILY 1 tablet DAILY (route: oral) Med Classific ation: Central Nervous System Agents Basaglar KwikPen U-100 Insulin 100 unit/mL (3 mL) subcutaneou s 2023-06 0- 00:00: 00 Yes [id number] DM 30 unit SUBCUTANEO USLY EVERY NIGHT AT BEDTIME 30 unit SUBCUTANEO USLY EVERY NIGHT AT BEDTIME (route: subcutaneo us) Med Classific ation: Endocrine levothyroxi ne 150 mcg tablet 2023-06 00:00: 00 Yes [id number] HYPOTHYROID ISM 1 tablet DAILY 1 tablet DAILY (route: oral) Med Classific ation: Endocrine losartan 100 mg tablet 2023-06 00:00: 00 Yes [id number] HTN 1 tablet DAILY 1 tablet DAILY (route: oral) Med Classific ation: Cardiovas cular Therapy Agents meclizine 25 mg tablet 2023-06 00:00: 00 Yes [id number] VERTIGO 1 tablet 3 TIMES DAILY 1 tablet 3 TIMES DAILY (route: oral) Med Classific ation: Gastroint estinal Therapy Agents ondansetron 4 mg disintegrat ing tablet 2023-06 00:00: 00 Yes [id number] NAUSEA 1 tablet EVERY 6 HOURS 1 tablet EVERY 6 HOURS (route: oral) Med Classific ation: Gastroint estinal Therapy Agents Advair Diskus 500 mcg-50 mcg/dose powder for inhalation 2023-06 00:00: 00 Yes [id number] ASTHMA, BREATHING 1 inhalat ion 2 TIMES DAILY 1 inhalation 2 TIMES DAILY (route: inhalation ) Med Classific ation: Respirato ry Therapy Agents furosemide 40 mg tablet 2023-06 00:00: 00 Yes [id number] EDEMA, WT GAIN 1 tablet NEEDED 1 tablet NEEDED (route: oral) Med Classific ation: Cardiovas cular Therapy Agents hydroxyzine HCl 25 mg tablet 2022-06 00:00: 00 Yes [id number] ANXIETY 1 tablet DAILY 1 tablet DAILY (route: oral) Med Classific ation: Central Nervous System Agents Jardiance 10 mg tablet 2023-06 2 00:00: 00 Yes [id number] BS 1 tablet DAILY 1 tablet DAILY (route: oral) Med Classific ation: Endocrine prednisone 20 mg tablet 2023-06 00:00: 00 05-18 23:59 :00 No [id number] BREATHING 2 tablet DAILY 2 tablet DAILY (route: oral) Med Classific ation: Endocrine spironolact one 25 mg tablet 2023-06 2 00:00: 00 Yes [id number] HEART 1 tablet DAILY 1 tablet DAILY (route: oral) Med Classific ation: Cardiovas cular Therapy Agents azithromyci n 250 mg tablet 2023-06 00:00: 00 05-21 23:59 :00 No [id number] BRONCHITIS 2 tablet DIRECTED 2 tablet DIRECTED (route: oral) Med Classific ation: Anti-Infe ctive Agents albuterol sulfate 0.63 mg/3 mL solution for nebulizatio n 2022-06 00:00: 00 Yes [id number] SOA Per instruc tions NEEDED Per instructio ns NEEDED (route: inhalation ) Med Classific ation: Respirato ry Therapy Agents bupropion HCl 75 mg tablet 09-26 00:00: 00 Yes [id number] DEPRESSION 1 tablet DAILY 1 tablet DAILY [...] DAVIS NP RN TO OBSERVE AND ASSESS, WELLHEAD PUMPER/WELDING PANTOGRAPH MACHINE OPERATOR TO OBSERVE FOR RISK FOR FALLS AND INSTRUCT IN FALL PREVENTION, HOME SAFETY, MEDICATION MANAGEMENT, INFECTION PREVENTION, AND NUTRITION MANAGEMENT. RN/WELLHEAD PUMPER/WELDING PANTOGRAPH MACHINE OPERATOR NURSE MAY PERFORM O2 SATURATION LEVEL ON ADMISSION AND PRN FOR DESAT FOR RN TO ASSESS/WELLHEAD PUMPER TO OBSERVE PATIENT, WITH NOTIFICATION TO THE PHYSICIAN IF SATURATION IS 90% IN THE ABSENCE OF MORE SPECIFIC PARAMETERS FROM THE PHYSICIAN. AGENCY MAY PERFORM A RESUMPTION OF CARE VISIT FOLLOWING ANY HOSPITAL ADMISSION. RN/WELLHEAD PUMPER/WELDING PANTOGRAPH MACHINE OPERATOR TO MONITOR CO-MORBID CONDITIONS LISTED ON THE PLAN OF CARE AND ANY NEW CONDITIONS THAT PRESENT THEMSELVES DURING THIS EPISODE TO IDENTIFY CHANGES AND INTERVENE TO MINIMIZE COMPLICATIONS. [code = RN TO OBSERVE, ASSESS, EVALUATE, AND DEVELOP AN INDIVIDUALIZED PLAN OF CARE. AGENCY MAY ACCEPT ORDERS FROM CONSULTING PHYSICIANS FRANK DAVIS BARREL LATHE OPERATOR OUTSIDE RN TO OBSERVE AND ASSESS, WELLHEAD PUMPER/WELDING PANTOGRAPH MACHINE OPERATOR TO OBSERVE FOR RISK FOR FALLS AND INSTRUCT IN FALL PREVENTION, HOME SAFETY, MEDICATION MANAGEMENT, INFECTION PREVENTION, AND NUTRITION MANAGEMENT. RN/WELLHEAD PUMPER/WELDING PANTOGRAPH MACHINE OPERATOR NURSE MAY PERFORM O2 SATURATION LEVEL ON ADMISSION AND PRN FOR DESAT FOR RN TO ASSESS/WELLHEAD PUMPER TO OBSERVE PATIENT, WITH NOTIFICATION TO THE PHYSICIAN IF SATURATION IS 90% IN THE ABSENCE OF MORE SPECIFIC PARAMETERS FROM THE PHYSICIAN. AGENCY MAY PERFORM A RESUMPTION OF CARE VISIT FOLLOWING ANY HOSPITAL ADMISSION. RN/WELLHEAD PUMPER/WELDING PANTOGRAPH MACHINE OPERATOR TO MONITOR CO-MORBID CONDITIONS LISTED ON THE PLAN OF CARE AND ANY NEW CONDITIONS THAT PRESENT THEMSELVES DURING THIS EPISODE TO IDENTIFY CHANGES AND INTERVENE TO MINIMIZE COMPLICATIONS.] Future Scheduled Test RISK FOR H OSPITALIZATION; RN TO ASSESS/TEACH, WELDING PANTOGRAPH MACHINE OPERATOR/WELLHEAD PUMPER TO OBSERVE/TEACH PATIENT/CAREGIVER ON RISK FOR HOSPITALIZATION/EMERGENCY ROOM VISITS, TEACH SIGNS AND SYMPTOMS THAT PUT PATIENT AT RISK, WHEN TO NOTIFY NURSE/PHYSICIAN OF COMPLICATIONS/DECLINE, AND WHEN TO CALL 911. [code = RISK FOR HOSPITALIZATION; RN TO ASSESS/TEACH, WELDING PANTOGRAPH MACHINE OPERATOR/WELLHEAD PUMPER TO OBSERVE/TEACH PATIENT/CAREGIVER ON RISK FOR HOSPITALIZATION/EMERGENCY ROOM VISITS, TEACH SIGNS AND SYMPTOMS THAT PUT PATIENT AT RISK, WHEN TO NOTIFY NURSE/PHYSICIAN OF COMPLICATIONS/DECLINE, AND WHEN TO CALL 911.] Future Scheduled Test CARDIOVASC ULAR SYSTEM; RN TO ASSESS/TEACH, WELLHEAD PUMPER/WELDING PANTOGRAPH MACHINE OPERATOR TO OBSERVE/TEACH RELATED TO ALTERED CARDIOVASCULAR STATUS TO MINIMIZE COMPLICATIONS AND REDUCE HOSPITALIZATION. [code = CARDIOVASCULAR SYSTEM; RN TO ASSESS/TEACH, WELLHEAD PUMPER/WELDING PANTOGRAPH MACHINE OPERATOR TO OBSERVE/TEACH RELATED TO ALTERED CARDIOVASCULAR STATUS TO MINIMIZE COMPLICATIONS AND REDUCE HOSPITALIZATION.] Future Scheduled Test HEART FAIL URE; RN TO ASSESS/TEACH, WELLHEAD PUMPER/WELDING PANTOGRAPH MACHINE OPERATOR TO OBSERVE/TEACH CARDIOPULMONARY SYSTEM TO IDENTIFY SIGNS [...] [code = HEART FAILURE; RN TO ASSESS/TEACH, WELLHEAD PUMPER/WELDING PANTOGRAPH MACHINE OPERATOR TO OBSERVE/TEACH CARDIOPULMONARY SYSTEM TO IDENTIFY SIGNS [...] SYSTEM MANAGEMENT; RN TO ASSESS AND TEACH, WELLHEAD PUMPER/WELDING PANTOGRAPH MACHINE OPERATOR TO OBSERVE AND TEACH RELATED TO ALTERED RESPIRATORY STATUS TO MINIMIZE COMPLICATIONS AND REDUCE HOSPITALIZATION. [code = RESPIRATORY SYSTEM MANAGEMENT; RN TO ASSESS AND TEACH, WELLHEAD PUMPER/WELDING PANTOGRAPH MACHINE OPERATOR TO OBSERVE AND TEACH RELATED TO ALTERED RESPIRATORY STATUS TO MINIMIZE COMPLICATIONS AND REDUCE HOSPITALIZATION.] Future Scheduled Test ASTHMA MAN AGEMENT; RN TO ASSESS AND TEACH, WELLHEAD PUMPER/WELDING PANTOGRAPH MACHINE OPERATOR TO OBSERVE AND TEACH ASTHMA MANAGEMENT AND PROVIDE EARLY INTERVENTIONS TO MINIMIZE RISK OF HOSPITALIZATION [code = ASTHMA MANAGEMENT; RN TO ASSESS AND TEACH, WELLHEAD PUMPER/WELDING PANTOGRAPH MACHINE OPERATOR TO OBSERVE AND TEACH ASTHMA MANAGEMENT AND PROVIDE EARLY INTERVENTIONS TO MINIMIZE RISK OF HOSPITALIZATION] Future Scheduled Test DIABETES M ANAGEMENT; RN TO ASSESS AND TEACH, WELDING PANTOGRAPH MACHINE OPERATOR/WELLHEAD PUMPER TO OBSERVE AND TEACH INSTRUCTIONS OF DIABETIC CARE TO INCLUDE: DIET DIABETIC SKIN CARE, SIGNS AND SYMPTOMS OF HYPO/HYPERGLYCEMIA, PROPER ADMINISTRATION OF DIABETIC MEDICATION. RN/WELDING PANTOGRAPH MACHINE OPERATOR/WELLHEAD PUMPER TO INSTRUCT ON DIABETIC FOOT CARE AND MONITOR FOR SKIN LESIONS ON LOWER EXTREMITIES. BLOOD GLUCOSE TESTING TID FREQ. RN TO ASSESS AND TEACH, WELDING PANTOGRAPH MACHINE OPERATOR/WELLHEAD PUMPER TO OBSERVE AND TEACH PATIENT/CAREGIVER ABILITY TO PERFORM AND RECORD BLOOD GLUCOSE TESTING ORDERED AND TO REPORT ABNORMAL FINDINGS TO PHYSICIAN. RN/WELDING PANTOGRAPH MACHINE OPERATOR/WELLHEAD PUMPER MAY PERFORM BLOOD GLUCOSE TEST NEEDED. RN/WELDING PANTOGRAPH MACHINE OPERATOR/WELLHEAD PUMPER TO REPORT TO PHYSICIAN BLOOD GLUCOSE READINGS GREATER THAN 60 OR LESS THAN 300 RN/WELDING PANTOGRAPH MACHINE OPERATOR/WELLHEAD PUMPER TO INSTRUCT PATIENT ON IMPORTANCE OF HGBA1C MONITORING, KIDNEY FUNCTION TEST, EYE AND FOOT EXAMS. [code = DIABETES MANAGEMENT; RN TO ASSESS AND TEACH, WELDING PANTOGRAPH MACHINE OPERATOR/WELLHEAD PUMPER TO OBSERVE AND TEACH INSTRUCTIONS OF DIABETIC CARE TO INCLUDE: DIET DIABETIC SKIN CARE, SIGNS AND SYMPTOMS OF HYPO/HYPERGLYCEMIA, PROPER ADMINISTRATION OF DIABETIC MEDICATION. RN/WELDING PANTOGRAPH MACHINE OPERATOR/WELLHEAD PUMPER TO INSTRUCT ON DIABETIC FOOT CARE AND MONITOR FOR SKIN LESIONS ON LOWER EXTREMITIES. BLOOD GLUCOSE TESTING TID FREQ. RN TO ASSESS AND TEACH, WELDING PANTOGRAPH MACHINE OPERATOR/WELLHEAD PUMPER TO OBSERVE AND TEACH PATIENT/CAREGIVER ABILITY TO PERFORM AND RECORD BLOOD GLUCOSE TESTING ORDERED AND TO REPORT ABNORMAL FINDINGS TO PHYSICIAN. RN/WELDING PANTOGRAPH MACHINE OPERATOR/WELLHEAD PUMPER MAY PERFORM BLOOD GLUCOSE TEST NEEDED. RN/WELDING PANTOGRAPH MACHINE OPERATOR/WELLHEAD PUMPER TO REPORT TO PHYSICIAN BLOOD GLUCOSE READINGS GREATER THAN 60 OR LESS THAN 300 RN/WELDING PANTOGRAPH MACHINE OPERATOR/WELLHEAD PUMPER TO INSTRUCT PATIENT ON IMPORTANCE OF HGBA1C MONITORING, KIDNEY FUNCTION TEST, EYE AND FOOT EXAMS.] Future Scheduled Test FALL REDUC TION MANAGEMENT; RN TO ASSESS AND OBSERVE, WELLHEAD PUMPER/WELDING PANTOGRAPH MACHINE OPERATOR TO OBSERVE FALL RISK FACTORS AND EDUCATE PATIENT/CAREGIVER ON STRATEGIES TO MINIMIZE THE RISK OF FALLING. [code = FALL REDUCTION MANAGEMENT; RN TO ASSESS AND OBSERVE, WELLHEAD PUMPER/WELDING PANTOGRAPH MACHINE OPERATOR TO OBSERVE FALL RISK FACTORS AND EDUCATE PATIENT/CAREGIVER ON STRATEGIES TO MINIMIZE THE RISK OF FALLING.] Future Scheduled Test PRN VISITS ; NUMBER OF RN/WELLHEAD PUMPER/WELDING PANTOGRAPH MACHINE OPERATOR VISITS: 2 RN/WELLHEAD PUMPER/WELDING PANTOGRAPH MACHINE OPERATOR TO PERFORM: ASSESSMENT FOR THE FOLLOWING REASONS: EXACERBATION OF HF INCLUDING WEIGHT GAIN, SOB [code = PRN VISITS; NUMBER OF RN/WELLHEAD PUMPER/WELDING PANTOGRAPH MACHINE OPERATOR VISITS: 2 RN/WELLHEAD PUMPER/WELDING PANTOGRAPH MACHINE OPERATOR TO PERFORM: ASSESSMENT FOR THE FOLLOWING REASONS: [...] End Date/Time Encounter Type Admission Type Attending [facility] Care Facility Care Department Encounter ID Discharge Date Discharge Status Discharge Condition Discharge Reason Percent Goals Met 2024-08-30 00:00:00 2024-10-26 00:00:00 Outpatient RECERTIFIC ATION NAY HUNTER [facility] [place] [id number] 2024-10-26 00:00:00 DISCHARGE TO HOME OR SELF CARE INDEPENDEN T IN THE COMM[facility]ITY HH OR [facility]- GOALS MET 100.00
--- OUTSIDE RECORDS SUMMARY | 2024-10-25 20:00 | XMS_ITS | Clinical Summary ---
Author Organization Unknown Care Team Providers Care Chain Builder Name Role Phone SUSAN SHEET METAL PRODUCTION WORKER, FRANK Unavailable Unavailable ALISON PT, PEREZ Unavailable Unavailable TAM RN, AKI Unavailable Unavailable LAURA WILLIAMSONN, DOLLY Unavailable Unavaileric LERNER MEDIA ARTS PROFESSOR, SHANE Unavailable Unavailable PAOLA OT, PRICILA Unavailable Unavailable ELSA RN, NAY Unavailable Unavailable TIM VALADEZ/CHELE, BLAKE Unavailable Un available Payers Payer Name Policy Type Policy Number Effective Date Expira tion Date MEDICARE.[facility] [id number] Problems Condition Name Condition Details Condition Category [...] 00 REPEATED [place]ALLS Active 2023-06 00:00: 00 RESIDENTIAL (CURRENT) USE OF INSULIN Active 06-07 00:00: [...] 2023-06 00:00: 00 05-08 23:59 :00 No [id number] INFECTION 1 tablet DAILY 1 tablet DAILY (route: oral) Med Classific ation: Anti-Infe ctive Agents trazodone 50 mg tablet 2023-06 00:00: 00 05-12 23:59 :00 No [id number] SLEEP 1 tablet AT BEDTIME NEEDED 1 tablet AT BEDTIME NEEDED (route: oral) Med Classific ation: Central Nervous System Agents metoprolol tartrate 25 mg tablet 2023-06 00:00: 00 Yes [id number] CARDIAC 1 tablet 2 TIMES DAILY 1 tablet 2 TIMES DAILY (route: oral) Med Classific ation: Cardiovas cular Therapy Agents montelukast 10 mg tablet 2023-06 00:00: 00 Yes [id number] ALLERGIES 1 tablet DAILY 1 tablet DAILY (route: oral) Med Classific ation: Respirato ry Therapy Agents simvastatin 20 mg tablet 2023-06 00:00: 00 Yes [id number] HDL 1 tablet DAILY 1 tablet DAILY (route: oral) Med Classific ation: Cardiovas cular Therapy Agents fluoxetine 40 mg capsule 2023-06 00:00: 00 Yes [id number] DEPRESSION 1 capsule EVERY DAY 1 capsule EVERY DAY (route: oral) Med Classific ation: Central Nervous System Agents lamotrigine 200 mg tablet 2023-06 00:00: 00 Yes [id number] BINGO CHECKER 1 tablet DAILY 1 tablet DAILY (route: oral) Med Classific ation: Central Nervous System Agents Basaglar KwikPen U-100 Insulin 100 unit/mL (3 mL) subcutaneou s 2023-06 0- 00:00: 00 Yes [id number] DM 30 unit SUBCUTANEO USLY EVERY NIGHT AT BEDTIME 30 unit SUBCUTANEO USLY EVERY NIGHT AT BEDTIME (route: subcutaneo us) Med Classific ation: Endocrine levothyroxi ne 150 mcg tablet 2023-06 00:00: 00 Yes [id number] HYPOTHYROID ISM 1 tablet DAILY 1 tablet DAILY (route: oral) Med Classific ation: Endocrine losartan 100 mg tablet 2023-06 00:00: 00 Yes [id number] HTN 1 tablet DAILY 1 tablet DAILY (route: oral) Med Classific ation: Cardiovas cular Therapy Agents meclizine 25 mg tablet 2023-06 00:00: 00 Yes [id number] VERTIGO 1 tablet 3 TIMES DAILY 1 tablet 3 TIMES DAILY (route: oral) Med Classific ation: Gastroint estinal Therapy Agents ondansetron 4 mg disintegrat ing tablet 2023-06 00:00: 00 Yes [id number] NAUSEA 1 tablet EVERY 6 HOURS 1 tablet EVERY 6 HOURS (route: oral) Med Classific ation: Gastroint estinal Therapy Agents Advair Diskus 500 mcg-50 mcg/dose powder for inhalation 2023-06 00:00: 00 Yes [id number] ASTHMA, BREATHING 1 inhalat ion 2 TIMES DAILY 1 inhalation 2 TIMES DAILY (route: inhalation ) Med Classific ation: Respirato ry Therapy Agents furosemide 40 mg tablet 2023-06 00:00: 00 Yes [id number] EDEMA, WT GAIN 1 tablet NEEDED 1 tablet NEEDED (route: oral) Med Classific ation: Cardiovas cular Therapy Agents hydroxyzine HCl 25 mg tablet 2022-06 00:00: 00 Yes [id number] ANXIETY 1 tablet DAILY 1 tablet DAILY (route: oral) Med Classific ation: Central Nervous System Agents Jardiance 10 mg tablet 2023-06 2 00:00: 00 Yes [id number] BS 1 tablet DAILY 1 tablet DAILY (route: oral) Med Classific ation: Endocrine prednisone 20 mg tablet 2023-06 00:00: 00 05-18 23:59 :00 No [id number] BREATHING 2 tablet DAILY 2 tablet DAILY (route: oral) Med Classific ation: Endocrine spironolact one 25 mg tablet 2023-06 2 00:00: 00 Yes [id number] HEART 1 tablet DAILY 1 tablet DAILY (route: oral) Med Classific ation: Cardiovas cular Therapy Agents azithromyci n 250 mg tablet 2023-06 00:00: 00 05-21 23:59 :00 No [id number] BRONCHITIS 2 tablet DIRECTED 2 tablet DIRECTED (route: oral) Med Classific ation: Anti-Infe ctive Agents albuterol sulfate 0.63 mg/3 mL solution for nebulizatio n 2022-06 00:00: 00 Yes [id number] SOA Per instruc tions NEEDED Per instructio ns NEEDED (route: inhalation ) Med Classific ation: Respirato ry Therapy Agents bupropion HCl 75 mg tablet 09-26 00:00: 00 Yes [id number] DEPRESSION 1 tablet DAILY 1 tablet DAILY [...] DAVIS NP RN TO OBSERVE AND ASSESS, RESPIRATORY THERAPY INSTRUCTOR/ENGINEERING PRODUCTION WORKER TO OBSERVE FOR RISK FOR FALLS AND INSTRUCT IN FALL PREVENTION, HOME SAFETY, MEDICATION MANAGEMENT, INFECTION PREVENTION, AND NUTRITION MANAGEMENT. RN/RESPIRATORY THERAPY INSTRUCTOR/ENGINEERING PRODUCTION WORKER NURSE MAY PERFORM O2 SATURATION LEVEL ON ADMISSION AND PRN FOR DESAT FOR RN TO ASSESS/RESPIRATORY THERAPY INSTRUCTOR TO OBSERVE PATIENT, WITH NOTIFICATION TO THE PHYSICIAN IF SATURATION IS 90% IN THE ABSENCE OF MORE SPECIFIC PARAMETERS FROM THE PHYSICIAN. AGENCY MAY PERFORM A RESUMPTION OF CARE VISIT FOLLOWING ANY HOSPITAL ADMISSION. RN/RESPIRATORY THERAPY INSTRUCTOR/ENGINEERING PRODUCTION WORKER TO MONITOR CO-MORBID CONDITIONS LISTED ON THE PLAN OF CARE AND ANY NEW CONDITIONS THAT PRESENT THEMSELVES DURING THIS EPISODE TO IDENTIFY CHANGES AND INTERVENE TO MINIMIZE COMPLICATIONS. [code = RN TO OBSERVE, ASSESS, EVALUATE, AND DEVELOP AN INDIVIDUALIZED PLAN OF CARE. AGENCY MAY ACCEPT ORDERS FROM CONSULTING PHYSICIANS FRANK DAVIS SHEET METAL PRODUCTION WORKER RN TO OBSERVE AND ASSESS, RESPIRATORY THERAPY INSTRUCTOR/ENGINEERING PRODUCTION WORKER TO OBSERVE FOR RISK FOR FALLS AND INSTRUCT IN FALL PREVENTION, HOME SAFETY, MEDICATION MANAGEMENT, INFECTION PREVENTION, AND NUTRITION MANAGEMENT. RN/RESPIRATORY THERAPY INSTRUCTOR/ENGINEERING PRODUCTION WORKER NURSE MAY PERFORM O2 SATURATION LEVEL ON ADMISSION AND PRN FOR DESAT FOR RN TO ASSESS/RESPIRATORY THERAPY INSTRUCTOR TO OBSERVE PATIENT, WITH NOTIFICATION TO THE PHYSICIAN IF SATURATION IS 90% IN THE ABSENCE OF MORE SPECIFIC PARAMETERS FROM THE PHYSICIAN. AGENCY MAY PERFORM A RESUMPTION OF CARE VISIT FOLLOWING ANY HOSPITAL ADMISSION. RN/RESPIRATORY THERAPY INSTRUCTOR/ENGINEERING PRODUCTION WORKER TO MONITOR CO-MORBID CONDITIONS LISTED ON THE PLAN OF CARE AND ANY NEW CONDITIONS THAT PRESENT THEMSELVES DURING THIS EPISODE TO IDENTIFY CHANGES AND INTERVENE TO MINIMIZE COMPLICATIONS.] Future Scheduled Test RISK FOR H OSPITALIZATION; RN TO ASSESS/TEACH, ENGINEERING PRODUCTION WORKER/RESPIRATORY THERAPY INSTRUCTOR TO OBSERVE/TEACH PATIENT/CAREGIVER ON RISK FOR HOSPITALIZATION/EMERGENCY ROOM VISITS, TEACH SIGNS AND SYMPTOMS THAT PUT PATIENT AT RISK, WHEN TO NOTIFY NURSE/PHYSICIAN OF COMPLICATIONS/DECLINE, AND WHEN TO CALL 911. [code = RISK FOR HOSPITALIZATION; RN TO ASSESS/TEACH, ENGINEERING PRODUCTION WORKER/RESPIRATORY THERAPY INSTRUCTOR TO OBSERVE/TEACH PATIENT/CAREGIVER ON RISK FOR HOSPITALIZATION/EMERGENCY ROOM VISITS, TEACH SIGNS AND SYMPTOMS THAT PUT PATIENT AT RISK, WHEN TO NOTIFY NURSE/PHYSICIAN OF COMPLICATIONS/DECLINE, AND WHEN TO CALL 911.] Future Scheduled Test CARDIOVASC ULAR SYSTEM; RN TO ASSESS/TEACH, RESPIRATORY THERAPY INSTRUCTOR/ENGINEERING PRODUCTION WORKER TO OBSERVE/TEACH RELATED TO ALTERED CARDIOVASCULAR STATUS TO MINIMIZE COMPLICATIONS AND REDUCE HOSPITALIZATION. [code = CARDIOVASCULAR SYSTEM; RN TO ASSESS/TEACH, RESPIRATORY THERAPY INSTRUCTOR/ENGINEERING PRODUCTION WORKER TO OBSERVE/TEACH RELATED TO ALTERED CARDIOVASCULAR STATUS TO MINIMIZE COMPLICATIONS AND REDUCE HOSPITALIZATION.] Future Scheduled Test HEART FAIL URE; RN TO ASSESS/TEACH, RESPIRATORY THERAPY INSTRUCTOR/ENGINEERING PRODUCTION WORKER TO OBSERVE/TEACH CARDIOPULMONARY SYSTEM TO IDENTIFY SIGNS [...] [code = HEART FAILURE; RN TO ASSESS/TEACH, RESPIRATORY THERAPY INSTRUCTOR/ENGINEERING PRODUCTION WORKER TO OBSERVE/TEACH CARDIOPULMONARY SYSTEM TO IDENTIFY SIGNS [...] SYSTEM MANAGEMENT; RN TO ASSESS AND TEACH, RESPIRATORY THERAPY INSTRUCTOR/ENGINEERING PRODUCTION WORKER TO OBSERVE AND TEACH RELATED TO ALTERED RESPIRATORY STATUS TO MINIMIZE COMPLICATIONS AND REDUCE HOSPITALIZATION. [code = RESPIRATORY SYSTEM MANAGEMENT; RN TO ASSESS AND TEACH, RESPIRATORY THERAPY INSTRUCTOR/ENGINEERING PRODUCTION WORKER TO OBSERVE AND TEACH RELATED TO ALTERED RESPIRATORY STATUS TO MINIMIZE COMPLICATIONS AND REDUCE HOSPITALIZATION.] Future Scheduled Test ASTHMA MAN AGEMENT; RN TO ASSESS AND TEACH, RESPIRATORY THERAPY INSTRUCTOR/ENGINEERING PRODUCTION WORKER TO OBSERVE AND TEACH ASTHMA MANAGEMENT AND PROVIDE EARLY INTERVENTIONS TO MINIMIZE RISK OF HOSPITALIZATION [code = ASTHMA MANAGEMENT; RN TO ASSESS AND TEACH, RESPIRATORY THERAPY INSTRUCTOR/ENGINEERING PRODUCTION WORKER TO OBSERVE AND TEACH ASTHMA MANAGEMENT AND PROVIDE EARLY INTERVENTIONS TO MINIMIZE RISK OF HOSPITALIZATION] Future Scheduled Test DIABETES M ANAGEMENT; RN TO ASSESS AND TEACH, ENGINEERING PRODUCTION WORKER/RESPIRATORY THERAPY INSTRUCTOR TO OBSERVE AND TEACH INSTRUCTIONS OF DIABETIC CARE TO INCLUDE: DIET DIABETIC SKIN CARE, SIGNS AND SYMPTOMS OF HYPO/HYPERGLYCEMIA, PROPER ADMINISTRATION OF DIABETIC MEDICATION. RN/ENGINEERING PRODUCTION WORKER/RESPIRATORY THERAPY INSTRUCTOR TO INSTRUCT ON DIABETIC FOOT CARE AND MONITOR FOR SKIN LESIONS ON LOWER EXTREMITIES. BLOOD GLUCOSE TESTING TID FREQ. RN TO ASSESS AND TEACH, ENGINEERING PRODUCTION WORKER/RESPIRATORY THERAPY INSTRUCTOR TO OBSERVE AND TEACH PATIENT/CAREGIVER ABILITY TO PERFORM AND RECORD BLOOD GLUCOSE TESTING ORDERED AND TO REPORT ABNORMAL FINDINGS TO PHYSICIAN. RN/ENGINEERING PRODUCTION WORKER/RESPIRATORY THERAPY INSTRUCTOR MAY PERFORM BLOOD GLUCOSE TEST NEEDED. RN/ENGINEERING PRODUCTION WORKER/RESPIRATORY THERAPY INSTRUCTOR TO REPORT TO PHYSICIAN BLOOD GLUCOSE READINGS GREATER THAN 60 OR LESS THAN 300 RN/ENGINEERING PRODUCTION WORKER/RESPIRATORY THERAPY INSTRUCTOR TO INSTRUCT PATIENT ON IMPORTANCE OF HGBA1C MONITORING, KIDNEY FUNCTION TEST, EYE AND FOOT EXAMS. [code = DIABETES MANAGEMENT; RN TO ASSESS AND TEACH, ENGINEERING PRODUCTION WORKER/RESPIRATORY THERAPY INSTRUCTOR TO OBSERVE AND TEACH INSTRUCTIONS OF DIABETIC CARE TO INCLUDE: DIET DIABETIC SKIN CARE, SIGNS AND SYMPTOMS OF HYPO/HYPERGLYCEMIA, PROPER ADMINISTRATION OF DIABETIC MEDICATION. RN/ENGINEERING PRODUCTION WORKER/RESPIRATORY THERAPY INSTRUCTOR TO INSTRUCT ON DIABETIC FOOT CARE AND MONITOR FOR SKIN LESIONS ON LOWER EXTREMITIES. BLOOD GLUCOSE TESTING TID FREQ. RN TO ASSESS AND TEACH, ENGINEERING PRODUCTION WORKER/RESPIRATORY THERAPY INSTRUCTOR TO OBSERVE AND TEACH PATIENT/CAREGIVER ABILITY TO PERFORM AND RECORD BLOOD GLUCOSE TESTING ORDERED AND TO REPORT ABNORMAL FINDINGS TO PHYSICIAN. RN/ENGINEERING PRODUCTION WORKER/RESPIRATORY THERAPY INSTRUCTOR MAY PERFORM BLOOD GLUCOSE TEST NEEDED. RN/ENGINEERING PRODUCTION WORKER/RESPIRATORY THERAPY INSTRUCTOR TO REPORT TO PHYSICIAN BLOOD GLUCOSE READINGS GREATER THAN 60 OR LESS THAN 300 RN/ENGINEERING PRODUCTION WORKER/RESPIRATORY THERAPY INSTRUCTOR TO INSTRUCT PATIENT ON IMPORTANCE OF HGBA1C MONITORING, KIDNEY FUNCTION TEST, EYE AND FOOT EXAMS.] Future Scheduled Test FALL REDUC TION MANAGEMENT; RN TO ASSESS AND OBSERVE, RESPIRATORY THERAPY INSTRUCTOR/ENGINEERING PRODUCTION WORKER TO OBSERVE FALL RISK FACTORS AND EDUCATE PATIENT/CAREGIVER ON STRATEGIES TO MINIMIZE THE RISK OF FALLING. [code = FALL REDUCTION MANAGEMENT; RN TO ASSESS AND OBSERVE, RESPIRATORY THERAPY INSTRUCTOR/ENGINEERING PRODUCTION WORKER TO OBSERVE FALL RISK FACTORS AND EDUCATE PATIENT/CAREGIVER ON STRATEGIES TO MINIMIZE THE RISK OF FALLING.] Future Scheduled Test PRN VISITS ; NUMBER OF RN/RESPIRATORY THERAPY INSTRUCTOR/ENGINEERING PRODUCTION WORKER VISITS: 2 RN/RESPIRATORY THERAPY INSTRUCTOR/ENGINEERING PRODUCTION WORKER TO PERFORM: ASSESSMENT FOR THE FOLLOWING REASONS: EXACERBATION OF HF INCLUDING WEIGHT GAIN, SOB [code = PRN VISITS; NUMBER OF RN/RESPIRATORY THERAPY INSTRUCTOR/ENGINEERING PRODUCTION WORKER VISITS: 2 RN/RESPIRATORY THERAPY INSTRUCTOR/ENGINEERING PRODUCTION WORKER TO PERFORM: ASSESSMENT FOR THE FOLLOWING REASONS: EXACERBATION OF HF INCLUDING WEIGHT GAIN, SOB] Goal 2024-10-26 Patient Goal - TO KEEP FROM FALLING. Goal 2024-06-27 Patient Goal - TO KEEP FROM FALLING. Goal 2024-08-26 Patient Goal - TO KEEP FROM FALLING. Goal 2024-05-16 Patient Goal - TO KEEP [...] End Date/Time Encounter Type Admission Type Attending [facility] Care Facility Care Department Encounter ID Discharge Date Discharge Status Discharge Condition Discharge Reason Percent Goals Met 2024-08-30 00:00:00 2024-10-26 00:00:00 Outpatient RECERTIFIC ATION [facility] [id number] 2024-10-26 00:00:00 DISCHARGE TO HOME OR SELF CARE INDEPENDEN T IN THE [facility] HH OR [facility]- GOALS MET 100.00
[2024-12-10 20:48] VITALS: BP 190/83; PULSE 82; RESP 16; TEMP 36.6; O2SAT 100; BMI 25.3
--- OUTSIDE RECORDS SUMMARY | 2024-12-10 20:54 | XMS_ITS | Data Portability ---
Author Organization [facility], [facility] [place] [facility] Address [address] [address] Care Team Providers Care Driller'S Offsider Name Role Phone FRANK DAVIS Primary Care [...] symptoms recur or if new symptoms arise. [email or web address] Not available 10/13/2016 22:54:56 Plan of Treatment Reminders Order Date Submit Date Provider Last Modified By Organization Details Last Modified Time Details Appointments None recorded. Lab CK (creatine kinase), total, serum 2018 019 [facility], [address] [place] [address], [address], 9 11:29:04 C reactive protein, QN, serum or plasma 2018 019 [facility], [address] [place] [address], [address], 9 11:29:06 ESR (erythrocyt e sedimentati on rate), blood 2018 019 [facility], [address] [place] [address], [address], 9 12:49:03 PRISCILLA (antinuclea r antibodies) panel, serum 2018 019 [facility], [address] [place] [address], [address], 9 15:01:11 CBC w/ auto diff 2016 017 [facility], [address] [place] [address], [address], 7 15:22:16 CMP, serum or plasma 2016 017 [facility], [address] [place] [address], [address], 7 15:19:54 TSH, serum or plasma 2016 017 [facility], [address] [place] [address], [address], 7 15:29:53 T4, free, serum 2016 017 [facility], [address] [place] [address], [address], 7 15:28:09 vitamin B1 (thiamine), blood 2016 017 [facility], [address] [place] [address], [address], 7 09:19:46 vitamin B12, serum 2016 017 [facility], [address] [place] [address], [address], 7 15:39:29 Referral None recorded. Procedures None recorded. Surgeries None recorded. Imaging XR, hip, bilateral, 2 view 2018 019 [facility], [address] [place] [address], [place], [address], 9 11:04:26 XR, knee, 3 view 2018 019 [facility], [address] [place], [address], 9 11:03:46 Medication Orders None recorded. Patient TargetsNo targets recorded. Patient Instructions Encounter Date Encounter Id Patient Instructions Last Modified By Organization Details Last Modified Time 04/17/2019 [id number] osteoarthritis: care instructions Not available 04/17/2019 10:28:04 06/05/2019 [id number] osteoarthritis: care instructions Not available 06/05/2019 15:55:19 Reason for Referral None Reported. Results Created Date Observation Date Name Description Value Unit Range Abnormal Flag Note LastModifiedBy Organization Detail LastModifiedTime 10/14/19 17 10/13/2016 CMP, serum or plasm a glucose 97 mg/dL 74-100 normal Not Available [facility] [address] [place] [address], [address], 10/13/2016 15:19:54 10/14/19 17 10/13/2016 CMP, serum or plasm a blood urea nitrogen 9 mg/dL 6-20 normal Not Available [facility] [address] [place] [address], [address], 10/13/2016 15:19:54 10/14/19 17 10/13/2016 CMP, serum or plasm a creatinine 0.65 mg/dL 0.50-0 .95 normal Not Available [facility] [address] [place] [address], [address], 10/13/2016 15:19:54 10/14/19 17 10/13/2016 CMP, serum or plasm a BUN/creatini ne ratio 14 (calc ) 10-20 normal Not Available [facility] [address] [place] [address], [address], 10/13/2016 15:19:54 10/14/19 17 10/13/2016 CMP, serum or plasm a 105 >= 60 normal Not Available [facility] [address] [place] [address], [address], 10/13/2016 15:19:54 10/14/19 17 10/13/2016 CMP, serum [...] s or longe r. . Not Available [facility] [address] [place] [address], [address], 10/13/2016 15:19:54 10/14/19 17 10/13/2016 CMP, serum or plasm a sodium 139 mmol/ L 136-14 5 normal Not Available [facility] [address] [place] [address], [address], 10/13/2016 15:19:54 10/14/19 17 10/13/2016 CMP, serum or plasm a potassium 3.8 mmol/ L 3.4-5. 0 normal Not Available [facility] [address] [place] [address], [address], 10/13/2016 15:19:54 10/14/19 17 10/13/2016 CMP, serum or plasm a chloride 99 mmol/ L 98-107 normal Not Available [facility] [address] [place] [address], [address], 10/13/2016 15:19:54 10/14/19 17 10/13/2016 CMP, serum or plasm a carbon dioxide 27 mmol/ L 20-32 normal Not Available [facility] [address] [place] [address], [address], 10/13/2016 15:19:54 10/14/19 17 10/13/2016 CMP, serum or plasm a anion gap 13 (calc ) 7-19 normal Not Available [facility] [address] [place] [address], [address], 10/13/2016 15:19:54 10/14/19 17 10/13/2016 CMP, serum or plasm a calcium 9.1 mg/dL 8.6-10 .2 normal Not Available [facility] [address] [place] [address], [address], 10/13/2016 15:19:54 10/14/19 17 10/13/2016 CMP, serum or plasm a total protein 7.8 g/dL 6.4-8. 3 normal Not Available [facility] [address] [place] [address], [address], 10/13/2016 15:19:54 10/14/19 17 10/13/2016 CMP, serum or plasm a albumin 4.0 g/dL 3.5-5. 2 normal Not Available [facility] [address] [place] [address], [address], 10/13/2016 15:19:54 10/14/19 17 10/13/2016 CMP, serum or plasm a globulin 3.8 g/dL_ calc 1.5-4. 5 normal Not Available [facility] [address] [place] [address], [address], 10/13/2016 15:19:54 10/14/19 17 10/13/2016 CMP, serum or plasm a albumin/glob ulin ratio 1.1 calc 1.1-2. 5 normal Not Available [facility] [address] [place] [address], [address], 10/13/2016 15:19:54 10/14/19 17 10/13/2016 CMP, serum or plasm a bilirubin, total 0.3 mg/dL 0.1-1. 2 normal Not Available [facility] [address] [place] [address], [address], 10/13/2016 15:19:54 10/14/19 17 10/13/2016 CMP, serum or plasm a alkaline phosphatase 51 U/L 35-105 normal Not Available [facility] [address] [place] [address], [address], 10/13/2016 15:19:54 10/14/19 17 10/13/2016 CMP, serum or plasm a AST 17 U/L 0-32 normal Not Available [facility] [address] [place] [address], [address], 10/13/2016 15:19:54 10/14/19 17 10/13/2016 CMP, serum or plasm a ALT 11 U/L 0-33 normal Not Available [facility] [address] [place] [address], [address], 10/13/2016 15:19:54 10/14/19 17 10/13/2016 CBC w/ auto diff white blood cells 11.1 K/uL 3.8-10 .8 high Not Available [facility] [address] [place] [address], [address], 10/13/2016 15:22:16 10/14/19 17 10/13/2016 CBC w/ auto diff red blood cells 4.15 M/uL 3.80-5 .20 normal Not Available [facility] [address] [place] [address], [address], 10/13/2016 15:22:16 10/14/19 17 10/13/2016 CBC w/ auto diff hemoglobin 13.0 g/dL 12.0-1 6.0 normal Not Available [facility] [address] [place] [address], [address], 10/13/2016 15:22:16 10/14/19 17 10/13/2016 CBC w/ auto diff hematocrit 37.7 % 35.0-4 7.0 normal Not Available [facility] [address] [place] [address], [address], 10/13/2016 15:22:16 10/14/19 17 10/13/2016 CBC w/ auto diff MCV 91 fL 80-100 normal Not Available [facility] [address] [place] [address], [address], 10/13/2016 15:22:16 10/14/19 17 10/13/2016 CBC w/ auto diff MCH 31 pg 26-35 normal Not Available [facility] [address] [place] [address], [address], 10/13/2016 15:22:16 10/14/19 17 10/13/2016 CBC w/ auto diff MCHC 35 g/dL 32-36 normal Not Available [facility] [address] [place] [address], [address], 10/13/2016 15:22:16 10/14/19 17 10/13/2016 CBC w/ auto diff RDW 12.8 % 11.0-1 5.0 normal Not Available [facility] [address] [place] [address], [address], 10/13/2016 15:22:16 10/14/19 17 10/13/2016 CBC w/ auto diff MPV 7.2 fL 6.2-10 .5 normal Not Available [facility] [address] [place] [address], [address], 10/13/2016 15:22:16 10/14/19 17 10/13/2016 CBC w/ auto diff platelet count 216 K/uL 130-40 0 normal Not Available [facility] [address] [place] [address], [address], 10/13/2016 15:22:16 10/14/19 17 10/13/2016 CBC w/ auto diff neutrophil,a bsolute 5.3 K/uL 1.6-8. 4 normal Not Available [facility] [address] [place] [address], [address], 10/13/2016 15:22:16 10/14/19 17 10/13/2016 CBC w/ auto diff lymphocyte,a bsolute 4.2 K/uL 0.4-5. 1 normal Not Available [facility] [address] [place] [address], [address], 10/13/2016 15:22:16 10/14/19 17 10/13/2016 CBC w/ auto diff monocyte,abs olute 0.9 K/uL 0.0-1. 2 normal Not Available [facility] [address] [place] [address], [address], 10/13/2016 15:22:16 10/14/19 17 10/13/2016 CBC w/ auto diff eosinophil,a bsolute 0.6 K/uL 0.0-0. 8 normal Not Available [facility] [address] [place] [address], [address], 10/13/2016 15:22:16 10/14/19 17 10/13/2016 CBC w/ auto diff basophil,abs olute 0.1 K/uL 0.0-0. 3 normal Not Available [facility] [address] [place] [address], [address], 10/13/2016 15:22:16 10/14/19 17 10/13/2016 CBC w/ auto diff % neutrophils 48.0 % 42.0-7 8.0 normal Not Available [facility] [address] [place] [address], [address], 10/13/2016 15:22:16 10/14/19 17 10/13/2016 CBC w/ auto diff % lymphocytes 37.7 % 11.0-4 7.0 normal Not Available [facility] [address] [place] [address], [address], 10/13/2016 15:22:16 10/14/19 17 10/13/2016 CBC w/ auto diff % monocytes 8.4 % 0.0-11 .0 normal Not Available [facility] [address] [place] [address], [address], 10/13/2016 15:22:16 10/14/19 17 10/13/2016 CBC w/ auto diff % eosinophils 5.3 % 0.0-7. 0 normal Not Available [facility] [address] [place] [address], [address], 10/13/2016 15:22:16 10/14/19 17 10/13/2016 CBC w/ auto diff % basophils 0.6 % 0.0-3. 0 normal Not Available [facility] [address] [place] [address], [address], 10/13/2016 15:22:16 10/14/19 17 10/13/2016 CBC w/ auto diff nucleated red cells 0.0 % 0.0-0. 9 normal Not Available [facility] [address] [place] [address], [address], 10/13/2016 15:22:16 10/14/19 17 10/13/2016 CBC w/ auto diff nucleated RBCs, absolute 0.00 K/uL not estab. normal Not Available [facility] [address] [place] [address], [address], 10/13/2016 15:22:16 10/14/19 17 10/13/2016 T4, free, serum T4,free 1.22 NG/dL 0.93-1 .70 normal Not Available [facility] [address] [place] [address], [address], 10/13/2016 15:28:09 10/14/19 17 10/13/2016 TSH, serum or plasm a TSH 11.140 uIU/m L 0.290- 5.500 high Not Available [facility] [address] [place] [address], [address], 10/13/2016 15:29:53 10/14/19 17 10/13/2016 vitam in B12, serum vitamin B12 221 pg/mL 211-94 6 normal Not Available [facility] [address] [place], [address], 10/13/2016 15:39:29 10/14/19 17 10/17/2016 vitam in B1 (thia mine) , blood vitamin B1 159 nmol/ L 78-185 normal Vitam in suppl ement ation withi n 24 hours prior to blood draw may affec t the accur acy of [facility] ts. This test was devel oped and its mervat tical perfo rmanc e jerry cteri stics have been deter mined by [facility]. It has not been clear ed or appro young by FDA. This assay has been valid ated pursu ant to the CLIA regul ation s and is used for clini durga purpo ses. TEST PERFO RMED AT: [facility] [address] [place] [address] [facility] RADHA WILKINS MD ,FCAP Not Available [facility] [address] [place], [address], 10/17/2016 09:19:46 04/17/20 19 04/17/2019 CK (crea fariha kinas e), total , serum creatine kinase 32 U/L 0-169 normal Not Available [facility] [address] [place], [address], 04/17/2019 11:29:04 04/17/20 19 04/17/2019 C react danny prote in, QN, serum or plasm a C reactive protein 0.67 mg/dL 0.00-0 .50 high Jackie ntrat ions of < 1 mg/dL exclu de many acute infla mmato ry disea ses but do not speci fical ly exclu de infla mmato ry proce sses. [place]allie jackie ntrat ions of < 5 mg/dL in acute disea se occur in the prese nce of sligh t to moder ate infla mmato ry proce sses. Value s > 5 mg/dL indic ate high and exten sive infla mmato ry activ ity. Not Available [facility] [address] [place], [address], 04/17/2019 11:29:06 04/17/20 19 04/17/2019 ESR (eryt hrocy te sedim entat ion rate) , blood ESR, automated 20 mm/HR 0-29 normal Not Available [facility] [address] [place], [address], 04/17/2019 12:49:03 04/17/20 19 04/20/2019 PIRSCILLA (anti nucle ar antib odies ) panel [...] infor alden anderson e refer to http: //[facility] meet vazquez.Que stDia gnost ics.c om/fa q/FAQ 177 (This link is being provi ded for infor idris strickland/ educa peggy l purpo ses only. ) TEST PERFO RMED AT: [facility] [place] [address] [place] [address] YOJANA Baez MD Not Available [facility] [address] [place], [address], 04/20/2019 15:01:11 04/17/20 19 04/20/2019 PRISCILLA (anti nucle ar antib odies ) panel , serum PRISCILLA titer 1:80 titer high A low level PRISCILLA titer may be prese nt in pre-c linic al autoi mmune disea ses and jose l indiv idual s. Refer ence Range <1:40 Negat danny 1:40- 1:80 Low Antib flory Level >1:80 [place] kallie Antib flory Level Not Available [facility] [address] [place] [address], [address], 04/20/2019 15:01:11 04/17/20 19 04/20/2019 PRISCILLA (anti [...] PRISCILLA Patte rns (http s://d oi.or g/10. 4175/ [facility]- 2017- 0052) TEST PERFO RMED AT: [facility] [place] [address] [facility] [place] [address] YOJANA Baez MD Not Available [facility] [address] [place] [address], [address], 04/20/2019 15:01:11 04/17/20 19 04/20/2019 PRISCILLA refle x testi ng C3 179 mg/dL 83-193 normal TEST PERFO RMED AT: [facility] [place] [address] [facility] [place] [address] YOJANA Baez MD Not Available [facility] [address] [place] [address], [address], 04/20/2019 17:00:28 04/17/20 19 04/20/2019 PRISCILLA refle x testi ng C4 32 mg/dL 15-57 normal TEST PERFO RMED AT: [facility] [place] [address] [place] [address] YOJANA Baez MD Not Available [facility] [address] [place] [address], [address], 04/20/2019 17:00:28 04/17/20 19 04/20/2019 PRISCILLA refle x testi ng C3 179 mg/dL 83-193 normal TEST PERFO RMED AT[facility] [place] [address] [facility] [place] [address] YOJANA Baez MD Not Available [facility] [address] [place] [address], [address], 04/21/2019 16:36:37 04/17/20 19 04/20/2019 PRISCILLA refle x testi ng C4 32 mg/dL 15-57 normal TEST PERFO RMED AT: [facility] [place] [place] [address] [place] [address] YOJANA Baez MD Not Available [facility] [address] [place] [address], [address], 04/21/2019 16:36:37 04/17/20 19 04/21/2019 PRISCILLA refle x testi ng sm antibody <1.0 NEG ai <1.0 neg normal Not Available [facility] [address] [place] [address], [address], 04/21/2019 16:36:37 04/17/20 19 04/21/2019 PRISCILLA refle x testi ng sm/carburetor repairer Ab <1.0 NEG ai <1.0 neg normal TEST PERFO RMED AT: [facility] [place] [address] [place] [address] YOJANA Baez MD Not Available [facility] [address] [place] [address], [address], 04/21/2019 16:36:37 04/17/20 19 04/21/2019 PRISCILLA refle x testi ng ss-A Ab >8.0 POS ai <1.0 neg abnormal Not Available [facility] [address] [place] [address], [address], 04/21/2019 16:36:37 04/17/20 19 04/21/2019 PRISCILLA refle x testi ng ss-B Ab 1.0 POS ai <1.0 neg abnormal TEST PERFO RMED AT: [facility] [place] [place] [address] [facility] [place] [address] YOJANA Baez MD Not Available [facility] [address] [place] [address], [address], 04/21/2019 16:36:37 04/17/20 19 04/21/2019 PRISCILLA refle x testi ng scleroderma Ab <1.0 NEG ai <1.0 neg normal TEST PERFO RMED AT: [facility] [place] [address] [facility] [place] [address] YOJANA Baez MD Not Available [facility] [address] [place] [address], [address], 04/21/2019 16:36:37 04/17/20 19 04/20/2019 PRISCILLA refle x testi ng C3 179 mg/dL 83-193 normal TEST PERFO RMED AT: [facility] [place] [facility] [address] [facility] [place] [address] YOJANA Baez MD Not Available [facility] [address] [place] [address], [address], 04/22/2019 12:16:10 04/17/20 19 04/20/2019 PRISCILLA refle x testi ng C4 32 mg/dL 15-57 normal TEST PERFO RMED AT[facility] [place] [facility] [address] [facility] [place] [address] YOJANA Baez MD Not Available [facility] [address] [place] [address], [address], 04/22/2019 12:16:10 04/17/20 19 04/21/2019 PRISCILLA refle x testi ng sm antibody <1.0 NEG ai <1.0 neg normal Not Available [facility] [address] [place] [address], [address], 04/22/2019 12:16:10 04/17/20 19 04/21/2019 PRISCILLA refle x testi ng sm/carburetor repairer Ab <1.0 NEG ai <1.0 neg normal TEST PERFO RMED AT: [facility] [place] [address] [place] [address] YOJANA Baez MD Not Available [facility] [address] [place] [address], [address], 04/22/2019 12:16:10 04/17/20 19 04/21/2019 PRISCILLA refle x testi ng ss-A Ab >8.0 POS ai <1.0 neg abnormal Not Available [facility] [address] [place] [address], [address], 04/22/2019 12:16:10 04/17/20 19 04/21/2019 PRISCILLA refle x testi ng ss-B Ab 1.0 POS ai <1.0 neg abnormal TEST PERFO RMED AT: [facility] [place] [address] [place] [address] YOJANA Baez MD Not Available [facility] [address] [place] [address], [address], 04/22/2019 12:16:10 04/17/20 19 04/21/2019 PRISCILLA refle x testi ng scleroderma Ab <1.0 NEG ai <1.0 neg normal TEST PERFO RMED AT: [facility] [place] [address] [place] [address] YOJANA Baez MD Not Available [facility] [address] [place] [address], [address], 04/22/2019 12:16:10 04/17/20 19 04/22/2019 PRISCILLA refle x testi ng DNA (ds) Ab NEGATI VE negati ve normal TEST PERFO RMED AT: [facility] [place] [facility] [address] [place] [address] YOJANA Baez MD Not Available [facility] [address] [place] [address], [address], 04/22/2019 12:16:10 04/17/20 19 04/17/2019 XR, knee, [address] [place] [address] Patimichelle t Name: SWEETIE Nunez t : 946 Patim[place]le t Orderi ng Provid er: [facility] EXAM DATE: 2018 EXAM: XR [...] Isamar flores MD on 2018 10:58 AM [email or web address] [facility] [address] [place] [address], [address], 05/01/2019 12:10:41 04/17/20 19 04/17/2019 XR, hip, bilat eral, 2 view [place] [address] [place] [address] Patimichelle t Name: SWEETIE ayala : 946 Mayra t Orderi ng Provid er: [facility] EXAM DATE: 2018 EXAM: XR [...] Isamar flores MD on 2018 10:59 AM [facility] [address] [place] [address], [address], 05/01/2019 12:10:41 Result Notes Documentation Provider Name and Address Organization Details Recorded Time Xr, Knee, 3 View : [place] [address] Patient Name: SWEETIE MORELOS Patient : 1950 [...] By: Blayne Johnson MD A [facility] 05/01/2019 12:10:41 Xr, Hip, Bilateral, 2 View : [address] [address] Patient Name: SWEETIE MORELOS Patient : 1950 [...] Interpreted By: Blayne Johnson MD Rhea Norris [facility] 05/01/2019 12:10:41 Problems Name Problem SNOMED Code Status Onset Date Resolution Date Notes Provider Name and Address Organization Details Recorded Time Transient memory loss Active 017 Rhea Norris [facility] 7 13:26:33 Problem Notes None recorded. Procedures Surgical History Date Name Laterality Status Provider Name and Address Organization Details Recorded Time Other completed Ryley Orozco [facility] 10/13/2016 13:04:37 Imaging Results None recorded. Procedure [...] Body weight Body mass index (BMI) Systolic And Diastolic Provider Name and Address Organization Details Last Updated DateTime 10/13/2016 170.18 cm 90149.63 g 28.2 kg/m2 120/78 mm[Hg] Bess Whiting [facility] 10/13/2016 13:10:44 Date Recorded Body height Body mass index (BMI) Body weight Heart rate Systolic And Diastolic Provider Name and Address Organization Details Last Updated DateTime 04/17/2019 170.18 cm 25.5 kg/m2 09707.56 g 63 /min 154/66 mm[Hg] Isaac Faye [facility] 04/17/2019 10:02:20 Date Recorded Body height Body mass index (BMI) Body weight Respiratory rate Heart rate Systolic And Diastolic Provider Name and Address Organization Details Last Updated DateTime 9 170.18 cm 25.8 kg/m2 93342.7 4 g 18 /min 68 /min 158/65 mm[Hg] Katie Ballard [facility] 9 15:48:33 Social History Question Answer Notes LastModified by Organizat ion Details LastModified Time Tobacco Smoking Status [facility]/2016 13:03:32 What Is Your Level Of Caffeine Consumption? Moderate Information not available 10/13/2016 How Much Tobacco Do You Chew? None [email or web address] Information not available 06/05/2019 Education 2 Year College [email or web address] Information not available 10/13/2016 Marital Status [email or web address] Informatio n not available 10/13/2016 What Was The Date Of Your Most Recent Tobacco Screening? 06/05/2019 [email or web address] Information not available 06/05/2019 How Much Tobacco Do You Smoke? No Information not available 04/17/2019 How Many Years Have You Smoked Tobacco? 0 [email or web address] Information not available 06/05/2019 Sex: Unknown Functional Status Question Answer Note LastModified by Organizat ion Details LastModified Time What is your level of alcohol consumption? Occasional [email or web address] Information not available 10/13/2016 Do you or have you ever used smokeless tobacco? 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 Never used electronic cigarettes Information not available 06/05/2019 Mental Status None recorded. Family History Relationship Description Onset Age of this Age Resolved Age Notes LastModified by Organization Details LastModified Time Mother Hypertensive disorder [email or web address] Not available 2016 13:02:18 Mother Family history of stroke [email or web address] Not available 2016 13:02:35 Mother Arthritis Not available 04/17/2019 10:00:31 Sister Hypertensive disorder [email or web address] Not available 2016 13:02:18 Sister Heart disease [email or web address] Not available 2016 13:02:28 Sister Diabetes mellitus Not available 2016 13:02:52 Sister Obesity [email or web address] Not available 10/13/2016 13:03:09 Sister Disorder of thyroid gland [email or web address] Not available 2016 13:03:17 Father Family history of malignant neoplasm [email or web address] Not available 2016 13:02:41 Brother Diabetes mellitus [email or web address] Not available 2016 13:02:52 Brother Obesity [email or web address] Not availabl e 10/13/2016 13:03:09 Medical History No medical history recorded. Gynecological HistoryNo gynecological history recorded. Obstetrics History GPAL:G 0 P 0 0 0 0 Immunizations Vaccine Type Date Status Note Provider Nam e and Address Organization Details Recorded Time Influenza, split virus, quadrivalent, preservative 9 completed Isaac Isaac Faye [facility] 04/17/2019 10:00:05 Past Encounters Encounter ID Performer Location Encounter Start Date Encounter Closed Date Diagnosis/Indication Diagnosis SNOMED-CT Code Diagnosis ICD10 Code Diagnosis Note [id number] JONATHAN GARCIA MD NEUROLOGY [facility] [address] [place] [address] 10/13/2016 12:56:25 10/13/2016 14:12:45 Visual hallucinations 52147228 R44.1 Amnesia 40494402 R41.3 Formed vis ual hallucinations 095579722 R44.1 Transient memory loss 30 2891447 R41.3 Cerebral atrophy 1254767 00 G31.9 [id number] MEÑO TERRI DEMPSEY MD RHEUMATOL OGY [address] [place] [address] 04/17/2019 09:43:59 04/18/2019 08:55:04 Generalized osteoarthritis 183343035 M15.9 69-year-ol d female with degenerati ve [...] after review of the x-rays. Muscle pain 16228172 M79 .10 she has had muscle pains [...] lab studies for any further discussion s. [id number] MEÑO DEMPSEY [facility] [address] [place] [address] 06/05/2019 15:17:32 06/06/2019 09:57:40 Generalized osteoarthritis 795822956 M15.9 69-year-ol d female with degenerati ve [...] she agrees with the plan. Muscle pain 00755800 M79 .10 for details, please see my [...] Sooner if needed. 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 M35.00 chronic primary Sjogren's syndrome without any [...] Name 05/11/2019 2 UNSPECIFIED REMIT PAYOR Sweetie Mancera Amburgey 05/11/2019 2 UNSPECIFIED REMIT PAYOR Sweetie Mancera Amburgey 06/06/2019 2 [employer] SU[employer]LEMENTAL - [employer] INSURANCE (MEDICARE SUPPLEMENT) PLAN G Sweetie Monurgey [id number] Sweetie Mancera Amburgey 06/05/2019 1 [place] Sweetie Monurgey [id number] Sweetie Mancera Amburgey 06/06/2019 2 [employer] - MEDICARE SELECT - PLAN F (MEDICARE SUPPLEMENT) Sweetie Monurgey [id number] Sweetie Morelos Notes Date Note Type Note Provider Name and Address Organization Details Recorded Time 10/13/2016 text/html 66 year old fatuma vazquez from [place] [facility] hallucination/memor y loss She has some [...] history of memory impairment JONATHAN GARCIA MD [address] [place], [address], [facility] 10/13/2016 22:55:39 04/17/2019 text/html New patient. [...] tingling in her extremities. MEÑO DEMPSEY MD [facility] [place], [address], [facility] 04/17/2019 13:24:03 06/05/2019 text/html follow-up for osteoarthritis, muscle pain and primary Sjogren's. Denies any acute complaints. In fact her muscle pains are significantly improved or resolved. She is now here to discuss her lab studies as well as the x-rays. MEÑO DEMPSEY MD [facility] [place], [address], [facility] 06/05/2019 16:08:52 OBGyn Episode No OBEpisode recorded.
--- OUTSIDE RECORDS SUMMARY | 2024-12-10 20:54 | XMS_ITS | Encounter Summary ---
Author Organization [employer] ([place], [place], [place], [place]) Address [address] [place] [address] Care Team Providers Care Direct Sales Professional Name Role Phone Jessie Fine MD Unavailable [phone] Encounter Details Date Type Department Care Team (Late st Contact Info) Description 10/14/2022 Telephone [facility] - [address] [place] [address] [place], [place] Social History Tobacco Use Types Packs/Day Years [...] on filedocumented in this encounter Care Teams Direct Sales Professional Relationship Specialty Start Date End Date Jessie Fine MD [address] [facility] [address] [place] [address] Referring Physician Hematology and Oncology 10/16/22 documented as of this encounter
--- OUTSIDE RECORDS SUMMARY | 2024-12-10 20:54 | XMS_ITS | Referral Summary ---
Author Organization [employer] ([place], [place], [place], [place]) Address [address] [place] [address] Care Team Providers Care Proof Operator Name Role Phone Jessie Fine MD Unavailable [phone] Allergies Active Allergy Reactions Criticality Noted [...] Date Kt rded Speak language other than Dutch at home Not on file 06/16/2023 Want [...] on file Insurance MEDICARE [place] [address] [place] [address] Care Teams Proof Operator Relationship Specialty Start Date End Date Jessie Fine MD [address] [place] [address] Referring Physician Hematology and Oncology 10/16/22
--- OUTSIDE RECORDS SUMMARY | 2024-12-10 20:54 | XMS_ITS | Clinical Summary ---
Author Organization [employer] ([place], [place], [place], [place]) Address [address] [place] [address] Care Team Providers Care Engineering Officer Name Role Phone Jessie Fine MD Unavailable [phone] Allergies Active Allergy Reactions Criticality Noted [...] Date Kt rded Speak language other than Serbian at home Not on file 06/16/2023 Want [...] COVID-19 VACCINE (3 - season) 02/06/202407/2020, 08/15/2020 Falls Risk Screening 06/07/2024 Influenza Vaccine (#1) 2025 04/14/2019, 2018 Pneumococcal 50+ years Completed 04/07/2016, 2014 Insurance MEDICARE PART A B Care Teams Engineering Officer Relationship Specialty Start Date End Date Jessie Fine MD [address] [address] Referring Physician Hematology and Oncology 10/16/22
--- NOTE | 2024-12-10 20:59 | ECG_ITS ---
APPROVED REPORT Exam: Resting ECG HR:68 bpm ECG Measurements Heart Rate 68 AXES WY 176 P 58 QRSd 97 QRS -65 QT 430 T 46 QTc 447 Conclusion SINUS RHYTHM PATTERN CONSISTENT WITH PULMONARY DISEASE LEFT ANTERIOR FASCICULAR BLOCK [QRS AXIS <= -45, QR IN I, RS IN II] ABNORMAL ECG Electronically signed by : PHI CORDOVA, 12/12/2024 08:39:57
--- NOTE | 2024-12-10 20:59 | XR_ITS ---
PROCEDURE INFORMATION: Exam: XR Chest Exam date and time: 12/10/2024 9:27 PM Age: 74 years old Clinical indication: Other: Dizziness TECHNIQUE: Imaging protocol: Radiologic exam of the chest. Views: 1 view. COMPARISON: CT ANGIO CHEST PE PROTOCOL 12/02/2024 9:14 PM FINDINGS: Lungs: Bilateral interstitial and airspace opacities. Pleural spaces: Unremarkable. No pleural effusion. No pneumothorax. Heart/Mediastinum: Unremarkable. No cardiomegaly. Bones/joints: Unremarkable. IMPRESSION: Bilateral interstitial and airspace opacities. Suspicious for pulmonary edema versus pneumonia. Correlate clinically.
--- NOTE | 2024-12-10 21:03 | HMH.EDGENADL ---
Discharge Plan Disposition Patient Disposition: Home, Self-Care Prescriptions Prescriptions: New amoxicillin-pot clavulanate 875-125 mg tablet 1 tab PO BID Qty: 20 0RF azithromycin 500 mg tablet 250 mg PO ONCE Qty: 6 0RF Rx Instructions: For 250 mg dose pack: take 500 mg today (day 1), then 250 mg for 4 days (days 2-5) No Action losartan 100 mg tablet 100 mg PO DAILY fluoxetine 40 mg capsule 40 mg PO DAILY Patient Comments: TAKE 1 CAPSULE BY MOUTH EVERY DAY IN THE MORNING insulin degludec [Tresiba FlexTouch U-200] 200 unit/mL (3 mL) insulin pen 30 unit SQ HS Patient Comments: TAKE 30 UNITS SUBCUTANEOUSLY EVERY NIGHT AT BEDTIME hydroxyzine pamoate 25 mg capsule 50 mg PO Q6HP PRN (Reason: Anxiety) Patient Comments: TAKE 1-2 CAPSULES (25-50 MG) BY MOUTH EVERY 6 HOURS NEEDED FOR ANXIETY OR INSOMNIA meclizine 25 mg tablet 25 mg PO TIDP PRN (Reason: Dizziness Or Vertigo) Patient Comments: TAKE ONE TABLET BY MOUTH THREE TIMES DAILY NEEDED for vertigo albuterol sulfate 90 mcg/actuation HFA aerosol inhaler 2 inh inhalation Q6H PRN (Reason: shortness of breath or wheezing) 90 Days Qty: 8.5 2RF simvastatin 20 MG tablet 20 mg PO HS montelukast 10 MG tablet 10 mg PO PM levothyroxine 150 mcg tablet 150 mcg PO DAILYDM Patient Comments: TAKE 1 TABLET BY MOUTH EVERY DAY IN THE MORNING lamotrigine 200 mg tablet 200 mg PO AM Patient Comments: TAKE 1 TABLET EVERY DAY BY ORAL ROUTE IN THE MORNING. bupropion HCl 150 mg tablet sustained-release 12 hr 150 mg PO DAILY Patient Comments: TAKE ONE TABLET BY MOUTH EVERY MORNING metoprolol tartrate 25 mg tablet 25 mg PO DAILY Patient Comments: TAKE 1 TABLET BY MOUTH EVERY DAY fluticasone propion-salmeterol [Wixela Inhub] 250-50 mcg/dose blister with device 1 inh inhalation BIDRT ondansetron 4 mg tablet,disintegrating 4 mg PO Q8HP PRN (Reason: nausea and vomiting) levofloxacin 750 mg tablet 750 mg PO DAILY Qty: 3 0RF spironolactone 25 mg Tablet 25 mg PO DAILY 30 Days Qty: 30 0RF furosemide [Lasix] 40 mg tablet 40 mg PO DAILY PRN (Reason: Leg edema) Qty: 30 0RF aspirin 81 mg Capsule 81 mg PO DAILY Hair, Skin and Nails (biotin) 10,000 mcg Tablet,Chewable 10,000 mcg PO DAILY Centrum Adults 12 mcg Tablet,Chewable 1 tab PO DAILY Referrals Follow up/Referrals: Provider,Referral, MD [Primary Care Provider, Medical] - See instructions Activity Restrictions/Add. Instructions Additional Instructions/Restrictions: You are being prescribed 2 antibiotics to treat your pneumonia. Take these as prescribed. Continue to work with physical therapy to help build up your strength. If you develop any new or worsening symptoms, or if you become concerned for your health for any reason, return to the emergency department for evaluation Clinical Impressions Clinical Impression: Multifocal pneumonia, Dizziness Print Language Print Language: Yi Discharge ED Provider: Darien Link General Adult HPI General Chief complaint: Fall Stated complaint: fall Time Seen by Provider: 12/10/24 20:52 Mode of Arrival: EMS Source of Information: Patient and EMS Description of Symptoms (Recalled from ER Triage Doc. by RN): PT sent to ED from [facility], for evaluation of a fall at 1652. PT stated she was putting something in the window and just fell. PT stated she had had a hx of vertigo, and has had it for 3 days now. PT stated she did not hit her head. Not on blood thinners. PT has bilateral abrasions to knees, bandages from [facility] facility were in place. History of Present Illness HPI narrative: Sweetie Hidalgo is a 74F with a history of vertigo, diabetes, hypothyroidism who presents to the emergency department for complaints of vertigo. She states that she is on meclizine for vertigo and over the last 3 days has had worsening dizzy spells. She states that today, she had a dizzy spell while standing up and fell backwards onto the bed. She then was able to get herself to a standing position. She denies hitting her head or losing consciousness. She denies any chest pain or worsening shortness of breath. She denies any recent fevers. She states that she was recently treated for pneumonia. She denies any urinary symptoms or abdominal pain. Related Data Home Medications ?Medication ?Instructions ?Recorded ?Confirmed montelukast 10 mg tablet 10 mg PO PM 11/16/18 12/03/24 simvastatin 20 mg tablet 20 mg PO HS 11/16/18 12/03/24 losartan 100 mg tablet 100 mg PO DAILY 02/17/23 12/03/24 lamotrigine 200 mg tablet 200 mg PO AM 04/25/24 12/03/24 levothyroxine 150 mcg tablet 150 mcg PO DAILYDM 04/25/24 12/03/24 aspirin 81 mg capsule 81 mg PO DAILY 05/21/24 12/03/24 biotin 10,000 mcg chewable tablet 10,000 mcg PO DAILY Supplement 05/21/24 12/03/24 (Hair, Skin and Nails (biotin)) multivitamin with minerals-folic 1 tab PO DAILY Supplement 05/21/24 12/03/24 acid 12 mcg chewable tablet (Centrum Adults) fluoxetine 40 mg capsule 40 mg PO DAILY 08/07/24 12/03/24 hydroxyzine pamoate 25 mg capsule 50 mg PO Q6HP PRN Anxiety 08/07/24 12/03/24 insulin degludec 200 unit/mL (3 30 unit SQ HS 08/07/24 12/03/24 mL) subcutaneous pen (Tresiba FlexTouch U-200 insulin) meclizine 25 mg tablet 25 mg PO TIDP PRN Dizziness Or 08/07/24 12/03/24 Vertigo bupropion HCl 150 mg tablet,12 hr 150 mg PO DAILY 12/03/24 12/03/24 sustained-release fluticasone 250 mcg-salmeterol 50 1 inh inhalation BIDRT 12/03/24 12/03/24 mcg/dose blistr powdr for inhalation (Sanjiv Inhub) metoprolol tartrate 25 mg tablet 25 mg PO DAILY 12/03/24 12/03/24 ondansetron 4 mg disintegrating 4 mg PO Q8HP PRN nausea and 12/03/24 12/03/24 tablet vomiting Previous Rx's ?Medication ?Instructions ?Recorded furosemide 40 mg tablet (Lasix) 40 mg PO DAILY PRN Leg edema #30 05/09/24 tabs spironolactone 25 mg tablet 25 mg PO DAILY 30 days #30 tabs 05/09/24 albuterol sulfate 90 mcg/actuation 2 inh inhalation Q6H PRN shortness 11/15/24 aerosol inhaler of breath or wheezing 90 days #8.5 grams levofloxacin 750 mg tablet 750 mg PO DAILY #3 tabs 12/05/24 amoxicillin 875 mg-potassium 1 tab PO BID #20 tabs 12/10/24 clavulanate 125 mg tablet azithromycin 500 mg tablet 250 mg (1/2 x 500 mg) PO ONCE #6 12/10/24 tabs Allergies Allergy/AdvReac Type Severity Reaction Status Date / Time No Known Allergies Allergy Verified 08/07/24 14:21 [facility] Disclaimer: The information contained in this section may have been updated after the patient was seen, as this information can be updated by other users. Medical History (Updated 12/10/24 @ 23:10 by Darien Link MD) Acute and chronic respiratory failure with hypoxia History of smoking 10-25 pack years ILD (interstitial lung disease) Asthma Vertigo Dizziness Acute UTI Asthma exacerbation Anxiety Bipolar 1 disorder Hypertension History of mastoiditis Vertigo Diabetes Postsurgical fever Hypothyroidism Surgical History History of tubal ligation History of colonoscopy History of cholecystectomy Family History Other COPD (chronic obstructive pulmonary disease) Cancer Hypertension Thyroid disorder Social History (Updated 12/03/24 @ 00:17 by Vijaya Downs RN) Smoking Status: Never smoker years smoked: 14 smoking status stop date: 1993 second hand exposure: Yes alcohol intake: never substance use type: marijuana current occupational status: retired Travel in the last 8 weeks?: None household members: none housing: house 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 current occupational exposures/hazards: No caffeine: Yes Have you lived/traveled outside US in past 30 days?: No Contact w/someone who lives/traveled outside US past 30 days?: No Exposure to someone with infectious disease in past 14 days?: No Do you have a fever (greater than 100.4 F or 38 C)?: No Have you tested positive for COVID-19?: No Exposed to someone with COVID-19 in past 14 days?: No Do you have a sore throat?: No Do you have a cough?: No Do you have any weakness?: No Do you have any diarrhea?: No Are you experiencing any unusual bleeding?: No Do you have any muscle aches/pain?: No Do you have any abdominal pain?: No Are you experiencing loss of taste or smell?: No Other Medical History Have you received the Flu Vaccine for this season: No Have you received the Pneumonia Vaccine: No ROS Obtained: Yes Systems reviewed as appropriate & no additional complaints except as documented Physical Exam General General appearance: alert and in no apparent distress Head Head exam: atraumatic and normocephalic Eye Eye exam: Present normal appearance, PERRL and EOMI ENT ENT exam: Present normal external ear exam Neck Neck exam: Present full ROM Chest Chest inspection: Present symmetric chest wall rise Respiratory Respiratory exam: Present normal lung sounds bilaterally; Absent respiratory distress, wheezes or stridor Cardiovascular Cardiovascular exam: Present regular rate and normal rhythm Abdominal Exam Abdominal exam: Present soft; Absent tenderness or guarding Extremities Exam Extremities exam: Present normal inspection Back Exam Back exam: Present normal inspection Neurological Exam Neurological exam: Present alert, oriented X3, CN II-XII intact and motor sensory deficit Psychiatric Psychiatric exam: Present normal affect and normal mood Skin Skin exam: Present warm and dry Medical Decision Making Medical Records Screening: Per USPSTF and CDC recommendations, given the prevalence of disease in our region, it is our hospital?s policy to screen for HIV and viral Hepatitis for all patients aged 18 and over and those with ongoing risk factors. Binu Inquiry Pt receiving controlled substance: No Vital Signs: 12/10/24 20:48 12/10/24 23:27 12/10/24 23:30 Temperature 97.8 F Temperature Source Oral Pulse Rate 69 69 Pulse Rate [Right] 82 Respiratory Rate 16 12 11 L Blood Pressure 185/81 H 171/89 H Blood Pressure [Right Arm] 190/83 H Blood Pressure Mean 108 113 Blood Pressure Mean [Right Arm] 118 Blood Pressure Source 02 Sat by Pulse Oximetry 100 92 L 92 L Oxygen Delivery Method Room Air 12/11/24 00:00 12/11/24 00:30 12/11/24 00:43 Temperature 97.8 F Temperature Source Oral Pulse Rate 60 65 66 Pulse Rate [Right] Respiratory Rate 23 18 16 Blood Pressure 168/82 H 176/82 H 176/82 H Blood Pressure [Right Arm] Blood Pressure Mean 110 113 Blood Pressure Mean [Right Arm] Blood Pressure Source Automatic Cuff 02 Sat by Pulse Oximetry 91 L 91 L Oxygen Delivery Method Room Air Lab Data Lab Results 12/10/24 21:14: Urine Color Yellow, Urine Appearance Clear, Urine pH 6.5, Ur Specific [place] 1.010, Urine Protein Negative, Urine Glucose (UA) Negative, Urine Ketones Negative, Urine Blood Negative, Urine Nitrate Negative, Urine Bilirubin Negative, Urine Urobilinogen 0.2, Ur Leukocyte Esterase 1+ A, Urine RBC None, Urine WBC 3-5, Ur Squamous Epith Cells Occasional, Urine Bacteria 1+ 12/10/24 21:37: WBC 8.4, RBC 3.76 L, Hgb 11.5 L, Hct 33.6 L, MCV 89.4, MCH 30.6, MCHC 34.2, RDW 12.8, Plt Count 217, MPV 7.9, Neut % (Auto) 62.9, Lymph % (Auto) 23.8, Gates % (Auto) 7.8, Eos % (Auto) 3.6, Baso % (Auto) 0.7, Neut # (Auto) 5.3, Lymph # (Auto) 2.0, Gates # (Auto) 0.7, Eos # (Auto) 0.3, Baso # (Auto) 0.1, Sodium 138, Potassium 4.1, Chloride 96 L, Carbon Dioxide 31 H, Anion Gap 15.1 H, BUN 12, Creatinine 0.80, Estimated Creat Clear 56, Estimated GFR 70, Est GFR ( Amer) 84, Glucose 209 H, Calcium 9.4, Total Bilirubin 0.4, AST 25, ALT 15, Alkaline Phosphatase 70, Troponin I < 0.01, NT-Pro-B Natriuret Pep 678 H, Total Protein 6.9, Albumin 3.8, Globulin 3.1, Albumin/Globulin Ratio 1.2, TSH 1.27 12/10/24 21:37 12/10/24 21:37 Orders (Tests/Meds): ORDERS Category Date Time Status CXR --portable [XR chest portable] Stat Exams 12/10/24 20:59 Completed BNP [NT Pro Brain Natriuretic Pep.] Stat Lab 12/10/24 21:37 Completed CBC w/Auto Diff [Complete Blood Count Auto Diff] Stat Lab 12/10/24 21:37 Completed CMP [Comprehensive Metabolic Panel] Stat Lab 12/10/24 21:37 Completed TSH [Thyroid Stimulating Hormone] Stat Lab 12/10/24 21:37 Completed Troponin I Stat Lab 12/10/24 21:37 Completed UA [Urinalysis and Microscopic] Stat Lab 12/10/24 21:14 Completed Urine Culture Stat Micro 12/10/24 21:14 Received EKG Request [ECG Request] Stat Y 12/10/24 20:59 Ordered Medical Decision Narrative: Sweetie Hidalgo is a 74F with a history of vertigo, diabetes, hypothyroidism who presents to the emergency department for complaints of vertigo. She states that she is on meclizine for vertigo and over the last 3 days has had worsening dizzy spells. She states that today, she had a dizzy spell while standing up and fell backwards onto the bed. She then was able to get herself to a standing position. She denies hitting her head or losing consciousness. She denies any chest pain or worsening shortness of breath. She denies any recent fevers. She states that she was recently treated for pneumonia. She denies any urinary symptoms or abdominal pain. On arrival, patient is hypertensive, Oxygen saturation at 100% SpO2 on room air. but heart rate within normal limits, afebrile. Physical exam, stated above, revealed an overall well-appearing female in no distress. Pupils equal round reactive to light. GCS 15. No focal neurological deficits. Cranial nerves intact. No nystagmus. Cardiopulmonary exam is unremarkable. Abdomen is soft, nontender nondistended. Differential diagnosis includes, but is not limited to: BPPV, cardiac arrhythmia, electrolyte derangement, metabolic derangement, pneumonia, UTI, anemia, low concern for stroke etiology as this has been a longstanding problem for the patient and she is back to her baseline without abnormal neurological exam. Workup in the emergency department included: EKG, CBC, CMP, troponin, BNP, TSH, urinalysis, chest x-ray. Laboratory studies interpreted by me personally. No leukocytosis. Hemoglobin stable. CMP grossly unremarkable without CANDIDO or electrolyte derangement, glucose of 209. Initial troponin less than 0.01. BNP mildly elevated at 678. TSH normal at 1.27. Urinalysis without evidence of infection. EKG interpreted by me personally. Normal sinus rhythm with a ventricular rate of [address] elevation or depression. QTc normal at 447. On reassessment, patient remained stable condition. She had no recurrence of her symptoms here in the emergency department. Given patient did not hit her head and has no strokelike symptoms, there is no indication for CT head or CTAs of the head or neck, although this was considered. At this time, is felt the patient is appropriate for discharge and recommended she continue taking her meclizine as well as continuing with physical therapy to help build her strength. Return precautions were given. All questions were answered. She demonstrated understanding and was agreement this plan. She was then discharged from the emergency department in stable condition. Critical Care Critical Care Time Critical Care Time: No
[2024-12-10 21:23] LABS: Microscopic, Urine URINE MICROSCOPIC (MICROSCOPIC)
[2024-12-10 21:36] LABS: Bilirubin,Urine Negative (Negative); Color,Urine YELLOW (Yellow); Glucose,Urine (UA) Negative (Negative); Ketones,Urine Negative (Negative); Leukocyte Esterase,Urine 1+ (Negative); PH,Urine 6.5 (5.0-8.5); Protein,Urine Negative (Negative); Specific Gravity, Urine 1.010 (1.005-1.030); Urobilinogen,Urine 0.2 EU/dl (0.2)
[2024-12-10 21:44] LABS: Hematocrit 33.6 % (37.0-47.0); Hemoglobin 11.5 g/dL (12.2-16.2); Immature Granulocytes % 1.2 %; Mean Corpuscular HGB Conc 34.2 g/dL (31.8-35.4); Mean Corpuscular Hemoglobin 30.6 pg (27.0-31.2); Mean Corpuscular Volume 89.4 fl (81-99); Nucleated Red Blood Cells % 0 %; Platelet Count 217 K/mm3 (142-424); Red Blood Count 3.76 M/mm3 (4.20-5.40); Red Cell Distribution Width-SD 41.7 fL; White Blood Count 8.4 K/mm3 (4.8-10.8)
[2024-12-10 21:53] LABS: Alanine Aminotransferase 15 U/L (12-78); Albumin Level 3.8 g/dl (3.5-5.0); Albumin/Globulin Ratio 1.2 (1.1-1.8); Alkaline Phosphatase 70 U/L (38-126); Anion Gap 15.1 mEq/L (5-15); Aspartate Amino Transferase 25 U/L (14-36); Bilirubin,Total 0.4 mg/dl (0.2-1.3); Blood Urea Nitrogen 12 mg/dl (7-17); Calcium 9.4 mg/dl (8.4-10.2); Carbon Dioxide 31 mmol/L (22.0-30.0); Chloride 96 mmol/L (98-107); Creatinine Clearance Estimated 56 mL/min (50-200); Creatinine,Serum 0.80 mg/dl (0.52-1.04); Estimated Glomerular Filt Rate 70 ml/min (>60); GFR (African American) 84 ML/MIN (>60); Globulin 3.1 g/dL (1.3-3.2); Glucose 209 mg/dl (74-100); Potassium 4.1 mmoL/L (3.5-5.1); Sodium 138 mmol/L (136-145); Total Protein,Serum 6.9 g/dl (6.3-8.2)
[2024-12-10 21:54] LABS: Bacteria,Urine 1+ /lpf; Squamous Epithelial Cell,Urine Occasional #/hpf (0-5)
[2024-12-10 22:04] LABS: NT Pro Brain Natriuretic Pep. 678 pg/mL (0-450)
[2024-12-10 22:09] LABS: Troponin I < 0.01 ng/ml (0.00-0.034)
[2024-12-10 22:24] LABS: Thyroid Stimulating Hormone 1.27 uIU/mL (0.465-4.68)
[2024-12-10 23:27] VITALS: BP 185/81; PULSE 69; RESP 12; O2SAT 92
[2024-12-10 23:30] VITALS: BP 171/89; PULSE 69; RESP 11; O2SAT 92
--- NOTE | 2024-12-10 23:30 | PC.NURSE ---
Report called to KATRINA Bernard at [facility].
[2024-12-11] VITALS: BP 168/82; PULSE 60; RESP 23; O2SAT 91
[2024-12-11 00:30] VITALS: BP 176/82; PULSE 65; RESP 18; O2SAT 91
[2024-12-11 00:43] VITALS: BP 176/82; PULSE 66; RESP 16; TEMP 36.6; O2SAT 95
== END 2024-12-11 00:46 | disposition home or self-care (01) ==
PROVIDERS: Emergency Provider Student in an Organized Health Care Education/Training Program
DX: J18.8 Other pneumonia, unspecified organism (principal); R42 Dizziness and giddiness; W01.0XXA Fall on same level from slipping, tripping and stumbling without subsequent striking against object, initial encounter; J45.909 Unspecified asthma, uncomplicated; E78.5 Hyperlipidemia, unspecified; E03.9 Hypothyroidism, unspecified; E11.9 Type 2 diabetes mellitus without complications
CPT/HCPCS: 71045; 80053; 81001; 83880; 84443; 84484; 85025; 87086; 93005; 99285

== ENCOUNTER 2025-04-09 07:31 | Emergency (ER) | payer MEDICARE, SELFPAY ==
[2025-04-09 07:40] VITALS: BP 174/80; PULSE 72; RESP 16; TEMP 36.7; O2SAT 95; BMI 26.4
[2025-04-09 07:45] VITALS: BP 135/75; RESP 15
--- OUTSIDE RECORDS SUMMARY | 2025-04-09 07:54 | XMS_ITS | Referral Summary ---
Author Organization [employer] ([place], [place], [place], [place], [place]) Address [address] [place] [address] Care Team Providers Care Broadcast Journalist Name Role Phone Jessie Fine MD Unavailable [phone] Allergies Active Allergy Reactions Criticality Noted [...] Date Kt rded Speak language other than Chadian at home Not on file 06/16/2023 Want [...] on file Insurance MEDICARE PART A B [facility] Care Teams Broadcast Journalist Relationship Specialty Start Date End Date Jessie Fine MD [address] [place] [address] Referring Physician Hematology and Oncology 10/16/22
--- OUTSIDE RECORDS SUMMARY | 2025-04-09 07:54 | XMS_ITS | Encounter Summary ---
Author Organization [employer] ([place], [place], [place], [place], [place]) Address [address] [place] [address] Care Team Providers Care Wastewater Treatment Plant Instructor Name Role Phone Jessie Fine MD Unavailable [phone] Encounter Details Date Type Department Care Team (Late st Contact Info) Description 10/14/2022 Telephone [facility] - [address] [place] [address] [place], [place] Social History Tobacco Use Types Packs/Day [...] on filedocumented in this encounter Care Teams Wastewater Treatment Plant Instructor Relationship Specialty Start Date End Date Jessie Fine MD [address] [facility] [address] [place] [address] Referring Physician Hematology and Oncology 10/16/22 documented as of this encounter
--- OUTSIDE RECORDS SUMMARY | 2025-04-09 07:54 | XMS_ITS | Clinical Summary ---
Author Organization [employer] ([place], [place], [place], [place], [place]) Address [address] [place] [address] Care Team Providers Care Division Controller Name Role Phone Jessie Fine MD Unavailable [phone] Allergies Active Allergy Reactions Criticality Noted [...] Cessation Counseling and Screening (12+) 06/23/2023 06/23/2022 Falls Risk Screening 06/07/2024 COVID-19 VACCINE ( - season) 02/05/202507/2020, 08/15/2020 Influenza Vaccine (#1) 2025 04/14/2019, 2018 Pneumococcal 50+ years Completed 04/07/2016, 2014 Insurance MEDICARE PART A B Care Teams Division Controller Relationship Specialty Start Date End Date Jessie Fine MD [address] [address] Referring Physician Hematology and Oncology 10/16/22
--- OUTSIDE RECORDS SUMMARY | 2025-04-09 07:54 | XMS_ITS | Clinical Summary ---
Author Organization [facility] Address [facility] [place] [address] Phone Care Team Providers Care Laundry Clerk Name Role Phone Unavailable Primary Care Provider Unavailabl e Encounters Date Type Department Care Team Description 04/09/2025 1:00 PM EST Hospital Encounter Mobile Mammography Other Location View online schedule for mobile van location [phone] Radha Tapia APRN from Last 3 Months Social History Tobacco Use Types Packs/Day Years Used Date Smoking Tobacco: Never Assessed Comments Unknown Sex and Gender Information Value Date Recorded Sex Assigned at Not on file Legal Sex Female 9:50 AM EDT Gender Identity Not on file Sexual Orientation Not on file Plan of Treatment Upcoming Encounters Date Type Department Care Team (Late st Contact Info) Description 04/09/2025 1:00 PM EST Hospital Encounter Mobile Mammography Other Location View online schedule for mobile van location [phone] Radha Tapia, [place] [address] [place] [address] Health Maintenance Due Date Last Done Comments Annual Wellness Exam 01/16/1953 Hepatitis C Screening 01/16/1966 DTaP/TDaP/Td (1 - Tdap) 01/16/1967 Pneumococcal Vaccine 50+ (1 of 1 - PCV) 01/16/1998 Zoster (1 of 2) 01/16/1998 Bone Density Screening 01/16/2013 RSV or 60+ (1 - 1-d ose 75+ series) 01/16/2023 COVID-19 Vaccine ( - 2024-2 6 season) 2025 Influenza Vaccine (#1) 2025 Hepatitis B Vaccine Aged Out No longe r eligible based on patient's age to complete this topic Meningococcal B Vaccine Aged Out No l onger eligible based on patient's age to complete this topic
--- OUTSIDE RECORDS SUMMARY | 2025-04-09 07:54 | XMS_ITS | Data Portability ---
Author Organization [facility], [address] [place] [address] Address [address] [place] [address] Care Team Providers Care Life Science Technical Officer Name Role Phone FRANK DAVIS Primary Care Provider [phone] Assessment Encounter Date Assessment Date Assessment LastModified [...] symptoms recur or if new symptoms arise. [email or web address] Not available 10/13/2016 22:54:56 Plan of Treatment Reminders Order Date Submit Date Provider Last Modified By Organization Details Last Modified Time Details Appointments None recorded. Lab CK (creatine kinase), total, serum 2018 019 [facility], [address] [place] [address], [id number], 9 11:29:04 C reactive protein, QN, serum or plasma 2018 019 [facility], [address] [place] [address], [id number], 9 11:29:06 ESR (erythrocyt e sedimentati on rate), blood 2018 019 [facility], [address] [place] [address], [id number], 9 12:49:03 PRISCILLA (antinuclea r antibodies) panel, serum 2018 019 [facility], [address] [place] [address], [id number], 9 15:01:11 CBC w/ auto diff 2016 017 [facility], [address] [place] [address], [address], 7 15:22:16 CMP, serum or plasma 2016 017 [facility], [address] [place] [address], [address], 7 15:19:54 TSH, serum or plasma 2016 017 [facility], [address] [place] [address], [address], 7 15:29:53 T4, free, serum 2016 017 [facility], [address] [place] [address], [address], 7 15:28:09 vitamin B1 (thiamine), blood 2016 017 [facility], [address] [place] [address], [address], 7 09:19:46 vitamin B12, serum 2016 017 [facility], [address] [place] [address], [address], 7 15:39:29 Referral None recorded. Procedures None recorded. Surgeries None recorded. Imaging XR, hip, bilateral, 2 view 2018 019 [facility], [address] [place] [address], [place], [address], 9 11:04:26 XR, knee, 3 view 2018 019 [facility], [address] [place], [address], 9 11:03:46 Medication Orders None recorded. Patient TargetsNo targets recorded. Patient Instructions Encounter Date Encounter Id Patient Instructions Last Modified By Organization Details Last Modified Time 04/17/2019 [id number] osteoarthritis: care instructions Not available 04/17/2019 10:28:04 06/05/2019 [id number] osteoarthritis: care instructions Not available 06/05/2019 15:55:19 Reason for Referral None Reported. Results Created Date Observation Date Name Description Value Unit Range Abnormal Flag Note LastModifiedBy Organization Detail LastModifiedTime 10/14/19 17 10/13/2016 CMP, serum or plasm a glucose 97 mg/dL 74-100 normal Not Available [facility] [address] [place] [address], [address], 10/13/2016 15:19:54 10/14/19 17 10/13/2016 CMP, serum or plasm a blood urea nitrogen 9 mg/dL 6-20 normal Not Available [facility] [address] [place] [address], [id number], 10/13/2016 15:19:54 10/14/19 17 10/13/2016 CMP, serum or plasm a creatinine 0.65 mg/dL 0.50-0 .95 normal Not Available [facility] [address] [place] [address], [address], 10/13/2016 15:19:54 10/14/19 17 10/13/2016 CMP, serum or plasm a BUN/creatini ne ratio 14 (calc ) 10-20 normal Not Available [facility] [address] [place] [address], [address], 10/13/2016 15:19:54 10/14/19 17 10/13/2016 CMP, serum or plasm a 105 >= 60 normal Not Available [facility] [address] [place] [address], [address], 10/13/2016 15:19:54 10/14/19 17 10/13/2016 CMP, serum [...] s or longe r. . Not Available [facility] [address] [place] [address], [address], 10/13/2016 15:19:54 10/14/19 17 10/13/2016 CMP, serum or plasm a sodium 139 mmol/ L 136-14 5 normal Not Available [facility] [address] [place] [address], [address], 10/13/2016 15:19:54 10/14/19 17 10/13/2016 CMP, serum or plasm a potassium 3.8 mmol/ L 3.4-5. 0 normal Not Available [facility] [address] [place] [address], [address], 10/13/2016 15:19:54 10/14/19 17 10/13/2016 CMP, serum or plasm a chloride 99 mmol/ L 98-107 normal Not Available [facility] [address] [place] [address], [address], 10/13/2016 15:19:54 10/14/19 17 10/13/2016 CMP, serum or plasm a carbon dioxide 27 mmol/ L 20-32 normal Not Available [facility] [address] [place] [address], [address], 10/13/2016 15:19:54 10/14/19 17 10/13/2016 CMP, serum or plasm a anion gap 13 (calc ) 7-19 normal Not Available [facility] [address] [place] [address], [address], 10/13/2016 15:19:54 10/14/19 17 10/13/2016 CMP, serum or plasm a calcium 9.1 mg/dL 8.6-10 .2 normal Not Available [facility] [address] [place] [address], [address], 10/13/2016 15:19:54 10/14/19 17 10/13/2016 CMP, serum or plasm a total protein 7.8 g/dL 6.4-8. 3 normal Not Available [facility] [address] [place] [address], [address], 10/13/2016 15:19:54 10/14/19 17 10/13/2016 CMP, serum or plasm a albumin 4.0 g/dL 3.5-5. 2 normal Not Available [facility] [address] [place] [address], [address], 10/13/2016 15:19:54 10/14/19 17 10/13/2016 CMP, serum or plasm a globulin 3.8 g/dL_ calc 1.5-4. 5 normal Not Available [facility] [address] [place] [address], [address], 10/13/2016 15:19:54 10/14/19 17 10/13/2016 CMP, serum or plasm a albumin/glob ulin ratio 1.1 calc 1.1-2. 5 normal Not Available [facility] [address] [place] [address], [address], 10/13/2016 15:19:54 10/14/19 17 10/13/2016 CMP, serum or plasm a bilirubin, total 0.3 mg/dL 0.1-1. 2 normal Not Available [facility] [address] [place] [address], [address], 10/13/2016 15:19:54 10/14/19 17 10/13/2016 CMP, serum or plasm a alkaline phosphatase 51 U/L 35-105 normal Not Available [facility] [address] [place] [address], [address], 10/13/2016 15:19:54 10/14/19 17 10/13/2016 CMP, serum or plasm a AST 17 U/L 0-32 normal Not Available [facility] [address] [place] [address], [address], 10/13/2016 15:19:54 10/14/19 17 10/13/2016 CMP, serum or plasm a ALT 11 U/L 0-33 normal Not Available [facility] [address] [place] [address], [address], 10/13/2016 15:19:54 10/14/19 17 10/13/2016 CBC w/ auto diff white blood cells 11.1 K/uL 3.8-10 .8 high Not Available [facility] [address] [place] [address], [address], 10/13/2016 15:22:16 10/14/19 17 10/13/2016 CBC w/ auto diff red blood cells 4.15 M/uL 3.80-5 .20 normal Not Available [facility] [address] [place] [address], [address], 10/13/2016 15:22:16 10/14/19 17 10/13/2016 CBC w/ auto diff hemoglobin 13.0 g/dL 12.0-1 6.0 normal Not Available [facility] [address] [place] [address], [address], 10/13/2016 15:22:16 10/14/19 17 10/13/2016 CBC w/ auto diff hematocrit 37.7 % 35.0-4 7.0 normal Not Available [facility] [address] [place] [address], [address], 10/13/2016 15:22:16 10/14/19 17 10/13/2016 CBC w/ auto diff MCV 91 fL 80-100 normal Not Available [facility] [address] [place] [address], [address], 10/13/2016 15:22:16 10/14/19 17 10/13/2016 CBC w/ auto diff MCH 31 pg 26-35 normal Not Available [facility] [address] [place] [address], [address], 10/13/2016 15:22:16 10/14/19 17 10/13/2016 CBC w/ auto diff MCHC 35 g/dL 32-36 normal Not Available [facility] [address] [place] [address], [address], 10/13/2016 15:22:16 10/14/19 17 10/13/2016 CBC w/ auto diff RDW 12.8 % 11.0-1 5.0 normal Not Available [facility] [address] [place] [address], [address], 10/13/2016 15:22:16 10/14/19 17 10/13/2016 CBC w/ auto diff MPV 7.2 fL 6.2-10 .5 normal Not Available [facility] [address] [place] [address], [address], 10/13/2016 15:22:16 10/14/19 17 10/13/2016 CBC w/ auto diff platelet count 216 K/uL 130-40 0 normal Not Available [facility] [address] [place] [address], [address], 10/13/2016 15:22:16 10/14/19 17 10/13/2016 CBC w/ auto diff neutrophil,a bsolute 5.3 K/uL 1.6-8. 4 normal Not Available [facility] [address] [place] [address], [address], 10/13/2016 15:22:16 10/14/19 17 10/13/2016 CBC w/ auto diff lymphocyte,a bsolute 4.2 K/uL 0.4-5. 1 normal Not Available [facility] [address] [place] [address], [address], 10/13/2016 15:22:16 10/14/19 17 10/13/2016 CBC w/ auto diff monocyte,abs olute 0.9 K/uL 0.0-1. 2 normal Not Available [facility] [address] [place] [address], [address], 10/13/2016 15:22:16 10/14/19 17 10/13/2016 CBC w/ auto diff eosinophil,a bsolute 0.6 K/uL 0.0-0. 8 normal Not Available [facility] [address] [place] [address], [address], 10/13/2016 15:22:16 10/14/19 17 10/13/2016 CBC w/ auto diff basophil,abs olute 0.1 K/uL 0.0-0. 3 normal Not Available [facility] [address] [place] [address], [address], 10/13/2016 15:22:16 10/14/19 17 10/13/2016 CBC w/ auto diff % neutrophils 48.0 % 42.0-7 8.0 normal Not Available [facility] [address] [place] [address], [address], 10/13/2016 15:22:16 10/14/19 17 10/13/2016 CBC w/ auto diff % lymphocytes 37.7 % 11.0-4 7.0 normal Not Available [facility] [address] [place] [address], [address], 10/13/2016 15:22:16 10/14/19 17 10/13/2016 CBC w/ auto diff % monocytes 8.4 % 0.0-11 .0 normal Not Available [facility] [address] [place] [address], [address], 10/13/2016 15:22:16 10/14/19 17 10/13/2016 CBC w/ auto diff % eosinophils 5.3 % 0.0-7. 0 normal Not Available [facility] [address] [place] [address], [address], 10/13/2016 15:22:16 10/14/19 17 10/13/2016 CBC w/ auto diff % basophils 0.6 % 0.0-3. 0 normal Not Available [facility] [address] [place] [address], [address], 10/13/2016 15:22:16 10/14/19 17 10/13/2016 CBC w/ auto diff nucleated red cells 0.0 % 0.0-0. 9 normal Not Available [facility] [address] [place] [address], [address], 10/13/2016 15:22:16 10/14/19 17 10/13/2016 CBC w/ auto diff nucleated RBCs, absolute 0.00 K/uL not estab. normal Not Available [facility] [address] [place] [address], [address], 10/13/2016 15:22:16 10/14/19 17 10/13/2016 T4, free, serum T4,free 1.22 NG/dL 0.93-1 .70 normal Not Available [facility] [address] [place] [address], [address], 10/13/2016 15:28:09 10/14/19 17 10/13/2016 TSH, serum or plasm a TSH 11.140 uIU/m L 0.290- 5.500 high Not Available [facility] [address] [place] [address], [address], 10/13/2016 15:29:53 10/14/19 17 10/13/2016 vitam in B12, serum vitamin B12 221 pg/mL 211-94 6 normal Not Available [facility] [address] [place], [address], 10/13/2016 15:39:29 10/14/19 17 10/17/2016 vitam in B1 (thia mine) , blood vitamin B1 159 nmol/ L 78-185 normal Vitam in suppl ement ation withi n 24 hours prior to blood draw may affec t the accur acy of [facility] ts. This test was devel oped and its mervat tical perfo rmanc e jerry cteri stics have been deter mined by [facility]. It has not been clear ed or appro young by FDA. This assay has been valid ated pursu ant to the CLIA regul ation s and is used for clini durga purpo ses. TEST PERFO RMED AT: [facility] [address] [place] [address] [facility] RADHA WILKINS MD ,FCAP Not Available [facility] [address] [place], [address], 10/17/2016 09:19:46 04/17/20 19 04/17/2019 CK (crea fariha kinas e), total , serum creatine kinase 32 U/L 0-169 normal Not Available [facility] [address] [place], [address], 04/17/2019 11:29:04 04/17/20 19 04/17/2019 C react danny prote in, QN, serum or plasm a C reactive protein 0.67 mg/dL 0.00-0 .50 high Jackie ntrat ions of < 1 mg/dL exclu de many acute infla mmato ry disea ses but do not speci fical ly exclu de infla mmato ry proce sses. Brandon kallie jackie ntrat ions of < 5 mg/dL in acute disea se occur in the prese nce of sligh t to moder ate infla mmato ry proce sses. Value s > 5 mg/dL indic ate high and exten sive infla mmato ry activ ity. Not Available [facility] [address] [place], [address], 04/17/2019 11:29:06 04/17/20 19 04/17/2019 ESR (eryt hrocy te sedim entat ion rate) , blood ESR, automated 20 mm/HR 0-29 normal Not Available [facility] [address] [place], [address], 04/17/2019 12:49:03 04/17/20 19 04/20/2019 PRISCILLA (anti [...] infor alden anderson e refer to http: //[facility] meet vazquez.Que stDia gnost ics.c om/fa q/FAQ 177 (This link is being provi ded for infor idris strickland/ educa peggy l purpo ses only. ) TEST PERFO RMED AT: [facility] [place] [address] [place] [address] YOJANA Baez MD Not Available [facility] [address] [place], [address], 04/20/2019 15:01:11 04/17/20 19 04/20/2019 PRISCILLA (anti nucle ar antib odies ) panel , serum PRISCILLA titer 1:80 titer high A low level PRISCILLA titer may be prese nt in pre-c linic al autoi mmune disea ses and jose l indiv idual s. Refer ence Range <1:40 Negat danny 1:40- 1:80 Low Antib flory Level >1:80 Brandon kallie Antib flory Level Not Available [facility] [address] [place] [address], [address], 04/20/2019 15:01:11 04/17/20 19 04/20/2019 PRISCILLA (anti [...] PRISCILLA Patte rns (http s://d oi.or g/10. 8895/ [facility]- 2017- 0052) TEST PERFO RMED AT: [facility] [place] [address] [facility] [place] [address] YOJANA Baez MD Not Available [facility] [address] [place] [address], [address], 04/20/2019 15:01:11 04/17/20 19 04/20/2019 PRISCILLA refle x testi ng C3 179 mg/dL 83-193 normal TEST PERFO RMED AT: [facility] [address] [facility] [place] [address] YOJANA Baez MD Not Available [facility] [address] [place] [address], [address], 04/20/2019 17:00:28 04/17/20 19 04/20/2019 PRISCILLA refle x testi ng C4 32 mg/dL 15-57 normal TEST PERFO RMED AT: [facility] [place] [facility] [address] [place] [address] YOJANA Baez MD Not Available [facility] [address] [place] [address], [address], 04/20/2019 17:00:28 04/17/20 19 04/20/2019 PRISCILLA refle x testi ng C3 179 mg/dL 83-193 normal TEST PERFO RMED AT: [facility] [address] [facility] [place] [place] [address] YOJANA Baez MD Not Available [facility] [address] [place] [address], [address], 04/21/2019 16:36:37 04/17/20 19 04/20/2019 PRISCILLA refle x testi ng C4 32 mg/dL 15-57 normal TEST PERFO RMED AT: [facility] [address] [place] [address] YOJANA Baez MD Not Available [facility] [address] [place] [address], [address], 04/21/2019 16:36:37 04/17/20 19 04/21/2019 PRISCILLA refle x testi ng sm antibody <1.0 NEG ai <1.0 neg normal Not Available [facility] [address] [place] [address], [address], 04/21/2019 16:36:37 04/17/20 19 04/21/2019 PRISCILLA refle x 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 ng 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 Ab <1.0 NEG ai <1.0 neg normal TEST PERFO RMED AT: [facility] [place] [facility] [address] [facility] [address] YOJANA Baez MD Not Available [facility] [address] [place] [address], [address], 04/21/2019 16:36:37 04/17/20 19 04/21/2019 PRISCILLA refle x testi ng ss-A Ab >8.0 POS ai <1.0 neg abnormal Not Available [facility] [address] [place] [address], [address], 04/21/2019 16:36:37 04/17/20 19 04/21/2019 PRISCILLA refle x testi ng ss-B Ab 1.0 POS ai <1.0 neg abnormal TEST PERFO RMED AT: [facility] [address] [facility] [place] [address] YOJANA Baez MD Not Available [facility] [address] [place] [address], [address], 04/21/2019 16:36:37 04/17/20 19 04/21/2019 PRISCILLA refle x testi ng scleroderma Ab <1.0 NEG ai <1.0 neg normal TEST PERFO RMED AT: [facility] [place] [address] [facility] [place] [address] YOJANA Baez MD Not Available [facility] [address] [place] [address], [address], 04/21/2019 16:36:37 04/17/20 19 04/20/2019 PRISCILLA refle x testi ng C3 179 mg/dL 83-193 normal TEST PERFO RMED AT: [facility] [place] [address] [facility] [place] [address] YOJANA Baez MD Not Available [facility] [address] [place] [address], [address], 04/22/2019 12:16:10 04/17/20 19 04/20/2019 PRISCILLA refle x testi ng C4 32 mg/dL 15-57 normal TEST PERFO RMED AT: [facility] [address] [facility] [place] [address] YOJANA Baez MD Not Available [facility] [address] [place] [address], [address], 04/22/2019 12:16:10 04/17/20 19 04/21/2019 PRISCILLA refle x testi ng sm antibody <1.0 NEG ai <1.0 neg normal Not Available [facility] [address] [place] [address], [address], 04/22/2019 12:16:10 04/17/20 19 04/21/2019 PRISCILLA refle x testi ng 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 Ab <1.0 NEG ai <1.0 neg normal TEST PERFO RMED AT: [facility] [address] [place] [address] YOJANA Baez MD Not Available [facility] [address] [place] [address], [address], 04/22/2019 12:16:10 04/17/20 19 04/21/2019 PRISCILLA refle x testi ng ss-A Ab >8.0 POS ai <1.0 neg abnormal Not Available [facility] [address] [place] [address], [address], 04/22/2019 12:16:10 04/17/20 19 04/21/2019 PRISCILLA refle x testi ng ss-B Ab 1.0 POS ai <1.0 neg abnormal TEST PERFO RMED AT: [facility] [address] [place] [address] YOJANA Baez MD Not Available [facility] [address] [place] [address], [address], 04/22/2019 12:16:10 04/17/20 19 04/21/2019 PRISCILLA refle x testi ng scleroderma Ab <1.0 NEG ai <1.0 neg normal TEST PERFO RMED AT: [facility] [address] [place] [address] YOJANA Baez MD Not Available [facility] [address] [place] [address], [address], 04/22/2019 12:16:10 04/17/20 19 04/22/2019 PRISCILLA refle x testi ng DNA (ds) Ab NEGATI VE negati ve normal TEST PERFO RMED AT: [facility] [place] [facility] [address] [place] [address] YOJANA Baez MD Not Available [facility] [address] [place] [address], [address], 04/22/2019 12:16:10 04/17/20 19 04/17/2019 XR, knee, [address] [place] [address] Patimichelle t Name: SWEETIE Nunez t : 89 Patimichelle t Orderi ng Provid er: [facility] EXAM DATE: 2018 EXAM: XR ELIZA KNEES [...] Isamar flores MD on 2018 10:58 AM [email or web address] [facility] [address] [place] [address], [address], 05/01/2019 12:10:41 04/17/20 19 04/17/2019 XR, hip, bilat eral, 2 view [place] [address] [facility] [place] [address] Patimichelle t Name: SWEETIE ayala : 89 Mayra t Orderi ng Provid er: [facility] EXAM DATE: 2018 EXAM: XR ELIZA HIPS, [...] Isamar flores MD on 2018 10:59 AM [email or web address] [facility] [address] [place] [address], [address], 05/01/2019 12:10:41 Result Notes Documentation Provider Name and Address Organization Details Recorded Time Xr, Knee, 3 View : [place] [address] Patient Name: SWEETIE MORELOS Patient : 1950 [...] By: Blayne Johnson MD A [facility] - [facility] 05/01/2019 12:10:41 Xr, Hip, Bilateral, 2 View : [address] [address] Patient Name: SWEETIE MORELOS Patient : 1950 [...] Interpreted By: Blayne Johnson MD Rhea Norris [facility] 05/01/2019 12:10:41 Problems Name Problem SNOMED Code Status Onset Date Resolution Date Notes Provider Name and Address Organization Details Recorded Time Transient memory loss Active 017 [facility] 7 13:26:33 Problem Notes None recorded. Procedures Surgical History Date Name Laterality Status Provider Name and Address Organization Details Recorded Time Other completed Ryley Orozco [facility] 10/13/2016 13:04:37 Imaging Results None [...] Details Last Updated DateTime 10/13/2016 170.18 cm 91081.63 g 28.2 kg/m2 120/78 mm[Hg] Bess Whiting [facility] 10/13/2016 13:10:44 Date Recorded Body height Body mass index (BMI) Body weight Heart rate Systolic And Diastolic Provider Name and Address Organization Details Last Updated DateTime 04/17/2019 170.18 cm 25.5 kg/m2 01247.56 g 63 /min 154/66 mm[Hg] Isaac Faye [facility] 04/17/2019 10:02:20 Date Recorded Body height Body mass index (BMI) Body weight Respiratory rate Heart rate Systolic And Diastolic Provider Name and Address Organization Details Last Updated DateTime 9 170.18 cm 25.8 kg/m2 34838.7 4 g 18 /min 68 /min 158/65 mm[Hg] Katie Ballard [facility] 9 15:48:33 Social History Question Answer Notes LastModified by Organizat ion Details LastModified Time Tobacco Smoking Status [facility] 10/13/2016 13:03:32 What Is Your Level Of Caffeine Consumption? Moderate [email or web address] Information not available 10/13/2016 How Much Tobacco Do You Chew? None [email or web address] Information not available 06/05/2019 Education 2 Year College [email or web address] Information not available 10/13/2016 Marital Status [email or web address] Informatio n not available 10/13/2016 What Was The Date Of Your Most Recent Tobacco Screening? 06/05/2019 [email or web address] Information not available 06/05/2019 How Much Tobacco Do You Smoke? No Information not available 04/17/2019 How Many Years Have You Smoked Tobacco? 0 [email or web address] Information not available 06/05/2019 Sex: Unknown Functional Status Question Answer Note LastModified by Organizat ion Details LastModified Time What is your level of alcohol consumption? Occasional [email or web address] Information not available 10/13/2016 Do you or have you ever used smokeless tobacco? 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 Never used electronic cigarettes [email or web address] Information not available 06/05/2019 Mental Status None recorded. Family History Relationship Description Onset Age of this Age Resolved Age Notes LastModified by Organization Details LastModified Time Mother Hypertensive disorder [email or web address] Not available 2016 13:02:18 Mother Family history of stroke [email or web address] Not available 2016 13:02:35 Mother Arthritis Not available 04/17/2019 10:00:31 Sister Hypertensive disorder [email or web address] Not available 2016 13:02:18 Sister Heart disease Not available 2016 13:02:28 Sister Diabetes mellitus [email or web address] Not available 2016 13:02:52 Sister Obesity [email or web address] Not available 10/13/2016 13:03:09 Sister Disorder of thyroid gland [email or web address] Not available 2016 13:03:17 Father Family history of malignant neoplasm [email or web address] Not available 2016 13:02:41 Brother Diabetes mellitus [email or web address] Not available 2016 13:02:52 Brother Obesity Not availabl e 10/13/2016 13:03:09 Medical History No medical history recorded. Gynecological HistoryNo gynecological history recorded. Obstetrics History GPAL:G 0 P 0 0 0 0 Immunizations Vaccine Type Date Status Note Provider Nam e and Address Organization Details Recorded Time Influenza, split virus, quadrivalent, preservative 9 completed [facility] 04/17/2019 10:00:05 Past Encounters Encounter ID Performer Location Encounter Start Date Encounter Closed Date Diagnosis/Indication Diagnosis SNOMED-CT Code Diagnosis ICD10 Code Diagnosis IMO Codes Diagnosis Note [id number] JONATHAN GARCIA MD NEUROLOGY JOSE CLOSED [address] [place] [address] 10/13/2016 12:56:25 10/13/2016 14:12:45 Visual hallucinations 05069333 R44.1 Amnesia 22187187 R41.3 Formed vis ual hallucinations 305906531 R44.1 Transient memory loss 30 6994256 R41.3 Cerebral atrophy 6429009 00 G31.9 [id number] MEÑO TERRI DEMPSEY MD RHEUMATOL OGY [address] [place] [address] 04/17/2019 09:43:59 04/18/2019 08:55:04 Generalized osteoarthritis 697455406 M15.9 69-year-ol d female with degenerati ve [...] after review of the x-rays. Muscle pain 77712946 M79 .10 she has had muscle pains [...] lab studies for any further discussion s. [id number] MEÑ[facility] [address] [place] [address] 06/05/2019 15:17:32 06/06/2019 09:57:40 Generalized osteoarthritis 561815158 M15.9 69-year-ol d female with degenerati ve [...] she agrees with the plan. Muscle pain 77349452 M79 .10 for details, please see my [...] Sooner if needed. 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 Sweetie Monurgey 06/06/2019 2 [employer] SUPPLEMENTAL - [employer] HE[employer] AND LIFE INSURANCE (MEDICARE SUPPLEMENT) PLAN G Sweetie Monurgey [id number] Sweetie Monurgey 06/05/2019 1 MEDICARE-ID (MEDICARE) Sweetie Monurgey [id number] Sweetie Monurgey 06/06/2019 2 [employer] (MEDICARE SUPPLEMENT) Sweetie Monurgey [id number] Sweetie Morelos Notes Date Note Type Note Provider Name and Address Organization Details Recorded Time 10/13/2016 text/html 66 year old woman from [place] CC hallucination/memor y loss She has some [...] of memory impairment JONATHAN GARCIA MD [address] [facility] [place], [address], [facility] 10/13/2016 22:55:39 04/17/2019 text/html ROS as noted in the HPI New patient. Seen for evaluation of elevated [...] tingling in her extremities. MEÑO DEMPSEY MD [facility] [place], [address], [facility] 04/17/2019 13:24:03 06/05/2019 text/html ROS as noted in the HPI follow-up for osteoarthritis, muscle pain and primary Sjogren's. Denies any acute complaints. In fact her muscle pains are significantly improved or resolved. She is now here to discuss her lab studies as well as the x-rays. MEÑO DEMPSEY MD [facility] [place], [address], [facility] 06/05/2019 16:08:52 OBGyn Episode No OBEpisode recorded.
[2025-04-09] MEDS: MECLIZINE 25MG TABLET 50 MG PO (07:57)
[2025-04-09] MEDS: ONDANSETRON 4MG/2ML VIAL 4 MG IV (07:57)
[2025-04-09 08:00] VITALS: BP 175/84; PULSE 63; RESP 16; O2SAT 96
[2025-04-09 08:01] LABS: Hematocrit 38.6 % (37.0-47.0); Hemoglobin 13.1 g/dL (12.2-16.2); Immature Granulocytes % 1.0 %; Mean Corpuscular HGB Conc 33.9 g/dL (31.8-35.4); Mean Corpuscular Hemoglobin 30.0 pg (27.0-31.2); Mean Corpuscular Volume 88.3 fl (81-99); Nucleated Red Blood Cells % 0 %; Platelet Count 170 K/mm3 (142-424); Red Blood Count 4.37 M/mm3 (4.20-5.40); Red Cell Distribution Width-SD 40.2 fL; White Blood Count 7.1 K/mm3 (4.8-10.8)
--- NOTE | 2025-04-09 08:01 | ECG_ITS ---
APPROVED REPORT Exam: Resting ECG HR:62 bpm ECG Measurements Heart Rate 62 AXES NV 204 P 72 QRSd 93 QRS -66 QT 342 T 71 QTc 347 Conclusion SINUS RHYTHM PATTERN CONSISTENT WITH PULMONARY DISEASE INCOMPLETE RIGHT BUNDLE BRANCH BLOCK [90+ ms QRS DURATION, TERMINAL R IN V1/V2, 40+ ms S IN I/aVL/V4/V5/V6] LEFT ANTERIOR FASCICULAR BLOCK [QRS AXIS <= -45, QR IN I, RS IN II] POSSIBLE SEPTAL MYOCARDIAL INFARCTION , PROBABLY OLD [30 ms Q WAVE IN V1/V2] No STEMI Electronically signed by : GUILLERMINA VALENCIA, 04/10/2025 05:19:04
[2025-04-09 08:10] LABS: Alanine Aminotransferase 18 U/L (12-78); Albumin Level 4.6 g/dl (3.5-5.0); Albumin/Globulin Ratio 1.4 (1.1-1.8); Alkaline Phosphatase 69 U/L (38-126); Anion Gap 11.9 mEq/L (5-15); Aspartate Amino Transferase 27 U/L (14-36); Bilirubin,Total 1.0 mg/dl (0.2-1.3); Blood Urea Nitrogen 16 mg/dl (7-17); Calcium 9.4 mg/dl (8.4-10.2); Carbon Dioxide 28 mmol/L (22.0-30.0); Chloride 98 mmol/L (98-107); Creatinine Clearance Estimated 57 mL/min (50-200); Creatinine,Serum 1.00 mg/dl (0.52-1.04); Estimated Glomerular Filt Rate 54 ml/min (>60); GFR (African American) 65 ML/MIN (>60); Globulin 3.2 g/dL (1.3-3.2); Glucose 177 mg/dl (74-100); Potassium 3.9 mmoL/L (3.5-5.1); Sodium 134 mmol/L (136-145); Total Protein,Serum 7.8 g/dl (6.3-8.2)
[2025-04-09 08:15] VITALS: BP 178/81; PULSE 66; RESP 17; O2SAT 96
[2025-04-09 08:30] VITALS: BP 163/84; PULSE 66; RESP 17; O2SAT 96
--- NOTE | 2025-04-09 08:37 | HMH.EDGENADL ---
Discharge Plan Disposition Patient Disposition: Home, Self-Care Condition: Good Prescriptions Prescriptions: New meclizine 25 mg tablet 50 mg PO DAILY PRN (Reason: motion sickness) Qty: 30 0RF No Action losartan 100 mg tablet 100 mg PO DAILY fluoxetine 40 mg capsule 40 mg PO DAILY Patient Comments: TAKE 1 CAPSULE BY MOUTH EVERY DAY IN THE MORNING insulin degludec [Tresiba FlexTouch U-200] 200 unit/mL (3 mL) insulin pen 30 unit SQ HS Patient Comments: TAKE 30 UNITS SUBCUTANEOUSLY EVERY NIGHT AT BEDTIME hydroxyzine pamoate 25 mg capsule 50 mg PO Q6HP PRN (Reason: Anxiety) Patient Comments: TAKE 1-2 CAPSULES (25-50 MG) BY MOUTH EVERY 6 HOURS NEEDED FOR ANXIETY OR INSOMNIA meclizine 25 mg tablet 25 mg PO TIDP PRN (Reason: Dizziness Or Vertigo) Patient Comments: TAKE ONE TABLET BY MOUTH THREE TIMES DAILY NEEDED for vertigo albuterol sulfate 90 mcg/actuation HFA aerosol inhaler 2 inh inhalation Q6H PRN (Reason: shortness of breath or wheezing) 90 Days Qty: 8.5 2RF simvastatin 20 MG tablet 20 mg PO HS montelukast 10 MG tablet 10 mg PO PM levothyroxine 150 mcg tablet 150 mcg PO DAILYDM Patient Comments: TAKE 1 TABLET BY MOUTH EVERY DAY IN THE MORNING lamotrigine 200 mg tablet 200 mg PO AM Patient Comments: TAKE 1 TABLET EVERY DAY BY ORAL ROUTE IN THE MORNING. bupropion HCl 150 mg tablet sustained-release 12 hr 150 mg PO DAILY Patient Comments: TAKE ONE TABLET BY MOUTH EVERY MORNING metoprolol tartrate 25 mg tablet 25 mg PO DAILY Patient Comments: TAKE 1 TABLET BY MOUTH EVERY DAY fluticasone propion-salmeterol [Wixela Inhub] 250-50 mcg/dose blister with device 1 inh inhalation BIDRT ondansetron 4 mg tablet,disintegrating 4 mg PO Q8HP PRN (Reason: nausea and vomiting) levofloxacin 750 mg tablet 750 mg PO DAILY Qty: 3 0RF amoxicillin-pot clavulanate 875-125 mg tablet 1 tab PO BID Qty: 20 0RF azithromycin 500 mg tablet 250 mg PO ONCE Qty: 6 0RF Rx Instructions: For 250 mg dose pack: take 500 mg today (day 1), then 250 mg for 4 days (days 2-5) spironolactone 25 mg Tablet 25 mg PO DAILY 30 Days Qty: 30 0RF furosemide [Lasix] 40 mg tablet 40 mg PO DAILY PRN (Reason: Leg edema) Qty: 30 0RF aspirin 81 mg Capsule 81 mg PO DAILY Hair, Skin and Nails (biotin) 10,000 mcg Tablet,Chewable 10,000 mcg PO DAILY Centrum Adults 12 mcg Tablet,Chewable 1 tab PO DAILY Referrals Follow up/Referrals: Radha Tapia [Primary Care Provider, Medical] - See instructions Clinical Impressions Clinical Impression: Vertigo Instructions Patient Instructions: DI for Vertigo Print Language Print Language: Kosovan Discharge ED Provider: Yovany Mayfield General Adult HPI General Chief complaint: Dizziness Stated complaint: nausea, dizziness, vertigo Time Seen by Provider: 04/09/25 07:34 Mode of Arrival: Wheelchair Source of Information: Patient Description of Symptoms (Recalled from ER Triage Doc. by RN): pt presents to ED with c/o nausea, dizziness. symptoms began last . pt reports that she has hx of vertigo. pt reports she has been taking meclizine at home, but no relief of symptoms. History of Present Illness HPI narrative: This patient is a 75-year-old female with past medical history of dementia and vertigo who presents to the emergency department with vertiginous symptoms. The patient reports that for the last 4 days she has had intermittent vertigo, it improves when she stops moving, it is worsened by ambulation. It is accompanied by mild stuffiness in the ears and symptoms of a viral infection including increased cough, increased nasal congestion. The patient has had the symptoms several times in the past, the past 3 episodes she has had full stroke workups including CT scans and MRIs which she reports to me were negative. In the exam room today the patient is comfortable, well-appearing, no obvious nystagmus. Related Data Home Medications ?Medication ?Instructions ?Recorded ?Confirmed montelukast 10 mg tablet 10 mg PO PM 11/16/18 12/03/24 simvastatin 20 mg tablet 20 mg PO HS 11/16/18 12/03/24 losartan 100 mg tablet 100 mg PO DAILY 02/17/23 12/03/24 lamotrigine 200 mg tablet 200 mg PO AM 04/25/24 12/03/24 levothyroxine 150 mcg tablet 150 mcg PO DAILYDM 04/25/24 12/03/24 aspirin 81 mg capsule 81 mg PO DAILY 05/21/24 12/03/24 biotin 10,000 mcg chewable tablet 10,000 mcg PO DAILY Supplement 05/21/24 12/03/24 (Hair, Skin and Nails (biotin)) multivitamin with minerals-folic 1 tab PO DAILY Supplement 05/21/24 12/03/24 acid 12 mcg chewable tablet (Centrum Adults) fluoxetine 40 mg capsule 40 mg PO DAILY 08/07/24 12/03/24 hydroxyzine pamoate 25 mg capsule 50 mg PO Q6HP PRN Anxiety 08/07/24 12/03/24 insulin degludec 200 unit/mL (3 30 unit SQ HS 08/07/24 12/03/24 mL) subcutaneous pen (Tresiba FlexTouch U-200 insulin) meclizine 25 mg tablet 25 mg PO TIDP PRN Dizziness Or 08/07/24 12/03/24 Vertigo bupropion HCl 150 mg tablet,12 hr 150 mg PO DAILY 12/03/24 12/03/24 sustained-release fluticasone 250 mcg-salmeterol 50 1 inh inhalation BIDRT 12/03/24 12/03/24 mcg/dose blistr powdr for inhalation (Wixela Inhub) metoprolol tartrate 25 mg tablet 25 mg PO DAILY 12/03/24 12/03/24 ondansetron 4 mg disintegrating 4 mg PO Q8HP PRN nausea and 12/03/24 12/03/24 tablet vomiting Previous Rx's ?Medication ?Instructions ?Recorded furosemide 40 mg tablet (Lasix) 40 mg PO DAILY PRN Leg edema #30 05/09/24 tabs spironolactone 25 mg tablet 25 mg PO DAILY 30 days #30 tabs 05/09/24 albuterol sulfate 90 mcg/actuation 2 inh inhalation Q6H PRN shortness 11/15/24 aerosol inhaler of breath or wheezing 90 days #8.5 grams levofloxacin 750 mg tablet 750 mg PO DAILY #3 tabs 12/05/24 amoxicillin 875 mg-potassium 1 tab PO BID #20 tabs 12/10/24 clavulanate 125 mg tablet azithromycin 500 mg tablet 250 mg (1/2 x 500 mg) PO ONCE #6 12/10/24 tabs meclizine 25 mg tablet 50 mg (2 x 25 mg) PO DAILY PRN 04/09/25 motion sickness #30 tabs Allergies Allergy/AdvReac Type Severity Reaction Status Date / Time No Known Allergies Allergy Verified 08/07/24 14:21 [facility] Disclaimer: The information contained in this section may have been updated after the patient was seen, as this information can be updated by other users. Medical History (Updated 04/09/25 @ 09:13 by Yovany Mayfield MD) Acute and chronic respiratory failure with hypoxia History of smoking 10-25 pack years ILD (interstitial lung disease) Asthma Vertigo Dizziness Acute UTI Asthma exacerbation Anxiety Bipolar 1 disorder Hypertension History of mastoiditis Vertigo Diabetes Postsurgical fever Hypothyroidism Surgical History History of tubal ligation History of colonoscopy History of cholecystectomy Family History Other COPD (chronic obstructive pulmonary disease) Cancer Hypertension Thyroid disorder Social History (Updated 12/03/24 @ 00:17 by Vijaya Downs RN) Smoking Status: Former smoker years smoked: 14 smoking status stop date: 1993 second hand exposure: Yes alcohol intake: never substance use type: marijuana current occupational status: retired Travel in the last 8 weeks?: None household members: none housing: house 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 current occupational exposures/hazards: No caffeine: Yes Have you lived/traveled outside US in past 30 days?: No Contact w/someone who lives/traveled outside US past 30 days?: No Exposure to someone with infectious disease in past 14 days?: No Do you have a fever (greater than 100.4 F or 38 C)?: No Have you tested positive for COVID-19?: No Exposed to someone with COVID-19 in past 14 days?: No Do you have a sore throat?: No Do you have a cough?: No Do you have any weakness?: No Do you have any diarrhea?: No Are you experiencing any unusual bleeding?: No Do you have any muscle aches/pain?: No Do you have any abdominal pain?: No Are you experiencing loss of taste or smell?: No Other Medical History Have you received the Flu Vaccine for this season: No Have you received the Pneumonia Vaccine: No ROS Obtained: Yes All systems reviewed & no additional complaints except as documented Physical Exam General General appearance: alert and in no apparent distress Head Head exam: atraumatic and normocephalic Eye Eye exam: Present normal appearance, PERRL and EOMI ENT ENT exam: Present normal exam and normal external ear exam Neck Neck exam: Present normal inspection, full ROM and trachea midline Chest Chest inspection: Present normal inspection and symmetric chest wall rise; Absent tenderness Respiratory Respiratory exam: Absent respiratory distress Cardiovascular Cardiovascular exam: Present regular rate, normal rhythm and other (appears warm and well perfused) Abdominal Exam Abdominal exam: Absent distention or tenderness Extremities Exam Extremities exam: Present normal inspection and full ROM Neurological Exam Neurological exam: Present alert, oriented X3 and other (Patient has no nystagmus, patient has negative Romberg sign, no obvious dysmetria, no dysarthria, no word finding difficulty.) Psychiatric Psychiatric exam: Present normal affect Skin Skin exam: Present warm and dry Medical Decision Making Medical Records Medical records reviewed: Yes I reviewed the patient's medical records. Screening: Per USPSTF and CDC recommendations, given the prevalence of disease in our region, it is our hospital?s policy to screen for HIV and viral Hepatitis for all patients aged 18 and over and those with ongoing risk factors. Binu Inquiry Pt receiving controlled substance: No Binu was queried for this patient: No Vital Signs: 04/09/25 07:40 04/09/25 07:45 04/09/25 08:00 Temperature 98.0 F Temperature Source Oral Pulse Rate 63 Pulse Rate [Left Radial] 72 Respiratory Rate 16 15 16 Blood Pressure 135/75 175/84 H Blood Pressure [Right Arm] 174/80 H Blood Pressure Mean [Right Arm] 111 02 Sat by Pulse Oximetry 95 96 Oxygen Delivery Method Room Air 04/09/25 08:15 04/09/25 08:30 Temperature Temperature Source Pulse Rate 66 66 Pulse Rate [Left Radial] Respiratory Rate 17 17 Blood Pressure 178/81 H 163/84 H Blood Pressure [Right Arm] Blood Pressure Mean [Right Arm] 02 Sat by Pulse Oximetry 96 96 Oxygen Delivery Method Lab Data Lab results reviewed: Yes I reviewed the patient's lab results. Lab Results 04/09/25 07:51: WBC 7.1, RBC 4.37, Hgb 13.1, Hct 38.6, MCV 88.3, MCH 30.0, MCHC 33.9, RDW 12.5, Plt Count 170, MPV 8.1, Neut % (Auto) 51.2, Lymph % (Auto) 30.8, Levy % (Auto) 11.5 H, Eos % (Auto) 4.8, Baso % (Auto) 0.7, Neut # (Auto) 3.6, Lymph # (Auto) 2.2, Levy # (Auto) 0.8, Eos # (Auto) 0.3, Baso # (Auto) 0.1, Sodium 134 L, Potassium 3.9, Chloride 98, Carbon Dioxide 28, Anion Gap 11.9, BUN 16, Creatinine 1.00, Estimated Creat Clear 57, Estimated GFR 54 L, Est GFR ( Amer) 65, Glucose 177 H, Calcium 9.4, Total Bilirubin 1.0, AST 27, ALT 18, Alkaline Phosphatase 69, Total Protein 7.8, Albumin 4.6, Globulin 3.2, Albumin/Globulin Ratio 1.4 04/09/25 07:51 04/09/25 07:51 Orders (Tests/Meds): ED MEDICATIONS Discontinued Medications Generic Name Dose Route Start Last Admin Trade Name Arunq PRN Reason Stop Dose Admin Meclizine HCl 50 mg 04/09/25 07:50 04/09/25 07:57 Meclizine 25mg Tablet PO 04/09/25 07:51 50 mg ONCE ONE Administration Ondansetron HCl 4 mg 04/09/25 07:50 04/09/25 07:57 Ondansetron 4mg/2ml Vial IV 04/09/25 07:51 4 mg ONCE ONE Administration ORDERS Category Date Time Status CBC w/Auto Diff [Complete Blood Count Auto Diff] Stat Lab 04/09/25 07:51 Completed CMP [Comprehensive Metabolic Panel] Stat Lab 04/09/25 07:51 Completed Medical Decision Narrative: MDM In summary, this 75-year-old female presents to the emergency department today with vertigo. Initial evaluation the patient comfortable, hemodynamically stable, intermittent vertiginous symptoms. Differential diagnosis includes but is not limited to posterior circulation stroke, M?ni?re's disease, benign paroxysmal positional vertigo, vestibular neuritis. On interview the patient reports that her symptoms now are identical to previous episodes of vertigo for which she had entirely negative stroke workups including CT scans and MRIs. The patient's vertigo is not central as it is not persistent and is entirely positional. She has no nystagmus on exam even when patient is expressing vertiginous symptoms. She has normal proprioception, normal ukxxty-me-ebap testing, and no Romberg sign. She has similar balance to her baseline and only slightly decreased ability to ambulate. She has no dysmetria, dysphonia, dysarthria, or paresthesias. Given these extremely reassuring findings I think that the likelihood of posterior circulation stroke is extremely low so we made the decision to not perform an imaging workup. The patient's symptoms significantly improved with meclizine, she was able to ambulate at her baseline and reported total resolution of symptoms. She has a plan to follow-up with her ENT tomorrow. I think it is most likely the patient is suffering from mild vestibular neuritis or M?ni?re's disease. I have prescribed her an additional dose of meclizine, counseled her that this medication could cause confusion, arrhythmia, and to take it sparingly and only continue the medication under the direction of her content director. The patient was comfortable with this plan and ready for discharge. Critical Care Critical Care Time Critical Care Time: No
--- NOTE | 2025-04-09 09:17 | PC.NURSE ---
pt ambulatory in room to wheelchair with assist x1
[2025-04-09 09:36] VITALS: BP 161/80; PULSE 61; RESP 16; TEMP 36.7; O2SAT 92
--- OUTSIDE RECORDS SUMMARY | 2025-04-09 13:00 | XMS_ITS | Encounter Summary ---
Author Organization [place] [address] Care Team Providers Care Gluer Name Role Phone Unavailable Primary Care Provider Unavailabl e Reason for Visit * Mammography (Routine) - Pending Review Specialty Diagnoses / Procedures Referred By Contac t Referred To Contact Radiology Diagnoses Encounter for screening mammogram for malignant neoplasm of breast Procedures MM MAMMO DIGITAL JACK SCREEN BILAT Radha Tapia, [place] [address] [address] Phone: tel: fax: Referral ID Status Reason Start Date Expiration Date V isits Requested Visits Authorized [id number] Pending Review 04/05/2025 04/05/2027 1 1 Encounter Details Date Type Department Care Team (Late st Contact Info) Description 04/09/2025 1:00 PM [facility] Hospital Encounter Mobile Mammography Other Location View online schedule for mobile van location [phone] Radha Tapia APRN [address] [id number] Social History Tobacco Use Types Packs/Day Years Used Date Smoking Tobacco: Never Assessed Comments Unknown Sex and Gender Information Value Date Recorded Sex Assigned at Not on file Legal Sex Female 9:50 AM EDT Gender Identity Not on file Sexual Orientation Not on file documented as of this encounter Plan of Treatment Scheduled Orders Name Type Priority Associated Diagnoses Orde r Schedule MM MAMMO DIGITAL JACK SCREEN BILAT Imaging Routine Encounter for screening mammogram for malignant neoplasm of breast 1 Occurrences starting 04/05/2025 until 04/05/2027 documented as of this encounter Visit Diagnoses Not on filedocumented in this encounter
--- OUTSIDE RECORDS SUMMARY | 2025-05-01 19:00 | XMS_ITS | Clinical Summary ---
Author Organization Unknown Care Team Providers Care Supervisor Publications Name Role Phone SUSAN SALES VENDOR, FRANK Unavailable Unavailable PAKO PT, STEVEN Unavailable Unavailable PAOLA OT, PRICILA Unavailable Unavailable CHRISTIE RN, DISHA Unavailable Unavailable ÓSCAR GUN FERTILIZER, JOLIE Unavailable Unavailabl e RUIZ SUSTAINMENT LOGISTICS ANALYST, HARI Unavailable Unavailable BETTIE BAG MAKER/ELAINE, MARIEA Unavailable Unavail able Payers Payer Name Policy Type Policy Number Effective Date Expira tion Date MEDICARE.[facility] [id number] Problems Condition Name Condition Details Condition Category Status Onset Date Resolution Date Last Treatment Date Treating Clinician Comments 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 Active 01-03 00:00: 00 INTERSTITIAL PULMONARY DISEASE, UNSPECIFIED Active 01-03 00:00: 00 CHRONIC OBSTRUCTIVE PULMONARY DISEASE, UNSPECIFIED Active 01-03 00:00: 00 ADULT FAILURE TO THRIVE Active 01-03 00:00: 00 ESSENTIAL (PRIMARY) HYPERTENSION Active 01-03 00:00: 00 TYPE 2 DIABETES MELLITUS WITH HYPERGLYCEMI A Active 01-03 00:00: 00 ANXIETY DISORDER, UNSPECIFIED Active 01-03 00:00: 00 BIPOLAR DISORDER, UNSPECIFIED Active 01-03 00:00: 00 FATTY (CHANGE OF) LIVER, NOT ELSEWHERE CLASSIFIED Active 01-03 00:00: 00 OTH DISRD OF BONE DENSITY AND STRUCTURE, UNSPECIFIED SITE Active 01-03 00:00: 00 HYPO-OSMOLAL ITY AND HYPONATREMIA Active 01-03 00:00: 00 HYPOTHYROIDI SM, UNSPECIFIED Active 01-03 00:00: 00 HYPERLIPIDEM IA, UNSPECIFIED Active 01-03 00:00: 00 [facility] (CURRENT) USE OF INHALED STEROIDS Active 01-03 00:00: 00 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 Ordering Clinician Indication Dosage Frequency Signature (SIG) Comments Components levofloxaci n 750 mg tablet 2023-06 00:00: 00 05-08 23:59 :00 No [id number] INFECTION 1 tablet DAILY 1 tablet DAILY (route: oral) Med Classific ation: Anti-Infe ctive Agents trazodone 50 mg tablet 2023-06 00:00: 00 05-12 23:59 :00 No [id number] SLEEP 1 tablet AT BEDTIME NEEDED 1 tablet AT BEDTIME NEEDED (route: oral) Med Classific ation: Central Nervous System Agents metoprolol tartrate 25 mg tablet 2023-06 00:00: 00 Yes [id number] CARDIAC 1 tablet 2 TIMES DAILY 1 tablet 2 TIMES DAILY (route: oral) Med Classific ation: Cardiovas cular Therapy Agents montelukast 10 mg tablet 2023-06 00:00: 00 Yes [id number] ALLERGIES 1 tablet DAILY 1 tablet DAILY (route: oral) Med Classific ation: Respirato ry Therapy Agents simvastatin 20 mg tablet 2023-06 00:00: 00 Yes [id number] HDL 1 tablet DAILY 1 tablet DAILY (route: oral) Med Classific ation: Cardiovas cular Therapy Agents fluoxetine 40 mg capsule 2023-06 00:00: 00 01-03 00:00 :00 No [id number] DEPRESSION 1 capsule EVERY DAY 1 capsule EVERY DAY (route: oral) Med Classific ation: Central Nervous System Agents lamotrigine 200 mg tablet 2023-06 0-23 00:00: 00 01-03 00:00 :00 No [id number] RADIATION ONCOLOGY NURSE 1 tablet DAILY 1 tablet DAILY (route: oral) Med Classific ation: Central Nervous System Agents Basaglar KwikPen U-100 Insulin 100 unit/mL (3 mL) subcutaneou s 2023-06 0-21 00:00: 00 01-03 00:00 :00 No [id number] DM 30 unit SUBCUTANEO USLY EVERY NIGHT AT BEDTIME 30 unit SUBCUTANEO USLY EVERY NIGHT AT BEDTIME (route: subcutaneo us) Med Classific ation: Endocrine levothyroxi ne 150 mcg tablet 2023-06 00:00: 00 Yes [id number] HYPOTHYROID ISM 1 tablet DAILY 1 tablet DAILY (route: oral) Med Classific ation: Endocrine losartan 100 mg tablet 2023-06 00:00: 00 Yes [id number] HTN 1 tablet DAILY 1 tablet DAILY (route: oral) Med Classific ation: Cardiovas cular Therapy Agents meclizine 25 mg tablet 2023-06 00:00: 00 Yes [id number] VERTIGO 1 tablet 3 TIMES DAILY 1 tablet 3 TIMES DAILY (route: oral) Med Classific ation: Gastroint estinal Therapy Agents ondansetron 4 mg disintegrat ing tablet 2023-06 00:00: 00 Yes [id number] NAUSEA 1 tablet EVERY 6 HOURS 1 tablet EVERY 6 HOURS (route: oral) Med Classific ation: Gastroint estinal Therapy Agents Advair Diskus 500 mcg-50 mcg/dose powder for inhalation 2023-06 00:00: 00 Yes [id number] ASTHMA, BREATHING 1 inhalat ion 2 TIMES DAILY 1 inhalation 2 TIMES DAILY (route: inhalation ) Med Classific ation: Respirato ry Therapy Agents furosemide 40 mg tablet 2023-06 00:00: 00 Yes [id number] EDEMA, WT GAIN 1 tablet NEEDED 1 tablet NEEDED (route: oral) Med Classific ation: Cardiovas cular Therapy Agents hydroxyzine HCl 25 mg tablet 2022-06 00:00: 00 01-03 00:00 :00 No [id number] ANXIETY 1 tablet DAILY 1 tablet DAILY (route: oral) Med Classific ation: Central Nervous System Agents Jardiance 10 mg tablet 2023-06 2- 00:00: 00 01-03 00:00 :00 No [id number] BS 1 tablet DAILY 1 tablet DAILY (route: oral) Med Classific ation: Endocrine prednisone 20 mg tablet 2023-06 2- 00:00: 00 05-18 23:59 :00 No [id number] BREATHING 2 tablet DAILY 2 tablet DAILY (route: oral) Med Classific ation: Endocrine spironolact one 25 mg tablet 2023-06 2- 00:00: 00 01-03 00:00 :00 No [id number] HEART 1 tablet DAILY 1 tablet DAILY (route: oral) Med Classific ation: Cardiovas cular Therapy Agents azithromyci n 250 mg tablet 2023-06 2 00:00: 00 05-21 23:59 :00 No [id number] BRONCHITIS 2 tablet DIRECTED 2 tablet DIRECTED (route: oral) Med Classific ation: Anti-Infe ctive Agents albuterol sulfate 0.63 mg/3 mL solution for nebulizatio n 2022-06 00:00: 00 Yes [id number] SOA Per instruc tions NEEDED Per instructio ns NEEDED (route: inhalation ) Med Classific ation: Respirato ry Therapy Agents bupropion HCl 75 mg tablet 09-26 00:00: 00 01-03 00:00 :00 No [id number] DEPRESSION 1 tablet DAILY 1 tablet DAILY (route: oral) Med Classific ation: Central Nervous System Agents bupropion HCl XL 150 mg 24 hr tablet, extended release 12-26 00:00: 00 Yes [id number] ANXIETY 1 tablet DAILY 1 tablet DAILY (route: oral) Med Classific ation: Central Nervous System Agents fluoxetine 40 mg capsule 12-26 00:00: 00 Yes [id number] DEPRESSION 1 capsule DAILY 1 capsule DAILY (route: oral) Med Classific ation: Central Nervous System Agents hydroxyzine pamoate 25 mg capsule 12-26 00:00: 00 Yes [id number] DEPRESSION 1 capsule DAILY 1 capsule DAILY (route: oral) Med Classific ation: Central Nervous System Agents albuterol sulfate HFA 90 mcg/actuati on aerosol inhaler 12-20 00:00: 00 Yes [id number] COPD 1 puff NEEDED 1 puff NEEDED (route: inhalation ) Med Classific ation: Respirato ry Therapy Agents spironolact one 25 mg tablet 12-19 00:00: 00 Yes [id number] HEART 1 tablet DAILY 1 tablet DAILY (route: oral) Med Classific ation: Cardiovas cular Therapy Agents amoxicillin 875 mg-potassiu m clavulanate 125 mg tablet 12-11 00:00: 00 Yes [id number] ANTIBIOTICS Per instruc tions TWICE DAILY FOR 10 DAYS Per instructio ns TWICE DAILY FOR 10 DAYS (route: oral) Med Classific ation: Anti-Infe ctive Agents azithromyci n 250 mg tablet 12-11 00:00: 00 Yes [id number] PNEUMONIA Per instruc tions ON DAY DAILY ON DAYS Per instructio ns ON DAY DAILY ON DAYS (route: oral) Med Classific ation: Anti-Infe ctive Agents insulin degludec (U-200) 200 unit/mL (3 mL) subcutaneou s pen 12-05 00:00: 00 Yes [id number] DIABETES Per instruc tions SUBCUTANEO USLY EVERY EVENING AT BEDTIME Per instructio ns SUBCUTANEO USLY EVERY EVENING AT BEDTIME (route: subcutaneo us) Med Classific ation: Endocrine azithromyci n 250 mg tablet 11-28 00:00: 00 01-03 00:00 :00 No [id number] Unavailable Per instruc tions ON DAY DAILY ON DAYS Per instructio ns ON DAY DAILY ON DAYS (route: oral) Med Classific ation: Anti-Infe ctive Agents clobetasol 0.05 % scalp solution 11-28 00:00: 00 Yes [id number] Unavailable Per instruc tions 2 TIMES PER week Per instructio ns 2 TIMES PER week (route: scalp) Med Classific ation: Dermatolo gical lamotrigine 200 mg tablet 6-23 00:00: 00 Yes [id number] DEPRESSION Per instruc tions EVERY DAY Per instructio ns EVERY DAY (route: oral) Med Classific ation: Central Nervous System Agents cefdinir 300 mg capsule 8-19 00:00: 00 Yes [id number] ANTIBIOTIC 300 mg 2 TIMES DAILY 300 mg 2 TIMES DAILY (route: oral) Med Classific ation: Anti-Infe ctive Agents Vital Signs Vital Name Observation Time Observation Value Commen ts Temperature 2025-03-27 11:05:00.000 98.2 [degF] Temperature 2025-03-22 12:25:00.000 97.5 [degF] Temperature 2025-03-14 08:45:00.000 97.6 [degF] Temperature 2025-03-13 14:00:00.000 97.8 [degF] Temperature 2025-03-07 08:53:00.000 97.5 [degF] Pulse 2025-03-27 11:05:00.000 62 /min Pulse 2025-03-22 12:25:00.000 66 /min Pulse 2025-03-14 08:45:00.000 62 /min Pulse 2025-03-13 14:00:00.000 79 /min Pulse 2025-03-07 08:53:00.000 62 /min O2 Saturation (%) 2025-03-27 11:05:00.000 96 % O2 Saturation (%) 2025-03-22 12:25:00.000 94 % O2 Saturation (%) 2025-03-14 08:45:00.000 94 % O2 Saturation (%) 2025-03-13 14:00:00.000 94 % O2 Saturation (%) 2025-03-07 08:53:00.000 96 % Respirations 2025-03-27 11:05:00.000 18 /min Respirations 2025-03-22 12:25:00.000 17 /min Respirations 2025-03-14 08:45:00.000 18 /min Respirations 2025-03-13 14:00:00.000 16 /min Respirations 2025-03-07 08:53:00.000 17 /min Weight (lbs) 2025-03-13 14:00:00.000 166.2 [lb_av] Systolic Blood Pressure 2025-03-27 11:05:00.000 122 mm [Hg] Systolic Blood Pressure 2025-03-22 12:25:00.000 126 mm [Hg] Systolic Blood Pressure 2025-03-14 08:45:00.000 116 mm [Hg] Systolic Blood Pressure 2025-03-13 14:00:00.000 124 mm [Hg] Systolic Blood Pressure 2025-03-07 08:53:00.000 122 mm [Hg] Diastolic Blood Pressure 2025-03-27 11:05:00.000 72 mm [Hg] Diastolic Blood Pressure 2025-03-22 12:25:00.000 78 mm [Hg] Diastolic Blood Pressure 2025-03-14 08:45:00.000 70 mm [Hg] Diastolic Blood Pressure 2025-03-13 14:00:00.000 70 mm [Hg] Diastolic Blood Pressure 2025-03-07 08:53:00.000 74 mm [Hg] Plan of Treatment Planned Activity Planned Date Details Comments Future Scheduled Test AGENCY MAY PERFORM A RESUMPTION OF CARE VISIT FOLLOWING ANY HOSPITAL ADMISSION. PT TO EVALUATE, OBSERVE / ASSESS, AND MONITOR, GUN FERTILIZER TO OBSERVE AND MONITOR, PROVIDE SKILLED THERAPEUTIC INTERVENTION, ACTIVITY, EDUCATION, AND TRAINING TO ADDRESS; [code = AGENCY MAY PERFORM A RESUMPTION OF CARE VISIT FOLLOWING ANY HOSPITAL ADMISSION. PT TO EVALUATE, OBSERVE / ASSESS, AND MONITOR, GUN FERTILIZER TO OBSERVE AND MONITOR, PROVIDE SKILLED THERAPEUTIC INTERVENTION, ACTIVITY, EDUCATION, AND TRAINING TO ADDRESS;] Future Scheduled Test PT/GUN FERTILIZER TO PROVIDE GAIT TRAINING FOR IMPROVED MOBILITY AND /OR TO NORMALIZE GAIT PATTERN [code = PT/GUN FERTILIZER TO PROVIDE GAIT TRAINING FOR IMPROVED MOBILITY AND /OR TO NORMALIZE GAIT PATTERN] Future Scheduled Test NEUROMUSCU LAR RE-EDUCATION / BALANCE / POSTURAL CONTROL (PT) [code = NEUROMUSCULAR RE-EDUCATION / BALANCE / POSTURAL CONTROL (PT)] Future Scheduled Test THERAPEUTI C EXERCISES AND ESTABLISHING A HOME EXERCISE PROGRAM (PT/GUN FERTILIZER) [code = THERAPEUTIC EXERCISES AND ESTABLISHING A HOME EXERCISE PROGRAM (PT/GUN FERTILIZER)] Future Scheduled Test PT TO ASSE SS / GUN FERTILIZER TO MONITOR FOR AND REPORT EARLY SIGNS OF ANTICOAGULANT TOXICITY TO THE PHYSICIAN AND/OR THE RN CLINICAL OPERATIONS ACCOUNTANT FOR PHYSICIAN NOTIFICATION AND TO PROVIDE PATIENT/CAREGIVER EDUCATION ON ANTICOAGULANT THERAPY [code = PT TO ASSESS / GUN FERTILIZER TO MONITOR FOR AND REPORT EARLY SIGNS OF ANTICOAGULANT TOXICITY TO THE PHYSICIAN AND/OR THE RN CLINICAL OPERATIONS ACCOUNTANT FOR PHYSICIAN NOTIFICATION AND TO PROVIDE PATIENT/CAREGIVER EDUCATION ON ANTICOAGULANT THERAPY] Future Scheduled Test PT / GUN FERTILIZER T O MONITOR AND EDUCATE ON OXYGEN SATURATION DURING ADLS/IADLS, NOTIFY PHYSICIAN AND/OR THE RN CLINICAL OPERATIONS ACCOUNTANT FOR PHYSICIAN NOTIFICATION AND IF O2 SATS BELOW PHYSICIAN ORDERED PARAMETERS AFTER 10 MIN OF REST [code = PT / GUN FERTILIZER TO MONITOR AND EDUCATE ON OXYGEN SATURATION DURING ADLS/IADLS, NOTIFY PHYSICIAN AND/OR THE RN CLINICAL OPERATIONS ACCOUNTANT FOR PHYSICIAN NOTIFICATION AND IF O2 SATS BELOW PHYSICIAN ORDERED PARAMETERS AFTER 10 MIN OF REST] Future Scheduled Test PT / GUN FERTILIZER T O MONITOR FOR HYPO/HYPERGLYCEMIA AND CONDUCT ROUTINE FOOT INSPECTIONS. RECORD PATIENT REPORTED BLOOD SUGAR LEVELS AND NOTIFY PHYSICIAN AND/OR THE RN CLINICAL OPERATIONS ACCOUNTANT FOR PHYSICIAN NOTIFICATION IF BLOOD SUGAR LEVELS ARE OUTSIDE ORDERED PARAMETERS. TEACH PATIENT/CAREGIVER ON DAILY FOOT INSPECTIONS [code = PT / GUN FERTILIZER TO MONITOR FOR HYPO/HYPERGLYCEMIA AND CONDUCT ROUTINE FOOT INSPECTIONS. RECORD PATIENT REPORTED BLOOD SUGAR LEVELS AND NOTIFY PHYSICIAN AND/OR THE RN CLINICAL OPERATIONS ACCOUNTANT FOR PHYSICIAN NOTIFICATION IF BLOOD SUGAR LEVELS ARE OUTSIDE ORDERED PARAMETERS. TEACH PATIENT/CAREGIVER ON DAILY FOOT INSPECTIONS] Future Scheduled Test PT / GUN FERTILIZER T O MONITOR FOR SIGNS AND SYMPTOMS OF UTI AND EDUCATE PATIENT TO MINIMIZE RISK OF DEVELOPING A UTI. [code = PT / GUN FERTILIZER TO MONITOR FOR SIGNS AND SYMPTOMS OF UTI AND EDUCATE PATIENT TO MINIMIZE RISK OF DEVELOPING A UTI.] Future Scheduled Test AGENCY MAY PERFORM A RESUMPTION OF CARE VISIT FOLLOWING ANY HOSPITAL ADMISSION. OT TO EVALUATE, OBSERVE / ASSESS, AND MONITOR, BAG MAKER TO OBSERVE AND MONITOR, PROVIDE SKILLED THERAPEUTIC INTERVENTION, ACTIVITY, EDUCATION, AND TRAINING TO ADDRESS ADLS/IADLS, ADAPTIVE EQUIPMENT, STRENGTHENING, BALANCE, AND FUNCTIONAL TRANSFERS TO MAXIMIZE SAFETY AND FUNCTIONAL INDEPENDENCE IN HOME BATHING/SHOWERING (OT/BAG MAKER) DRESSING (OT/ALLYSON) ACTIVITIES OF DAILY LIVING (OT/ALLYSON) MEAL PREPARATION AND CLEANUP (OT/ALLYSON) LIGHT HOUSEKEEPING (OT/ALLYSON) POSTURAL CONTROL/BALANCE (OT/BAG MAKER) THERAPEUTIC EXERCISE (OT/ALLYSON) OT/ALLYSON TO MONITOR FOR HYPO/HYPERGLYCEMIA AND CONDUCT ROUTINE FOOT INSPECTIONS. RECORD PATIENT REPORTED BLOOD SUGAR LEVELS AND NOTIFY PHYSICIAN AND/OR THE RN CLINICAL OPERATIONS ACCOUNTANT FOR PHYSICIAN NOTIFICATION IF BLOOD SUGAR LEVELS ARE OUTSIDE ORDERED PARAMETERS. [code = AGENCY MAY PERFORM A RESUMPTION OF CARE VISIT FOLLOWING ANY HOSPITAL ADMISSION. OT TO EVALUATE, OBSERVE / ASSESS, AND MONITOR, ALLYSON TO OBSERVE AND MONITOR, PROVIDE SKILLED THERAPEUTIC INTERVENTION, ACTIVITY, EDUCATION, AND TRAINING TO ADDRESS ADLS/IADLS, ADAPTIVE EQUIPMENT, STRENGTHENING, BALANCE, AND FUNCTIONAL TRANSFERS TO MAXIMIZE SAFETY AND FUNCTIONAL INDEPENDENCE IN HOME BATHING/SHOWERING (OT/BAG MAKER) DRESSING (OT/BAG MAKER) ACTIVITIES OF DAILY LIVING (OT/ALLYSON) MEAL PREPARATION AND CLEANUP (OT/BAG MAKER) LIGHT HOUSEKEEPING (OT/BAG MAKER) POSTURAL CONTROL/BALANCE (OT/ALLYSON) THERAPEUTIC EXERCISE (OT/ALLYSON) OT/BAG MAKER TO MONITOR FOR HYPO/HYPERGLYCEMIA AND CONDUCT ROUTINE FOOT INSPECTIONS. RECORD PATIENT REPORTED BLOOD SUGAR LEVELS AND NOTIFY PHYSICIAN AND/OR THE RN CLINICAL OPERATIONS ACCOUNTANT FOR PHYSICIAN NOTIFICATION IF BLOOD SUGAR LEVELS ARE OUTSIDE ORDERED PARAMETERS.] Goal 2025-02-27 Patient Goal - GET STRONGER Goal Patient Goal - GET STRONGER Goal Provider Goal - Goal Provider Goal - PT LTG: PATIENT WILL DEMONSTRATE IMPROVED SAFE FUNCTIONAL MOBILITY BY MAINTAINING PROPER POSTURE AND STEP LENGTH ON EVEN SURFACES USING ROLLATOR WALKER FROM CGA TO INDEPENDENT WITHIN 4 WEEKS IN ORDER TO REDUCE FALL RISK Goal Provider Goal - PT LTG: PATIENT WILL DEMONSTRATE REDUCED FALL RISK EVIDENCED BY TUG TEST (CUT SCORE >11 SECONDS INDICATES INCREASED FALL RISK) IMPROVING FROM 19 TO 12 WITHIN 4 WEEKS Goal Provider Goal - PT LTG: PATIENT WILL DEMONSTRATE INCREASED STRENGTH OF BILAT HIPS FROM 4- TO 4+ WITHIN 8 WEEKS IN ORDER TO REDUCE FALL RISK Goal Provider Goal - PT LTG: PATIENT WILL NOT EXHIBIT SIGNS AND SYMPTOMS OF ANTICOAGULANT TOXICITY THROUGHOUT EPISODE OF CARE. Goal Provider Goal - PT LTG: PATIENT WILL MAINTAIN OXYGEN SATURATION WITHIN PHYSICIAN ORDERED PARAMETERS THROUGHOUT EPISODE OF CARE. Goal Provider Goal - PATIENT S BLOOD SUGAR WILL REMAIN WELL CONTROLLED WITH SELF-MANAGEMENT THROUGHOUT EPISODE OF CARE. Goal Provider Goal - PT GOAL: PATIENT WILL NOT EXHIBIT SIGNS AND SYMPTOMS OF UTI. Goal Provider Goal - OT STG: PATIENT WILL DEMONSTRATE IMPROVED ABILITY TO PERFORM BATHING/SHOWERING AND REDUCE CAREGIVER BURDEN FROM CGA TO SBA WITHIN 4 WEEKS OT LTG: PATIENT WILL DEMONSTRATE IMPROVED ABILITY TO PERFORM BATHING/SHOWERING AND REDUCE CAREGIVER BURDEN FROM CGA TO INDEPENDENT WITHIN 8 WEEKS OT LTG: PATIENT WILL DEMONSTRATE IMPROVED ABILITY TO PERFORM UPPER BODY DRESSING TO REDUCE CAREGIVER BURDEN FROM SBA TO INDEPENDENT WITHIN 8 WEEKS OT LTG: PATIENT WILL DEMONSTRATE IMPROVED ABILITY TO PERFORM LOWER BODY DRESSING TO REDUCE CAREGIVER BURDEN FROM SBA TO INDEPENDENT WITHIN 8 WEEKS OT LTG: PATIENT WILL DEMONSTRATE IMPROVEMENT IN MODIFIED GIANCARLO INDEX SCORE FROM 84 TO 94 INDICATING DECREASED DEPENDENCY ON CAREGIVER ASSISTANCE WITH ACTIVITIES OF DAILY LIVING WITHIN 8 WEEKS OT STG: PATIENT WILL DEMONSTRATE THE ABILITY TO COMPLETE MEAL PREPARATION AND CLEANUP TO REDUCE CAREGIVER BURDEN FROM CGA TO SUPERVISION WITHIN 4 WEEKS OT LTG: PATIENT WILL DEMONSTRATE THE ABILITY TO COMPLETE MEAL PREPARATION AND CLEANUP TO REDUCE CAREGIVER BURDEN FROM CGA TO INDEPENDENT WITHIN 8 WEEKS OT STG: PATIENT WILL DEMONSTRATE THE ABILITY TO COMPLETE LIGHT HOUSEKEEPING FOR IMPROVED QUALITY OF LIFE FROM MIN A TO SBA WITHIN 4 WEEKS OT LTG: PATIENT WILL DEMONSTRATE THE ABILITY TO COMPLETE LIGHT HOUSEKEEPING FOR IMPROVED QUALITY OF LIFE FROM MIN A TO INDEPENDENT WITHIN 8 WEEKS OT LTG: PATIENT WILL DEMONSTRATE IMPROVED POSTURAL CONTROL AND DECREASED FALL RISK EVIDENCED BY AN IMPROVEMENT IN FUNCTIONAL REACH SCORE FROM 5 INCHES TO 8 INCHES WITHIN 8 WEEKS IN ORDER TO MAXIMIZE SAFETY WITH TRANSITIONAL MOVEMENTS DURING ADL PERFORMANCE OT LTG: PATIENT WILL DEMONSTRATE IMPROVED BALANCE/SENSORY INTEGRATION OF BALANCE SYSTEMS EVIDENCED BY AN IMPROVEMENT IN MCTSIB SCORE FROM 1/4 TO 2/4 WITHIN 8 WEEKS IN ORDER TO MAXIMIZE SAFETY WITH TRANSITIONAL MOVEMENTS DURING ADL PERFORMANCE OT LTG: PATIENT WILL DEMONSTRATE IMPROVED MUSCLE STRENGTH EVIDENCED BY AN IMPROVEMENT IN MMT/FUNCTIONAL STRENGTH FROM 4-/5 TO 4/5 WITHIN 8 WEEKS IN ORDER TO MAXIMIZE ADL PERFORMANCE OT LTG: PATIENT S BLOOD SUGAR WILL REMAIN WELL CONTROLLED THROUGHOUT EPISODE OF CARE AND PATIENT WILL NOT HAVE ANY SIGNS OF SKIN BREAKDOWN OR COMPLICATIONS THROUGHOUT EPISODE OF CARE. Encounters Start Date/Time End Date/Time Encounter Type Admission Type Attending [facility] Care Department Encounter ID Discharge Date Discharge Status Discharge Condition Discharge Reason Percent Goals Met 2025-03-04 00:00:00 2025-05-02 00:00:00 Outpatient RECERTIFIC STEVEN JEONG [facility] [id number]
== END 2025-04-09 09:37 | disposition home or self-care (01) ==
PROVIDERS: Emergency Provider Student in an Organized Health Care Education/Training Program; PCP Nurse Practitioner Family
DX: R42 Dizziness and giddiness (principal); R11.0 Nausea
CPT/HCPCS: 80053; 85025; 93005; 96374; 99284; J2405